=== PATIENT | female | born 1950 | race Caucasian/White ===

== ENCOUNTER 2016-07-09 | Inpatient (IN) | payer MEDICARE, MEDICAID ==
[~2016-07-09] VITALS: Ht 172.7 cm; Wt 103.9 kg
[~2016-07-09] MED LIST: ACET160E13 GT; ACID1TAB4 GT; BACL10TA GT; CALC500T13 PO; COD500OI3 GT; DEXT1DRO3 OP; FOLI1TAB16 GT; GUAR1PAC4 GT; HYDROCODONE 5/325 GT; INSU100V28 SQ; IVER3TAB2 GT; Insulin Glargine,Hum.rec.anlog SQ; LEVE100S GT; LOPE2CAP40 GT; MENT71OI TP; MULT1TAB11 GT; PHEN20EL5 GT; PROSTAT GT; RANI150T8 GT; SIMILASAN EACHEYE; Vancomycin Hcl PO; [UNRECOGNIZED DRUG - CODE] GT; [UNRECOGNIZED DRUG - CODE] IV
--- NOTE | 2016-07-11 07:30 | NUR ---
Received a call from Lab regarding patient's critical Lab result: blood glucose of 346; however, Doctor's order is to call MD for blood glucose above 450. Will continue to monitor.
[2016-07-11 08:00] VITALS: BP 102/66
--- NOTE | 2016-07-11 08:10 | NUR ---
PT WAS RECEIVED ON HT-50 VENT WITH SETTINGS AC12, VT450, PEEP +5, FIO2 35%. PT TRACH SECURED AND INTACT WITH TIE. PT TRACH SIZE SHILEY 6. PT HME WAS CHANGED. PT SUCTION WITH SMALL AMOUNT OF SECRETION OBTAIN. PT AT THIS TIME HAS NO DISTRESS AND TOLERATING VENT WELL. PT AMBU-BAG AND BACK UP TRACH AT BED SIDE. VENT ALARMS ON AND AUDIBLE. WILL CONTINUE TO MONITOR PT THROUGHOUT SHIFT.
--- NOTE | 2016-07-11 11:50 | NUR ---
Paged Dr. Jorgensen, regarding abnormal Lab of Potassium 3.4. With new order, noted and carried out.
--- NOTE | 2016-07-11 15:58 | NUR ---
Seen and examined by VALE Lomax with no new orders.
[2016-07-11] MEDS ORDERED: COD LIVER OIL/ZINC OXIDE OINT 113 GM TUBE TOP PRN (16:30)
[2016-07-11] MEDS ORDERED: POLYVINYL ALCOHOL OPHT DROPS 15 ML BOTTLE EACHEYE PRN (16:30)
[2016-07-11] MEDS ORDERED: HYDROGEN PEROXIDE 3% 118 ML BOTTLE TP PRN (16:30)
[2016-07-11] MEDS ORDERED: DIABETICSOURCE AC 1000ML LIQUID GT PRN (16:30)
[2016-07-11] MEDS ORDERED: DEXTROSE 50% 50 ML DISP.SYRIN IV PRN (16:30)
[2016-07-11] MEDS: BLOOD SUGAR DIAGNOSTIC 1 EACH STRIP VI SCH (17:28)
[2016-07-11] MEDS: INSULIN REGULAR, HUMAN 300 UNIT/3 ML VIAL SQ PRN (17:28)
[2016-07-11] MEDS: BACLOFEN 10 MG TABLET GT SCH (17:28)
[2016-07-11] MEDS: DIABETICSOURCE AC 1000ML LIQUID GT PRN (18:18)
[2016-07-11] MEDS: COD LIVER OIL/ZINC OXIDE OINT 113 GM TUBE TOP SCH (21:00)
[2016-07-11] MEDS: ACIDOPHILUS/BULGARICUS CHEW TAB GT SCH (21:00)
[2016-07-11] MEDS: HYDROGEN PEROXIDE 3% 118 ML BOTTLE TP SCH (21:00)
[2016-07-11] MEDS: CALCIUM CARBONATE 500 MG TAB.CHEW GT SCH (21:00)
[2016-07-11] MEDS: PHENOBARBITAL GT SCH (21:00)
[2016-07-11] MEDS: FAMOTIDINE 20 MG TABLET GT SCH (21:00)
[2016-07-11] MEDS: INSULIN DETEMIR 300 UNIT/3 ML CARTRIDGE SQ SCH (21:00)
[2016-07-11] MEDS: NEOMY/BACITRA/POLYMYXIN B OINT UD PACKET TP SCH (21:00)
[2016-07-11] MEDS: INSULIN NPH 1,000 UNITS/10 ML VIAL SQ SCH (21:00)
[2016-07-11] MEDS: LEVETIRACETAM 500 MG/5 ML LIQUID UDC GT SCH (21:00)
[2016-07-11] MEDS: FISH OIL GT SCH (21:00)
[2016-07-11] MEDS: [UNRECOGNIZED DRUG - OTHER] GT SCH (21:00)
[2016-07-11] MEDS: NUTRISOURCE FIBER 4 GM PACKET GT SCH (22:17)
[2016-07-11 23:34] VITALS: BP 93/55
[2016-07-12] MEDS: INSULIN REGULAR, HUMAN 300 UNIT/3 ML VIAL SQ PRN ×4 (01:02→18:05)
--- NOTE | 2016-07-12 03:00 | NUR ---
PT ON CONT HT 50 VENT WITH SHILEY # [address] AND SECURED, WITH SAME CURRENT VENT SETTINGS, PT DOES ASSIST AT TIMES, SPEEDS UP BREATHING AND THEN SLOWS DOWN, SUCTIONED LIGHT PALE YELL TINGE SECRETIONS, GOOD COUGH EFFORT, CHANGE HME, CHECK CUFF, NO VENT CHANGES MADE AT THIS TIME, ALL ALARMS OK, AMBU BAG AT BEDSIDE.Andi FERGUSON RCP Addendum: 07/12/16 at 0302 by ETHEL FERGUSON RT Amended: Links added.
[2016-07-12] MEDS: BLOOD SUGAR DIAGNOSTIC 1 EACH STRIP VI SCH ×4 (05:24→18:03)
[2016-07-12] MEDS: NUTRISOURCE FIBER 4 GM PACKET GT SCH ×3 (05:24→21:37)
[2016-07-12] MEDS: BACLOFEN 10 MG TABLET GT SCH ×4 (05:24→18:03)
[2016-07-12] MEDS: FUROSEMIDE 40 MG/4 ML GT SCH (08:03)
[2016-07-12] MEDS: LEVETIRACETAM 500 MG/5 ML LIQUID UDC GT SCH ×2 (08:03→21:31)
[2016-07-12] MEDS: ACIDOPHILUS/BULGARICUS CHEW TAB GT SCH ×2 (08:03→21:30)
[2016-07-12] MEDS: COD LIVER OIL/ZINC OXIDE OINT 113 GM TUBE TOP SCH ×2 (08:04→21:36)
[2016-07-12] MEDS: PHENOBARBITAL GT SCH ×2 (08:04→21:32)
[2016-07-12] MEDS: HYDROGEN PEROXIDE 3% 118 ML BOTTLE TP SCH ×2 (08:04→21:36)
[2016-07-12] MEDS: NEOMY/BACITRA/POLYMYXIN B OINT UD PACKET TP SCH ×2 (08:04→21:37)
[2016-07-12] MEDS: FAMOTIDINE 20 MG TABLET GT SCH ×2 (08:04→21:32)
[2016-07-12] MEDS: VITAMINS A AND D OINT TP SCH (08:05)
[2016-07-12] MEDS: POTASSIUM CHLORIDE 20 MEQ TAB.PRT.SR XX SCH ×2 (08:05→17:00)
[2016-07-12] MEDS: INSULIN NPH 1,000 UNITS/10 ML VIAL SQ SCH ×2 (08:07→21:41)
[2016-07-12 08:18] VITALS: BP 111/58
[2016-07-12] MEDS ORDERED: FUROSEMIDE 40 MG TABLET GT SCH (09:00)
[2016-07-12 20:00] VITALS: BP 90/55
--- NOTE | 2016-07-12 20:08 | NUR ---
Received pt on HT-50 vent with the following settings of AC-12, Vt-450, PEEP+5, FIO2-35%, trached with Shiley#6 DCT trach, which is in the place and secure. No s/s of respiratory distress noted. Airway care done, pt responded to physical stimuli. Resus. bag and back up trach at bedside. Vent and alarms on and audible.
[2016-07-12] MEDS: FISH OIL GT SCH (21:32)
[2016-07-12] MEDS: [UNRECOGNIZED DRUG - OTHER] GT SCH (21:32)
[2016-07-12] MEDS: CALCIUM CARBONATE 500 MG TAB.CHEW GT SCH (21:33)
[2016-07-12] MEDS: INSULIN DETEMIR 300 UNIT/3 ML CARTRIDGE SQ SCH (21:40)
[2016-07-12] MEDS: DIABETICSOURCE AC 1000ML LIQUID GT PRN (21:46)
--- NOTE | 2016-07-13 | NUR ---
Patients BS 261, insulin coverage given.
[2016-07-13] MEDS: BACLOFEN 10 MG TABLET GT SCH ×4 (00:41→17:58)
[2016-07-13] MEDS: BLOOD SUGAR DIAGNOSTIC 1 EACH STRIP VI SCH ×4 (00:46→17:59)
[2016-07-13] MEDS: INSULIN REGULAR, HUMAN 300 UNIT/3 ML VIAL SQ PRN ×4 (00:48→18:00)
[2016-07-13] MEDS: NUTRISOURCE FIBER 4 GM PACKET GT SCH ×3 (05:12→21:56)
[2016-07-13 08:00] VITALS: BP 121/66
[2016-07-13] MEDS: LEVETIRACETAM 500 MG/5 ML LIQUID UDC GT SCH ×2 (09:26→21:55)
[2016-07-13] MEDS: ACIDOPHILUS/BULGARICUS CHEW TAB GT SCH ×2 (09:26→21:54)
[2016-07-13] MEDS: FUROSEMIDE 40 MG/4 ML GT SCH (09:27)
[2016-07-13] MEDS: PHENOBARBITAL GT SCH ×2 (09:27→21:55)
[2016-07-13] MEDS: FAMOTIDINE 20 MG TABLET GT SCH ×2 (09:29→21:55)
[2016-07-13] MEDS: NEOMY/BACITRA/POLYMYXIN B OINT UD PACKET TP SCH ×2 (09:30→21:56)
[2016-07-13] MEDS: POTASSIUM CHLORIDE 20 MEQ TAB.PRT.SR XX SCH ×2 (09:30→17:58)
[2016-07-13] MEDS: INSULIN NPH 1,000 UNITS/10 ML VIAL SQ SCH ×2 (09:30→21:56)
[2016-07-13] MEDS: COD LIVER OIL/ZINC OXIDE OINT 113 GM TUBE TOP SCH ×2 (09:30→21:56)
[2016-07-13] MEDS: HYDROGEN PEROXIDE 3% 118 ML BOTTLE TP SCH ×2 (09:30→21:56)
[2016-07-13] MEDS: VITAMINS A AND D OINT TP SCH (09:30)
--- NOTE | 2016-07-13 13:37 | NUR ---
INTERDISCIPLINARY PLAN OF CARE CONFERENCE was held today. Patient's family was invited to the meeting, but they were unable to attend. Dr. Gilbert and the Interdisciplinary Team reviewed the current plan of care in detail. RN provided updates on patient's medical condition and current medications. RN also reported that patient's isolation has been discontinued. See RN IDT conference notes. No other major changes were reported. See also all other disciplines IDT notes and physician's progress notes for additional details.
--- NOTE | 2016-07-13 19:56 | NUR ---
Received pt on HT-50 vent with the following settings of AC-12, Vt-450, PEEP+5, FIO2-35%, trached with Shiley#6 DCT trach, which is in the place and secure. No respiratory distress noted. Airway care done, pt responded to physical stimuli. Resus. bag and back up trach at bedside. Vent and alarms checked and reset.
[2016-07-13 20:00] VITALS: BP 97/51
[2016-07-13] MEDS: DIABETICSOURCE AC 1000ML LIQUID GT PRN (21:30)
[2016-07-13] MEDS: CALCIUM CARBONATE 500 MG TAB.CHEW GT SCH (21:55)
[2016-07-13] MEDS: FISH OIL GT SCH (21:55)
[2016-07-13] MEDS: INSULIN DETEMIR 300 UNIT/3 ML CARTRIDGE SQ SCH (21:55)
[2016-07-13] MEDS: [UNRECOGNIZED DRUG - OTHER] GT SCH (21:55)
[2016-07-14] MEDS: BACLOFEN 10 MG TABLET GT SCH ×5 (00:16→23:13)
[2016-07-14] MEDS: INSULIN REGULAR, HUMAN 300 UNIT/3 ML VIAL SQ PRN ×5 (00:21→23:36)
[2016-07-14] MEDS: BLOOD SUGAR DIAGNOSTIC 1 EACH STRIP VI SCH ×5 (00:23→23:13)
[2016-07-14] MEDS: NUTRISOURCE FIBER 4 GM PACKET GT SCH ×3 (05:23→21:34)
--- NOTE | 2016-07-14 07:50 | NUR ---
PT ON HT-50 VENT, SETTINGS AC12 450VT PEEP+5 35%FIO2. SHILEY 6DCT, TRACH CUFF INFLATED, NO LEAK PRESENT USING MINIMAL OCCLUDING TECH, TRACH IS IN PLACE, PATENT AND SECURED WITH TRACH TIES. NO S/S OF RESPIRATORY DISTRESS NOTED AT THIS TIME. PT SUCTIONED SM/MOD AMOUNT OF YELLOWISH THICK SECRETIONS. BVM AND BACK UP TRACH AT BEDSIDE. ALARMS AUDIBLE, CHECKED AND RESET. PPE USED. WILL CONTINUE TO MONITOR AND REPORT ANY CHANGES.
[2016-07-14 08:00] VITALS: BP 107/67
--- NOTE | 2016-07-14 08:32 | NUR ---
Back of the neck excoriation noted, topical treatment ordered to apply triamcinolone 0.1% cream and nystatin cream, cover with abdominal pad qshift x21 days.
[2016-07-14] MEDS: ACIDOPHILUS/BULGARICUS CHEW TAB GT SCH ×2 (09:12→21:32)
[2016-07-14] MEDS: LEVETIRACETAM 500 MG/5 ML LIQUID UDC GT SCH ×2 (09:12→21:32)
[2016-07-14] MEDS: FUROSEMIDE 40 MG/4 ML GT SCH (09:16)
[2016-07-14] MEDS: PHENOBARBITAL GT SCH ×2 (09:17→21:33)
[2016-07-14] MEDS: FAMOTIDINE 20 MG TABLET GT SCH ×2 (09:17→21:33)
[2016-07-14] MEDS: COD LIVER OIL/ZINC OXIDE OINT 113 GM TUBE TOP SCH ×2 (09:17→21:34)
[2016-07-14] MEDS: TRIAMCINOLONE ACET 0.1% CREAM 15 GM TUBE TP SCH ×2 (09:18→21:34)
[2016-07-14] MEDS: HYDROGEN PEROXIDE 3% 118 ML BOTTLE TP SCH ×2 (09:18→21:33)
[2016-07-14] MEDS: VITAMINS A AND D OINT TP SCH (09:19)
[2016-07-14] MEDS: NEOMY/BACITRA/POLYMYXIN B OINT UD PACKET TP SCH ×2 (09:19→21:34)
[2016-07-14] MEDS: NYSTATIN CREAM 30 GM TUBE TP SCH ×2 (09:19→21:34)
[2016-07-14] MEDS: POTASSIUM CHLORIDE 20 MEQ TAB.PRT.SR XX SCH ×2 (09:20→17:09)
[2016-07-14] MEDS: INSULIN NPH 1,000 UNITS/10 ML VIAL SQ SCH ×2 (09:32→21:56)
[2016-07-14 20:00] VITALS: BP 103/60
[2016-07-14] MEDS: FISH OIL GT SCH (21:32)
[2016-07-14] MEDS: [UNRECOGNIZED DRUG - OTHER] GT SCH (21:32)
[2016-07-14] MEDS: CALCIUM CARBONATE 500 MG TAB.CHEW GT SCH (21:33)
[2016-07-14] MEDS: INSULIN DETEMIR 300 UNIT/3 ML CARTRIDGE SQ SCH (21:55)
[2016-07-14] MEDS: DIABETICSOURCE AC 1000ML LIQUID GT PRN (21:59)
--- NOTE | 2016-07-15 03:51 | NUR ---
PT ON CONT HT 50 VENT WITH SHILEY #[address] AND SECURED, WITH SAME CURRENT VENT SETTINGS, PT DOES ASSIST AT TIMES, GOOD COUGH EFFORT, CHECK CUFF, CHANGE HME, SUCTIONED LIGHT PALE YELL TINGE SECRETIONS, NO VENT CHANGES MADE AT THIS TIME, ALL ALARMS OK, AMBU BAG AT BEDSIDE, PT STABLE.Andi CHAKRABORTYP Addendum: 07/15/16 at 0353 by ETHEL FERGUSON RT Amended: Links added.
[2016-07-15] MEDS: BACLOFEN 10 MG TABLET GT SCH ×3 (05:11→18:35)
[2016-07-15] MEDS: NUTRISOURCE FIBER 4 GM PACKET GT SCH ×3 (05:11→21:31)
[2016-07-15] MEDS: BLOOD SUGAR DIAGNOSTIC 1 EACH STRIP VI SCH ×3 (05:11→18:35)
[2016-07-15] MEDS: INSULIN REGULAR, HUMAN 300 UNIT/3 ML VIAL SQ PRN ×3 (05:13→18:38)
[2016-07-15 08:05] VITALS: BP 95/64
[2016-07-15] MEDS: ACIDOPHILUS/BULGARICUS CHEW TAB GT SCH ×2 (08:35→21:29)
[2016-07-15] MEDS: FAMOTIDINE 20 MG TABLET GT SCH ×2 (08:36→21:30)
[2016-07-15] MEDS: FUROSEMIDE 40 MG/4 ML GT SCH (08:36)
[2016-07-15] MEDS: LEVETIRACETAM 500 MG/5 ML LIQUID UDC GT SCH ×2 (08:36→21:29)
[2016-07-15] MEDS: PHENOBARBITAL GT SCH ×2 (08:36→21:30)
[2016-07-15] MEDS: COD LIVER OIL/ZINC OXIDE OINT 113 GM TUBE TOP SCH ×2 (08:37→21:31)
[2016-07-15] MEDS: HYDROGEN PEROXIDE 3% 118 ML BOTTLE TP SCH ×2 (08:37→21:31)
[2016-07-15] MEDS: TRIAMCINOLONE ACET 0.1% CREAM 15 GM TUBE TP SCH ×2 (08:37→21:31)
[2016-07-15] MEDS: VITAMINS A AND D OINT TP SCH (08:38)
[2016-07-15] MEDS: NYSTATIN CREAM 30 GM TUBE TP SCH ×2 (08:38→21:31)
[2016-07-15] MEDS: NEOMY/BACITRA/POLYMYXIN B OINT UD PACKET TP SCH ×2 (08:38→21:31)
[2016-07-15] MEDS: POTASSIUM CHLORIDE 20 MEQ TAB.PRT.SR XX SCH ×2 (08:38→17:23)
[2016-07-15] MEDS: DIABETICSOURCE AC 1000ML LIQUID GT PRN ×2 (08:38→21:38)
[2016-07-15] MEDS: INSULIN NPH 1,000 UNITS/10 ML VIAL SQ SCH ×2 (08:40→21:32)
[2016-07-15 13:54] LABS: CREATININE 0.9 mg/dL (0.6-1.3); POTASSIUM 3.8 mmol/L (3.5-5.1)
[2016-07-15] MEDS: [UNRECOGNIZED DRUG - OTHER] GT SCH (21:30)
[2016-07-15] MEDS: FISH OIL GT SCH (21:30)
[2016-07-15] MEDS: CALCIUM CARBONATE 500 MG TAB.CHEW GT SCH (21:30)
[2016-07-15] MEDS: INSULIN DETEMIR 300 UNIT/3 ML CARTRIDGE SQ SCH (21:32)
[2016-07-15 22:04] VITALS: BP 92/46
--- NOTE | 2016-07-15 23:53 | NUR ---
PT ON CONT HT 50 VENT WITH SHILEY # [address] AND SECURED, WITH SAME CURRENT VENT SETTINGS, PT DOES ASSIST AT TIMES, CHECK CUFF, CHANGE HME AND PASCUAL, SUCTIONED LIGHT PALE YELL TINGE SECRETIONS, WITH GOOD COUGH EFFORT, ALL ALARMS OK, AMBU BAG AT BEDSIDE, NO VENT CHANGES MADE AT THIS TIME.Andi FERGUSON RCP Addendum: 07/15/16 at 2355 by ETHEL FERGUSON RT Amended: Links added.
[2016-07-16] MEDS: BACLOFEN 10 MG TABLET GT SCH ×4 (00:10→17:16)
[2016-07-16] MEDS: BLOOD SUGAR DIAGNOSTIC 1 EACH STRIP VI SCH ×4 (00:10→17:16)
[2016-07-16] MEDS: INSULIN REGULAR, HUMAN 300 UNIT/3 ML VIAL SQ PRN ×4 (00:11→17:17)
[2016-07-16] MEDS: NUTRISOURCE FIBER 4 GM PACKET GT SCH ×3 (05:39→21:37)
--- NOTE | 2016-07-16 07:27 | NUR ---
Pt received in bed, laying semi-Huff's, obtunded - unable to communicate, withdraws to stimuli.. Pt trach: Surekhaley [address]/secure with tie, no sign of irritation noted around/under trach tie.. Trach site clean/dry at this time, stoma appears normal, no discoloration noted.. Continuous mechanical ventilation, vent: HT-50 w/settings: A/C 12, Vt 450, PEEP +5, FiO2 35%, tolerating well, no changes made to vent settings at this time.. Vent alarms checked, alarms are on/audible and functioning properly at this time.. BVM/back up trach at bedside.. No s/s of respiratory distress/S.O.B noted.. Will continue to monitor..
[2016-07-16 08:06] VITALS: BP 106/64
[2016-07-16] MEDS: ACIDOPHILUS/BULGARICUS CHEW TAB GT SCH ×2 (09:00→21:35)
[2016-07-16] MEDS: LEVETIRACETAM 500 MG/5 ML LIQUID UDC GT SCH ×2 (09:00→21:35)
[2016-07-16] MEDS: FAMOTIDINE 20 MG TABLET GT SCH ×2 (09:01→21:36)
[2016-07-16] MEDS: FUROSEMIDE 40 MG/4 ML GT SCH (09:01)
[2016-07-16] MEDS: PHENOBARBITAL GT SCH ×2 (09:01→21:36)
[2016-07-16] MEDS: INSULIN NPH 1,000 UNITS/10 ML VIAL SQ SCH ×2 (09:02→21:14)
[2016-07-16] MEDS: NEOMY/BACITRA/POLYMYXIN B OINT UD PACKET TP SCH ×2 (09:03→21:37)
[2016-07-16] MEDS: HYDROGEN PEROXIDE 3% 118 ML BOTTLE TP SCH ×2 (09:03→21:36)
[2016-07-16] MEDS: COD LIVER OIL/ZINC OXIDE OINT 113 GM TUBE TOP SCH ×2 (09:03→21:36)
[2016-07-16] MEDS: POTASSIUM CHLORIDE 20 MEQ TAB.PRT.SR XX SCH ×2 (09:03→17:16)
[2016-07-16] MEDS: NYSTATIN CREAM 30 GM TUBE TP SCH ×2 (09:03→21:36)
[2016-07-16] MEDS: TRIAMCINOLONE ACET 0.1% CREAM 15 GM TUBE TP SCH ×2 (09:03→21:36)
[2016-07-16] MEDS: VITAMINS A AND D OINT TP SCH (09:03)
--- NOTE | 2016-07-16 19:45 | NUR ---
Pt received in semi diaz position, has limited response to verbal stimuli, and is on Continuous mechanical ventilation via trach. Trach is a Shiley 8. Trach is patent and secure. No irritation or redness noted around stoma or trach tie. Pt is on [place] HT-50 vent with settings of A/C-12, VT-450, FIO2-35%. Tolerating vent settings well. SpO2-98%. HME changed. PPE used. Vent alarm parameters checked, on and audible. Vent plugged into red emergency outlet. Bag/valve/mask and back up trach bedside. Addendum: 07/29/16 at 1724 by ANTON HORVATH RT Wrong size entered incorrectly. Actual size is Shiley 6
[2016-07-16] MEDS: INSULIN DETEMIR 300 UNIT/3 ML CARTRIDGE SQ SCH (21:13)
[2016-07-16] MEDS: [UNRECOGNIZED DRUG - OTHER] GT SCH (21:36)
[2016-07-16] MEDS: FISH OIL GT SCH (21:36)
[2016-07-16] MEDS: CALCIUM CARBONATE 500 MG TAB.CHEW GT SCH (21:36)
[2016-07-16] MEDS: DIABETICSOURCE AC 1000ML LIQUID GT PRN (22:47)
[2016-07-16 23:31] VITALS: BP 110/58
[2016-07-17] MEDS: BLOOD SUGAR DIAGNOSTIC 1 EACH STRIP VI SCH ×4 (00:37→18:05)
[2016-07-17] MEDS: INSULIN REGULAR, HUMAN 300 UNIT/3 ML VIAL SQ PRN ×4 (01:02→18:06)
[2016-07-17] MEDS: BACLOFEN 10 MG TABLET GT SCH ×4 (06:04→17:41)
[2016-07-17] MEDS: NUTRISOURCE FIBER 4 GM PACKET GT SCH ×3 (06:04→21:30)
[2016-07-17 08:00] VITALS: BP 114/63
[2016-07-17] MEDS: ACIDOPHILUS/BULGARICUS CHEW TAB GT SCH ×2 (08:02→21:28)
[2016-07-17] MEDS: LEVETIRACETAM 500 MG/5 ML LIQUID UDC GT SCH ×2 (08:02→21:28)
[2016-07-17] MEDS: PHENOBARBITAL GT SCH ×2 (08:03→21:29)
[2016-07-17] MEDS: FAMOTIDINE 20 MG TABLET GT SCH ×2 (08:03→21:29)
[2016-07-17] MEDS: INSULIN NPH 1,000 UNITS/10 ML VIAL SQ SCH ×2 (08:03→21:10)
[2016-07-17] MEDS: FUROSEMIDE 40 MG/4 ML GT SCH (08:03)
[2016-07-17] MEDS: COD LIVER OIL/ZINC OXIDE OINT 113 GM TUBE TOP SCH ×2 (08:03→21:29)
[2016-07-17] MEDS: NEOMY/BACITRA/POLYMYXIN B OINT UD PACKET TP SCH ×2 (08:04→21:29)
[2016-07-17] MEDS: TRIAMCINOLONE ACET 0.1% CREAM 15 GM TUBE TP SCH ×2 (08:04→21:29)
[2016-07-17] MEDS: NYSTATIN CREAM 30 GM TUBE TP SCH ×2 (08:04→21:29)
[2016-07-17] MEDS: VITAMINS A AND D OINT TP SCH (08:04)
[2016-07-17] MEDS: POTASSIUM CHLORIDE 20 MEQ TAB.PRT.SR XX SCH ×2 (08:04→17:41)
[2016-07-17] MEDS: HYDROGEN PEROXIDE 3% 118 ML BOTTLE TP SCH ×2 (08:04→21:29)
--- NOTE | 2016-07-17 08:05 | NUR ---
RECEIVED ON CONTINUOUS VENT AC 14 VT 450 PEEP 5 FIO2 35%. TRACH IN PLACE AND SECURED. BACK UP TRACH AND AMBU BAG AT BEDSIDE. SUCTION SMALL AMOUNT THICK PALE YELLOW SECRETIONS. VENT CHECKED, ALARMS WORKING WELL AND AUDIBLE. VENT CHECKED, ALARMS WORKING WELL AND AUDIBLE. NO DISTRESS NOTED AT THIS TIME. WILL CONTINUE TO MONITOR.
--- NOTE | 2016-07-17 10:55 | NUR ---
ESTEFANÍA spoke with patient's father Paolo Zhou [phone] regarding the need for him to sign the annual admission forms for patient. Mr. Zhou stated that he was not feeling well and would probably not be able to come in this week. SW offered to mail him the forms, but Mr. Zhou stated that he will try to come in next week to meet with SW and for SW not to mail the forms to him just yet. ESTEFANÍA agreed, and will follow-up with Mr. Zhou next week.
--- NOTE | 2016-07-17 11:47 | NUR ---
SEEN BY HARSH FULLER.
--- NOTE | 2016-07-17 14:59 | NUR ---
SEEN BY DENISE FULLER.
--- NOTE | 2016-07-17 20:55 | NUR ---
Pt received on HT-50 ventilator with current settings of AC 12, VT 450, Peep +5, FiO2 35%. Pt has a Shiley 6 DCT trach which is secured with foam ties and is patent. No signs of respiratory distress noted at this time, pt tolerating vent settings well. Changed HME. Suctioned pt with small amount of thick pale-yellowish secretions. Vent alarms functioning and audible. Ambu-bag and back-up trach is at bedside. Will continue to monitor pt throughout shift.
[2016-07-17] MEDS: INSULIN DETEMIR 300 UNIT/3 ML CARTRIDGE SQ SCH (21:09)
[2016-07-17] MEDS: FISH OIL GT SCH (21:28)
[2016-07-17] MEDS: [UNRECOGNIZED DRUG - OTHER] GT SCH (21:28)
[2016-07-17] MEDS: CALCIUM CARBONATE 500 MG TAB.CHEW GT SCH (21:29)
[2016-07-17] MEDS: DIABETICSOURCE AC 1000ML LIQUID GT PRN (21:39)
[2016-07-17 21:55] VITALS: BP 120/67
[2016-07-18] MEDS: INSULIN REGULAR, HUMAN 300 UNIT/3 ML VIAL SQ PRN ×4 (01:12→18:23)
--- NOTE | 2016-07-18 05:50 | NUR ---
Transferred pt to room 402, due to room scheduled to be painted. Used ambu-bag during transport. Pt subsequently placed back on same vent, no changes to settings. Alarms connected and functioning. Plugged in vent to red-outlet. No distress, no complications during transport.
[2016-07-18] MEDS: NUTRISOURCE FIBER 4 GM PACKET GT SCH ×3 (06:02→21:57)
[2016-07-18] MEDS: BACLOFEN 10 MG TABLET GT SCH ×5 (06:02→23:11)
[2016-07-18] MEDS: BLOOD SUGAR DIAGNOSTIC 1 EACH STRIP VI SCH ×4 (06:03→18:19)
--- NOTE | 2016-07-18 07:29 | NUR ---
PT RECEIVED ON HT-50 VENT, SETTINGS AC 12, Vt 450, PEEP +5, FIO2 35%. SHILEY 6 TRACH IS PATENT AND SECURED WITH TIES. DOING WELL ON CURRENT SETTING. NO SOB AT THIS TIME. SUCTIONED AND LAVAGED SMALL AMOUNT OF PALE YELLOW THICK SECRETIONS. HME CHANGED. ALARMS ARE AND AUDIBLE, BVM AND BACK UP TRACH AT BEDSIDE. WILL CONTINUE TO MONITOR.
--- NOTE | 2016-07-18 08:41 | NUR ---
NOTED DURING MORNING CARE PT. WITH LEFT FOOT SMALL TOE REDNESS,LOCAL TX STARTED FROM HARSH Cowan AND PICTURE TAKEN.
[2016-07-18] MEDS: LEVETIRACETAM 500 MG/5 ML LIQUID UDC GT SCH ×2 (09:25→21:55)
[2016-07-18] MEDS: ACIDOPHILUS/BULGARICUS CHEW TAB GT SCH ×2 (09:25→21:54)
[2016-07-18] MEDS: FUROSEMIDE 40 MG/4 ML GT SCH (09:26)
[2016-07-18] MEDS: FAMOTIDINE 20 MG TABLET GT SCH ×2 (09:27→21:55)
[2016-07-18] MEDS: HYDROGEN PEROXIDE 3% 118 ML BOTTLE TP SCH ×2 (09:27→21:56)
[2016-07-18] MEDS: POTASSIUM CHLORIDE 20 MEQ TAB.PRT.SR XX SCH ×2 (09:27→17:00)
[2016-07-18] MEDS: TRIAMCINOLONE ACET 0.1% CREAM 15 GM TUBE TP SCH ×2 (09:27→21:56)
[2016-07-18] MEDS: VITAMINS A AND D OINT TP SCH ×2 (09:27→09:41)
[2016-07-18] MEDS: NEOMY/BACITRA/POLYMYXIN B OINT UD PACKET TP SCH ×3 (09:27→21:56)
[2016-07-18] MEDS: PHENOBARBITAL GT SCH ×2 (09:27→21:55)
[2016-07-18] MEDS: NYSTATIN CREAM 30 GM TUBE TP SCH ×2 (09:27→21:56)
[2016-07-18] MEDS: COD LIVER OIL/ZINC OXIDE OINT 113 GM TUBE TOP SCH ×2 (09:27→21:56)
[2016-07-18 09:30] VITALS: BP 91/52
[2016-07-18] MEDS: INSULIN NPH 1,000 UNITS/10 ML VIAL SQ SCH ×2 (09:30→21:57)
--- NOTE | 2016-07-18 10:33 | NUR ---
SEEN BY MÓNICA FULLER.
--- NOTE | 2016-07-18 11:30 | NUR ---
SEEN BY HARSH ROMERO OUT.
--- NOTE | 2016-07-18 12:00 | NUR ---
NEW ORDER FOR LOCAL TX FOR LEFT FOOT 2ND TOE TOENAIL BED WITH MISSING TOENAIL,LOCAL TX STARTED AND PICTURE TAKEN AND WITH PODIATRY CARE CONSULT ORDER ,[facility]AT HYDRAULICKER FORTINO WAS NOTIFIED.
--- NOTE | 2016-07-18 14:08 | NUR ---
SW received an order for podiatry consult. Order and facesheet faxed to Dr. Hopkins at [phone] (tel # [phone]). TYRESE Cohen informed that order was faxed to Dr. Hopkins.
--- NOTE | 2016-07-18 15:47 | NUR ---
SEEN BY DENISE FULLER.
--- NOTE | 2016-07-18 19:53 | NUR ---
Resident endorsed on HT 50 ventilator with ordered settings of AC 12, vt450, +5 , 35% FiO2. No sign or symptoms of respiratory distress noted at this time. Suctioned as needed without complications. Shiley 6 DCT secure and patent. HME changed. Alarms on and audible. Will continue to monitor throughout shift.
[2016-07-18 20:29] VITALS: BP 114/50
[2016-07-18] MEDS: FISH OIL GT SCH (21:55)
[2016-07-18] MEDS: [UNRECOGNIZED DRUG - OTHER] GT SCH (21:55)
[2016-07-18] MEDS: CALCIUM CARBONATE 500 MG TAB.CHEW GT SCH (21:56)
[2016-07-18] MEDS: INSULIN DETEMIR 300 UNIT/3 ML CARTRIDGE SQ SCH (21:57)
[2016-07-18] MEDS: DIABETICSOURCE AC 1000ML LIQUID GT PRN (22:06)
[2016-07-19] MEDS: BLOOD SUGAR DIAGNOSTIC 1 EACH STRIP VI SCH ×4 (00:24→17:06)
[2016-07-19] MEDS: INSULIN REGULAR, HUMAN 300 UNIT/3 ML VIAL SQ PRN ×4 (00:25→17:07)
[2016-07-19] MEDS: BACLOFEN 10 MG TABLET GT SCH ×4 (05:04→23:15)
[2016-07-19] MEDS: NUTRISOURCE FIBER 4 GM PACKET GT SCH ×3 (05:05→21:19)
--- NOTE | 2016-07-19 07:44 | NUR ---
Pt received in bed, laying semi-Huff's, obtunded - unable to communicate, withdraws to stimuli.. Pt trach: Surekhaley [address] / secure with tie, no sign of irritation noted around / under trach tie.. Trach site clean / dry at this time, stoma appears normal, no discoloration noted.. Continuous mechanical ventilation, vent: HT-50 w/settings: A/C 12, Vt 450, PEEP +5, FiO2 35%, tolerating well, no changes made to vent settings at this time.. Vent alarms checked, alarms are on/audible and functioning properly at this time.. BVM/back up trach at bedside.. No s/s of respiratory distress / S.O.B noted.. Will continue to monitor..
[2016-07-19] MEDS: ACIDOPHILUS/BULGARICUS CHEW TAB GT SCH ×2 (08:42→21:15)
[2016-07-19] MEDS: FUROSEMIDE 40 MG/4 ML GT SCH (08:42)
[2016-07-19] MEDS: LEVETIRACETAM 500 MG/5 ML LIQUID UDC GT SCH ×2 (08:42→21:16)
[2016-07-19] MEDS: HYDROGEN PEROXIDE 3% 118 ML BOTTLE TP SCH ×2 (08:44→21:19)
[2016-07-19] MEDS: TRIAMCINOLONE ACET 0.1% CREAM 15 GM TUBE TP SCH ×2 (08:44→21:19)
[2016-07-19] MEDS: PHENOBARBITAL GT SCH ×2 (08:44→21:16)
[2016-07-19] MEDS: NEOMY/BACITRA/POLYMYXIN B OINT UD PACKET TP SCH ×3 (08:44→21:19)
[2016-07-19] MEDS: VITAMINS A AND D OINT TP SCH ×2 (08:44)
[2016-07-19] MEDS: FAMOTIDINE 20 MG TABLET GT SCH ×2 (08:44→21:16)
[2016-07-19] MEDS: COD LIVER OIL/ZINC OXIDE OINT 113 GM TUBE TOP SCH ×2 (08:44→21:19)
[2016-07-19] MEDS: NYSTATIN CREAM 30 GM TUBE TP SCH ×2 (08:44→21:19)
[2016-07-19] MEDS: POTASSIUM CHLORIDE 20 MEQ TAB.PRT.SR XX SCH ×2 (08:44→17:06)
[2016-07-19] MEDS: INSULIN NPH 1,000 UNITS/10 ML VIAL SQ SCH ×2 (08:47→21:15)
[2016-07-19 11:14] VITALS: BP 110/61
--- NOTE | 2016-07-19 16:46 | NUR ---
Annual dental exam scheduled for Sunday07/31/[address] Akhtar. Patient's father informed.
--- NOTE | 2016-07-19 18:50 | NUR ---
SEEN AND EXAMINED BY DR BRANETT,WITH NO NEW ORDERS NOTED.
[2016-07-19 20:48] VITALS: BP 113/65
--- NOTE | 2016-07-19 21:08 | NUR ---
PT ON CONT HT 50 VENT WITH SHILEY #[address] AND SECURED, WITH SAME CURRENT VENT SETTINGS, PT DOES ASSIST AT TIMES, CHECK CUFF, CHANGE HME, SUCTION LIGHT PALE YELL TINGE SECRETIONS, WITH GOOD COUGH EFFORT, ALL ALARMS OK, AMBU BAG AT BEDSIDE, NO VENT CHANGES MADE AT THIS TIME, PT STABLE.Andi CHAKRABORTYP Addendum: 07/19/16 at 2110 by ETHEL FERGUSON RT Amended: Links added.
[2016-07-19] MEDS: INSULIN DETEMIR 300 UNIT/3 ML CARTRIDGE SQ SCH (21:15)
[2016-07-19] MEDS: [UNRECOGNIZED DRUG - OTHER] GT SCH (21:16)
[2016-07-19] MEDS: FISH OIL GT SCH (21:16)
[2016-07-19] MEDS: CALCIUM CARBONATE 500 MG TAB.CHEW GT SCH (21:17)
[2016-07-19] MEDS: DIABETICSOURCE AC 1000ML LIQUID GT PRN (21:22)
[2016-07-19] MEDS: ACETAMINOPHEN 650 MG/20 ML UDC- FOR SA ONLY GT PRN (21:24)
[2016-07-20] MEDS: BLOOD SUGAR DIAGNOSTIC 1 EACH STRIP VI SCH ×5 (00:39→23:54)
[2016-07-20] MEDS: INSULIN REGULAR, HUMAN 300 UNIT/3 ML VIAL SQ PRN ×5 (00:40→23:58)
[2016-07-20] MEDS: BACLOFEN 10 MG TABLET GT SCH ×4 (05:50→23:51)
[2016-07-20] MEDS: NUTRISOURCE FIBER 4 GM PACKET GT SCH ×3 (05:50→22:14)
[2016-07-20 08:00] VITALS: BP 114/79
[2016-07-20] MEDS: LEVETIRACETAM 500 MG/5 ML LIQUID UDC GT SCH ×2 (08:47→20:40)
[2016-07-20] MEDS: ACIDOPHILUS/BULGARICUS CHEW TAB GT SCH ×2 (08:47→20:40)
[2016-07-20] MEDS: FUROSEMIDE 40 MG/4 ML GT SCH (08:48)
[2016-07-20] MEDS: PHENOBARBITAL GT SCH ×2 (08:48→20:41)
[2016-07-20] MEDS: COD LIVER OIL/ZINC OXIDE OINT 113 GM TUBE TOP SCH ×2 (08:50→20:48)
[2016-07-20] MEDS: HYDROGEN PEROXIDE 3% 118 ML BOTTLE TP SCH ×2 (08:50→20:48)
[2016-07-20] MEDS: FAMOTIDINE 20 MG TABLET GT SCH ×2 (08:50→20:42)
[2016-07-20] MEDS: NYSTATIN CREAM 30 GM TUBE TP SCH ×2 (08:51→20:48)
[2016-07-20] MEDS: VITAMINS A AND D OINT TP SCH ×2 (08:51)
[2016-07-20] MEDS: NEOMY/BACITRA/POLYMYXIN B OINT UD PACKET TP SCH ×2 (08:51)
[2016-07-20] MEDS: TRIAMCINOLONE ACET 0.1% CREAM 15 GM TUBE TP SCH ×2 (08:51→20:48)
[2016-07-20] MEDS: POTASSIUM CHLORIDE 20 MEQ TAB.PRT.SR XX SCH ×2 (08:52→17:21)
[2016-07-20] MEDS: INSULIN NPH 1,000 UNITS/10 ML VIAL SQ SCH ×2 (08:53→20:48)
--- NOTE | 2016-07-20 13:10 | NUR ---
PHARMACY NOTES FOR 07/20/16 IDT MEETING: -VS: TEMP 97.7, HR 77, BP 114/79 -LABS: (07/11/16) WBC 6.1, H/H 9.7/28.7, PLATELET 69 (07/15/16) NA 142, K 3.8, CL 106,CO2 32, BUN/SCR 27/0.9, BS 318, CA 8.3 -MEDICATION USE REVIEWED: >PT IS NOT ON ANY ANTI-PSYCH MEDICATION >ON PHENOBARBITAL 50 MG BID LAST LEVEL 21 (15-39)(06/26/16); AND 23 (06/30) >ON KEPPRA 750 MG BID, CALCULATED CRCL 65.4 ML/MIN LEVEL LAST LEVEL 43.8 (10-40) (06/16/16) >PT IS NOT ON ANY ANTI-PSYCHOTIC MEDICATION >PT CONTINUES ON LEVEMIR 60 UNITS EVERY NIGHT + NPH INSULIN 32 UNITS Q12H + CUSTOM SLIDING SCALE COVERED WITH REGULAR INSULIN + 8 UNITS OF REGULAR INSULIN IN ADDITION. BS RANGED 125-360 >PRN MEDS INCLUDE TYLENOL 650(MILD-MOD PAIN) NOT USED; TYLENOL 1000 (SEVERE PAIN) ; TYLENOL 650 MG (ELEVATED TEMP) NONE USED AND ARTIFICIAL TEARS NOT USED -NEW ORDERS NOTED: >LEFT A NOTE FOR MD TO ORDER PHENOBARBITAL LEVEL CBC AND CHEM 8 IT WAS ORDERED ON 06/26 >PT HAD 1 EPISODE OF SEIZURE ON 06/27 FOR WHICH MD ORDERED ATIVAN 1 MG IV X 1 >MD ORDERED NORCO 5/325 1TAB Q6H PRN MOD -SEVERE PAIN WILL RE-WRITE THE PAIN MEDS WITH RELATIVE PAIN SCALE >PT'S POTASSIUM WAS ON LOW SIDE; EVEN THOUGH SHE WAS ON KCL 40 MEQ DAILY.PT RECEIVED MULTIPLE DOSE OF KCL BOLUS MD ADDED KCL 20 MEQ Q1700 IN ADDITION TO DAILY DOSE ON 07/11/16 >PT IS MISSING A TOE NAIL ON THE LEFT SECOND TOE MD ORDERED TRIPLE ABX OINT DAILY X 10 DAYS (07/09/16) NO NEW RECOMMENDATION AT THIS TIME WILL CONTINUE TO MONITOR Addendum: 07/20/16 at 1423 by RITO GODFREY CURRENTLY PT IS ON TYLENOL 650 MG Q6H PRN PAIN LEVEL 1-11/15 AND ON NORCO 1T Q6H PRN PAIN LEVEL 6-04/17
[2016-07-20 20:25] VITALS: BP 117/68
[2016-07-20] MEDS: FISH OIL GT SCH (20:41)
[2016-07-20] MEDS: [UNRECOGNIZED DRUG - OTHER] GT SCH (20:41)
[2016-07-20] MEDS: CALCIUM CARBONATE 500 MG TAB.CHEW GT SCH (20:43)
[2016-07-20] MEDS: INSULIN DETEMIR 300 UNIT/3 ML CARTRIDGE SQ SCH (20:47)
[2016-07-20] MEDS: DIABETICSOURCE AC 1000ML LIQUID GT PRN (20:50)
--- NOTE | 2016-07-20 22:48 | NUR ---
PT ON CONT HT 50 VENT WITH SHILEY # [address] AND SECURED, WITH SAME CURRENT VENT SETTINGS, PT DOES ASSIST AT TIMES, GOOD COUGH EFFORT, SUCTIONED LIGHT PALE YELL TINGE SECRETIONS WITH NO VENT CHANGES MADE, ALL ALARMS OK, AMBU BAG AT BEDSIDE, PT STABLE, CHANGE HME. Andi FERGUSON HAT STOCK LAMINATING MACHINE OPERATOR Addendum: 07/20/16 at 2250 by ETHEL FERGUSON RT Amended: Links added.
[2016-07-21] MEDS: BACLOFEN 10 MG TABLET GT SCH ×4 (05:11→23:37)
[2016-07-21] MEDS: NUTRISOURCE FIBER 4 GM PACKET GT SCH ×3 (05:11→21:56)
[2016-07-21] MEDS: BLOOD SUGAR DIAGNOSTIC 1 EACH STRIP VI SCH ×4 (05:12→23:38)
[2016-07-21] MEDS: INSULIN REGULAR, HUMAN 300 UNIT/3 ML VIAL SQ PRN ×4 (05:44→18:52)
[2016-07-21 08:00] VITALS: BP 121/78
--- NOTE | 2016-07-21 08:01 | NUR ---
Pt received laying in bed, semi-Huff's, obtunded - unable to communicate, withdraws to stimuli.. Pt trach: Shiley [address] / secure with tie, no sign of irritation noted around / under trach tie.. Trach site clean / dry at this time, stoma appears normal, no discoloration noted.. Continuous mechanical ventilation, vent: HT-50 w/settings: A/C 12, Vt 450, PEEP +5, FiO2 35%, tolerating well, no changes made to vent settings at this time.. Vent alarms checked, alarms are on/audible and functioning properly at this time.. BVM/back up trach at bedside.. No s/s of respiratory distress / S.O.B noted.. Will continue to monitor..
[2016-07-21] MEDS: LEVETIRACETAM 500 MG/5 ML LIQUID UDC GT SCH ×2 (09:11→21:50)
[2016-07-21] MEDS: ACIDOPHILUS/BULGARICUS CHEW TAB GT SCH ×2 (09:11→21:50)
[2016-07-21] MEDS: FUROSEMIDE 40 MG/4 ML GT SCH (09:14)
[2016-07-21] MEDS: PHENOBARBITAL GT SCH ×2 (09:14→21:50)
[2016-07-21] MEDS: COD LIVER OIL/ZINC OXIDE OINT 113 GM TUBE TOP SCH ×2 (09:15→21:55)
[2016-07-21] MEDS: FAMOTIDINE 20 MG TABLET GT SCH ×2 (09:15→21:50)
[2016-07-21] MEDS: HYDROGEN PEROXIDE 3% 118 ML BOTTLE TP SCH ×2 (09:15→21:55)
[2016-07-21] MEDS: TRIAMCINOLONE ACET 0.1% CREAM 15 GM TUBE TP SCH ×2 (09:16→21:55)
[2016-07-21] MEDS: NYSTATIN CREAM 30 GM TUBE TP SCH ×2 (09:16→21:56)
[2016-07-21] MEDS: VITAMINS A AND D OINT TP SCH ×2 (09:17→09:18)
[2016-07-21] MEDS: NEOMY/BACITRA/POLYMYXIN B OINT UD PACKET TP SCH (09:17)
[2016-07-21] MEDS: POTASSIUM CHLORIDE 20 MEQ TAB.PRT.SR XX SCH ×2 (09:18→17:37)
[2016-07-21] MEDS: INSULIN NPH 1,000 UNITS/10 ML VIAL SQ SCH ×2 (09:28→21:55)
[2016-07-21] MEDS: DIABETICSOURCE AC 1000ML LIQUID GT PRN (16:40)
[2016-07-21 20:00] VITALS: BP 120/65
--- NOTE | 2016-07-21 20:30 | NUR ---
RECEIVED ON CONTINUOUS VENT AC 12 VT 450 PEEP 5 FIO2 35%. TRACH IN PLACE AND SECURED. BACK UP TRACH AND AMBU BAG AT BEDSIDE. SUCTION SMALL AMOUNT THICK PALE YELLOW SECRETIONS. VENT CHECKED, ALARMS WORKING WELL AND AUDIBLE. NO DISTRESS NOTED AT THIS TIME.
[2016-07-21] MEDS: FISH OIL GT SCH (21:50)
[2016-07-21] MEDS: CALCIUM CARBONATE 500 MG TAB.CHEW GT SCH (21:50)
[2016-07-21] MEDS: [UNRECOGNIZED DRUG - OTHER] GT SCH (21:50)
[2016-07-21] MEDS: INSULIN DETEMIR 300 UNIT/3 ML CARTRIDGE SQ SCH (21:54)
[2016-07-22] MEDS: INSULIN REGULAR, HUMAN 300 UNIT/3 ML VIAL SQ PRN ×5 (00:19→23:49)
[2016-07-22] MEDS: BACLOFEN 10 MG TABLET GT SCH ×4 (05:27→23:41)
[2016-07-22] MEDS: NUTRISOURCE FIBER 4 GM PACKET GT SCH ×3 (05:27→21:44)
[2016-07-22] MEDS: BLOOD SUGAR DIAGNOSTIC 1 EACH STRIP VI SCH ×4 (05:28→23:47)
--- NOTE | 2016-07-22 07:41 | NUR ---
SEEN BY DR. BARNETT AND WITH NNO.
[2016-07-22 08:03] VITALS: BP 99/58
[2016-07-22] MEDS: ACIDOPHILUS/BULGARICUS CHEW TAB GT SCH ×2 (09:50→21:43)
[2016-07-22] MEDS: LEVETIRACETAM 500 MG/5 ML LIQUID UDC GT SCH ×2 (09:50→21:43)
[2016-07-22] MEDS: INSULIN NPH 1,000 UNITS/10 ML VIAL SQ SCH ×2 (09:52→21:47)
[2016-07-22] MEDS: FUROSEMIDE 40 MG/4 ML GT SCH (09:52)
[2016-07-22] MEDS: COD LIVER OIL/ZINC OXIDE OINT 113 GM TUBE TOP SCH ×2 (09:53→21:44)
[2016-07-22] MEDS: HYDROGEN PEROXIDE 3% 118 ML BOTTLE TP SCH ×2 (09:53→21:44)
[2016-07-22] MEDS: PHENOBARBITAL GT SCH ×2 (09:53→21:43)
[2016-07-22] MEDS: NYSTATIN CREAM 30 GM TUBE TP SCH ×2 (09:53→21:47)
[2016-07-22] MEDS: FAMOTIDINE 20 MG TABLET GT SCH ×2 (09:53→21:43)
[2016-07-22] MEDS: TRIAMCINOLONE ACET 0.1% CREAM 15 GM TUBE TP SCH ×2 (09:53→21:44)
[2016-07-22] MEDS: POTASSIUM CHLORIDE 20 MEQ TAB.PRT.SR XX SCH ×2 (09:54→17:36)
[2016-07-22] MEDS: NEOMY/BACITRA/POLYMYXIN B OINT UD PACKET TP SCH (09:54)
[2016-07-22] MEDS: VITAMINS A AND D OINT TP SCH ×2 (09:54)
--- NOTE | 2016-07-22 15:06 | NUR ---
SEEN BY AND ROXIEO.
[2016-07-22] MEDS: DIABETICSOURCE AC 1000ML LIQUID GT PRN (16:35)
--- NOTE | 2016-07-22 16:57 | NUR ---
SEEN BY DR. SHAHID (CONTINUOUS VULCANIZING MACHINE OPERATOR) AND EXAMINED BOTH FEET AND WITH NEW ORDERS CARRIED OUT.
--- NOTE | 2016-07-22 20:30 | NUR ---
Received pt on HT-50 vent with current settings of AC 12, VT 450, Peep +5, FiO2 35%. Pt has a Shiley 6 DCT trach which is secured with foam ties and is patent. Pt tolerating vent settings well, no signs of respiratory distress noted at this time. Changed HME and suction salguero. Suctioned pt with moderate amount of thick pale-yellowish secretions. Vent alarms functioning and audible. Ambu-bag and back-up trach is at bedside. Will continue to monitor pt throughout shift.
[2016-07-22 20:55] VITALS: BP 116/56
[2016-07-22] MEDS: CALCIUM CARBONATE 500 MG TAB.CHEW GT SCH (21:43)
[2016-07-22] MEDS: [UNRECOGNIZED DRUG - OTHER] GT SCH (21:43)
[2016-07-22] MEDS: FISH OIL GT SCH (21:43)
[2016-07-22] MEDS: INSULIN DETEMIR 300 UNIT/3 ML CARTRIDGE SQ SCH (21:48)
[2016-07-23] MEDS: BACLOFEN 10 MG TABLET GT SCH ×4 (05:18→23:15)
[2016-07-23] MEDS: NUTRISOURCE FIBER 4 GM PACKET GT SCH ×3 (05:18→21:44)
[2016-07-23] MEDS: BLOOD SUGAR DIAGNOSTIC 1 EACH STRIP VI SCH ×4 (05:18→23:16)
[2016-07-23] MEDS: INSULIN REGULAR, HUMAN 300 UNIT/3 ML VIAL SQ PRN ×4 (05:19→23:17)
--- NOTE | 2016-07-23 08:15 | NUR ---
RECEIVED ON CONTINUOUS VENT AC 12 VT 450 PEEP 5 FIO2 35%. TRACH IN PLACE AND SECURED. BACK UP TRACH AND AMBU BAG AT BEDSIDE. SUCTION SMALL AMOUNT THICK WHITE SECRETIONS. VENT CHECKED, ALARMS WORKING WELL AND AUDIBLE. NO DISTRESS NOTED AT THIS TIME.
[2016-07-23] MEDS: FAMOTIDINE 20 MG TABLET GT SCH ×2 (08:26→21:41)
[2016-07-23] MEDS: PHENOBARBITAL GT SCH ×2 (08:26→21:41)
[2016-07-23] MEDS: LEVETIRACETAM 500 MG/5 ML LIQUID UDC GT SCH ×2 (08:26→21:41)
[2016-07-23] MEDS: FUROSEMIDE 40 MG/4 ML GT SCH (08:26)
[2016-07-23] MEDS: ACIDOPHILUS/BULGARICUS CHEW TAB GT SCH ×2 (08:26→21:41)
[2016-07-23] MEDS: COD LIVER OIL/ZINC OXIDE OINT 113 GM TUBE TOP SCH ×2 (08:27→21:42)
[2016-07-23] MEDS: INSULIN NPH 1,000 UNITS/10 ML VIAL SQ SCH ×2 (08:27→21:43)
[2016-07-23] MEDS: HYDROGEN PEROXIDE 3% 118 ML BOTTLE TP SCH ×2 (08:27→21:44)
[2016-07-23] MEDS: TRIAMCINOLONE ACET 0.1% CREAM 15 GM TUBE TP SCH ×2 (08:28→21:44)
[2016-07-23] MEDS: NYSTATIN CREAM 30 GM TUBE TP SCH ×2 (08:57→21:44)
[2016-07-23] MEDS: POTASSIUM CHLORIDE 20 MEQ TAB.PRT.SR XX SCH ×2 (08:57→17:23)
[2016-07-23] MEDS: NEOMY/BACITRA/POLYMYXIN B OINT UD PACKET TP SCH (08:57)
[2016-07-23] MEDS: VITAMINS A AND D OINT TP SCH (08:57)
[2016-07-23 09:33] VITALS: BP 105/58
--- NOTE | 2016-07-23 19:57 | NUR ---
RECEIVED ON HT-50 VENT WITH VENT SETTINGS: A/C 12, VT 450, PEEP +5, FIO2 35%. PT TOLERATING VENT SETTINGS WITH NO ISSUES NOTED. SH. #6DCT TRACH IS PATENT AND SECURED WITH TRACH TIES. PT TOLERATING SUCTION WITH NO ISSUES. HME CHANGED. ALARM PARAMETERS CHECKED. ALARMS ON AND AUDIBLE. AMBU BAG AND BACK UP TRACH ARE AT BEDSIDE. WILL CONTINUE TO MONITOR PT THROUGHOUT SHIFT.
[2016-07-23 21:20] VITALS: BP 103/62
[2016-07-23] MEDS: CALCIUM CARBONATE 500 MG TAB.CHEW GT SCH (21:41)
[2016-07-23] MEDS: [UNRECOGNIZED DRUG - OTHER] GT SCH (21:41)
[2016-07-23] MEDS: FISH OIL GT SCH (21:41)
[2016-07-23] MEDS: INSULIN DETEMIR 300 UNIT/3 ML CARTRIDGE SQ SCH (21:44)
[2016-07-24] MEDS: BACLOFEN 10 MG TABLET GT SCH ×4 (05:06→23:49)
[2016-07-24] MEDS: BLOOD SUGAR DIAGNOSTIC 1 EACH STRIP VI SCH ×4 (05:06→23:54)
[2016-07-24] MEDS: NUTRISOURCE FIBER 4 GM PACKET GT SCH ×3 (05:06→22:01)
[2016-07-24] MEDS: INSULIN REGULAR, HUMAN 300 UNIT/3 ML VIAL SQ PRN ×4 (05:07→23:59)
[2016-07-24 08:00] VITALS: BP 106/55
[2016-07-24] MEDS: ACIDOPHILUS/BULGARICUS CHEW TAB GT SCH ×2 (08:08→21:43)
[2016-07-24] MEDS: LEVETIRACETAM 500 MG/5 ML LIQUID UDC GT SCH ×2 (08:09→21:43)
[2016-07-24] MEDS: NYSTATIN CREAM 30 GM TUBE TP SCH ×2 (08:10→21:44)
[2016-07-24] MEDS: FUROSEMIDE 40 MG/4 ML GT SCH (08:10)
[2016-07-24] MEDS: TRIAMCINOLONE ACET 0.1% CREAM 15 GM TUBE TP SCH ×2 (08:10→21:44)
[2016-07-24] MEDS: INSULIN NPH 1,000 UNITS/10 ML VIAL SQ SCH ×2 (08:10→21:00)
[2016-07-24] MEDS: COD LIVER OIL/ZINC OXIDE OINT 113 GM TUBE TOP SCH ×2 (08:10→21:44)
[2016-07-24] MEDS: PHENOBARBITAL GT SCH ×2 (08:10→21:43)
[2016-07-24] MEDS: FAMOTIDINE 20 MG TABLET GT SCH ×2 (08:10→21:43)
[2016-07-24] MEDS: HYDROGEN PEROXIDE 3% 118 ML BOTTLE TP SCH ×2 (08:10→21:44)
[2016-07-24] MEDS: NEOMY/BACITRA/POLYMYXIN B OINT UD PACKET TP SCH (08:12)
[2016-07-24] MEDS: POTASSIUM CHLORIDE 20 MEQ TAB.PRT.SR XX SCH ×2 (08:12→17:14)
[2016-07-24] MEDS: VITAMINS A AND D OINT TP SCH (08:12)
--- NOTE | 2016-07-24 11:00 | NUR ---
SEEN BY DYLAN COLLAZO,NO NEW ORDERS.
[2016-07-24] MEDS: DIABETICSOURCE AC 1000ML LIQUID GT PRN (17:46)
[2016-07-24 20:00] VITALS: BP 120/71
[2016-07-24] MEDS: [UNRECOGNIZED DRUG - OTHER] GT SCH (21:43)
[2016-07-24] MEDS: FISH OIL GT SCH (21:43)
[2016-07-24] MEDS: CALCIUM CARBONATE 500 MG TAB.CHEW GT SCH (21:44)
[2016-07-24] MEDS: INSULIN DETEMIR 300 UNIT/3 ML CARTRIDGE SQ SCH (22:00)
[2016-07-25] MEDS: BLOOD SUGAR DIAGNOSTIC 1 EACH STRIP VI SCH ×3 (05:11→17:03)
[2016-07-25] MEDS: BACLOFEN 10 MG TABLET GT SCH ×4 (05:11→23:44)
[2016-07-25] MEDS: NUTRISOURCE FIBER 4 GM PACKET GT SCH ×3 (05:11→22:01)
[2016-07-25] MEDS: INSULIN REGULAR, HUMAN 300 UNIT/3 ML VIAL SQ PRN ×2 (05:14→17:03)
--- NOTE | 2016-07-25 07:45 | NUR ---
Pt received in bed, lying semi-Huff's, obtunded - unable to communicate, withdraws to stimuli.. Pt trach: Surekhaley [address] / secure with tie, no sign of irritation noted around / under trach tie.. Trach site clean / dry at this time, stoma appears normal, no discoloration noted.. Continuous mechanical ventilation, vent: HT-50 w/settings: A/C 12, Vt 450, PEEP +5, FiO2 35%, tolerating well, no changes made to vent settings at this time.. Vent alarms checked, alarms are on/audible and functioning properly at this time.. BVM/back up trach at bedside.. No s/s of respiratory distress / S.O.B noted.. Will continue to monitor..
[2016-07-25] MEDS: LEVETIRACETAM 500 MG/5 ML LIQUID UDC GT SCH ×2 (08:31→21:48)
[2016-07-25] MEDS: ACIDOPHILUS/BULGARICUS CHEW TAB GT SCH ×2 (08:31→21:48)
[2016-07-25] MEDS: FAMOTIDINE 20 MG TABLET GT SCH ×2 (08:31→21:49)
[2016-07-25] MEDS: FUROSEMIDE 40 MG/4 ML GT SCH (08:31)
[2016-07-25] MEDS: PHENOBARBITAL GT SCH ×2 (08:31→21:49)
[2016-07-25] MEDS: COD LIVER OIL/ZINC OXIDE OINT 113 GM TUBE TOP SCH ×2 (08:32→21:00)
[2016-07-25] MEDS: INSULIN NPH 1,000 UNITS/10 ML VIAL SQ SCH ×2 (08:32→21:59)
[2016-07-25] MEDS: HYDROGEN PEROXIDE 3% 118 ML BOTTLE TP SCH ×2 (08:33→21:00)
[2016-07-25] MEDS: TRIAMCINOLONE ACET 0.1% CREAM 15 GM TUBE TP SCH ×2 (08:33→21:00)
[2016-07-25] MEDS: NYSTATIN CREAM 30 GM TUBE TP SCH ×2 (08:33→21:00)
[2016-07-25] MEDS: VITAMINS A AND D OINT TP SCH (08:33)
[2016-07-25] MEDS: NEOMY/BACITRA/POLYMYXIN B OINT UD PACKET TP SCH (08:33)
[2016-07-25] MEDS: POTASSIUM CHLORIDE 20 MEQ TAB.PRT.SR XX SCH ×2 (08:33→17:02)
[2016-07-25 10:26] VITALS: BP 109/58
--- NOTE | 2016-07-25 12:54 | NUR ---
SEEN BY HRASH FULLER.
--- NOTE | 2016-07-25 13:24 | NUR ---
SEEN Ben FULLER.
[2016-07-25 20:02] VITALS: BP 109/58
[2016-07-25] MEDS: [UNRECOGNIZED DRUG - OTHER] GT SCH (21:48)
[2016-07-25] MEDS: FISH OIL GT SCH (21:48)
[2016-07-25] MEDS: CALCIUM CARBONATE 500 MG TAB.CHEW GT SCH (21:50)
[2016-07-25] MEDS: INSULIN DETEMIR 300 UNIT/3 ML CARTRIDGE SQ SCH (21:58)
[2016-07-26] MEDS: BLOOD SUGAR DIAGNOSTIC 1 EACH STRIP VI SCH ×4 (00:17→17:13)
--- NOTE | 2016-07-26 00:20 | NUR ---
PT ON CONT HT 50 VENT WITH SHILEY # [address] AND SECURED, WITH SAME CURRENT VENT SETTINGS, WITH GOOD COUGH EFFORT,PT DOES ASSIST AT TIMES,VENT PLUGGED INTO RED SOCKET, PT STABLE AT THIS TIME ; CHECK CUFF, CHANGE HME, SUCTIONED LIGHT PALE YELL TINGE SECRETIONS, WITH NO VENT CHANGES MADE AT THIS TIME, ALL ALARMS OK, AMBU BAG AT BEDSIDE. Andi CHAKRABORTYP Addendum: 07/26/16 at 0024 by ETHEL FERGUSON RT Amended: Links added.
[2016-07-26] MEDS: INSULIN REGULAR, HUMAN 300 UNIT/3 ML VIAL SQ PRN ×4 (00:23→17:13)
[2016-07-26] MEDS: NUTRISOURCE FIBER 4 GM PACKET GT SCH ×3 (06:01→21:04)
[2016-07-26] MEDS: BACLOFEN 10 MG TABLET GT SCH ×3 (06:01→17:06)
[2016-07-26] MEDS: ACIDOPHILUS/BULGARICUS CHEW TAB GT SCH ×2 (08:20→21:01)
[2016-07-26] MEDS: PHENOBARBITAL GT SCH ×2 (08:20→21:01)
[2016-07-26] MEDS: FAMOTIDINE 20 MG TABLET GT SCH ×2 (08:20→21:01)
[2016-07-26] MEDS: LEVETIRACETAM 500 MG/5 ML LIQUID UDC GT SCH ×2 (08:20→21:01)
[2016-07-26] MEDS: FUROSEMIDE 40 MG/4 ML GT SCH (08:20)
[2016-07-26] MEDS: COD LIVER OIL/ZINC OXIDE OINT 113 GM TUBE TOP SCH ×2 (08:22→21:04)
[2016-07-26] MEDS: VITAMINS A AND D OINT TP SCH (08:22)
[2016-07-26] MEDS: NYSTATIN CREAM 30 GM TUBE TP SCH ×2 (08:22→21:04)
[2016-07-26] MEDS: NEOMY/BACITRA/POLYMYXIN B OINT UD PACKET TP SCH (08:22)
[2016-07-26] MEDS: HYDROGEN PEROXIDE 3% 118 ML BOTTLE TP SCH ×2 (08:22→21:04)
[2016-07-26] MEDS: INSULIN NPH 1,000 UNITS/10 ML VIAL SQ SCH ×2 (08:22→21:03)
[2016-07-26] MEDS: TRIAMCINOLONE ACET 0.1% CREAM 15 GM TUBE TP SCH ×2 (08:22→21:04)
[2016-07-26] MEDS: POTASSIUM CHLORIDE 20 MEQ TAB.PRT.SR XX SCH ×2 (08:22→17:06)
[2016-07-26 11:26] VITALS: BP 124/67
--- NOTE | 2016-07-26 15:19 | NUR ---
SEEN BY DR. ANIBAL FULLER.
--- NOTE | 2016-07-26 15:25 | NUR ---
As a follow-up to social media marketing analyst's conversation with patient's father on 07/17 (see SS note), SW called patient's father to check on his plans for visiting patient in order to obtain signatures on the annual admission forms. Patient's father stated that he would not be able to come in during the next week due to not feeling well. SW suggested that she can mail him the forms. Patient's father agreed. ESTEFANÍA put the packet of the annual admission forms in the mail today, with instructions on how to review and sign the forms. The packet was mailed to patient's father at [address] [place] [address]
--- NOTE | 2016-07-26 19:25 | NUR ---
Pt received in semi diaz position, has limited response to verbal stimuli, and is on Continuous mechanical ventilation via trach. Trach is a Shiley 8. Trach is patent and secure. No irritation or redness noted around stoma or trach tie. Pt is on [place] HT-50 vent with settings of A/C-12, VT-450, FIO2-35%. Tolerating vent settings well. SpO2-98%. HME changed. PPE used. Vent alarm parameters checked, on and audible. Vent plugged into red emergency outlet. Bag/valve/mask and back up trach bedside. Addendum: 07/29/16 at 1725 by ANTON HORVATH RT Wrong size entered accidentally. Actual size is Shiley 6
[2016-07-26 20:40] VITALS: BP_SYST 100; BP_SYST 108; BP_DIAS 47; BP_DIAS 61
[2016-07-26] MEDS: CALCIUM CARBONATE 500 MG TAB.CHEW GT SCH (21:01)
[2016-07-26] MEDS: [UNRECOGNIZED DRUG - OTHER] GT SCH (21:01)
[2016-07-26] MEDS: FISH OIL GT SCH (21:01)
[2016-07-26] MEDS: INSULIN DETEMIR 300 UNIT/3 ML CARTRIDGE SQ SCH (21:02)
[2016-07-27] MEDS: BACLOFEN 10 MG TABLET GT SCH ×4 (00:20→17:23)
[2016-07-27] MEDS: BLOOD SUGAR DIAGNOSTIC 1 EACH STRIP VI SCH ×4 (00:22→17:23)
[2016-07-27] MEDS: INSULIN REGULAR, HUMAN 300 UNIT/3 ML VIAL SQ PRN ×4 (00:23→17:24)
[2016-07-27] MEDS: NUTRISOURCE FIBER 4 GM PACKET GT SCH ×3 (05:45→21:34)
--- NOTE | 2016-07-27 07:39 | NUR ---
PT RECEIVED ON HT-50 VENT. CURRENT VENT SETTINGS ARE A/C 12, VT 450, PEEP +5, FIO2 35%. PT TOLERATING VENT SETTINGS WITH NO ISSUES NOTED AT THIS TIME. TRACH IS PATENT AND SECURED WITH TRACH TIES. HME CHANGED. PT TOLERATING SUCTION WITH NO ISSUES. ALARMS CHECKED, ARE ON AND AUDIBLE. AMBU BAG AND BACK UP TRACH ARE AT BEDSIDE. VENT PLUGGED INTO RED OUTLET. WILL CONTINUE TO MONITOR PT.
[2016-07-27] MEDS: ACIDOPHILUS/BULGARICUS CHEW TAB GT SCH ×2 (08:52→21:27)
[2016-07-27] MEDS: PHENOBARBITAL GT SCH ×2 (08:52→21:27)
[2016-07-27] MEDS: FAMOTIDINE 20 MG TABLET GT SCH ×2 (08:52→21:27)
[2016-07-27] MEDS: FUROSEMIDE 40 MG/4 ML GT SCH (08:52)
[2016-07-27] MEDS: LEVETIRACETAM 500 MG/5 ML LIQUID UDC GT SCH ×2 (08:52→21:27)
[2016-07-27] MEDS: POTASSIUM CHLORIDE 20 MEQ TAB.PRT.SR XX SCH ×2 (08:53→17:23)
[2016-07-27] MEDS: COD LIVER OIL/ZINC OXIDE OINT 113 GM TUBE TOP SCH ×2 (08:53→21:33)
[2016-07-27] MEDS: NYSTATIN CREAM 30 GM TUBE TP SCH (08:53)
[2016-07-27] MEDS: TRIAMCINOLONE ACET 0.1% CREAM 15 GM TUBE TP SCH ×2 (08:53→21:34)
[2016-07-27] MEDS: INSULIN NPH 1,000 UNITS/10 ML VIAL SQ SCH ×2 (08:53→21:29)
[2016-07-27] MEDS: HYDROGEN PEROXIDE 3% 118 ML BOTTLE TP SCH ×2 (08:53→21:34)
[2016-07-27] MEDS: VITAMINS A AND D OINT TP SCH (08:53)
[2016-07-27] MEDS: NEOMY/BACITRA/POLYMYXIN B OINT UD PACKET TP SCH (08:53)
[2016-07-27 11:59] VITALS: BP 92/54
[2016-07-27 20:00] VITALS: BP 100/68
--- NOTE | 2016-07-27 20:00 | NUR ---
Pt received in semi diaz position, has limited response to verbal stimuli, and is on Continuous mechanical ventilation via trach. Pt is on [place] HT-50 vent with settings of A/C-12, VT-450, FIO2-35%. Trach is a [employer] 8. Trach is patent and secure. No irritation or redness noted around stoma or trach tie. Tolerating vent settings well. SpO2-97%. HME changed. PPE used. Vent alarm parameters checked, on and audible. Vent plugged into red emergency outlet. Bag/valve/mask and back up trach bedside. Addendum: 07/29/16 at 1725 by ANTON HORVATH RT Wrong size entered accidentally. Actual size is Shiley 6
[2016-07-27] MEDS: [UNRECOGNIZED DRUG - OTHER] GT SCH (21:27)
[2016-07-27] MEDS: FISH OIL GT SCH (21:27)
[2016-07-27] MEDS: CALCIUM CARBONATE 500 MG TAB.CHEW GT SCH (21:28)
[2016-07-27] MEDS: INSULIN DETEMIR 300 UNIT/3 ML CARTRIDGE SQ SCH (21:29)
[2016-07-28] MEDS: BLOOD SUGAR DIAGNOSTIC 1 EACH STRIP VI SCH ×4 (00:44→18:22)
[2016-07-28] MEDS: BACLOFEN 10 MG TABLET GT SCH ×4 (00:44→17:20)
[2016-07-28] MEDS: INSULIN REGULAR, HUMAN 300 UNIT/3 ML VIAL SQ PRN ×4 (00:45→18:27)
[2016-07-28] MEDS: NUTRISOURCE FIBER 4 GM PACKET GT SCH ×3 (05:39→21:33)
[2016-07-28 08:00] VITALS: BP 126/60
[2016-07-28] MEDS: INSULIN NPH 1,000 UNITS/10 ML VIAL SQ SCH ×2 (08:43→21:37)
[2016-07-28] MEDS: ACIDOPHILUS/BULGARICUS CHEW TAB GT SCH ×2 (08:44→21:32)
[2016-07-28] MEDS: LEVETIRACETAM 500 MG/5 ML LIQUID UDC GT SCH ×2 (08:45→21:32)
[2016-07-28] MEDS: FUROSEMIDE 40 MG/4 ML GT SCH (08:45)
[2016-07-28] MEDS: FAMOTIDINE 20 MG TABLET GT SCH ×2 (08:46→21:32)
[2016-07-28] MEDS: COD LIVER OIL/ZINC OXIDE OINT 113 GM TUBE TOP SCH ×2 (08:46→21:32)
[2016-07-28] MEDS: PHENOBARBITAL GT SCH ×2 (08:46→21:32)
[2016-07-28] MEDS: NEOMY/BACITRA/POLYMYXIN B OINT UD PACKET TP SCH (08:48)
[2016-07-28] MEDS: HYDROGEN PEROXIDE 3% 118 ML BOTTLE TP SCH ×2 (08:48→21:33)
[2016-07-28] MEDS: POTASSIUM CHLORIDE 20 MEQ TAB.PRT.SR XX SCH ×2 (08:48→17:20)
[2016-07-28] MEDS: TRIAMCINOLONE ACET 0.1% CREAM 15 GM TUBE TP SCH ×2 (08:48→21:33)
[2016-07-28] MEDS: VITAMINS A AND D OINT TP SCH (08:48)
[2016-07-28] MEDS: DIABETICSOURCE AC 1000ML LIQUID GT PRN (08:49)
--- NOTE | 2016-07-28 18:52 | NUR ---
Seen by Dr. Gilbert with no new order.
[2016-07-28] MEDS: FISH OIL GT SCH (21:32)
[2016-07-28] MEDS: [UNRECOGNIZED DRUG - OTHER] GT SCH (21:32)
[2016-07-28] MEDS: CALCIUM CARBONATE 500 MG TAB.CHEW GT SCH (21:32)
[2016-07-28] MEDS: INSULIN DETEMIR 300 UNIT/3 ML CARTRIDGE SQ SCH (21:36)
--- NOTE | 2016-07-28 21:53 | NUR ---
PT ON CONT HT 50 VENT WITH SHILEY TRACH IN PLACE AND SECURED, WITH SAME CURRENT VENT SETTINGS, WITH GOOD COUGH EFFORT, SUCTIONED LIGHT PALE YELL TINGE SECRETIONS, PT DOES ASSIST AT TIMES, SUCTION MOUTH WITH KARINA HALEY, CHANGE HME, AND CHECK CUFF; NO VENT CHANGES MADE AT THIS TIME, ALL ALARMS OK, AMBU BAG AT BEDSIDE, PT STABLE AT THIS TIME.Andi CHAKRABORTYP Addendum: 07/28/16 at 2155 by ETHEL FERGUSON RT Amended: Links added.
[2016-07-28 23:08] VITALS: BP 112/69
[2016-07-29] MEDS: BACLOFEN 10 MG TABLET GT SCH ×5 (00:11→23:31)
[2016-07-29] MEDS: BLOOD SUGAR DIAGNOSTIC 1 EACH STRIP VI SCH ×5 (00:11→23:32)
[2016-07-29] MEDS: INSULIN REGULAR, HUMAN 300 UNIT/3 ML VIAL SQ PRN ×5 (00:37→23:34)
[2016-07-29] MEDS: NUTRISOURCE FIBER 4 GM PACKET GT SCH ×3 (06:17→21:09)
--- NOTE | 2016-07-29 07:00 | NUR ---
Pt received in semi diaz position, has limited response to verbal stimuli, and is on Continuous mechanical ventilation via trach. Pt is on [place] HT-50 vent with settings of A/C-12, VT-450, FIO2-35%. Trach is a [employer] 6 DCT. Trach is patent and secure. No irritation or redness noted around stoma or trach tie. Tolerating vent settings well. SpO2-98%. HME changed. PPE used. Vent alarm parameters checked, on and audible. Vent plugged into red emergency outlet. Bag/valve/mask and back up trach bedside.
[2016-07-29 08:00] VITALS: BP 108/56
[2016-07-29] MEDS: INSULIN NPH 1,000 UNITS/10 ML VIAL SQ SCH ×2 (08:25→21:09)
[2016-07-29] MEDS: FAMOTIDINE 20 MG TABLET GT SCH ×2 (08:26→20:57)
[2016-07-29] MEDS: HYDROGEN PEROXIDE 3% 118 ML BOTTLE TP SCH ×2 (08:26→21:09)
[2016-07-29] MEDS: LEVETIRACETAM 500 MG/5 ML LIQUID UDC GT SCH ×2 (08:26→20:56)
[2016-07-29] MEDS: FUROSEMIDE 40 MG/4 ML GT SCH (08:26)
[2016-07-29] MEDS: PHENOBARBITAL GT SCH ×2 (08:26→20:57)
[2016-07-29] MEDS: COD LIVER OIL/ZINC OXIDE OINT 113 GM TUBE TOP SCH ×2 (08:26→21:09)
[2016-07-29] MEDS: ACIDOPHILUS/BULGARICUS CHEW TAB GT SCH ×2 (08:26→20:56)
[2016-07-29] MEDS: DIABETICSOURCE AC 1000ML LIQUID GT PRN (08:28)
[2016-07-29] MEDS: TRIAMCINOLONE ACET 0.1% CREAM 15 GM TUBE TP SCH ×2 (08:28→21:09)
[2016-07-29] MEDS: VITAMINS A AND D OINT TP SCH (08:28)
[2016-07-29] MEDS: POTASSIUM CHLORIDE 20 MEQ TAB.PRT.SR XX SCH ×2 (08:28→17:20)
[2016-07-29] MEDS: NEOMY/BACITRA/POLYMYXIN B OINT UD PACKET TP SCH (08:28)
--- NOTE | 2016-07-29 11:40 | NUR ---
Trach changed with Trach of same size and type. Aleisha 6DCT. Cuff inflated using Minimal leak technique. No complications. Trach is patent and secure. Gauze changed. Stoma appears dry and normal. No bleeding noted. SpO2-98%.
[2016-07-29] MEDS: [UNRECOGNIZED DRUG - OTHER] GT SCH (20:56)
[2016-07-29] MEDS: FISH OIL GT SCH (20:56)
[2016-07-29] MEDS: CALCIUM CARBONATE 500 MG TAB.CHEW GT SCH (20:57)
[2016-07-29] MEDS: INSULIN DETEMIR 300 UNIT/3 ML CARTRIDGE SQ SCH (21:07)
[2016-07-29 23:01] VITALS: BP 103/60
--- NOTE | 2016-07-30 01:49 | NUR ---
PT ON CONT HT 50 VENT WITH SHILEY # [address] AND SECURED, WITH SAME CURRENT VENT SETTINGS, PT DOES ASSIST AT TIMES, WITH GOOD COUGH EFFORT, SUCTIONED LIGHT PALE YELL TINGE SECRETIONS, CHECK CUFF, CHANGE HME AND PASCUAL, ALL ALARMS OK, AMBU BAG AT BEDSIDE, NO VENT CHANGES MADE AT THIS TIME, PT STABLE . Andi CHAKRABORTYP Addendum: 07/30/16 at 0151 by ETHEL FERGUSON RT Amended: Links added.
[2016-07-30] MEDS: BACLOFEN 10 MG TABLET GT SCH ×4 (05:09→23:31)
[2016-07-30] MEDS: BLOOD SUGAR DIAGNOSTIC 1 EACH STRIP VI SCH ×4 (05:09→23:31)
[2016-07-30] MEDS: NUTRISOURCE FIBER 4 GM PACKET GT SCH ×3 (05:09→21:18)
[2016-07-30] MEDS: INSULIN REGULAR, HUMAN 300 UNIT/3 ML VIAL SQ PRN ×4 (05:10→23:34)
[2016-07-30 08:00] VITALS: BP 119/65
--- NOTE | 2016-07-30 08:04 | NUR ---
RECEIVED PATIENT ON THE HT-50 VENTILATOR WITH THE FOLLOWING SETTINGS: AC 12, VT 450, PEEP +5, 35% FIO2. TRACH IS PATENT AND PROPERLY SECURED WITH TRACH TIES. SUCTIONED PATIENT. SUCTIONED SMALL AMOUNT OF THICK YELLOW SECRETIONS. HME CHANGED. VENTILATOR CHECKED. ALARMS ARE ON AND AUDIBLE. VENTILATOR IS PLUGGED INTO THE RED EMERGENCY OUTLET. BMV AND BACK UP TRACH IS AT BEDSIDE. PATIENT IS TOLERATING VENTILATOR SETTINGS WELL. NO RESPIRATORY DISTRESS NOTED AT THIS TIME. WILL CONTINUE TO MONITOR PATIENT THROUGHOUT SHIFT.
[2016-07-30] MEDS: ACIDOPHILUS/BULGARICUS CHEW TAB GT SCH ×2 (09:38→21:17)
[2016-07-30] MEDS: LEVETIRACETAM 500 MG/5 ML LIQUID UDC GT SCH ×2 (09:38→21:17)
[2016-07-30] MEDS: INSULIN NPH 1,000 UNITS/10 ML VIAL SQ SCH ×2 (09:42→21:16)
[2016-07-30] MEDS: FUROSEMIDE 40 MG/4 ML GT SCH (09:44)
[2016-07-30] MEDS: FAMOTIDINE 20 MG TABLET GT SCH ×2 (09:44→21:17)
[2016-07-30] MEDS: PHENOBARBITAL GT SCH ×2 (09:44→21:17)
[2016-07-30] MEDS: TRIAMCINOLONE ACET 0.1% CREAM 15 GM TUBE TP SCH ×2 (09:46→21:18)
[2016-07-30] MEDS: HYDROGEN PEROXIDE 3% 118 ML BOTTLE TP SCH ×2 (09:46→21:18)
[2016-07-30] MEDS: COD LIVER OIL/ZINC OXIDE OINT 113 GM TUBE TOP SCH ×2 (09:46→21:18)
[2016-07-30] MEDS: POTASSIUM CHLORIDE 20 MEQ TAB.PRT.SR XX SCH ×2 (09:46→17:25)
[2016-07-30] MEDS: VITAMINS A AND D OINT TP SCH (09:46)
[2016-07-30] MEDS: NEOMY/BACITRA/POLYMYXIN B OINT UD PACKET TP SCH (09:46)
--- NOTE | 2016-07-30 19:50 | NUR ---
Pt received in semi diaz position, has limited response to verbal stimuli, and is on Continuous mechanical ventilation via trach. Pt is on [place] HT-50 vent with settings of A/C-12, VT-450, FIO2-35%, PEEP +5. Trach is a Shiley 6 DCT. Trach is patent and secure. No irritation or redness noted around stoma or trach tie. Tolerating vent settings well. SpO2-97%. HME changed. PPE used. Vent alarm parameters checked, on and audible. Vent plugged into red emergency outlet. Bag/valve/mask and back up trach bedside.
[2016-07-30] MEDS: INSULIN DETEMIR 300 UNIT/3 ML CARTRIDGE SQ SCH (21:16)
[2016-07-30] MEDS: [UNRECOGNIZED DRUG - OTHER] GT SCH (21:17)
[2016-07-30] MEDS: FISH OIL GT SCH (21:17)
[2016-07-30] MEDS: CALCIUM CARBONATE 500 MG TAB.CHEW GT SCH (21:18)
[2016-07-30 23:36] VITALS: BP 98/64
[2016-07-31] MEDS: BACLOFEN 10 MG TABLET GT SCH ×4 (05:26→23:44)
[2016-07-31] MEDS: NUTRISOURCE FIBER 4 GM PACKET GT SCH ×3 (05:26→22:00)
[2016-07-31] MEDS: BLOOD SUGAR DIAGNOSTIC 1 EACH STRIP VI SCH ×4 (05:27→23:48)
[2016-07-31] MEDS: INSULIN REGULAR, HUMAN 300 UNIT/3 ML VIAL SQ PRN ×4 (05:28→23:52)
[2016-07-31 08:00] VITALS: BP 112/64
[2016-07-31] MEDS: LEVETIRACETAM 500 MG/5 ML LIQUID UDC GT SCH ×2 (08:53→20:24)
[2016-07-31] MEDS: ACIDOPHILUS/BULGARICUS CHEW TAB GT SCH ×2 (08:53→20:24)
[2016-07-31] MEDS: FUROSEMIDE 40 MG/4 ML GT SCH (08:56)
--- NOTE | 2016-07-31 08:56 | NUR ---
PATIENT RECEIVED ON HT-50 VENT W/ THE FOLLOWING SETTINGS THAT ARE CHARTED. SUCTIONED SMALL AMOUNT OF THICK YELLOW SECRETIONS. AIRWAY IS PATENT. TRACH IS PROPERLY SECURED. HME CHANGED. VENT CHECKED. ALARMS CHECKED AND THEY ARE ON AUDIBLE. BACK-UP TRACH AND AMBU BAG IS AT BEDSIDE. VENT IS PLUGGED INTO RED OUTLET. PATIENT IS TOLERATING VENT SETTINGS WELL WITH NO SOB NOTED. WILL CONTINUE TO MONITOR.
[2016-07-31] MEDS: PHENOBARBITAL GT SCH ×2 (08:57→20:24)
[2016-07-31] MEDS: FAMOTIDINE 20 MG TABLET GT SCH ×2 (08:57→20:24)
[2016-07-31] MEDS: INSULIN NPH 1,000 UNITS/10 ML VIAL SQ SCH ×2 (09:02→22:00)
[2016-07-31] MEDS: HYDROGEN PEROXIDE 3% 118 ML BOTTLE TP SCH ×2 (09:05→20:25)
[2016-07-31] MEDS: COD LIVER OIL/ZINC OXIDE OINT 113 GM TUBE TOP SCH ×2 (09:05→20:25)
[2016-07-31] MEDS: TRIAMCINOLONE ACET 0.1% CREAM 15 GM TUBE TP SCH ×2 (09:05→20:26)
[2016-07-31] MEDS: NEOMY/BACITRA/POLYMYXIN B OINT UD PACKET TP SCH (09:06)
[2016-07-31] MEDS: POTASSIUM CHLORIDE 20 MEQ TAB.PRT.SR XX SCH ×2 (09:07→17:07)
[2016-07-31] MEDS: VITAMINS A AND D OINT TP SCH (09:07)
--- NOTE | 2016-07-31 12:35 | NUR ---
Seen by Mireya COLLAZO and Kasey COLLAZO with no new order.
--- NOTE | 2016-07-31 14:18 | NUR ---
Patient seen today by dentist Dr. Lowry for her annual dental exam. See dental notes for details.
--- NOTE | 2016-07-31 16:23 | NUR ---
Patient's brother Phong delivered the annual admission paperwork to today, after patient's father/conservator Mr. Zhou had reviewed and signed them. The following forms were reviewed and signed by Mr. Zhou: 1) [place] Standard Admission Agreement ([facility] contract) 2) Conditions of Agreement 3) An Important Message From Medicare about your Rights 4) Patient's Rights Acknowledgement 5) Voluntary Prior Express Consent Form 6) Documentation of Preferred Intensity of Care Copies of the forms provided to Mr. Zhou. See patients last chart #[id number] for assessment information. Also see patient's previous charts for past assessments and psychosocial information.
[2016-07-31] MEDS: [UNRECOGNIZED DRUG - OTHER] GT SCH (20:24)
[2016-07-31] MEDS: FISH OIL GT SCH (20:24)
[2016-07-31] MEDS: CALCIUM CARBONATE 500 MG TAB.CHEW GT SCH (20:24)
[2016-07-31] MEDS: INSULIN DETEMIR 300 UNIT/3 ML CARTRIDGE SQ SCH (21:59)
[2016-07-31 22:39] VITALS: BP 105/59
[2016-08-01] MEDS: NUTRISOURCE FIBER 4 GM PACKET GT SCH ×3 (06:18→22:10)
[2016-08-01] MEDS: BLOOD SUGAR DIAGNOSTIC 1 EACH STRIP VI SCH ×4 (06:18→23:38)
[2016-08-01] MEDS: BACLOFEN 10 MG TABLET GT SCH ×4 (06:18→23:37)
[2016-08-01] MEDS: INSULIN REGULAR, HUMAN 300 UNIT/3 ML VIAL SQ PRN ×4 (06:20→23:39)
[2016-08-01 08:00] VITALS: BP 109/62
[2016-08-01] MEDS: LEVETIRACETAM 500 MG/5 ML LIQUID UDC GT SCH ×2 (08:56→21:00)
[2016-08-01] MEDS: ACIDOPHILUS/BULGARICUS CHEW TAB GT SCH ×2 (08:56→21:00)
[2016-08-01] MEDS: FUROSEMIDE 40 MG/4 ML GT SCH (08:56)
[2016-08-01] MEDS: COD LIVER OIL/ZINC OXIDE OINT 113 GM TUBE TOP SCH ×2 (08:58→21:00)
[2016-08-01] MEDS: TRIAMCINOLONE ACET 0.1% CREAM 15 GM TUBE TP SCH ×2 (08:58→21:00)
[2016-08-01] MEDS: HYDROGEN PEROXIDE 3% 118 ML BOTTLE TP SCH ×2 (08:58→21:00)
[2016-08-01] MEDS: PHENOBARBITAL GT SCH ×2 (08:58→21:00)
[2016-08-01] MEDS: POTASSIUM CHLORIDE 20 MEQ TAB.PRT.SR XX SCH ×2 (08:58→17:02)
[2016-08-01] MEDS: VITAMINS A AND D OINT TP SCH (08:58)
[2016-08-01] MEDS: FAMOTIDINE 20 MG TABLET GT SCH ×2 (08:58→21:00)
[2016-08-01] MEDS: INSULIN NPH 1,000 UNITS/10 ML VIAL SQ SCH ×2 (09:02→21:00)
--- NOTE | 2016-08-01 12:15 | NUR ---
SEEN BY HARSH FULLER.
--- NOTE | 2016-08-01 13:52 | NUR ---
SEEN BY DENISE FULLER.
--- NOTE | 2016-08-01 15:44 | NUR ---
PT RECEIVED ON HT-50 VENT, SETTINGS ARE AC 12, Vt 450, +5, 35% FIO2. PT TOLERATING VENT SETTINGS WELL WITH NO SOB NOTED. SHILEY 6 TRACH IS PATENT AND SECURED WITH TIES. SUCTIONED MODERATE AMOUNT OF PALE YELLOW THICK SECRETIONS. HME CHANGED, BVM AND BACK UP TRACH AT BEDSIDE. ALARMS ARE AND AUDIBLE, WILL CONTINUE TO MONITOR.
--- NOTE | 2016-08-01 19:56 | NUR ---
Received pt on HT-50 vent with the following settings of AC-12, Vt-450, PEEP+5, FIO2-35%, trached with Shiley#6 DCT trach, which is in the place and secure. No respiratory distress noted. Airway care done, pt responded to physical stimuli. Resus. bag and back up trach at bedside. Vent and alarms on and audible.
[2016-08-01 20:06] VITALS: BP 110/63
[2016-08-01] MEDS: INSULIN DETEMIR 300 UNIT/3 ML CARTRIDGE SQ SCH (21:00)
[2016-08-01] MEDS: CALCIUM CARBONATE 500 MG TAB.CHEW GT SCH (21:00)
[2016-08-01] MEDS: [UNRECOGNIZED DRUG - OTHER] GT SCH (21:00)
[2016-08-01] MEDS: FISH OIL GT SCH (21:00)
[2016-08-02] MEDS: NUTRISOURCE FIBER 4 GM PACKET GT SCH ×3 (05:19→21:10)
[2016-08-02] MEDS: BACLOFEN 10 MG TABLET GT SCH ×4 (05:19→23:10)
[2016-08-02] MEDS: BLOOD SUGAR DIAGNOSTIC 1 EACH STRIP VI SCH ×3 (05:20→17:18)
[2016-08-02] MEDS: INSULIN REGULAR, HUMAN 300 UNIT/3 ML VIAL SQ PRN ×3 (05:21→17:21)
[2016-08-02 08:00] VITALS: BP 104/60
[2016-08-02] MEDS: INSULIN NPH 1,000 UNITS/10 ML VIAL SQ SCH ×2 (08:36→21:11)
[2016-08-02] MEDS: PHENOBARBITAL GT SCH ×2 (08:44→21:09)
[2016-08-02] MEDS: LEVETIRACETAM 500 MG/5 ML LIQUID UDC GT SCH ×2 (08:44→21:09)
[2016-08-02] MEDS: FUROSEMIDE 40 MG/4 ML GT SCH (08:44)
[2016-08-02] MEDS: ACIDOPHILUS/BULGARICUS CHEW TAB GT SCH ×2 (08:44→21:09)
[2016-08-02] MEDS: FAMOTIDINE 20 MG TABLET GT SCH ×2 (08:45→21:09)
[2016-08-02] MEDS: POTASSIUM CHLORIDE 20 MEQ TAB.PRT.SR XX SCH ×2 (08:45→17:18)
[2016-08-02] MEDS: HYDROGEN PEROXIDE 3% 118 ML BOTTLE TP SCH ×2 (08:45→21:10)
[2016-08-02] MEDS: COD LIVER OIL/ZINC OXIDE OINT 113 GM TUBE TOP SCH ×2 (08:45→21:10)
[2016-08-02] MEDS: TRIAMCINOLONE ACET 0.1% CREAM 15 GM TUBE TP SCH ×2 (08:45→21:10)
[2016-08-02] MEDS: VITAMINS A AND D OINT TP SCH (08:45)
[2016-08-02] MEDS: DIABETICSOURCE AC 1000ML LIQUID GT PRN (17:18)
--- NOTE | 2016-08-02 19:00 | NUR ---
Pt received in semi diaz position, has limited response to verbal stimuli, and is on Continuous mechanical ventilation via trach. Pt is on Taurus HT-50 vent with settings of A/C-12, VT-450, FIO2-35%, PEEP +5. Trach is a Shiley 6 DCT. Trach is patent and secure. No irritation or redness noted around stoma or trach tie. Tolerating vent settings well. SpO2-96%. HME changed. PPE used. Vent alarm parameters checked, on and audible. Vent plugged into red emergency outlet. Bag/valve/mask and back up trach bedside.
[2016-08-02] MEDS: CALCIUM CARBONATE 500 MG TAB.CHEW GT SCH (21:09)
[2016-08-02] MEDS: FISH OIL GT SCH (21:09)
[2016-08-02] MEDS: [UNRECOGNIZED DRUG - OTHER] GT SCH (21:09)
[2016-08-02] MEDS: INSULIN DETEMIR 300 UNIT/3 ML CARTRIDGE SQ SCH (21:10)
[2016-08-02 22:23] VITALS: BP 113/65
[2016-08-03] MEDS: INSULIN REGULAR, HUMAN 300 UNIT/3 ML VIAL SQ PRN ×5 (01:05→23:29)
[2016-08-03] MEDS: NUTRISOURCE FIBER 4 GM PACKET GT SCH ×3 (05:32→22:07)
[2016-08-03] MEDS: BLOOD SUGAR DIAGNOSTIC 1 EACH STRIP VI SCH ×5 (05:32→23:26)
[2016-08-03] MEDS: BACLOFEN 10 MG TABLET GT SCH ×4 (05:32→23:26)
[2016-08-03 08:00] VITALS: BP 119/67
[2016-08-03] MEDS: LEVETIRACETAM 500 MG/5 ML LIQUID UDC GT SCH ×2 (08:37→20:23)
[2016-08-03] MEDS: ACIDOPHILUS/BULGARICUS CHEW TAB GT SCH ×2 (08:37→20:22)
[2016-08-03] MEDS: COD LIVER OIL/ZINC OXIDE OINT 113 GM TUBE TOP SCH ×2 (08:38→20:24)
[2016-08-03] MEDS: HYDROGEN PEROXIDE 3% 118 ML BOTTLE TP SCH ×2 (08:38→20:24)
[2016-08-03] MEDS: PHENOBARBITAL GT SCH ×2 (08:38→20:23)
[2016-08-03] MEDS: VITAMINS A AND D OINT TP SCH (08:38)
[2016-08-03] MEDS: TRIAMCINOLONE ACET 0.1% CREAM 15 GM TUBE TP SCH ×2 (08:38→20:25)
[2016-08-03] MEDS: FAMOTIDINE 20 MG TABLET GT SCH ×2 (08:38→20:23)
[2016-08-03] MEDS: FUROSEMIDE 40 MG/4 ML GT SCH (08:38)
[2016-08-03] MEDS: POTASSIUM CHLORIDE 20 MEQ TAB.PRT.SR XX SCH ×2 (08:39→16:47)
[2016-08-03] MEDS: INSULIN NPH 1,000 UNITS/10 ML VIAL SQ SCH ×2 (08:42→20:29)
--- NOTE | 2016-08-03 09:45 | NUR ---
Patient scheduled for her annual eye exam on 08/08/[address] Mejia ([phone]). Patient's father notified and was in agreement.
--- NOTE | 2016-08-03 17:04 | NUR ---
seen and examined by Dr Jorgensen ,no new orders noted.
[2016-08-03] MEDS: DIABETICSOURCE AC 1000ML LIQUID GT PRN (17:09)
[2016-08-03] MEDS: [UNRECOGNIZED DRUG - OTHER] GT SCH (20:23)
[2016-08-03] MEDS: FISH OIL GT SCH (20:23)
[2016-08-03] MEDS: CALCIUM CARBONATE 500 MG TAB.CHEW GT SCH (20:24)
[2016-08-03] MEDS: INSULIN DETEMIR 300 UNIT/3 ML CARTRIDGE SQ SCH (20:28)
[2016-08-03 20:47] VITALS: BP 118/69
--- NOTE | 2016-08-04 02:46 | NUR ---
PT ON CONT HT 50 VENT WITH SHILEY # [address] AND SECURED, WITH SAME CURRENT VENT SETTINGS, PT DOES ASSIST AT TIMES, WITH GOOD COUGH EFFORT, CHECK CUFF, CHANGE HME, SUCTIONED LIGHT PALE YELL TINGE SECRETIONS, WITH NO VENT CHANGES MADE AT THIS TIME, Andi FERGUSON RCP Addendum: 08/04/16 at 0248 by ETHEL FERGUSON RT Amended: Links added.
[2016-08-04] MEDS: BACLOFEN 10 MG TABLET GT SCH ×3 (05:02→17:17)
[2016-08-04] MEDS: BLOOD SUGAR DIAGNOSTIC 1 EACH STRIP VI SCH ×3 (05:02→17:20)
[2016-08-04] MEDS: INSULIN REGULAR, HUMAN 300 UNIT/3 ML VIAL SQ PRN ×3 (05:02→17:21)
[2016-08-04] MEDS: NUTRISOURCE FIBER 4 GM PACKET GT SCH ×3 (05:02→21:01)
[2016-08-04 08:00] VITALS: BP 116/67
[2016-08-04] MEDS: FAMOTIDINE 20 MG TABLET GT SCH ×2 (08:04→20:59)
[2016-08-04] MEDS: ACIDOPHILUS/BULGARICUS CHEW TAB GT SCH ×2 (08:04→20:58)
[2016-08-04] MEDS: LEVETIRACETAM 500 MG/5 ML LIQUID UDC GT SCH ×2 (08:04→20:58)
[2016-08-04] MEDS: FUROSEMIDE 40 MG/4 ML GT SCH (08:04)
[2016-08-04] MEDS: PHENOBARBITAL GT SCH ×2 (08:04→20:58)
[2016-08-04] MEDS: VITAMINS A AND D OINT TP SCH (08:05)
[2016-08-04] MEDS: POTASSIUM CHLORIDE 20 MEQ TAB.PRT.SR XX SCH ×2 (08:05→17:17)
[2016-08-04] MEDS: COD LIVER OIL/ZINC OXIDE OINT 113 GM TUBE TOP SCH ×2 (08:05→21:01)
[2016-08-04] MEDS: HYDROGEN PEROXIDE 3% 118 ML BOTTLE TP SCH ×2 (08:05→21:01)
[2016-08-04] MEDS: INSULIN NPH 1,000 UNITS/10 ML VIAL SQ SCH ×2 (08:07→21:12)
[2016-08-04] MEDS: DIABETICSOURCE AC 1000ML LIQUID GT PRN (17:17)
--- NOTE | 2016-08-04 19:00 | NUR ---
SEEN AND EXAMINED BY DR HICKMAN,NO NEW ORDERS.
--- NOTE | 2016-08-04 20:12 | NUR ---
RECEIVED ON HT-50 VENT WITH SETTINGS: A/C 12, VT 450, PEEP +5, FIO2 35%. PT SEEMS COMFORTABLE ON CURRENT VENT SETTINGS WITH NO ISSUES NOTED AT THIS TIME. SH. #6DCT TRACH IS PATENT AND SECURED WITH TRACH TIES. PT IS TOLERATING SUCTION WITH NO ISSUES NOTED. HME CHANGED. ALARM PARAMETERS CHECKED. ALARMS ARE ON AND AUDIBLE. BMV AND BACK UP TRACH ARE AT BEDSIDE. VENT PLUGGED INTO RED OUTLET PLUG. WILL CONTINUE TO MONITOR PT THROUGHOUT SHIFT.
[2016-08-04] MEDS: [UNRECOGNIZED DRUG - OTHER] GT SCH (20:58)
[2016-08-04] MEDS: FISH OIL GT SCH (20:58)
[2016-08-04] MEDS: CALCIUM CARBONATE 500 MG TAB.CHEW GT SCH (21:00)
[2016-08-04] MEDS: INSULIN DETEMIR 300 UNIT/3 ML CARTRIDGE SQ SCH (21:11)
[2016-08-04 23:14] VITALS: BP 118/64
[2016-08-05] MEDS: BACLOFEN 10 MG TABLET GT SCH ×4 (00:13→17:43)
[2016-08-05] MEDS: BLOOD SUGAR DIAGNOSTIC 1 EACH STRIP VI SCH ×4 (00:16→17:44)
[2016-08-05] MEDS: INSULIN REGULAR, HUMAN 300 UNIT/3 ML VIAL SQ PRN ×4 (00:16→17:49)
[2016-08-05] MEDS: NUTRISOURCE FIBER 4 GM PACKET GT SCH ×3 (05:30→21:04)
[2016-08-05 08:00] VITALS: BP 116/63
--- NOTE | 2016-08-05 08:39 | NUR ---
PT RECEIVED ON CMV WITH TRACH SECURED AND INTACT. AIRWAY PATENT. PT TOLERATING CURRENT VENT SETTINGS FINE WITH NO DISTRESS. VENT ALARMS SET AND AUDIBLE.
[2016-08-05] MEDS: ACIDOPHILUS/BULGARICUS CHEW TAB GT SCH ×2 (09:51→21:01)
[2016-08-05] MEDS: LEVETIRACETAM 500 MG/5 ML LIQUID UDC GT SCH ×2 (09:51→21:01)
[2016-08-05] MEDS: FUROSEMIDE 40 MG/4 ML GT SCH (09:53)
[2016-08-05] MEDS: FAMOTIDINE 20 MG TABLET GT SCH ×2 (09:54→21:02)
[2016-08-05] MEDS: PHENOBARBITAL GT SCH ×2 (09:54→21:02)
[2016-08-05] MEDS: HYDROGEN PEROXIDE 3% 118 ML BOTTLE TP SCH ×2 (09:55→21:04)
[2016-08-05] MEDS: POTASSIUM CHLORIDE 20 MEQ TAB.PRT.SR XX SCH ×2 (09:55→17:43)
[2016-08-05] MEDS: COD LIVER OIL/ZINC OXIDE OINT 113 GM TUBE TOP SCH ×2 (09:55→21:04)
[2016-08-05] MEDS: VITAMINS A AND D OINT TP SCH (09:55)
[2016-08-05] MEDS: INSULIN NPH 1,000 UNITS/10 ML VIAL SQ SCH ×2 (09:57→21:46)
--- NOTE | 2016-08-05 19:50 | NUR ---
Pt received in semi diaz position, has limited response to verbal stimuli, and is on Continuous mechanical ventilation via trach. Pt is on Taurus HT-50 vent with settings of A/C-12, VT-450, FIO2-35%, PEEP +5. Trach is a Shiley 6 DCT. Trach is patent and secure. No irritation or redness noted around stoma or trach tie. Tolerating vent settings well. SpO2-98%. HME and in-line suction catheter changed. PPE used. Vent alarm parameters checked, on and audible. Vent plugged into red emergency outlet. Bag/valve/mask and back up trach bedside.
[2016-08-05] MEDS: FISH OIL GT SCH (21:01)
[2016-08-05] MEDS: [UNRECOGNIZED DRUG - OTHER] GT SCH (21:01)
[2016-08-05] MEDS: CALCIUM CARBONATE 500 MG TAB.CHEW GT SCH (21:02)
[2016-08-05] MEDS: INSULIN DETEMIR 300 UNIT/3 ML CARTRIDGE SQ SCH (21:44)
[2016-08-05 23:02] VITALS: BP 91/56
[2016-08-06] MEDS: INSULIN REGULAR, HUMAN 300 UNIT/3 ML VIAL SQ PRN ×4 (01:05→17:38)
[2016-08-06] MEDS: NUTRISOURCE FIBER 4 GM PACKET GT SCH ×3 (05:13→21:23)
[2016-08-06] MEDS: BACLOFEN 10 MG TABLET GT SCH ×4 (05:13→17:36)
[2016-08-06] MEDS: BLOOD SUGAR DIAGNOSTIC 1 EACH STRIP VI SCH ×4 (05:13→17:37)
[2016-08-06 08:00] VITALS: BP 99/50
--- NOTE | 2016-08-06 08:28 | NUR ---
RECEIVED PT ON THE HT-50 VENTILATOR W/ THE FOLLOWING SETTINGS THAT ARE CHARTED. TRACH IS SECURED AND IN PLACE. SX SMALL AMOUNT OF THICK YELLOW SECRETIONS. AIRWAY IS PATENT. HME HAS BEEN CHANGED. ALARMS ARE ON AUDIBLE. BMV AND BACK UP TRACH IS AT BEDSIDE. VENTILATOR IS PLUGGED INTO RED EMERGENCY OUTLET. PT IS TOLERATING VENT SETTINGS WELL WITH NO RESPIRATORY DISTRESS NOTED. WILL CONTINUE TO MONITOR THROUGHOUT SHIFT.
[2016-08-06] MEDS: ACIDOPHILUS/BULGARICUS CHEW TAB GT SCH ×2 (09:08→20:33)
[2016-08-06] MEDS: LEVETIRACETAM 500 MG/5 ML LIQUID UDC GT SCH ×2 (09:09→20:33)
[2016-08-06] MEDS: PHENOBARBITAL GT SCH ×2 (09:13→20:34)
[2016-08-06] MEDS: FUROSEMIDE 40 MG/4 ML GT SCH (09:13)
[2016-08-06] MEDS: FAMOTIDINE 20 MG TABLET GT SCH ×2 (09:14→20:34)
[2016-08-06] MEDS: COD LIVER OIL/ZINC OXIDE OINT 113 GM TUBE TOP SCH ×2 (09:14→20:39)
[2016-08-06] MEDS: HYDROGEN PEROXIDE 3% 118 ML BOTTLE TP SCH ×2 (09:14→20:39)
[2016-08-06] MEDS: VITAMINS A AND D OINT TP SCH (09:14)
[2016-08-06] MEDS: POTASSIUM CHLORIDE 20 MEQ TAB.PRT.SR XX SCH ×2 (09:15→17:36)
[2016-08-06] MEDS: INSULIN NPH 1,000 UNITS/10 ML VIAL SQ SCH ×2 (09:33→20:50)
[2016-08-06] MEDS: [UNRECOGNIZED DRUG - OTHER] GT SCH (20:33)
[2016-08-06] MEDS: FISH OIL GT SCH (20:33)
[2016-08-06] MEDS: CALCIUM CARBONATE 500 MG TAB.CHEW GT SCH (20:34)
[2016-08-06] MEDS: DIABETICSOURCE AC 1000ML LIQUID GT PRN (20:39)
[2016-08-06] MEDS: INSULIN DETEMIR 300 UNIT/3 ML CARTRIDGE SQ SCH (20:49)
--- NOTE | 2016-08-06 21:54 | NUR ---
PT RECEIVED ON HT-50 VENT. PT IS ON THE FOLLOWING SETTINGS: AC 12, VT 450, PEEP +5, 35% FIO2. SUCTIONED SMALL AMOUNT OF THICK YELLOW SECRETIONS. TOLERATED SUCTIONING WELL. PT IS TOLERATING VENT SETTINGS WELL. TRACH IS SECURED AND PATENT. CHANGED HME. VENT CHECKED. ALARMS ARE ON AND AUDIBLE. VENT IS PLUGGED INTO THE RED OUTLET. BACK-UP TRACH AND AMBU BAG AT BEDSIDE. NO SOB NOTED AT THIS TIME. WILL CONTINUE TO MONITOR PATIENT.
[2016-08-06 22:57] VITALS: BP 98/54
[2016-08-07] MEDS: BACLOFEN 10 MG TABLET GT SCH ×4 (00:22→17:54)
[2016-08-07] MEDS: BLOOD SUGAR DIAGNOSTIC 1 EACH STRIP VI SCH ×4 (00:25→17:54)
[2016-08-07] MEDS: INSULIN REGULAR, HUMAN 300 UNIT/3 ML VIAL SQ PRN ×4 (00:26→17:57)
[2016-08-07] MEDS: NUTRISOURCE FIBER 4 GM PACKET GT SCH ×3 (05:08→21:21)
[2016-08-07 08:00] VITALS: BP 112/57
[2016-08-07] MEDS: ACIDOPHILUS/BULGARICUS CHEW TAB GT SCH ×2 (08:40→21:21)
[2016-08-07] MEDS: LEVETIRACETAM 500 MG/5 ML LIQUID UDC GT SCH ×2 (08:40→21:20)
[2016-08-07] MEDS: FAMOTIDINE 20 MG TABLET GT SCH ×2 (08:42→21:21)
[2016-08-07] MEDS: PHENOBARBITAL GT SCH ×2 (08:42→21:21)
[2016-08-07] MEDS: FUROSEMIDE 40 MG/4 ML GT SCH (08:42)
[2016-08-07] MEDS: HYDROGEN PEROXIDE 3% 118 ML BOTTLE TP SCH ×2 (08:43→21:21)
[2016-08-07] MEDS: VITAMINS A AND D OINT TP SCH (08:43)
[2016-08-07] MEDS: POTASSIUM CHLORIDE 20 MEQ TAB.PRT.SR XX SCH ×2 (08:43→17:54)
[2016-08-07] MEDS: COD LIVER OIL/ZINC OXIDE OINT 113 GM TUBE TOP SCH ×2 (08:43→21:21)
[2016-08-07] MEDS: INSULIN NPH 1,000 UNITS/10 ML VIAL SQ SCH ×2 (08:47→21:23)
--- NOTE | 2016-08-07 12:22 | NUR ---
DYLAN COLLAZO AWARE PT HAS A BLISTER ON THE R HEEL ,WITH NEW ORDERS NOTED FOR CURRICULUM DEVELOPMENT SPECIALIST CONSULT.
--- NOTE | 2016-08-07 14:10 | NUR ---
SEEN BY ROHAN COLLAZO, NO NEW ORDERS.
--- NOTE | 2016-08-07 16:37 | NUR ---
ESTEFANÍA faxed podiatry order to Dr. Hopkins at [phone] (tel # [phone]). tar boiler Miriam notified.
[2016-08-07 20:00] VITALS: BP 116/64
--- NOTE | 2016-08-07 20:05 | NUR ---
Pt received on HT-50 vent with the following settings of AC-12, Vt-450, PEEP+5, FIO2-35%, trached with Shiley#6 DCT trach, which is in the place and secure. No respiratory distress noted. Airway care done, pt responded to physical stimuli. Resus. bag and back up trach at bedside. Vent and alarms checked and reset.
[2016-08-07] MEDS: FISH OIL GT SCH (21:21)
[2016-08-07] MEDS: CALCIUM CARBONATE 500 MG TAB.CHEW GT SCH (21:21)
[2016-08-07] MEDS: [UNRECOGNIZED DRUG - OTHER] GT SCH (21:21)
[2016-08-07] MEDS: INSULIN DETEMIR 300 UNIT/3 ML CARTRIDGE SQ SCH (21:22)
[2016-08-08] MEDS: INSULIN REGULAR, HUMAN 300 UNIT/3 ML VIAL SQ PRN ×4 (00:19→18:09)
[2016-08-08] MEDS: BACLOFEN 10 MG TABLET GT SCH ×4 (00:19→18:07)
[2016-08-08] MEDS: BLOOD SUGAR DIAGNOSTIC 1 EACH STRIP VI SCH ×4 (00:19→18:07)
[2016-08-08] MEDS: NUTRISOURCE FIBER 4 GM PACKET GT SCH ×4 (05:49→22:50)
--- NOTE | 2016-08-08 07:08 | NUR ---
PT RECEIVED ON HT-50 VENT, SETTINGS ARE AC 12, Vt 450, +5, 35% FIO2. PT TOLERATING VENT SETTINGS WELL WITH NO SOB NOTED. SHILEY 6 TRACH IS PATENT AND SECURED WITH TIES. SUCTIONED AND LAVAGED LARGE AMOUNTS OF YELLOW THICK SECRETIONS. HME CHANGED, BVM AND BACK UP TRACH AT BEDSIDE. ALARMS ARE AND AUDIBLE, WILL CONTINUE TO MONITOR.
[2016-08-08 08:00] VITALS: BP 90/55
[2016-08-08] MEDS: ACIDOPHILUS/BULGARICUS CHEW TAB GT SCH ×3 (08:22→21:07)
[2016-08-08] MEDS: LEVETIRACETAM 500 MG/5 ML LIQUID UDC GT SCH ×3 (08:22→21:07)
[2016-08-08] MEDS: FUROSEMIDE 40 MG/4 ML GT SCH (08:23)
[2016-08-08] MEDS: VITAMINS A AND D OINT TP SCH (08:24)
[2016-08-08] MEDS: COD LIVER OIL/ZINC OXIDE OINT 113 GM TUBE TOP SCH ×3 (08:24→21:08)
[2016-08-08] MEDS: FAMOTIDINE 20 MG TABLET GT SCH ×3 (08:24→21:07)
[2016-08-08] MEDS: PHENOBARBITAL GT SCH ×3 (08:24→21:07)
[2016-08-08] MEDS: POTASSIUM CHLORIDE 20 MEQ TAB.PRT.SR XX SCH ×2 (08:24→17:00)
[2016-08-08] MEDS: HYDROGEN PEROXIDE 3% 118 ML BOTTLE TP SCH ×3 (08:24→21:09)
[2016-08-08] MEDS: INSULIN NPH 1,000 UNITS/10 ML VIAL SQ SCH ×3 (08:28→21:16)
--- NOTE | 2016-08-08 12:01 | NUR ---
SEEN BY HARSH Mcgarry AND AWARE OF WT. GAIN AND WITH NEW ORDER CARRIED OUT FOR REG PIER RUNNER CONSULTATION.
--- NOTE | 2016-08-08 14:19 | NUR ---
Patient seen today by Dr. Mejia, application packager. See Optometry Consultation notes for details.
--- NOTE | 2016-08-08 14:49 | NUR ---
SEEN BY DENISE FULLER.
[2016-08-08 17:40] VITALS: BP 90/55
--- NOTE | 2016-08-08 17:40 | NUR ---
DRZeinab JOURNALIST FOR DR. HICKMAN WAS PAGED D/T ORAL TEMP 100.6F,HR 99X' AND TRACHEAL SECRETIONS THICK AND GREEN.
[2016-08-08 20:20] VITALS: BP 91/52
[2016-08-08] MEDS: CALCIUM CARBONATE 500 MG TAB.CHEW GT SCH ×2 (21:00→21:08)
[2016-08-08] MEDS: FISH OIL GT SCH ×2 (21:00→21:07)
[2016-08-08] MEDS: [UNRECOGNIZED DRUG - OTHER] GT SCH ×2 (21:00→21:07)
[2016-08-08] MEDS: INSULIN DETEMIR 300 UNIT/3 ML CARTRIDGE SQ SCH ×2 (21:00→21:15)
--- NOTE | 2016-08-08 23:44 | NUR ---
PT ON CONT HT 50 VENT WITH SHILEY # [address] AND SECURED, WITH SAME CURRENT VENT SETTINGS, PT DOES ASSIST AT TIMES, CHECK CUFF, CHANGE HME, SUCTIONED LIGHT PALE YELL TINGE SECRETIONS, WITH GOOD COUGH EFFORT, NO VENT CHANGES MADE AT THIS TIME, PT STABLE.Andi CHAKRABORTYP Addendum: 08/08/16 at 2346 by ETHEL FERGUSON RT Amended: Links added.
[2016-08-09] MEDS: BACLOFEN 10 MG TABLET GT SCH ×5 (00:20→23:04)
[2016-08-09] MEDS: BLOOD SUGAR DIAGNOSTIC 1 EACH STRIP VI SCH ×4 (00:21→18:14)
[2016-08-09] MEDS: DIABETICSOURCE AC 1000ML LIQUID GT PRN (00:22)
[2016-08-09] MEDS: INSULIN REGULAR, HUMAN 300 UNIT/3 ML VIAL SQ PRN ×5 (00:25→18:13)
--- NOTE | 2016-08-09 05:43 | NUR ---
Patient is afebrile since the start of the shift, no signs of any distress noted, 02 sat @97%, fluids given as ordered, kept clean and comfortable.
[2016-08-09] MEDS: NUTRISOURCE FIBER 4 GM PACKET GT SCH ×3 (06:09→21:30)
--- NOTE | 2016-08-09 07:13 | NUR ---
PT RECEIVED ON CMV WITH TRACH SECURED AND INTACT. AIRWAY PATENT. PT TOLERATING CURRENT VENT SETTINGS FINE WITH NO DISTRESS. VENT ALARMS SET AND AUDIBLE.
[2016-08-09 08:00] VITALS: BP 105/66
[2016-08-09] MEDS: ACIDOPHILUS/BULGARICUS CHEW TAB GT SCH ×2 (08:30→21:30)
[2016-08-09] MEDS: LEVETIRACETAM 500 MG/5 ML LIQUID UDC GT SCH ×2 (08:31→21:30)
[2016-08-09] MEDS: FUROSEMIDE 40 MG/4 ML GT SCH (08:31)
[2016-08-09] MEDS: FAMOTIDINE 20 MG TABLET GT SCH ×2 (08:32→21:30)
[2016-08-09] MEDS: PHENOBARBITAL GT SCH ×2 (08:32→21:30)
[2016-08-09] MEDS: POTASSIUM CHLORIDE 20 MEQ TAB.PRT.SR XX SCH ×2 (08:33→17:55)
[2016-08-09] MEDS: COD LIVER OIL/ZINC OXIDE OINT 113 GM TUBE TOP SCH ×2 (08:33→21:30)
[2016-08-09] MEDS: VITAMINS A AND D OINT TP SCH (08:33)
[2016-08-09] MEDS: HYDROGEN PEROXIDE 3% 118 ML BOTTLE TP SCH ×2 (08:33→21:30)
[2016-08-09] MEDS: INSULIN NPH 1,000 UNITS/10 ML VIAL SQ SCH ×2 (08:34→21:00)
[2016-08-09 20:38] VITALS: BP 121/67
--- NOTE | 2016-08-09 20:53 | NUR ---
RECEIVED PATIENT ON THE HT-50 VENT WITH THE FOLLOWING SETTINGS THAT ARE CHARTED. TRACH IS PROPERLY IN PLACE AND SECURED. AIR WAY IS PATENT. PRN HME CHANGED. SUCTIONED SMALL AMOUNT OF THICK YELLOWISH SECRETIONS. ALARMS ARE ON AND AUDIBLE VENT IS PLUGGED INTO THE RED EMERGENCY OUTLET. BMV AND BACK-UP TRACH ARE AT BEDSIDE. PATIENT IS TOLERATING VENT SETTINGS WELL WITH NO RESPIRATORY DISTRESS NOTED AT THIS TIME. WILL CONTINUE TO MONITOR PATIENT THROUGHOUT SHIFT.
[2016-08-09] MEDS: INSULIN DETEMIR 300 UNIT/3 ML CARTRIDGE SQ SCH (21:00)
[2016-08-09] MEDS: FISH OIL GT SCH (21:30)
[2016-08-09] MEDS: [UNRECOGNIZED DRUG - OTHER] GT SCH (21:30)
[2016-08-09] MEDS: CALCIUM CARBONATE 500 MG TAB.CHEW GT SCH (21:30)
[2016-08-10] MEDS: BLOOD SUGAR DIAGNOSTIC 1 EACH STRIP VI SCH ×4 (00:56→17:29)
[2016-08-10] MEDS: INSULIN REGULAR, HUMAN 300 UNIT/3 ML VIAL SQ PRN ×4 (01:23→17:34)
[2016-08-10] MEDS: NUTRISOURCE FIBER 4 GM PACKET GT SCH ×3 (05:27→21:46)
[2016-08-10] MEDS: BACLOFEN 10 MG TABLET GT SCH ×3 (05:27→17:26)
--- NOTE | 2016-08-10 07:17 | NUR ---
PT RECEIVED ON CMV WITH TRACH SECURED AND INTACT. AIRWAY PATENT. PT TOLERATING CURRENT VENT SETTINGS FINE WITH NO DISTRESS. VENT ALARMS SET AND AUDIBLE.
[2016-08-10] MEDS: DIABETICSOURCE AC 1000ML LIQUID GT PRN (07:30)
[2016-08-10 08:00] VITALS: BP 96/55
[2016-08-10] MEDS: INSULIN NPH 1,000 UNITS/10 ML VIAL SQ SCH ×2 (08:20→21:56)
[2016-08-10] MEDS: ACIDOPHILUS/BULGARICUS CHEW TAB GT SCH ×2 (08:31→21:47)
[2016-08-10] MEDS: LEVETIRACETAM 500 MG/5 ML LIQUID UDC GT SCH ×2 (08:31→21:47)
[2016-08-10] MEDS: FUROSEMIDE 40 MG/4 ML GT SCH (08:32)
[2016-08-10] MEDS: FAMOTIDINE 20 MG TABLET GT SCH ×2 (08:34→21:54)
[2016-08-10] MEDS: PHENOBARBITAL GT SCH ×2 (08:34→21:54)
[2016-08-10] MEDS: COD LIVER OIL/ZINC OXIDE OINT 113 GM TUBE TOP SCH ×2 (08:35→21:47)
[2016-08-10] MEDS: POTASSIUM CHLORIDE 20 MEQ TAB.PRT.SR XX SCH ×2 (08:35→17:26)
[2016-08-10] MEDS: HYDROGEN PEROXIDE 3% 118 ML BOTTLE TP SCH ×2 (08:35→21:46)
[2016-08-10] MEDS: VITAMINS A AND D OINT TP SCH (08:35)
--- NOTE | 2016-08-10 11:32 | NUR ---
NO RECOMMENDATION FOR WT. GAIN THIS MONTH HARSH FORD.
--- NOTE | 2016-08-10 16:24 | NUR ---
CONSULT ORDER PLACED FOR PT WT GAIN PT CURRENTLY ON GTF DIABETISOURCE @45ML/HRX22 HRS WHICH IS PROVIDING 1188KCAL, 59 GM PROTEIN & 809 ML H2O ESTIMATED KCAL/PROTEIN IS CALCULATED BASED ON PT IBW(BEDRIDDEN0 54 KG CALORIES:18-23([id number] KCAL/KG0 PROTEIN: 1-1.2(54-65 GM/KG0 FLUID:25-30(4885-9351 ML/KG) PT IS RECEIVING GTUBE WATER FLUSH WITH [id number](600 ML/DAY) TF RATE WAS REDUCED DUE TO WT GAIN EARLIER ANTHROPOMETRY;HT IS 68",CURRENT WT IS 210LB,BMI 31.9-OBESITY,IBW BEDRIDDEN-119LB,PT IS 176% IBW WT SUMMARY: CURRENT WT IS 210LB 30 DAYS WT IS 203 LB 90 DAYS WT IS 209 LB 180 DAYS WT IS 209 LB SIGNIFICANT WT CHANGES NOTICED IN 30 DAYS 3.48% SIGNIFICANT , WT CHANGES MIGHT EFFECT LIKELY DUE TO FLUID SHIFTS OR FLUID OVERLOAD RD WILL REC WEEKLY WT, WILL F/U IF PT CONTINUES TO GAIN WT, WILL REC REDUCE WATER FLUSHES MONITOR;TOLERATES TF WITH MINIMUM RESIDUAL,NEW LABS,WT Addendum: 08/10/16 at [address] Amended: Links added.
--- NOTE | 2016-08-10 17:29 | NUR ---
NEW ORDER WAS CARRIED OUT FOR WEEKLY WT. REQUESTED BY REG. SENIOR SUPPORT ENGINEER.
--- NOTE | 2016-08-10 20:02 | NUR ---
Pt received on HT-50 vent with the following settings of AC-12, Vt-450, PEEP+5, FIO2-35%, trached with Shiley#6 DCT trach, which is in the place and secure. No sob noted. Airway care done, pt responded to physical stimuli. Resus. bag and back up trach at bedside. Vent and alarms on and audible.
[2016-08-10] MEDS: [UNRECOGNIZED DRUG - OTHER] GT SCH (21:47)
[2016-08-10] MEDS: FISH OIL GT SCH (21:47)
[2016-08-10] MEDS: CALCIUM CARBONATE 500 MG TAB.CHEW GT SCH (21:47)
[2016-08-10] MEDS: INSULIN DETEMIR 300 UNIT/3 ML CARTRIDGE SQ SCH (21:56)
[2016-08-10 23:29] VITALS: BP 113/64
[2016-08-11] MEDS: BACLOFEN 10 MG TABLET GT SCH ×4 (00:49→17:12)
[2016-08-11] MEDS: BLOOD SUGAR DIAGNOSTIC 1 EACH STRIP VI SCH ×4 (00:50→17:12)
[2016-08-11] MEDS: INSULIN REGULAR, HUMAN 300 UNIT/3 ML VIAL SQ PRN ×4 (00:51→17:17)
[2016-08-11] MEDS: NUTRISOURCE FIBER 4 GM PACKET GT SCH ×3 (05:47→22:25)
[2016-08-11] MEDS: DIABETICSOURCE AC 1000ML LIQUID GT PRN ×2 (06:58→08:24)
[2016-08-11 08:00] VITALS: BP 111/57
[2016-08-11] MEDS: INSULIN NPH 1,000 UNITS/10 ML VIAL SQ SCH ×2 (08:14→21:00)
[2016-08-11] MEDS: ACIDOPHILUS/BULGARICUS CHEW TAB GT SCH ×2 (08:22→21:00)
[2016-08-11] MEDS: FUROSEMIDE 40 MG/4 ML GT SCH (08:23)
[2016-08-11] MEDS: FAMOTIDINE 20 MG TABLET GT SCH ×2 (08:23→21:00)
[2016-08-11] MEDS: LEVETIRACETAM 500 MG/5 ML LIQUID UDC GT SCH ×2 (08:23→21:00)
[2016-08-11] MEDS: PHENOBARBITAL GT SCH ×2 (08:23→21:00)
[2016-08-11] MEDS: COD LIVER OIL/ZINC OXIDE OINT 113 GM TUBE TOP SCH ×2 (08:24→21:00)
[2016-08-11] MEDS: HYDROGEN PEROXIDE 3% 118 ML BOTTLE TP SCH ×2 (08:24→21:00)
[2016-08-11] MEDS: POTASSIUM CHLORIDE 20 MEQ TAB.PRT.SR XX SCH ×2 (08:24→17:12)
[2016-08-11] MEDS: VITAMINS A AND D OINT TP SCH (08:24)
--- NOTE | 2016-08-11 10:51 | NUR ---
ESTEFANÍA spoke with Dr. Hopkins today as a follow-up to the physician's order that this SW faxed him on Sunday (see SS notes dated 08/07). Dr. Hopkins stated that he will be coming in this weekend to see the patient. meter maker Vinay notified.
--- NOTE | 2016-08-11 11:41 | NUR ---
PT RECEIVED ON HT-50 VENT, SETTINGS ARE AC 12, Vt 450, +5, 35% FIO2. PT TOLERATING VENT SETTINGS WELL WITH NO S\S OF RESPIRATORY DISTRESS NOTED. SHILEY 6 TRACH IS PATENT AND SECURED WITH TIES. SUCTIONED AND LAVAGED MODERATE AMOUNTS OF YELLOW THICK SECRETIONS. HME CHANGED, BVM AND BACK UP TRACH AT BEDSIDE. ALARMS ARE AND AUDIBLE, WILL CONTINUE TO MONITOR.
--- NOTE | 2016-08-11 20:08 | NUR ---
Pt received on HT-50 vent with the following settings of AC-12, Vt-450, PEEP+5, FIO2-35%, trached with Shiley#6 DCT trach, which is in the place and secure. No distress noted. Airway care done, pt responded to physical stimuli. Resus. bag and back up trach at bedside. Vent and alarms checked and reset.
[2016-08-11] MEDS: INSULIN DETEMIR 300 UNIT/3 ML CARTRIDGE SQ SCH (21:00)
[2016-08-11] MEDS: [UNRECOGNIZED DRUG - OTHER] GT SCH (21:00)
[2016-08-11] MEDS: FISH OIL GT SCH (21:00)
[2016-08-11] MEDS: CALCIUM CARBONATE 500 MG TAB.CHEW GT SCH (21:00)
[2016-08-11 23:40] VITALS: BP 113/67
[2016-08-12] MEDS: BLOOD SUGAR DIAGNOSTIC 1 EACH STRIP VI SCH ×4 (00:02→17:21)
[2016-08-12] MEDS: BACLOFEN 10 MG TABLET GT SCH ×4 (00:02→17:21)
[2016-08-12] MEDS: INSULIN REGULAR, HUMAN 300 UNIT/3 ML VIAL SQ PRN ×4 (00:50→17:20)
[2016-08-12] MEDS: NUTRISOURCE FIBER 4 GM PACKET GT SCH ×3 (06:02→21:23)
[2016-08-12] MEDS: DIABETICSOURCE AC 1000ML LIQUID GT PRN (07:01)
[2016-08-12 08:00] VITALS: BP 116/59
[2016-08-12] MEDS: LEVETIRACETAM 500 MG/5 ML LIQUID UDC GT SCH ×2 (08:38→21:23)
[2016-08-12] MEDS: ACIDOPHILUS/BULGARICUS CHEW TAB GT SCH ×2 (08:38→21:23)
[2016-08-12] MEDS: PHENOBARBITAL GT SCH ×2 (08:39→21:23)
[2016-08-12] MEDS: FUROSEMIDE 40 MG/4 ML GT SCH (08:39)
[2016-08-12] MEDS: COD LIVER OIL/ZINC OXIDE OINT 113 GM TUBE TOP SCH ×2 (08:40→21:23)
[2016-08-12] MEDS: VITAMINS A AND D OINT TP SCH (08:40)
[2016-08-12] MEDS: FAMOTIDINE 20 MG TABLET GT SCH ×2 (08:40→21:23)
[2016-08-12] MEDS: POTASSIUM CHLORIDE 20 MEQ TAB.PRT.SR XX SCH ×2 (08:40→17:21)
[2016-08-12] MEDS: HYDROGEN PEROXIDE 3% 118 ML BOTTLE TP SCH ×2 (08:40→21:23)
[2016-08-12] MEDS: INSULIN NPH 1,000 UNITS/10 ML VIAL SQ SCH ×2 (08:50→21:00)
--- NOTE | 2016-08-12 17:09 | NUR ---
Pharmacy Review for upcoming 08/25 IDT Meeting -VS: TEMP 97.9 HR 76 BP 96/55 -LABS: (07/11/16): WBC 6.1H/H 9.7/28.7PLT 69 (07/15/16): NA 142K 3.8CL 106CO2 32BUN/SCR 27/0.9 BS 318CA 8.3 -MEDICATION USE REVIEWED: > Pt is not on any anti-psych medication > On Phenobarbital 50mg BID, last level 21 (15-39)(06/26/16); and 23 (06/30) >On Keppra 750mg BID, Calculated CrCl 65.4 ml/min, last level was 43.8 (10-40) (06/16/16) > Pt continues on levemir 60 UNITS every night + NPH insulin 32 units Q12H + a custom sliding scale of regular insulin + 8units of regular insulin in addition. BS in July ranged 231-327 > PRN Meds: Tylenol 650mg mild-mod pain used x1 in July Tylenol 650mg for temp none used [place] 5/325mg for mod-severe pain (6-10) none used Artificial tears none used (second month) -NEW ORDERS NOTED: > Nystatin cream and triamcinolone cream for 21 days for back of neck excoriation No new recommendations at this time, will continue to monitor Addendum: 08/24/16 at 1559 by ZENAIDA CONNOLLY ADM Update from today 08/24/16 IDT Meeting: > Pt discussed, continues to be adjusted per MD on insulin regimen d/t elevated BG. No changes noted at meeting, MD continues to follow. > No medication recommendations at this time, no new labs at this time. Will continue to monitor.
[2016-08-12] MEDS: INSULIN DETEMIR 300 UNIT/3 ML CARTRIDGE SQ SCH (21:00)
[2016-08-12] MEDS: FISH OIL GT SCH (21:23)
[2016-08-12] MEDS: CALCIUM CARBONATE 500 MG TAB.CHEW GT SCH (21:23)
[2016-08-12] MEDS: [UNRECOGNIZED DRUG - OTHER] GT SCH (21:23)
[2016-08-12 22:44] VITALS: BP 117/67
[2016-08-13] MEDS: BLOOD SUGAR DIAGNOSTIC 1 EACH STRIP VI SCH ×5 (00:14→23:15)
[2016-08-13] MEDS: BACLOFEN 10 MG TABLET GT SCH ×5 (00:14→23:14)
[2016-08-13] MEDS: INSULIN REGULAR, HUMAN 300 UNIT/3 ML VIAL SQ PRN ×5 (00:15→23:16)
[2016-08-13] MEDS: NUTRISOURCE FIBER 4 GM PACKET GT SCH ×3 (05:53→22:11)
[2016-08-13 08:00] VITALS: BP 112/67
--- NOTE | 2016-08-13 08:23 | NUR ---
PT ON HT-50 VENT. CURRENT VENT SETTINGS ARE A/C 12, VT 450, PEEP +5, FIO2 35%. PT LOOKS COMFORTABLE ON VENT SETTINGS WITH NO SOB NOTED. TRACH IS PATENT AND SECURED WITH TRACH TIES. PT IS TOLERATING SUCTION WITH NO ISSUES NOTED. CUFF IS INFLATED. ALARM PARAMETERS CHECKED; ALARMS ON AND AUDIBLE. AMBU BAG AND BACK UP TRACH ARE AT BEDSIDE. WILL CONTINUE TO MONITOR PT.
[2016-08-13] MEDS: INSULIN NPH 1,000 UNITS/10 ML VIAL SQ SCH ×2 (08:38→20:59)
[2016-08-13] MEDS: ACIDOPHILUS/BULGARICUS CHEW TAB GT SCH ×2 (08:39→20:57)
[2016-08-13] MEDS: LEVETIRACETAM 500 MG/5 ML LIQUID UDC GT SCH ×2 (08:39→20:57)
[2016-08-13] MEDS: FUROSEMIDE 40 MG/4 ML GT SCH (08:40)
[2016-08-13] MEDS: PHENOBARBITAL GT SCH ×2 (08:40→20:57)
[2016-08-13] MEDS: FAMOTIDINE 20 MG TABLET GT SCH ×2 (08:40→20:57)
[2016-08-13] MEDS: POTASSIUM CHLORIDE 20 MEQ TAB.PRT.SR XX SCH ×2 (08:41→17:26)
[2016-08-13] MEDS: HYDROGEN PEROXIDE 3% 118 ML BOTTLE TP SCH ×2 (08:41→20:59)
[2016-08-13] MEDS: VITAMINS A AND D OINT TP SCH (08:41)
[2016-08-13] MEDS: COD LIVER OIL/ZINC OXIDE OINT 113 GM TUBE TOP SCH ×2 (08:41→20:59)
--- NOTE | 2016-08-13 12:00 | NUR ---
seen and examined by DR Hopkins motion picture commentator,regarding the r heel blister,,per Dr Hopkins,no blister noted on the r heel,and l heel,skin is intact.No new orders.
[2016-08-13] MEDS: CALCIUM CARBONATE 500 MG TAB.CHEW GT SCH (20:57)
[2016-08-13] MEDS: FISH OIL GT SCH (20:57)
[2016-08-13] MEDS: [UNRECOGNIZED DRUG - OTHER] GT SCH (20:57)
[2016-08-13] MEDS: INSULIN DETEMIR 300 UNIT/3 ML CARTRIDGE SQ SCH (20:58)
[2016-08-13 23:19] VITALS: BP 96/55
--- NOTE | 2016-08-14 02:16 | NUR ---
PT ON CONT HT 50 VENT WITH SHILEY # [address] AND SECURED, WITH SAME CURRENT VENT SETTINGS, PT DOES ASSIST AT TIMES ,GOOD COUGH EFFORT, SUCTIONED LIGHT PALE YELL TINGE SECRETIONS, CHECK CUFF, CHANGE HME, ALL ALARMS OK, AMBU BAG AT BEDSIDE, NO VENT CHANGES MADE AT THIS TIME.Andi FERGUSON RCP Addendum: 08/14/16 at 0217 by ETHEL FERGUSON RT Amended: Links added.
[2016-08-14] MEDS: BACLOFEN 10 MG TABLET GT SCH ×4 (05:05→22:31)
[2016-08-14] MEDS: NUTRISOURCE FIBER 4 GM PACKET GT SCH ×3 (05:05→22:31)
[2016-08-14] MEDS: BLOOD SUGAR DIAGNOSTIC 1 EACH STRIP VI SCH ×3 (05:05→17:03)
[2016-08-14] MEDS: INSULIN REGULAR, HUMAN 300 UNIT/3 ML VIAL SQ PRN ×3 (05:06→17:05)
--- NOTE | 2016-08-14 07:33 | NUR ---
PT RECEIVED ON HT-50 VENT, SETTINGS ARE AC 12, Vt 450, +5, 35% FIO2. PT DOING WELL ON CURRENT SETTINGS, NO S\S OF RESPIRATORY DISTRESS NOTED. SHILEY 6 TRACH IS PATENT AND SECURED WITH TIES. SUCTIONED AND LAVAGED MODERATE AMOUNTS OF YELLOW THICK SECRETIONS. HME CHANGED, BVM AND BACK UP TRACH AT BEDSIDE. ALARMS ARE AND AUDIBLE, WILL CONTINUE TO MONITOR.
[2016-08-14 08:00] VITALS: BP 121/61
[2016-08-14] MEDS: INSULIN NPH 1,000 UNITS/10 ML VIAL SQ SCH ×2 (08:22→21:00)
[2016-08-14] MEDS: ACIDOPHILUS/BULGARICUS CHEW TAB GT SCH ×2 (08:23→21:00)
[2016-08-14] MEDS: PHENOBARBITAL GT SCH ×2 (08:23→21:00)
[2016-08-14] MEDS: LEVETIRACETAM 500 MG/5 ML LIQUID UDC GT SCH ×2 (08:23→21:00)
[2016-08-14] MEDS: HYDROGEN PEROXIDE 3% 118 ML BOTTLE TP SCH ×2 (08:25→21:00)
[2016-08-14] MEDS: FUROSEMIDE 40 MG/4 ML GT SCH (08:25)
[2016-08-14] MEDS: POTASSIUM CHLORIDE 20 MEQ TAB.PRT.SR XX SCH ×2 (08:25→17:03)
[2016-08-14] MEDS: FAMOTIDINE 20 MG TABLET GT SCH ×2 (08:25→21:00)
[2016-08-14] MEDS: COD LIVER OIL/ZINC OXIDE OINT 113 GM TUBE TOP SCH ×2 (08:25→21:00)
[2016-08-14] MEDS: VITAMINS A AND D OINT TP SCH (08:25)
--- NOTE | 2016-08-14 15:14 | NUR ---
Seen by Kasey Cowan with no new order.
[2016-08-14] MEDS: [UNRECOGNIZED DRUG - OTHER] GT SCH (21:00)
[2016-08-14] MEDS: FISH OIL GT SCH (21:00)
[2016-08-14] MEDS: INSULIN DETEMIR 300 UNIT/3 ML CARTRIDGE SQ SCH (21:00)
[2016-08-14] MEDS: CALCIUM CARBONATE 500 MG TAB.CHEW GT SCH (21:00)
[2016-08-14 21:37] VITALS: BP 104/59
[2016-08-15] MEDS: BLOOD SUGAR DIAGNOSTIC 1 EACH STRIP VI SCH ×4 (00:27→17:05)
[2016-08-15] MEDS: INSULIN REGULAR, HUMAN 300 UNIT/3 ML VIAL SQ PRN ×4 (00:27→17:09)
[2016-08-15] MEDS: BACLOFEN 10 MG TABLET GT SCH ×4 (05:53→21:46)
[2016-08-15] MEDS: NUTRISOURCE FIBER 4 GM PACKET GT SCH ×3 (05:53→21:46)
[2016-08-15 08:00] VITALS: BP 107/67
[2016-08-15] MEDS: LEVETIRACETAM 500 MG/5 ML LIQUID UDC GT SCH ×2 (08:19→21:46)
[2016-08-15] MEDS: ACIDOPHILUS/BULGARICUS CHEW TAB GT SCH ×2 (08:19→21:46)
[2016-08-15] MEDS: FUROSEMIDE 40 MG/4 ML GT SCH (08:19)
[2016-08-15] MEDS: INSULIN NPH 1,000 UNITS/10 ML VIAL SQ SCH ×2 (08:22→21:42)
[2016-08-15] MEDS: POTASSIUM CHLORIDE 20 MEQ TAB.PRT.SR XX SCH ×2 (08:26→17:05)
[2016-08-15] MEDS: VITAMINS A AND D OINT TP SCH (08:26)
[2016-08-15] MEDS: FAMOTIDINE 20 MG TABLET GT SCH ×2 (08:26→21:45)
[2016-08-15] MEDS: COD LIVER OIL/ZINC OXIDE OINT 113 GM TUBE TOP SCH ×2 (08:26→21:46)
[2016-08-15] MEDS: HYDROGEN PEROXIDE 3% 118 ML BOTTLE TP SCH ×2 (08:26→21:46)
[2016-08-15] MEDS: PHENOBARBITAL GT SCH ×2 (08:26→21:45)
--- NOTE | 2016-08-15 12:30 | NUR ---
Seen by Kasey Cowan with no new order.
--- NOTE | 2016-08-15 14:00 | NUR ---
SEEN AND EXAMINED BY DENISE FULLER.
[2016-08-15] MEDS: INSULIN DETEMIR 300 UNIT/3 ML CARTRIDGE SQ SCH (21:41)
[2016-08-15] MEDS: CALCIUM CARBONATE 500 MG TAB.CHEW GT SCH (21:45)
[2016-08-15] MEDS: [UNRECOGNIZED DRUG - OTHER] GT SCH (21:53)
[2016-08-15] MEDS: FISH OIL GT SCH (21:53)
[2016-08-15 21:56] VITALS: BP 99/62
[2016-08-16] MEDS: INSULIN REGULAR, HUMAN 300 UNIT/3 ML VIAL SQ PRN ×4 (00:26→17:32)
[2016-08-16] MEDS: BLOOD SUGAR DIAGNOSTIC 1 EACH STRIP VI SCH ×4 (00:31→17:31)
[2016-08-16] MEDS: BACLOFEN 10 MG TABLET GT SCH ×3 (06:00→17:31)
[2016-08-16] MEDS: NUTRISOURCE FIBER 4 GM PACKET GT SCH ×3 (06:00→22:19)
[2016-08-16 08:00] VITALS: BP 107/64
[2016-08-16] MEDS: LEVETIRACETAM 500 MG/5 ML LIQUID UDC GT SCH ×2 (08:05→21:00)
[2016-08-16] MEDS: ACIDOPHILUS/BULGARICUS CHEW TAB GT SCH ×2 (08:05→21:00)
[2016-08-16] MEDS: PHENOBARBITAL GT SCH ×2 (08:07→21:00)
[2016-08-16] MEDS: FUROSEMIDE 40 MG/4 ML GT SCH (08:07)
[2016-08-16] MEDS: COD LIVER OIL/ZINC OXIDE OINT 113 GM TUBE TOP SCH ×2 (08:08→21:00)
[2016-08-16] MEDS: FAMOTIDINE 20 MG TABLET GT SCH ×2 (08:08→21:00)
[2016-08-16] MEDS: HYDROGEN PEROXIDE 3% 118 ML BOTTLE TP SCH ×2 (08:09→21:00)
[2016-08-16] MEDS: POTASSIUM CHLORIDE 20 MEQ TAB.PRT.SR XX SCH ×2 (08:09→17:31)
[2016-08-16] MEDS: VITAMINS A AND D OINT TP SCH (08:09)
[2016-08-16] MEDS: INSULIN NPH 1,000 UNITS/10 ML VIAL SQ SCH (08:15)
[2016-08-16] MEDS: DIABETICSOURCE AC 1000ML LIQUID GT PRN (16:02)
--- NOTE | 2016-08-16 16:30 | NUR ---
SEEN AND EXAMINED BY DR BARNETT,WITH NEW ORDERS.DC NPH INSULIN AND CONTINUE WITH LEVEMIR INSULIN IN THE MORNING AND AT BEDTIME,ORDERS CARRIED OUT.
[2016-08-16] MEDS: FISH OIL GT SCH (21:00)
[2016-08-16] MEDS: INSULIN DETEMIR 300 UNIT/3 ML CARTRIDGE SQ SCH (21:00)
[2016-08-16] MEDS: [UNRECOGNIZED DRUG - OTHER] GT SCH (21:00)
[2016-08-16] MEDS: CALCIUM CARBONATE 500 MG TAB.CHEW GT SCH (21:00)
[2016-08-16 23:57] VITALS: BP 109/58
[2016-08-17] MEDS: INSULIN REGULAR, HUMAN 300 UNIT/3 ML VIAL SQ PRN ×4 (01:26→17:24)
--- NOTE | 2016-08-17 04:05 | NUR ---
PT ON CONT HT 50 VENT WITH SHILEY # [address] AND SECURED, WITH SAME CURRENT VENT SETTINGS, PT DOES ASSIST AT TIMES ,WITH GOOD COUGH EFFORT, SUCTIONED LIGHT PALE YELL TINGE SECRETIONS, WITH NO VENT VENT CHANGES MADE AT THIS TIME, CHECK CUFF, CHANGE HME, ALL ALARMS OK, AMBU BAG AT BEDSIDE.Andi FERGUSON RCP Addendum: 08/17/16 at 0407 by ETHEL FERGUSON RT Amended: Links added.
[2016-08-17] MEDS: BACLOFEN 10 MG TABLET GT SCH ×4 (05:22→17:22)
[2016-08-17] MEDS: BLOOD SUGAR DIAGNOSTIC 1 EACH STRIP VI SCH ×4 (05:24→17:22)
[2016-08-17] MEDS: NUTRISOURCE FIBER 4 GM PACKET GT SCH ×3 (05:24→21:40)
[2016-08-17 08:00] VITALS: BP 105/59
[2016-08-17] MEDS: LEVETIRACETAM 500 MG/5 ML LIQUID UDC GT SCH ×2 (08:13→21:21)
[2016-08-17] MEDS: ACIDOPHILUS/BULGARICUS CHEW TAB GT SCH ×2 (08:13→21:21)
[2016-08-17] MEDS: PHENOBARBITAL GT SCH ×2 (08:15→21:22)
[2016-08-17] MEDS: HYDROGEN PEROXIDE 3% 118 ML BOTTLE TP SCH ×2 (08:15→21:38)
[2016-08-17] MEDS: FUROSEMIDE 40 MG/4 ML GT SCH (08:15)
[2016-08-17] MEDS: FAMOTIDINE 20 MG TABLET GT SCH ×2 (08:15→21:22)
[2016-08-17] MEDS: COD LIVER OIL/ZINC OXIDE OINT 113 GM TUBE TOP SCH ×2 (08:15→21:38)
[2016-08-17] MEDS: VITAMINS A AND D OINT TP SCH (08:16)
[2016-08-17] MEDS: POTASSIUM CHLORIDE 20 MEQ TAB.PRT.SR XX SCH ×2 (08:16→17:21)
[2016-08-17] MEDS: INSULIN DETEMIR 300 UNIT/3 ML CARTRIDGE SQ SCH ×2 (08:18→21:39)
--- NOTE | 2016-08-17 15:25 | NUR ---
SEEN BY HARSH UFLLER.
[2016-08-17] MEDS: DIABETICSOURCE AC 1000ML LIQUID GT PRN (18:43)
--- NOTE | 2016-08-17 19:50 | NUR ---
Pt received in semi diaz position, has limited response to verbal stimuli, and is on Continuous mechanical ventilation via trach. Pt is on Taurus HT-50 vent with settings of A/C-12, VT-450, PEEP +5, FIO2-35%. Trach is a Shiley 6 DCT. Trach is patent and secure. No irritation or redness noted around stoma or trach tie. Tolerating vent settings well. SpO2-98%. HME changed. PPE used. Vent alarm parameters checked, on and audible. Vent plugged into red emergency outlet. Bag/valve/mask and back up trach bedside.
[2016-08-17] MEDS: [UNRECOGNIZED DRUG - OTHER] GT SCH (21:21)
[2016-08-17] MEDS: FISH OIL GT SCH (21:21)
[2016-08-17] MEDS: CALCIUM CARBONATE 500 MG TAB.CHEW GT SCH (21:22)
[2016-08-17 21:39] VITALS: BP 104/60
[2016-08-18] MEDS: INSULIN REGULAR, HUMAN 300 UNIT/3 ML VIAL SQ PRN ×4 (00:13→17:17)
[2016-08-18] MEDS: BACLOFEN 10 MG TABLET GT SCH ×4 (00:17→17:15)
[2016-08-18] MEDS: BLOOD SUGAR DIAGNOSTIC 1 EACH STRIP VI SCH ×4 (00:17→17:16)
[2016-08-18] MEDS: NUTRISOURCE FIBER 4 GM PACKET GT SCH ×3 (06:15→21:48)
[2016-08-18 08:00] VITALS: BP 115/72
[2016-08-18] MEDS: FUROSEMIDE 40 MG/4 ML GT SCH (08:00)
[2016-08-18] MEDS: LEVETIRACETAM 500 MG/5 ML LIQUID UDC GT SCH ×2 (08:00→21:45)
[2016-08-18] MEDS: ACIDOPHILUS/BULGARICUS CHEW TAB GT SCH ×2 (08:00→21:45)
[2016-08-18] MEDS: PHENOBARBITAL GT SCH ×2 (08:00→21:47)
[2016-08-18] MEDS: FAMOTIDINE 20 MG TABLET GT SCH ×2 (08:00→21:47)
--- NOTE | 2016-08-18 08:00 | NUR ---
RECEIVED ON CONTINUOUS VENT AC 12 VT 450 FIO2 35% PEEP 5. TRACH IN PLACE AND SECURED. BACK UP TRACH AND AMBU BAG AT BEDSIDE. SUCTION PRN. VENT CHECKED, ALARMS WORKING WELL AND AUDIBLE. NO DISTRESS NORED. WILL CONTINUE TO MONITOR.
[2016-08-18] MEDS: POTASSIUM CHLORIDE 20 MEQ TAB.PRT.SR XX SCH ×2 (08:01→17:15)
[2016-08-18] MEDS: VITAMINS A AND D OINT TP SCH (08:01)
[2016-08-18] MEDS: COD LIVER OIL/ZINC OXIDE OINT 113 GM TUBE TOP SCH ×2 (08:01→21:48)
[2016-08-18] MEDS: HYDROGEN PEROXIDE 3% 118 ML BOTTLE TP SCH ×2 (08:01→21:48)
[2016-08-18] MEDS: INSULIN DETEMIR 300 UNIT/3 ML CARTRIDGE SQ SCH ×2 (08:01→21:47)
[2016-08-18] MEDS: FISH OIL GT SCH (21:47)
[2016-08-18] MEDS: [UNRECOGNIZED DRUG - OTHER] GT SCH (21:47)
[2016-08-18] MEDS: CALCIUM CARBONATE 500 MG TAB.CHEW GT SCH (21:47)
[2016-08-18 22:14] VITALS: BP 102/64
[2016-08-18] MEDS: DIABETICSOURCE AC 1000ML LIQUID GT PRN (23:00)
[2016-08-19] MEDS: BACLOFEN 10 MG TABLET GT SCH ×4 (00:10→18:19)
[2016-08-19] MEDS: BLOOD SUGAR DIAGNOSTIC 1 EACH STRIP VI SCH ×4 (00:14→18:29)
[2016-08-19] MEDS: INSULIN REGULAR, HUMAN 300 UNIT/3 ML VIAL SQ PRN ×4 (00:14→18:30)
[2016-08-19] MEDS: NUTRISOURCE FIBER 4 GM PACKET GT SCH ×3 (05:49→21:14)
[2016-08-19 08:00] VITALS: BP 106/54
[2016-08-19] MEDS: LEVETIRACETAM 500 MG/5 ML LIQUID UDC GT SCH ×2 (09:31→21:12)
[2016-08-19] MEDS: ACIDOPHILUS/BULGARICUS CHEW TAB GT SCH ×2 (09:31→21:12)
[2016-08-19] MEDS: PHENOBARBITAL GT SCH ×2 (09:32→21:13)
[2016-08-19] MEDS: FAMOTIDINE 20 MG TABLET GT SCH ×2 (09:32→21:13)
[2016-08-19] MEDS: HYDROGEN PEROXIDE 3% 118 ML BOTTLE TP SCH ×2 (09:32→21:14)
[2016-08-19] MEDS: FUROSEMIDE 40 MG/4 ML GT SCH (09:32)
[2016-08-19] MEDS: COD LIVER OIL/ZINC OXIDE OINT 113 GM TUBE TOP SCH ×2 (09:32→21:14)
[2016-08-19] MEDS: POTASSIUM CHLORIDE 20 MEQ TAB.PRT.SR XX SCH ×2 (09:33→18:00)
[2016-08-19] MEDS: VITAMINS A AND D OINT TP SCH (09:33)
[2016-08-19] MEDS: INSULIN DETEMIR 300 UNIT/3 ML CARTRIDGE SQ SCH ×2 (09:34→21:37)
--- NOTE | 2016-08-19 20:20 | NUR ---
Pt received on HT-50 ventilator with current settings of AC 12, VT 450, Peep +5, FiO2 35%. Pt has a Shiley 6 DCT trach which is secured with foam ties and is patent. No signs of respiratory distress noted at this time, pt tolerating vent settings well. Changed HME and suction salguero. Suctioned pt with small amount of thick pale-yellowish secretions. Vent alarms functioning and audible. Ambu-bag and back-up trach is at bedside. Will continue to monitor pt throughout shift.
[2016-08-19] MEDS: FISH OIL GT SCH (21:13)
[2016-08-19] MEDS: CALCIUM CARBONATE 500 MG TAB.CHEW GT SCH (21:13)
[2016-08-19] MEDS: [UNRECOGNIZED DRUG - OTHER] GT SCH (21:13)
[2016-08-19 22:23] VITALS: BP 95/59
[2016-08-20] MEDS: BACLOFEN 10 MG TABLET GT SCH ×5 (00:07→23:06)
[2016-08-20] MEDS: BLOOD SUGAR DIAGNOSTIC 1 EACH STRIP VI SCH ×5 (00:07→23:48)
[2016-08-20] MEDS: INSULIN REGULAR, HUMAN 300 UNIT/3 ML VIAL SQ PRN ×5 (00:15→23:50)
[2016-08-20] MEDS: DIABETICSOURCE AC 1000ML LIQUID GT PRN (00:33)
[2016-08-20] MEDS: NUTRISOURCE FIBER 4 GM PACKET GT SCH ×3 (05:32→21:08)
[2016-08-20 08:00] VITALS: BP 106/63
[2016-08-20] MEDS: ACIDOPHILUS/BULGARICUS CHEW TAB GT SCH ×2 (08:04→20:46)
[2016-08-20] MEDS: LEVETIRACETAM 500 MG/5 ML LIQUID UDC GT SCH ×2 (08:04→20:46)
[2016-08-20] MEDS: PHENOBARBITAL GT SCH ×2 (08:04→20:47)
[2016-08-20] MEDS: FUROSEMIDE 40 MG/4 ML GT SCH (08:04)
[2016-08-20] MEDS: VITAMINS A AND D OINT TP SCH (08:05)
[2016-08-20] MEDS: FAMOTIDINE 20 MG TABLET GT SCH ×2 (08:05→20:46)
[2016-08-20] MEDS: INSULIN DETEMIR 300 UNIT/3 ML CARTRIDGE SQ SCH ×2 (08:05→20:55)
[2016-08-20] MEDS: POTASSIUM CHLORIDE 20 MEQ TAB.PRT.SR XX SCH ×2 (08:05→17:10)
[2016-08-20] MEDS: COD LIVER OIL/ZINC OXIDE OINT 113 GM TUBE TOP SCH ×2 (08:05→20:46)
[2016-08-20] MEDS: HYDROGEN PEROXIDE 3% 118 ML BOTTLE TP SCH ×2 (08:05→20:46)
--- NOTE | 2016-08-20 20:02 | NUR ---
PT ON HT-50 VENT WITH SETTINGS: A/C 12, VT 450, PEEP +5, FIO2 35%. PT TOLERATING CURRENT VENT SETTINGS WITH NO ISSUES NOTED. TRACH IS PATENT AND SECURED WITH TRACH TIES. HME CHANGED. CUFF INFLATED. TOLERATING PRN SUCTION. ALARMS CHECKED, ARE ON AND AUDIBLE. AMBU BAG AND BACK UP TRACH ARE AT BEDSIDE. WILL CONTINUE TO MONITOR PT THROUGHOUT SHIFT.
[2016-08-20] MEDS: FISH OIL GT SCH (20:46)
[2016-08-20] MEDS: [UNRECOGNIZED DRUG - OTHER] GT SCH (20:46)
[2016-08-20] MEDS: CALCIUM CARBONATE 500 MG TAB.CHEW GT SCH (20:46)
[2016-08-20 22:50] VITALS: BP 104/60
[2016-08-21] MEDS: NUTRISOURCE FIBER 4 GM PACKET GT SCH ×3 (05:17→21:34)
[2016-08-21] MEDS: BACLOFEN 10 MG TABLET GT SCH ×3 (05:17→17:06)
[2016-08-21] MEDS: BLOOD SUGAR DIAGNOSTIC 1 EACH STRIP VI SCH ×3 (05:17→17:06)
[2016-08-21] MEDS: DIABETICSOURCE AC 1000ML LIQUID GT PRN (05:17)
[2016-08-21] MEDS: INSULIN REGULAR, HUMAN 300 UNIT/3 ML VIAL SQ PRN ×3 (05:18→17:07)
--- NOTE | 2016-08-21 07:55 | NUR ---
RECEIVED ON CONTINUOUS VENT AC 12 VT 450 PEEP 5 FIO2 35%. TRACH IN PLACE AND SECURED. BACK UP TRACH AND AMBU BAG AT BEDSIDE. SUCTION SMALL AMOUNT THIN WHITE SECRETIONS.VENT CHECKED, ALARMS WORKING WELL AND AUDIBLE. NO DISTRESS NOTED AT TIS TIME. WILL CONTINUE TO MONITOR.
[2016-08-21 08:00] VITALS: BP 106/61
[2016-08-21] MEDS: ACIDOPHILUS/BULGARICUS CHEW TAB GT SCH ×2 (08:29→21:33)
[2016-08-21] MEDS: FUROSEMIDE 40 MG/4 ML GT SCH (08:30)
[2016-08-21] MEDS: LEVETIRACETAM 500 MG/5 ML LIQUID UDC GT SCH ×2 (08:30→21:33)
[2016-08-21] MEDS: PHENOBARBITAL GT SCH ×2 (08:31→21:33)
[2016-08-21] MEDS: FAMOTIDINE 20 MG TABLET GT SCH ×2 (08:31→21:33)
[2016-08-21] MEDS: INSULIN DETEMIR 300 UNIT/3 ML CARTRIDGE SQ SCH ×2 (08:32→21:32)
[2016-08-21] MEDS: HYDROGEN PEROXIDE 3% 118 ML BOTTLE TP SCH ×2 (08:33→21:34)
[2016-08-21] MEDS: POTASSIUM CHLORIDE 20 MEQ TAB.PRT.SR XX SCH ×2 (08:33→17:05)
[2016-08-21] MEDS: VITAMINS A AND D OINT TP SCH (08:33)
[2016-08-21] MEDS: COD LIVER OIL/ZINC OXIDE OINT 113 GM TUBE TOP SCH ×2 (08:33→21:33)
--- NOTE | 2016-08-21 12:00 | NUR ---
SEEN AND EXAMINED BY DYLAN COLLAZO,NO NEW ORDERS.
--- NOTE | 2016-08-21 19:58 | NUR ---
Trached patient was endorsed on mechanical ventilation with ordered vent settings AC 12 VT 450 PEEP 5 FIO2 35%. No signs or symptoms of respiratory distress noted at this time. She is trached with a shiley #6 DCT; SERVICE DIRECTOR used for cuff inflation. HME was changed without complications. Ambubag and spare trach are at bedside. Will continue to monitor.
[2016-08-21 20:00] VITALS: BP 112/60
[2016-08-21] MEDS: CALCIUM CARBONATE 500 MG TAB.CHEW GT SCH (21:33)
[2016-08-21] MEDS: FISH OIL GT SCH (21:33)
[2016-08-21] MEDS: [UNRECOGNIZED DRUG - OTHER] GT SCH (21:33)
[2016-08-22] MEDS: BLOOD SUGAR DIAGNOSTIC 1 EACH STRIP VI SCH ×4 (00:15→17:12)
[2016-08-22] MEDS: BACLOFEN 10 MG TABLET GT SCH ×4 (00:15→17:12)
[2016-08-22] MEDS: INSULIN REGULAR, HUMAN 300 UNIT/3 ML VIAL SQ PRN ×4 (00:16→17:19)
[2016-08-22] MEDS: NUTRISOURCE FIBER 4 GM PACKET GT SCH ×4 (05:48→21:00)
[2016-08-22] MEDS: DIABETICSOURCE AC 1000ML LIQUID GT PRN (06:40)
[2016-08-22 08:00] VITALS: BP 94/53
[2016-08-22] MEDS: ACIDOPHILUS/BULGARICUS CHEW TAB GT SCH ×2 (08:46→20:54)
[2016-08-22] MEDS: LEVETIRACETAM 500 MG/5 ML LIQUID UDC GT SCH ×2 (08:47→20:54)
[2016-08-22] MEDS: FUROSEMIDE 40 MG/4 ML GT SCH (08:48)
[2016-08-22] MEDS: PHENOBARBITAL GT SCH ×2 (08:48→20:55)
[2016-08-22] MEDS: FAMOTIDINE 20 MG TABLET GT SCH ×2 (08:48→20:55)
[2016-08-22] MEDS: HYDROGEN PEROXIDE 3% 118 ML BOTTLE TP SCH ×2 (08:49→21:00)
[2016-08-22] MEDS: COD LIVER OIL/ZINC OXIDE OINT 113 GM TUBE TOP SCH ×2 (08:49→20:59)
[2016-08-22] MEDS: POTASSIUM CHLORIDE 20 MEQ TAB.PRT.SR XX SCH ×2 (08:49→17:12)
[2016-08-22] MEDS: VITAMINS A AND D OINT TP SCH (08:49)
[2016-08-22] MEDS: INSULIN DETEMIR 300 UNIT/3 ML CARTRIDGE SQ SCH ×2 (08:56→20:58)
--- NOTE | 2016-08-22 11:00 | NUR ---
Patient Noted with excoriation at the back of her neck in the skin folds during care. Notified PA. Bharath with new orders, noted and carried out.
--- NOTE | 2016-08-22 12:43 | NUR ---
SEEN BY HARSH Mcgarry AND O.
--- NOTE | 2016-08-22 19:50 | NUR ---
Pt received in semi diaz position, has limited response to verbal stimuli, and is on Continuous mechanical ventilation via trach. Pt is on Marathon HT-50 vent with settings of A/C-12, VT-450, PEEP +5, FIO2-35%. Trach is a [place] 6 DCT. Trach is patent and secure. No irritation or redness noted around stoma or trach tie. Tolerating vent settings well. SpO2-99%. HME changed. PPE used. Vent alarm parameters checked, on and audible. Vent plugged into red emergency outlet. Bag/valve/mask and back up trach bedside.
[2016-08-22 20:00] VITALS: BP 107/66
[2016-08-22] MEDS: FISH OIL GT SCH (20:55)
[2016-08-22] MEDS: CALCIUM CARBONATE 500 MG TAB.CHEW GT SCH (20:55)
[2016-08-22] MEDS: [UNRECOGNIZED DRUG - OTHER] GT SCH (20:55)
[2016-08-22] MEDS: NYSTATIN CREAM 30 GM TUBE TP SCH (21:00)
[2016-08-22] MEDS: TRIAMCINOLONE ACET 0.1% CREAM 15 GM TUBE TP SCH (21:00)
[2016-08-23] MEDS: INSULIN REGULAR, HUMAN 300 UNIT/3 ML VIAL SQ PRN ×4 (01:19→17:18)
[2016-08-23] MEDS: BACLOFEN 10 MG TABLET GT SCH ×4 (05:04→17:16)
[2016-08-23] MEDS: NUTRISOURCE FIBER 4 GM PACKET GT SCH ×3 (05:04→21:34)
[2016-08-23] MEDS: BLOOD SUGAR DIAGNOSTIC 1 EACH STRIP VI SCH ×4 (05:34→17:16)
[2016-08-23] MEDS: ACIDOPHILUS/BULGARICUS CHEW TAB GT SCH ×2 (08:02→21:33)
[2016-08-23] MEDS: FUROSEMIDE 40 MG/4 ML GT SCH (08:03)
[2016-08-23] MEDS: PHENOBARBITAL GT SCH ×2 (08:03→21:32)
[2016-08-23] MEDS: LEVETIRACETAM 500 MG/5 ML LIQUID UDC GT SCH ×2 (08:03→21:33)
[2016-08-23] MEDS: FAMOTIDINE 20 MG TABLET GT SCH ×2 (08:04→21:33)
[2016-08-23] MEDS: TRIAMCINOLONE ACET 0.1% CREAM 15 GM TUBE TP SCH ×2 (08:07→21:34)
[2016-08-23] MEDS: POTASSIUM CHLORIDE 20 MEQ TAB.PRT.SR XX SCH ×2 (08:07→17:16)
[2016-08-23] MEDS: INSULIN DETEMIR 300 UNIT/3 ML CARTRIDGE SQ SCH ×2 (08:07→21:26)
[2016-08-23] MEDS: VITAMINS A AND D OINT TP SCH (08:07)
[2016-08-23] MEDS: NYSTATIN CREAM 30 GM TUBE TP SCH ×2 (08:07→21:34)
[2016-08-23] MEDS: COD LIVER OIL/ZINC OXIDE OINT 113 GM TUBE TOP SCH ×2 (08:08→21:33)
[2016-08-23] MEDS: HYDROGEN PEROXIDE 3% 118 ML BOTTLE TP SCH ×2 (08:08→21:33)
[2016-08-23 09:40] VITALS: BP 141/73
[2016-08-23] MEDS: DIABETICSOURCE AC 1000ML LIQUID GT PRN (14:10)
--- NOTE | 2016-08-23 16:58 | NUR ---
SEEN BY DR. BARNETT AND WITH NEW ORDERS CARRIED OUT.
[2016-08-23 20:00] VITALS: BP 106/66
--- NOTE | 2016-08-23 20:47 | NUR ---
Received pt on HT-50 vent with the following settings of AC-12, Vt-450, PEEP+5, FIO2-35%, trached with Shiley#6 DCT trach, which is in the place and secure. No distress noted. Airway care done, pt responded to physical stimuli. Resus. bag and back up trach at bedside. Vent and alarms checked and reset.
[2016-08-23] MEDS: CALCIUM CARBONATE 500 MG TAB.CHEW GT SCH (21:33)
[2016-08-23] MEDS: FISH OIL GT SCH (21:33)
[2016-08-23] MEDS: [UNRECOGNIZED DRUG - OTHER] GT SCH (21:33)
[2016-08-24] MEDS: BACLOFEN 10 MG TABLET GT SCH ×4 (00:31→17:03)
[2016-08-24] MEDS: BLOOD SUGAR DIAGNOSTIC 1 EACH STRIP VI SCH ×4 (00:31→17:03)
[2016-08-24] MEDS: INSULIN REGULAR, HUMAN 300 UNIT/3 ML VIAL SQ PRN ×4 (00:32→17:04)
[2016-08-24] MEDS: NUTRISOURCE FIBER 4 GM PACKET GT SCH ×3 (05:49→21:34)
[2016-08-24 08:00] VITALS: BP 103/62
[2016-08-24] MEDS: LEVETIRACETAM 500 MG/5 ML LIQUID UDC GT SCH ×2 (08:03→21:32)
[2016-08-24] MEDS: ACIDOPHILUS/BULGARICUS CHEW TAB GT SCH ×2 (08:03→21:32)
[2016-08-24] MEDS: FUROSEMIDE 40 MG/4 ML GT SCH (08:04)
[2016-08-24] MEDS: PHENOBARBITAL GT SCH ×2 (08:05→21:29)
[2016-08-24] MEDS: FAMOTIDINE 20 MG TABLET GT SCH ×2 (08:05→21:28)
[2016-08-24] MEDS: TRIAMCINOLONE ACET 0.1% CREAM 15 GM TUBE TP SCH ×2 (08:09→21:33)
[2016-08-24] MEDS: INSULIN DETEMIR 300 UNIT/3 ML CARTRIDGE SQ SCH ×2 (08:09→21:26)
[2016-08-24] MEDS: VITAMINS A AND D OINT TP SCH (08:09)
[2016-08-24] MEDS: HYDROGEN PEROXIDE 3% 118 ML BOTTLE TP SCH ×2 (08:09→21:33)
[2016-08-24] MEDS: COD LIVER OIL/ZINC OXIDE OINT 113 GM TUBE TOP SCH ×2 (08:09→21:33)
[2016-08-24] MEDS: NYSTATIN CREAM 30 GM TUBE TP SCH ×2 (08:09→21:33)
[2016-08-24] MEDS: POTASSIUM CHLORIDE 20 MEQ TAB.PRT.SR XX SCH ×2 (08:10→17:03)
--- NOTE | 2016-08-24 15:24 | NUR ---
INTERDISCIPLINARY PLAN OF CARE CONFERENCE was held today. Patient's family was invited to the meeting, but they were unable to attend. Dr. Gilbert and the Interdisciplinary Team reviewed the current plan of care in detail. RN provided updates on patient's medical condition and some of the recent changes in patient's medications. See RN IDT conference notes for details. No major changes were reported at this time. See also all other disciplines IDT notes and physician's progress notes for additional details.
[2016-08-24] MEDS: DIABETICSOURCE AC 1000ML LIQUID GT PRN (16:54)
--- NOTE | 2016-08-24 20:30 | NUR ---
Pt received on HT-50 vent with the following settings of AC-12, Vt-450, PEEP+5, FIO2-35%, trached with Shiley#6 DCT trach, which is in the place and secure. No respiratory distress noted. Airway care done, pt responded to physical stimuli. Resus. bag and back up trach at bedside. Vent and alarms on and audible.
[2016-08-24] MEDS: CALCIUM CARBONATE 500 MG TAB.CHEW GT SCH (21:28)
[2016-08-24] MEDS: [UNRECOGNIZED DRUG - OTHER] GT SCH (21:33)
[2016-08-24] MEDS: FISH OIL GT SCH (21:33)
[2016-08-24 21:55] VITALS: BP 113/57
[2016-08-25] MEDS: INSULIN REGULAR, HUMAN 300 UNIT/3 ML VIAL SQ PRN ×4 (01:05→17:02)
[2016-08-25] MEDS: BACLOFEN 10 MG TABLET GT SCH ×4 (06:19→17:01)
[2016-08-25] MEDS: NUTRISOURCE FIBER 4 GM PACKET GT SCH ×3 (06:19→21:46)
[2016-08-25] MEDS: BLOOD SUGAR DIAGNOSTIC 1 EACH STRIP VI SCH ×4 (06:20→17:01)
[2016-08-25 08:00] VITALS: BP 110/57
[2016-08-25] MEDS: ACIDOPHILUS/BULGARICUS CHEW TAB GT SCH ×2 (08:42→21:45)
[2016-08-25] MEDS: FUROSEMIDE 40 MG/4 ML GT SCH (08:43)
[2016-08-25] MEDS: LEVETIRACETAM 500 MG/5 ML LIQUID UDC GT SCH ×2 (08:43→21:45)
[2016-08-25] MEDS: FAMOTIDINE 20 MG TABLET GT SCH ×2 (08:43→21:45)
[2016-08-25] MEDS: PHENOBARBITAL GT SCH ×2 (08:43→21:45)
[2016-08-25] MEDS: VITAMINS A AND D OINT TP SCH (08:44)
[2016-08-25] MEDS: TRIAMCINOLONE ACET 0.1% CREAM 15 GM TUBE TP SCH ×2 (08:44→21:46)
[2016-08-25] MEDS: NYSTATIN CREAM 30 GM TUBE TP SCH ×2 (08:44→21:46)
[2016-08-25] MEDS: HYDROGEN PEROXIDE 3% 118 ML BOTTLE TP SCH ×2 (08:44→21:46)
[2016-08-25] MEDS: COD LIVER OIL/ZINC OXIDE OINT 113 GM TUBE TOP SCH ×2 (08:44→21:45)
[2016-08-25] MEDS: POTASSIUM CHLORIDE 20 MEQ TAB.PRT.SR XX SCH ×2 (08:44→17:01)
[2016-08-25] MEDS: INSULIN DETEMIR 300 UNIT/3 ML CARTRIDGE SQ SCH ×2 (08:44→21:44)
[2016-08-25] MEDS: DIABETICSOURCE AC 1000ML LIQUID GT PRN (17:03)
--- NOTE | 2016-08-25 19:40 | NUR ---
RECEIVED ON CONTINUOUS VENT AC 12 VT 450 PEEP 5 FIO2 35%. TRACH IN PLACE AND SECURED. BACK UP TRACH AND AMBU BAG AT BEDSIDE. SUCTION SMALL AMOUNT THICK PALE YELLOW SECRETIONS. VENT CHECKED, ALARMS WORKING WELL AND AUDIBLE. NO DISTRESS NOTED AT THIS TIME. WILL CONTINUE TO MONITOR.
[2016-08-25 21:10] VITALS: BP 123/55
[2016-08-25] MEDS: FISH OIL GT SCH (21:45)
[2016-08-25] MEDS: [UNRECOGNIZED DRUG - OTHER] GT SCH (21:45)
[2016-08-25] MEDS: CALCIUM CARBONATE 500 MG TAB.CHEW GT SCH (21:45)
[2016-08-26] MEDS: BACLOFEN 10 MG TABLET GT SCH ×5 (00:34→23:19)
[2016-08-26] MEDS: BLOOD SUGAR DIAGNOSTIC 1 EACH STRIP VI SCH ×5 (00:34→23:19)
[2016-08-26] MEDS: INSULIN REGULAR, HUMAN 300 UNIT/3 ML VIAL SQ PRN ×5 (00:59→23:24)
[2016-08-26] MEDS: NUTRISOURCE FIBER 4 GM PACKET GT SCH ×3 (05:48→21:35)
[2016-08-26 08:00] VITALS: BP 105/63
--- NOTE | 2016-08-26 08:32 | NUR ---
PT RECEIVED ON HT-50 VENT, SETTINGS ARE AC 12, Vt 450, +5, 35% FIO2. PT TOLERATING CURRENT SETTINGS WELL, NO S\S OF RESPIRATORY DISTRESS NOTED. SHILEY 6 TRACH IS PATENT AND SECURED WITH TIES. SUCTIONED AND LAVAGED MODERATE AMOUNTS OF YELLOW THICK SECRETIONS. HME CHANGED, BVM AND BACK UP TRACH AT BEDSIDE. ALARMS ARE AND AUDIBLE, WILL CONTINUE TO MONITOR.
[2016-08-26] MEDS: ACIDOPHILUS/BULGARICUS CHEW TAB GT SCH ×2 (09:08→20:37)
[2016-08-26] MEDS: LEVETIRACETAM 500 MG/5 ML LIQUID UDC GT SCH ×2 (09:09→20:37)
[2016-08-26] MEDS: COD LIVER OIL/ZINC OXIDE OINT 113 GM TUBE TOP SCH ×2 (09:10→20:39)
[2016-08-26] MEDS: FUROSEMIDE 40 MG/4 ML GT SCH (09:10)
[2016-08-26] MEDS: FAMOTIDINE 20 MG TABLET GT SCH ×2 (09:10→20:37)
[2016-08-26] MEDS: PHENOBARBITAL GT SCH ×2 (09:10→20:37)
[2016-08-26] MEDS: VITAMINS A AND D OINT TP SCH (09:11)
[2016-08-26] MEDS: NYSTATIN CREAM 30 GM TUBE TP SCH ×2 (09:11→20:40)
[2016-08-26] MEDS: HYDROGEN PEROXIDE 3% 118 ML BOTTLE TP SCH ×2 (09:11→20:40)
[2016-08-26] MEDS: TRIAMCINOLONE ACET 0.1% CREAM 15 GM TUBE TP SCH ×2 (09:11→20:40)
[2016-08-26] MEDS: POTASSIUM CHLORIDE 20 MEQ TAB.PRT.SR XX SCH ×2 (09:12→17:44)
[2016-08-26] MEDS: INSULIN DETEMIR 300 UNIT/3 ML CARTRIDGE SQ SCH ×2 (09:17→21:35)
[2016-08-26] MEDS: FISH OIL GT SCH (20:37)
[2016-08-26] MEDS: [UNRECOGNIZED DRUG - OTHER] GT SCH (20:37)
[2016-08-26] MEDS: CALCIUM CARBONATE 500 MG TAB.CHEW GT SCH (20:37)
[2016-08-26 22:19] VITALS: BP 111/56
--- NOTE | 2016-08-27 02:10 | NUR ---
PT ON CONT HT 50 VENT [address] AND SECURED, WITH SAME CURRENT VENT SETTINGS, PT DOES ASSIST AT TIMES, WITH GOOD COUGH EFFORT, SUCTIONED LIGHT PALE YELL TINGE SECRETIONS, CHANGE HME AND PASCUAL, CHECK CUFF, ALL ALARMS OK, AMBU BAG AT BEDSIDE, NO VENT CHANGES MADE AT THIS TIME.Andi FERGUSON RCP Addendum: 08/27/16 at 0212 by ETHEL FERGUSON RT Amended: Links added.
[2016-08-27] MEDS: NUTRISOURCE FIBER 4 GM PACKET GT SCH ×3 (05:07→21:30)
[2016-08-27] MEDS: BACLOFEN 10 MG TABLET GT SCH ×4 (05:07→23:56)
[2016-08-27] MEDS: BLOOD SUGAR DIAGNOSTIC 1 EACH STRIP VI SCH ×4 (05:07→23:56)
[2016-08-27] MEDS: INSULIN REGULAR, HUMAN 300 UNIT/3 ML VIAL SQ PRN ×3 (05:08→17:53)
--- NOTE | 2016-08-27 08:20 | NUR ---
PT RECEIVED ON HT-50 VENT, SETTINGS ARE AC 12, Vt 450, +5, 35% FIO2. PT TOLERATING CURRENT SETTINGS WELL, NO S\S OF RESPIRATORY DISTRESS NOTED. SHILEY 6 TRACH IS PATENT AND SECURED WITH TIES. SUCTIONED MODERATE AMOUNTS OF YELLOW THICK SECRETIONS. HME CHANGED, BVM AND BACK UP TRACH AT BEDSIDE. ALARMS ARE AND AUDIBLE, WILL CONTINUE TO MONITOR.
[2016-08-27] MEDS: VITAMINS A AND D OINT TP SCH (09:00)
[2016-08-27] MEDS: PHENOBARBITAL GT SCH ×2 (09:00→21:29)
[2016-08-27] MEDS: FUROSEMIDE 40 MG/4 ML GT SCH (09:00)
[2016-08-27] MEDS: NYSTATIN CREAM 30 GM TUBE TP SCH ×2 (09:00→21:30)
[2016-08-27] MEDS: LEVETIRACETAM 500 MG/5 ML LIQUID UDC GT SCH ×2 (09:00→21:29)
[2016-08-27] MEDS: FAMOTIDINE 20 MG TABLET GT SCH ×2 (09:00→21:29)
[2016-08-27] MEDS: POTASSIUM CHLORIDE 20 MEQ TAB.PRT.SR XX SCH ×2 (09:00→17:02)
[2016-08-27] MEDS: ACIDOPHILUS/BULGARICUS CHEW TAB GT SCH ×2 (09:00→21:29)
[2016-08-27] MEDS: HYDROGEN PEROXIDE 3% 118 ML BOTTLE TP SCH ×2 (09:00→21:30)
[2016-08-27] MEDS: TRIAMCINOLONE ACET 0.1% CREAM 15 GM TUBE TP SCH ×2 (09:00→21:30)
[2016-08-27] MEDS: COD LIVER OIL/ZINC OXIDE OINT 113 GM TUBE TOP SCH ×2 (09:00→21:30)
[2016-08-27] MEDS: INSULIN DETEMIR 300 UNIT/3 ML CARTRIDGE SQ SCH ×2 (10:00→20:53)
[2016-08-27] MEDS: [UNRECOGNIZED DRUG - OTHER] GT SCH (21:29)
[2016-08-27] MEDS: CALCIUM CARBONATE 500 MG TAB.CHEW GT SCH (21:29)
[2016-08-27] MEDS: FISH OIL GT SCH (21:29)
[2016-08-27 22:01] VITALS: BP 108/56
--- NOTE | 2016-08-27 22:34 | NUR ---
PT ON CONT HT 50 VENT WITH SHILEY # [address] AND SECURED, WITH SAME CURRENT VENT SETTINGS, PT DOES ASSIST AT TIMES, SUCTIONED LIGHT PALE YELL TINGE SECRETIONS, WITH GOOD COUGH EFFORT, CHECK CUFF, CHANGE HME, PIP 31-35 CM APPROX. ALL ALARMS OK, AMBU BAG AT BEDSIDE, NO VENT CHANGES MADE AT THIS TIME, PT STABLE. Andi CHAKRABORTYP Addendum: 08/27/16 at 2236 by ETHEL FERGUSON RT Amended: Links added.
[2016-08-28] MEDS: DIABETICSOURCE AC 1000ML LIQUID GT PRN (01:28)
[2016-08-28] MEDS: BACLOFEN 10 MG TABLET GT SCH ×3 (05:45→17:26)
[2016-08-28] MEDS: NUTRISOURCE FIBER 4 GM PACKET GT SCH ×3 (05:45→21:07)
[2016-08-28] MEDS: BLOOD SUGAR DIAGNOSTIC 1 EACH STRIP VI SCH ×3 (05:46→17:43)
[2016-08-28] MEDS: INSULIN REGULAR, HUMAN 300 UNIT/3 ML VIAL SQ PRN ×4 (05:48→17:46)
[2016-08-28 08:00] VITALS: BP 116/65
[2016-08-28] MEDS: COD LIVER OIL/ZINC OXIDE OINT 113 GM TUBE TOP SCH ×2 (09:00→20:54)
[2016-08-28] MEDS: NYSTATIN CREAM 30 GM TUBE TP SCH ×2 (09:00→20:54)
[2016-08-28] MEDS: PHENOBARBITAL GT SCH ×2 (09:00→20:54)
[2016-08-28] MEDS: VITAMINS A AND D OINT TP SCH (09:00)
[2016-08-28] MEDS: ACIDOPHILUS/BULGARICUS CHEW TAB GT SCH ×2 (09:00→20:53)
[2016-08-28] MEDS: TRIAMCINOLONE ACET 0.1% CREAM 15 GM TUBE TP SCH ×2 (09:00→20:54)
[2016-08-28] MEDS: POTASSIUM CHLORIDE 20 MEQ TAB.PRT.SR XX SCH ×2 (09:00→17:26)
[2016-08-28] MEDS: LEVETIRACETAM 500 MG/5 ML LIQUID UDC GT SCH ×2 (09:00→20:53)
[2016-08-28] MEDS: HYDROGEN PEROXIDE 3% 118 ML BOTTLE TP SCH ×2 (09:00→20:54)
[2016-08-28] MEDS: FAMOTIDINE 20 MG TABLET GT SCH ×2 (09:00→20:54)
[2016-08-28] MEDS: INSULIN DETEMIR 300 UNIT/3 ML CARTRIDGE SQ SCH ×2 (09:00→21:06)
[2016-08-28] MEDS: FUROSEMIDE 40 MG/4 ML GT SCH (09:00)
--- NOTE | 2016-08-28 09:30 | NUR ---
Seen by Kasey Cowan with no new order.
--- NOTE | 2016-08-28 20:19 | NUR ---
Received pt on HT-50 vent with the following settings of AC-12, Vt-450, PEEP+5, FIO2-35%, trached with Shiley#6 DCT trach, which is in the place and secure. No s/s of respiratory distress noted. Airway care done, pt responded to physical stimuli. Resus. bag and back up trach at bedside. Vent and alarms checked and reset.
[2016-08-28] MEDS: [UNRECOGNIZED DRUG - OTHER] GT SCH (20:53)
[2016-08-28] MEDS: FISH OIL GT SCH (20:53)
[2016-08-28] MEDS: CALCIUM CARBONATE 500 MG TAB.CHEW GT SCH (20:54)
[2016-08-28 23:15] VITALS: BP 117/72
[2016-08-29] MEDS: BACLOFEN 10 MG TABLET GT SCH ×4 (00:23→18:13)
[2016-08-29] MEDS: BLOOD SUGAR DIAGNOSTIC 1 EACH STRIP VI SCH ×4 (00:23→18:15)
[2016-08-29] MEDS: INSULIN REGULAR, HUMAN 300 UNIT/3 ML VIAL SQ PRN ×2 (00:46→05:43)
[2016-08-29] MEDS: NUTRISOURCE FIBER 4 GM PACKET GT SCH ×3 (05:41→21:28)
[2016-08-29] MEDS: DIABETICSOURCE AC 1000ML LIQUID GT PRN (06:32)
--- NOTE | 2016-08-29 07:45 | NUR ---
Pt received in semi diaz position, has limited response to verbal stimuli, and is on Continuous mechanical ventilation via trach. Pt is on Taurus HT-50 vent with settings of A/C-12, VT-450, PEEP +5, FIO2-35%. Trach is a Mod[employer] Indoor Skate [place]ley 6 DCT. Trach is patent and secure. No irritation or redness noted around stoma or trach tie. Tolerating vent settings well. SpO2-98%. HME changed. PPE used. Vent alarm parameters checked, on and audible. Vent plugged into red emergency outlet. Bag/valve/mask and back up trach bedside. Will continue to monitor.
[2016-08-29 08:00] VITALS: BP 137/68
[2016-08-29] MEDS: INSULIN DETEMIR 300 UNIT/3 ML CARTRIDGE SQ SCH ×2 (08:43→21:29)
[2016-08-29] MEDS: ACIDOPHILUS/BULGARICUS CHEW TAB GT SCH ×2 (08:44→21:27)
[2016-08-29] MEDS: LEVETIRACETAM 500 MG/5 ML LIQUID UDC GT SCH ×2 (08:45→21:27)
[2016-08-29] MEDS: FUROSEMIDE 40 MG/4 ML GT SCH (08:45)
[2016-08-29] MEDS: PHENOBARBITAL GT SCH ×2 (08:47→21:27)
[2016-08-29] MEDS: COD LIVER OIL/ZINC OXIDE OINT 113 GM TUBE TOP SCH ×2 (08:47→21:27)
[2016-08-29] MEDS: FAMOTIDINE 20 MG TABLET GT SCH ×2 (08:47→21:27)
[2016-08-29] MEDS: HYDROGEN PEROXIDE 3% 118 ML BOTTLE TP SCH ×2 (08:47→21:28)
[2016-08-29] MEDS: TRIAMCINOLONE ACET 0.1% CREAM 15 GM TUBE TP SCH ×2 (08:48→21:28)
[2016-08-29] MEDS: NYSTATIN CREAM 30 GM TUBE TP SCH ×2 (08:48→21:28)
[2016-08-29] MEDS: POTASSIUM CHLORIDE 20 MEQ TAB.PRT.SR XX SCH ×2 (08:48→17:00)
[2016-08-29] MEDS: VITAMINS A AND D OINT TP SCH (08:48)
--- NOTE | 2016-08-29 12:00 | NUR ---
SEEN BY HARSH FULLER.
--- NOTE | 2016-08-29 13:00 | NUR ---
SEEN BY DENISE FULLER.
--- NOTE | 2016-08-29 20:19 | NUR ---
Pt received on HT-50 vent with the following settings of AC-12, Vt-450, PEEP+5, FIO2-35%, trached with Shiley#6 DCT trach, which is in the place and secure. No s/s of respiratory distress noted. Airway care done, pt responded to physical stimuli. Resus. bag and back up trach at bedside. Vent and alarms on and audible.
[2016-08-29 21:12] VITALS: BP 134/70
[2016-08-29] MEDS: FISH OIL GT SCH (21:27)
[2016-08-29] MEDS: [UNRECOGNIZED DRUG - OTHER] GT SCH (21:27)
[2016-08-29] MEDS: CALCIUM CARBONATE 500 MG TAB.CHEW GT SCH (21:27)
[2016-08-30] MEDS: BLOOD SUGAR DIAGNOSTIC 1 EACH STRIP VI SCH ×4 (00:44→17:05)
[2016-08-30] MEDS: BACLOFEN 10 MG TABLET GT SCH ×4 (00:44→17:05)
[2016-08-30] MEDS: INSULIN REGULAR, HUMAN 300 UNIT/3 ML VIAL SQ PRN ×3 (00:51→17:06)
[2016-08-30] MEDS: NUTRISOURCE FIBER 4 GM PACKET GT SCH ×3 (05:44→21:28)
--- NOTE | 2016-08-30 07:34 | NUR ---
PATIENT RECEIVED ON CONTINUOUS MECHANICAL VENTILATION WITH TRACH PROPERLY SECURED AND INTACT. AIRWAY PATENT. PATIENT TOLERATING PRESCRIBED VENTILATOR SETTINGS FINE SHOWING NO EVIDENCE OF RESPIRATORY DISTRESS. BREATH SOUNDS RHONCHI. PRN TRACHEAL SUCTIONED PERFORMED AND HAD MODERATE AMOUNT OF OFF WHITE YELLOWISH SEMI THICK SECRETIONS. PATIENT POSITIONED SEMI BROOKE WITH HEAD OF THE BED ELEVATED 35-45 DEGREE ANGLE. VENT ALARMS SET,AUDIBLE, AND WORKING. VENT PLUGGED INTO RED OUTLET. PT APPEARS COMFORTABLE.
[2016-08-30 08:00] VITALS: BP 103/53
[2016-08-30] MEDS: ACIDOPHILUS/BULGARICUS CHEW TAB GT SCH ×2 (09:27→21:27)
[2016-08-30] MEDS: LEVETIRACETAM 500 MG/5 ML LIQUID UDC GT SCH ×2 (09:27→21:27)
[2016-08-30] MEDS: FUROSEMIDE 40 MG/4 ML GT SCH (09:27)
[2016-08-30] MEDS: COD LIVER OIL/ZINC OXIDE OINT 113 GM TUBE TOP SCH ×2 (09:28→21:28)
[2016-08-30] MEDS: TRIAMCINOLONE ACET 0.1% CREAM 15 GM TUBE TP SCH ×2 (09:28→21:28)
[2016-08-30] MEDS: NYSTATIN CREAM 30 GM TUBE TP SCH ×2 (09:28→21:28)
[2016-08-30] MEDS: PHENOBARBITAL GT SCH ×2 (09:28→21:27)
[2016-08-30] MEDS: FAMOTIDINE 20 MG TABLET GT SCH ×2 (09:28→21:27)
[2016-08-30] MEDS: HYDROGEN PEROXIDE 3% 118 ML BOTTLE TP SCH ×2 (09:28→21:28)
[2016-08-30] MEDS: POTASSIUM CHLORIDE 20 MEQ TAB.PRT.SR XX SCH ×2 (09:29→17:05)
[2016-08-30] MEDS: VITAMINS A AND D OINT TP SCH (09:29)
[2016-08-30] MEDS: INSULIN DETEMIR 300 UNIT/3 ML CARTRIDGE SQ SCH ×2 (09:34→21:27)
[2016-08-30] MEDS: DIABETICSOURCE AC 1000ML LIQUID GT PRN (16:15)
--- NOTE | 2016-08-30 17:55 | NUR ---
SEEN AND EXAMINED BY DR BARNETT,WITH NO NEW ORDERS NOTED.
[2016-08-30] MEDS: CALCIUM CARBONATE 500 MG TAB.CHEW GT SCH (21:27)
[2016-08-30] MEDS: FISH OIL GT SCH (21:28)
[2016-08-30] MEDS: [UNRECOGNIZED DRUG - OTHER] GT SCH (21:28)
[2016-08-30 23:19] VITALS: BP 100/70
[2016-08-31] MEDS: INSULIN REGULAR, HUMAN 300 UNIT/3 ML VIAL SQ PRN ×4 (00:10→17:38)
[2016-08-31] MEDS: BLOOD SUGAR DIAGNOSTIC 1 EACH STRIP VI SCH ×4 (00:10→17:34)
[2016-08-31] MEDS: BACLOFEN 10 MG TABLET GT SCH ×4 (00:10→17:34)
--- NOTE | 2016-08-31 02:03 | NUR ---
PT ON CONT HT 50 VENT WITH SHILEY # [address] AND SECURED, WITH SAME CURRENT VENT SETTINGS, WITH GOOD COUGH EFFORT, PT DOES ASSIST AT TIMES, CHECK CUFF, CHANGE HME, SUCTIONED LIGHT PALE YELL TINGE SECRETIONS, WITH NO VENT CHANGES MADE AT THIS TIME,ALL ALARMS OK, AMBU BAG AT BEDSIDE.Andi CHAKRABORTYP Addendum: 08/31/16 at 0204 by ETHEL FERGUSON RT Amended: Links added.
[2016-08-31] MEDS: NUTRISOURCE FIBER 4 GM PACKET GT SCH ×3 (05:20→21:00)
--- NOTE | 2016-08-31 07:44 | NUR ---
Trached patient was endorsed on mechanical ventilation with ordered vent settings AC 12 VT 450 PEEP 5 FIO2 35%. No signs or symptoms of respiratory distress noted at this time. She is trached with a shiley #6 DCT; LABORER GENERAL used for cuff inflation. HME was changed without complications. Ambubag and spare trach are at bedside. Will continue to monitor
[2016-08-31 08:00] VITALS: BP 115/63
[2016-08-31] MEDS: LEVETIRACETAM 500 MG/5 ML LIQUID UDC GT SCH ×2 (09:03→20:49)
[2016-08-31] MEDS: ACIDOPHILUS/BULGARICUS CHEW TAB GT SCH ×2 (09:03→20:49)
[2016-08-31] MEDS: PHENOBARBITAL GT SCH ×2 (09:04→20:50)
[2016-08-31] MEDS: FUROSEMIDE 40 MG/4 ML GT SCH (09:04)
[2016-08-31] MEDS: FAMOTIDINE 20 MG TABLET GT SCH ×2 (09:04→20:50)
[2016-08-31] MEDS: COD LIVER OIL/ZINC OXIDE OINT 113 GM TUBE TOP SCH ×2 (09:05→20:58)
[2016-08-31] MEDS: HYDROGEN PEROXIDE 3% 118 ML BOTTLE TP SCH ×2 (09:05→20:58)
[2016-08-31] MEDS: NYSTATIN CREAM 30 GM TUBE TP SCH ×2 (09:05→20:58)
[2016-08-31] MEDS: POTASSIUM CHLORIDE 20 MEQ TAB.PRT.SR XX SCH ×2 (09:05→17:33)
[2016-08-31] MEDS: TRIAMCINOLONE ACET 0.1% CREAM 15 GM TUBE TP SCH ×2 (09:05→20:58)
[2016-08-31] MEDS: VITAMINS A AND D OINT TP SCH (09:05)
[2016-08-31] MEDS: INSULIN DETEMIR 300 UNIT/3 ML CARTRIDGE SQ SCH ×2 (09:06→20:54)
[2016-08-31] MEDS: DIABETICSOURCE AC 1000ML LIQUID GT PRN (14:01)
--- NOTE | 2016-08-31 19:35 | NUR ---
Pt received in semi diaz position, has limited response to verbal stimuli, and is on Continuous mechanical ventilation via trach. Pt is on Taurus HT-50 vent with settings of A/C-12, VT-450, PEEP +5, FIO2-35%. Trach is a [place]riadley 6 DCT. Trach is patent and secure. No irritation or redness noted around stoma or trach tie. Tolerating vent settings well. SpO2-97%. HME changed. PPE used. Vent alarm parameters checked, on and audible. Vent plugged into red emergency outlet. Bag/valve/mask and back up trach bedside. Will continue to monitor.
[2016-08-31] MEDS: [UNRECOGNIZED DRUG - OTHER] GT SCH (20:50)
[2016-08-31] MEDS: FISH OIL GT SCH (20:50)
[2016-08-31] MEDS: CALCIUM CARBONATE 500 MG TAB.CHEW GT SCH (20:52)
[2016-08-31 22:48] VITALS: BP 128/71
[2016-09-01] MEDS: BLOOD SUGAR DIAGNOSTIC 1 EACH STRIP VI SCH ×5 (00:22→23:42)
[2016-09-01] MEDS: BACLOFEN 10 MG TABLET GT SCH ×5 (00:22→23:42)
[2016-09-01] MEDS: INSULIN REGULAR, HUMAN 300 UNIT/3 ML VIAL SQ PRN ×4 (00:23→23:43)
[2016-09-01] MEDS: NUTRISOURCE FIBER 4 GM PACKET GT SCH ×3 (05:47→21:08)
[2016-09-01 08:00] VITALS: BP 103/60
[2016-09-01] MEDS: ACIDOPHILUS/BULGARICUS CHEW TAB GT SCH ×2 (08:32→21:06)
[2016-09-01] MEDS: LEVETIRACETAM 500 MG/5 ML LIQUID UDC GT SCH ×2 (08:32→21:06)
[2016-09-01] MEDS: FAMOTIDINE 20 MG TABLET GT SCH ×2 (08:35→21:07)
[2016-09-01] MEDS: INSULIN DETEMIR 300 UNIT/3 ML CARTRIDGE SQ SCH ×2 (08:35→21:08)
[2016-09-01] MEDS: PHENOBARBITAL GT SCH ×2 (08:35→21:07)
[2016-09-01] MEDS: FUROSEMIDE 40 MG/4 ML GT SCH (08:35)
[2016-09-01] MEDS: VITAMINS A AND D OINT TP SCH (08:37)
[2016-09-01] MEDS: HYDROGEN PEROXIDE 3% 118 ML BOTTLE TP SCH ×2 (08:37→21:07)
[2016-09-01] MEDS: COD LIVER OIL/ZINC OXIDE OINT 113 GM TUBE TOP SCH ×2 (08:37→21:07)
[2016-09-01] MEDS: TRIAMCINOLONE ACET 0.1% CREAM 15 GM TUBE TP SCH ×2 (08:37→21:07)
[2016-09-01] MEDS: POTASSIUM CHLORIDE 20 MEQ TAB.PRT.SR XX SCH ×2 (08:37→17:11)
[2016-09-01] MEDS: NYSTATIN CREAM 30 GM TUBE TP SCH ×2 (08:37→21:07)
[2016-09-01] MEDS: DIABETICSOURCE AC 1000ML LIQUID GT PRN (11:56)
--- NOTE | 2016-09-01 13:39 | NUR ---
SEEN AND EXAMINED BY DR HICKMAN,NO NEW ORDERS.
--- NOTE | 2016-09-01 14:30 | NUR ---
SW assisted patient's father with completing an order form from [employer] to purchase personal items for patient. ESTEFANÍA faxed the order form to [employer] at [phone] (tel # [phone]).
--- NOTE | 2016-09-01 19:45 | NUR ---
Pt received in semi diaz position, has limited response to verbal stimuli, and is on Continuous mechanical ventilation via trach. Trach is a [place] 6 DCT. Trach is patent and secure. No irritation or redness noted around stoma or trach tie. Tolerating vent settings well. SpO2-98%. Pt is on Taurus HT-50 vent with settings of A/C-12, VT-450, PEEP +5, FIO2-35%. HME changed. PPE used. Vent alarm parameters checked, on and audible. Vent plugged into red emergency outlet. Bag/valve/mask and back up trach bedside. Will continue to monitor.
[2016-09-01] MEDS: FISH OIL GT SCH (21:06)
[2016-09-01] MEDS: [UNRECOGNIZED DRUG - OTHER] GT SCH (21:06)
[2016-09-01] MEDS: CALCIUM CARBONATE 500 MG TAB.CHEW GT SCH (21:07)
[2016-09-01 22:00] VITALS: BP 116/63
[2016-09-02] MEDS: NUTRISOURCE FIBER 4 GM PACKET GT SCH ×3 (05:10→21:19)
[2016-09-02] MEDS: BLOOD SUGAR DIAGNOSTIC 1 EACH STRIP VI SCH ×3 (05:10→17:30)
[2016-09-02] MEDS: BACLOFEN 10 MG TABLET GT SCH ×3 (05:10→17:31)
[2016-09-02 08:00] VITALS: BP 114/66
[2016-09-02] MEDS: LEVETIRACETAM 500 MG/5 ML LIQUID UDC GT SCH ×2 (08:25→21:17)
[2016-09-02] MEDS: ACIDOPHILUS/BULGARICUS CHEW TAB GT SCH ×2 (08:25→21:17)
[2016-09-02] MEDS: FUROSEMIDE 40 MG/4 ML GT SCH (08:26)
[2016-09-02] MEDS: COD LIVER OIL/ZINC OXIDE OINT 113 GM TUBE TOP SCH ×2 (08:27→21:18)
[2016-09-02] MEDS: PHENOBARBITAL GT SCH ×2 (08:27→21:18)
[2016-09-02] MEDS: FAMOTIDINE 20 MG TABLET GT SCH ×2 (08:27→21:18)
[2016-09-02] MEDS: NYSTATIN CREAM 30 GM TUBE TP SCH ×2 (08:28→21:19)
[2016-09-02] MEDS: TRIAMCINOLONE ACET 0.1% CREAM 15 GM TUBE TP SCH ×2 (08:28→21:19)
[2016-09-02] MEDS: POTASSIUM CHLORIDE 20 MEQ TAB.PRT.SR XX SCH ×2 (08:28→17:29)
[2016-09-02] MEDS: VITAMINS A AND D OINT TP SCH (08:28)
[2016-09-02] MEDS: HYDROGEN PEROXIDE 3% 118 ML BOTTLE TP SCH ×2 (08:28→21:19)
[2016-09-02] MEDS: INSULIN DETEMIR 300 UNIT/3 ML CARTRIDGE SQ SCH ×2 (08:47→21:19)
[2016-09-02] MEDS: INSULIN REGULAR, HUMAN 300 UNIT/3 ML VIAL SQ PRN ×2 (12:24→17:30)
--- NOTE | 2016-09-02 20:02 | NUR ---
Received pt on HT-50 vent with the following settings of AC-12, Vt-450, PEEP+5, FIO2-35%, trached with Shiley#6 DCT trach, which is in the place and secure. No sob noted. Airway care done, pt responded to physical stimuli. Resus. bag and back up trach at bedside. Vent and alarms on and audible.
[2016-09-02] MEDS: FISH OIL GT SCH (21:18)
[2016-09-02] MEDS: [UNRECOGNIZED DRUG - OTHER] GT SCH (21:18)
[2016-09-02] MEDS: CALCIUM CARBONATE 500 MG TAB.CHEW GT SCH (21:18)
[2016-09-02 22:48] VITALS: BP 98/56
[2016-09-03] MEDS: BLOOD SUGAR DIAGNOSTIC 1 EACH STRIP VI SCH ×4 (00:09→17:21)
[2016-09-03] MEDS: BACLOFEN 10 MG TABLET GT SCH ×4 (00:09→17:20)
[2016-09-03] MEDS: INSULIN REGULAR, HUMAN 300 UNIT/3 ML VIAL SQ PRN ×3 (00:10→17:21)
[2016-09-03] MEDS: NUTRISOURCE FIBER 4 GM PACKET GT SCH ×3 (05:26→21:34)
[2016-09-03] MEDS: FUROSEMIDE 40 MG/4 ML GT SCH (09:15)
[2016-09-03] MEDS: PHENOBARBITAL GT SCH ×2 (09:15→20:44)
[2016-09-03] MEDS: LEVETIRACETAM 500 MG/5 ML LIQUID UDC GT SCH ×2 (09:15→20:28)
[2016-09-03] MEDS: FAMOTIDINE 20 MG TABLET GT SCH ×2 (09:15→20:30)
[2016-09-03] MEDS: ACIDOPHILUS/BULGARICUS CHEW TAB GT SCH ×2 (09:15→20:28)
[2016-09-03] MEDS: COD LIVER OIL/ZINC OXIDE OINT 113 GM TUBE TOP SCH ×2 (09:16→20:30)
[2016-09-03] MEDS: POTASSIUM CHLORIDE 20 MEQ TAB.PRT.SR XX SCH ×2 (09:16→17:20)
[2016-09-03] MEDS: NYSTATIN CREAM 30 GM TUBE TP SCH ×2 (09:16→20:31)
[2016-09-03] MEDS: HYDROGEN PEROXIDE 3% 118 ML BOTTLE TP SCH ×2 (09:16→20:30)
[2016-09-03] MEDS: TRIAMCINOLONE ACET 0.1% CREAM 15 GM TUBE TP SCH ×2 (09:16→20:31)
[2016-09-03] MEDS: VITAMINS A AND D OINT TP SCH (09:16)
[2016-09-03] MEDS: INSULIN DETEMIR 300 UNIT/3 ML CARTRIDGE SQ SCH ×2 (09:19→20:37)
[2016-09-03 11:18] VITALS: BP 115/67
[2016-09-03] MEDS: [UNRECOGNIZED DRUG - OTHER] GT SCH (20:28)
[2016-09-03] MEDS: FISH OIL GT SCH (20:28)
[2016-09-03] MEDS: CALCIUM CARBONATE 500 MG TAB.CHEW GT SCH (20:30)
[2016-09-03 23:14] VITALS: BP 117/56
[2016-09-04] MEDS: BACLOFEN 10 MG TABLET GT SCH ×4 (00:53→17:14)
[2016-09-04] MEDS: BLOOD SUGAR DIAGNOSTIC 1 EACH STRIP VI SCH ×4 (00:53→17:14)
[2016-09-04] MEDS: INSULIN REGULAR, HUMAN 300 UNIT/3 ML VIAL SQ PRN ×4 (00:58→17:16)
[2016-09-04] MEDS: NUTRISOURCE FIBER 4 GM PACKET GT SCH ×3 (02:00→21:20)
[2016-09-04] MEDS: FUROSEMIDE 40 MG/4 ML GT SCH (08:16)
[2016-09-04] MEDS: HYDROGEN PEROXIDE 3% 118 ML BOTTLE TP SCH ×2 (08:16→21:20)
[2016-09-04] MEDS: FAMOTIDINE 20 MG TABLET GT SCH ×2 (08:16→21:18)
[2016-09-04] MEDS: POTASSIUM CHLORIDE 20 MEQ TAB.PRT.SR XX SCH ×2 (08:16→17:14)
[2016-09-04] MEDS: ACIDOPHILUS/BULGARICUS CHEW TAB GT SCH ×2 (08:16→21:18)
[2016-09-04] MEDS: LEVETIRACETAM 500 MG/5 ML LIQUID UDC GT SCH ×2 (08:16→21:18)
[2016-09-04] MEDS: NYSTATIN CREAM 30 GM TUBE TP SCH (08:19)
[2016-09-04] MEDS: COD LIVER OIL/ZINC OXIDE OINT 113 GM TUBE TOP SCH ×2 (08:19→21:20)
[2016-09-04] MEDS: VITAMINS A AND D OINT TP SCH (08:19)
[2016-09-04] MEDS: TRIAMCINOLONE ACET 0.1% CREAM 15 GM TUBE TP SCH ×2 (08:19→21:20)
[2016-09-04] MEDS: PHENOBARBITAL GT SCH ×2 (08:25→21:18)
[2016-09-04] MEDS: INSULIN DETEMIR 300 UNIT/3 ML CARTRIDGE SQ SCH ×2 (08:29→21:54)
--- NOTE | 2016-09-04 09:03 | NUR ---
SEEN AND EXAMINED BY ROHAN COLLAZO,NO NEW ORDERS NOTED.
--- NOTE | 2016-09-04 13:11 | NUR ---
SEEN AND EXAMINED BY DYLAN COLLAZO,NO NEW ORDERS NOTED.
[2016-09-04 14:39] VITALS: BP 102/66
--- NOTE | 2016-09-04 19:50 | NUR ---
RECEIVED ON CONTINUOUS VENT AC 12 VT 450 PEEP 5 FIO2 35%. TRACH IN PLACE AND SECURED. BACK UP TRACH AND BVM AT BEDSIDE. SUCTION SMALL AMOUNT THICK PALE YELLOW SECRETIONS. VENT CHECKED, ALARMS WORKING WELL AND AUDIBLE. NO DISTRESS NOTED AT THIS TIME. WILL CONTINUE TO MONITOR.
[2016-09-04] MEDS: [UNRECOGNIZED DRUG - OTHER] GT SCH (21:18)
[2016-09-04] MEDS: FISH OIL GT SCH (21:18)
[2016-09-04] MEDS: CALCIUM CARBONATE 500 MG TAB.CHEW GT SCH (21:19)
[2016-09-05] MEDS: BACLOFEN 10 MG TABLET GT SCH ×4 (00:38→17:33)
[2016-09-05] MEDS: BLOOD SUGAR DIAGNOSTIC 1 EACH STRIP VI SCH ×4 (00:38→17:33)
[2016-09-05] MEDS: INSULIN REGULAR, HUMAN 300 UNIT/3 ML VIAL SQ PRN ×3 (00:41→11:56)
[2016-09-05 02:09] VITALS: BP 101/51
[2016-09-05] MEDS: DIABETICSOURCE AC 1000ML LIQUID GT PRN (02:49)
[2016-09-05] MEDS: NUTRISOURCE FIBER 4 GM PACKET GT SCH ×3 (05:34→21:30)
[2016-09-05 08:00] VITALS: BP 114/64
--- NOTE | 2016-09-05 08:12 | NUR ---
Trached patient was endorsed on mechanical ventilation with ordered vent settings AC 12 VT 450 PEEP 5 FIO2 35%. No signs or symptoms of respiratory distress noted at this time. She is trached with a shiley #6 DCT; SILK FINISHER used for cuff inflation. HME was changed without complications. Ambubag and spare trach are at bedside. Will continue to monitor
[2016-09-05] MEDS: LEVETIRACETAM 500 MG/5 ML LIQUID UDC GT SCH ×2 (08:50→21:28)
[2016-09-05] MEDS: FAMOTIDINE 20 MG TABLET GT SCH ×2 (08:50→21:28)
[2016-09-05] MEDS: FUROSEMIDE 40 MG/4 ML GT SCH (08:50)
[2016-09-05] MEDS: ACIDOPHILUS/BULGARICUS CHEW TAB GT SCH ×2 (08:50→21:28)
[2016-09-05] MEDS: PHENOBARBITAL GT SCH ×2 (08:50→21:28)
--- NOTE | 2016-09-05 08:51 | NUR ---
SEEN BY DENISE FULLER.
[2016-09-05] MEDS: POTASSIUM CHLORIDE 20 MEQ TAB.PRT.SR XX SCH ×2 (08:56→17:33)
[2016-09-05] MEDS: COD LIVER OIL/ZINC OXIDE OINT 113 GM TUBE TOP SCH ×2 (08:56→21:29)
[2016-09-05] MEDS: VITAMINS A AND D OINT TP SCH (08:56)
[2016-09-05] MEDS: INSULIN DETEMIR 300 UNIT/3 ML CARTRIDGE SQ SCH ×2 (08:56→21:29)
[2016-09-05] MEDS: TRIAMCINOLONE ACET 0.1% CREAM 15 GM TUBE TP SCH ×2 (08:56→21:29)
[2016-09-05] MEDS: HYDROGEN PEROXIDE 3% 118 ML BOTTLE TP SCH ×2 (08:56→21:29)
[2016-09-05 20:59] VITALS: BP 102/62
[2016-09-05] MEDS: CALCIUM CARBONATE 500 MG TAB.CHEW GT SCH (21:28)
[2016-09-05] MEDS: [UNRECOGNIZED DRUG - OTHER] GT SCH (21:28)
[2016-09-05] MEDS: FISH OIL GT SCH (21:28)
[2016-09-05] MEDS: NYSTATIN CREAM 30 GM TUBE TP SCH (21:30)
[2016-09-06] MEDS: BLOOD SUGAR DIAGNOSTIC 1 EACH STRIP VI SCH ×4 (00:49→17:23)
[2016-09-06] MEDS: BACLOFEN 10 MG TABLET GT SCH ×4 (00:49→17:23)
[2016-09-06] MEDS: INSULIN REGULAR, HUMAN 300 UNIT/3 ML VIAL SQ PRN ×3 (00:50→17:24)
[2016-09-06] MEDS: DIABETICSOURCE AC 1000ML LIQUID GT PRN (03:49)
[2016-09-06] MEDS: NUTRISOURCE FIBER 4 GM PACKET GT SCH ×3 (05:32→21:07)
--- NOTE | 2016-09-06 07:25 | NUR ---
PT WAS RECEIVED ON HT-50 VENT WITH SETTINGS AC12, VT450, PEEP +5, FIO2 35%. PT TRACH SECURED AND INTACT WITH TIE. PT TRACH SIZE SHILEY 6. PT HME WAS CHANGED. PT VENT CIRCUIT WAS CHANGED AND TESTED. PT SUCTION WITH SMALL AMOUNT OF SECRETION OBTAIN. PT AT THIS TIME HAS NO DISTRESS AND TOLERATING VENT WELL. PT AMBU-BAG AND BACK UP TRACH AT BED SIDE. VENT ALARMS ON AND AUDIBLE. WILL CONTINUE TO MONITOR PT THROUGHOUT SHIFT.
[2016-09-06 08:00] VITALS: BP 104/61
[2016-09-06] MEDS: ACIDOPHILUS/BULGARICUS CHEW TAB GT SCH ×2 (09:08→21:01)
[2016-09-06] MEDS: FUROSEMIDE 40 MG/4 ML GT SCH (09:10)
[2016-09-06] MEDS: LEVETIRACETAM 500 MG/5 ML LIQUID UDC GT SCH ×2 (09:10→21:01)
[2016-09-06] MEDS: FAMOTIDINE 20 MG TABLET GT SCH ×2 (09:11→21:01)
[2016-09-06] MEDS: COD LIVER OIL/ZINC OXIDE OINT 113 GM TUBE TOP SCH ×2 (09:11→21:07)
[2016-09-06] MEDS: HYDROGEN PEROXIDE 3% 118 ML BOTTLE TP SCH ×2 (09:11→21:07)
[2016-09-06] MEDS: PHENOBARBITAL GT SCH ×2 (09:11→21:01)
[2016-09-06] MEDS: TRIAMCINOLONE ACET 0.1% CREAM 15 GM TUBE TP SCH ×2 (09:12→21:07)
[2016-09-06] MEDS: POTASSIUM CHLORIDE 20 MEQ TAB.PRT.SR XX SCH ×2 (09:12→17:19)
[2016-09-06] MEDS: VITAMINS A AND D OINT TP SCH (09:12)
[2016-09-06] MEDS: NYSTATIN CREAM 30 GM TUBE TP SCH ×2 (09:12→21:07)
[2016-09-06] MEDS: INSULIN DETEMIR 300 UNIT/3 ML CARTRIDGE SQ SCH ×2 (09:22→21:07)
--- NOTE | 2016-09-06 18:25 | NUR ---
SEEN AND EXAMINED BY DR BARNETT,NO NEW ORDERS.
--- NOTE | 2016-09-06 20:46 | NUR ---
Pt rec'd on Taurus HT-50 settings of A/C 12, VT 450, PEEP+5 and FIO2-35%. Shiley 6 patent and secure; B/U Shiley 6 and BVM at [facility]. No resp. distress noted at this time. Pt to be monitored throughout the shift and PRN SX. HT-50 alarm parameters have been checked and remain audible.
[2016-09-06] MEDS: [UNRECOGNIZED DRUG - OTHER] GT SCH (21:01)
[2016-09-06] MEDS: FISH OIL GT SCH (21:01)
[2016-09-06] MEDS: CALCIUM CARBONATE 500 MG TAB.CHEW GT SCH (21:02)
[2016-09-06 21:47] VITALS: BP 103/59
--- NOTE | 2016-09-06 23:00 | NUR ---
Seen and examined by VALE Lomax with no new orders.
[2016-09-07] MEDS: INSULIN REGULAR, HUMAN 300 UNIT/3 ML VIAL SQ PRN ×3 (00:11→17:08)
[2016-09-07] MEDS: BACLOFEN 10 MG TABLET GT SCH ×4 (00:11→17:07)
[2016-09-07] MEDS: BLOOD SUGAR DIAGNOSTIC 1 EACH STRIP VI SCH ×4 (00:11→17:07)
--- NOTE | 2016-09-07 01:30 | NUR ---
Noted with redness around GT site , no drainage noted, initiated in -house treatment with triple antibiotic ointment every shift X 14 days.
[2016-09-07] MEDS: NEOMY/BACITRAC/POLYMI OINT 28.35 GM TUBE TOP SCH ×3 (02:00→21:05)
[2016-09-07] MEDS: NUTRISOURCE FIBER 4 GM PACKET GT SCH ×3 (05:32→21:05)
[2016-09-07 08:00] VITALS: BP 118/68
[2016-09-07] MEDS: FUROSEMIDE 40 MG/4 ML GT SCH (08:13)
[2016-09-07] MEDS: LEVETIRACETAM 500 MG/5 ML LIQUID UDC GT SCH ×2 (08:13→21:01)
[2016-09-07] MEDS: ACIDOPHILUS/BULGARICUS CHEW TAB GT SCH ×2 (08:13→21:00)
[2016-09-07] MEDS: FAMOTIDINE 20 MG TABLET GT SCH ×2 (08:14→21:02)
[2016-09-07] MEDS: PHENOBARBITAL GT SCH ×2 (08:14→21:02)
[2016-09-07] MEDS: INSULIN DETEMIR 300 UNIT/3 ML CARTRIDGE SQ SCH ×2 (08:14→21:03)
[2016-09-07] MEDS: TRIAMCINOLONE ACET 0.1% CREAM 15 GM TUBE TP SCH ×2 (08:15→21:05)
[2016-09-07] MEDS: COD LIVER OIL/ZINC OXIDE OINT 113 GM TUBE TOP SCH ×2 (08:15→21:05)
[2016-09-07] MEDS: NYSTATIN CREAM 30 GM TUBE TP SCH ×2 (08:15→21:05)
[2016-09-07] MEDS: HYDROGEN PEROXIDE 3% 118 ML BOTTLE TP SCH ×2 (08:15→21:05)
[2016-09-07] MEDS: VITAMINS A AND D OINT TP SCH (08:15)
[2016-09-07] MEDS: POTASSIUM CHLORIDE 20 MEQ TAB.PRT.SR XX SCH ×2 (08:16→17:07)
--- NOTE | 2016-09-07 09:18 | NUR ---
GT SITE SURROUNDING TISSUE NOTED RED AND HARSH Mcgarry AWARE AND WITH NEW ORDER CARRIED OUT FOR I.D CONSULTATION AND DR. HERBERT WAS PAGED.
[2016-09-07] MEDS: DIABETICSOURCE AC 1000ML LIQUID GT PRN (10:54)
[2016-09-07] MEDS: CALCIUM CARBONATE 500 MG TAB.CHEW GT SCH (21:02)
[2016-09-07] MEDS: [UNRECOGNIZED DRUG - OTHER] GT SCH (21:02)
[2016-09-07] MEDS: FISH OIL GT SCH (21:02)
[2016-09-07] MEDS ORDERED: VANCOMYCIN IV 1 G in PREMIXED 0 EACH IV SCH (22:00)
--- NOTE | 2016-09-07 22:00 | NUR ---
Seen and examined by Ramesh Becker NP with new orders for labs in am: CBC, CMP and Procalcitonin, Vancomycin pharmacy to dose X 14 days and meropenem 1 gram IVPB every 8 hours X 14 days for Gt site Cellulitis. Spoke with Cassie from [facility] with vancomycin dosing of vancomycin 1 gram IVPB every 12 hours X 14 days then do Vanco trough @0930 and BUN, Scr on 09/09/16, noted and carried out. Initiated IV antibiotic with no adverse reactions noted, handled patient gently, kept clean and comfortable.
[2016-09-07 23:26] VITALS: BP 109/62
--- NOTE | 2016-09-08 | NUR ---
Initiated meropenem 1 gram IVPB every 8 hours @ 0000, 0800 and 1600 for 14 days for Gt site Cellulitis, no adverse reactions noted.
[2016-09-08] MEDS: BACLOFEN 10 MG TABLET GT SCH ×4 (00:36→17:15)
[2016-09-08] MEDS: BLOOD SUGAR DIAGNOSTIC 1 EACH STRIP VI SCH ×4 (00:41→17:37)
[2016-09-08] MEDS: NUTRISOURCE FIBER 4 GM PACKET GT SCH ×3 (05:42→21:31)
[2016-09-08] MEDS ORDERED: MEROPENEM 1 G in IV NORMAL SALINE 100 ML IV SCH ×5 (06:00)
--- NOTE | 2016-09-08 06:00 | NUR ---
Next meropenem dose will be at 0800 since last dose was given at 0000.
[2016-09-08 08:00] VITALS: BP 104/52
[2016-09-08] MEDS: INSULIN DETEMIR 300 UNIT/3 ML CARTRIDGE SQ SCH ×2 (08:03→21:27)
[2016-09-08] MEDS: LEVETIRACETAM 500 MG/5 ML LIQUID UDC GT SCH ×2 (08:06→21:28)
[2016-09-08] MEDS: ACIDOPHILUS/BULGARICUS CHEW TAB GT SCH ×2 (08:06→21:28)
[2016-09-08] MEDS: HYDROGEN PEROXIDE 3% 118 ML BOTTLE TP SCH ×2 (08:07→21:30)
[2016-09-08] MEDS: NEOMY/BACITRAC/POLYMI OINT 28.35 GM TUBE TOP SCH ×2 (08:07→21:30)
[2016-09-08] MEDS: PHENOBARBITAL GT SCH ×2 (08:07→21:29)
[2016-09-08] MEDS: FAMOTIDINE 20 MG TABLET GT SCH ×2 (08:07→21:29)
[2016-09-08] MEDS: COD LIVER OIL/ZINC OXIDE OINT 113 GM TUBE TOP SCH ×2 (08:07→21:30)
[2016-09-08] MEDS: DIABETICSOURCE AC 1000ML LIQUID GT PRN (08:08)
[2016-09-08] MEDS: TRIAMCINOLONE ACET 0.1% CREAM 15 GM TUBE TP SCH ×2 (08:08→21:30)
[2016-09-08] MEDS: NYSTATIN CREAM 30 GM TUBE TP SCH ×2 (08:08→21:31)
[2016-09-08] MEDS: POTASSIUM CHLORIDE 20 MEQ TAB.PRT.SR XX SCH ×2 (08:08→17:15)
[2016-09-08] MEDS: VITAMINS A AND D OINT TP SCH (08:08)
[2016-09-08] MEDS: MEROPENEM 1 G in IV NORMAL SALINE 100 ML IV SCH ×2 (08:10→15:02)
[2016-09-08] MEDS: FUROSEMIDE 40 MG/4 ML GT SCH (08:20)
[2016-09-08 08:47] LABS: BASOPHILS % (AUTO) 0.1 % (0.0-2.0); EOSINOPHILS # (AUTO) 0.3 K/uL (0.0-0.7); EOSINOPHILS % (AUTO) 4.7 % (0.0-7.0); HEMOGLOBIN 10.1 g/dL (12.0-16.0); LYMPHOCYTES # (AUTO) 1.1 K/uL (0.8-4.8); LYMPHOCYTES % (AUTO) 15.5 % (20.5-51.5); MEAN CORPUSCULAR HEMOGLOBIN 30.6 uug (27.0-31.0); MEAN CORPUSCULAR HGB CONC 31 g/dL (32.0-37.0); MEAN CORPUSCULAR VOLUME 97.3 fL (81.0-99.0); MONOCYTES # (AUTO) 0.5 K/uL (0.1-1.30); MONOCYTES % (AUTO) 7.4 % (0.0-11.0); NEUTROPHILS % (AUTO) 72.3 % (38.5-71.5); PLATELET COUNT (AUTO) 117 K/uL (150-450); RED BLOOD CELL COUNT(AUTO) 3.29 MIL/uL (4.20-5.40); WHITE BLOOD COUNT (AUTO) 6.9 K/uL (4.0-11.2)
[2016-09-08 09:08] LABS: BILIRUBIN,TOTAL 0.6 mg/dL (0.2-1.0); CREATININE 0.9 mg/dL (0.6-1.3); POTASSIUM 4.5 mmol/L (3.5-5.1); TOTAL PROTEIN, SERUM 8.6 g/dL (6.4-8.2)
[2016-09-08] MEDS: VANCOMYCIN IV 1 G in PREMIXED 0 EACH IV SCH ×2 (09:52→22:04)
--- NOTE | 2016-09-08 10:06 | NUR ---
Seen by Dr. Tsai, recommended to continue with IV antibiotics, no CT of the abdomen ordered at this time, Dr. Jorgensen notifed, Father notified of patients condition.
[2016-09-08] MEDS: INSULIN REGULAR, HUMAN 300 UNIT/3 ML VIAL SQ PRN ×2 (12:23→17:41)
[2016-09-08 20:00] VITALS: BP 101/65
[2016-09-08] MEDS: FISH OIL GT SCH (21:29)
[2016-09-08] MEDS: CALCIUM CARBONATE 500 MG TAB.CHEW GT SCH (21:29)
[2016-09-08] MEDS: [UNRECOGNIZED DRUG - OTHER] GT SCH (21:29)
[2016-09-09] MEDS: BACLOFEN 10 MG TABLET GT SCH ×5 (00:20→23:49)
[2016-09-09] MEDS: MEROPENEM 1 G in IV NORMAL SALINE 100 ML IV SCH ×3 (00:34→16:00)
[2016-09-09] MEDS: BLOOD SUGAR DIAGNOSTIC 1 EACH STRIP VI SCH ×5 (00:38→23:49)
--- NOTE | 2016-09-09 00:51 | NUR ---
PT ON CONT HT 50 VENT WITH SHILEY # [address] AND SECURED, WITH SAME CURRENT VENT SETTINGS, PT DOES ASSIST AT TIMES, CHECK CUFF, CHANGE HME, SUCTIONED LIGHT PALE YELL TINGE SECRETIONS, WITH GOOD COUGH EFFORT, ALL ALARMS OK, AMBU BAG AT BEDSIDE, NO VENT CHANGES MADE AT THIS TIME, PT STABLE. Andi CHAKRABORTYP Addendum: 09/09/16 at 0053 by ETHEL FERGUSON RT Amended: Links added.
--- NOTE | 2016-09-09 01:00 | NUR ---
continues on merrem iv & vancomycin iv, no adverse reaction observed.
[2016-09-09] MEDS: NUTRISOURCE FIBER 4 GM PACKET GT SCH ×3 (05:57→21:20)
[2016-09-09 08:00] VITALS: BP 105/58
[2016-09-09] MEDS: LEVETIRACETAM 500 MG/5 ML LIQUID UDC GT SCH ×2 (08:23→21:19)
[2016-09-09] MEDS: ACIDOPHILUS/BULGARICUS CHEW TAB GT SCH ×2 (08:23→21:19)
[2016-09-09] MEDS: FUROSEMIDE 40 MG/4 ML GT SCH (08:24)
[2016-09-09] MEDS: TRIAMCINOLONE ACET 0.1% CREAM 15 GM TUBE TP SCH ×2 (08:25→21:19)
[2016-09-09] MEDS: VITAMINS A AND D OINT TP SCH (08:25)
[2016-09-09] MEDS: COD LIVER OIL/ZINC OXIDE OINT 113 GM TUBE TOP SCH ×2 (08:25→21:19)
[2016-09-09] MEDS: NYSTATIN CREAM 30 GM TUBE TP SCH ×2 (08:25→21:20)
[2016-09-09] MEDS: FAMOTIDINE 20 MG TABLET GT SCH ×2 (08:25→21:19)
[2016-09-09] MEDS: HYDROGEN PEROXIDE 3% 118 ML BOTTLE TP SCH ×2 (08:25→21:19)
[2016-09-09] MEDS: POTASSIUM CHLORIDE 20 MEQ TAB.PRT.SR XX SCH ×2 (08:25→17:10)
[2016-09-09] MEDS: NEOMY/BACITRAC/POLYMI OINT 28.35 GM TUBE TOP SCH ×2 (08:25→21:19)
[2016-09-09] MEDS: PHENOBARBITAL GT SCH ×2 (08:25→21:19)
[2016-09-09] MEDS: DIABETICSOURCE AC 1000ML LIQUID GT PRN (08:26)
[2016-09-09] MEDS: INSULIN DETEMIR 300 UNIT/3 ML CARTRIDGE SQ SCH ×2 (09:02→20:28)
[2016-09-09 09:44] LABS: CREATININE 0.9 mg/dL (0.6-1.3)
[2016-09-09] MEDS: VANCOMYCIN IV 1 G in PREMIXED 0 EACH IV SCH (10:15)
--- NOTE | 2016-09-09 12:35 | NUR ---
CONTINUE ON IVATB,MERREN AND VANCOMYCIN,NO ADVERSE REACTION NOTED.IV HL ON THE R WRIST INTACT.
--- NOTE | 2016-09-09 19:37 | NUR ---
VANC TROUGH RESULT 29 WITH NEW ORDERS NOTED AND CARRIED OUT.
[2016-09-09] MEDS: FISH OIL GT SCH (21:19)
[2016-09-09] MEDS: [UNRECOGNIZED DRUG - OTHER] GT SCH (21:19)
[2016-09-09] MEDS: CALCIUM CARBONATE 500 MG TAB.CHEW GT SCH (21:19)
--- NOTE | 2016-09-09 22:30 | NUR ---
PT ON CONT HT 50 VENT WITH SHILEY # [address] AND SECURED, WITH SAME CURRENT VENT SETTINGS, PT DOES ASSIST AT TIMES, WITH GOOD COUGH EFFORT, SUCTIONED LIGHT PALE YELL TINGE SECRETIONS, CHANGE HME AND PASCUAL, ALL ALARMS OK, AMBU BAG AT BEDSIDE, PT STABLE AT THIS TIME.Andi CHAKRABORTYP Addendum: 09/09/16 at 2232 by ETHEL FERGUSON RT Amended: Links added.
[2016-09-09] MEDS: INSULIN REGULAR, HUMAN 300 UNIT/3 ML VIAL SQ PRN (23:50)
[2016-09-10] MEDS: MEROPENEM 1 G in IV NORMAL SALINE 100 ML IV SCH ×4 (00:05→23:45)
[2016-09-10 00:28] VITALS: BP 94/60
[2016-09-10] MEDS: INSULIN REGULAR, HUMAN 300 UNIT/3 ML VIAL SQ PRN ×4 (05:08→23:46)
[2016-09-10] MEDS: NUTRISOURCE FIBER 4 GM PACKET GT SCH ×3 (05:08→21:15)
[2016-09-10] MEDS: BLOOD SUGAR DIAGNOSTIC 1 EACH STRIP VI SCH ×4 (05:08→23:47)
[2016-09-10] MEDS: BACLOFEN 10 MG TABLET GT SCH ×3 (05:08→17:12)
[2016-09-10 08:03] VITALS: BP 101/55
[2016-09-10] MEDS: ACIDOPHILUS/BULGARICUS CHEW TAB GT SCH ×2 (08:51→21:06)
[2016-09-10] MEDS: FUROSEMIDE 40 MG/4 ML GT SCH (08:51)
[2016-09-10] MEDS: LEVETIRACETAM 500 MG/5 ML LIQUID UDC GT SCH ×2 (08:51→21:06)
[2016-09-10] MEDS: FAMOTIDINE 20 MG TABLET GT SCH ×2 (08:51→21:06)
[2016-09-10] MEDS: PHENOBARBITAL GT SCH ×2 (08:51→21:06)
[2016-09-10] MEDS: TRIAMCINOLONE ACET 0.1% CREAM 15 GM TUBE TP SCH ×2 (08:52→21:14)
[2016-09-10] MEDS: NEOMY/BACITRAC/POLYMI OINT 28.35 GM TUBE TOP SCH ×2 (08:52→21:14)
[2016-09-10] MEDS: HYDROGEN PEROXIDE 3% 118 ML BOTTLE TP SCH ×2 (08:52→21:14)
[2016-09-10] MEDS: NYSTATIN CREAM 30 GM TUBE TP SCH ×2 (08:52→21:14)
[2016-09-10] MEDS: COD LIVER OIL/ZINC OXIDE OINT 113 GM TUBE TOP SCH ×2 (08:52→21:13)
[2016-09-10] MEDS: VITAMINS A AND D OINT TP SCH (08:52)
[2016-09-10] MEDS: POTASSIUM CHLORIDE 20 MEQ TAB.PRT.SR XX SCH ×2 (08:52→17:12)
[2016-09-10] MEDS: INSULIN DETEMIR 300 UNIT/3 ML CARTRIDGE SQ SCH ×2 (08:56→21:07)
--- NOTE | 2016-09-10 19:46 | NUR ---
RECEIVED PT ON HT-50 VENT. PT TOLERATING VENT, SHOWING NO COMPLICATIONS ON SETTINGS OF A/C 12, VT 450, +5, 35% FIO2. SUCTIONED SMALL AMOUNTS OF WHITE/YELLOW SECRETIONS. TRACH IS PATENT AND SECURED. HME CHANGED PRN. CUFF INFLATED WITH MINIMAL LEAK NOTED. VENT ALARM PARAMETERS CHECKED, ARE ON AND AUDIBLE. AMBU BAG AND BACK UP TRACH AT BEDSIDE. VENTILATOR IS PLUGGED INTO RED EMERGENCY OUTLET. WILL CONTINUE TO MONITOR.
[2016-09-10 20:53] VITALS: BP 100/54
[2016-09-10] MEDS: FISH OIL GT SCH (21:06)
[2016-09-10] MEDS: CALCIUM CARBONATE 500 MG TAB.CHEW GT SCH (21:06)
[2016-09-10] MEDS: [UNRECOGNIZED DRUG - OTHER] GT SCH (21:06)
[2016-09-10] MEDS: DIABETICSOURCE AC 1000ML LIQUID GT PRN (22:51)
--- NOTE | 2016-09-10 23:00 | NUR ---
Afebrile, Still on meropenem IV for GT site cellulitis, no adverse reactions noted. Iv site on right hand, intact and no signs of infiltration noted. Gt site and surrounding area still with redness, treatment done as ordered, kept skin clean ad dry.
[2016-09-11] MEDS: BACLOFEN 10 MG TABLET GT SCH ×4 (00:51→17:01)
[2016-09-11] MEDS: NORMAL SALINE FLUSH 10 ML DISP.SYRIN IV SCH ×3 (02:00→21:00)
[2016-09-11] MEDS: NUTRISOURCE FIBER 4 GM PACKET GT SCH ×3 (06:17→21:27)
[2016-09-11] MEDS: BLOOD SUGAR DIAGNOSTIC 1 EACH STRIP VI SCH ×3 (06:17→17:04)
[2016-09-11 06:53] LABS: BASOPHILS % (AUTO) 0.4 % (0.0-2.0); EOSINOPHILS # (AUTO) 0.2 K/uL (0.0-0.7); HEMATOCRIT 29.1 % (37.0-47.0); HEMOGLOBIN 9.4 g/dL (12.0-16.0); LYMPHOCYTES # (AUTO) 1.4 K/uL (0.8-4.8); LYMPHOCYTES % (AUTO) 40.8 % (20.5-51.5); MEAN CORPUSCULAR HEMOGLOBIN 31.7 uug (27.0-31.0); MEAN CORPUSCULAR HGB CONC 32 g/dL (32.0-37.0); MEAN CORPUSCULAR VOLUME 98.3 fL (81.0-99.0); MONOCYTES # (AUTO) 0.2 K/uL (0.1-1.30); MONOCYTES % (AUTO) 5.4 % (0.0-11.0); NEUTROPHILS # (AUTO) 1.7 K/uL (1.8-8.9); NEUTROPHILS % (AUTO) 48.4 % (38.5-71.5); PLATELET COUNT (AUTO) 114 K/uL (150-450)
[2016-09-11 07:01] LABS: RED BLOOD CELL COUNT(AUTO) 2.96 MIL/uL (4.20-5.40); WHITE BLOOD COUNT (AUTO) 3.5 K/uL (4.0-11.2)
[2016-09-11 07:16] LABS: BILIRUBIN,TOTAL 0.2 mg/dL (0.2-1.0); CREATININE 0.9 mg/dL (0.6-1.3); POTASSIUM 4.1 mmol/L (3.5-5.1); TOTAL PROTEIN, SERUM 7.9 g/dL (6.4-8.2)
[2016-09-11 08:03] VITALS: BP 112/62
[2016-09-11] MEDS: MEROPENEM 1 G in IV NORMAL SALINE 100 ML IV SCH ×2 (08:05→15:04)
[2016-09-11] MEDS: NEOMY/BACITRAC/POLYMI OINT 28.35 GM TUBE TOP SCH ×2 (08:12→21:26)
[2016-09-11] MEDS: FAMOTIDINE 20 MG TABLET GT SCH ×2 (08:12→21:26)
[2016-09-11] MEDS: ACIDOPHILUS/BULGARICUS CHEW TAB GT SCH ×2 (08:12→21:25)
[2016-09-11] MEDS: PHENOBARBITAL GT SCH ×2 (08:12→21:25)
[2016-09-11] MEDS: LEVETIRACETAM 500 MG/5 ML LIQUID UDC GT SCH ×2 (08:12→21:25)
[2016-09-11] MEDS: COD LIVER OIL/ZINC OXIDE OINT 113 GM TUBE TOP SCH ×2 (08:12→21:26)
[2016-09-11] MEDS: FUROSEMIDE 40 MG/4 ML GT SCH (08:12)
[2016-09-11] MEDS: VITAMINS A AND D OINT TP SCH (08:13)
[2016-09-11] MEDS: TRIAMCINOLONE ACET 0.1% CREAM 15 GM TUBE TP SCH ×2 (08:13→21:26)
[2016-09-11] MEDS: HYDROGEN PEROXIDE 3% 118 ML BOTTLE TP SCH ×2 (08:13→21:26)
[2016-09-11] MEDS: NYSTATIN CREAM 30 GM TUBE TP SCH ×2 (08:13→21:26)
[2016-09-11] MEDS: POTASSIUM CHLORIDE 20 MEQ TAB.PRT.SR XX SCH ×2 (08:13→17:01)
[2016-09-11] MEDS: INSULIN DETEMIR 300 UNIT/3 ML CARTRIDGE SQ SCH ×2 (08:15→21:49)
--- NOTE | 2016-09-11 08:40 | NUR ---
RECEIVED ON CONTINUOUS VENT AC 12 VT 450 PEEP 5 FIO2 35%. TRACH IN PLACE AND SECURED. BACK UP TRACH AND BVM AT BEDSIDE. SUCTION LAVAGE PRN. VENT CHECKED, ALARMS WORKING WELL AND AUDIBLE. NO DISTRESS NOTED AT THIS TIME. WILL CONTINUE TO MONITOR.
[2016-09-11] MEDS: INSULIN REGULAR, HUMAN 300 UNIT/3 ML VIAL SQ PRN ×2 (11:34→17:05)
[2016-09-11] MEDS: VANCOMYCIN IV 750 MG in IV DEXTROSE 5% 250 ML IV SCH (12:29)
--- NOTE | 2016-09-11 13:59 | NUR ---
Seen by Mireya Cowan with no new order.
[2016-09-11 21:13] VITALS: BP 105/68
[2016-09-11] MEDS: FISH OIL GT SCH (21:25)
[2016-09-11] MEDS: [UNRECOGNIZED DRUG - OTHER] GT SCH (21:25)
[2016-09-11] MEDS: CALCIUM CARBONATE 500 MG TAB.CHEW GT SCH (21:26)
--- NOTE | 2016-09-11 22:02 | NUR ---
PATIENT RECEIVED ON THE HT-50 VENTILATOR WITH THE FOLLOWING SETTINGS OF: A/C 12, VT 450, PEEP +5, 35% FIO2. TRACH IS PROPERLY SECURED WITH TRACH TIES. SUCTIONED SMALL AMOUNT OF THICK WHITE AND YELLOW SECRETIONS. AIR WAY IS PATENT. PRN HME CHANGED. VENT IS PLUGGED INTO RED OUTLET. VENT ALARMS ARE ON AND AUDIBLE. BACK UP TRACH AND AMBU BAG IS AT BEDSIDE. PATIENT IS TOLERATING VENTILATOR SETTINGS WELL WITH NO SOB NOTED AT THIS TIME. WILL CONTINUE TO MONITOR PATIENT THROUGHOUT SHIFT.
[2016-09-12] MEDS: MEROPENEM 1 G in IV NORMAL SALINE 100 ML IV SCH ×3 (00:18→16:00)
[2016-09-12] MEDS: BLOOD SUGAR DIAGNOSTIC 1 EACH STRIP VI SCH ×4 (00:26→17:52)
[2016-09-12] MEDS: BACLOFEN 10 MG TABLET GT SCH ×4 (00:26→17:38)
[2016-09-12] MEDS: DIABETICSOURCE AC 1000ML LIQUID GT PRN (02:26)
[2016-09-12] MEDS: NUTRISOURCE FIBER 4 GM PACKET GT SCH ×3 (05:41→21:02)
[2016-09-12 08:03] VITALS: BP 92/48
--- NOTE | 2016-09-12 08:10 | NUR ---
Pt received in bed, laying semi-Huff's, unable to communicate, withdraws to stimuli.. Pt trach: Shiley [address] / secure with tie, no sign of irritation noted around / under trach tie.. Trach site clean / dry at this time, stoma appears normal, no discoloration noted.. Continuous mechanical ventilation, vent: HT-50 w/settings: A/C 12, Vt 450, PEEP +5, FiO2 35%, tolerating well, no changes made to vent settings at this time.. Vent alarms checked, alarms are on/audible and functioning properly at this time.. BVM/back up trach at bedside.. No s/s of respiratory distress / S.O.B noted.. Will continue to monitor..
[2016-09-12] MEDS: INSULIN DETEMIR 300 UNIT/3 ML CARTRIDGE SQ SCH ×2 (08:48→20:55)
[2016-09-12] MEDS: FUROSEMIDE 40 MG/4 ML GT SCH (08:51)
[2016-09-12] MEDS: ACIDOPHILUS/BULGARICUS CHEW TAB GT SCH ×2 (08:51→20:58)
[2016-09-12] MEDS: LEVETIRACETAM 500 MG/5 ML LIQUID UDC GT SCH ×2 (08:52→21:00)
[2016-09-12] MEDS: PHENOBARBITAL GT SCH ×2 (08:52→21:00)
[2016-09-12] MEDS: COD LIVER OIL/ZINC OXIDE OINT 113 GM TUBE TOP SCH ×2 (08:53→21:01)
[2016-09-12] MEDS: POTASSIUM CHLORIDE 20 MEQ TAB.PRT.SR XX SCH ×2 (08:53→17:38)
[2016-09-12] MEDS: NEOMY/BACITRAC/POLYMI OINT 28.35 GM TUBE TOP SCH ×2 (08:53→21:01)
[2016-09-12] MEDS: VITAMINS A AND D OINT TP SCH (08:53)
[2016-09-12] MEDS: NYSTATIN CREAM 30 GM TUBE TP SCH (08:53)
[2016-09-12] MEDS: TRIAMCINOLONE ACET 0.1% CREAM 15 GM TUBE TP SCH (08:53)
[2016-09-12] MEDS: HYDROGEN PEROXIDE 3% 118 ML BOTTLE TP SCH ×2 (08:53→21:02)
[2016-09-12] MEDS: FAMOTIDINE 20 MG TABLET GT SCH ×2 (08:53→21:01)
[2016-09-12] MEDS: NORMAL SALINE FLUSH 10 ML DISP.SYRIN IV SCH ×2 (09:00→21:01)
--- NOTE | 2016-09-12 12:13 | NUR ---
SEEN BY HARSH FULLER.
[2016-09-12] MEDS: VANCOMYCIN IV 750 MG in IV DEXTROSE 5% 250 ML IV SCH (12:42)
--- NOTE | 2016-09-12 15:06 | NUR ---
SEEN BY DENISE FULLER.
--- NOTE | 2016-09-12 19:05 | NUR ---
SEEN BY DANA Manning,N.P) AND NEW ORDER CARRIED OUT.
--- NOTE | 2016-09-12 20:25 | NUR ---
Pt received awake, on HT-50 vent with the following settings of AC-12, Vt-450, PEEP+5, FIO2-35%, trached with Shiley#6 DCT trach, which is in the place and secure. No sob noted. Airway care done, pt responded to physical stimuli. Resus. bag and back up trach at bedside. Vent and alarms on and audible.
[2016-09-12] MEDS: [UNRECOGNIZED DRUG - OTHER] GT SCH (21:00)
[2016-09-12] MEDS: FISH OIL GT SCH (21:00)
[2016-09-12] MEDS: CALCIUM CARBONATE 500 MG TAB.CHEW GT SCH (21:01)
[2016-09-12 21:32] VITALS: BP 101/53
--- NOTE | 2016-09-12 23:50 | NUR ---
Patient is on vancomycin IVPB every 24 hours for GT site Cellulitis, no adverse reactions noted. GT intact and no drainage from gt site , handled very gently. kept clean and comfortable.
--- NOTE | 2016-09-13 00:28 | NUR ---
Patient's Blood sugar was 56, [place] juice given and rechecked blood sugar and it went up to 70, no signs of any distress noted, will monitor closely.
[2016-09-13] MEDS: DIABETICSOURCE AC 1000ML LIQUID GT PRN (04:06)
--- NOTE | 2016-09-13 05:06 | NUR ---
Blood sugar at this time is 140, no signs of any hypoglycemia noted, no respiratory distress noted and no signs of any discomfort, kept clean and comfortable.
[2016-09-13] MEDS: NUTRISOURCE FIBER 4 GM PACKET GT SCH ×3 (05:20→21:01)
[2016-09-13] MEDS: BLOOD SUGAR DIAGNOSTIC 1 EACH STRIP VI SCH ×4 (05:20→17:10)
[2016-09-13] MEDS: BACLOFEN 10 MG TABLET GT SCH ×4 (05:20→17:04)
[2016-09-13 08:02] VITALS: BP 107/69
[2016-09-13] MEDS: LEVETIRACETAM 500 MG/5 ML LIQUID UDC GT SCH ×2 (08:24→21:00)
[2016-09-13] MEDS: FUROSEMIDE 40 MG/4 ML GT SCH (08:24)
[2016-09-13] MEDS: FAMOTIDINE 20 MG TABLET GT SCH ×2 (08:24→21:00)
[2016-09-13] MEDS: PHENOBARBITAL GT SCH ×2 (08:24→21:00)
[2016-09-13] MEDS: ACIDOPHILUS/BULGARICUS CHEW TAB GT SCH ×2 (08:24→21:00)
[2016-09-13] MEDS: VITAMINS A AND D OINT TP SCH (08:25)
[2016-09-13] MEDS: HYDROGEN PEROXIDE 3% 118 ML BOTTLE TP SCH ×2 (08:25→21:01)
[2016-09-13] MEDS: NEOMY/BACITRAC/POLYMI OINT 28.35 GM TUBE TOP SCH ×2 (08:25→21:01)
[2016-09-13] MEDS: COD LIVER OIL/ZINC OXIDE OINT 113 GM TUBE TOP SCH ×2 (08:25→21:01)
[2016-09-13] MEDS: INSULIN DETEMIR 300 UNIT/3 ML CARTRIDGE SQ SCH ×2 (08:37→21:08)
[2016-09-13] MEDS: POTASSIUM CHLORIDE 20 MEQ TAB.PRT.SR XX SCH ×2 (08:38→17:03)
[2016-09-13] MEDS: VANCOMYCIN IV 750 MG in IV DEXTROSE 5% 250 ML IV SCH (11:14)
[2016-09-13] MEDS: NORMAL SALINE FLUSH 10 ML DISP.SYRIN IV SCH ×2 (11:14→21:01)
[2016-09-13] MEDS: INSULIN REGULAR, HUMAN 300 UNIT/3 ML VIAL SQ PRN ×2 (11:58→17:11)
--- NOTE | 2016-09-13 13:45 | NUR ---
Seen by Dr. Tsai, continue Vancomycin IV total of 7 days, no more vancomycin trough level.
[2016-09-13] MEDS ORDERED: VANCOMYCIN IV 750 MG in IV DEXTROSE 5% 250 ML IV SCH ×2 (15:02→15:34)
[2016-09-13 20:16] VITALS: BP 103/57
[2016-09-13] MEDS: CALCIUM CARBONATE 500 MG TAB.CHEW GT SCH (21:01)
[2016-09-13] MEDS: FISH OIL GT SCH (21:08)
[2016-09-13] MEDS: [UNRECOGNIZED DRUG - OTHER] GT SCH (21:08)
--- NOTE | 2016-09-13 22:25 | NUR ---
seen by josé miguel vasquez, no new orders.
[2016-09-14] MEDS: BACLOFEN 10 MG TABLET GT SCH ×4 (00:11→17:21)
[2016-09-14] MEDS: BLOOD SUGAR DIAGNOSTIC 1 EACH STRIP VI SCH ×5 (00:11→23:57)
[2016-09-14] MEDS: DIABETICSOURCE AC 1000ML LIQUID GT PRN ×2 (03:50→08:21)
[2016-09-14] MEDS: NUTRISOURCE FIBER 4 GM PACKET GT SCH ×3 (05:29→21:01)
[2016-09-14 08:07] VITALS: BP 106/70
[2016-09-14] MEDS: FUROSEMIDE 40 MG/4 ML GT SCH (08:17)
[2016-09-14] MEDS: ACIDOPHILUS/BULGARICUS CHEW TAB GT SCH ×2 (08:17→20:56)
[2016-09-14] MEDS: LEVETIRACETAM 500 MG/5 ML LIQUID UDC GT SCH ×2 (08:17→20:56)
[2016-09-14] MEDS: FAMOTIDINE 20 MG TABLET GT SCH ×2 (08:18→21:00)
[2016-09-14] MEDS: NORMAL SALINE FLUSH 10 ML DISP.SYRIN IV SCH ×2 (08:18→21:01)
[2016-09-14] MEDS: HYDROGEN PEROXIDE 3% 118 ML BOTTLE TP SCH ×2 (08:18→21:01)
[2016-09-14] MEDS: PHENOBARBITAL GT SCH ×2 (08:18→21:00)
[2016-09-14] MEDS: COD LIVER OIL/ZINC OXIDE OINT 113 GM TUBE TOP SCH ×2 (08:18→21:01)
[2016-09-14] MEDS: NEOMY/BACITRAC/POLYMI OINT 28.35 GM TUBE TOP SCH ×2 (08:18→21:01)
[2016-09-14] MEDS: VITAMINS A AND D OINT TP SCH (08:19)
[2016-09-14] MEDS: POTASSIUM CHLORIDE 20 MEQ TAB.PRT.SR XX SCH ×2 (08:21→17:21)
[2016-09-14] MEDS: INSULIN DETEMIR 300 UNIT/3 ML CARTRIDGE SQ SCH ×2 (08:21→21:03)
--- NOTE | 2016-09-14 10:42 | NUR ---
RECEIVED PATIENT ON HT-50 VENT W/ THE FOLLOWING SETTINGS THAT ARE CHARTED ON THE MECHANICAL VENT NOTES. SUCTIONED SMALL AMOUNT OF WHITE/YELLOW SECRETIONS. TRACH IS SECURED AND AIR WAY IS PATENT. HME CHANGED. SPARE TRACH AND BMV AT BEDSIDE. VENT PARAMETERS CHECKED AND THEY ARE ON AND AUDIBLE. VENTILATOR PLUG IS IN THE RED EMERGENCY OUTLET. NO SIGNS OR SYMPTOMS OF RESPIRATORY DISTRESS NOTED AT THIS TIME. WILL CONTINUE TO MONITOR.
--- NOTE | 2016-09-14 11:41 | NUR ---
Pharmacy Review for upcoming 09/22 IDT Meeting -VS: TEMP 97.5 HR 72 BP 118/68 -LABS: (no new labs since previous review) (07/11/16): WBC 6.1H/H 9.7/28.7PLT 69 (07/15/16): NA 142K 3.8CL 106CO2 32BUN/SCR 27/0.9 BS 318CA 8.3 -MEDICATION USE REVIEWED: > Pt is not on any anti-psych medication > On Phenobarbital 50mg BID, last level 21 (15-39)(06/26/16); and 23 (06/30) >On Keppra 750mg BID, Calculated CrCl 65.4 ml/min, last level was 43.8 (10-40) (06/16/16) > Pt insulin regimen adjusted. Pt now on levemir 66 units HS, levemir 36 units AM + a custom sliding scale of regular insulin + 8units of regular insulin in addition. BS in August ranged 91-228 since adjustment. > PRN MED USAGE: (August) Tylenol 650mg mild-mod pain none used Tylenol 650mg for temp none used [place] 5/325mg for mod-severe pain (6-10) none used Artificial tears none used (second month) -NEW ORDERS NOTED: > Insulin regimen adjusted to aforementioned schedule, NPH d/c'd, levemir 36 units AM was added, levemir HS was increased to 66 units. Changes made on 08/23 Recommendations > Will consider asking for repeat labs for routine renal function monitoring for Keppra. > Artificial tears used once since start on 03/2016, may ask MD if can d/c from lack of use. Addendum: 09/19/16 at 1245 by RODNEY GODFREY >Update for recent LABS(09/11/16): WBC 3.5 H/H 9.4/29.1 Plt 114 Na 149 K 4.1 Cl 113 CO2 32 BUN/Scr 32/0.9 BS 75 Ca 8.2 >Update for IDT meeting today(09/19/16): No dosage adjustment needed for Keppra(renal function not changed). Recommended MD to discontinue artificial tears but MD ordered to keep for now. Will continue to monitor.
[2016-09-14] MEDS: VANCOMYCIN IV 750 MG in IV DEXTROSE 5% 250 ML IV SCH (12:09)
--- NOTE | 2016-09-14 14:20 | NUR ---
DR BARNETT WAS CALLED AND MADE HIM AWARE BS RESULTS,WITH NEW ORDERS NOTED.
--- NOTE | 2016-09-14 18:00 | NUR ---
LAST DOSE OF IVATB GIVEN,NO ADVERSE REACTION NOTED.
[2016-09-14 20:30] VITALS: BP 92/47
[2016-09-14] MEDS: [UNRECOGNIZED DRUG - OTHER] GT SCH (21:00)
[2016-09-14] MEDS: FISH OIL GT SCH (21:00)
[2016-09-14] MEDS: CALCIUM CARBONATE 500 MG TAB.CHEW GT SCH (21:01)
--- NOTE | 2016-09-14 22:04 | NUR ---
PT ON CONT HT 50 VENT WITH SHILEY # [address] AND SECURED,PT DOES ASSIST AT TIMES ,WITH GOOD COUGH EFFORT, SUCTIONED LIGHT PALE YELL TINGE SECRETIONS, SUCTION MOUTH WITH KARINA HALEY, CHANGE HME AND CHECK CUFF, ALL ALARMS OK, AMBU BAG AT BEDSIDE, NO VENT CHANGES MADE AT THIS TIME, NO SIGNS OF RESP. DISTRESS NOTED. Andi FERGUSON RCP Addendum: 09/14/16 at 2209 by ETHEL FERGUSON RT Amended: Links added.
[2016-09-15] MEDS: BACLOFEN 10 MG TABLET GT SCH ×4 (00:31→17:32)
[2016-09-15] MEDS: NUTRISOURCE FIBER 4 GM PACKET GT SCH ×3 (05:16→21:01)
[2016-09-15] MEDS: BLOOD SUGAR DIAGNOSTIC 1 EACH STRIP VI SCH ×3 (05:16→17:57)
[2016-09-15] MEDS: DIABETICSOURCE AC 1000ML LIQUID GT PRN ×2 (05:19→08:33)
--- NOTE | 2016-09-15 07:53 | NUR ---
Pt received laying in bed, semi-Huff's, unable to communicate - obtunded, withdraws to stimuli.. Pt trach: Shiley [address] / secure with tie, no sign of irritation noted around / under trach tie.. Trach site clean / dry at this time, stoma appears normal, no discoloration noted.. Continuous mechanical ventilation, vent: HT-50 w/settings: A/C 12, Vt 450, PEEP +5, FiO2 35%, tolerating well, no changes made to vent settings at this time.. Vent alarms checked, alarms are on/audible and functioning properly at this time.. BVM/back up trach at bedside.. No s/s of respiratory distress / S.O.B noted.. Will continue to monitor..
[2016-09-15 08:00] VITALS: BP 111/62
[2016-09-15] MEDS: INSULIN DETEMIR 300 UNIT/3 ML CARTRIDGE SQ SCH ×2 (08:28→20:59)
[2016-09-15] MEDS: ACIDOPHILUS/BULGARICUS CHEW TAB GT SCH ×2 (08:30→20:45)
[2016-09-15] MEDS: LEVETIRACETAM 500 MG/5 ML LIQUID UDC GT SCH ×2 (08:31→20:45)
[2016-09-15] MEDS: FUROSEMIDE 40 MG/4 ML GT SCH (08:31)
[2016-09-15] MEDS: COD LIVER OIL/ZINC OXIDE OINT 113 GM TUBE TOP SCH ×2 (08:32→21:01)
[2016-09-15] MEDS: NEOMY/BACITRAC/POLYMI OINT 28.35 GM TUBE TOP SCH ×2 (08:32→21:01)
[2016-09-15] MEDS: FAMOTIDINE 20 MG TABLET GT SCH ×2 (08:32→20:54)
[2016-09-15] MEDS: PHENOBARBITAL GT SCH ×2 (08:33→20:54)
[2016-09-15] MEDS: HYDROGEN PEROXIDE 3% 118 ML BOTTLE TP SCH ×2 (08:33→21:01)
[2016-09-15] MEDS: POTASSIUM CHLORIDE 20 MEQ TAB.PRT.SR XX SCH ×2 (08:33→17:32)
[2016-09-15] MEDS: NORMAL SALINE FLUSH 10 ML DISP.SYRIN IV SCH ×2 (08:33→21:00)
[2016-09-15] MEDS: VITAMINS A AND D OINT TP SCH (08:33)
--- NOTE | 2016-09-15 09:45 | NUR ---
SEEN BY DR. HERBERT AND WITH NNO.
--- NOTE | 2016-09-15 19:50 | NUR ---
RECEIVED ON CONTINUOUS VENT AC 12 VT 450 PEEP 5 FIO2 35%. TRACH IN PLACE AND SECURED. BACK UP TRACH AND BVM AT BEDSIDE. SUCTION SMALL AMOUNT THIN WHITE SECRETIONS. VENT CHECKED, ALARMS WORKING WELL AND AUDIBLE. NO DISTRESS NOTED AT THIS TIME. WILL CONTINUE TO MONITOR.
[2016-09-15 20:39] VITALS: BP 116/69
[2016-09-15] MEDS: [UNRECOGNIZED DRUG - OTHER] GT SCH (20:46)
[2016-09-15] MEDS: FISH OIL GT SCH (20:46)
[2016-09-15] MEDS: CALCIUM CARBONATE 500 MG TAB.CHEW GT SCH (21:00)
[2016-09-16] MEDS: BACLOFEN 10 MG TABLET GT SCH ×4 (00:18→17:31)
[2016-09-16] MEDS: BLOOD SUGAR DIAGNOSTIC 1 EACH STRIP VI SCH ×4 (00:19→17:31)
[2016-09-16] MEDS: NUTRISOURCE FIBER 4 GM PACKET GT SCH ×3 (05:43→21:30)
[2016-09-16 08:00] VITALS: BP 119/59
[2016-09-16] MEDS: PHENOBARBITAL GT SCH ×2 (09:14→21:28)
[2016-09-16] MEDS: FUROSEMIDE 40 MG/4 ML GT SCH (09:14)
[2016-09-16] MEDS: FAMOTIDINE 20 MG TABLET GT SCH ×2 (09:14→21:28)
[2016-09-16] MEDS: LEVETIRACETAM 500 MG/5 ML LIQUID UDC GT SCH ×2 (09:14→21:25)
[2016-09-16] MEDS: ACIDOPHILUS/BULGARICUS CHEW TAB GT SCH ×2 (09:14→21:25)
[2016-09-16] MEDS: INSULIN DETEMIR 300 UNIT/3 ML CARTRIDGE SQ SCH ×2 (09:26→21:27)
[2016-09-16] MEDS: COD LIVER OIL/ZINC OXIDE OINT 113 GM TUBE TOP SCH ×2 (09:27→21:29)
[2016-09-16] MEDS: VITAMINS A AND D OINT TP SCH (09:27)
[2016-09-16] MEDS: HYDROGEN PEROXIDE 3% 118 ML BOTTLE TP SCH ×2 (09:27→21:30)
[2016-09-16] MEDS: NEOMY/BACITRAC/POLYMI OINT 28.35 GM TUBE TOP SCH ×2 (09:27→21:29)
[2016-09-16] MEDS: POTASSIUM CHLORIDE 20 MEQ TAB.PRT.SR XX SCH ×2 (09:27→17:31)
[2016-09-16 20:25] VITALS: BP 104/67
[2016-09-16] MEDS: NORMAL SALINE FLUSH 10 ML DISP.SYRIN IV SCH (21:00)
[2016-09-16] MEDS: CALCIUM CARBONATE 500 MG TAB.CHEW GT SCH (21:28)
[2016-09-16] MEDS: FISH OIL GT SCH (21:29)
[2016-09-16] MEDS: [UNRECOGNIZED DRUG - OTHER] GT SCH (21:29)
[2016-09-17] MEDS: BACLOFEN 10 MG TABLET GT SCH ×4 (00:03→17:54)
[2016-09-17] MEDS: BLOOD SUGAR DIAGNOSTIC 1 EACH STRIP VI SCH ×4 (00:03→17:54)
[2016-09-17] MEDS: NUTRISOURCE FIBER 4 GM PACKET GT SCH ×3 (05:36→21:27)
--- NOTE | 2016-09-17 07:42 | NUR ---
Pt received in bed, semi-Huff's, unable to communicate - obtunded, withdraws to stimuli.. Pt trach: Surekhaley [address]/secure with tie, no sign of irritation noted around/under trach tie.. Trach site clean/dry at this time, stoma appears normal, no discoloration noted.. Continuous mechanical ventilation, vent: HT-50 w/settings: A/C 12, Vt 450, PEEP +5, FiO2 35%, tolerating well, no changes made to vent settings at this time.. Vent alarms checked, alarms are on/audible and functioning properly at this time.. BVM/back up trach at bedside.. No s/s of respiratory distress/S.O.B noted.. Will continue to monitor..
[2016-09-17 08:17] VITALS: BP 102/59
[2016-09-17] MEDS: INSULIN DETEMIR 300 UNIT/3 ML CARTRIDGE SQ SCH ×2 (09:14→20:48)
[2016-09-17] MEDS: ACIDOPHILUS/BULGARICUS CHEW TAB GT SCH ×2 (09:21→20:44)
[2016-09-17] MEDS: LEVETIRACETAM 500 MG/5 ML LIQUID UDC GT SCH ×2 (09:21→20:52)
[2016-09-17] MEDS: PHENOBARBITAL GT SCH ×2 (09:23→20:49)
[2016-09-17] MEDS: FUROSEMIDE 40 MG/4 ML GT SCH (09:23)
[2016-09-17] MEDS: NEOMY/BACITRAC/POLYMI OINT 28.35 GM TUBE TOP SCH ×2 (09:25→20:47)
[2016-09-17] MEDS: HYDROGEN PEROXIDE 3% 118 ML BOTTLE TP SCH ×2 (09:25→20:47)
[2016-09-17] MEDS: FAMOTIDINE 20 MG TABLET GT SCH ×2 (09:25→20:44)
[2016-09-17] MEDS: COD LIVER OIL/ZINC OXIDE OINT 113 GM TUBE TOP SCH ×2 (09:25→20:47)
[2016-09-17] MEDS: VITAMINS A AND D OINT TP SCH (09:26)
[2016-09-17] MEDS: POTASSIUM CHLORIDE 20 MEQ TAB.PRT.SR XX SCH ×2 (09:26→17:53)
[2016-09-17] MEDS: INSULIN REGULAR, HUMAN 300 UNIT/3 ML VIAL SQ PRN (12:42)
[2016-09-17] MEDS: FISH OIL GT SCH (20:44)
[2016-09-17] MEDS: [UNRECOGNIZED DRUG - OTHER] GT SCH (20:44)
[2016-09-17] MEDS: CALCIUM CARBONATE 500 MG TAB.CHEW GT SCH (20:47)
[2016-09-17 21:42] VITALS: BP 110/68
--- NOTE | 2016-09-17 22:13 | NUR ---
Seen and examined by VALE Lomax with no new order.
--- NOTE | 2016-09-18 | NUR ---
Blood sugar check at 12 MN and obtained 89, currently on levemir 30 units sub-Q in am and levemir 60 units sub-Q @ bedtime aside from coverage per sliding scale. patient is warm to touch and no signs of any distress or discomfort, kept clean and comfortable.
[2016-09-18] MEDS: BACLOFEN 10 MG TABLET GT SCH ×4 (00:15→17:10)
[2016-09-18] MEDS: BLOOD SUGAR DIAGNOSTIC 1 EACH STRIP VI SCH ×4 (00:15→17:11)
[2016-09-18] MEDS: NUTRISOURCE FIBER 4 GM PACKET GT SCH ×3 (05:02→22:03)
--- NOTE | 2016-09-18 06:00 | NUR ---
Blood sugar is 106 , no signs of hypoglycemia noted, no signs of any distress noted, kept clean and comfortable.
[2016-09-18 08:00] VITALS: BP 116/60
[2016-09-18] MEDS: LEVETIRACETAM 500 MG/5 ML LIQUID UDC GT SCH ×2 (09:30→20:17)
[2016-09-18] MEDS: ACIDOPHILUS/BULGARICUS CHEW TAB GT SCH ×2 (09:30→20:16)
[2016-09-18] MEDS: PHENOBARBITAL GT SCH ×2 (09:31→20:17)
[2016-09-18] MEDS: FUROSEMIDE 40 MG/4 ML GT SCH (09:31)
[2016-09-18] MEDS: POTASSIUM CHLORIDE 20 MEQ TAB.PRT.SR XX SCH ×2 (09:32→17:10)
[2016-09-18] MEDS: COD LIVER OIL/ZINC OXIDE OINT 113 GM TUBE TOP SCH ×2 (09:32→20:26)
[2016-09-18] MEDS: NEOMY/BACITRAC/POLYMI OINT 28.35 GM TUBE TOP SCH ×2 (09:32→20:26)
[2016-09-18] MEDS: HYDROGEN PEROXIDE 3% 118 ML BOTTLE TP SCH ×2 (09:32→20:26)
[2016-09-18] MEDS: VITAMINS A AND D OINT TP SCH (09:32)
[2016-09-18] MEDS: FAMOTIDINE 20 MG TABLET GT SCH ×2 (09:32→20:25)
[2016-09-18] MEDS: INSULIN DETEMIR 300 UNIT/3 ML CARTRIDGE SQ SCH ×2 (09:38→20:19)
[2016-09-18] MEDS: INSULIN REGULAR, HUMAN 300 UNIT/3 ML VIAL SQ PRN ×2 (12:23→17:11)
[2016-09-18] MEDS: DIABETICSOURCE AC 1000ML LIQUID GT PRN (18:11)
--- NOTE | 2016-09-18 19:50 | NUR ---
RECEIVED ON CONTINUOUS VENT AC 14 VT 450 PEEP 5 FIO2 35%. TRACH IN PLACE AND SECURED. BACK UP TRACH AND BVM AT BEDSIDE. SUCTION SMALL AMOUNT THICK PALE YELLOW SECRETIONS. VENT CHECKED, ALARMS WORKING WELL AND AUDIBLE. NO DISTRESS NOTED AT THIS TIME. WILL CONTINUE TO MONITOR.
[2016-09-18] MEDS: CALCIUM CARBONATE 500 MG TAB.CHEW GT SCH (20:26)
[2016-09-18] MEDS: [UNRECOGNIZED DRUG - OTHER] GT SCH (20:27)
[2016-09-18] MEDS: FISH OIL GT SCH (20:27)
[2016-09-18 20:46] VITALS: BP 112/57
[2016-09-19] MEDS: BLOOD SUGAR DIAGNOSTIC 1 EACH STRIP VI SCH ×5 (00:25→23:27)
[2016-09-19] MEDS: BACLOFEN 10 MG TABLET GT SCH ×5 (00:25→23:27)
[2016-09-19] MEDS: NUTRISOURCE FIBER 4 GM PACKET GT SCH ×3 (05:14→21:04)
[2016-09-19 08:00] VITALS: BP 113/51
[2016-09-19] MEDS: ACIDOPHILUS/BULGARICUS CHEW TAB GT SCH ×2 (08:39→20:53)
[2016-09-19] MEDS: FAMOTIDINE 20 MG TABLET GT SCH ×2 (08:43→20:54)
[2016-09-19] MEDS: LEVETIRACETAM 500 MG/5 ML LIQUID UDC GT SCH ×2 (08:43→20:53)
[2016-09-19] MEDS: FUROSEMIDE 40 MG/4 ML GT SCH (08:43)
[2016-09-19] MEDS: PHENOBARBITAL GT SCH ×2 (08:43→20:54)
[2016-09-19] MEDS: HYDROGEN PEROXIDE 3% 118 ML BOTTLE TP SCH ×2 (08:44→20:55)
[2016-09-19] MEDS: COD LIVER OIL/ZINC OXIDE OINT 113 GM TUBE TOP SCH ×2 (08:44→20:55)
[2016-09-19] MEDS: POTASSIUM CHLORIDE 20 MEQ TAB.PRT.SR XX SCH ×2 (08:44→17:22)
[2016-09-19] MEDS: VITAMINS A AND D OINT TP SCH (08:44)
[2016-09-19] MEDS: NEOMY/BACITRAC/POLYMI OINT 28.35 GM TUBE TOP SCH ×2 (08:44→20:55)
[2016-09-19] MEDS: INSULIN DETEMIR 300 UNIT/3 ML CARTRIDGE SQ SCH ×2 (08:51→20:58)
--- NOTE | 2016-09-19 09:07 | NUR ---
SEEN BY DENISE FULLER.
[2016-09-19] MEDS: INSULIN REGULAR, HUMAN 300 UNIT/3 ML VIAL SQ PRN ×2 (11:59→17:23)
--- NOTE | 2016-09-19 15:08 | NUR ---
INTERDISCIPLINARY PLAN OF CARE CONFERENCE was held today. Patient's father was invited to the meeting, but he was unable to attend. Dr. Gilbert and the Interdisciplinary Team reviewed the current plan of care in detail. RN provided updates on patient's current medical condition and current medications. See RN IDT conference notes. No major changes were reported at this time. See also all other disciplines IDT notes and physician's progress notes for additional details.
--- NOTE | 2016-09-19 19:00 | NUR ---
Pt received in semi diaz position, has limited response to verbal stimuli, and is on Continuous mechanical ventilation via trach. Trach is a FlameStower 6 DCT. Trach is patent and secure. No irritation or redness noted around stoma or trach tie. Tolerating vent settings well. SpO2-98%. Pt is on Taurus HT-50 vent with settings of A/C-12, VT-450, PEEP +5, FIO2-35%. HME changed. PPE used. Vent alarm parameters checked, on and audible. Vent plugged into red emergency outlet. Bag/valve/mask and back up trach bedside. Will continue to monitor.
--- NOTE | 2016-09-19 19:58 | NUR ---
SEEN BY DR. VICK FULLER.
[2016-09-19 20:00] VITALS: BP 106/53
[2016-09-19] MEDS: [UNRECOGNIZED DRUG - OTHER] GT SCH (20:53)
[2016-09-19] MEDS: FISH OIL GT SCH (20:53)
[2016-09-19] MEDS: CALCIUM CARBONATE 500 MG TAB.CHEW GT SCH (20:54)
[2016-09-20] MEDS: NUTRISOURCE FIBER 4 GM PACKET GT SCH ×3 (05:16→21:34)
[2016-09-20] MEDS: BACLOFEN 10 MG TABLET GT SCH ×3 (05:16→17:17)
[2016-09-20] MEDS: BLOOD SUGAR DIAGNOSTIC 1 EACH STRIP VI SCH ×3 (05:17→17:21)
[2016-09-20 08:02] VITALS: BP 103/57
[2016-09-20] MEDS: ACIDOPHILUS/BULGARICUS CHEW TAB GT SCH ×2 (09:07→21:27)
[2016-09-20] MEDS: INSULIN DETEMIR 300 UNIT/3 ML CARTRIDGE SQ SCH ×2 (09:10→21:33)
[2016-09-20] MEDS: FUROSEMIDE 40 MG/4 ML GT SCH (09:11)
[2016-09-20] MEDS: FAMOTIDINE 20 MG TABLET GT SCH ×2 (09:11→21:27)
[2016-09-20] MEDS: PHENOBARBITAL GT SCH ×2 (09:13→21:27)
[2016-09-20] MEDS: LEVETIRACETAM 500 MG/5 ML LIQUID UDC GT SCH ×2 (09:13→21:27)
[2016-09-20] MEDS: POTASSIUM CHLORIDE 20 MEQ TAB.PRT.SR XX SCH ×2 (09:16→17:17)
[2016-09-20] MEDS: VITAMINS A AND D OINT TP SCH (09:16)
[2016-09-20] MEDS: COD LIVER OIL/ZINC OXIDE OINT 113 GM TUBE TOP SCH ×2 (09:16→21:33)
[2016-09-20] MEDS: HYDROGEN PEROXIDE 3% 118 ML BOTTLE TP SCH ×2 (09:16→21:34)
--- NOTE | 2016-09-20 11:55 | NUR ---
PT RECEIVED ON THE HT-50 VENTILATOR WITH THE FOLLOWING SETTINGS THAT ARE CHARTED ON THE MECHANICAL VENTILATOR NOTES. HME CHANGED. CIRCUIT CHANGED. PRN SUCTIONING PERFORMED. SUCTIONED SMALL AMOUNTS OF WHITE AND YELLOW SECRETIONS. TRACH IS PATENT AND IS PROPERLY SECURED WITH TRACH TIES. BACK UP TRACH AND AMBU BAG AT BEDSIDE. ALARMS ARE ON AND AUDIBLE. VENT PLUG IS PLUGGED INTO RED OUTLET. NO SOB NOTED AT THIS TIME. WILL CONTINUE TO MONITOR PATIENT THROUGHOUT SHIFT.
[2016-09-20] MEDS: INSULIN REGULAR, HUMAN 300 UNIT/3 ML VIAL SQ PRN ×2 (12:05→17:21)
[2016-09-20 20:00] VITALS: BP 101/54
--- NOTE | 2016-09-20 20:16 | NUR ---
Received pt on HT-50 vent with the following settings of AC-12, Vt-450, PEEP+5, FIO2-35%, trached with Shiley#6 DCT trach, which is in the place and secure. No sob noted. Airway care done, pt responded to physical stimuli. Resus. bag and back up trach at bedside. Vent and alarms checked and reset.
[2016-09-20] MEDS: CALCIUM CARBONATE 500 MG TAB.CHEW GT SCH (21:27)
[2016-09-20] MEDS: FISH OIL GT SCH (21:27)
[2016-09-20] MEDS: [UNRECOGNIZED DRUG - OTHER] GT SCH (21:27)
[2016-09-21] MEDS: BACLOFEN 10 MG TABLET GT SCH ×4 (00:12→17:04)
[2016-09-21] MEDS: BLOOD SUGAR DIAGNOSTIC 1 EACH STRIP VI SCH ×4 (00:12→17:50)
[2016-09-21] MEDS: NUTRISOURCE FIBER 4 GM PACKET GT SCH ×3 (05:48→21:20)
[2016-09-21 08:00] VITALS: BP 108/64
[2016-09-21] MEDS: ACIDOPHILUS/BULGARICUS CHEW TAB GT SCH ×2 (08:07→21:14)
[2016-09-21] MEDS: PHENOBARBITAL GT SCH ×2 (08:08→21:14)
[2016-09-21] MEDS: POTASSIUM CHLORIDE 20 MEQ TAB.PRT.SR XX SCH ×2 (08:08→17:04)
[2016-09-21] MEDS: LEVETIRACETAM 500 MG/5 ML LIQUID UDC GT SCH ×2 (08:08→21:14)
[2016-09-21] MEDS: DIABETICSOURCE AC 1000ML LIQUID GT PRN (08:08)
[2016-09-21] MEDS: FAMOTIDINE 20 MG TABLET GT SCH ×2 (08:08→21:14)
[2016-09-21] MEDS: COD LIVER OIL/ZINC OXIDE OINT 113 GM TUBE TOP SCH ×2 (08:08→21:20)
[2016-09-21] MEDS: FUROSEMIDE 40 MG/4 ML GT SCH (08:08)
[2016-09-21] MEDS: HYDROGEN PEROXIDE 3% 118 ML BOTTLE TP SCH ×2 (08:08→21:20)
[2016-09-21] MEDS: VITAMINS A AND D OINT TP SCH (08:08)
[2016-09-21] MEDS: INSULIN DETEMIR 300 UNIT/3 ML CARTRIDGE SQ SCH ×2 (08:10→21:20)
--- NOTE | 2016-09-21 12:06 | NUR ---
SEEN AND EXAMINED BY DYLAN COLLAZO,NO NEW ORDERS NOTED.
--- NOTE | 2016-09-21 20:10 | NUR ---
Received pt on HT-50 vent with the following settings of AC-12, Vt-450, PEEP+5, FIO2-35%, trached with Shiley#6 DCT trach, which is in the place and secure. No distress noted. Airway care done, pt responded to physical stimuli. Resus. bag and back up trach at bedside. Vent and alarms on and audible.
[2016-09-21] MEDS: FISH OIL GT SCH (21:14)
[2016-09-21] MEDS: CALCIUM CARBONATE 500 MG TAB.CHEW GT SCH (21:14)
[2016-09-21] MEDS: [UNRECOGNIZED DRUG - OTHER] GT SCH (21:14)
[2016-09-21 23:24] VITALS: BP 117/52
[2016-09-22] MEDS: BLOOD SUGAR DIAGNOSTIC 1 EACH STRIP VI SCH ×5 (00:08→21:45)
[2016-09-22] MEDS: BACLOFEN 10 MG TABLET GT SCH ×4 (00:08→17:45)
[2016-09-22] MEDS: NUTRISOURCE FIBER 4 GM PACKET GT SCH ×3 (05:19→21:55)
[2016-09-22 08:00] VITALS: BP 103/59
--- NOTE | 2016-09-22 08:05 | NUR ---
PT ON HT-50, SETTINGS AC12 450VT PEEP+5 35%FIO2. SHILEY 6DCT, TRACH CUFF INFLATED, NO LEAK PRESENT USING MINIMAL OCCLUDING TECH, TRACH IS IN PLACE, PATENT AND SECURED WITH TRACH TIES. NO S/S OF RESPIRATORY DISTRESS NOTED AT THIS TIME. PT SUCTIONED SM/MOD AMOUNT OF YELLOWISH THICK SECRETIONS. BVM AND BACK UP TRACH AT BEDSIDE. ALARMS AUDIBLE, CHECKED AND RESET. PPE USED. WILL CONTINUE TO MONITOR AND REPORT ANY CHANGES.
[2016-09-22] MEDS: FUROSEMIDE 40 MG/4 ML GT SCH (08:12)
[2016-09-22] MEDS: COD LIVER OIL/ZINC OXIDE OINT 113 GM TUBE TOP SCH ×2 (08:12→21:54)
[2016-09-22] MEDS: PHENOBARBITAL GT SCH ×2 (08:12→21:54)
[2016-09-22] MEDS: HYDROGEN PEROXIDE 3% 118 ML BOTTLE TP SCH ×2 (08:12→21:55)
[2016-09-22] MEDS: VITAMINS A AND D OINT TP SCH (08:12)
[2016-09-22] MEDS: LEVETIRACETAM 500 MG/5 ML LIQUID UDC GT SCH ×2 (08:12→21:54)
[2016-09-22] MEDS: FAMOTIDINE 20 MG TABLET GT SCH ×2 (08:12→21:54)
[2016-09-22] MEDS: POTASSIUM CHLORIDE 20 MEQ TAB.PRT.SR XX SCH ×2 (08:12→17:45)
[2016-09-22] MEDS: DIABETICSOURCE AC 1000ML LIQUID GT PRN (08:12)
[2016-09-22] MEDS: ACIDOPHILUS/BULGARICUS CHEW TAB GT SCH ×2 (08:12→21:54)
[2016-09-22] MEDS: INSULIN DETEMIR 300 UNIT/3 ML CARTRIDGE SQ SCH ×2 (08:13→21:45)
--- NOTE | 2016-09-22 21:51 | NUR ---
PT ON CONT HT 50 VENT WITH SHILEY # [address] AND SECURED, WITH SAME CURRENT VENT SETTINGS, WITH GOOD COUGH EFFORT, CHANGE HME, CHECK CUFF, SUCTIONED LIGHT PALE YELL TINGE SECRETIONS, NO VENT CHANGES MADE AT THIS TIME, ALL ALARMS OK, AMBU BAG AT BEDSIDE, PT STABLE, VENT PLUGGED INTO RED WALL OUTLET. Andi CHAKRABORTYP Addendum: 09/22/16 at 2153 by ETHEL FERGUSON RT Amended: Links added.
[2016-09-22 21:53] VITALS: BP 105/57
[2016-09-22] MEDS: FISH OIL GT SCH (21:54)
[2016-09-22] MEDS: CALCIUM CARBONATE 500 MG TAB.CHEW GT SCH (21:54)
[2016-09-22] MEDS: [UNRECOGNIZED DRUG - OTHER] GT SCH (21:54)
[2016-09-23] MEDS: BLOOD SUGAR DIAGNOSTIC 1 EACH STRIP VI SCH ×4 (00:29→17:45)
[2016-09-23] MEDS: BACLOFEN 10 MG TABLET GT SCH ×4 (00:29→17:45)
[2016-09-23] MEDS: INSULIN REGULAR, HUMAN 300 UNIT/3 ML VIAL SQ PRN ×2 (00:34→12:43)
[2016-09-23] MEDS: NUTRISOURCE FIBER 4 GM PACKET GT SCH ×3 (05:16→21:11)
[2016-09-23 08:00] VITALS: BP 96/63
[2016-09-23] MEDS: ACIDOPHILUS/BULGARICUS CHEW TAB GT SCH ×2 (09:29→21:08)
[2016-09-23] MEDS: PHENOBARBITAL GT SCH ×2 (09:29→21:08)
[2016-09-23] MEDS: COD LIVER OIL/ZINC OXIDE OINT 113 GM TUBE TOP SCH ×2 (09:29→21:11)
[2016-09-23] MEDS: FAMOTIDINE 20 MG TABLET GT SCH ×2 (09:29→21:08)
[2016-09-23] MEDS: VITAMINS A AND D OINT TP SCH (09:29)
[2016-09-23] MEDS: LEVETIRACETAM 500 MG/5 ML LIQUID UDC GT SCH ×2 (09:29→21:08)
[2016-09-23] MEDS: HYDROGEN PEROXIDE 3% 118 ML BOTTLE TP SCH ×2 (09:29→21:11)
[2016-09-23] MEDS: POTASSIUM CHLORIDE 20 MEQ TAB.PRT.SR XX SCH ×2 (09:29→17:44)
[2016-09-23] MEDS: FUROSEMIDE 40 MG/4 ML GT SCH (09:29)
--- NOTE | 2016-09-23 09:41 | NUR ---
RECEIVED PATIENT ON HT-50 VENT WITH THE FOLLOWING SETTINGS THAT ARE CHARTED ON THE MECHANICAL VENT NOTES. SUCTIONED A SMALL AMOUNT OF THICK WHITE/YELLOWISH SECRETIONS. PRN ORAL SUCTIONING PERFORMED WELL. TRACH IS PATENT AND SECURED. SPARE TRACH AND BMV AT BEDSIDE. CHANGED HME. VENTILATOR IS PLUGGED IN THE RED EMERGENCY OUTLET. VENT ALARMS CHECKED AND THEY ARE ON AND AUDIBLE. NO RESPIRATORY DISTRESS NOTED AT THIS TIME. PATIENT IS TOLERATING VENT SETTINGS WELL. WILL CONTINUE TO MONITOR.
[2016-09-23] MEDS: INSULIN DETEMIR 300 UNIT/3 ML CARTRIDGE SQ SCH ×2 (09:43→21:18)
[2016-09-23] MEDS: DIABETICSOURCE AC 1000ML LIQUID GT PRN (19:30)
--- NOTE | 2016-09-23 20:32 | NUR ---
PT ON CONT HT 50 VENT WITH SHILEY # [address] AND SECURED, WITH SAME CURRENT VENT SETTINGS, PT DOES ASSIST AT TIMES, CHECK CUFF, CHANGE HME AND PASCUAL, SUCTIONED LIGHT PALE YELL TINGE SECRETIONS, WITH GOOD COUGH EFFORT, NO VENT CHANGES MADE AT THIS TIME, PT WITH NO SIGNS OF RESP. DISTRESS, ALL ALARMS OK, AMBU BAG AT BEDSIDE, PT STABLE AT THIS TIME.Andi FERGUSON RCP Addendum: 09/23/16 at 2034 by ETHEL FERGUSON RT Amended: Links added.
[2016-09-23] MEDS: [UNRECOGNIZED DRUG - OTHER] GT SCH (21:08)
[2016-09-23] MEDS: FISH OIL GT SCH (21:08)
[2016-09-23] MEDS: CALCIUM CARBONATE 500 MG TAB.CHEW GT SCH (21:09)
[2016-09-23 22:37] VITALS: BP 106/58
[2016-09-24] MEDS: BACLOFEN 10 MG TABLET GT SCH ×4 (00:10→17:07)
[2016-09-24] MEDS: BLOOD SUGAR DIAGNOSTIC 1 EACH STRIP VI SCH ×4 (00:10→17:07)
[2016-09-24] MEDS: NUTRISOURCE FIBER 4 GM PACKET GT SCH ×3 (05:43→21:09)
[2016-09-24] MEDS: INSULIN REGULAR, HUMAN 300 UNIT/3 ML VIAL SQ PRN (05:49)
[2016-09-24 08:03] VITALS: BP 108/60
[2016-09-24] MEDS: ACIDOPHILUS/BULGARICUS CHEW TAB GT SCH ×2 (08:40→21:08)
[2016-09-24] MEDS: LEVETIRACETAM 500 MG/5 ML LIQUID UDC GT SCH ×2 (08:42→21:08)
[2016-09-24] MEDS: FAMOTIDINE 20 MG TABLET GT SCH ×2 (08:43→21:08)
[2016-09-24] MEDS: COD LIVER OIL/ZINC OXIDE OINT 113 GM TUBE TOP SCH ×2 (08:43→21:09)
[2016-09-24] MEDS: FUROSEMIDE 40 MG/4 ML GT SCH (08:43)
[2016-09-24] MEDS: VITAMINS A AND D OINT TP SCH (08:43)
[2016-09-24] MEDS: PHENOBARBITAL GT SCH ×2 (08:43→21:08)
[2016-09-24] MEDS: HYDROGEN PEROXIDE 3% 118 ML BOTTLE TP SCH ×2 (08:43→21:09)
[2016-09-24] MEDS: POTASSIUM CHLORIDE 20 MEQ TAB.PRT.SR XX SCH ×2 (08:43→17:07)
[2016-09-24] MEDS: INSULIN DETEMIR 300 UNIT/3 ML CARTRIDGE SQ SCH ×2 (08:45→21:17)
[2016-09-24] MEDS: CALCIUM CARBONATE 500 MG TAB.CHEW GT SCH (21:08)
[2016-09-24] MEDS: [UNRECOGNIZED DRUG - OTHER] GT SCH (21:08)
[2016-09-24] MEDS: FISH OIL GT SCH (21:08)
[2016-09-24 22:41] VITALS: BP 115/59
[2016-09-24] MEDS: DIABETICSOURCE AC 1000ML LIQUID GT PRN (23:00)
[2016-09-25] MEDS: BLOOD SUGAR DIAGNOSTIC 1 EACH STRIP VI SCH ×4 (00:27→17:57)
[2016-09-25] MEDS: BACLOFEN 10 MG TABLET GT SCH ×4 (00:27→17:47)
[2016-09-25] MEDS: INSULIN REGULAR, HUMAN 300 UNIT/3 ML VIAL SQ PRN ×2 (00:52→06:20)
[2016-09-25] MEDS: NUTRISOURCE FIBER 4 GM PACKET GT SCH ×3 (06:12→21:31)
[2016-09-25 08:03] VITALS: BP 102/56
[2016-09-25] MEDS: ACIDOPHILUS/BULGARICUS CHEW TAB GT SCH ×2 (09:09→21:30)
[2016-09-25] MEDS: FUROSEMIDE 40 MG/4 ML GT SCH (09:10)
[2016-09-25] MEDS: FAMOTIDINE 20 MG TABLET GT SCH ×2 (09:10→21:30)
[2016-09-25] MEDS: HYDROGEN PEROXIDE 3% 118 ML BOTTLE TP SCH ×2 (09:10→21:31)
[2016-09-25] MEDS: LEVETIRACETAM 500 MG/5 ML LIQUID UDC GT SCH ×2 (09:10→21:30)
[2016-09-25] MEDS: COD LIVER OIL/ZINC OXIDE OINT 113 GM TUBE TOP SCH ×2 (09:10→21:30)
[2016-09-25] MEDS: PHENOBARBITAL GT SCH ×2 (09:10→21:30)
[2016-09-25] MEDS: POTASSIUM CHLORIDE 20 MEQ TAB.PRT.SR XX SCH ×2 (09:11→17:47)
[2016-09-25] MEDS: VITAMINS A AND D OINT TP SCH (09:11)
[2016-09-25] MEDS: INSULIN DETEMIR 300 UNIT/3 ML CARTRIDGE SQ SCH ×2 (09:12→21:00)
--- NOTE | 2016-09-25 12:05 | NUR ---
Seen by Kasey Cowan with no new order.
[2016-09-25] MEDS: [UNRECOGNIZED DRUG - OTHER] GT SCH (21:30)
[2016-09-25] MEDS: FISH OIL GT SCH (21:30)
[2016-09-25] MEDS: CALCIUM CARBONATE 500 MG TAB.CHEW GT SCH (21:30)
[2016-09-25 23:19] VITALS: BP 109/58
[2016-09-26] MEDS: BLOOD SUGAR DIAGNOSTIC 1 EACH STRIP VI SCH ×4 (00:26→17:37)
[2016-09-26] MEDS: BACLOFEN 10 MG TABLET GT SCH ×5 (00:26→23:31)
[2016-09-26] MEDS: INSULIN REGULAR, HUMAN 300 UNIT/3 ML VIAL SQ PRN ×2 (01:37→06:01)
[2016-09-26] MEDS: DIABETICSOURCE AC 1000ML LIQUID GT PRN (03:00)
[2016-09-26] MEDS: NUTRISOURCE FIBER 4 GM PACKET GT SCH ×3 (05:58→21:55)
[2016-09-26 08:03] VITALS: BP 92/62
--- NOTE | 2016-09-26 08:10 | NUR ---
RECEIVED ON CONTINUOUS VENT AC 12 VT 450 PEEP 5 FIO2 35%. TRACH CHANGE PERFORMED WITHOUT COMPLICATIONS NOTED. TRACH SECURED WITH TRACH TIE. NO BLEEDING NOTED. TRACH SITE CLEAN AND DRY. BACK UP TRACH AND BVM AT BEDSIDE. SUCTION MODERATE AMOUNT THICK YELLOW SECRETIONS. VENT CHECKED, ALARMS WORKING WELL AND AUDIBLE. NO DISTRESS NOTED AT THIS TIME. WILL CONTINUE TO MONITOR.
[2016-09-26] MEDS: ACIDOPHILUS/BULGARICUS CHEW TAB GT SCH ×2 (09:42→20:46)
[2016-09-26] MEDS: LEVETIRACETAM 500 MG/5 ML LIQUID UDC GT SCH ×2 (09:43→20:47)
[2016-09-26] MEDS: POTASSIUM CHLORIDE 20 MEQ TAB.PRT.SR XX SCH ×2 (09:44→17:30)
[2016-09-26] MEDS: COD LIVER OIL/ZINC OXIDE OINT 113 GM TUBE TOP SCH ×2 (09:44→20:48)
[2016-09-26] MEDS: VITAMINS A AND D OINT TP SCH (09:44)
[2016-09-26] MEDS: FUROSEMIDE 40 MG/4 ML GT SCH (09:44)
[2016-09-26] MEDS: PHENOBARBITAL GT SCH ×2 (09:44→20:47)
[2016-09-26] MEDS: FAMOTIDINE 20 MG TABLET GT SCH ×2 (09:44→20:47)
[2016-09-26] MEDS: HYDROGEN PEROXIDE 3% 118 ML BOTTLE TP SCH ×2 (09:44→20:48)
[2016-09-26] MEDS: INSULIN DETEMIR 300 UNIT/3 ML CARTRIDGE SQ SCH ×2 (09:46→20:51)
--- NOTE | 2016-09-26 15:48 | NUR ---
SEEN BY DENISE FULLER.
--- NOTE | 2016-09-26 19:49 | NUR ---
SEEN BY DR. VICK FULLER.
[2016-09-26 20:00] VITALS: BP 103/55
--- NOTE | 2016-09-26 20:10 | NUR ---
RECEIVED PT ON HT-50 VENT. CURRENT VENT SETTINGS ARE A/C 12, VT 450, PEEP +5, FIO2 35%. PT SEEMS TO BE TOLERATING CURRENT SETTINGS, SHOWING NO S/S OF RESPIRATORY DISTRESS AT THIS TIME. TRACH IS PATENT AND SECURED WITH TRACH TIES. HME CHANGED. SUCTIONED SMALL AMOUNT OF PALE/YELLOW SECRETIONS. CUFF PRESSURE CHECKED AND IS INFLATED WITH MINIMAL LEAK NOTED. VENT ALARM PARAMETERS CHECKED. ALARMS ARE ON AND AUDIBLE. VENT IS PLUGGED INTO RED EMERGENCY OUTLET. BVM AND BACK UP TRACH ARE AT BEDSIDE. WILL CONTINUE TO MONITOR.
[2016-09-26] MEDS: FISH OIL GT SCH (20:47)
[2016-09-26] MEDS: [UNRECOGNIZED DRUG - OTHER] GT SCH (20:47)
[2016-09-26] MEDS: CALCIUM CARBONATE 500 MG TAB.CHEW GT SCH (20:48)
[2016-09-27] MEDS: INSULIN REGULAR, HUMAN 300 UNIT/3 ML VIAL SQ PRN ×5 (01:12→23:32)
[2016-09-27] MEDS: BACLOFEN 10 MG TABLET GT SCH ×4 (05:01→23:31)
[2016-09-27] MEDS: NUTRISOURCE FIBER 4 GM PACKET GT SCH ×3 (05:01→21:02)
[2016-09-27] MEDS: DIABETICSOURCE AC 1000ML LIQUID GT PRN (05:01)
[2016-09-27] MEDS: BLOOD SUGAR DIAGNOSTIC 1 EACH STRIP VI SCH ×5 (05:14→23:31)
[2016-09-27 08:02] VITALS: BP 110/65
--- NOTE | 2016-09-27 08:07 | NUR ---
Pt received laying in bed, semi-Huff's, awake, unable to communicate - obtunded, withdraws to stimuli.. Pt trach: Surekhaley [address]/secure with tie, no visible sign of irritation or breakdown noted around/under trach tie.. Trach site clean/dry at this time, stoma appears normal, no discoloration noted.. Continuous mechanical ventilation, vent: HT-50 w/settings: A/C 12, Vt 450, PEEP +5, FiO2 35%, tolerating well, no changes made to vent settings at this time.. Vent alarms checked, alarms are on/audible and functioning properly at this time.. BVM/back up trach at bedside.. No s/s of respiratory distress/S.O.B noted.. Will continue to monitor..
[2016-09-27] MEDS: COD LIVER OIL/ZINC OXIDE OINT 113 GM TUBE TOP SCH ×2 (08:26→21:02)
[2016-09-27] MEDS: ACIDOPHILUS/BULGARICUS CHEW TAB GT SCH ×2 (08:26→20:58)
[2016-09-27] MEDS: FAMOTIDINE 20 MG TABLET GT SCH ×2 (08:26→20:59)
[2016-09-27] MEDS: PHENOBARBITAL GT SCH ×2 (08:26→20:59)
[2016-09-27] MEDS: LEVETIRACETAM 500 MG/5 ML LIQUID UDC GT SCH ×2 (08:26→20:58)
[2016-09-27] MEDS: HYDROGEN PEROXIDE 3% 118 ML BOTTLE TP SCH ×2 (08:26→21:02)
[2016-09-27] MEDS: FUROSEMIDE 40 MG/4 ML GT SCH (08:26)
[2016-09-27] MEDS: POTASSIUM CHLORIDE 20 MEQ TAB.PRT.SR XX SCH ×2 (08:27→17:15)
[2016-09-27] MEDS: VITAMINS A AND D OINT TP SCH (08:27)
[2016-09-27] MEDS: INSULIN DETEMIR 300 UNIT/3 ML CARTRIDGE SQ SCH ×2 (08:31→21:00)
[2016-09-27 20:04] VITALS: BP 94/63
--- NOTE | 2016-09-27 20:05 | NUR ---
Patient received on HT-50 settings AC 12, VT 450, PEEP+5, FIO2-35%. Shiley 6 patent/secure. B/U Shiley 6 & BVM at bedside. No resp. distress noted. Pt to be monitored throughout the shift and PRN SX. HT-50 alarm parameters have been checekd and remain audible.
[2016-09-27] MEDS: [UNRECOGNIZED DRUG - OTHER] GT SCH (20:59)
[2016-09-27] MEDS: FISH OIL GT SCH (20:59)
[2016-09-27] MEDS: CALCIUM CARBONATE 500 MG TAB.CHEW GT SCH (20:59)
[2016-09-28] MEDS: BLOOD SUGAR DIAGNOSTIC 1 EACH STRIP VI SCH ×4 (05:14→23:25)
[2016-09-28] MEDS: BACLOFEN 10 MG TABLET GT SCH ×4 (05:14→23:25)
[2016-09-28] MEDS: NUTRISOURCE FIBER 4 GM PACKET GT SCH ×3 (05:14→21:14)
[2016-09-28] MEDS: INSULIN REGULAR, HUMAN 300 UNIT/3 ML VIAL SQ PRN ×3 (05:15→23:26)
[2016-09-28] MEDS: DIABETICSOURCE AC 1000ML LIQUID GT PRN (05:23)
[2016-09-28 08:03] VITALS: BP 102/60
--- NOTE | 2016-09-28 08:19 | NUR ---
Pt received in bed, laying semi-Huff's, eyes open, unable to communicate - obtunded, withdraws to stimuli.. Pt trach: Surekhaley [address] / secure with tie, no visible sign of irritation / breakdown noted around / under trach tie.. Trach site clean / dry at this time, stoma appears normal, no discoloration noted.. Continuous mechanical ventilation, vent: HT-50 w/settings: A/C 12, Vt 450, PEEP +5, FiO2 35%, tolerating well, no changes made to vent settings at this time.. Vent alarms checked, alarms are on/audible and functioning properly at this time.. BVM / back up trach at bedside.. No s/s of respiratory distress / S.O.B noted.. Will continue to monitor..
[2016-09-28] MEDS: ACIDOPHILUS/BULGARICUS CHEW TAB GT SCH ×2 (08:38→21:11)
[2016-09-28] MEDS: LEVETIRACETAM 500 MG/5 ML LIQUID UDC GT SCH ×2 (08:39→21:11)
[2016-09-28] MEDS: HYDROGEN PEROXIDE 3% 118 ML BOTTLE TP SCH ×2 (08:39→21:14)
[2016-09-28] MEDS: POTASSIUM CHLORIDE 20 MEQ TAB.PRT.SR XX SCH ×2 (08:39→17:10)
[2016-09-28] MEDS: FUROSEMIDE 40 MG/4 ML GT SCH (08:39)
[2016-09-28] MEDS: COD LIVER OIL/ZINC OXIDE OINT 113 GM TUBE TOP SCH ×2 (08:39→21:14)
[2016-09-28] MEDS: PHENOBARBITAL GT SCH ×2 (08:39→21:12)
[2016-09-28] MEDS: FAMOTIDINE 20 MG TABLET GT SCH ×2 (08:39→21:13)
[2016-09-28] MEDS: VITAMINS A AND D OINT TP SCH (08:39)
[2016-09-28] MEDS: INSULIN DETEMIR 300 UNIT/3 ML CARTRIDGE SQ SCH ×2 (08:41→21:14)
--- NOTE | 2016-09-28 11:30 | NUR ---
SEEN BY HARSH FULLER.
--- NOTE | 2016-09-28 19:38 | NUR ---
Pt received on HT-50 settings A/C 12, VT 450, PEEP+5, FIO2-35%. Shiley 6 patent and secure. Backup Shiley 6 & BVM at bedside. No resp. distress noted. Pt to be monitored throughout the shift and PRN SX. HT-50 alarm parameters have been checekd and remain audible.
[2016-09-28] MEDS: FISH OIL GT SCH (21:12)
[2016-09-28] MEDS: [UNRECOGNIZED DRUG - OTHER] GT SCH (21:12)
[2016-09-28] MEDS: CALCIUM CARBONATE 500 MG TAB.CHEW GT SCH (21:14)
[2016-09-29] MEDS: BLOOD SUGAR DIAGNOSTIC 1 EACH STRIP VI SCH ×3 (05:04→17:18)
[2016-09-29] MEDS: BACLOFEN 10 MG TABLET GT SCH ×3 (05:04→17:11)
[2016-09-29] MEDS: NUTRISOURCE FIBER 4 GM PACKET GT SCH ×3 (05:04→21:11)
[2016-09-29] MEDS: INSULIN REGULAR, HUMAN 300 UNIT/3 ML VIAL SQ PRN ×3 (05:05→17:19)
[2016-09-29 08:00] VITALS: BP 123/59
[2016-09-29] MEDS: ACIDOPHILUS/BULGARICUS CHEW TAB GT SCH ×2 (08:13→21:22)
[2016-09-29] MEDS: FUROSEMIDE 40 MG/4 ML GT SCH (08:14)
[2016-09-29] MEDS: FAMOTIDINE 20 MG TABLET GT SCH ×2 (08:14→21:10)
[2016-09-29] MEDS: PHENOBARBITAL GT SCH ×2 (08:14→21:11)
[2016-09-29] MEDS: LEVETIRACETAM 500 MG/5 ML LIQUID UDC GT SCH ×2 (08:14→21:10)
[2016-09-29] MEDS: INSULIN DETEMIR 300 UNIT/3 ML CARTRIDGE SQ SCH ×2 (08:15→21:24)
[2016-09-29] MEDS: POTASSIUM CHLORIDE 20 MEQ TAB.PRT.SR XX SCH ×2 (08:17→17:11)
[2016-09-29] MEDS: COD LIVER OIL/ZINC OXIDE OINT 113 GM TUBE TOP SCH ×2 (08:17→21:11)
[2016-09-29] MEDS: HYDROGEN PEROXIDE 3% 118 ML BOTTLE TP SCH ×2 (08:17→21:11)
[2016-09-29] MEDS: VITAMINS A AND D OINT TP SCH (08:17)
[2016-09-29] MEDS: DIABETICSOURCE AC 1000ML LIQUID GT PRN (10:33)
[2016-09-29 20:30] VITALS: BP 105/59
[2016-09-29] MEDS: [UNRECOGNIZED DRUG - OTHER] GT SCH (21:10)
[2016-09-29] MEDS: FISH OIL GT SCH (21:10)
[2016-09-29] MEDS: CALCIUM CARBONATE 500 MG TAB.CHEW GT SCH (21:11)
[2016-09-30] MEDS: BACLOFEN 10 MG TABLET GT SCH ×4 (00:56→18:15)
[2016-09-30] MEDS: BLOOD SUGAR DIAGNOSTIC 1 EACH STRIP VI SCH ×4 (00:56→18:16)
[2016-09-30] MEDS: INSULIN REGULAR, HUMAN 300 UNIT/3 ML VIAL SQ PRN ×4 (00:57→18:20)
[2016-09-30] MEDS: NUTRISOURCE FIBER 4 GM PACKET GT SCH ×3 (05:23→21:19)
[2016-09-30 07:57] VITALS: BP 100/59
[2016-09-30] MEDS: INSULIN DETEMIR 300 UNIT/3 ML CARTRIDGE SQ SCH ×2 (08:55→21:46)
[2016-09-30] MEDS: ACIDOPHILUS/BULGARICUS CHEW TAB GT SCH ×2 (09:01→21:18)
[2016-09-30] MEDS: LEVETIRACETAM 500 MG/5 ML LIQUID UDC GT SCH ×2 (09:02→21:18)
[2016-09-30] MEDS: FUROSEMIDE 40 MG/4 ML GT SCH (09:05)
[2016-09-30] MEDS: FAMOTIDINE 20 MG TABLET GT SCH ×2 (09:06→21:18)
[2016-09-30] MEDS: PHENOBARBITAL GT SCH ×2 (09:06→21:18)
[2016-09-30] MEDS: COD LIVER OIL/ZINC OXIDE OINT 113 GM TUBE TOP SCH ×2 (09:08→21:19)
[2016-09-30] MEDS: HYDROGEN PEROXIDE 3% 118 ML BOTTLE TP SCH ×2 (09:08→21:19)
[2016-09-30] MEDS: VITAMINS A AND D OINT TP SCH (09:08)
[2016-09-30] MEDS: POTASSIUM CHLORIDE 20 MEQ TAB.PRT.SR XX SCH ×2 (09:08→17:00)
[2016-09-30] MEDS: DIABETICSOURCE AC 1000ML LIQUID GT PRN (18:21)
--- NOTE | 2016-09-30 20:32 | NUR ---
Pt received on HT-50 vent with the following settings of AC-12, Vt-450, PEEP+5, FIO2-35%, trached with Shiley#6 DCT trach, which is in the place and secure. No s/s of respiratory distress noted. Airway care done, pt responded to physical stimuli. Resus. bag and back up trach at bedside. Vent and alarms checked and reset.
[2016-09-30] MEDS: FISH OIL GT SCH (21:18)
[2016-09-30] MEDS: [UNRECOGNIZED DRUG - OTHER] GT SCH (21:18)
[2016-09-30] MEDS: CALCIUM CARBONATE 500 MG TAB.CHEW GT SCH (21:19)
[2016-09-30 21:33] VITALS: BP 96/54
[2016-10-01] MEDS: BACLOFEN 10 MG TABLET GT SCH ×4 (00:10→17:43)
[2016-10-01] MEDS: BLOOD SUGAR DIAGNOSTIC 1 EACH STRIP VI SCH ×4 (00:34→17:44)
[2016-10-01] MEDS: INSULIN REGULAR, HUMAN 300 UNIT/3 ML VIAL SQ PRN ×4 (00:38→17:45)
[2016-10-01] MEDS: NUTRISOURCE FIBER 4 GM PACKET GT SCH ×3 (05:23→21:11)
--- NOTE | 2016-10-01 07:55 | NUR ---
Pt received in semi diaz position, has limited response to verbal stimuli, and is on Continuous mechanical ventilation via trach. Trach is a [id number] 6 DCT. Trach is patent and secure. No irritation or redness noted around stoma or trach tie. Tolerating vent settings well. SpO2-100%. Pt is on [place] HT-50 vent with settings of A/C-12, VT-450, PEEP +5, FIO2-35%. HME changed. PPE used. Vent alarm parameters checked, on and audible. Vent plugged into red emergency outlet. Bag/valve/mask and back up trach bedside. Will continue to monitor.
[2016-10-01] MEDS: ACIDOPHILUS/BULGARICUS CHEW TAB GT SCH ×2 (08:11→21:10)
[2016-10-01] MEDS: PHENOBARBITAL GT SCH ×2 (08:13→21:11)
[2016-10-01] MEDS: LEVETIRACETAM 500 MG/5 ML LIQUID UDC GT SCH ×2 (08:13→21:10)
[2016-10-01] MEDS: FUROSEMIDE 40 MG/4 ML GT SCH (08:13)
[2016-10-01] MEDS: INSULIN DETEMIR 300 UNIT/3 ML CARTRIDGE SQ SCH ×2 (08:14→21:12)
[2016-10-01] MEDS: FAMOTIDINE 20 MG TABLET GT SCH ×2 (08:14→21:11)
[2016-10-01] MEDS: VITAMINS A AND D OINT TP SCH (08:17)
[2016-10-01] MEDS: POTASSIUM CHLORIDE 20 MEQ TAB.PRT.SR XX SCH ×2 (08:17→17:42)
[2016-10-01] MEDS: COD LIVER OIL/ZINC OXIDE OINT 113 GM TUBE TOP SCH ×2 (08:17→21:11)
[2016-10-01] MEDS: HYDROGEN PEROXIDE 3% 118 ML BOTTLE TP SCH ×2 (08:17→21:11)
[2016-10-01 11:16] VITALS: BP 100/69
[2016-10-01] MEDS: DIABETICSOURCE AC 1000ML LIQUID GT PRN (12:42)
[2016-10-01] MEDS: [UNRECOGNIZED DRUG - OTHER] GT SCH (21:10)
[2016-10-01] MEDS: FISH OIL GT SCH (21:10)
[2016-10-01] MEDS: CALCIUM CARBONATE 500 MG TAB.CHEW GT SCH (21:11)
[2016-10-01 22:00] VITALS: BP 102/54
[2016-10-02] MEDS: BACLOFEN 10 MG TABLET GT SCH ×4 (00:47→17:42)
[2016-10-02] MEDS: BLOOD SUGAR DIAGNOSTIC 1 EACH STRIP VI SCH ×4 (00:47→17:42)
[2016-10-02] MEDS: INSULIN REGULAR, HUMAN 300 UNIT/3 ML VIAL SQ PRN ×4 (00:49→17:42)
[2016-10-02] MEDS: NUTRISOURCE FIBER 4 GM PACKET GT SCH ×3 (05:47→21:19)
[2016-10-02 08:00] VITALS: BP 116/56
[2016-10-02] MEDS: ACIDOPHILUS/BULGARICUS CHEW TAB GT SCH ×2 (08:39→21:19)
[2016-10-02] MEDS: LEVETIRACETAM 500 MG/5 ML LIQUID UDC GT SCH ×2 (08:39→21:19)
[2016-10-02] MEDS: PHENOBARBITAL GT SCH ×2 (08:43→21:19)
[2016-10-02] MEDS: FUROSEMIDE 40 MG/4 ML GT SCH (08:43)
[2016-10-02] MEDS: FAMOTIDINE 20 MG TABLET GT SCH ×2 (08:44→21:19)
[2016-10-02] MEDS: VITAMINS A AND D OINT TP SCH (08:44)
[2016-10-02] MEDS: COD LIVER OIL/ZINC OXIDE OINT 113 GM TUBE TOP SCH ×2 (08:44→21:19)
[2016-10-02] MEDS: POTASSIUM CHLORIDE 20 MEQ TAB.PRT.SR XX SCH ×2 (08:44→17:42)
[2016-10-02] MEDS: HYDROGEN PEROXIDE 3% 118 ML BOTTLE TP SCH ×2 (08:44→21:19)
[2016-10-02] MEDS: INSULIN DETEMIR 300 UNIT/3 ML CARTRIDGE SQ SCH ×2 (08:48→20:31)
--- NOTE | 2016-10-02 11:00 | NUR ---
SEEN BY MEENAKSHI FULLER.
--- NOTE | 2016-10-02 13:00 | NUR ---
SEEN BY DENISE FULLER.
[2016-10-02] MEDS: DIABETICSOURCE AC 1000ML LIQUID GT PRN (13:01)
--- NOTE | 2016-10-02 19:34 | NUR ---
Patient received on HT-50 settings AC 12, VT 450, PEEP+5, FIO2-35%. Shiley 6 DCT is patent and secure. B/U Shiley 6 DCT & resusc. bag both at bedside. No resp. distress noted. Pt to be monitored throughout the shift and PRN SX. HT-50 alarm parameters have been checekd and remain audible.
[2016-10-02] MEDS: FISH OIL GT SCH (21:19)
[2016-10-02] MEDS: CALCIUM CARBONATE 500 MG TAB.CHEW GT SCH (21:19)
[2016-10-02] MEDS: [UNRECOGNIZED DRUG - OTHER] GT SCH (21:19)
[2016-10-02 21:40] VITALS: BP 101/67
[2016-10-03] MEDS: BACLOFEN 10 MG TABLET GT SCH ×4 (00:18→17:11)
[2016-10-03] MEDS: BLOOD SUGAR DIAGNOSTIC 1 EACH STRIP VI SCH ×4 (00:18→17:11)
[2016-10-03] MEDS: INSULIN REGULAR, HUMAN 300 UNIT/3 ML VIAL SQ PRN ×4 (01:06→17:12)
[2016-10-03] MEDS: NUTRISOURCE FIBER 4 GM PACKET GT SCH ×3 (06:12→21:24)
[2016-10-03 08:00] VITALS: BP 114/45
[2016-10-03] MEDS: LEVETIRACETAM 500 MG/5 ML LIQUID UDC GT SCH ×2 (08:17→21:18)
[2016-10-03] MEDS: FUROSEMIDE 40 MG/4 ML GT SCH (08:17)
[2016-10-03] MEDS: FAMOTIDINE 20 MG TABLET GT SCH ×2 (08:17→21:19)
[2016-10-03] MEDS: INSULIN DETEMIR 300 UNIT/3 ML CARTRIDGE SQ SCH ×2 (08:17→21:22)
[2016-10-03] MEDS: PHENOBARBITAL GT SCH ×2 (08:17→21:19)
[2016-10-03] MEDS: ACIDOPHILUS/BULGARICUS CHEW TAB GT SCH ×2 (08:17→21:18)
[2016-10-03] MEDS: HYDROGEN PEROXIDE 3% 118 ML BOTTLE TP SCH ×2 (08:18→21:24)
[2016-10-03] MEDS: COD LIVER OIL/ZINC OXIDE OINT 113 GM TUBE TOP SCH ×2 (08:18→21:24)
[2016-10-03] MEDS: VITAMINS A AND D OINT TP SCH (08:18)
[2016-10-03] MEDS: POTASSIUM CHLORIDE 20 MEQ TAB.PRT.SR XX SCH ×2 (08:18→17:11)
--- NOTE | 2016-10-03 13:00 | NUR ---
SEEN BY DENISE FULLER.
[2016-10-03 20:57] VITALS: BP 110/59
[2016-10-03] MEDS: [UNRECOGNIZED DRUG - OTHER] GT SCH (21:19)
[2016-10-03] MEDS: FISH OIL GT SCH (21:19)
[2016-10-03] MEDS: CALCIUM CARBONATE 500 MG TAB.CHEW GT SCH (21:19)
[2016-10-04] MEDS: BACLOFEN 10 MG TABLET GT SCH ×5 (00:27→23:49)
[2016-10-04] MEDS: BLOOD SUGAR DIAGNOSTIC 1 EACH STRIP VI SCH ×5 (00:27→23:53)
[2016-10-04] MEDS: INSULIN REGULAR, HUMAN 300 UNIT/3 ML VIAL SQ PRN ×5 (00:27→23:58)
--- NOTE | 2016-10-04 00:59 | NUR ---
PT ON CONT HT 50 VENT WITH SHILEY # [address] AND SECURED, WITH SAME CURRENT VENT SETTINGS, NO VENT CHANGES MADE, SUCTIONED LIGHT PALE YELL TINGE SECRETIONS, WITH GOOD COUGH EFFORT, CHECK CUFF, CHANGE HME, PT DOES ASSIST AT TIMES, ALL ALARMS OK, AMBU BAG AT BEDSIDE, PIP 30-33CM APPROX. D MARTY TANK COOPER Addendum: 10/04/16 at 0100 by ETHEL FERGUSON RT Amended: Links added.
[2016-10-04] MEDS: NUTRISOURCE FIBER 4 GM PACKET GT SCH ×3 (05:12→21:03)
--- NOTE | 2016-10-04 07:15 | NUR ---
PT RECEIVED ON CMV WITH TRACH SECURED AND INTACT. AIRWAY PATENT. PT APPEARED COMFORTABLE TOLERATING CURRENT VENT SETTINGS FINE. BREATH SOUNDS MINIMAL RHONCHI. PRN SX PERFORMED. PT HAD SMALL SCANT SEMI THICK OFF WHITE YELLOWISH SECRETIONS. HEAD OF THE BED ELEVATED GREATER THAN 30 DEGREE ANGLE. VENT ALARMS SET AND AUDIBLE. VENT PLUGGED INTO RED OUTLET.
[2016-10-04 08:00] VITALS: BP 105/67
[2016-10-04] MEDS: ACIDOPHILUS/BULGARICUS CHEW TAB GT SCH ×2 (08:07→20:59)
[2016-10-04] MEDS: LEVETIRACETAM 500 MG/5 ML LIQUID UDC GT SCH ×2 (08:08→20:59)
[2016-10-04] MEDS: FUROSEMIDE 40 MG/4 ML GT SCH (08:08)
[2016-10-04] MEDS: PHENOBARBITAL GT SCH ×2 (08:11→21:00)
[2016-10-04] MEDS: FAMOTIDINE 20 MG TABLET GT SCH ×2 (08:12→21:00)
[2016-10-04] MEDS: INSULIN DETEMIR 300 UNIT/3 ML CARTRIDGE SQ SCH ×2 (08:15→21:02)
[2016-10-04] MEDS: HYDROGEN PEROXIDE 3% 118 ML BOTTLE TP SCH ×2 (08:16→21:02)
[2016-10-04] MEDS: VITAMINS A AND D OINT TP SCH (08:16)
[2016-10-04] MEDS: POTASSIUM CHLORIDE 20 MEQ TAB.PRT.SR XX SCH ×2 (08:16→17:38)
[2016-10-04] MEDS: COD LIVER OIL/ZINC OXIDE OINT 113 GM TUBE TOP SCH ×2 (08:16→21:02)
[2016-10-04] MEDS: FISH OIL GT SCH (21:00)
[2016-10-04] MEDS: [UNRECOGNIZED DRUG - OTHER] GT SCH (21:00)
[2016-10-04] MEDS: CALCIUM CARBONATE 500 MG TAB.CHEW GT SCH (21:01)
[2016-10-04] MEDS: TRIAMCINOLONE ACET 0.1% CREAM 15 GM TUBE TP SCH (21:02)
[2016-10-04] MEDS: NYSTATIN CREAM 30 GM TUBE TP SCH (21:03)
[2016-10-04 22:11] VITALS: BP 121/62
[2016-10-05] MEDS: INSULIN REGULAR, HUMAN 300 UNIT/3 ML VIAL SQ PRN ×3 (05:18→18:08)
[2016-10-05] MEDS: BACLOFEN 10 MG TABLET GT SCH ×3 (05:19→17:37)
[2016-10-05] MEDS: NUTRISOURCE FIBER 4 GM PACKET GT SCH ×3 (05:19→21:34)
[2016-10-05] MEDS: BLOOD SUGAR DIAGNOSTIC 1 EACH STRIP VI SCH ×3 (05:19→18:08)
[2016-10-05 06:20] VITALS: BP 99/50
[2016-10-05] MEDS: ACIDOPHILUS/BULGARICUS CHEW TAB GT SCH ×2 (08:08→21:32)
[2016-10-05] MEDS: LEVETIRACETAM 500 MG/5 ML LIQUID UDC GT SCH ×2 (08:08→21:32)
[2016-10-05] MEDS: PHENOBARBITAL GT SCH ×2 (08:09→21:33)
[2016-10-05] MEDS: FUROSEMIDE 40 MG/4 ML GT SCH (08:10)
[2016-10-05] MEDS: FAMOTIDINE 20 MG TABLET GT SCH ×2 (08:10→21:33)
[2016-10-05] MEDS: VITAMINS A AND D OINT TP SCH (08:11)
[2016-10-05] MEDS: POTASSIUM CHLORIDE 20 MEQ TAB.PRT.SR XX SCH ×2 (08:11→17:37)
[2016-10-05] MEDS: COD LIVER OIL/ZINC OXIDE OINT 113 GM TUBE TOP SCH ×2 (08:11→21:33)
[2016-10-05] MEDS: HYDROGEN PEROXIDE 3% 118 ML BOTTLE TP SCH ×2 (08:11→21:33)
[2016-10-05] MEDS: TRIAMCINOLONE ACET 0.1% CREAM 15 GM TUBE TP SCH ×2 (08:11→21:33)
[2016-10-05] MEDS: DIABETICSOURCE AC 1000ML LIQUID GT PRN (08:11)
[2016-10-05] MEDS: NYSTATIN CREAM 30 GM TUBE TP SCH ×2 (08:11→21:34)
[2016-10-05] MEDS: INSULIN DETEMIR 300 UNIT/3 ML CARTRIDGE SQ SCH ×2 (08:12→21:35)
--- NOTE | 2016-10-05 09:53 | NUR ---
Seen by Kasey COLLAZO with no new order.
--- NOTE | 2016-10-05 10:45 | NUR ---
ESTEFANÍA assisted patient with completing and obtaining Dr. Gilbert's signature on the "attending physician's statement of continued disability" form from [facility]. Patient's father came to the hospital this morning to apple picking supervisor the completed form. Per patient's father's request, ESTEFANÍA also provided copies of patient's bank statements for 2015, 2016, and 2016. A copy of the form filed in patient's file in SW office.
[2016-10-05 10:59] VITALS: BP 99/50
--- NOTE | 2016-10-05 11:47 | NUR ---
Pharmacy Review for upcoming 10/23 IDT Meeting -VS: TEMP 96.7 HR 67 BP 114/45 -LABS: (from 09/11/16) WBC 3.5H/H 9.4/29.1PLT 114 NA 149K 4.1CL 106CO2 32BUN/SCR 32/0.9 BS 75CA 8.2 -MEDICATION USE REVIEWED: > Pt is not on any anti-psych medication > On Phenobarbital 50mg BID, last level 21 (15-39)(06/26/16); and 23 (06/30) >On Keppra 750mg BID, Calculated CrCl 65.4 ml/min, last level was 43.8 (10-40) (06/16/16), renal function appropriate for dose > Pt insulin regimen adjusted. Pt now on levemir 60 units HS, levemir 30 units AM + a custom sliding scale of regular insulin + 8units of regular insulin in addition. BS in September- since adjustment. > PRN MED USAGE: (September) Tylenol 650mg mild-mod pain none used Tylenol 650mg for temp none used [place] 5/325mg for mod-severe pain (6-10) none used Artificial tears none used -NEW ORDERS NOTED: > Insulin regimen adjusted to aforementioned schedule from levemir 36 units AM to 30 units AM and levemir HS decreased from 66 units to 60 units. Changes made on 09/14. > GT site cellulitis treated with vanco (09/07-09/14), odell (09/08-09/12), and triple abx ointment (09/08-09/12) > Rx recommended d/c prn artificial tears from lack of use x 3 months, Md elected to continue > Rx recommended repeat labs for keppra renal function monitoring, labs ordered 09/11 and . Keppra dosing appropriate. Recommendations > No further recommendations at this time, will continue to monitor Addendum: 10/10/16 at 1257 by ZENAIDA CONNOLLY ADM Update from today 10/10/16 IDT Meeting: > Pt was reviewed and discussed, no acute changes. Recent change in insulin regimen noted, has been in process of adjustment based on pt's BG reads. > No medication concerns noted at this time, will continue to monitor
--- NOTE | 2016-10-05 12:11 | NUR ---
Patient is scheduled to be seen by the dentist Dr. Lowry on October 16 for teeth cleaning.
--- NOTE | 2016-10-05 20:51 | NUR ---
Received pt on HT-50 vent with AC-12, Vt-450, PEEP+5, FIO2-35%, trached with Shiley#6 DCT trach, which is in the place and secure. No distress noted. Airway care done, pt responded to physical stimuli. Resus. bag and back up trach at bedside. Vent and alarms on and audible.
[2016-10-05] MEDS: FISH OIL GT SCH (21:33)
[2016-10-05] MEDS: [UNRECOGNIZED DRUG - OTHER] GT SCH (21:33)
[2016-10-05] MEDS: CALCIUM CARBONATE 500 MG TAB.CHEW GT SCH (21:33)
[2016-10-05 21:53] VITALS: BP 99/54
[2016-10-06] MEDS: BLOOD SUGAR DIAGNOSTIC 1 EACH STRIP VI SCH ×4 (00:19→17:58)
[2016-10-06] MEDS: BACLOFEN 10 MG TABLET GT SCH ×4 (00:19→17:41)
[2016-10-06] MEDS: INSULIN REGULAR, HUMAN 300 UNIT/3 ML VIAL SQ PRN ×2 (00:20→18:09)
[2016-10-06] MEDS: NUTRISOURCE FIBER 4 GM PACKET GT SCH ×3 (05:08→21:24)
[2016-10-06] MEDS: LEVETIRACETAM 500 MG/5 ML LIQUID UDC GT SCH ×2 (09:17→21:19)
[2016-10-06] MEDS: ACIDOPHILUS/BULGARICUS CHEW TAB GT SCH ×2 (09:17→21:19)
[2016-10-06] MEDS: FAMOTIDINE 20 MG TABLET GT SCH ×2 (09:19→21:22)
[2016-10-06] MEDS: FUROSEMIDE 40 MG/4 ML GT SCH (09:19)
[2016-10-06] MEDS: COD LIVER OIL/ZINC OXIDE OINT 113 GM TUBE TOP SCH ×2 (09:20→21:24)
[2016-10-06] MEDS: HYDROGEN PEROXIDE 3% 118 ML BOTTLE TP SCH ×2 (09:20→21:24)
[2016-10-06] MEDS: TRIAMCINOLONE ACET 0.1% CREAM 15 GM TUBE TP SCH ×2 (09:21→21:24)
[2016-10-06] MEDS: NYSTATIN CREAM 30 GM TUBE TP SCH ×2 (09:21→21:24)
[2016-10-06] MEDS: POTASSIUM CHLORIDE 20 MEQ TAB.PRT.SR XX SCH ×2 (09:22→17:41)
[2016-10-06] MEDS: VITAMINS A AND D OINT TP SCH (09:23)
[2016-10-06] MEDS: INSULIN DETEMIR 300 UNIT/3 ML CARTRIDGE SQ SCH ×2 (09:32→21:40)
[2016-10-06] MEDS: PHENOBARBITAL GT SCH ×2 (09:34→21:20)
[2016-10-06 10:33] VITALS: BP 108/49
[2016-10-06] MEDS: [UNRECOGNIZED DRUG - OTHER] GT SCH (21:20)
[2016-10-06] MEDS: FISH OIL GT SCH (21:20)
[2016-10-06] MEDS: CALCIUM CARBONATE 500 MG TAB.CHEW GT SCH (21:23)
[2016-10-06] MEDS: DIABETICSOURCE AC 1000ML LIQUID GT PRN (21:40)
[2016-10-06 21:56] VITALS: BP 101/51
[2016-10-07] MEDS: INSULIN REGULAR, HUMAN 300 UNIT/3 ML VIAL SQ PRN ×3 (00:47→17:18)
[2016-10-07] MEDS: BACLOFEN 10 MG TABLET GT SCH ×4 (00:47→17:14)
[2016-10-07] MEDS: BLOOD SUGAR DIAGNOSTIC 1 EACH STRIP VI SCH ×4 (00:47→17:15)
--- NOTE | 2016-10-07 04:19 | NUR ---
PT ON CONT HT 50 VENT WITH SHILEY #[address] AND SECURED, WITH SAME CURRENT VENT SETTINGS, PT DOES ASSIST AT TIMES, PIP 30-32 CM APPROX, CHECK CUFF, CHANGE HME, SUCTIONED LIGHT PALE YELL TINGE SECRETIONS, WITH GOOD COUGH EFFORT, ALL ALARMS OK, AMBU BAG AT BEDSIDE, NO VENT CHANGES MADE AT THIS TIME, PT STABLE Andi MANUAL LATHE OPERATOR Addendum: 10/07/16 at 8102 by ETHEL FERGUSON RT Amended: Links added.
[2016-10-07] MEDS: NUTRISOURCE FIBER 4 GM PACKET GT SCH ×3 (05:10→21:51)
[2016-10-07] MEDS: ACIDOPHILUS/BULGARICUS CHEW TAB GT SCH ×2 (09:23→21:49)
[2016-10-07] MEDS: INSULIN DETEMIR 300 UNIT/3 ML CARTRIDGE SQ SCH ×2 (09:28→21:00)
[2016-10-07] MEDS: LEVETIRACETAM 500 MG/5 ML LIQUID UDC GT SCH ×2 (09:28→21:49)
[2016-10-07] MEDS: FAMOTIDINE 20 MG TABLET GT SCH ×2 (09:31→21:50)
[2016-10-07] MEDS: PHENOBARBITAL GT SCH ×2 (09:31→21:58)
[2016-10-07] MEDS: FUROSEMIDE 40 MG/4 ML GT SCH (09:31)
[2016-10-07] MEDS: NYSTATIN CREAM 30 GM TUBE TP SCH ×2 (09:32→21:51)
[2016-10-07] MEDS: POTASSIUM CHLORIDE 20 MEQ TAB.PRT.SR XX SCH ×2 (09:32→17:14)
[2016-10-07] MEDS: COD LIVER OIL/ZINC OXIDE OINT 113 GM TUBE TOP SCH ×2 (09:32→21:51)
[2016-10-07] MEDS: VITAMINS A AND D OINT TP SCH (09:32)
[2016-10-07] MEDS: TRIAMCINOLONE ACET 0.1% CREAM 15 GM TUBE TP SCH ×2 (09:32→21:51)
[2016-10-07] MEDS: HYDROGEN PEROXIDE 3% 118 ML BOTTLE TP SCH ×2 (09:32→21:51)
--- NOTE | 2016-10-07 19:20 | NUR ---
PT RECEIVED ON CONTINUOUS MECHANICAL VENTILATION WITH VENT SETTINGS OF AC 12, VT 450, PEEP +5, FIO2 35%. PT APPEARS TO BE TOLERATING CURRENT SETTINGS AT THIS TIME. SPO2 99%. NO SOB NOTED. SH. 6DCT TRACH IS PATENT AND SECURED WITH TRACH TIES. HME AND PASCUAL CHANGED. SUCTIONED MODERATE AMOUNT OF YELLOW SECRETIONS. VENT ALARMS CHECKED, ARE ON AND AUDIBLE. AMBU BAG AND BACK UP TRACH ARE AT BEDSIDE. VENT PLUGGED INTO RED EMERGENCY OUTLET. WILL CONTINUE TO MONITOR PT THROUGHOUT SHIFT.
[2016-10-07] MEDS: [UNRECOGNIZED DRUG - OTHER] GT SCH (21:50)
[2016-10-07] MEDS: FISH OIL GT SCH (21:50)
[2016-10-07] MEDS: CALCIUM CARBONATE 500 MG TAB.CHEW GT SCH (21:51)
[2016-10-07 22:14] VITALS: BP 109/52
[2016-10-08] MEDS: BLOOD SUGAR DIAGNOSTIC 1 EACH STRIP VI SCH ×4 (00:22→17:22)
[2016-10-08] MEDS: BACLOFEN 10 MG TABLET GT SCH ×4 (00:22→17:24)
[2016-10-08] MEDS: INSULIN REGULAR, HUMAN 300 UNIT/3 ML VIAL SQ PRN ×3 (00:23→12:56)
[2016-10-08] MEDS: DIABETICSOURCE AC 1000ML LIQUID GT PRN (01:38)
[2016-10-08] MEDS: NUTRISOURCE FIBER 4 GM PACKET GT SCH ×3 (05:27→21:42)
[2016-10-08 08:00] VITALS: BP 121/61
[2016-10-08] MEDS: INSULIN DETEMIR 300 UNIT/3 ML CARTRIDGE SQ SCH ×2 (08:34→21:38)
[2016-10-08] MEDS: ACIDOPHILUS/BULGARICUS CHEW TAB GT SCH ×2 (08:34→21:39)
[2016-10-08] MEDS: LEVETIRACETAM 500 MG/5 ML LIQUID UDC GT SCH ×2 (08:36→21:39)
[2016-10-08] MEDS: FAMOTIDINE 20 MG TABLET GT SCH ×2 (08:37→21:41)
[2016-10-08] MEDS: FUROSEMIDE 40 MG/4 ML GT SCH (08:37)
[2016-10-08] MEDS: COD LIVER OIL/ZINC OXIDE OINT 113 GM TUBE TOP SCH ×2 (08:37→21:41)
[2016-10-08] MEDS: PHENOBARBITAL GT SCH ×2 (08:37→21:41)
[2016-10-08] MEDS: POTASSIUM CHLORIDE 20 MEQ TAB.PRT.SR XX SCH ×2 (08:38→17:29)
[2016-10-08] MEDS: VITAMINS A AND D OINT TP SCH (08:38)
[2016-10-08] MEDS: HYDROGEN PEROXIDE 3% 118 ML BOTTLE TP SCH ×2 (08:38→21:41)
[2016-10-08] MEDS: NYSTATIN CREAM 30 GM TUBE TP SCH ×2 (08:38→21:42)
[2016-10-08] MEDS: TRIAMCINOLONE ACET 0.1% CREAM 15 GM TUBE TP SCH ×2 (08:38→21:42)
[2016-10-08 21:20] VITALS: BP 104/60
[2016-10-08] MEDS: [UNRECOGNIZED DRUG - OTHER] GT SCH (21:40)
[2016-10-08] MEDS: FISH OIL GT SCH (21:40)
[2016-10-08] MEDS: CALCIUM CARBONATE 500 MG TAB.CHEW GT SCH (21:41)
[2016-10-09] MEDS: INSULIN REGULAR, HUMAN 300 UNIT/3 ML VIAL SQ PRN ×3 (01:15→18:28)
[2016-10-09] MEDS: DIABETICSOURCE AC 1000ML LIQUID GT PRN (02:17)
[2016-10-09] MEDS: BLOOD SUGAR DIAGNOSTIC 1 EACH STRIP VI SCH ×4 (05:13→17:59)
[2016-10-09] MEDS: NUTRISOURCE FIBER 4 GM PACKET GT SCH ×3 (05:13→21:14)
[2016-10-09] MEDS: BACLOFEN 10 MG TABLET GT SCH ×4 (05:13→18:27)
[2016-10-09 08:00] VITALS: BP 90/56
[2016-10-09] MEDS: ACIDOPHILUS/BULGARICUS CHEW TAB GT SCH ×2 (09:01→21:13)
[2016-10-09] MEDS: LEVETIRACETAM 500 MG/5 ML LIQUID UDC GT SCH ×2 (09:01→21:13)
[2016-10-09] MEDS: FUROSEMIDE 40 MG/4 ML GT SCH (09:02)
[2016-10-09] MEDS: PHENOBARBITAL GT SCH ×2 (09:02→21:14)
[2016-10-09] MEDS: FAMOTIDINE 20 MG TABLET GT SCH ×2 (09:04→21:14)
[2016-10-09] MEDS: HYDROGEN PEROXIDE 3% 118 ML BOTTLE TP SCH ×2 (09:04→21:14)
[2016-10-09] MEDS: COD LIVER OIL/ZINC OXIDE OINT 113 GM TUBE TOP SCH ×2 (09:04→21:14)
[2016-10-09] MEDS: TRIAMCINOLONE ACET 0.1% CREAM 15 GM TUBE TP SCH ×2 (09:04→21:14)
[2016-10-09] MEDS: POTASSIUM CHLORIDE 20 MEQ TAB.PRT.SR XX SCH ×2 (09:05→17:58)
[2016-10-09] MEDS: NYSTATIN CREAM 30 GM TUBE TP SCH ×2 (09:05→21:14)
[2016-10-09] MEDS: VITAMINS A AND D OINT TP SCH (09:05)
[2016-10-09] MEDS: INSULIN DETEMIR 300 UNIT/3 ML CARTRIDGE SQ SCH ×2 (09:09→21:12)
[2016-10-09] MEDS: CALCIUM CARBONATE 500 MG TAB.CHEW GT SCH (21:14)
[2016-10-09] MEDS: [UNRECOGNIZED DRUG - OTHER] GT SCH (21:14)
[2016-10-09] MEDS: FISH OIL GT SCH (21:14)
[2016-10-09 21:22] VITALS: BP 95/61
[2016-10-10] MEDS: BLOOD SUGAR DIAGNOSTIC 1 EACH STRIP VI SCH ×4 (00:25→17:27)
[2016-10-10] MEDS: BACLOFEN 10 MG TABLET GT SCH ×4 (00:26→17:27)
[2016-10-10] MEDS: DIABETICSOURCE AC 1000ML LIQUID GT PRN (02:44)
[2016-10-10] MEDS: NUTRISOURCE FIBER 4 GM PACKET GT SCH ×3 (05:16→21:06)
[2016-10-10 08:00] VITALS: BP 113/59
[2016-10-10] MEDS: ACIDOPHILUS/BULGARICUS CHEW TAB GT SCH ×2 (08:31→21:04)
[2016-10-10] MEDS: LEVETIRACETAM 500 MG/5 ML LIQUID UDC GT SCH ×2 (08:32→21:04)
[2016-10-10] MEDS: PHENOBARBITAL GT SCH ×2 (08:34→21:05)
[2016-10-10] MEDS: FUROSEMIDE 40 MG/4 ML GT SCH (08:34)
[2016-10-10] MEDS: FAMOTIDINE 20 MG TABLET GT SCH ×2 (08:36→21:05)
[2016-10-10] MEDS: COD LIVER OIL/ZINC OXIDE OINT 113 GM TUBE TOP SCH ×2 (08:41→21:05)
[2016-10-10] MEDS: INSULIN DETEMIR 300 UNIT/3 ML CARTRIDGE SQ SCH ×2 (08:41→21:03)
[2016-10-10] MEDS: HYDROGEN PEROXIDE 3% 118 ML BOTTLE TP SCH ×2 (08:42→21:06)
[2016-10-10] MEDS: TRIAMCINOLONE ACET 0.1% CREAM 15 GM TUBE TP SCH ×2 (08:42→21:06)
[2016-10-10] MEDS: NYSTATIN CREAM 30 GM TUBE TP SCH ×2 (08:43→21:06)
[2016-10-10] MEDS: VITAMINS A AND D OINT TP SCH (08:43)
[2016-10-10] MEDS: POTASSIUM CHLORIDE 20 MEQ TAB.PRT.SR XX SCH ×2 (08:45→17:26)
[2016-10-10] MEDS: INSULIN REGULAR, HUMAN 300 UNIT/3 ML VIAL SQ PRN ×2 (12:16→17:28)
--- NOTE | 2016-10-10 14:26 | NUR ---
INTERDISCIPLINARY PLAN OF CARE CONFERENCE was held today. Patient's family was invited to the meeting, but they were unable to attend. Dr. Gilbert and the Interdisciplinary Team reviewed the current plan of care in detail. RN provided updates on patient's current medical condition and medications. See RN IDT conference notes. No major changes were reported at this time. See also all other disciplines IDT notes and physician's progress notes for additional details.
--- NOTE | 2016-10-10 15:37 | NUR ---
SEEN BY DR. VICK FULLER.
[2016-10-10 20:49] VITALS: BP 100/60
[2016-10-10] MEDS: [UNRECOGNIZED DRUG - OTHER] GT SCH (21:05)
[2016-10-10] MEDS: FISH OIL GT SCH (21:05)
[2016-10-10] MEDS: CALCIUM CARBONATE 500 MG TAB.CHEW GT SCH (21:05)
[2016-10-11] MEDS: BACLOFEN 10 MG TABLET GT SCH ×4 (00:19→17:10)
[2016-10-11] MEDS: BLOOD SUGAR DIAGNOSTIC 1 EACH STRIP VI SCH ×4 (00:19→17:10)
[2016-10-11] MEDS: DIABETICSOURCE AC 1000ML LIQUID GT PRN (03:30)
[2016-10-11] MEDS: NUTRISOURCE FIBER 4 GM PACKET GT SCH ×3 (05:20→21:05)
[2016-10-11] MEDS: INSULIN REGULAR, HUMAN 300 UNIT/3 ML VIAL SQ PRN ×3 (05:53→17:11)
--- NOTE | 2016-10-11 07:50 | NUR ---
Pt received in bed, laying semi-Huff's with eyes open.. Pt unable to communicate - obtunded, withdraws to physical stimuli.. Pt trach: Aleisha [address]/secure with tie, no visible sign of irritation/breakdown noted around/under trach tie.. Trach site clean/dry at this time, stoma appears normal, no discoloration noted.. Continuous mechanical ventilation, vent: HT-50 w/settings: A/C 12, Vt 450, PEEP +5, FiO2 35%, tolerating well, no changes made to vent settings at this time.. Vent alarms checked, alarms are on/audible and functioning properly at this time.. BVM/back up trach at bedside.. No s/s of respiratory distress/S.O.B noted.. Will continue to monitor..
[2016-10-11 08:00] VITALS: BP 125/59
[2016-10-11] MEDS: INSULIN DETEMIR 300 UNIT/3 ML CARTRIDGE SQ SCH ×2 (08:52→20:57)
[2016-10-11] MEDS: ACIDOPHILUS/BULGARICUS CHEW TAB GT SCH ×2 (08:53→20:53)
[2016-10-11] MEDS: LEVETIRACETAM 500 MG/5 ML LIQUID UDC GT SCH ×2 (08:54→20:53)
[2016-10-11] MEDS: FUROSEMIDE 40 MG/4 ML GT SCH (08:57)
[2016-10-11] MEDS: PHENOBARBITAL GT SCH ×2 (08:57→20:54)
[2016-10-11] MEDS: VITAMINS A AND D OINT TP SCH (08:58)
[2016-10-11] MEDS: COD LIVER OIL/ZINC OXIDE OINT 113 GM TUBE TOP SCH ×2 (08:58→20:59)
[2016-10-11] MEDS: POTASSIUM CHLORIDE 20 MEQ TAB.PRT.SR XX SCH ×2 (08:58→17:09)
[2016-10-11] MEDS: FAMOTIDINE 20 MG TABLET GT SCH ×2 (08:58→20:54)
[2016-10-11] MEDS: HYDROGEN PEROXIDE 3% 118 ML BOTTLE TP SCH ×2 (08:58→20:59)
[2016-10-11] MEDS: NYSTATIN CREAM 30 GM TUBE TP SCH ×2 (08:58→20:59)
[2016-10-11] MEDS: TRIAMCINOLONE ACET 0.1% CREAM 15 GM TUBE TP SCH ×2 (08:59→20:59)
[2016-10-11] MEDS: FISH OIL GT SCH (20:54)
[2016-10-11] MEDS: [UNRECOGNIZED DRUG - OTHER] GT SCH (20:54)
[2016-10-11] MEDS: CALCIUM CARBONATE 500 MG TAB.CHEW GT SCH (20:55)
[2016-10-11 21:57] VITALS: BP 114/62
[2016-10-12] MEDS: BACLOFEN 10 MG TABLET GT SCH ×5 (00:39→23:27)
[2016-10-12] MEDS: BLOOD SUGAR DIAGNOSTIC 1 EACH STRIP VI SCH ×5 (00:41→23:27)
[2016-10-12] MEDS: INSULIN REGULAR, HUMAN 300 UNIT/3 ML VIAL SQ PRN ×2 (00:45→05:29)
--- NOTE | 2016-10-12 02:14 | NUR ---
PT ON CONT HT 50 VENT WITH SHILEY # [address] AND SECURED, WITH SAME CURRENT VENT SETTINGS, PT DOES ASSIST AT TIMES, CHECK CUFF, CHANGE HME, SUCTIONED LIGHT PALE YELL TINGE SECRETIONS, WITH GOOD COUGH EFFORT, NO VENT CHANGES MADE AT THIS TIME, ALL ALARMS OK, AMBU BAG AT BEDSIDE.Andi CHAKRABORTYP Addendum: 10/12/16 at 0215 by ETHEL FERGUSON RT Amended: Links added.
[2016-10-12] MEDS: NUTRISOURCE FIBER 4 GM PACKET GT SCH ×3 (05:29→22:16)
[2016-10-12 08:00] VITALS: BP 97/52
--- NOTE | 2016-10-12 08:06 | NUR ---
RECEIVED PT ON HT-50 VENT. CURRENT SETTINGS ON VENT ARE AC 12, VT 450, PEEP +5, 35% FIO2. APPEARS TO BE TOLERATING SETTINGS. NO DISTRESS NOTED. NO CHANGES MADE ON VENT AT THIS TIME. SH. 6DCT TRACH IS PATENT AND SECURED WITH TRACH TIES. HME CHANGED. VENT CHECK DONE. VENT ALARM PARAMETERS CHECKED. ALARMS ON AND AUDIBLE. HME CHANGED. SUCTIONED MODERATE AMOUNT OF YELLOW SECRETIONS. BVM AND BACK UPT KRISTOPHER ARE AT BESIDE. WILL CONTINUE TO MONITOR.
[2016-10-12] MEDS: ACIDOPHILUS/BULGARICUS CHEW TAB GT SCH ×2 (08:37→20:40)
[2016-10-12] MEDS: LEVETIRACETAM 500 MG/5 ML LIQUID UDC GT SCH ×2 (08:37→20:41)
[2016-10-12] MEDS: PHENOBARBITAL GT SCH ×2 (08:37→20:49)
[2016-10-12] MEDS: FUROSEMIDE 40 MG/4 ML GT SCH (08:37)
[2016-10-12] MEDS: FAMOTIDINE 20 MG TABLET GT SCH ×2 (08:37→20:49)
[2016-10-12] MEDS: INSULIN DETEMIR 300 UNIT/3 ML CARTRIDGE SQ SCH ×2 (08:39→20:38)
[2016-10-12] MEDS: VITAMINS A AND D OINT TP SCH (08:39)
[2016-10-12] MEDS: COD LIVER OIL/ZINC OXIDE OINT 113 GM TUBE TOP SCH ×2 (08:39→20:49)
[2016-10-12] MEDS: NYSTATIN CREAM 30 GM TUBE TP SCH ×2 (08:39→20:49)
[2016-10-12] MEDS: POTASSIUM CHLORIDE 20 MEQ TAB.PRT.SR XX SCH ×2 (08:39→17:25)
[2016-10-12] MEDS: TRIAMCINOLONE ACET 0.1% CREAM 15 GM TUBE TP SCH ×2 (08:39→20:49)
[2016-10-12] MEDS: HYDROGEN PEROXIDE 3% 118 ML BOTTLE TP SCH ×2 (08:39→20:49)
--- NOTE | 2016-10-12 19:55 | NUR ---
Pt received in semi diaz position, has limited response to verbal stimuli, and is on Continuous mechanical ventilation via trach. Trach is a [employer] 6 DCT. Trach is patent and secure. No irritation or redness noted around stoma or trach tie. Tolerating vent settings well. SpO2-98%. Pt is on [place] HT-50 vent with settings of A/C-12, VT-450, PEEP +5, FIO2-35%. HME changed. PPE used. Vent alarm parameters checked, on and audible. Vent plugged into red emergency outlet. Bag/valve/mask and back up trach bedside. Will continue to monitor.
[2016-10-12] MEDS: FISH OIL GT SCH (20:42)
[2016-10-12] MEDS: [UNRECOGNIZED DRUG - OTHER] GT SCH (20:42)
[2016-10-12] MEDS: CALCIUM CARBONATE 500 MG TAB.CHEW GT SCH (20:49)
[2016-10-12 22:21] VITALS: BP 115/61
[2016-10-13] MEDS: BLOOD SUGAR DIAGNOSTIC 1 EACH STRIP VI SCH ×3 (05:06→17:05)
[2016-10-13] MEDS: NUTRISOURCE FIBER 4 GM PACKET GT SCH ×3 (05:06→21:16)
[2016-10-13] MEDS: BACLOFEN 10 MG TABLET GT SCH ×3 (05:06→17:05)
[2016-10-13 08:00] VITALS: BP 125/59
[2016-10-13] MEDS: ACIDOPHILUS/BULGARICUS CHEW TAB GT SCH ×2 (08:31→21:15)
[2016-10-13] MEDS: LEVETIRACETAM 500 MG/5 ML LIQUID UDC GT SCH ×2 (08:31→21:15)
[2016-10-13] MEDS: FUROSEMIDE 40 MG/4 ML GT SCH (08:32)
[2016-10-13] MEDS: VITAMINS A AND D OINT TP SCH (08:33)
[2016-10-13] MEDS: TRIAMCINOLONE ACET 0.1% CREAM 15 GM TUBE TP SCH ×2 (08:33→21:16)
[2016-10-13] MEDS: PHENOBARBITAL GT SCH ×2 (08:33→21:15)
[2016-10-13] MEDS: POTASSIUM CHLORIDE 20 MEQ TAB.PRT.SR XX SCH ×2 (08:33→17:05)
[2016-10-13] MEDS: HYDROGEN PEROXIDE 3% 118 ML BOTTLE TP SCH ×2 (08:33→21:16)
[2016-10-13] MEDS: COD LIVER OIL/ZINC OXIDE OINT 113 GM TUBE TOP SCH ×2 (08:33→21:16)
[2016-10-13] MEDS: NYSTATIN CREAM 30 GM TUBE TP SCH ×2 (08:33→21:16)
[2016-10-13] MEDS: FAMOTIDINE 20 MG TABLET GT SCH ×2 (08:33→21:16)
[2016-10-13] MEDS: DIABETICSOURCE AC 1000ML LIQUID GT PRN (08:57)
[2016-10-13] MEDS: INSULIN DETEMIR 300 UNIT/3 ML CARTRIDGE SQ SCH ×2 (08:57→21:24)
[2016-10-13] MEDS: INSULIN REGULAR, HUMAN 300 UNIT/3 ML VIAL SQ PRN ×2 (12:14→17:06)
--- NOTE | 2016-10-13 19:55 | NUR ---
Pt received on HT-50 vent with AC-12, Vt-450, PEEP+5, FIO2-35%, trached with Shiley#6 DCT trach, which is in the place and secure. No sob noted. Airway care done, pt responded to physical stimuli. Resus. bag and back up trach at bedside. Vent and alarms checked and reset.
[2016-10-13 20:37] VITALS: BP 117/61
[2016-10-13] MEDS: [UNRECOGNIZED DRUG - OTHER] GT SCH (21:15)
[2016-10-13] MEDS: FISH OIL GT SCH (21:15)
[2016-10-13] MEDS: CALCIUM CARBONATE 500 MG TAB.CHEW GT SCH (21:16)
[2016-10-14] MEDS: BACLOFEN 10 MG TABLET GT SCH ×4 (00:20→17:55)
[2016-10-14] MEDS: BLOOD SUGAR DIAGNOSTIC 1 EACH STRIP VI SCH ×4 (00:20→17:56)
[2016-10-14] MEDS: INSULIN REGULAR, HUMAN 300 UNIT/3 ML VIAL SQ PRN ×3 (00:20→17:56)
[2016-10-14] MEDS: NUTRISOURCE FIBER 4 GM PACKET GT SCH ×3 (05:08→21:27)
[2016-10-14] MEDS: DIABETICSOURCE AC 1000ML LIQUID GT PRN (05:09)
[2016-10-14 08:00] VITALS: BP 112/64
--- NOTE | 2016-10-14 08:48 | NUR ---
PT RECEIVED ON HT-50 VENT, SETTINGS ARE AC 12, Vt 450, +5, 35% FIO2. PT TOLERATING CURRENT SETTINGS WELL, NO S\S OF RESPIRATORY DISTRESS NOTED. SHILEY 6 TRACH IS PATENT AND SECURED WITH TIES. SUCTIONED AND LAVAGED SMALL AMOUNTS OF YELLOW THICK SECRETIONS. HME CHANGED, BVM AND BACK UP TRACH AT BEDSIDE. ALARMS ARE ON AND AUDIBLE, WILL CONTINUE TO MONITOR.
[2016-10-14] MEDS: INSULIN DETEMIR 300 UNIT/3 ML CARTRIDGE SQ SCH ×2 (09:21→21:00)
[2016-10-14] MEDS: FUROSEMIDE 40 MG/4 ML GT SCH (09:22)
[2016-10-14] MEDS: POTASSIUM CHLORIDE 20 MEQ TAB.PRT.SR XX SCH ×2 (09:22→17:47)
[2016-10-14] MEDS: VITAMINS A AND D OINT TP SCH (09:22)
[2016-10-14] MEDS: FAMOTIDINE 20 MG TABLET GT SCH ×2 (09:22→21:26)
[2016-10-14] MEDS: NYSTATIN CREAM 30 GM TUBE TP SCH ×2 (09:22→21:26)
[2016-10-14] MEDS: ACIDOPHILUS/BULGARICUS CHEW TAB GT SCH ×2 (09:22→21:26)
[2016-10-14] MEDS: LEVETIRACETAM 500 MG/5 ML LIQUID UDC GT SCH ×2 (09:22→21:26)
[2016-10-14] MEDS: TRIAMCINOLONE ACET 0.1% CREAM 15 GM TUBE TP SCH ×2 (09:22→21:26)
[2016-10-14] MEDS: HYDROGEN PEROXIDE 3% 118 ML BOTTLE TP SCH ×2 (09:22→21:26)
[2016-10-14] MEDS: PHENOBARBITAL GT SCH ×2 (09:22→21:26)
[2016-10-14] MEDS: COD LIVER OIL/ZINC OXIDE OINT 113 GM TUBE TOP SCH ×2 (09:22→21:26)
--- NOTE | 2016-10-14 20:15 | NUR ---
Pt received on Continuous mechanical ventilation via trach. Pt is in semi diaz position and has limited response to verbal stimuli. Pt is on [place] HT-50 vent with settings of A/C-12, VT-450, PEEP +5, FIO2-35%. Trach is a Shiley 6 DCT. Trach is patent and secure. No irritation or redness noted around stoma or trach tie. Tolerating vent settings well. SpO2-99%. HME and in-line sution catheter changed. PPE used. Vent alarm parameters checked, on and audible. Vent plugged into red emergency outlet. Bag/valve/mask and back up trach bedside. Will continue to monitor.
[2016-10-14 20:45] VITALS: BP 125/56
[2016-10-14] MEDS: CALCIUM CARBONATE 500 MG TAB.CHEW GT SCH (21:26)
[2016-10-14] MEDS: FISH OIL GT SCH (21:26)
[2016-10-14] MEDS: [UNRECOGNIZED DRUG - OTHER] GT SCH (21:26)
[2016-10-15] MEDS: BACLOFEN 10 MG TABLET GT SCH ×4 (00:19→17:39)
[2016-10-15] MEDS: INSULIN REGULAR, HUMAN 300 UNIT/3 ML VIAL SQ PRN ×3 (00:19→17:47)
[2016-10-15] MEDS: BLOOD SUGAR DIAGNOSTIC 1 EACH STRIP VI SCH ×4 (00:19→17:47)
[2016-10-15] MEDS: DIABETICSOURCE AC 1000ML LIQUID GT PRN (04:47)
[2016-10-15] MEDS: NUTRISOURCE FIBER 4 GM PACKET GT SCH ×3 (05:53→21:23)
[2016-10-15 08:00] VITALS: BP 113/70
--- NOTE | 2016-10-15 08:23 | NUR ---
Pt received laying in bed, semi-Huff's with eyes open.. Pt unable to communicate, withdraws to physical stimuli.. Pt trach: Aleisha [address]/secure with tie, no visible sign of irritation/breakdown noted around/under trach tie.. Trach site clean/dry at this time, stoma appears normal, no discoloration noted.. Continuous mechanical ventilation, vent: HT-50 w/settings: A/C 12, Vt 450, PEEP +5, FiO2 35%, tolerating well, no changes made to vent settings at this time.. Vent alarms checked, alarms are on/audible and functioning properly at this time.. BVM/back up trach at bedside.. No s/s of respiratory distress/S.O.B noted.. Will continue to monitor..
[2016-10-15] MEDS: ACIDOPHILUS/BULGARICUS CHEW TAB GT SCH ×2 (08:44→21:23)
[2016-10-15] MEDS: LEVETIRACETAM 500 MG/5 ML LIQUID UDC GT SCH ×2 (08:44→21:23)
[2016-10-15] MEDS: PHENOBARBITAL GT SCH ×2 (08:45→21:23)
[2016-10-15] MEDS: FUROSEMIDE 40 MG/4 ML GT SCH (08:45)
[2016-10-15] MEDS: FAMOTIDINE 20 MG TABLET GT SCH ×2 (08:46→21:23)
[2016-10-15] MEDS: HYDROGEN PEROXIDE 3% 118 ML BOTTLE TP SCH ×2 (08:46→21:23)
[2016-10-15] MEDS: COD LIVER OIL/ZINC OXIDE OINT 113 GM TUBE TOP SCH ×2 (08:46→21:23)
[2016-10-15] MEDS: TRIAMCINOLONE ACET 0.1% CREAM 15 GM TUBE TP SCH ×2 (08:46→21:23)
[2016-10-15] MEDS: VITAMINS A AND D OINT TP SCH (08:47)
[2016-10-15] MEDS: NYSTATIN CREAM 30 GM TUBE TP SCH ×2 (08:47→21:23)
[2016-10-15] MEDS: POTASSIUM CHLORIDE 20 MEQ TAB.PRT.SR XX SCH ×2 (08:47→17:39)
[2016-10-15] MEDS: INSULIN DETEMIR 300 UNIT/3 ML CARTRIDGE SQ SCH ×2 (08:50→21:38)
[2016-10-15] MEDS: FISH OIL GT SCH (21:23)
[2016-10-15] MEDS: [UNRECOGNIZED DRUG - OTHER] GT SCH (21:23)
[2016-10-15] MEDS: CALCIUM CARBONATE 500 MG TAB.CHEW GT SCH (21:23)
[2016-10-15 23:15] VITALS: BP 105/59
[2016-10-16] MEDS: BACLOFEN 10 MG TABLET GT SCH ×5 (00:10→23:07)
[2016-10-16] MEDS: BLOOD SUGAR DIAGNOSTIC 1 EACH STRIP VI SCH ×5 (00:20→23:07)
[2016-10-16] MEDS: INSULIN REGULAR, HUMAN 300 UNIT/3 ML VIAL SQ PRN ×3 (00:21→23:09)
[2016-10-16] MEDS: NUTRISOURCE FIBER 4 GM PACKET GT SCH ×3 (05:03→21:12)
[2016-10-16 08:00] VITALS: BP 111/54
[2016-10-16] MEDS: ACIDOPHILUS/BULGARICUS CHEW TAB GT SCH ×2 (08:31→21:05)
[2016-10-16] MEDS: FUROSEMIDE 40 MG/4 ML GT SCH (08:31)
[2016-10-16] MEDS: PHENOBARBITAL GT SCH ×2 (08:31→21:06)
[2016-10-16] MEDS: LEVETIRACETAM 500 MG/5 ML LIQUID UDC GT SCH ×2 (08:31→21:05)
[2016-10-16] MEDS: FAMOTIDINE 20 MG TABLET GT SCH ×2 (08:31→21:06)
[2016-10-16] MEDS: INSULIN DETEMIR 300 UNIT/3 ML CARTRIDGE SQ SCH ×2 (08:32→21:10)
[2016-10-16] MEDS: TRIAMCINOLONE ACET 0.1% CREAM 15 GM TUBE TP SCH ×2 (08:33→21:12)
[2016-10-16] MEDS: NYSTATIN CREAM 30 GM TUBE TP SCH ×2 (08:33→21:12)
[2016-10-16] MEDS: POTASSIUM CHLORIDE 20 MEQ TAB.PRT.SR XX SCH ×2 (08:33→17:33)
[2016-10-16] MEDS: HYDROGEN PEROXIDE 3% 118 ML BOTTLE TP SCH ×2 (08:33→21:12)
[2016-10-16] MEDS: COD LIVER OIL/ZINC OXIDE OINT 113 GM TUBE TOP SCH ×2 (08:33→21:11)
[2016-10-16] MEDS: VITAMINS A AND D OINT TP SCH (08:33)
--- NOTE | 2016-10-16 20:30 | NUR ---
Pt received on Continuous mechanical ventilation via trach. Pt is in semi diaz position and has limited response to verbal stimuli. Pt is on [place] HT-50 vent with settings of A/C-12, VT-450, PEEP +5, FIO2-35%. Trach is a Shiley 6 DCT. Trach is patent and secure. No irritation or redness noted around stoma or trach tie. Tolerating vent settings well. SpO2-99%. HME changed. PPE used. Vent alarm parameters checked, on and audible. Vent plugged into red emergency outlet. Bag/valve/mask and back up trach bedside. Will continue to monitor.
[2016-10-16] MEDS: [UNRECOGNIZED DRUG - OTHER] GT SCH (21:06)
[2016-10-16] MEDS: FISH OIL GT SCH (21:06)
[2016-10-16] MEDS: CALCIUM CARBONATE 500 MG TAB.CHEW GT SCH (21:07)
--- NOTE | 2016-10-16 21:47 | NUR ---
seen by loan gonzalez, no new orders.
[2016-10-16 23:47] VITALS: BP 108/63
[2016-10-17] MEDS: NUTRISOURCE FIBER 4 GM PACKET GT SCH ×3 (05:04→21:15)
[2016-10-17] MEDS: BLOOD SUGAR DIAGNOSTIC 1 EACH STRIP VI SCH ×3 (05:04→17:20)
[2016-10-17] MEDS: BACLOFEN 10 MG TABLET GT SCH ×3 (05:04→17:01)
[2016-10-17] MEDS: INSULIN REGULAR, HUMAN 300 UNIT/3 ML VIAL SQ PRN ×3 (05:05→17:26)
[2016-10-17] MEDS: DIABETICSOURCE AC 1000ML LIQUID GT PRN (06:12)
--- NOTE | 2016-10-17 08:41 | NUR ---
PATIENT RECEIVED ON THE HT-50 VENTILATOR. PATIENT IS ON THE FOLLOWING SETTINGS THAT ARE CHARTED ON THE VENT NOTES. PRN SUCTIONING PERFORMED. SUCTIONED SMALL AMOUNTS OF THICK WHITE AND YELLOW SECRETIONS. TRACH IS PROPERLY SECURED WITH TRACH TIES. AIR WAY IS PATENT. BACK UP TRACH AND AMBU BAG AT BEDSIDE. VENT ALARMS ARE ON AND AUDIBLE. VENT IS PLUGGED INTO RED OUTLET. HME CHANGED. TOLERATING CURRENT VENT SETTINGS. NO SOB NOTED AT THIS TIME. WILL CONTINUE TO MONITOR PATIENT THROUGHOUT THE REST OF SHIFT.
--- NOTE | 2016-10-17 08:57 | NUR ---
SEEN BY DENISE FULLER.
[2016-10-17] MEDS: FAMOTIDINE 20 MG TABLET GT SCH ×2 (09:40→21:13)
[2016-10-17] MEDS: ACIDOPHILUS/BULGARICUS CHEW TAB GT SCH ×2 (09:40→21:10)
[2016-10-17] MEDS: COD LIVER OIL/ZINC OXIDE OINT 113 GM TUBE TOP SCH ×2 (09:40→21:14)
[2016-10-17] MEDS: FUROSEMIDE 40 MG/4 ML GT SCH (09:40)
[2016-10-17] MEDS: LEVETIRACETAM 500 MG/5 ML LIQUID UDC GT SCH ×2 (09:40→21:10)
[2016-10-17] MEDS: HYDROGEN PEROXIDE 3% 118 ML BOTTLE TP SCH ×2 (09:41→21:14)
[2016-10-17] MEDS: NYSTATIN CREAM 30 GM TUBE TP SCH (09:41)
[2016-10-17] MEDS: POTASSIUM CHLORIDE 20 MEQ TAB.PRT.SR XX SCH ×2 (09:41→17:01)
[2016-10-17] MEDS: TRIAMCINOLONE ACET 0.1% CREAM 15 GM TUBE TP SCH ×2 (09:41→21:14)
[2016-10-17] MEDS: VITAMINS A AND D OINT TP SCH (09:41)
[2016-10-17 09:44] VITALS: BP 109/66
[2016-10-17] MEDS: INSULIN DETEMIR 300 UNIT/3 ML CARTRIDGE SQ SCH ×2 (09:45→21:14)
[2016-10-17] MEDS: PHENOBARBITAL GT SCH ×2 (09:51→21:13)
[2016-10-17] MEDS: FISH OIL GT SCH (21:12)
[2016-10-17] MEDS: [UNRECOGNIZED DRUG - OTHER] GT SCH (21:12)
[2016-10-17] MEDS: CALCIUM CARBONATE 500 MG TAB.CHEW GT SCH (21:13)
[2016-10-17 23:19] VITALS: BP 105/53
[2016-10-18] MEDS: BACLOFEN 10 MG TABLET GT SCH ×4 (00:26→17:08)
[2016-10-18] MEDS: BLOOD SUGAR DIAGNOSTIC 1 EACH STRIP VI SCH ×4 (00:26→17:31)
[2016-10-18] MEDS: INSULIN REGULAR, HUMAN 300 UNIT/3 ML VIAL SQ PRN ×3 (00:27→17:32)
--- NOTE | 2016-10-18 02:15 | NUR ---
PT ON CONT HT 50 VENT WITH SHILEY # [address] AND SECURED, WITH SAME CURRENT VENT SETTINGS, PT DOES ASSIST AT TIMES, WITH GOOD COUGH EFFORT, CHANGE HME, CHECK CUFF, SUCTIONED LIGHT PALE YELL YELL TINGE SECRETIONS, ALL ALARMS OK, AMBU BAG AT BEDSIDE, NO VENT CHANGES MADE AT THIS TIME, PT STABLE, NO RESP. DISTRESS NOTED. Andi CHAKRABORTYP Addendum: 10/18/16 at 0216 by ETHEL FERGUSON RT Amended: Links added.
[2016-10-18] MEDS: NUTRISOURCE FIBER 4 GM PACKET GT SCH ×3 (05:16→21:05)
[2016-10-18] MEDS: DIABETICSOURCE AC 1000ML LIQUID GT PRN (06:44)
[2016-10-18 08:02] VITALS: BP 109/66
[2016-10-18] MEDS: TRIAMCINOLONE ACET 0.1% CREAM 15 GM TUBE TP SCH ×2 (09:00→21:05)
[2016-10-18] MEDS: COD LIVER OIL/ZINC OXIDE OINT 113 GM TUBE TOP SCH ×2 (09:00→21:05)
[2016-10-18] MEDS: VITAMINS A AND D OINT TP SCH (09:00)
[2016-10-18] MEDS: HYDROGEN PEROXIDE 3% 118 ML BOTTLE TP SCH ×2 (09:00→21:05)
[2016-10-18] MEDS: INSULIN DETEMIR 300 UNIT/3 ML CARTRIDGE SQ SCH ×2 (09:01→21:05)
[2016-10-18] MEDS: ACIDOPHILUS/BULGARICUS CHEW TAB GT SCH ×2 (09:04→21:03)
[2016-10-18] MEDS: FUROSEMIDE 40 MG/4 ML GT SCH (09:04)
[2016-10-18] MEDS: PHENOBARBITAL GT SCH ×2 (09:04→21:04)
[2016-10-18] MEDS: LEVETIRACETAM 500 MG/5 ML LIQUID UDC GT SCH ×2 (09:04→21:03)
[2016-10-18] MEDS: FAMOTIDINE 20 MG TABLET GT SCH ×2 (09:04→21:04)
[2016-10-18] MEDS: POTASSIUM CHLORIDE 20 MEQ TAB.PRT.SR XX SCH ×2 (09:05→17:08)
--- NOTE | 2016-10-18 12:00 | NUR ---
SEEN BY HARSH FULLER.
--- NOTE | 2016-10-18 20:29 | NUR ---
Pt received on HT-50 ventilator with current settings of AC 12, VT 450, Peep +5, FiO2 35%. Pt has a Shiley 6 DCT trach which is secured with foam ties and is patent. No signs of respiratory distress noted at this time, pt tolerating vent settings well. Changed HME. Suctioned pt with moderate amount of pale-yellowish secretions. Vent alarms functioning and audible. Ambu-bag and back-up trach is at bedside. Will continue to monitor pt throughout shift.
[2016-10-18] MEDS: [UNRECOGNIZED DRUG - OTHER] GT SCH (21:03)
[2016-10-18] MEDS: FISH OIL GT SCH (21:03)
[2016-10-18] MEDS: CALCIUM CARBONATE 500 MG TAB.CHEW GT SCH (21:04)
[2016-10-18 21:42] VITALS: BP 110/62
[2016-10-19] MEDS: BACLOFEN 10 MG TABLET GT SCH ×4 (00:11→17:05)
[2016-10-19] MEDS: BLOOD SUGAR DIAGNOSTIC 1 EACH STRIP VI SCH ×4 (00:11→17:11)
[2016-10-19] MEDS: INSULIN REGULAR, HUMAN 300 UNIT/3 ML VIAL SQ PRN ×3 (00:13→12:39)
[2016-10-19] MEDS: NUTRISOURCE FIBER 4 GM PACKET GT SCH ×3 (05:39→21:26)
[2016-10-19] MEDS: DIABETICSOURCE AC 1000ML LIQUID GT PRN (06:27)
[2016-10-19 08:03] VITALS: BP 99/59
[2016-10-19] MEDS: INSULIN DETEMIR 300 UNIT/3 ML CARTRIDGE SQ SCH ×2 (08:40→21:26)
[2016-10-19] MEDS: ACIDOPHILUS/BULGARICUS CHEW TAB GT SCH ×2 (08:41→21:23)
[2016-10-19] MEDS: LEVETIRACETAM 500 MG/5 ML LIQUID UDC GT SCH ×2 (08:41→21:24)
[2016-10-19] MEDS: FUROSEMIDE 40 MG/4 ML GT SCH (08:42)
[2016-10-19] MEDS: PHENOBARBITAL GT SCH ×2 (08:43→21:24)
[2016-10-19] MEDS: FAMOTIDINE 20 MG TABLET GT SCH ×2 (08:43→21:24)
[2016-10-19] MEDS: POTASSIUM CHLORIDE 20 MEQ TAB.PRT.SR XX SCH ×2 (08:44→17:05)
[2016-10-19] MEDS: VITAMINS A AND D OINT TP SCH (08:44)
[2016-10-19] MEDS: COD LIVER OIL/ZINC OXIDE OINT 113 GM TUBE TOP SCH ×2 (08:44→21:26)
[2016-10-19] MEDS: HYDROGEN PEROXIDE 3% 118 ML BOTTLE TP SCH ×2 (08:44→21:26)
[2016-10-19] MEDS: TRIAMCINOLONE ACET 0.1% CREAM 15 GM TUBE TP SCH ×2 (08:44→21:26)
--- NOTE | 2016-10-19 20:34 | NUR ---
Received pt on HT-50 vent with the following settings of AC-12, Vt-450, PEEP+5, FIO2-35%, trached with Shiley#6 DCT trach, which is in the place and secure. No respiratory distress noted. Airway care done, pt responded to physical stimuli. HME changed. Resus. bag and back up trach at bedside. Vent and alarms on and audible.
[2016-10-19] MEDS: FISH OIL GT SCH (21:24)
[2016-10-19] MEDS: [UNRECOGNIZED DRUG - OTHER] GT SCH (21:24)
[2016-10-19] MEDS: CALCIUM CARBONATE 500 MG TAB.CHEW GT SCH (21:25)
[2016-10-19 23:51] VITALS: BP 106/59
[2016-10-20] MEDS: BACLOFEN 10 MG TABLET GT SCH ×5 (00:35→23:01)
[2016-10-20] MEDS: INSULIN REGULAR, HUMAN 300 UNIT/3 ML VIAL SQ PRN ×3 (00:36→17:36)
[2016-10-20] MEDS: BLOOD SUGAR DIAGNOSTIC 1 EACH STRIP VI SCH ×5 (00:36→23:11)
[2016-10-20] MEDS: NUTRISOURCE FIBER 4 GM PACKET GT SCH ×3 (05:45→22:52)
[2016-10-20 08:04] VITALS: BP 102/57
--- NOTE | 2016-10-20 08:21 | NUR ---
PT RECEIVED ON HT-50 VENT, SETTINGS ARE AC 12, Vt 450, +5, 35% FIO2. PT TOLERATING CURRENT SETTINGS WELL, NO S\S OF RESPIRATORY DISTRESS NOTED. SHILEY 6 TRACH IS PATENT AND SECURED WITH TIES. SUCTIONED SMALL AMOUNTS OF YELLOW THICK SECRETIONS. HME CHANGED, BVM AND BACK UP TRACH AT BEDSIDE. ALARMS ARE ON AND AUDIBLE, WILL CONTINUE TO MONITOR.
[2016-10-20] MEDS: PHENOBARBITAL GT SCH ×2 (08:52→21:00)
[2016-10-20] MEDS: FUROSEMIDE 40 MG/4 ML GT SCH (08:52)
[2016-10-20] MEDS: LEVETIRACETAM 500 MG/5 ML LIQUID UDC GT SCH ×2 (08:52→21:00)
[2016-10-20] MEDS: ACIDOPHILUS/BULGARICUS CHEW TAB GT SCH ×2 (08:52→21:00)
[2016-10-20] MEDS: COD LIVER OIL/ZINC OXIDE OINT 113 GM TUBE TOP SCH ×2 (08:53→21:00)
[2016-10-20] MEDS: FAMOTIDINE 20 MG TABLET GT SCH ×2 (08:53→21:00)
[2016-10-20] MEDS: TRIAMCINOLONE ACET 0.1% CREAM 15 GM TUBE TP SCH ×2 (08:54→21:00)
[2016-10-20] MEDS: HYDROGEN PEROXIDE 3% 118 ML BOTTLE TP SCH ×2 (08:54→21:00)
[2016-10-20] MEDS: VITAMINS A AND D OINT TP SCH (08:54)
[2016-10-20] MEDS: POTASSIUM CHLORIDE 20 MEQ TAB.PRT.SR XX SCH ×2 (08:54→17:02)
[2016-10-20] MEDS: DIABETICSOURCE AC 1000ML LIQUID GT PRN (08:55)
[2016-10-20] MEDS: INSULIN DETEMIR 300 UNIT/3 ML CARTRIDGE SQ SCH ×2 (08:55→21:00)
[2016-10-20] MEDS: [UNRECOGNIZED DRUG - OTHER] GT SCH (21:00)
[2016-10-20] MEDS: FISH OIL GT SCH (21:00)
[2016-10-20] MEDS: CALCIUM CARBONATE 500 MG TAB.CHEW GT SCH (21:00)
[2016-10-20 22:20] VITALS: BP 116/61
--- NOTE | 2016-10-21 01:56 | NUR ---
PT ON CONT HT 50 VENT WITH SHILEY # [address] AND SECURED, WITH SAME CURRENT VENT SETTINGS, PT DOES ASSIST AT TIMES, WITH GOOD COUGH EFFORT, CHECK CUFF, CHANGE HME, SUCTIONED LIGHT PALE YELL TINGE SECRETIONS, WITH NO VENT CHANGES MADE AT THIS TIME, ALL ALARMS OK, AMBU BAG AT BEDSIDE, PT STABLE.Andi CHAKRABORTYP Addendum: 10/21/16 at 0158 by ETHEL FERGUSON RT Amended: Links added.
[2016-10-21] MEDS: BLOOD SUGAR DIAGNOSTIC 1 EACH STRIP VI SCH ×3 (05:53→17:34)
[2016-10-21] MEDS: NUTRISOURCE FIBER 4 GM PACKET GT SCH ×3 (05:53→21:49)
[2016-10-21] MEDS: BACLOFEN 10 MG TABLET GT SCH ×3 (05:53→17:29)
[2016-10-21] MEDS: INSULIN REGULAR, HUMAN 300 UNIT/3 ML VIAL SQ PRN (05:55)
[2016-10-21 08:00] VITALS: BP 116/60
--- NOTE | 2016-10-21 08:30 | NUR ---
Pt received on Continuous mechanical ventilation via trach. Pt is in semi diaz position and has limited response to verbal stimuli. Pt is on [place] HT-50 vent with settings of A/C-12, VT-450, PEEP +5, FIO2-35%. Trach is a Shiley 6 DCT. Trach is patent and secure. No irritation or redness noted around stoma or trach tie. Tolerating vent settings well. SpO2-99%. HME and Vent circuit changed. PPE used. Vent alarm parameters checked, on and audible. Vent plugged into red emergency outlet. Bag/valve/mask and back up trach bedside. Will continue to monitor.
[2016-10-21] MEDS: ACIDOPHILUS/BULGARICUS CHEW TAB GT SCH ×2 (09:01→21:48)
[2016-10-21] MEDS: LEVETIRACETAM 500 MG/5 ML LIQUID UDC GT SCH ×2 (09:02→21:48)
[2016-10-21] MEDS: PHENOBARBITAL GT SCH ×2 (09:04→21:49)
[2016-10-21] MEDS: FUROSEMIDE 40 MG/4 ML GT SCH (09:04)
[2016-10-21] MEDS: FAMOTIDINE 20 MG TABLET GT SCH ×2 (09:04→21:49)
[2016-10-21] MEDS: COD LIVER OIL/ZINC OXIDE OINT 113 GM TUBE TOP SCH ×2 (09:05→21:49)
[2016-10-21] MEDS: TRIAMCINOLONE ACET 0.1% CREAM 15 GM TUBE TP SCH ×2 (09:05→21:49)
[2016-10-21] MEDS: HYDROGEN PEROXIDE 3% 118 ML BOTTLE TP SCH ×2 (09:05→21:49)
[2016-10-21] MEDS: POTASSIUM CHLORIDE 20 MEQ TAB.PRT.SR XX SCH ×2 (09:05→17:29)
[2016-10-21] MEDS: VITAMINS A AND D OINT TP SCH (09:05)
[2016-10-21] MEDS: INSULIN DETEMIR 300 UNIT/3 ML CARTRIDGE SQ SCH ×2 (09:08→21:52)
[2016-10-21 11:50] VITALS: BP 119/62
[2016-10-21] MEDS: DIABETICSOURCE AC 1000ML LIQUID GT PRN (12:56)
--- NOTE | 2016-10-21 19:29 | NUR ---
Patient received on HT-50 settings AC 12, VT 450, PEEP+5, FIO2-35%. Shiley 6 DCT is patent and secure. Backup Shiley 6 DCT & resusc. bag both at bedside. No resp. distress noted. Pt to be monitored throughout the shift and PRN SX. HT-50 alarm parameters have been checekd and remain audible.
[2016-10-21] MEDS: FISH OIL GT SCH (21:48)
[2016-10-21] MEDS: [UNRECOGNIZED DRUG - OTHER] GT SCH (21:48)
[2016-10-21] MEDS: CALCIUM CARBONATE 500 MG TAB.CHEW GT SCH (21:49)
[2016-10-21 23:46] VITALS: BP 108/58
[2016-10-22] MEDS: BACLOFEN 10 MG TABLET GT SCH ×4 (00:26→17:27)
[2016-10-22] MEDS: BLOOD SUGAR DIAGNOSTIC 1 EACH STRIP VI SCH ×4 (00:26→17:23)
[2016-10-22] MEDS: INSULIN REGULAR, HUMAN 300 UNIT/3 ML VIAL SQ PRN ×3 (00:27→17:23)
[2016-10-22] MEDS: NUTRISOURCE FIBER 4 GM PACKET GT SCH ×3 (05:44→21:15)
[2016-10-22 08:08] VITALS: BP 98/50
[2016-10-22] MEDS: FUROSEMIDE 40 MG/4 ML GT SCH (09:58)
[2016-10-22] MEDS: PHENOBARBITAL GT SCH ×2 (09:58→20:51)
[2016-10-22] MEDS: LEVETIRACETAM 500 MG/5 ML LIQUID UDC GT SCH ×2 (09:58→20:49)
[2016-10-22] MEDS: ACIDOPHILUS/BULGARICUS CHEW TAB GT SCH ×2 (09:58→20:49)
[2016-10-22] MEDS: COD LIVER OIL/ZINC OXIDE OINT 113 GM TUBE TOP SCH ×2 (09:58→20:51)
[2016-10-22] MEDS: FAMOTIDINE 20 MG TABLET GT SCH ×2 (09:58→20:51)
[2016-10-22] MEDS: INSULIN DETEMIR 300 UNIT/3 ML CARTRIDGE SQ SCH ×2 (09:58→20:54)
[2016-10-22] MEDS: HYDROGEN PEROXIDE 3% 118 ML BOTTLE TP SCH ×2 (09:58→20:51)
[2016-10-22] MEDS: VITAMINS A AND D OINT TP SCH (09:59)
[2016-10-22] MEDS: POTASSIUM CHLORIDE 20 MEQ TAB.PRT.SR XX SCH ×2 (09:59→17:27)
[2016-10-22] MEDS: TRIAMCINOLONE ACET 0.1% CREAM 15 GM TUBE TP SCH ×2 (09:59→20:51)
--- NOTE | 2016-10-22 11:35 | NUR ---
RECEIVED ON CONTINUOUS VENT AC 12 VT 450 PEEP 5 FIO2 35%. TRACH IN PLACE AND SECURED. BACK UP TRACH AND BAG VALVE MASK AT BEDSIDE. SUCTION SMALL AMOUNT THICK PALE YELLOW SECRETIONS. VENT CHECKED, ALARMS WORKING WELL AND AUDIBLE. NO DISTRESS NOTED AT THIS TIME. WILL CONTINUE TO MONITOR.
--- NOTE | 2016-10-22 17:10 | NUR ---
SEEN BY VALE PICKARD WITH NO NEW ORDER.
--- NOTE | 2016-10-22 20:15 | NUR ---
Pt received on Continuous mechanical ventilation via trach. Pt is in semi diaz position and has limited response to verbal stimuli. Pt is on [place] HT-50 vent with settings of A/C-12, VT-450, PEEP +5, FIO2-35%. Trach is a Shiley 6 DCT. Trach is patent and secure. No irritation or redness noted around stoma or trach tie. Tolerating vent settings well. SpO2-99%. HME changed. PPE used. Vent alarm parameters checked, on and audible. Vent plugged into red emergency outlet. Bag/valve/mask and back up trach bedside. Will continue to monitor.
[2016-10-22] MEDS: FISH OIL GT SCH (20:51)
[2016-10-22] MEDS: [UNRECOGNIZED DRUG - OTHER] GT SCH (20:51)
[2016-10-22] MEDS: CALCIUM CARBONATE 500 MG TAB.CHEW GT SCH (20:51)
[2016-10-22 21:45] VITALS: BP 74/54
[2016-10-23] MEDS: BACLOFEN 10 MG TABLET GT SCH ×4 (00:27→17:23)
[2016-10-23] MEDS: BLOOD SUGAR DIAGNOSTIC 1 EACH STRIP VI SCH ×4 (00:27→17:23)
[2016-10-23] MEDS: INSULIN REGULAR, HUMAN 300 UNIT/3 ML VIAL SQ PRN ×4 (00:28→17:27)
[2016-10-23] MEDS: NUTRISOURCE FIBER 4 GM PACKET GT SCH ×3 (05:15→21:06)
[2016-10-23] MEDS: LEVETIRACETAM 500 MG/5 ML LIQUID UDC GT SCH ×2 (08:48→20:54)
[2016-10-23] MEDS: ACIDOPHILUS/BULGARICUS CHEW TAB GT SCH ×2 (08:48→20:54)
[2016-10-23] MEDS: PHENOBARBITAL GT SCH ×2 (08:49→20:59)
[2016-10-23] MEDS: FUROSEMIDE 40 MG/4 ML GT SCH (08:49)
[2016-10-23] MEDS: FAMOTIDINE 20 MG TABLET GT SCH ×2 (08:50→21:01)
[2016-10-23] MEDS: HYDROGEN PEROXIDE 3% 118 ML BOTTLE TP SCH ×2 (08:54→21:08)
[2016-10-23] MEDS: INSULIN DETEMIR 300 UNIT/3 ML CARTRIDGE SQ SCH ×2 (08:54→21:02)
[2016-10-23] MEDS: COD LIVER OIL/ZINC OXIDE OINT 113 GM TUBE TOP SCH ×2 (08:54→21:08)
[2016-10-23] MEDS: TRIAMCINOLONE ACET 0.1% CREAM 15 GM TUBE TP SCH ×2 (08:55→21:08)
[2016-10-23] MEDS: POTASSIUM CHLORIDE 20 MEQ TAB.PRT.SR XX SCH ×2 (08:55→17:23)
[2016-10-23] MEDS: VITAMINS A AND D OINT TP SCH (08:55)
[2016-10-23 11:25] VITALS: BP 110/68
--- NOTE | 2016-10-23 17:45 | NUR ---
RECEIVED RESIDENT ON CURRENT VENT SETTINGS OF AC 12,VT 450, PEEP 5 AND FIO2 35%. NO DISTRESS WITH O2 SATURATION OF 99%. SUCTIONED FOR MODERATE AMOUNT OF THICK WHITISH SECRETIONS. CHANGED HUMIDIFIER FILTER.
--- NOTE | 2016-10-23 20:30 | NUR ---
Pt received in semi diaz position, has limited response to verbal stimuli, and is on Continuous mechanical ventilation via Trach. Pt is on [place] HT-50 vent with settings of A/C-12, VT-450, PEEP +5, FIO2-35%. Trach is a [employer] 6 DCT. Trach is patent and secure. No irritation or redness noted around stoma or trach tie. Tolerating vent settings well. SpO2-99%. HME changed. PPE used. Vent alarm parameters checked, on and audible. Vent plugged into red emergency outlet. Bag/valve/mask and back up trach bedside. Will continue to monitor.
[2016-10-23] MEDS: FISH OIL GT SCH (20:59)
[2016-10-23] MEDS: [UNRECOGNIZED DRUG - OTHER] GT SCH (20:59)
[2016-10-23] MEDS: CALCIUM CARBONATE 500 MG TAB.CHEW GT SCH (21:01)
[2016-10-23 23:01] VITALS: BP 120/62
[2016-10-24] MEDS: BACLOFEN 10 MG TABLET GT SCH ×4 (00:22→17:11)
[2016-10-24] MEDS: BLOOD SUGAR DIAGNOSTIC 1 EACH STRIP VI SCH ×4 (00:22→17:15)
[2016-10-24] MEDS: INSULIN REGULAR, HUMAN 300 UNIT/3 ML VIAL SQ PRN ×3 (00:22→17:15)
[2016-10-24] MEDS: NUTRISOURCE FIBER 4 GM PACKET GT SCH ×3 (05:02→21:02)
[2016-10-24] MEDS: INSULIN DETEMIR 300 UNIT/3 ML CARTRIDGE SQ SCH ×2 (08:11→21:03)
[2016-10-24] MEDS: FAMOTIDINE 20 MG TABLET GT SCH ×2 (08:19→21:00)
[2016-10-24] MEDS: LEVETIRACETAM 500 MG/5 ML LIQUID UDC GT SCH ×2 (08:19→21:00)
[2016-10-24] MEDS: PHENOBARBITAL GT SCH ×2 (08:19→21:00)
[2016-10-24] MEDS: ACIDOPHILUS/BULGARICUS CHEW TAB GT SCH ×2 (08:19→20:59)
[2016-10-24] MEDS: COD LIVER OIL/ZINC OXIDE OINT 113 GM TUBE TOP SCH ×2 (08:19→21:01)
[2016-10-24] MEDS: HYDROGEN PEROXIDE 3% 118 ML BOTTLE TP SCH ×2 (08:20→21:01)
[2016-10-24] MEDS: VITAMINS A AND D OINT TP SCH (08:20)
[2016-10-24] MEDS: TRIAMCINOLONE ACET 0.1% CREAM 15 GM TUBE TP SCH ×2 (08:20→21:02)
[2016-10-24] MEDS: POTASSIUM CHLORIDE 20 MEQ TAB.PRT.SR XX SCH ×2 (08:20→17:11)
--- NOTE | 2016-10-24 08:30 | NUR ---
PT ON HT-50 VENT WITH VENT SETTINGS: AC 12, VT 450, PEEP +5, FIO2 35%. VENT ALARM PARAMETERS CHECKED, ARE ON AND AUDIBLE. NO CHANGES MADE AT THIS TIME. SH. 6DCT TRACH IS PATENT AND SECURED WITH TRACH TIES. SUCTIONED MODERATE AMOUNT OF THICK, PALE/YELLOWISH SECRETIONS. HME CHANGED. AMBU BAG AND BACK UP TRACH ARE AT BEDSIDE. VENT PLUGGED INTO RED EMERGENCY OUTLET. NO RESPIRATORY DISTRESS OBSERVED. WILL CONTINUE TO MONITOR.
[2016-10-24] MEDS: FUROSEMIDE 40 MG/4 ML GT SCH (08:51)
[2016-10-24 09:24] VITALS: BP 93/63
[2016-10-24] MEDS: FISH OIL GT SCH (21:00)
[2016-10-24] MEDS: [UNRECOGNIZED DRUG - OTHER] GT SCH (21:00)
[2016-10-24] MEDS: CALCIUM CARBONATE 500 MG TAB.CHEW GT SCH (21:01)
[2016-10-24 23:13] VITALS: BP 103/57
[2016-10-25] MEDS: BLOOD SUGAR DIAGNOSTIC 1 EACH STRIP VI SCH ×5 (00:26→23:53)
[2016-10-25] MEDS: BACLOFEN 10 MG TABLET GT SCH ×5 (00:26→23:51)
[2016-10-25] MEDS: INSULIN REGULAR, HUMAN 300 UNIT/3 ML VIAL SQ PRN ×5 (00:27→23:54)
[2016-10-25] MEDS: NUTRISOURCE FIBER 4 GM PACKET GT SCH ×3 (05:51→21:14)
[2016-10-25] MEDS: LEVETIRACETAM 500 MG/5 ML LIQUID UDC GT SCH ×2 (09:27→21:13)
[2016-10-25] MEDS: ACIDOPHILUS/BULGARICUS CHEW TAB GT SCH ×2 (09:27→21:13)
[2016-10-25] MEDS: FUROSEMIDE 40 MG/4 ML GT SCH (09:27)
[2016-10-25] MEDS: PHENOBARBITAL GT SCH ×2 (09:28→21:14)
[2016-10-25] MEDS: COD LIVER OIL/ZINC OXIDE OINT 113 GM TUBE TOP SCH ×2 (09:29→21:14)
[2016-10-25] MEDS: FAMOTIDINE 20 MG TABLET GT SCH ×2 (09:29→21:14)
[2016-10-25] MEDS: HYDROGEN PEROXIDE 3% 118 ML BOTTLE TP SCH ×2 (09:29→21:14)
[2016-10-25] MEDS: VITAMINS A AND D OINT TP SCH (09:30)
[2016-10-25] MEDS: POTASSIUM CHLORIDE 20 MEQ TAB.PRT.SR XX SCH ×2 (09:30→17:13)
[2016-10-25] MEDS: TRIAMCINOLONE ACET 0.1% CREAM 15 GM TUBE TP SCH (09:30)
[2016-10-25] MEDS: INSULIN DETEMIR 300 UNIT/3 ML CARTRIDGE SQ SCH ×2 (09:32→21:31)
[2016-10-25 09:49] VITALS: BP 109/71
[2016-10-25] MEDS: DIABETICSOURCE AC 1000ML LIQUID GT PRN (12:41)
[2016-10-25] MEDS: [UNRECOGNIZED DRUG - OTHER] GT SCH (21:14)
[2016-10-25] MEDS: FISH OIL GT SCH (21:14)
[2016-10-25] MEDS: CALCIUM CARBONATE 500 MG TAB.CHEW GT SCH (21:14)
[2016-10-25 23:15] VITALS: BP 109/58
[2016-10-26] MEDS: BACLOFEN 10 MG TABLET GT SCH ×3 (05:14→17:12)
[2016-10-26] MEDS: BLOOD SUGAR DIAGNOSTIC 1 EACH STRIP VI SCH ×3 (05:14→17:17)
[2016-10-26] MEDS: NUTRISOURCE FIBER 4 GM PACKET GT SCH ×3 (05:14→21:11)
[2016-10-26] MEDS: INSULIN REGULAR, HUMAN 300 UNIT/3 ML VIAL SQ PRN (05:15)
--- NOTE | 2016-10-26 08:44 | NUR ---
Pt received laying semi-Huff's, with eyes open, unable to communicate, withdraws to physical stimuli - obtunded.. Pt trach: [employer] [address]/secure with tie, no visible sign of irritation/breakdown noted around/under trach tie.. Trach site clean/dry at this time, stoma appears normal, no discoloration noted.. Continuous mechanical ventilation, vent: HT-50 w/settings: A/C 12, Vt 450, PEEP +5, FiO2 35%, tolerating well, no changes made to vent settings at this time.. Vent alarms checked, alarms are on/audible and functioning properly at this time.. BVM/back up trach at bedside.. No s/s of respiratory distress/S.O.B noted.. Will continue to monitor..
[2016-10-26] MEDS: INSULIN DETEMIR 300 UNIT/3 ML CARTRIDGE SQ SCH ×2 (08:56→21:18)
[2016-10-26] MEDS: ACIDOPHILUS/BULGARICUS CHEW TAB GT SCH ×2 (08:57→21:09)
[2016-10-26] MEDS: PHENOBARBITAL GT SCH ×2 (08:58→21:10)
[2016-10-26] MEDS: FAMOTIDINE 20 MG TABLET GT SCH ×2 (08:58→21:10)
[2016-10-26] MEDS: LEVETIRACETAM 500 MG/5 ML LIQUID UDC GT SCH ×2 (08:58→21:09)
[2016-10-26] MEDS: COD LIVER OIL/ZINC OXIDE OINT 113 GM TUBE TOP SCH ×2 (08:59→21:11)
[2016-10-26] MEDS: VITAMINS A AND D OINT TP SCH (08:59)
[2016-10-26] MEDS: HYDROGEN PEROXIDE 3% 118 ML BOTTLE TP SCH ×2 (08:59→21:11)
[2016-10-26] MEDS: FUROSEMIDE 40 MG/4 ML GT SCH (08:59)
[2016-10-26] MEDS: POTASSIUM CHLORIDE 20 MEQ TAB.PRT.SR XX SCH ×2 (08:59→17:12)
[2016-10-26 10:53] VITALS: BP 94/58
[2016-10-26] MEDS: DIABETICSOURCE AC 1000ML LIQUID GT PRN (13:01)
--- NOTE | 2016-10-26 19:13 | NUR ---
Pt received on HT-50 settings AC 12, VT 450, PEEP+5, FIO2-35%. Shiley 6 DCT is patent and secure. Backup Shiley 6 DCT and BVM at bedside. No resp. distress noted. Pt to be monitored throughout the shift and PRN SX. HT-50 alarm parameters have been checekd and remain audible.
[2016-10-26] MEDS: FISH OIL GT SCH (21:10)
[2016-10-26] MEDS: [UNRECOGNIZED DRUG - OTHER] GT SCH (21:10)
[2016-10-26] MEDS: CALCIUM CARBONATE 500 MG TAB.CHEW GT SCH (21:10)
[2016-10-26 23:51] VITALS: BP 111/60
[2016-10-27] MEDS: BLOOD SUGAR DIAGNOSTIC 1 EACH STRIP VI SCH ×4 (00:19→17:08)
[2016-10-27] MEDS: BACLOFEN 10 MG TABLET GT SCH ×4 (00:19→17:08)
[2016-10-27] MEDS: INSULIN REGULAR, HUMAN 300 UNIT/3 ML VIAL SQ PRN ×4 (00:20→17:09)
[2016-10-27] MEDS: NUTRISOURCE FIBER 4 GM PACKET GT SCH ×3 (05:08→21:15)
--- NOTE | 2016-10-27 07:36 | NUR ---
Pt received in bed, laying semi-Huff's, with eyes open, unable to communicate, obtunded - withdraws to physical stimuli.. Pt trach: Sure[place]aley [address]/secure with tie, no visible sign of irritation/breakdown noted around/under trach tie.. Trach site clean/dry at this time, stoma appears normal, no discoloration noted.. Continuous mechanical ventilation, vent: HT-50 w/settings: A/C 12, Vt 450, PEEP +5, FiO2 35%, tolerating well, no changes made to vent settings at this time.. Vent alarms checked, alarms are on/audible and functioning properly at this time.. BVM/back up trach at bedside.. No s/s of respiratory distress/S.O.B noted.. Will continue to monitor..
[2016-10-27 08:05] VITALS: BP 98/57
[2016-10-27] MEDS: ACIDOPHILUS/BULGARICUS CHEW TAB GT SCH ×2 (09:52→21:14)
[2016-10-27] MEDS: FUROSEMIDE 40 MG/4 ML GT SCH (09:52)
[2016-10-27] MEDS: INSULIN DETEMIR 300 UNIT/3 ML CARTRIDGE SQ SCH ×2 (09:52→21:23)
[2016-10-27] MEDS: LEVETIRACETAM 500 MG/5 ML LIQUID UDC GT SCH ×2 (09:52→21:14)
[2016-10-27] MEDS: PHENOBARBITAL GT SCH ×2 (09:52→21:15)
[2016-10-27] MEDS: VITAMINS A AND D OINT TP SCH (09:53)
[2016-10-27] MEDS: COD LIVER OIL/ZINC OXIDE OINT 113 GM TUBE TOP SCH ×2 (09:53→21:15)
[2016-10-27] MEDS: FAMOTIDINE 20 MG TABLET GT SCH ×2 (09:53→21:15)
[2016-10-27] MEDS: POTASSIUM CHLORIDE 20 MEQ TAB.PRT.SR XX SCH ×2 (09:53→17:08)
[2016-10-27] MEDS: HYDROGEN PEROXIDE 3% 118 ML BOTTLE TP SCH ×2 (09:53→21:15)
[2016-10-27] MEDS: [UNRECOGNIZED DRUG - OTHER] GT SCH (21:15)
[2016-10-27] MEDS: CALCIUM CARBONATE 500 MG TAB.CHEW GT SCH (21:15)
[2016-10-27] MEDS: FISH OIL GT SCH (21:15)
[2016-10-27 22:15] VITALS: BP 114/56
[2016-10-28] MEDS: BLOOD SUGAR DIAGNOSTIC 1 EACH STRIP VI SCH ×4 (00:12→17:11)
[2016-10-28] MEDS: BACLOFEN 10 MG TABLET GT SCH ×4 (00:12→17:11)
[2016-10-28] MEDS: INSULIN REGULAR, HUMAN 300 UNIT/3 ML VIAL SQ PRN ×4 (00:14→17:13)
[2016-10-28] MEDS: NUTRISOURCE FIBER 4 GM PACKET GT SCH ×3 (05:13→21:09)
--- NOTE | 2016-10-28 09:20 | NUR ---
RECEIVED PT ON HT-50 VENT WITH THE FOLLOWING SETTINGS THAT ARE CHARTED ON THE MECHANICAL VENT NOTES. TRACH IS SECURED AND PATENT. SUCTIONED A SMALL AMOUNT OF THICK WHITE/YELLOWISH SECRETIONS. SPARE TRACH AND BMV AT BEDSIDE. VENT ALARMS ARE ON AND LOUD. VENT IS PLUGGED IN RED EMERGENCY OUTLET. CHANGED HME. PATIENT IS TOLERATING CURRENT VENTILATOR SETTINGS. NO SIGNS OR SYMPTOMS OF RESPIRATORY DISTRESS NOTED AT THIS TIME. WILL CONTINUE TO MONITOR.
[2016-10-28] MEDS: LEVETIRACETAM 500 MG/5 ML LIQUID UDC GT SCH ×2 (09:37→20:33)
[2016-10-28] MEDS: ACIDOPHILUS/BULGARICUS CHEW TAB GT SCH ×2 (09:37→20:33)
[2016-10-28] MEDS: PHENOBARBITAL GT SCH ×2 (09:38→20:33)
[2016-10-28] MEDS: FUROSEMIDE 40 MG/4 ML GT SCH (09:38)
[2016-10-28] MEDS: VITAMINS A AND D OINT TP SCH (09:39)
[2016-10-28] MEDS: COD LIVER OIL/ZINC OXIDE OINT 113 GM TUBE TOP SCH ×2 (09:39→20:36)
[2016-10-28] MEDS: FAMOTIDINE 20 MG TABLET GT SCH ×2 (09:39→20:34)
[2016-10-28] MEDS: HYDROGEN PEROXIDE 3% 118 ML BOTTLE TP SCH ×2 (09:39→20:36)
[2016-10-28] MEDS: POTASSIUM CHLORIDE 20 MEQ TAB.PRT.SR XX SCH ×2 (09:39→17:11)
[2016-10-28] MEDS: INSULIN DETEMIR 300 UNIT/3 ML CARTRIDGE SQ SCH ×2 (09:43→20:37)
[2016-10-28 10:48] VITALS: BP 103/56
[2016-10-28] MEDS: [UNRECOGNIZED DRUG - OTHER] GT SCH (20:33)
[2016-10-28] MEDS: FISH OIL GT SCH (20:33)
[2016-10-28] MEDS: CALCIUM CARBONATE 500 MG TAB.CHEW GT SCH (20:35)
[2016-10-29] MEDS: INSULIN REGULAR, HUMAN 300 UNIT/3 ML VIAL SQ PRN ×5 (00:36→23:22)
[2016-10-29] MEDS: BACLOFEN 10 MG TABLET GT SCH ×5 (00:36→23:20)
[2016-10-29] MEDS: BLOOD SUGAR DIAGNOSTIC 1 EACH STRIP VI SCH ×5 (00:36→23:20)
[2016-10-29] MEDS: NUTRISOURCE FIBER 4 GM PACKET GT SCH ×3 (05:15→21:10)
[2016-10-29 08:00] VITALS: BP_SYST 117; BP_SYST 99; BP_DIAS 61; BP_DIAS 64
--- NOTE | 2016-10-29 08:44 | NUR ---
Pt received laying in bed, semi-Huff's, with eyes open, unable to communicate, withdraws to physical stimuli - obtunded.. Pt trach: Surekhaley [address] / secure with tie, no visible sign of irritation / breakdown noted around / under trach tie.. Trach site clean / dry at this time, stoma appears normal, no discoloration noted.. Continuous mechanical ventilation, vent: HT-50 w/settings: A/C 12, Vt 450, PEEP +5, FiO2 35%, tolerating well, no changes made to vent settings at this time.. Vent alarms checked, alarms are on / audible and functioning properly at this time.. BVM/back up trach at bedside.. No s/s of respiratory distress / S.O.B noted.. Will continue to monitor..
[2016-10-29] MEDS: ACIDOPHILUS/BULGARICUS CHEW TAB GT SCH ×2 (09:22→21:10)
[2016-10-29] MEDS: LEVETIRACETAM 500 MG/5 ML LIQUID UDC GT SCH ×2 (09:22→21:10)
[2016-10-29] MEDS: PHENOBARBITAL GT SCH ×2 (09:24→21:10)
[2016-10-29] MEDS: FAMOTIDINE 20 MG TABLET GT SCH ×2 (09:24→21:10)
[2016-10-29] MEDS: FUROSEMIDE 40 MG/4 ML GT SCH (09:24)
[2016-10-29] MEDS: COD LIVER OIL/ZINC OXIDE OINT 113 GM TUBE TOP SCH ×2 (09:25→21:10)
[2016-10-29] MEDS: VITAMINS A AND D OINT TP SCH (09:25)
[2016-10-29] MEDS: HYDROGEN PEROXIDE 3% 118 ML BOTTLE TP SCH ×2 (09:25→21:10)
[2016-10-29] MEDS: POTASSIUM CHLORIDE 20 MEQ TAB.PRT.SR XX SCH ×2 (09:25→17:07)
[2016-10-29] MEDS: INSULIN DETEMIR 300 UNIT/3 ML CARTRIDGE SQ SCH ×2 (09:28→21:06)
[2016-10-29] MEDS: DIABETICSOURCE AC 1000ML LIQUID GT PRN (17:08)
--- NOTE | 2016-10-29 19:00 | NUR ---
Trached patient was endorsed on continuous mechanical ventilation with ordered vent settings AC 12 VT 450 PEEP 5 FIO2 35%. No signs or symptoms of respiratory distress noted at this time. She is trached with a shiley #6 DCT; BENCH ASSEMBLY INSPECTOR used for cuff inflation. HME was changed without complications. Ambubag and spare trach are at bedside.
[2016-10-29] MEDS: CALCIUM CARBONATE 500 MG TAB.CHEW GT SCH (21:10)
[2016-10-29] MEDS: [UNRECOGNIZED DRUG - OTHER] GT SCH (21:10)
[2016-10-29] MEDS: FISH OIL GT SCH (21:10)
[2016-10-29 22:12] VITALS: BP 123/61
[2016-10-30] MEDS: BACLOFEN 10 MG TABLET GT SCH ×3 (05:03→18:01)
[2016-10-30] MEDS: NUTRISOURCE FIBER 4 GM PACKET GT SCH ×3 (05:03→21:08)
[2016-10-30] MEDS: BLOOD SUGAR DIAGNOSTIC 1 EACH STRIP VI SCH ×3 (05:33→18:14)
[2016-10-30] MEDS: INSULIN REGULAR, HUMAN 300 UNIT/3 ML VIAL SQ PRN ×3 (05:35→18:15)
[2016-10-30 08:00] VITALS: BP 106/57
[2016-10-30] MEDS: FUROSEMIDE 40 MG/4 ML GT SCH (08:13)
[2016-10-30] MEDS: PHENOBARBITAL GT SCH ×2 (08:13→20:58)
[2016-10-30] MEDS: FAMOTIDINE 20 MG TABLET GT SCH ×2 (08:13→20:58)
[2016-10-30] MEDS: LEVETIRACETAM 500 MG/5 ML LIQUID UDC GT SCH ×2 (08:13→20:58)
[2016-10-30] MEDS: ACIDOPHILUS/BULGARICUS CHEW TAB GT SCH ×2 (08:13→20:57)
[2016-10-30] MEDS: COD LIVER OIL/ZINC OXIDE OINT 113 GM TUBE TOP SCH ×2 (08:14→21:07)
[2016-10-30] MEDS: VITAMINS A AND D OINT TP SCH (08:14)
[2016-10-30] MEDS: POTASSIUM CHLORIDE 20 MEQ TAB.PRT.SR XX SCH ×2 (08:14→18:00)
[2016-10-30] MEDS: HYDROGEN PEROXIDE 3% 118 ML BOTTLE TP SCH ×2 (08:14→21:07)
[2016-10-30] MEDS: INSULIN DETEMIR 300 UNIT/3 ML CARTRIDGE SQ SCH ×2 (08:15→21:08)
--- NOTE | 2016-10-30 13:26 | NUR ---
SEEN BY HARSH CORRAL.
--- NOTE | 2016-10-30 13:31 | NUR ---
SEEN BY DENISE FULLER.
--- NOTE | 2016-10-30 20:15 | NUR ---
Resident endorsed on CMV with ordered vent settings of AC 12 VT 450 PEEP 5 FIO2 35%. No S/S of respiratory distress noted at this time. She is trached with a shiley #6 DCT; RIVET THROWER used for cuff inflation. HME was changed without complications. Alarm parameters assessed and are on/audible. Ambubag and spare trach are at bedside.
[2016-10-30] MEDS: [UNRECOGNIZED DRUG - OTHER] GT SCH (20:58)
[2016-10-30] MEDS: FISH OIL GT SCH (20:58)
[2016-10-30] MEDS: CALCIUM CARBONATE 500 MG TAB.CHEW GT SCH (20:59)
[2016-10-30 22:18] VITALS: BP 118/69
[2016-10-31] MEDS: BLOOD SUGAR DIAGNOSTIC 1 EACH STRIP VI SCH ×4 (00:42→18:41)
[2016-10-31] MEDS: BACLOFEN 10 MG TABLET GT SCH ×4 (00:42→18:10)
[2016-10-31] MEDS: INSULIN REGULAR, HUMAN 300 UNIT/3 ML VIAL SQ PRN ×2 (00:43→05:30)
[2016-10-31] MEDS: NUTRISOURCE FIBER 4 GM PACKET GT SCH ×3 (05:25→21:09)
--- NOTE | 2016-10-31 07:30 | NUR ---
RECEIVED FROM NOC SHIFT PT. WITH REDNESS ON GT SITE AND SMALL AMMOUNT OF RED BLOOD FROM GASTRIC CONTENT ,STABLE V/S ,NO DISTRESS ONLY A SMALL AMOUNT OF LOCAL INDURATION AROUNF GT SITE. DR. HICKMAN AWRE AND WITH NEW ORDERS AND CARRIED OUT.DR. BARNETT WAS NOTIFIED TOO THAT GT IS IN PLACE BUT IS REDDED AND INDURATED AROUND GT SITE AND HE ASKED NURSE TO CONTINUE USING GT AND TO F/U WITH G.I DR. DR. HICKMAN ORDERED.(MESSAGE LEFT TO DR. NESS ALREADY).
[2016-10-31 08:00] VITALS: BP 111/66
[2016-10-31] MEDS: ACIDOPHILUS/BULGARICUS CHEW TAB GT SCH ×2 (08:35→21:08)
[2016-10-31] MEDS: LEVETIRACETAM 500 MG/5 ML LIQUID UDC GT SCH ×2 (08:35→21:08)
[2016-10-31] MEDS: PHENOBARBITAL GT SCH ×2 (08:37→21:09)
[2016-10-31] MEDS: FAMOTIDINE 20 MG TABLET GT SCH ×2 (08:37→21:09)
[2016-10-31] MEDS: FUROSEMIDE 40 MG/4 ML GT SCH (08:37)
[2016-10-31] MEDS: COD LIVER OIL/ZINC OXIDE OINT 113 GM TUBE TOP SCH ×2 (08:37→21:09)
[2016-10-31] MEDS: POTASSIUM CHLORIDE 20 MEQ TAB.PRT.SR XX SCH ×2 (08:37→18:00)
[2016-10-31] MEDS: VITAMINS A AND D OINT TP SCH (08:37)
[2016-10-31] MEDS: HYDROGEN PEROXIDE 3% 118 ML BOTTLE TP SCH ×2 (08:37→21:09)
[2016-10-31] MEDS: INSULIN DETEMIR 300 UNIT/3 ML CARTRIDGE SQ SCH (08:39)
[2016-10-31 09:10] LABS: BASOPHILS % (AUTO) 0.9 % (0.0-2.0); EOSINOPHILS # (AUTO) 0.2 K/uL (0.0-0.7); EOSINOPHILS % (AUTO) 4.9 % (0.0-7.0); HEMATOCRIT 28.9 % (31.2-41.9); HEMOGLOBIN 9.6 g/dL (10.9-14.3); LYMPHOCYTES # (AUTO) 1.5 K/uL (20.0-40.0); LYMPHOCYTES % (AUTO) 37.1 % (20.5-51.5); MEAN CORPUSCULAR HEMOGLOBIN 33.4 uug (24.7-32.8); MEAN CORPUSCULAR HGB CONC 33 g/dL (32.3-35.6); MONOCYTES # (AUTO) 0.4 K/uL (2.0-10.0); MONOCYTES % (AUTO) 8.7 % (0.0-11.0); NEUTROPHILS % (AUTO) 48.4 % (38.5-71.5); PLATELET COUNT (AUTO) 82 K/uL (179-408); RED BLOOD CELL COUNT(AUTO) 2.86 MIL/uL (3.63-4.92); WHITE BLOOD COUNT (AUTO) 4.1 K/uL (3.8-11.8)
[2016-10-31 09:45] LABS: BAND % (MANUAL) 5 % (0-10); EOSINOPHILS % (MANUAL) 5 % (0-8); LYMPHOCYTES % (MANUAL) 40 % (20-40); MONOCYTES % (MANUAL) 7 % (2-10); NEUTROPHILS % (MANUAL) 43 % (42-75)
--- NOTE | 2016-10-31 11:34 | NUR ---
DR. NESS WAS CALLED AGAIN AND WITH NEW ORDERS CARRIED OUT, WAS PAGED RE: NEED TO HOLD GT FEEDING AND F/U FOR NUTRITIONAL NEEDS.PT. NOTED WITH AN EPISODE OF NAUSEA,NOTED PT. WITH BILE COLOR GASTRIC RESIDUALS.IN VERY SMALL AMOUNT,PT. REMAINS IN NO DISTRESS TOLERATING VENT SETTINGS.PT'S FATHER WAS AWARE OF CONDITION AND TX AND IN AGREEMENT AND STATED THAT WILL SEE PATIENT LATER IN AFTERNOON.
--- NOTE | 2016-10-31 12:32 | NUR ---
DR. BARNETT WAS CALLED AND AWARE OF PT'S CONDITION ,NO N/V ,PT. HAD LARGE BM AND WITH NEW ORDERS CARRIED OUT.
[2016-10-31] MEDS: IV D5 1/2 NS 1000 ML 1,000 ML IV PRN ×2 (13:00→14:19)
--- NOTE | 2016-10-31 17:03 | NUR ---
RESIDENT REMAIN ON CURRENT VENT SETTINGS OF AC 12,VT 450, PEEP 5 AND FIO2 35%. NO DISTRESS WITH O2 SATURATION OF 98% TODAY. SUCTIONED FOR MODERATE AMOUNT OF THICK WHITISH SECRETIONS. CHANGED HUMIDIFIER FILTER.
--- NOTE | 2016-10-31 18:24 | NUR ---
MESSAGE LEFT TO DR. HERBERT FOR CONSULTATION.
--- NOTE | 2016-10-31 19:15 | NUR ---
SEEN BY DR. NESS(G.I0 AND WITH NEW ORDERS ,ENDORSED TO NOC SHIFT TO F/U.
[2016-10-31] MEDS ORDERED: INSULIN DETEMIR 300 UNIT/3 ML CARTRIDGE SQ SCH (21:00)
[2016-10-31 21:08] VITALS: BP 107/63
[2016-10-31] MEDS: FISH OIL GT SCH (21:08)
[2016-10-31] MEDS: [UNRECOGNIZED DRUG - OTHER] GT SCH (21:08)
[2016-10-31] MEDS: CALCIUM CARBONATE 500 MG TAB.CHEW GT SCH (21:09)
--- NOTE | 2016-10-31 23:55 | NUR ---
Still on IV hydration of D51/2 NS @ 75 ml/HR, infusing well on Right hand, no infiltration noted. Afebrile, gt feeding and water flushes on hold, gt site looks red with some b reddish drainage, gt care done and will start on bactroban treatment to gt site, abdomen is distended, + bowel sounds noted, GT intact and in place, kept clean and comfortable. Addendum: 11/01/16 at 0553 by MARINA PEÑA RN Gt site noted to be red and hard, handled gently, kept clean an comfortable.
[2016-11-01] MEDS: BACLOFEN 10 MG TABLET GT SCH ×4 (00:23→17:10)
[2016-11-01] MEDS: BLOOD SUGAR DIAGNOSTIC 1 EACH STRIP VI SCH ×4 (00:27→17:10)
--- NOTE | 2016-11-01 01:18 | NUR ---
PT ON CONT HT 50 VENT WITH SHILEY # [address] AND SECURED, WITH SAME CURRENT VENT SETTINGS, PT DOES ASSIST AT TIMES, GOOD COUGH EFFORT, CHECK CUFF, SUCTIONED LIGHT PALE YELL TINGE SECRETIONS, CHANGE HME, NO VENT CHANGES MADE AT THIS TIME, ALL ALARMS OK, AMBU BAG AT BEDSIDE, NO SIGNS OF RESP. DISTRESS. Andi CHAKRABORTYP Addendum: 11/01/16 at 0121 by ETHEL FERGUSON RT Amended: Links added.
[2016-11-01] MEDS: IV D5 1/2 NS 1000 ML 1,000 ML IV PRN ×2 (01:30→16:13)
[2016-11-01] MEDS: NUTRISOURCE FIBER 4 GM PACKET GT SCH ×3 (05:54→21:21)
[2016-11-01 08:00] VITALS: BP 120/67
--- NOTE | 2016-11-01 08:07 | NUR ---
Pt received in bed, laying semi-Huff's, eyes open, obtunded - unable to communicate, withdraws to physical stimuli - obtunded.. Pt trach: [place]aley [address]/secure with tie, no visible sign of irritation/breakdown noted around/under trach tie.. Trach site clean/dry at this time, stoma appears normal, no discoloration noted.. Continuous mechanical ventilation, vent: HT-50 w/settings: A/C 12, Vt 450, PEEP +5, FiO2 35%, tolerating well, no changes made to vent settings at this time.. Vent alarms checked, alarms are on/audible and functioning properly at this time.. BVM/back up trach at bedside.. No s/s of respiratory distress/S.O.B noted.. Will continue to monitor..
[2016-11-01] MEDS ORDERED: INSULIN DETEMIR 300 UNIT/3 ML CARTRIDGE SQ SCH (09:00)
[2016-11-01] MEDS: FAMOTIDINE 20 MG TABLET GT SCH ×2 (09:56→21:18)
[2016-11-01] MEDS: PHENOBARBITAL GT SCH ×2 (09:56→21:18)
[2016-11-01] MEDS: LEVETIRACETAM 500 MG/5 ML LIQUID UDC GT SCH ×2 (09:56→21:18)
[2016-11-01] MEDS: ACIDOPHILUS/BULGARICUS CHEW TAB GT SCH ×2 (09:56→21:18)
[2016-11-01] MEDS: FUROSEMIDE 40 MG/4 ML GT SCH (09:56)
[2016-11-01] MEDS: COD LIVER OIL/ZINC OXIDE OINT 113 GM TUBE TOP SCH ×2 (09:57→21:18)
[2016-11-01] MEDS: VITAMINS A AND D OINT TP SCH (09:57)
[2016-11-01] MEDS: POTASSIUM CHLORIDE 20 MEQ TAB.PRT.SR XX SCH ×2 (09:57→17:10)
[2016-11-01] MEDS: HYDROGEN PEROXIDE 3% 118 ML BOTTLE TP SCH ×2 (09:57→21:20)
[2016-11-01] MEDS: MUPIROCIN 2% OINT 22 GM TUBE TP SCH ×3 (11:25→17:10)
[2016-11-01] MEDS: INSULIN REGULAR, HUMAN 300 UNIT/3 ML VIAL SQ PRN ×2 (11:32→17:10)
--- NOTE | 2016-11-01 16:30 | NUR ---
CALL DR NESS GI REGARDING THE ABDOMINAL ULTRASOUND,NO MASS OR FLUID COLLECTION ,NO PERISTOMAL ABSCESS IDENTIFIED.SPOKE TO SILVIA.
--- NOTE | 2016-11-01 17:15 | NUR ---
SEEN AND EXAMINED BY DR BARNETT WITH NEW ORDERS NOTED AND CARRIED OUT,IV FLUIDS DISCONTINUE.
--- NOTE | 2016-11-01 21:02 | NUR ---
RECEIVED PATIENT ON THE HT-50 VENTILATOR. PATIENT IS ON AC12, VT 450, PEEP +5, 35% FIO2. SUCTIONED SMALL AMOUNTS OF THICK WHITE AND YELLOW SECRETIONS. TRACH IS PROPERLY SECURED WITH TRACH TIES. AIR WAY IS PATENT. BACK UP TRACH AND AMBU IS BY BEDSIDE. PRN HME CHANGED. VENTILATOR IS PLUGGED IN THE RED OUTLET. VENT ALARMS ARE ON AND AUDIBLE. NO SOB NOTED AT THIS TIME. WILL CONTINUE TO MONITOR PATIENT THROUGHOUT SHIFT.
[2016-11-01] MEDS: [UNRECOGNIZED DRUG - OTHER] GT SCH (21:18)
[2016-11-01] MEDS: FISH OIL GT SCH (21:18)
[2016-11-01] MEDS: CALCIUM CARBONATE 500 MG TAB.CHEW GT SCH (21:18)
[2016-11-01] MEDS: INSULIN DETEMIR 300 UNIT/3 ML CARTRIDGE SQ SCH (21:19)
--- NOTE | 2016-11-01 23:00 | NUR ---
Gt feeding tolerating well, no nausea or vomiting and no residual noted. Around gt site is kind of hard, but Gt is in place, noted with some bloody drainage from gt site, gt care done and handled patient gently, afebrile , no signs of hypo/hyperglycemia noted, kept clean and comfortable.
[2016-11-01 23:25] VITALS: BP 104/51
[2016-11-02] MEDS: BACLOFEN 10 MG TABLET GT SCH ×4 (00:28→17:03)
[2016-11-02] MEDS: BLOOD SUGAR DIAGNOSTIC 1 EACH STRIP VI SCH ×4 (00:28→17:06)
[2016-11-02] MEDS: NUTRISOURCE FIBER 4 GM PACKET GT SCH ×3 (05:25→21:20)
[2016-11-02 08:00] VITALS: BP 112/66
--- NOTE | 2016-11-02 08:20 | NUR ---
Pt received in bed, laying semi-Huff's, with eyes open, unable to communicate, withdraws to physical stimuli - obtunded.. Pt trach: [place]aley [address] / secure with tie, no visible sign of irritation / breakdown noted around / under trach tie.. Trach site clean / dry at this time, stoma appears normal, no discoloration noted.. Continuous mechanical ventilation, vent: HT-50 w/settings: A/C 12, Vt 450, PEEP +5, FiO2 35%, tolerating well, no changes made to vent settings at this time.. Vent alarms checked, alarms are on / audible and functioning properly at this time.. BVM/back up trach at bedside.. No s/s of respiratory distress / S.O.B noted.. Will continue to monitor..
--- NOTE | 2016-11-02 08:24 | NUR ---
SEEN BY DR. NESS (G.I) AND WITH NNO.
[2016-11-02] MEDS: HYDROGEN PEROXIDE 3% 118 ML BOTTLE TP SCH ×2 (09:34→20:52)
[2016-11-02] MEDS: FUROSEMIDE 40 MG/4 ML GT SCH (09:34)
[2016-11-02] MEDS: ACIDOPHILUS/BULGARICUS CHEW TAB GT SCH ×2 (09:34→20:48)
[2016-11-02] MEDS: LEVETIRACETAM 500 MG/5 ML LIQUID UDC GT SCH ×2 (09:34→20:48)
[2016-11-02] MEDS: MUPIROCIN 2% OINT 22 GM TUBE TP SCH ×3 (09:34→17:03)
[2016-11-02] MEDS: PHENOBARBITAL GT SCH ×2 (09:34→20:48)
[2016-11-02] MEDS: INSULIN DETEMIR 300 UNIT/3 ML CARTRIDGE SQ SCH ×2 (09:34→20:50)
[2016-11-02] MEDS: FAMOTIDINE 20 MG TABLET GT SCH ×2 (09:34→20:48)
[2016-11-02] MEDS: COD LIVER OIL/ZINC OXIDE OINT 113 GM TUBE TOP SCH ×2 (09:34→20:52)
[2016-11-02] MEDS: VITAMINS A AND D OINT TP SCH (09:35)
[2016-11-02] MEDS: POTASSIUM CHLORIDE 20 MEQ TAB.PRT.SR XX SCH ×2 (09:35→17:03)
[2016-11-02] MEDS: INSULIN REGULAR, HUMAN 300 UNIT/3 ML VIAL SQ PRN ×2 (12:18→17:13)
--- NOTE | 2016-11-02 14:14 | NUR ---
SEEN BY HARSH FULLER.
[2016-11-02] MEDS: [UNRECOGNIZED DRUG - OTHER] GT SCH (20:48)
[2016-11-02] MEDS: FISH OIL GT SCH (20:48)
[2016-11-02] MEDS: CALCIUM CARBONATE 500 MG TAB.CHEW GT SCH (20:49)
[2016-11-02 23:39] VITALS: BP 99/57
[2016-11-03] MEDS: BLOOD SUGAR DIAGNOSTIC 1 EACH STRIP VI SCH ×4 (00:09→17:20)
[2016-11-03] MEDS: BACLOFEN 10 MG TABLET GT SCH ×4 (00:09→17:20)
[2016-11-03] MEDS: DIABETICSOURCE AC 1000ML LIQUID GT PRN (00:11)
[2016-11-03] MEDS: NUTRISOURCE FIBER 4 GM PACKET GT SCH ×3 (05:49→21:18)
[2016-11-03 08:00] VITALS: BP 95/55
--- NOTE | 2016-11-03 08:40 | NUR ---
PT RECEIVED ON CONTINUOUS MECHANICAL VENTILATION. VENT SETTINGS ARE AC 12, VT 450, PEEP +5, 35% FIO2. SH. 6DCT TRACH IS PATENT AND SECURED AT THIS TIME. PT SHOWING NO S/S OF RESPIRATORY DISTRESS. SUCTIONED MODERATE AMOUNT OF THICK, YELLOW SECRETIONS. HME CHANGED. ALARM PARAMETERS CHECKED AND ARE FUNCTIONING WELL. AMBU BAG AND BACK UP TRACH ARE AT BEDSIDE. VENT IS PLUGGED INTO RED EMERGENCY OUTLET. WILL CONTINUE TO MONITOR PT THROUGHOUT SHIFT.
[2016-11-03] MEDS: INSULIN DETEMIR 300 UNIT/3 ML CARTRIDGE SQ SCH ×2 (09:40→21:22)
[2016-11-03] MEDS: LEVETIRACETAM 500 MG/5 ML LIQUID UDC GT SCH ×2 (09:42→21:17)
[2016-11-03] MEDS: ACIDOPHILUS/BULGARICUS CHEW TAB GT SCH ×2 (09:42→21:17)
[2016-11-03] MEDS: PHENOBARBITAL GT SCH ×2 (09:43→21:18)
[2016-11-03] MEDS: FUROSEMIDE 40 MG/4 ML GT SCH (09:43)
[2016-11-03] MEDS: FAMOTIDINE 20 MG TABLET GT SCH ×2 (09:44→21:18)
[2016-11-03] MEDS: COD LIVER OIL/ZINC OXIDE OINT 113 GM TUBE TOP SCH ×2 (09:44→21:18)
[2016-11-03] MEDS: MUPIROCIN 2% OINT 22 GM TUBE TP SCH ×3 (09:44→17:20)
[2016-11-03] MEDS: HYDROGEN PEROXIDE 3% 118 ML BOTTLE TP SCH ×2 (09:44→21:18)
[2016-11-03] MEDS: VITAMINS A AND D OINT TP SCH (09:45)
[2016-11-03] MEDS: POTASSIUM CHLORIDE 20 MEQ TAB.PRT.SR XX SCH ×2 (09:45→17:20)
[2016-11-03] MEDS: INSULIN REGULAR, HUMAN 300 UNIT/3 ML VIAL SQ PRN ×2 (12:02→17:20)
[2016-11-03] MEDS: [UNRECOGNIZED DRUG - OTHER] GT SCH (21:17)
[2016-11-03] MEDS: FISH OIL GT SCH (21:17)
[2016-11-03] MEDS: CALCIUM CARBONATE 500 MG TAB.CHEW GT SCH (21:18)
[2016-11-03 23:39] VITALS: BP 123/60
[2016-11-04] MEDS: INSULIN REGULAR, HUMAN 300 UNIT/3 ML VIAL SQ PRN ×3 (01:13→23:10)
--- NOTE | 2016-11-04 04:55 | NUR ---
PT ON CONT HT 50 VENT WITH SHILEY # [address] AND SECURED, WITH SAME CURRENT VENT SETTINGS, PT DOES ASSIST AT TIMES, CHECK CUFF, CHANGE HME, SUCTIONED LIGHT PALE YELL TINGE SECRETIONS, WITH GOOD COUGH EFFORT, ALL ALARMS OK, AMBU BAG AT BEDSIDE, NO VENT CHANGES MADE AT THIS TIME, PT WITH NO SIGNS OF RESP. DISTRESS NOTED. Andi CHAKRABORTYP Addendum: 11/04/16 at 0458 by ETHEL FERGUSON RT Amended: Links added.
[2016-11-04] MEDS: BACLOFEN 10 MG TABLET GT SCH ×5 (05:57→23:09)
[2016-11-04] MEDS: NUTRISOURCE FIBER 4 GM PACKET GT SCH ×3 (05:57→21:32)
[2016-11-04] MEDS: BLOOD SUGAR DIAGNOSTIC 1 EACH STRIP VI SCH ×5 (05:57→23:09)
--- NOTE | 2016-11-04 06:50 | NUR ---
Pt received in semi diaz position, has limited response to verbal stimuli, and is on Continuous mechanical ventilation via Trach. Pt is on [place] HT-50 vent with ordered settings of A/C-12, VT-450, PEEP +5, FIO2-35%. Trach is a [employer]ley 6 DCT. Trach is patent and secure. No irritation or redness noted around stoma or trach tie. Tolerating vent settings well. SpO2-99%. HME changed. PPE used. Vent alarm parameters checked, on and audible. Vent plugged into red emergency outlet. Bag/valve/mask and back up trach bedside. No signs or symptoms of respiratory distress noted. Will continue to monitor.
[2016-11-04 08:02] VITALS: BP 118/59
[2016-11-04] MEDS: INSULIN DETEMIR 300 UNIT/3 ML CARTRIDGE SQ SCH ×2 (08:54→21:28)
[2016-11-04] MEDS: ACIDOPHILUS/BULGARICUS CHEW TAB GT SCH ×2 (08:56→21:31)
[2016-11-04] MEDS: LEVETIRACETAM 500 MG/5 ML LIQUID UDC GT SCH ×2 (08:56→21:31)
[2016-11-04] MEDS: FUROSEMIDE 40 MG/4 ML GT SCH (08:57)
[2016-11-04] MEDS: PHENOBARBITAL GT SCH ×2 (08:57→21:31)
[2016-11-04] MEDS: FAMOTIDINE 20 MG TABLET GT SCH ×2 (08:58→21:31)
[2016-11-04] MEDS: MUPIROCIN 2% OINT 22 GM TUBE TP SCH ×3 (08:59→17:40)
[2016-11-04] MEDS: COD LIVER OIL/ZINC OXIDE OINT 113 GM TUBE TOP SCH ×2 (08:59→21:32)
[2016-11-04] MEDS: POTASSIUM CHLORIDE 20 MEQ TAB.PRT.SR XX SCH ×2 (09:04→17:41)
[2016-11-04] MEDS: HYDROGEN PEROXIDE 3% 118 ML BOTTLE TP SCH ×2 (09:04→21:32)
[2016-11-04] MEDS: VITAMINS A AND D OINT TP SCH (09:04)
--- NOTE | 2016-11-04 12:58 | NUR ---
ERROR DONE ON GLUCOMETER. BS 148, NO INSULIN GIVEN ORDERED.
--- NOTE | 2016-11-04 19:14 | NUR ---
louie myers, nurse practitioner was in, no new orders.
[2016-11-04 20:00] VITALS: BP 96/52
[2016-11-04] MEDS: CALCIUM CARBONATE 500 MG TAB.CHEW GT SCH (21:31)
[2016-11-04] MEDS: FISH OIL GT SCH (21:31)
[2016-11-04] MEDS: [UNRECOGNIZED DRUG - OTHER] GT SCH (21:31)
--- NOTE | 2016-11-05 01:00 | NUR ---
PT ON CONT HT 50 VENT WITH SHILEY # [address] AND SECURED, WITH SAME CURRENT VENT SETTINGS, PT DOES ASSIST AT TIMES, GOOD COUGH EFFORT, SUCTIONED LIGHT PALE YELL TINGE SECRETIONS, AND SUCTION MOUTH WITH KARINA HALEY, ALL ALARMS OK, AMBU BAG AT BEDSIDE, CHANGE HME AND BOWEN FERGUSON RCP Addendum: 11/05/16 at 0102 by ETHEL FERGUSON RT Amended: Links added.
[2016-11-05] MEDS: BACLOFEN 10 MG TABLET GT SCH ×3 (05:46→17:07)
[2016-11-05] MEDS: NUTRISOURCE FIBER 4 GM PACKET GT SCH ×3 (05:46→22:11)
[2016-11-05] MEDS: BLOOD SUGAR DIAGNOSTIC 1 EACH STRIP VI SCH ×3 (05:46→17:07)
--- NOTE | 2016-11-05 06:50 | NUR ---
Pt received in semi diaz position, has limited response to verbal stimuli, and is on Continuous mechanical ventilation via Trach. Pt is on [place] HT-50 vent with ordered settings of A/C-12, VT-450, PEEP +5, FIO2-35%. Trach is a dabanniu.comley 6 DCT. Trach is patent and secure. No irritation or redness noted around stoma or trach tie. Tolerating vent settings well. SpO2-99%. HME changed. PPE used. Vent alarm parameters checked, on and audible. Vent plugged into red emergency outlet. Bag/valve/mask and back up trach bedside. No signs or symptoms of respiratory distress noted. Will continue to monitor.
[2016-11-05 08:03] VITALS: BP 102/62
[2016-11-05] MEDS: INSULIN DETEMIR 300 UNIT/3 ML CARTRIDGE SQ SCH ×2 (09:08→21:00)
[2016-11-05] MEDS: LEVETIRACETAM 500 MG/5 ML LIQUID UDC GT SCH ×2 (09:10→21:00)
[2016-11-05] MEDS: ACIDOPHILUS/BULGARICUS CHEW TAB GT SCH ×2 (09:10→21:00)
[2016-11-05] MEDS: FUROSEMIDE 40 MG/4 ML GT SCH (09:10)
[2016-11-05] MEDS: FAMOTIDINE 20 MG TABLET GT SCH ×2 (09:10→21:00)
[2016-11-05] MEDS: PHENOBARBITAL GT SCH ×2 (09:10→21:00)
[2016-11-05] MEDS: COD LIVER OIL/ZINC OXIDE OINT 113 GM TUBE TOP SCH ×2 (09:11→21:00)
[2016-11-05] MEDS: HYDROGEN PEROXIDE 3% 118 ML BOTTLE TP SCH ×2 (09:11→21:00)
[2016-11-05] MEDS: MUPIROCIN 2% OINT 22 GM TUBE TP SCH ×3 (09:11→17:06)
[2016-11-05] MEDS: POTASSIUM CHLORIDE 20 MEQ TAB.PRT.SR XX SCH ×2 (09:11→17:06)
[2016-11-05] MEDS: VITAMINS A AND D OINT TP SCH (09:11)
[2016-11-05] MEDS: INSULIN REGULAR, HUMAN 300 UNIT/3 ML VIAL SQ PRN (12:43)
[2016-11-05] MEDS: [UNRECOGNIZED DRUG - OTHER] GT SCH (21:00)
[2016-11-05] MEDS: CALCIUM CARBONATE 500 MG TAB.CHEW GT SCH (21:00)
[2016-11-05] MEDS: FISH OIL GT SCH (21:00)
[2016-11-05 22:02] VITALS: BP 99/51
--- NOTE | 2016-11-05 22:08 | NUR ---
PT ON CONT HT 50 VENT WITH SHILEY # [address] AND SECURED, WITH SAME CURRENT VENT SETTINGS, PT DOES ASSIST AT TIMES, WITH GOOD COUGH EFFORT, SUCTIONED LIGHT PALE YELL TINGE SECRETIONS, CHECK CUFF, CHANGE HME, ALL ALARMS OK, AMBU BAG AT BEDSIDE, NO VENT CHANGES MADE AT THIS TIME.Andi FERGUSON RCP Addendum: 11/05/16 at 2209 by ETHEL FERGUSON RT Amended: Links added.
[2016-11-06] MEDS: BLOOD SUGAR DIAGNOSTIC 1 EACH STRIP VI SCH ×4 (05:09→17:30)
[2016-11-06] MEDS: BACLOFEN 10 MG TABLET GT SCH ×5 (05:09→23:09)
[2016-11-06] MEDS: NUTRISOURCE FIBER 4 GM PACKET GT SCH ×3 (05:09→22:09)
[2016-11-06 07:48] LABS: POTASSIUM 3.9 mmol/L (3.5-5.1)
[2016-11-06 07:56] LABS: BASOPHILS % (AUTO) 0.6 % (0.0-2.0); EOSINOPHILS # (AUTO) 0.2 K/uL (0.0-0.7); EOSINOPHILS % (AUTO) 4.5 % (0.0-7.0); HEMATOCRIT 26.2 % (31.2-41.9); HEMOGLOBIN 8.6 g/dL (10.9-14.3); LYMPHOCYTES # (AUTO) 2.2 K/uL (20.0-40.0); LYMPHOCYTES % (AUTO) 46.3 % (20.5-51.5); MEAN CORPUSCULAR HGB CONC 33 g/dL (32.3-35.6); MEAN CORPUSCULAR VOLUME 101.1 fL (75.5-95.3); MONOCYTES # (AUTO) 0.3 K/uL (2.0-10.0); MONOCYTES % (AUTO) 6.3 % (0.0-11.0); NEUTROPHILS # (AUTO) 1.9 K/uL (1.8-8.9); NEUTROPHILS % (AUTO) 42.3 % (38.5-71.5); PLATELET COUNT (AUTO) 82 K/uL (179-408); RED BLOOD CELL COUNT(AUTO) 2.59 MIL/uL (3.63-4.92); WHITE BLOOD COUNT (AUTO) 4.6 K/uL (3.8-11.8)
[2016-11-06 08:00] VITALS: BP 98/65
[2016-11-06 09:38] LABS: BAND % (MANUAL) 7 % (0-10); EOSINOPHILS % (MANUAL) 7 % (0-8); LYMPHOCYTES % (MANUAL) 46 % (20-40); MONOCYTES % (MANUAL) 5 % (2-10); NEUTROPHILS % (MANUAL) 35 % (42-75)
[2016-11-06] MEDS: FUROSEMIDE 40 MG/4 ML GT SCH (09:44)
[2016-11-06] MEDS: FAMOTIDINE 20 MG TABLET GT SCH ×2 (09:44→20:54)
[2016-11-06] MEDS: LEVETIRACETAM 500 MG/5 ML LIQUID UDC GT SCH ×2 (09:44→20:54)
[2016-11-06] MEDS: ACIDOPHILUS/BULGARICUS CHEW TAB GT SCH ×2 (09:44→20:54)
[2016-11-06] MEDS: PHENOBARBITAL GT SCH ×2 (09:44→20:54)
[2016-11-06] MEDS: COD LIVER OIL/ZINC OXIDE OINT 113 GM TUBE TOP SCH ×2 (09:45→20:55)
[2016-11-06] MEDS: MUPIROCIN 2% OINT 22 GM TUBE TP SCH ×3 (09:45→17:28)
[2016-11-06] MEDS: VITAMINS A AND D OINT TP SCH (09:45)
[2016-11-06] MEDS: POTASSIUM CHLORIDE 20 MEQ TAB.PRT.SR XX SCH ×2 (09:45→17:28)
[2016-11-06] MEDS: HYDROGEN PEROXIDE 3% 118 ML BOTTLE TP SCH ×2 (09:45→20:55)
[2016-11-06] MEDS: INSULIN DETEMIR 300 UNIT/3 ML CARTRIDGE SQ SCH ×2 (09:46→20:46)
[2016-11-06] MEDS: INSULIN REGULAR, HUMAN 300 UNIT/3 ML VIAL SQ PRN (11:43)
--- NOTE | 2016-11-06 14:04 | NUR ---
Seen by Seble COLLAZO, new orders carried out, cbc, bmp on . Addendum: 11/06/16 at 1406 by THAD CARNEY RN VALE notified of Na 154, hgb 8.6
--- NOTE | 2016-11-06 20:35 | NUR ---
Pt received in semi diaz position, has limited response to verbal stimuli, and is on Continuous mechanical ventilation via Trach. Pt is on [place] HT-50 vent with ordered settings of A/C-12, VT-450, PEEP +5, FIO2-35%. Trach is a [employer]ley 6 DCT. Trach is patent and secure. No irritation or redness noted around stoma or trach tie. Tolerating vent settings well. SpO2-99%. HME changed. PPE used. Vent alarm parameters checked, on and audible. Vent plugged into red emergency outlet. Bag/valve/mask and back up trach bedside. No signs or symptoms of respiratory distress noted. Will continue to monitor.
[2016-11-06 20:52] VITALS: BP 98/59
[2016-11-06] MEDS: FISH OIL GT SCH (20:54)
[2016-11-06] MEDS: [UNRECOGNIZED DRUG - OTHER] GT SCH (20:54)
[2016-11-06] MEDS: CALCIUM CARBONATE 500 MG TAB.CHEW GT SCH (20:55)
[2016-11-07] MEDS: BLOOD SUGAR DIAGNOSTIC 1 EACH STRIP VI SCH ×4 (00:09→17:28)
[2016-11-07] MEDS: BACLOFEN 10 MG TABLET GT SCH ×3 (05:36→17:28)
[2016-11-07] MEDS: DIABETICSOURCE AC 1000ML LIQUID GT PRN (05:36)
[2016-11-07] MEDS: NUTRISOURCE FIBER 4 GM PACKET GT SCH ×3 (05:36→21:24)
[2016-11-07 08:03] VITALS: BP 98/60
[2016-11-07] MEDS: ACIDOPHILUS/BULGARICUS CHEW TAB GT SCH ×2 (08:36→21:22)
[2016-11-07] MEDS: LEVETIRACETAM 500 MG/5 ML LIQUID UDC GT SCH ×2 (08:37→21:22)
[2016-11-07] MEDS: PHENOBARBITAL GT SCH ×2 (08:38→21:23)
[2016-11-07] MEDS: FUROSEMIDE 40 MG/4 ML GT SCH (08:38)
[2016-11-07] MEDS: FAMOTIDINE 20 MG TABLET GT SCH ×2 (08:38→21:23)
[2016-11-07] MEDS: COD LIVER OIL/ZINC OXIDE OINT 113 GM TUBE TOP SCH ×2 (08:39→21:24)
[2016-11-07] MEDS: POTASSIUM CHLORIDE 20 MEQ TAB.PRT.SR XX SCH ×2 (08:39→17:28)
[2016-11-07] MEDS: MUPIROCIN 2% OINT 22 GM TUBE TP SCH ×3 (08:39→17:28)
[2016-11-07] MEDS: HYDROGEN PEROXIDE 3% 118 ML BOTTLE TP SCH ×2 (08:39→21:24)
[2016-11-07] MEDS: VITAMINS A AND D OINT TP SCH (08:39)
[2016-11-07] MEDS: INSULIN DETEMIR 300 UNIT/3 ML CARTRIDGE SQ SCH ×2 (08:42→21:24)
[2016-11-07] MEDS: INSULIN REGULAR, HUMAN 300 UNIT/3 ML VIAL SQ PRN ×2 (11:50→17:29)
--- NOTE | 2016-11-07 13:30 | NUR ---
SEEN BY DENISE FLULER.
--- NOTE | 2016-11-07 14:53 | NUR ---
Pharmacy Review for upcoming 11/22 IDT Meeting -VS: TEMP 97.6 HR 76 BP 111/66 -LABS: (from 11/06/16) WBC 4.6H/H 8.6/26.2PLT 82 NA 154K 3.9CL 114CO2 33BUN/SCR 27/1.0 BS 145 CA 8.5 -MEDICATION USE REVIEWED: > Pt is not on any anti-psych medication > On Phenobarbital 50mg BID, last level 21 (15-39)(06/26/16); and 23 (06/30) >On Keppra 750mg BID, Calculated CrCl 65.4 ml/min, last level was 43.8 (10-40) (06/16/16), renal function appropriate for dose > Pt insulin regimen: now on levemir 60 units HS, levemir 30 units AM + a custom sliding scale of regular insulin + 8units of regular insulin in addition. BS in October ranged 100-214. > PRN MED USAGE: (October) Tylenol 650mg mild-mod pain none used Tylenol 650mg for temp none used Bergoo 5/325mg for mod-severe pain (6-10) none used Artificial tears none used -NEW ORDERS NOTED: > Patient noted to have nausea, bleeding/erythema on GT site, GI consulted and TF were held on 10/31 for procedure and D5 1/2NS IVF started 10/31, d/c'd 11/01 after TF resumed > Pt's levemir adjusted to 15 units AM and 30 units HS during TF hold from 10/31-11/01. Levemir adjusted back to 30 units AM and 60 units HS on 11/01 after TF restarted. > Mupirocin 2% ointment for GT site abscess given 11/01-11/10 Recommendations > No further recommendations at this time, will continue to monitor Addendum: 11/14/16 at 1321 by ZENAIDA CONNOLLY ADM Update from today 11/14/16 IDT Meeting > Patient reviewed and discussed at length, no acute changes in therapy noted. Will continue to monitor
--- NOTE | 2016-11-07 17:54 | NUR ---
RECEIVED RESIDENT CURRENT VENT SETTINGS OF AC 12,VT 450, PEEP 5 AND FIO2 35%. NO DISTRESS OBSERVED WITH O2 SATURATION OF 98%. SUCTIONED FOR MODERATE AMOUNT OF THICK WHITISH SECRETIONS. CHANGED HUMIDIFIER FILTER.
--- NOTE | 2016-11-07 18:30 | NUR ---
SEEN BY DR. VICK FULLER.
[2016-11-07] MEDS: FISH OIL GT SCH (21:22)
[2016-11-07] MEDS: [UNRECOGNIZED DRUG - OTHER] GT SCH (21:22)
[2016-11-07] MEDS: CALCIUM CARBONATE 500 MG TAB.CHEW GT SCH (21:23)
[2016-11-07 23:05] VITALS: BP 96/60
[2016-11-08] MEDS: BLOOD SUGAR DIAGNOSTIC 1 EACH STRIP VI SCH ×4 (00:40→17:24)
[2016-11-08] MEDS: BACLOFEN 10 MG TABLET GT SCH ×4 (00:41→17:23)
[2016-11-08] MEDS: NUTRISOURCE FIBER 4 GM PACKET GT SCH ×3 (05:21→21:36)
[2016-11-08] MEDS: LEVETIRACETAM 500 MG/5 ML LIQUID UDC GT SCH ×2 (08:33→21:32)
[2016-11-08] MEDS: ACIDOPHILUS/BULGARICUS CHEW TAB GT SCH ×2 (08:33→21:32)
[2016-11-08] MEDS: FUROSEMIDE 40 MG/4 ML GT SCH (08:34)
[2016-11-08] MEDS: PHENOBARBITAL GT SCH ×2 (08:34→21:32)
[2016-11-08] MEDS: MUPIROCIN 2% OINT 22 GM TUBE TP SCH ×3 (08:35→17:23)
[2016-11-08] MEDS: VITAMINS A AND D OINT TP SCH (08:35)
[2016-11-08] MEDS: COD LIVER OIL/ZINC OXIDE OINT 113 GM TUBE TOP SCH ×2 (08:35→21:33)
[2016-11-08] MEDS: HYDROGEN PEROXIDE 3% 118 ML BOTTLE TP SCH ×2 (08:35→21:34)
[2016-11-08] MEDS: POTASSIUM CHLORIDE 20 MEQ TAB.PRT.SR XX SCH ×2 (08:35→17:23)
[2016-11-08] MEDS: FAMOTIDINE 20 MG TABLET GT SCH ×2 (08:39→21:32)
[2016-11-08] MEDS: INSULIN DETEMIR 300 UNIT/3 ML CARTRIDGE SQ SCH ×2 (08:39→21:35)
--- NOTE | 2016-11-08 09:25 | NUR ---
PT RECEIVED ON THE HT-50 VENT WITH THE FOLLOWING SETTINGS THAT CHARTED ON MECHANICAL VENT NOTES. SX A SMALL AMOUNT OF THICK WHITE/YELLOWISH SECRETIONS. TRACH IS PATENT AND SECURED. HME CHANGED. AMBU BAG AND SPARE TRACH IS AT BEDSIDE. VENT IS PLUGGED IN RED OUTLET. VENT ALARMS CHECKED AND THE ARE ON AND LOUD. PT IS TOLERATING VENT SETTINGS WELL WITH NO SIGNS OR SYMPTOMS OF RESPIRATORY DISTRESS NOTED AT THIS TIME. WILL CONTINUE TO MONITOR.
[2016-11-08 10:13] VITALS: BP 103/77
[2016-11-08] MEDS: INSULIN REGULAR, HUMAN 300 UNIT/3 ML VIAL SQ PRN ×2 (11:38→17:25)
[2016-11-08] MEDS: DIABETICSOURCE AC 1000ML LIQUID GT PRN (13:45)
--- NOTE | 2016-11-08 18:10 | NUR ---
SEEN AN EXAMINED BY DR BARNETT WITH NEW ORDERS NOTED AND CARRIED OUT.
[2016-11-08] MEDS: FISH OIL GT SCH (21:32)
[2016-11-08] MEDS: [UNRECOGNIZED DRUG - OTHER] GT SCH (21:32)
[2016-11-08] MEDS: CALCIUM CARBONATE 500 MG TAB.CHEW GT SCH (21:33)
[2016-11-09] MEDS: BLOOD SUGAR DIAGNOSTIC 1 EACH STRIP VI SCH ×4 (00:38→17:46)
[2016-11-09] MEDS: BACLOFEN 10 MG TABLET GT SCH ×4 (00:39→17:44)
--- NOTE | 2016-11-09 01:07 | NUR ---
PT ON CONT HT 50 VENT WITH SHILEY # [address] AND SECURED, WITH SAME CURRENT VENT SETTINGS, PT DOES ASSIST AT TIMES, CHECK CUFF, CHANGE HME, SUCTIONED LIGHT PALE YELL TINGE SECRETIONS, WITH GOOD COUGH EFFORT, NO VENT CHANGES MADE AT THIS TIME, ALL ALARMS OK, AMBU BAG A BEDSIDE, PT STABLE AT THIS TIME,.Andi CHAKRABORTYP Addendum: 11/09/16 at 0109 by ETHEL FERGUSON RT Amended: Links added.
[2016-11-09] MEDS: NUTRISOURCE FIBER 4 GM PACKET GT SCH ×3 (05:40→21:13)
[2016-11-09 08:00] VITALS: BP 122/70
[2016-11-09] MEDS: ACIDOPHILUS/BULGARICUS CHEW TAB GT SCH ×2 (08:03→21:12)
[2016-11-09] MEDS: LEVETIRACETAM 500 MG/5 ML LIQUID UDC GT SCH ×2 (08:03→21:12)
[2016-11-09] MEDS: FUROSEMIDE 40 MG/4 ML GT SCH (08:05)
[2016-11-09] MEDS: PHENOBARBITAL GT SCH ×2 (08:05→21:13)
[2016-11-09] MEDS: INSULIN DETEMIR 300 UNIT/3 ML CARTRIDGE SQ SCH ×2 (08:07→21:12)
[2016-11-09] MEDS: POTASSIUM CHLORIDE 20 MEQ TAB.PRT.SR XX SCH ×2 (08:07→17:44)
[2016-11-09] MEDS: VITAMINS A AND D OINT TP SCH (08:07)
[2016-11-09] MEDS: MUPIROCIN 2% OINT 22 GM TUBE TP SCH ×3 (08:07→17:43)
[2016-11-09] MEDS: COD LIVER OIL/ZINC OXIDE OINT 113 GM TUBE TOP SCH ×2 (08:07→21:13)
[2016-11-09] MEDS: HYDROGEN PEROXIDE 3% 118 ML BOTTLE TP SCH ×2 (08:07→21:13)
[2016-11-09] MEDS: FAMOTIDINE 20 MG TABLET GT SCH ×2 (08:11→21:13)
--- NOTE | 2016-11-09 08:15 | NUR ---
PT RECEIVED ON HT-50 VENT, SETTINGS ARE AC 12, Vt 450, +5, 35% FIO2. NO S\S OF RESPIRATORY DISTRESS NOTED. SHILEY 6 TRACH IS PATENT AND SECURED WITH TIES. SUCTIONED AND LAVAGED SMALL AMOUNTS OF YELLOW THICK SECRETIONS. HME CHANGED, BVM AND BACK UP TRACH AT BEDSIDE. ALARMS ARE ON AND AUDIBLE, WILL CONTINUE TO MONITOR.
[2016-11-09 08:31] LABS: BASOPHILS % (AUTO) 0.5 % (0.0-2.0); EOSINOPHILS # (AUTO) 0.2 K/uL (0.0-0.7); HEMATOCRIT 26.4 % (37-47); HEMOGLOBIN 8.7 G/DL (12.0-16.0); LYMPHOCYTES # (AUTO) 1.7 K/uL (20.0-40.0); MEAN CORPUSCULAR HGB CONC 33 g/dL (32.0-37.0); MEAN CORPUSCULAR VOLUME 100.3 FL (81.0-99.0); MONOCYTES # (AUTO) 0.2 K/uL (2.0-10.0); MONOCYTES % (AUTO) 6.1 % (0.0-11.0); NEUTROPHILS # (AUTO) 1.2 K/uL (1.8-8.9); NEUTROPHILS % (AUTO) 37.4 % (38.5-71.5); PLATELET COUNT (AUTO) 79 K/UL (150-450); RED BLOOD CELL COUNT(AUTO) 2.63 MIL/UL (4.2-5.4); WHITE BLOOD COUNT (AUTO) 3.3 K/UL (4.0-11.2)
[2016-11-09 08:54] LABS: BILIRUBIN,TOTAL 0.3 mg/dL (0.2-1.0); POTASSIUM 3.8 mmol/L (3.5-5.1); TOTAL PROTEIN, SERUM 8.6 g/dL (6.4-8.2)
[2016-11-09 09:50] LABS: BAND % (MANUAL) 5 % (0-10); EOSINOPHILS % (MANUAL) 5 % (0-8); LYMPHOCYTES % (MANUAL) 47 % (20-40); MONOCYTES % (MANUAL) 8 % (2-10); NEUTROPHILS % (MANUAL) 35 % (42-75)
[2016-11-09] MEDS: INSULIN REGULAR, HUMAN 300 UNIT/3 ML VIAL SQ PRN ×2 (11:46→17:46)
[2016-11-09 15:28] LABS: *OCCULT BLOOD STOOL POSITIVE (NEGATIVE)
[2016-11-09 20:00] VITALS: BP 96/49
[2016-11-09] MEDS: CALCIUM CARBONATE 500 MG TAB.CHEW GT SCH (21:13)
[2016-11-09] MEDS: FISH OIL GT SCH (21:14)
[2016-11-09] MEDS: [UNRECOGNIZED DRUG - OTHER] GT SCH (21:14)
--- NOTE | 2016-11-09 21:31 | NUR ---
PT ON CONT HT 50 VENT WITH SHILEY # [address] AND SECURED, WITH CURRENT VENT SETTINGS, PT DOES ASSIST AT TIMES, SUCTIONED LIGHT PALE YELL TINGE SECRETIONS, WITH GOOD COUGH EFFORT, CHANGE HME, AND CHECK CUFF, SUCTIONED LIGHT PALE YELL TINGE SECRETIONS, WITH NO VENT CHANGES MADE AT THIS TIME, ALL ALARMS OK,Mamta FERGUSON RCP Addendum: 11/09/16 at 2132 by ETHEL FERGUSON RT Amended: Links added.
[2016-11-10] MEDS: BLOOD SUGAR DIAGNOSTIC 1 EACH STRIP VI SCH ×4 (00:28→17:16)
[2016-11-10] MEDS: INSULIN REGULAR, HUMAN 300 UNIT/3 ML VIAL SQ PRN ×3 (00:28→17:19)
[2016-11-10] MEDS: BACLOFEN 10 MG TABLET GT SCH ×4 (00:28→17:15)
[2016-11-10] MEDS: NUTRISOURCE FIBER 4 GM PACKET GT SCH ×3 (06:03→21:13)
[2016-11-10 08:00] VITALS: BP 125/54
[2016-11-10] MEDS: LEVETIRACETAM 500 MG/5 ML LIQUID UDC GT SCH ×2 (08:10→21:12)
[2016-11-10] MEDS: ACIDOPHILUS/BULGARICUS CHEW TAB GT SCH ×2 (08:10→21:11)
[2016-11-10] MEDS: FUROSEMIDE 40 MG/4 ML GT SCH (08:11)
[2016-11-10] MEDS: FAMOTIDINE 20 MG TABLET GT SCH ×2 (08:11→21:12)
[2016-11-10] MEDS: PHENOBARBITAL GT SCH ×2 (08:11→21:12)
[2016-11-10] MEDS: POTASSIUM CHLORIDE 20 MEQ TAB.PRT.SR XX SCH ×2 (08:12→17:15)
[2016-11-10] MEDS: HYDROGEN PEROXIDE 3% 118 ML BOTTLE TP SCH ×2 (08:12→21:13)
[2016-11-10] MEDS: VITAMINS A AND D OINT TP SCH (08:12)
[2016-11-10] MEDS: MUPIROCIN 2% OINT 22 GM TUBE TP SCH ×3 (08:12→17:15)
[2016-11-10] MEDS: COD LIVER OIL/ZINC OXIDE OINT 113 GM TUBE TOP SCH ×2 (08:12→21:12)
[2016-11-10] MEDS: INSULIN DETEMIR 300 UNIT/3 ML CARTRIDGE SQ SCH ×2 (08:15→21:13)
--- NOTE | 2016-11-10 08:29 | NUR ---
PT RECEIVED ON HT-50 VENT, SETTINGS ARE AC 12, Vt 450, +5, 35% FIO2. NO S\S OF RESPIRATORY DISTRESS NOTED. SHILEY 6 TRACH IS PATENT AND SECURED WITH TIES. SUCTIONED SMALL AMOUNTS OF YELLOW THICK SECRETIONS. HME CHANGED, BVM AND BACK UP TRACH AT BEDSIDE. ALARMS ARE ON AND AUDIBLE, WILL CONTINUE TO MONITOR.
--- NOTE | 2016-11-10 08:56 | NUR ---
SEEN BY DR.SHELUB FULLER.
--- NOTE | 2016-11-10 14:12 | NUR ---
DENISE Cain WAS INFORMED ABOUT POSITIVE OCCULT BLOOD IN STOOL AND HGB 8.7 AND HCT 26.4 AND NNO.
--- NOTE | 2016-11-10 15:00 | NUR ---
SEEN BY HARSH FULLER.
[2016-11-10] MEDS: DIABETICSOURCE AC 1000ML LIQUID GT PRN (17:16)
[2016-11-10] MEDS: CALCIUM CARBONATE 500 MG TAB.CHEW GT SCH (21:12)
[2016-11-10] MEDS: FISH OIL GT SCH (21:12)
[2016-11-10] MEDS: [UNRECOGNIZED DRUG - OTHER] GT SCH (21:12)
[2016-11-10 23:23] VITALS: BP 116/63
[2016-11-11] MEDS: BLOOD SUGAR DIAGNOSTIC 1 EACH STRIP VI SCH ×4 (00:54→17:38)
[2016-11-11] MEDS: BACLOFEN 10 MG TABLET GT SCH ×5 (00:54→23:05)
[2016-11-11] MEDS: INSULIN REGULAR, HUMAN 300 UNIT/3 ML VIAL SQ PRN ×3 (00:55→17:41)
[2016-11-11] MEDS: NUTRISOURCE FIBER 4 GM PACKET GT SCH ×3 (05:53→21:12)
[2016-11-11 08:02] VITALS: BP 123/62
[2016-11-11] MEDS: LEVETIRACETAM 500 MG/5 ML LIQUID UDC GT SCH ×2 (08:42→21:11)
[2016-11-11] MEDS: ACIDOPHILUS/BULGARICUS CHEW TAB GT SCH ×2 (08:42→21:11)
[2016-11-11] MEDS: PHENOBARBITAL GT SCH ×2 (08:42→21:12)
[2016-11-11] MEDS: FAMOTIDINE 20 MG TABLET GT SCH ×2 (08:42→21:12)
[2016-11-11] MEDS: FUROSEMIDE 40 MG/4 ML GT SCH (08:42)
[2016-11-11] MEDS: VITAMINS A AND D OINT TP SCH (08:43)
[2016-11-11] MEDS: HYDROGEN PEROXIDE 3% 118 ML BOTTLE TP SCH ×2 (08:43→21:12)
[2016-11-11] MEDS: COD LIVER OIL/ZINC OXIDE OINT 113 GM TUBE TOP SCH ×2 (08:43→21:12)
[2016-11-11] MEDS: DIABETICSOURCE AC 1000ML LIQUID GT PRN ×2 (08:43→23:05)
[2016-11-11] MEDS: POTASSIUM CHLORIDE 20 MEQ TAB.PRT.SR XX SCH ×2 (08:43→17:10)
[2016-11-11] MEDS: INSULIN DETEMIR 300 UNIT/3 ML CARTRIDGE SQ SCH ×2 (08:46→21:10)
[2016-11-11] MEDS: [UNRECOGNIZED DRUG - OTHER] GT SCH (21:12)
[2016-11-11] MEDS: FISH OIL GT SCH (21:12)
[2016-11-11] MEDS: CALCIUM CARBONATE 500 MG TAB.CHEW GT SCH (21:12)
[2016-11-11 23:07] VITALS: BP 117/68
[2016-11-12] MEDS: BLOOD SUGAR DIAGNOSTIC 1 EACH STRIP VI SCH ×5 (00:40→23:41)
[2016-11-12] MEDS: INSULIN REGULAR, HUMAN 300 UNIT/3 ML VIAL SQ PRN ×3 (00:44→17:46)
[2016-11-12] MEDS: NUTRISOURCE FIBER 4 GM PACKET GT SCH ×3 (05:08→21:00)
[2016-11-12] MEDS: BACLOFEN 10 MG TABLET GT SCH ×3 (05:08→17:42)
[2016-11-12 08:00] VITALS: BP 106/60
[2016-11-12] MEDS: INSULIN DETEMIR 300 UNIT/3 ML CARTRIDGE SQ SCH ×2 (08:48→20:17)
[2016-11-12] MEDS: ACIDOPHILUS/BULGARICUS CHEW TAB GT SCH ×2 (08:48→20:14)
[2016-11-12] MEDS: LEVETIRACETAM 500 MG/5 ML LIQUID UDC GT SCH ×2 (08:48→20:14)
[2016-11-12] MEDS: PHENOBARBITAL GT SCH ×2 (08:49→20:14)
[2016-11-12] MEDS: FUROSEMIDE 40 MG/4 ML GT SCH (08:49)
[2016-11-12] MEDS: FAMOTIDINE 20 MG TABLET GT SCH ×2 (08:49→20:14)
[2016-11-12] MEDS: HYDROGEN PEROXIDE 3% 118 ML BOTTLE TP SCH ×2 (08:50→20:14)
[2016-11-12] MEDS: POTASSIUM CHLORIDE 20 MEQ TAB.PRT.SR XX SCH ×2 (08:50→17:42)
[2016-11-12] MEDS: COD LIVER OIL/ZINC OXIDE OINT 113 GM TUBE TOP SCH ×2 (08:50→20:14)
[2016-11-12] MEDS: VITAMINS A AND D OINT TP SCH (08:50)
[2016-11-12] MEDS: [UNRECOGNIZED DRUG - OTHER] GT SCH (20:14)
[2016-11-12] MEDS: FISH OIL GT SCH (20:14)
[2016-11-12] MEDS: CALCIUM CARBONATE 500 MG TAB.CHEW GT SCH (20:14)
[2016-11-12 23:24] VITALS: BP 114/65
[2016-11-13] MEDS: INSULIN REGULAR, HUMAN 300 UNIT/3 ML VIAL SQ PRN ×4 (00:36→18:19)
[2016-11-13] MEDS: BACLOFEN 10 MG TABLET GT SCH ×4 (00:44→18:13)
[2016-11-13] MEDS: NUTRISOURCE FIBER 4 GM PACKET GT SCH ×3 (05:02→22:22)
[2016-11-13] MEDS: BLOOD SUGAR DIAGNOSTIC 1 EACH STRIP VI SCH ×3 (05:02→18:18)
[2016-11-13 08:39] LABS: CREATININE 0.9 mg/dL (0.6-1.3); POTASSIUM 3.6 mmol/L (3.5-5.1)
[2016-11-13 08:40] LABS: BASOPHILS % (AUTO) 0.7 % (0.0-2.0); EOSINOPHILS # (AUTO) 0.2 K/uL (0.0-0.7); EOSINOPHILS % (AUTO) 5.9 % (0.0-7.0); HEMATOCRIT 31.2 % (37-47); HEMOGLOBIN 10.1 G/DL (12.0-16.0); LYMPHOCYTES % (AUTO) 46.4 % (20.5-51.5); MEAN CORPUSCULAR HEMOGLOBIN 31.9 UUG (27.0-31.0); MEAN CORPUSCULAR HGB CONC 32 g/dL (32.0-37.0); MEAN CORPUSCULAR VOLUME 98.9 FL (81.0-99.0); MONOCYTES # (AUTO) 0.3 K/uL (2.0-10.0); MONOCYTES % (AUTO) 7.3 % (0.0-11.0); NEUTROPHILS # (AUTO) 1.7 K/uL (1.8-8.9); NEUTROPHILS % (AUTO) 39.7 % (38.5-71.5); PLATELET COUNT (AUTO) 120 K/UL (150-450)
[2016-11-13 08:44] LABS: RED BLOOD CELL COUNT(AUTO) 3.16 MIL/UL (4.2-5.4); WHITE BLOOD COUNT (AUTO) 4.2 K/UL (4.0-11.2)
[2016-11-13] MEDS: ACIDOPHILUS/BULGARICUS CHEW TAB GT SCH ×2 (09:28→20:51)
[2016-11-13] MEDS: LEVETIRACETAM 500 MG/5 ML LIQUID UDC GT SCH ×2 (09:28→20:51)
[2016-11-13] MEDS: FAMOTIDINE 20 MG TABLET GT SCH ×2 (09:29→20:52)
[2016-11-13] MEDS: FUROSEMIDE 40 MG/4 ML GT SCH (09:29)
[2016-11-13] MEDS: PHENOBARBITAL GT SCH ×2 (09:29→20:52)
[2016-11-13] MEDS: HYDROGEN PEROXIDE 3% 118 ML BOTTLE TP SCH ×2 (09:31→20:53)
[2016-11-13] MEDS: INSULIN DETEMIR 300 UNIT/3 ML CARTRIDGE SQ SCH ×2 (09:31→20:59)
[2016-11-13] MEDS: POTASSIUM CHLORIDE 20 MEQ TAB.PRT.SR XX SCH ×2 (09:31→18:00)
[2016-11-13] MEDS: COD LIVER OIL/ZINC OXIDE OINT 113 GM TUBE TOP SCH ×2 (09:31→20:53)
[2016-11-13] MEDS: VITAMINS A AND D OINT TP SCH (09:31)
[2016-11-13 11:50] VITALS: BP 100/48
--- NOTE | 2016-11-13 13:00 | NUR ---
SEEN BY HARSH FULLER.
--- NOTE | 2016-11-13 14:30 | NUR ---
SEEN BY DENISE COLLAZO,AWARE OF NA RESULT STILL ELEVATED DESPITE THE WATER FLUSHES HAS BEEN INCREASED.WITH NEW ORDERS FOR MEDICAL AIDE,WILL FOLLOW UP.
[2016-11-13] MEDS: CALCIUM CARBONATE 500 MG TAB.CHEW GT SCH (20:52)
[2016-11-13] MEDS: [UNRECOGNIZED DRUG - OTHER] GT SCH (20:52)
[2016-11-13] MEDS: FISH OIL GT SCH (20:52)
[2016-11-14] VITALS: BP 116/66
[2016-11-14] MEDS: BACLOFEN 10 MG TABLET GT SCH ×5 (00:37→23:55)
[2016-11-14] MEDS: BLOOD SUGAR DIAGNOSTIC 1 EACH STRIP VI SCH ×5 (00:39→23:57)
[2016-11-14] MEDS: INSULIN REGULAR, HUMAN 300 UNIT/3 ML VIAL SQ PRN ×4 (00:42→17:36)
[2016-11-14] MEDS: NUTRISOURCE FIBER 4 GM PACKET GT SCH ×3 (05:04→21:18)
[2016-11-14] MEDS: LEVETIRACETAM 500 MG/5 ML LIQUID UDC GT SCH ×2 (08:03→21:17)
[2016-11-14] MEDS: ACIDOPHILUS/BULGARICUS CHEW TAB GT SCH ×2 (08:03→21:17)
[2016-11-14] MEDS: FUROSEMIDE 40 MG/4 ML GT SCH (08:05)
[2016-11-14] MEDS: INSULIN DETEMIR 300 UNIT/3 ML CARTRIDGE SQ SCH ×2 (08:06→21:00)
[2016-11-14] MEDS: FAMOTIDINE 20 MG TABLET GT SCH ×2 (08:07→21:18)
[2016-11-14] MEDS: VITAMINS A AND D OINT TP SCH (08:07)
[2016-11-14] MEDS: PHENOBARBITAL GT SCH ×2 (08:07→21:18)
[2016-11-14] MEDS: HYDROGEN PEROXIDE 3% 118 ML BOTTLE TP SCH ×2 (08:07→21:18)
[2016-11-14] MEDS: POTASSIUM CHLORIDE 20 MEQ TAB.PRT.SR XX SCH ×2 (08:07→17:28)
[2016-11-14] MEDS: COD LIVER OIL/ZINC OXIDE OINT 113 GM TUBE TOP SCH ×2 (08:07→21:18)
--- NOTE | 2016-11-14 08:46 | NUR ---
PT RECEIVED ON HT-50 VENT, SETTINGS ARE AC 12, Vt 450, +5, 35% FIO2. NO S\S OF RESPIRATORY DISTRESS NOTED. SHILEY 6 TRACH IS PATENT AND SECURED WITH TIES. NO SOB NOTED AT THIS TIME. SUCTIONED AND LAVAGED SMALL AMOUNTS OF YELLOW THICK SECRETIONS. HME CHANGED, BVM AND BACK UP TRACH AT BEDSIDE. ALARMS ARE ON AND AUDIBLE, WILL CONTINUE TO MONITOR.
[2016-11-14 09:19] VITALS: BP 91/52
--- NOTE | 2016-11-14 12:00 | NUR ---
message left for dr. colbert for consultation.
--- NOTE | 2016-11-14 14:48 | NUR ---
SEEN BY DENISE FULLER.
--- NOTE | 2016-11-14 15:24 | NUR ---
INTERDISCIPLINARY PLAN OF CARE CONFERENCE was held today. Patient's family was invited to the meeting, but they were unable to attend. Dr. Gilbert and the Interdisciplinary Team reviewed the current plan of care in detail. RN provided updates on the patient's current medical condition and recent tests, and reported that a nephrology consult has been ordered (RN to follow-up with scheduling). See RN IDT conference notes for details. No major changes were reported at this time. See also all other disciplines IDT notes and physician's progress notes for additional details.
[2016-11-14 20:00] VITALS: BP 106/68
[2016-11-14] MEDS: [UNRECOGNIZED DRUG - OTHER] GT SCH (21:18)
[2016-11-14] MEDS: FISH OIL GT SCH (21:18)
[2016-11-14] MEDS: CALCIUM CARBONATE 500 MG TAB.CHEW GT SCH (21:18)
--- NOTE | 2016-11-14 22:19 | NUR ---
PT ON CONT HT 50 VENT WITH SHILEY # [address] AND SECURED, WITH SAME CURRENT VENT SETTINGS, WITH GOOD COUGH EFFORT, CHANGE HME AND CHECK CUFF, SUCTIONED LIGHT PALE YELL TINGE SECRETIONS, WITH NO SIGNS OF RESP. DISTRESS, ALL ALARMS OK, AMBU BAG AT BEDSIDE.Andi CHAKRABORTYP Addendum: 11/14/16 at 2221 by ETHEL FERGUSON RT Amended: Links added.
[2016-11-15] MEDS: INSULIN REGULAR, HUMAN 300 UNIT/3 ML VIAL SQ PRN ×4 (00:04→17:45)
[2016-11-15] MEDS: BACLOFEN 10 MG TABLET GT SCH ×3 (05:18→17:34)
[2016-11-15] MEDS: NUTRISOURCE FIBER 4 GM PACKET GT SCH ×3 (05:18→21:24)
[2016-11-15] MEDS: BLOOD SUGAR DIAGNOSTIC 1 EACH STRIP VI SCH ×3 (05:19→17:44)
[2016-11-15 08:05] VITALS: BP 100/66
[2016-11-15] MEDS: PHENOBARBITAL GT SCH ×2 (08:47→21:21)
[2016-11-15] MEDS: FAMOTIDINE 20 MG TABLET GT SCH ×2 (08:47→21:21)
[2016-11-15] MEDS: LEVETIRACETAM 500 MG/5 ML LIQUID UDC GT SCH ×2 (08:47→21:17)
[2016-11-15] MEDS: HYDROGEN PEROXIDE 3% 118 ML BOTTLE TP SCH ×2 (08:47→21:23)
[2016-11-15] MEDS: ACIDOPHILUS/BULGARICUS CHEW TAB GT SCH ×2 (08:47→21:16)
[2016-11-15] MEDS: COD LIVER OIL/ZINC OXIDE OINT 113 GM TUBE TOP SCH ×2 (08:47→21:23)
[2016-11-15] MEDS: VITAMINS A AND D OINT TP SCH (08:47)
[2016-11-15] MEDS: POTASSIUM CHLORIDE 20 MEQ TAB.PRT.SR XX SCH ×2 (08:47→17:34)
[2016-11-15] MEDS: FUROSEMIDE 40 MG/4 ML GT SCH (08:47)
[2016-11-15] MEDS: INSULIN DETEMIR 300 UNIT/3 ML CARTRIDGE SQ SCH ×2 (08:49→21:24)
--- NOTE | 2016-11-15 15:32 | NUR ---
DR. GALEAS WAS CALLED AND STATED THAT HE WILL SEE PT. TOMORROW FOR CONSULTATION.
--- NOTE | 2016-11-15 17:53 | NUR ---
SEEN BY DR. HICKMAN NEW ORDERS CARRIED OUT.SEEN BY DR. BARNETT AND NEW ORDERS CARRIED OUT.
--- NOTE | 2016-11-15 19:45 | NUR ---
Received pt on HT-50 ventilator. Current vent settings are AC 12, VT 450, PEEP +5, FIO2 35%. Vent check done; alarms checked and are functioning properly. Pt appears to be comfortable on settings. No changes made at this time. Pt is trached with Sh. 6 DCT trach. Trach is patent and secured with foam ties. Suctioned moderate amount of thick, yellowish secretions. HME changed. Cuff pressure checked and is inflated. Ambu bag and back up trach are at bedside. Pt showing no s/s of respiratory distress at this time. Will continue to monitor pt throughout shift.
[2016-11-15 20:00] VITALS: BP 96/56
[2016-11-15] MEDS: FISH OIL GT SCH (21:21)
[2016-11-15] MEDS: [UNRECOGNIZED DRUG - OTHER] GT SCH (21:21)
[2016-11-15] MEDS: CALCIUM CARBONATE 500 MG TAB.CHEW GT SCH (21:22)
[2016-11-16] MEDS: BLOOD SUGAR DIAGNOSTIC 1 EACH STRIP VI SCH ×5 (00:40→23:09)
[2016-11-16] MEDS: BACLOFEN 10 MG TABLET GT SCH ×5 (00:40→23:08)
[2016-11-16] MEDS: INSULIN REGULAR, HUMAN 300 UNIT/3 ML VIAL SQ PRN ×5 (00:46→23:11)
[2016-11-16] MEDS: NUTRISOURCE FIBER 4 GM PACKET GT SCH ×3 (05:59→21:34)
[2016-11-16 08:01] VITALS: BP 98/51
[2016-11-16] MEDS: PHENOBARBITAL GT SCH ×2 (08:30→21:32)
[2016-11-16] MEDS: FAMOTIDINE 20 MG TABLET GT SCH ×2 (08:30→21:33)
[2016-11-16] MEDS: ACIDOPHILUS/BULGARICUS CHEW TAB GT SCH ×2 (08:30→21:32)
[2016-11-16] MEDS: FUROSEMIDE 40 MG/4 ML GT SCH (08:30)
[2016-11-16] MEDS: LEVETIRACETAM 500 MG/5 ML LIQUID UDC GT SCH ×2 (08:30→21:32)
[2016-11-16] MEDS: VITAMINS A AND D OINT TP SCH (08:31)
[2016-11-16] MEDS: INSULIN DETEMIR 300 UNIT/3 ML CARTRIDGE SQ SCH ×2 (08:31→21:34)
[2016-11-16] MEDS: POTASSIUM CHLORIDE 20 MEQ TAB.PRT.SR XX SCH ×2 (08:31→17:52)
[2016-11-16] MEDS: COD LIVER OIL/ZINC OXIDE OINT 113 GM TUBE TOP SCH ×2 (08:31→21:34)
[2016-11-16] MEDS: HYDROGEN PEROXIDE 3% 118 ML BOTTLE TP SCH ×2 (08:31→21:34)
--- NOTE | 2016-11-16 10:30 | NUR ---
Seen by Dr. Seth, with new orders carried out, bmp, mag, phos in am, urine Na and osmolality collected.
--- NOTE | 2016-11-16 20:04 | NUR ---
Pt received on HT-50 vent with the following settings of AC-12, Vt-450, PEEP+5, FIO2-35%, trached with Shiley#6 DCT trach, which is in the place and secure. No sob noted. Airway care done, pt responded to physical stimuli. Resus. bag and back up trach at bedside. Vent and alarms checked and reset.
[2016-11-16] MEDS: [UNRECOGNIZED DRUG - OTHER] GT SCH (21:32)
[2016-11-16] MEDS: FISH OIL GT SCH (21:32)
[2016-11-16] MEDS: CALCIUM CARBONATE 500 MG TAB.CHEW GT SCH (21:33)
[2016-11-16 22:13] VITALS: BP 102/53
[2016-11-17] MEDS: BACLOFEN 10 MG TABLET GT SCH ×3 (05:29→16:58)
[2016-11-17] MEDS: NUTRISOURCE FIBER 4 GM PACKET GT SCH ×3 (05:29→21:29)
[2016-11-17] MEDS: BLOOD SUGAR DIAGNOSTIC 1 EACH STRIP VI SCH ×3 (05:29→17:12)
[2016-11-17] MEDS: INSULIN REGULAR, HUMAN 300 UNIT/3 ML VIAL SQ PRN ×2 (05:30→17:17)
[2016-11-17 08:00] VITALS: BP 99/55
[2016-11-17 08:18] LABS: CREATININE 1.1 mg/dL (0.6-1.3); MAGNESIUM 2.8 mg/dL (1.8-2.4); PHOSPHOROUS 2.7 mg/dL (2.5-4.9); POTASSIUM 3.5 mmol/L (3.5-5.1)
[2016-11-17] MEDS: ACIDOPHILUS/BULGARICUS CHEW TAB GT SCH ×2 (09:41→21:21)
[2016-11-17] MEDS: LEVETIRACETAM 500 MG/5 ML LIQUID UDC GT SCH ×2 (09:42→21:21)
[2016-11-17] MEDS: FAMOTIDINE 20 MG TABLET GT SCH ×2 (09:43→21:20)
[2016-11-17] MEDS: FUROSEMIDE 40 MG/4 ML GT SCH (09:43)
[2016-11-17] MEDS: VITAMINS A AND D OINT TP SCH (09:45)
[2016-11-17] MEDS: HYDROGEN PEROXIDE 3% 118 ML BOTTLE TP SCH ×2 (09:45→21:28)
[2016-11-17] MEDS: COD LIVER OIL/ZINC OXIDE OINT 113 GM TUBE TOP SCH ×2 (09:45→21:28)
[2016-11-17] MEDS: POTASSIUM CHLORIDE 20 MEQ TAB.PRT.SR XX SCH ×2 (09:46→16:58)
[2016-11-17] MEDS: PHENOBARBITAL GT SCH ×2 (09:54→21:20)
[2016-11-17] MEDS: INSULIN DETEMIR 300 UNIT/3 ML CARTRIDGE SQ SCH ×2 (09:59→21:29)
--- NOTE | 2016-11-17 11:52 | NUR ---
Noted redness on right shoulder, warm to touch, no pain or discomfort noted when rom are given, Dr. Jorgensen notified, will continue monitoring.
[2016-11-17] MEDS: DIABETICSOURCE AC 1000ML LIQUID GT PRN (17:00)
[2016-11-17 20:34] VITALS: BP 100/52
[2016-11-17] MEDS: FISH OIL GT SCH (21:21)
[2016-11-17] MEDS: [UNRECOGNIZED DRUG - OTHER] GT SCH (21:21)
[2016-11-17] MEDS: CALCIUM CARBONATE 500 MG TAB.CHEW GT SCH (21:21)
[2016-11-18] MEDS: BACLOFEN 10 MG TABLET GT SCH ×4 (00:36→17:13)
[2016-11-18] MEDS: BLOOD SUGAR DIAGNOSTIC 1 EACH STRIP VI SCH ×4 (00:39→17:13)
[2016-11-18] MEDS: INSULIN REGULAR, HUMAN 300 UNIT/3 ML VIAL SQ PRN ×3 (00:44→17:40)
--- NOTE | 2016-11-18 00:48 | NUR ---
PT ON CONT HT 50 VENT WITH SHILEY # [address] AND SECURED, WITH SAME CURRENT VENT SETTINGS, PT DOES ASSIST AT TIMES, CHECK CUFF, CHANGE HME, SUCTIONED LIGHT PALE YELL TINGE SECRETIONS, WITH GOOD COUGH EFFORT, NO VENT CHANGES MADE AT THIS TIME, ALL ALARMS OK, AMBU BAG AT BEDSIDE, NO SIGNS OF RESP. DISTRESS NOTED. Andi CHAKRABORTYP Addendum: 11/18/16 at 0051 by ETHEL FERGUSON RT Amended: Links added.
[2016-11-18] MEDS: NUTRISOURCE FIBER 4 GM PACKET GT SCH ×3 (05:10→21:15)
--- NOTE | 2016-11-18 06:41 | NUR ---
Still with redness on Right shoulder, warm to touch, skin is intact, afebrile, no signs of any discomfort when touched, good skin care done , will continue monitor.
--- NOTE | 2016-11-18 07:45 | NUR ---
Pt received on Continuous mechanical ventilation via trach. Pt is in semi diaz position and has limited response to verbal stimuli. Pt is on [place] HT-50 vent with settings of A/C-12, VT-450, PEEP +5, FIO2-35%. Trach is a Shiley 6 DCT. Trach is patent and secure. No irritation or redness noted around stoma or trach tie. Tolerating vent settings well. SpO2-100%. HME changed. PPE used. Vent alarm parameters checked, on and audible. Vent plugged into red emergency outlet. Bag/valve/mask and back up trach bedside. Will continue to monitor.
[2016-11-18 08:00] VITALS: BP 112/62
[2016-11-18] MEDS: ACIDOPHILUS/BULGARICUS CHEW TAB GT SCH ×2 (09:54→21:14)
[2016-11-18] MEDS: POTASSIUM CHLORIDE 20 MEQ TAB.PRT.SR XX SCH ×2 (09:55→17:13)
[2016-11-18] MEDS: HYDROGEN PEROXIDE 3% 118 ML BOTTLE TP SCH ×2 (09:55→21:15)
[2016-11-18] MEDS: VITAMINS A AND D OINT TP SCH (09:55)
[2016-11-18] MEDS: FUROSEMIDE 40 MG/4 ML GT SCH (09:55)
[2016-11-18] MEDS: LEVETIRACETAM 500 MG/5 ML LIQUID UDC GT SCH ×2 (09:55→21:14)
[2016-11-18] MEDS: FAMOTIDINE 20 MG TABLET GT SCH ×2 (09:55→21:15)
[2016-11-18] MEDS: COD LIVER OIL/ZINC OXIDE OINT 113 GM TUBE TOP SCH ×2 (09:55→21:15)
[2016-11-18] MEDS: PHENOBARBITAL GT SCH ×2 (09:55→21:15)
[2016-11-18] MEDS: INSULIN DETEMIR 300 UNIT/3 ML CARTRIDGE SQ SCH ×2 (10:05→21:20)
[2016-11-18] MEDS: FISH OIL GT SCH (21:14)
[2016-11-18] MEDS: [UNRECOGNIZED DRUG - OTHER] GT SCH (21:14)
[2016-11-18] MEDS: CALCIUM CARBONATE 500 MG TAB.CHEW GT SCH (21:15)
[2016-11-18 22:03] VITALS: BP 105/57
[2016-11-19] MEDS: BLOOD SUGAR DIAGNOSTIC 1 EACH STRIP VI SCH ×4 (00:39→17:19)
[2016-11-19] MEDS: INSULIN REGULAR, HUMAN 300 UNIT/3 ML VIAL SQ PRN ×4 (00:39→17:23)
[2016-11-19] MEDS: BACLOFEN 10 MG TABLET GT SCH ×4 (00:39→17:19)
--- NOTE | 2016-11-19 01:11 | NUR ---
PT ON CONT HT 50 VENT WITH SHILEY # [address] AND SECURED, WITH SAME CURRENT VENT SETTINGS, PT DOES ASSIST AT TIMES ,CHECK CUFF, CHANGE HME AND PASCUAL, SUCTIONED LIGHT PALE YELL. TINGE SECRETIONS, GOOD COUGH EFFORT, ALL ALARMS OK, AMBU BAG AT BEDSIDE, NO VENT CHANGES MADE AT THIS TIME, PT STABLE. NO SIGNS OF RESP. DISTRESS NOTED. Andi CHAKRABORTYP Addendum: 11/19/16 at 0114 by ETHEL FERGUSON RT Amended: Links added.
[2016-11-19] MEDS: NUTRISOURCE FIBER 4 GM PACKET GT SCH ×3 (05:39→21:06)
--- NOTE | 2016-11-19 06:19 | NUR ---
Still with redness on right shoulder extending to arm, skin intact and warm to touch, no signs of pain when touch, good skin care done, handled very gently, will continue monitor and will endorse to let MD know. Temperature is 97.8, Kept clean and comfortable.
[2016-11-19 08:00] VITALS: BP 120/64
[2016-11-19] MEDS: INSULIN DETEMIR 300 UNIT/3 ML CARTRIDGE SQ SCH ×2 (09:18→21:04)
[2016-11-19] MEDS: LEVETIRACETAM 500 MG/5 ML LIQUID UDC GT SCH ×2 (09:25→20:59)
[2016-11-19] MEDS: ACIDOPHILUS/BULGARICUS CHEW TAB GT SCH ×2 (09:25→20:56)
[2016-11-19] MEDS: FUROSEMIDE 40 MG/4 ML GT SCH (09:25)
[2016-11-19] MEDS: COD LIVER OIL/ZINC OXIDE OINT 113 GM TUBE TOP SCH ×2 (09:26→20:57)
[2016-11-19] MEDS: VITAMINS A AND D OINT TP SCH (09:26)
[2016-11-19] MEDS: PHENOBARBITAL GT SCH ×2 (09:26→21:00)
[2016-11-19] MEDS: FAMOTIDINE 20 MG TABLET GT SCH ×2 (09:26→20:57)
[2016-11-19] MEDS: POTASSIUM CHLORIDE 20 MEQ TAB.PRT.SR XX SCH ×2 (09:26→17:19)
[2016-11-19] MEDS: HYDROGEN PEROXIDE 3% 118 ML BOTTLE TP SCH ×2 (09:26→20:57)
--- NOTE | 2016-11-19 10:00 | NUR ---
SEEN AND EXAMINED BY DYLAN COLLAZO,AWARE PT RASHES ON R SHOULDER AND R CHEST IS SPREADING WITH NEW ORDERS NOTED FOR SERVICE STATION ATTENDANT CONSULT. RASHES SITE WAS MARKED TO SEE THE PROGRESS DAILY.
[2016-11-19] MEDS: DIABETICSOURCE AC 1000ML LIQUID GT PRN (18:02)
--- NOTE | 2016-11-19 20:14 | NUR ---
Pt received on HT-50 vent with the following settings of AC-12, Vt-450, PEEP+5, FIO2-35%, trached with Shiley#6 DCT trach, which is in the place and secure. No respiratory distress noted. Airway care done, pt responded to physical stimuli. HME changed. Resus. bag and back up trach at bedside. Vent and alarms on and audible.
[2016-11-19] MEDS: CALCIUM CARBONATE 500 MG TAB.CHEW GT SCH (20:57)
[2016-11-19] MEDS: [UNRECOGNIZED DRUG - OTHER] GT SCH (21:03)
[2016-11-19] MEDS: FISH OIL GT SCH (21:03)
[2016-11-19 22:54] VITALS: BP 108/60
[2016-11-20] MEDS: BACLOFEN 10 MG TABLET GT SCH ×4 (00:40→17:52)
[2016-11-20] MEDS: BLOOD SUGAR DIAGNOSTIC 1 EACH STRIP VI SCH ×4 (00:40→17:58)
[2016-11-20] MEDS: INSULIN REGULAR, HUMAN 300 UNIT/3 ML VIAL SQ PRN ×4 (00:45→17:59)
[2016-11-20] MEDS: NUTRISOURCE FIBER 4 GM PACKET GT SCH ×3 (05:22→21:23)
[2016-11-20 08:00] VITALS: BP 110/59
--- NOTE | 2016-11-20 08:00 | NUR ---
RECEIVED ON CONTINUOUS VENT AC 12 VT 450 PEEP 5 FIO2 35%. TRACH IN PLACE AND SECURED. BACK UP TRACH AND BAG VALVE MASK AT BEDSIDE. SUCTION SMALL AMOUNT THICK PALE YELLOW SECRETIONS. VENT CIRCUIT CHANGED WITHOUT COMPLICATIONS NOTED. VENT CHECKED, ALARMS WORKING WELL AND AUDIBLE. NO DISTRESS NOTED AT THIS TIME. WILL CONTINUE TO MONITOR.
[2016-11-20] MEDS: FUROSEMIDE 40 MG/4 ML GT SCH (09:30)
[2016-11-20] MEDS: FAMOTIDINE 20 MG TABLET GT SCH ×2 (09:30→20:00)
[2016-11-20] MEDS: LEVETIRACETAM 500 MG/5 ML LIQUID UDC GT SCH ×2 (09:30→20:03)
[2016-11-20] MEDS: PHENOBARBITAL GT SCH ×2 (09:30→20:00)
[2016-11-20] MEDS: ACIDOPHILUS/BULGARICUS CHEW TAB GT SCH ×2 (09:30→20:00)
[2016-11-20] MEDS: HYDROGEN PEROXIDE 3% 118 ML BOTTLE TP SCH ×2 (09:31→20:02)
[2016-11-20] MEDS: VITAMINS A AND D OINT TP SCH (09:31)
[2016-11-20] MEDS: COD LIVER OIL/ZINC OXIDE OINT 113 GM TUBE TOP SCH ×2 (09:31→20:02)
[2016-11-20] MEDS: POTASSIUM CHLORIDE 20 MEQ TAB.PRT.SR XX SCH ×2 (09:31→17:52)
[2016-11-20] MEDS: INSULIN DETEMIR 300 UNIT/3 ML CARTRIDGE SQ SCH ×2 (09:31→20:05)
--- NOTE | 2016-11-20 10:48 | NUR ---
Dermatology consult approved by rn unit manager (Josette), order faxed to Dr. Poole office, spoke with Sweta from Md office and stated that fax for dermatology consult was received and will notified Dr. Poole.
[2016-11-20] MEDS: DIABETICSOURCE AC 1000ML LIQUID GT PRN (18:32)
[2016-11-20] MEDS: [UNRECOGNIZED DRUG - OTHER] GT SCH (20:00)
[2016-11-20] MEDS: CALCIUM CARBONATE 500 MG TAB.CHEW GT SCH (20:00)
[2016-11-20] MEDS: FISH OIL GT SCH (20:00)
--- NOTE | 2016-11-20 20:09 | NUR ---
Received pt on HT-50 vent with the following settings of AC-12, Vt-450, PEEP+5, FIO2-35%, trached with Shiley#6 DCT trach, which is in the place and secure. No respiratory distress noted. Airway care done, pt responded to physical stimuli. HME changed. Resus. bag and back up trach at bedside. Vent and alarms checked and reset.
[2016-11-20 21:10] VITALS: BP 116/80
[2016-11-21] MEDS: BACLOFEN 10 MG TABLET GT SCH ×5 (00:10→23:28)
[2016-11-21] MEDS: BLOOD SUGAR DIAGNOSTIC 1 EACH STRIP VI SCH ×6 (00:11→23:35)
[2016-11-21] MEDS: INSULIN REGULAR, HUMAN 300 UNIT/3 ML VIAL SQ PRN ×3 (00:17→12:54)
[2016-11-21] MEDS: NUTRISOURCE FIBER 4 GM PACKET GT SCH ×3 (05:12→21:00)
[2016-11-21 08:00] VITALS: BP 128/62
[2016-11-21 08:16] LABS: EOSINOPHILS # (AUTO) 0.2 K/uL (0.0-0.7); LYMPHOCYTES # (AUTO) 1.5 K/UL (0.8-4.8); MONOCYTES # (AUTO) 0.3 K/UL (0.1-1.30)
[2016-11-21 08:19] LABS: BASOPHILS % (AUTO) 0.5 % (0.0-2.0); EOSINOPHILS % (AUTO) 4.7 % (0.0-7.0); HEMATOCRIT 24.9 % (37-47); HEMOGLOBIN 8.4 G/DL (12.0-16.0); LYMPHOCYTES % (AUTO) 33.9 % (20.5-51.5); MEAN CORPUSCULAR HEMOGLOBIN 33.2 UUG (27.0-31.0); MEAN CORPUSCULAR HGB CONC 34 g/dL (32.0-37.0); MEAN CORPUSCULAR VOLUME 97.7 FL (81.0-99.0); MONOCYTES % (AUTO) 6.5 % (0.0-11.0); NEUTROPHILS # (AUTO) 2.4 K/UL (1.8-8.9); NEUTROPHILS % (AUTO) 54.4 % (38.5-71.5); PLATELET COUNT (AUTO) 91 K/UL (150-450); RED BLOOD CELL COUNT(AUTO) 2.55 MIL/UL (4.2-5.4); WHITE BLOOD COUNT (AUTO) 4.4 K/UL (4.0-11.2)
[2016-11-21 08:23] LABS: BILIRUBIN,TOTAL 0.3 mg/dL (0.2-1.0); CREATININE 0.9 mg/dL (0.6-1.3); MAGNESIUM 2.5 mg/dL (1.8-2.4); PHOSPHOROUS 2.3 mg/dL (2.5-4.9); POTASSIUM 4.4 mmol/L (3.5-5.1); TOTAL PROTEIN, SERUM 8.6 g/dL (6.4-8.2)
[2016-11-21 08:49] LABS: BAND % (MANUAL) 7 % (0-10); EOSINOPHILS % (MANUAL) 6 % (0-8); LYMPHOCYTES % (MANUAL) 42 % (20-40); MONOCYTES % (MANUAL) 6 % (2-10); NEUTROPHILS % (MANUAL) 39 % (42-75)
--- NOTE | 2016-11-21 09:44 | NUR ---
REMAIN ON CURRENT CURRENT VENT SETTINGS OF AC 12,VT 450, PEEP 5 AND FIO2 35%. AWAKE AND RESPONSIVE WITH NO DISTRESS OBSERVED SHOWING O2 SATURATION OF 98%. SUCTIONED FOR MODERATE AMOUNT OF THICK WHITISH SECRETIONS. CHANGED HUMIDIFIER FILTER.
[2016-11-21] MEDS: LEVETIRACETAM 500 MG/5 ML LIQUID UDC GT SCH ×2 (09:55→20:46)
[2016-11-21] MEDS: ACIDOPHILUS/BULGARICUS CHEW TAB GT SCH ×2 (09:55→20:46)
[2016-11-21] MEDS: FAMOTIDINE 20 MG TABLET GT SCH ×2 (09:56→20:48)
[2016-11-21] MEDS: PHENOBARBITAL GT SCH ×2 (09:56→20:48)
[2016-11-21] MEDS: FUROSEMIDE 40 MG/4 ML GT SCH (09:56)
[2016-11-21] MEDS: VITAMINS A AND D OINT TP SCH (09:57)
[2016-11-21] MEDS: HYDROGEN PEROXIDE 3% 118 ML BOTTLE TP SCH ×2 (09:57→20:48)
[2016-11-21] MEDS: COD LIVER OIL/ZINC OXIDE OINT 113 GM TUBE TOP SCH ×2 (09:57→21:00)
[2016-11-21] MEDS: POTASSIUM CHLORIDE 20 MEQ TAB.PRT.SR XX SCH ×2 (09:57→17:28)
[2016-11-21] MEDS: INSULIN DETEMIR 300 UNIT/3 ML CARTRIDGE SQ SCH ×2 (09:59→20:51)
--- NOTE | 2016-11-21 14:13 | NUR ---
SEEN BY DR. IHCKMAN AND WITH NEW ORDERS AND CARRIED OUT.
--- NOTE | 2016-11-21 14:13 | NUR ---
SEEN BY ROUTER SETTER AND WITH NEW ORDERS CARRIED OUT.
[2016-11-21] MEDS ORDERED: FLUOCINONIDE 0.05% CREAM 30 GM TUBE TP SCH (17:00)
[2016-11-21] MEDS: FISH OIL GT SCH (20:47)
[2016-11-21] MEDS: [UNRECOGNIZED DRUG - OTHER] GT SCH (20:47)
[2016-11-21] MEDS: CALCIUM CARBONATE 500 MG TAB.CHEW GT SCH (20:48)
[2016-11-21 22:08] VITALS: BP 113/62
[2016-11-21] MEDS: DIABETICSOURCE AC 1000ML LIQUID GT PRN (23:28)
--- NOTE | 2016-11-22 01:41 | NUR ---
On Fluocinonide cream for chest and left arm Cellulitis, no adverse reactions noted, good skin care done, kept clean and comfortable.
[2016-11-22] MEDS: BACLOFEN 10 MG TABLET GT SCH ×4 (05:07→23:27)
[2016-11-22] MEDS: NUTRISOURCE FIBER 4 GM PACKET GT SCH ×3 (05:07→21:35)
[2016-11-22] MEDS: BLOOD SUGAR DIAGNOSTIC 1 EACH STRIP VI SCH ×4 (05:07→23:27)
[2016-11-22 08:03] VITALS: BP 115/70
[2016-11-22] MEDS: ACIDOPHILUS/BULGARICUS CHEW TAB GT SCH ×2 (08:19→21:28)
[2016-11-22] MEDS: LEVETIRACETAM 500 MG/5 ML LIQUID UDC GT SCH ×2 (08:22→21:28)
[2016-11-22] MEDS: FUROSEMIDE 40 MG/4 ML GT SCH (08:25)
[2016-11-22] MEDS: PHENOBARBITAL GT SCH ×2 (08:27→21:28)
[2016-11-22] MEDS: FAMOTIDINE 20 MG TABLET GT SCH ×2 (08:27→21:32)
--- NOTE | 2016-11-22 08:30 | NUR ---
Pt received in bed, laying semi-Huff's, with eyes open, unable to communicate, withdraws to physical stimuli - obtunded.. Pt trach: [place]aley [address] / secure with tie, no visible sign of irritation / breakdown noted around / under trach tie.. Trach site clean / dry at this time, stoma appears normal, no discoloration noted.. Continuous mechanical ventilation, vent: HT-50 w/settings: A/C 12, Vt 450, PEEP +5, FiO2 35%, tolerating well, no changes made to vent settings at this time.. Vent alarms checked, alarms are on / audible and functioning properly at this time.. BVM / back up trach at bedside.. No s/s of respiratory distress / S.O.B noted.. Will continue to monitor..
[2016-11-22] MEDS: INSULIN DETEMIR 300 UNIT/3 ML CARTRIDGE SQ SCH ×2 (08:31→21:33)
[2016-11-22] MEDS: COD LIVER OIL/ZINC OXIDE OINT 113 GM TUBE TOP SCH ×2 (08:32→21:35)
[2016-11-22] MEDS: VITAMINS A AND D OINT TP SCH (08:33)
[2016-11-22] MEDS: POTASSIUM CHLORIDE 20 MEQ TAB.PRT.SR XX SCH ×2 (08:33→17:22)
[2016-11-22] MEDS: FLUOCINONIDE 0.05% CREAM 30 GM TUBE TP SCH ×2 (08:33→17:22)
[2016-11-22] MEDS: HYDROGEN PEROXIDE 3% 118 ML BOTTLE TP SCH ×2 (09:00→21:32)
[2016-11-22] MEDS: INSULIN REGULAR, HUMAN 300 UNIT/3 ML VIAL SQ PRN ×4 (12:51→23:39)
--- NOTE | 2016-11-22 14:00 | NUR ---
SEEN BY DR BARNETT AWARE PT HAS A EPISODE OF LOW GRADE TEMP,APPROX 95 DEGREES,WARMING BLANKET USED WITH HELP ,TEMP 98 DEGREES.NO NEW ORDERS.
--- NOTE | 2016-11-22 14:00 | NUR ---
SEEN AND EXAMINED BY CLIFFORD WITH NEW ORDERS NOTED,DECREASE WATER FLUSH TO 200 ML EVERY 6 HOURS.
[2016-11-22] MEDS: FISH OIL GT SCH (21:28)
[2016-11-22] MEDS: [UNRECOGNIZED DRUG - OTHER] GT SCH (21:28)
[2016-11-22] MEDS: CALCIUM CARBONATE 500 MG TAB.CHEW GT SCH (21:32)
[2016-11-22 23:33] VITALS: BP 111/62
--- NOTE | 2016-11-23 00:57 | NUR ---
PT ON CONT HT 50 VENT WITH SHILEY # [address] AND SECURED, WITH SAME CURRENT VENT SETTINGS, PT DOES ASSIST AT TIMES, CHECK CUFF, CHANGE HME, SUCTIONED LIGHT PALE YELL TINGE SECRETIONS, WITH GOOD COUGH EFFORT, NO VENT CHANGES MADE AT THIS TIME, ALL ALARMS OK, AMBU BAG AT BEDSIDE, NO SIGNS OF RESP. DISTRESS NOTED, PT STABLE. Andi FERGUSON BONDED STRAND OPERATOR Addendum: 11/23/16 at 0100 by ETHEL FERGUSON RT Amended: Links added.
--- NOTE | 2016-11-23 05:22 | NUR ---
Patient is warm to touch temperature is 98.2, no signs of any distress noted, medications given as ordered, kept clean and comfortable.
[2016-11-23] MEDS: NUTRISOURCE FIBER 4 GM PACKET GT SCH ×3 (05:31→21:25)
[2016-11-23] MEDS: BACLOFEN 10 MG TABLET GT SCH ×4 (05:31→23:46)
[2016-11-23] MEDS: BLOOD SUGAR DIAGNOSTIC 1 EACH STRIP VI SCH ×4 (05:31→23:46)
[2016-11-23] MEDS: ACIDOPHILUS/BULGARICUS CHEW TAB GT SCH ×2 (08:08→21:14)
[2016-11-23] MEDS: FUROSEMIDE 40 MG/4 ML GT SCH (08:08)
[2016-11-23] MEDS: LEVETIRACETAM 500 MG/5 ML LIQUID UDC GT SCH ×2 (08:08→21:15)
[2016-11-23] MEDS: POTASSIUM CHLORIDE 20 MEQ TAB.PRT.SR XX SCH ×2 (08:09→17:05)
[2016-11-23] MEDS: FLUOCINONIDE 0.05% CREAM 30 GM TUBE TP SCH ×2 (08:09→17:05)
[2016-11-23] MEDS: PHENOBARBITAL GT SCH ×2 (08:09→21:16)
[2016-11-23] MEDS: FAMOTIDINE 20 MG TABLET GT SCH ×2 (08:09→21:16)
[2016-11-23] MEDS: VITAMINS A AND D OINT TP SCH (08:09)
[2016-11-23] MEDS: COD LIVER OIL/ZINC OXIDE OINT 113 GM TUBE TOP SCH ×2 (08:09→21:16)
[2016-11-23] MEDS: HYDROGEN PEROXIDE 3% 118 ML BOTTLE TP SCH ×2 (08:09→21:16)
[2016-11-23] MEDS: INSULIN DETEMIR 300 UNIT/3 ML CARTRIDGE SQ SCH ×2 (08:14→21:24)
--- NOTE | 2016-11-23 08:24 | NUR ---
PT RECEIVED ON CONTINUOUS MECHANICAL VENTILATION WITH SETTINGS OF AC 12, VT 450, PEEP +5, FIO2 35%. NO CHANGES MADE AT THIS TIME. VENT CHECK DONE; ALARMS CHECKED, ARE ON AND AUDIBLE. PT SHOWING NO S/S OF RESPIRATORY DISTRESS AT THIS TIME. SH. 6DCT TRACH IS PATENT AND SECURED WITH TRACH TIES. SUCTIONED SMALL AMOUNT OF THICK, YELLOW SECRETIONS. CUFF PRESSURE CHECKED AND IS INFLATED. HME CHANGED PRN. BVM AND BACK UP TRACH ARE AT BEDSIDE. VENT IS PLUGGED INTO RED EMERGENCY OUTLET. WILL MONITOR PT THROUGH SHIFT.
[2016-11-23] MEDS: DIABETICSOURCE AC 1000ML LIQUID GT PRN (08:34)
--- NOTE | 2016-11-23 11:00 | NUR ---
SEEN BY HARSH FULLER.
[2016-11-23 11:34] VITALS: BP 101/50
[2016-11-23 20:00] VITALS: BP 100/46
[2016-11-23] MEDS: FISH OIL GT SCH (21:16)
[2016-11-23] MEDS: [UNRECOGNIZED DRUG - OTHER] GT SCH (21:16)
[2016-11-23] MEDS: CALCIUM CARBONATE 500 MG TAB.CHEW GT SCH (21:16)
[2016-11-23] MEDS: INSULIN REGULAR, HUMAN 300 UNIT/3 ML VIAL SQ PRN (23:49)
[2016-11-24] MEDS: BACLOFEN 10 MG TABLET GT SCH ×3 (05:24→17:03)
[2016-11-24] MEDS: NUTRISOURCE FIBER 4 GM PACKET GT SCH ×3 (05:24→21:39)
[2016-11-24] MEDS: BLOOD SUGAR DIAGNOSTIC 1 EACH STRIP VI SCH ×3 (05:25→17:16)
[2016-11-24 07:50] LABS: CREATININE 0.9 mg/dL (0.6-1.3)
[2016-11-24] MEDS: INSULIN DETEMIR 300 UNIT/3 ML CARTRIDGE SQ SCH ×2 (08:03→20:59)
[2016-11-24] MEDS: LEVETIRACETAM 500 MG/5 ML LIQUID UDC GT SCH ×2 (08:05→20:38)
[2016-11-24] MEDS: ACIDOPHILUS/BULGARICUS CHEW TAB GT SCH ×2 (08:05→20:38)
[2016-11-24] MEDS: HYDROGEN PEROXIDE 3% 118 ML BOTTLE TP SCH ×2 (08:06→20:38)
[2016-11-24] MEDS: FUROSEMIDE 40 MG/4 ML GT SCH (08:06)
[2016-11-24] MEDS: COD LIVER OIL/ZINC OXIDE OINT 113 GM TUBE TOP SCH ×2 (08:06→20:38)
[2016-11-24] MEDS: FAMOTIDINE 20 MG TABLET GT SCH ×2 (08:06→20:38)
[2016-11-24] MEDS: PHENOBARBITAL GT SCH ×2 (08:06→20:38)
[2016-11-24] MEDS: POTASSIUM CHLORIDE 20 MEQ TAB.PRT.SR XX SCH ×2 (08:07→17:03)
[2016-11-24] MEDS: FLUOCINONIDE 0.05% CREAM 30 GM TUBE TP SCH ×2 (08:07→17:03)
[2016-11-24] MEDS: DIABETICSOURCE AC 1000ML LIQUID GT PRN (08:07)
[2016-11-24] MEDS: VITAMINS A AND D OINT TP SCH (08:07)
--- NOTE | 2016-11-24 08:15 | NUR ---
Pt received on Continuous mechanical ventilation via trach. Pt is in semi diaz position and has limited response to verbal stimuli. Pt is on [place] HT-50 vent with settings of A/C-12, VT-450, PEEP +5, FIO2-35%. Trach is a Shiley 6 DCT. Trach is patent and secure. No irritation or redness noted around stoma or trach tie. Tolerating vent settings well. SpO2-98%. HME changed. PPE used. Vent alarm parameters checked, on and audible. Vent plugged into red emergency outlet. Bag/valve/mask and back up trach bedside. Will continue to monitor.
[2016-11-24 11:35] VITALS: BP 100/61
--- NOTE | 2016-11-24 20:12 | NUR ---
Received pt on HT-50 vent with the following settings of AC-12, Vt-450, PEEP+5, FIO2-35%, trached with Shiley#6 DCT trach, which is in the place and secure. No sob noted. Airway care done, pt responded to physical stimuli. HME changed. Resus. bag and back up trach at bedside. Vent and alarms checked and reset.
[2016-11-24] MEDS: FISH OIL GT SCH (20:38)
[2016-11-24] MEDS: [UNRECOGNIZED DRUG - OTHER] GT SCH (20:38)
[2016-11-24] MEDS: CALCIUM CARBONATE 500 MG TAB.CHEW GT SCH (20:38)
[2016-11-24 22:10] VITALS: BP 110/56
[2016-11-25] MEDS: INSULIN REGULAR, HUMAN 300 UNIT/3 ML VIAL SQ PRN ×3 (01:26→17:33)
[2016-11-25] MEDS: BLOOD SUGAR DIAGNOSTIC 1 EACH STRIP VI SCH ×4 (05:47→17:33)
[2016-11-25] MEDS: NUTRISOURCE FIBER 4 GM PACKET GT SCH ×3 (05:47→21:16)
[2016-11-25] MEDS: BACLOFEN 10 MG TABLET GT SCH ×4 (05:47→17:32)
[2016-11-25] MEDS: FLUOCINONIDE 0.05% CREAM 30 GM TUBE TP SCH ×2 (09:00→16:45)
[2016-11-25] MEDS: VITAMINS A AND D OINT TP SCH (09:00)
[2016-11-25] MEDS: COD LIVER OIL/ZINC OXIDE OINT 113 GM TUBE TOP SCH ×2 (09:00→20:07)
[2016-11-25] MEDS: HYDROGEN PEROXIDE 3% 118 ML BOTTLE TP SCH ×2 (09:00→20:07)
[2016-11-25] MEDS: POTASSIUM CHLORIDE 20 MEQ TAB.PRT.SR XX SCH ×2 (09:00→16:45)
[2016-11-25] MEDS: LEVETIRACETAM 500 MG/5 ML LIQUID UDC GT SCH ×2 (09:54→20:06)
[2016-11-25] MEDS: ACIDOPHILUS/BULGARICUS CHEW TAB GT SCH ×2 (09:54→20:06)
[2016-11-25] MEDS: PHENOBARBITAL GT SCH ×2 (09:56→20:07)
[2016-11-25] MEDS: FUROSEMIDE 40 MG/4 ML GT SCH (09:56)
[2016-11-25] MEDS: FAMOTIDINE 20 MG TABLET GT SCH ×2 (09:56→20:07)
[2016-11-25] MEDS: INSULIN DETEMIR 300 UNIT/3 ML CARTRIDGE SQ SCH ×2 (10:00→21:16)
[2016-11-25 11:36] VITALS: BP 102/57
[2016-11-25] MEDS: FISH OIL GT SCH (20:07)
[2016-11-25] MEDS: CALCIUM CARBONATE 500 MG TAB.CHEW GT SCH (20:07)
[2016-11-25] MEDS: [UNRECOGNIZED DRUG - OTHER] GT SCH (20:07)
--- NOTE | 2016-11-25 20:20 | NUR ---
Pt received on Continuous mechanical ventilation via trach, in semi fowlers position and has limited response to verbal stimuli. Pt is on [place] HT-50 vent with settings of A/C-12, VT-450, PEEP +5, FIO2-35%. Trach is a Shiley 6 DCT. Trach is patent and secure. No irritation or redness noted around stoma or trach tie. Tolerating vent settings well. SpO2-100%. HME & in-line suction catheter changed. PPE used. Vent alarm parameters checked, on and audible. Vent plugged into red emergency outlet. Bag/valve/mask and back up trach bedside. Will continue to monitor.
[2016-11-25 20:48] VITALS: BP 106/53
[2016-11-26] MEDS: INSULIN REGULAR, HUMAN 300 UNIT/3 ML VIAL SQ PRN (01:20)
[2016-11-26] MEDS: BACLOFEN 10 MG TABLET GT SCH ×4 (05:30→17:09)
[2016-11-26] MEDS: BLOOD SUGAR DIAGNOSTIC 1 EACH STRIP VI SCH ×4 (05:31→17:15)
[2016-11-26] MEDS: NUTRISOURCE FIBER 4 GM PACKET GT SCH ×3 (06:00→21:20)
[2016-11-26] MEDS: PHENOBARBITAL GT SCH ×2 (08:47→21:20)
[2016-11-26] MEDS: ACIDOPHILUS/BULGARICUS CHEW TAB GT SCH ×2 (08:47→21:19)
[2016-11-26] MEDS: LEVETIRACETAM 500 MG/5 ML LIQUID UDC GT SCH ×2 (08:47→21:19)
[2016-11-26] MEDS: FUROSEMIDE 40 MG/4 ML GT SCH (08:47)
[2016-11-26] MEDS: FAMOTIDINE 20 MG TABLET GT SCH ×2 (08:47→21:20)
[2016-11-26] MEDS: COD LIVER OIL/ZINC OXIDE OINT 113 GM TUBE TOP SCH ×2 (08:49→21:20)
[2016-11-26] MEDS: INSULIN DETEMIR 300 UNIT/3 ML CARTRIDGE SQ SCH ×2 (08:49→21:55)
[2016-11-26] MEDS: POTASSIUM CHLORIDE 20 MEQ TAB.PRT.SR XX SCH ×2 (08:49→17:09)
[2016-11-26] MEDS: FLUOCINONIDE 0.05% CREAM 30 GM TUBE TP SCH ×2 (08:49→17:09)
[2016-11-26] MEDS: VITAMINS A AND D OINT TP SCH (08:49)
[2016-11-26] MEDS: HYDROGEN PEROXIDE 3% 118 ML BOTTLE TP SCH ×2 (08:49→21:20)
[2016-11-26 11:32] VITALS: BP 100/51
--- NOTE | 2016-11-26 20:10 | NUR ---
Received pt on HT-50 vent with the following settings of AC-12, Vt-450, PEEP+5, FIO2-35%, trached with Shiley#6 DCT trach, which is in the place and secure. No distress noted. Airway care done, pt responded to physical stimuli. HME changed. Resus. bag and back up trach at bedside. Vent and alarms on and audible.
[2016-11-26] MEDS: [UNRECOGNIZED DRUG - OTHER] GT SCH (21:19)
[2016-11-26] MEDS: FISH OIL GT SCH (21:19)
[2016-11-26] MEDS: CALCIUM CARBONATE 500 MG TAB.CHEW GT SCH (21:20)
[2016-11-26 23:33] VITALS: BP 99/55
[2016-11-27] MEDS: BACLOFEN 10 MG TABLET GT SCH ×4 (00:13→17:30)
[2016-11-27] MEDS: BLOOD SUGAR DIAGNOSTIC 1 EACH STRIP VI SCH ×4 (00:13→17:30)
[2016-11-27] MEDS: NUTRISOURCE FIBER 4 GM PACKET GT SCH ×3 (06:16→21:46)
[2016-11-27 06:56] LABS: BASOPHILS % (AUTO) 0.7 % (0.0-2.0); EOSINOPHILS # (AUTO) 0.2 K/uL (0.0-0.7); EOSINOPHILS % (AUTO) 5.2 % (0.0-7.0); HEMATOCRIT 27.1 % (37-47); HEMOGLOBIN 8.8 G/DL (12.0-16.0); LYMPHOCYTES # (AUTO) 1.7 K/UL (0.8-4.8); MEAN CORPUSCULAR HEMOGLOBIN 32.4 UUG (27.0-31.0); MEAN CORPUSCULAR HGB CONC 32 g/dL (32.0-37.0); MEAN CORPUSCULAR VOLUME 99.8 FL (81.0-99.0); MONOCYTES # (AUTO) 0.2 K/UL (0.1-1.30); MONOCYTES % (AUTO) 6.9 % (0.0-11.0); NEUTROPHILS # (AUTO) 1.5 K/UL (1.8-8.9); NEUTROPHILS % (AUTO) 43.2 % (38.5-71.5); PLATELET COUNT (AUTO) 97 K/UL (150-450); RED BLOOD CELL COUNT(AUTO) 2.72 MIL/UL (4.2-5.4); WHITE BLOOD COUNT (AUTO) 3.6 K/UL (4.0-11.2)
[2016-11-27 07:10] LABS: CREATININE 0.8 mg/dL (0.6-1.3)
[2016-11-27 07:56] LABS: BAND % (MANUAL) 11 % (0-10); BASOPHILS % (MANUAL) 1 % (0-2); EOSINOPHILS % (MANUAL) 5 % (0-8); LYMPHOCYTES % (MANUAL) 41 % (20-40); MONOCYTES % (MANUAL) 6 % (2-10); NEUTROPHILS % (MANUAL) 36 % (42-75)
[2016-11-27 08:00] VITALS: BP 103/60
[2016-11-27] MEDS: ACIDOPHILUS/BULGARICUS CHEW TAB GT SCH ×2 (09:47→21:45)
[2016-11-27] MEDS: LEVETIRACETAM 500 MG/5 ML LIQUID UDC GT SCH ×2 (09:48→21:45)
[2016-11-27] MEDS: PHENOBARBITAL GT SCH ×2 (09:50→21:45)
[2016-11-27] MEDS: FAMOTIDINE 20 MG TABLET GT SCH ×2 (09:50→21:45)
[2016-11-27] MEDS: FUROSEMIDE 40 MG/4 ML GT SCH (09:50)
[2016-11-27] MEDS: POTASSIUM CHLORIDE 20 MEQ TAB.PRT.SR XX SCH ×2 (09:51→17:29)
[2016-11-27] MEDS: VITAMINS A AND D OINT TP SCH (09:51)
[2016-11-27] MEDS: HYDROGEN PEROXIDE 3% 118 ML BOTTLE TP SCH ×2 (09:51→21:46)
[2016-11-27] MEDS: COD LIVER OIL/ZINC OXIDE OINT 113 GM TUBE TOP SCH ×2 (09:51→21:46)
[2016-11-27] MEDS: FLUOCINONIDE 0.05% CREAM 30 GM TUBE TP SCH ×2 (09:52→17:29)
[2016-11-27] MEDS: INSULIN DETEMIR 300 UNIT/3 ML CARTRIDGE SQ SCH ×2 (09:56→21:48)
--- NOTE | 2016-11-27 11:30 | NUR ---
SEEN AND EXAMINED BY DYLAN COLLAZO ,NO NEW ORDERS.
[2016-11-27] MEDS: INSULIN REGULAR, HUMAN 300 UNIT/3 ML VIAL SQ PRN ×2 (12:24→17:30)
--- NOTE | 2016-11-27 14:00 | NUR ---
SEEN AND EXAMINED BY DENISE COLLAZO WITH NEW ORDERS NOTED.
--- NOTE | 2016-11-27 19:50 | NUR ---
Pt received on [place] HT-50 settings AC 12, VT 450, PEEP+5, FIO2-35%. Shiley 6 DCT is patent and secure. Backup Shiley 6 DCT and BVM at bedside. No respiratory distress noted. Pt to be monitored throughout the shift and PRN SX. HT-50 alarm parameters have been checked and remain audible.
[2016-11-27 20:00] VITALS: BP 107/53
[2016-11-27] MEDS: FISH OIL GT SCH (21:45)
[2016-11-27] MEDS: CALCIUM CARBONATE 500 MG TAB.CHEW GT SCH (21:45)
[2016-11-27] MEDS: [UNRECOGNIZED DRUG - OTHER] GT SCH (21:45)
[2016-11-28] MEDS: BACLOFEN 10 MG TABLET GT SCH ×4 (00:46→17:49)
[2016-11-28] MEDS: BLOOD SUGAR DIAGNOSTIC 1 EACH STRIP VI SCH ×4 (00:46→17:50)
[2016-11-28] MEDS: NUTRISOURCE FIBER 4 GM PACKET GT SCH ×3 (05:48→21:32)
--- NOTE | 2016-11-28 07:46 | NUR ---
Pt received laying in bed, semi-Huff's, awake - eyes open, obtunded - unable to communicate, withdraws to physical stimuli.. Pt trach: Shiley [address]/secure with tie, no visible sign of skin irritation/breakdown noted under/around trach tie.. Trach site clean/dry, stoma appears normal, no discoloration noted.. Continuous mechanical ventilation, vent: HT-50 w/settings: A/C 12, Vt 450, PEEP +5, FiO2 35%, tolerating well, no changes made to vent settings at this time.. Vent alarms checked, alarms on/audible and functioning properly at this time.. BVM/back up trach at bedside.. No s/s of respiratory distress/S.O.B noted.. Will continue to monitor..
[2016-11-28] MEDS: ACIDOPHILUS/BULGARICUS CHEW TAB GT SCH ×2 (08:37→21:27)
[2016-11-28] MEDS: LEVETIRACETAM 500 MG/5 ML LIQUID UDC GT SCH ×2 (08:38→21:28)
[2016-11-28] MEDS: FUROSEMIDE 40 MG/4 ML GT SCH (08:38)
[2016-11-28] MEDS: HYDROGEN PEROXIDE 3% 118 ML BOTTLE TP SCH ×2 (08:39→21:32)
[2016-11-28] MEDS: COD LIVER OIL/ZINC OXIDE OINT 113 GM TUBE TOP SCH ×2 (08:39→21:31)
[2016-11-28] MEDS: PHENOBARBITAL GT SCH ×2 (08:39→21:28)
[2016-11-28] MEDS: FAMOTIDINE 20 MG TABLET GT SCH ×2 (08:39→21:28)
[2016-11-28] MEDS: FLUOCINONIDE 0.05% CREAM 30 GM TUBE TP SCH ×2 (08:40→17:49)
[2016-11-28] MEDS: VITAMINS A AND D OINT TP SCH (08:40)
[2016-11-28] MEDS: POTASSIUM CHLORIDE 20 MEQ TAB.PRT.SR XX SCH ×2 (08:41→17:49)
[2016-11-28] MEDS: INSULIN DETEMIR 300 UNIT/3 ML CARTRIDGE SQ SCH ×2 (08:43→21:31)
[2016-11-28 09:22] VITALS: BP 109/68
--- NOTE | 2016-11-28 14:20 | NUR ---
SEEN BY DENISE FULLER.
[2016-11-28 20:00] VITALS: BP 103/45
--- NOTE | 2016-11-28 20:45 | NUR ---
RECEIVED PT ON HT-50 VENT. CURRENT VENT SETTINGS ARE AC 12, VT 450, PEEP +5, FIO2 35%. NO CHANGES MADE AT THIS TIME. NO S/S OF RESPIRATORY DISTRESS OBSERVED. VENTILATOR CHECKED, ALARMS CHECKED, ARE ON AND FUNCTIONING PROPERLY. SH. TRACH IS PATENT AND SECURED WITH TRACH TIES. SUCTIONED SMALL AMOUNT OF THICK, YELLOW SECRETIONS. HME CHANGED. AMBU BAG AND BACK UP TRACH ARE CURRENTLY AT BEDSIDE. VENT IS PLUGGED INTO EMERGENCY OUTLET. WILL MONITOR PT.
[2016-11-28] MEDS: FISH OIL GT SCH (21:28)
[2016-11-28] MEDS: [UNRECOGNIZED DRUG - OTHER] GT SCH (21:28)
[2016-11-28] MEDS: CALCIUM CARBONATE 500 MG TAB.CHEW GT SCH (21:29)
[2016-11-29] MEDS: BACLOFEN 10 MG TABLET GT SCH ×4 (00:45→17:01)
[2016-11-29] MEDS: BLOOD SUGAR DIAGNOSTIC 1 EACH STRIP VI SCH ×4 (00:45→17:01)
[2016-11-29] MEDS: INSULIN REGULAR, HUMAN 300 UNIT/3 ML VIAL SQ PRN ×3 (00:46→17:01)
[2016-11-29] MEDS: NUTRISOURCE FIBER 4 GM PACKET GT SCH ×3 (05:43→21:30)
--- NOTE | 2016-11-29 07:54 | NUR ---
PATIENT RECEIVED ON CONTINUOUS MECHANICAL VENTILATION . TRACH PROPERLY SECURED AND INTACT. AIRWAY PATENT. PATIENT TOLERATING PRESCRIBED VENTILATOR SETTINGS FINE SHOWING NO EVIDENCE OF RESPIRATORY DISTRESS. BREATH SOUNDS RHONCHI. PRN TRACHEAL SUCTIONED PERFORMED AND HAD MODERATE AMOUNT OF OFF WHITE YELLOWISH SEMI THICK SECRETIONS. PATIENT POSITIONED SEMI BROOKE WITH HEAD OF THE BED ELEVATED 35-45 DEGREE ANGLE. VENT ALARMS SET,AUDIBLE, AND WORKING. VENT PLUGGED INTO RED OUTLET. PT APPEARS COMFORTABLE.
[2016-11-29 08:00] VITALS: BP 102/56
[2016-11-29] MEDS: INSULIN DETEMIR 300 UNIT/3 ML CARTRIDGE SQ SCH ×2 (08:31→21:30)
[2016-11-29] MEDS: ACIDOPHILUS/BULGARICUS CHEW TAB GT SCH ×2 (08:31→21:17)
[2016-11-29] MEDS: LEVETIRACETAM 500 MG/5 ML LIQUID UDC GT SCH ×2 (08:32→21:17)
[2016-11-29] MEDS: FUROSEMIDE 40 MG/4 ML GT SCH (08:32)
[2016-11-29] MEDS: PHENOBARBITAL GT SCH ×2 (08:32→21:17)
[2016-11-29] MEDS: HYDROGEN PEROXIDE 3% 118 ML BOTTLE TP SCH ×2 (08:33→21:30)
[2016-11-29] MEDS: COD LIVER OIL/ZINC OXIDE OINT 113 GM TUBE TOP SCH ×2 (08:33→21:30)
[2016-11-29] MEDS: FAMOTIDINE 20 MG TABLET GT SCH ×2 (08:33→21:17)
[2016-11-29] MEDS: FLUOCINONIDE 0.05% CREAM 30 GM TUBE TP SCH ×2 (08:34→16:57)
[2016-11-29] MEDS: VITAMINS A AND D OINT TP SCH (08:34)
[2016-11-29] MEDS: POTASSIUM CHLORIDE 20 MEQ TAB.PRT.SR XX SCH ×2 (08:34→16:58)
--- NOTE | 2016-11-29 17:30 | NUR ---
SEEN AND EXAMINED BY DR BARNETT,WITH NO NEW ORDERS NOTED.
--- NOTE | 2016-11-29 21:05 | NUR ---
RECEIVED PT ON THE HT-50 VENT WITH THE FOLLOWING SETTINGS THAT CHARTED ON MECHANICAL VENT NOTES. SUCTIONED SMALL AMOUNTS OF THICK WHITE AND YELLOW SECRETIONS. VENT IS PLUGGED IN RED OUTLET. VENT ALARMS ARE ON AND AUDIBLE. HME CHANGED PRN. TRACH IS PROPERLY SECURED WITH TRACH TIES. AIRWAY IS PATENT. NO SOB NOTED AT THIS TIME. WILL CONTINUE TO MONITOR PT THROUGHOUT SHIFT.
[2016-11-29 21:12] VITALS: BP 94/51
[2016-11-29] MEDS: [UNRECOGNIZED DRUG - OTHER] GT SCH (21:17)
[2016-11-29] MEDS: CALCIUM CARBONATE 500 MG TAB.CHEW GT SCH (21:17)
[2016-11-29] MEDS: FISH OIL GT SCH (21:17)
[2016-11-30] MEDS: BACLOFEN 10 MG TABLET GT SCH ×4 (00:24→17:07)
[2016-11-30] MEDS: BLOOD SUGAR DIAGNOSTIC 1 EACH STRIP VI SCH ×4 (00:24→17:07)
[2016-11-30] MEDS: NUTRISOURCE FIBER 4 GM PACKET GT SCH ×3 (05:45→21:36)
[2016-11-30 06:40] LABS: BASOPHILS % (AUTO) 0.7 % (0.0-2.0); EOSINOPHILS # (AUTO) 0.2 K/uL (0.0-0.7); EOSINOPHILS % (AUTO) 5.1 % (0.0-7.0); HEMATOCRIT 26.5 % (37-47); HEMOGLOBIN 8.8 G/DL (12.0-16.0); LYMPHOCYTES # (AUTO) 1.7 K/UL (0.8-4.8); LYMPHOCYTES % (AUTO) 44.9 % (20.5-51.5); MEAN CORPUSCULAR HEMOGLOBIN 34.1 UUG (27.0-31.0); MEAN CORPUSCULAR HGB CONC 33 g/dL (32.0-37.0); MEAN CORPUSCULAR VOLUME 102.9 FL (81.0-99.0); MONOCYTES # (AUTO) 0.2 K/UL (0.1-1.30); MONOCYTES % (AUTO) 5.1 % (0.0-11.0); NEUTROPHILS # (AUTO) 1.6 K/UL (1.8-8.9); NEUTROPHILS % (AUTO) 44.2 % (38.5-71.5); PLATELET COUNT (AUTO) 90 K/UL (150-450); RED BLOOD CELL COUNT(AUTO) 2.57 MIL/UL (4.2-5.4); WHITE BLOOD COUNT (AUTO) 3.7 K/UL (4.0-11.2)
[2016-11-30 06:49] LABS: CREATININE 0.9 mg/dL (0.6-1.3); POTASSIUM 3.6 mmol/L (3.5-5.1)
--- NOTE | 2016-11-30 07:47 | NUR ---
AIRWAY PATENT. PATIENT TOLERATING PRESCRIBED VENTILATOR SETTINGS FINE SHOWING NO EVIDENCE OF RESPIRATORY DISTRESS. BREATH SOUNDS RHONCHI. PRN TRACHEAL SUCTIONING PERFORMED AND HAD MODERATE AMOUNT OF OFF WHITE YELLOWISH SEMI THICK SECRETIONS. PATIENT POSITIONED SEMI BROOKE WITH HEAD OF THE BED ELEVATED 35-45 DEGREE ANGLE. VENT ALARMS SET,AUDIBLE, AND WORKING. VENT PLUGGED INTO RED OUTLET. PT APPEARS COMFORTABLE.
[2016-11-30 08:00] VITALS: BP 106/60
[2016-11-30 08:05] LABS: BAND % (MANUAL) 8 % (0-10); EOSINOPHILS % (MANUAL) 7 % (0-8); LYMPHOCYTES % (MANUAL) 45 % (20-40); MONOCYTES % (MANUAL) 2 % (2-10); NEUTROPHILS % (MANUAL) 38 % (42-75)
[2016-11-30] MEDS: ACIDOPHILUS/BULGARICUS CHEW TAB GT SCH ×2 (08:20→20:54)
[2016-11-30] MEDS: LEVETIRACETAM 500 MG/5 ML LIQUID UDC GT SCH ×2 (08:20→20:54)
[2016-11-30] MEDS: FUROSEMIDE 40 MG/4 ML GT SCH (08:21)
[2016-11-30] MEDS: HYDROGEN PEROXIDE 3% 118 ML BOTTLE TP SCH ×2 (08:21→20:56)
[2016-11-30] MEDS: FAMOTIDINE 20 MG TABLET GT SCH ×2 (08:21→20:55)
[2016-11-30] MEDS: PHENOBARBITAL GT SCH ×2 (08:21→20:54)
[2016-11-30] MEDS: COD LIVER OIL/ZINC OXIDE OINT 113 GM TUBE TOP SCH ×2 (08:21→20:56)
[2016-11-30] MEDS: FLUOCINONIDE 0.05% CREAM 30 GM TUBE TP SCH ×2 (08:22→16:39)
[2016-11-30] MEDS: POTASSIUM CHLORIDE 20 MEQ TAB.PRT.SR XX SCH ×2 (08:22→16:39)
[2016-11-30] MEDS: VITAMINS A AND D OINT TP SCH (08:22)
[2016-11-30] MEDS: INSULIN DETEMIR 300 UNIT/3 ML CARTRIDGE SQ SCH ×2 (08:26→21:12)
[2016-11-30] MEDS: DIABETICSOURCE AC 1000ML LIQUID GT PRN (10:19)
--- NOTE | 2016-11-30 11:30 | NUR ---
SEEN BY HARSH FULLER.
[2016-11-30] MEDS: INSULIN REGULAR, HUMAN 300 UNIT/3 ML VIAL SQ PRN ×2 (11:55→17:08)
[2016-11-30 20:00] VITALS: BP 91/44
--- NOTE | 2016-11-30 20:08 | NUR ---
Pt received awake, on HT-50 vent with the following settings of AC-12, Vt-450, PEEP+5, FIO2-35%, trached with Shiley#6 DCT trach, which is in the place and secure. No respiratory distress noted. Airway care done, pt responded to physical stimuli. HME changed. Resus. bag and back up trach at bedside. Vent and alarms checked and reset.
[2016-11-30] MEDS: [UNRECOGNIZED DRUG - OTHER] GT SCH (20:54)
[2016-11-30] MEDS: FISH OIL GT SCH (20:54)
[2016-11-30] MEDS: CALCIUM CARBONATE 500 MG TAB.CHEW GT SCH (20:55)
[2016-12-01] MEDS: BLOOD SUGAR DIAGNOSTIC 1 EACH STRIP VI SCH ×4 (00:25→17:17)
[2016-12-01] MEDS: BACLOFEN 10 MG TABLET GT SCH ×4 (00:25→17:17)
[2016-12-01] MEDS: NUTRISOURCE FIBER 4 GM PACKET GT SCH ×3 (05:09→21:34)
[2016-12-01 08:00] VITALS: BP 92/53
[2016-12-01] MEDS: LEVETIRACETAM 500 MG/5 ML LIQUID UDC GT SCH ×2 (08:25→21:33)
[2016-12-01] MEDS: ACIDOPHILUS/BULGARICUS CHEW TAB GT SCH ×2 (08:25→21:33)
[2016-12-01] MEDS: FUROSEMIDE 40 MG/4 ML GT SCH (08:26)
[2016-12-01] MEDS: INSULIN DETEMIR 300 UNIT/3 ML CARTRIDGE SQ SCH ×2 (08:27→21:34)
[2016-12-01] MEDS: FAMOTIDINE 20 MG TABLET GT SCH ×2 (08:27→21:33)
[2016-12-01] MEDS: PHENOBARBITAL GT SCH ×2 (08:27→21:33)
[2016-12-01] MEDS: FLUOCINONIDE 0.05% CREAM 30 GM TUBE TP SCH ×2 (08:29→17:16)
[2016-12-01] MEDS: VITAMINS A AND D OINT TP SCH (08:29)
[2016-12-01] MEDS: POTASSIUM CHLORIDE 20 MEQ TAB.PRT.SR XX SCH ×2 (08:29→17:16)
[2016-12-01] MEDS: HYDROGEN PEROXIDE 3% 118 ML BOTTLE TP SCH ×2 (08:29→21:33)
[2016-12-01] MEDS: COD LIVER OIL/ZINC OXIDE OINT 113 GM TUBE TOP SCH ×2 (08:29→21:33)
[2016-12-01] MEDS: INSULIN REGULAR, HUMAN 300 UNIT/3 ML VIAL SQ PRN ×2 (12:17→17:17)
[2016-12-01] MEDS: DIABETICSOURCE AC 1000ML LIQUID GT PRN (12:17)
--- NOTE | 2016-12-01 20:09 | NUR ---
Pt received on HT-50 vent with the following settings of AC-12, Vt-450, PEEP+5, FIO2-35%, trached with Shiley#6 DCT trach, which is in the place and secure. No sob noted. Airway care done, pt responded to physical stimuli. HME changed. Resus. bag and back up trach at bedside. Vent and alarms checked and reset.
[2016-12-01 20:22] VITALS: BP 107/56
[2016-12-01] MEDS: [UNRECOGNIZED DRUG - OTHER] GT SCH (21:33)
[2016-12-01] MEDS: CALCIUM CARBONATE 500 MG TAB.CHEW GT SCH (21:33)
[2016-12-01] MEDS: FISH OIL GT SCH (21:33)
[2016-12-02] MEDS: BACLOFEN 10 MG TABLET GT SCH ×5 (00:08→23:51)
[2016-12-02] MEDS: BLOOD SUGAR DIAGNOSTIC 1 EACH STRIP VI SCH ×5 (00:09→23:52)
[2016-12-02] MEDS: NUTRISOURCE FIBER 4 GM PACKET GT SCH ×3 (05:52→21:22)
[2016-12-02 08:02] VITALS: BP 109/51
--- NOTE | 2016-12-02 08:57 | NUR ---
SEEN AND EXAMINED BY ROXIE ALLISONO.
[2016-12-02] MEDS: LEVETIRACETAM 500 MG/5 ML LIQUID UDC GT SCH ×2 (09:27→20:02)
[2016-12-02] MEDS: FUROSEMIDE 40 MG/4 ML GT SCH (09:27)
[2016-12-02] MEDS: ACIDOPHILUS/BULGARICUS CHEW TAB GT SCH ×2 (09:27→20:01)
[2016-12-02] MEDS: PHENOBARBITAL GT SCH ×2 (09:28→20:02)
[2016-12-02] MEDS: HYDROGEN PEROXIDE 3% 118 ML BOTTLE TP SCH ×2 (09:28→20:03)
[2016-12-02] MEDS: POTASSIUM CHLORIDE 20 MEQ TAB.PRT.SR XX SCH ×2 (09:28→17:06)
[2016-12-02] MEDS: COD LIVER OIL/ZINC OXIDE OINT 113 GM TUBE TOP SCH ×2 (09:28→20:02)
[2016-12-02] MEDS: VITAMINS A AND D OINT TP SCH (09:28)
[2016-12-02] MEDS: FAMOTIDINE 20 MG TABLET GT SCH ×2 (09:28→20:02)
[2016-12-02] MEDS: INSULIN DETEMIR 300 UNIT/3 ML CARTRIDGE SQ SCH ×2 (09:31→21:19)
[2016-12-02] MEDS: INSULIN REGULAR, HUMAN 300 UNIT/3 ML VIAL SQ PRN ×2 (11:19→17:06)
[2016-12-02] MEDS: CALCIUM CARBONATE 500 MG TAB.CHEW GT SCH (20:02)
[2016-12-02] MEDS: FISH OIL GT SCH (20:02)
[2016-12-02] MEDS: [UNRECOGNIZED DRUG - OTHER] GT SCH (20:02)
[2016-12-02 22:56] VITALS: BP 91/40
--- NOTE | 2016-12-03 01:28 | NUR ---
PT ON CONT HT 50 VENT WITH SHILEY # [address] AND SECURED, WITH SAME CURRENT VENT SETTINGS, WITH GOOD COUGH EFFORT, SUCTIONED LIGHT PALE YELL TINGE SECRETIONS, WITH GOOD COUGH EFFORT, CHANGE HME AND PASCUAL, CHECK CUFF, NO VENT CHANGES MADE AT THIS TIME, ALL ALARMS OK AMBU BAG AT BEDSIDE.Andi CHAKRABORTYP Addendum: 12/03/16 at 0130 by ETHEL FERGUSON RT Amended: Links added.
[2016-12-03] MEDS: BLOOD SUGAR DIAGNOSTIC 1 EACH STRIP VI SCH ×4 (05:05→23:45)
[2016-12-03] MEDS: NUTRISOURCE FIBER 4 GM PACKET GT SCH ×3 (05:05→21:09)
[2016-12-03] MEDS: BACLOFEN 10 MG TABLET GT SCH ×4 (05:05→23:45)
[2016-12-03 08:05] VITALS: BP 96/58
[2016-12-03] MEDS: INSULIN DETEMIR 300 UNIT/3 ML CARTRIDGE SQ SCH ×2 (08:49→21:08)
[2016-12-03] MEDS: ACIDOPHILUS/BULGARICUS CHEW TAB GT SCH ×2 (08:52→21:05)
[2016-12-03] MEDS: LEVETIRACETAM 500 MG/5 ML LIQUID UDC GT SCH ×2 (08:52→21:05)
[2016-12-03] MEDS: FAMOTIDINE 20 MG TABLET GT SCH ×2 (08:53→21:05)
[2016-12-03] MEDS: FUROSEMIDE 40 MG/4 ML GT SCH (08:53)
[2016-12-03] MEDS: HYDROGEN PEROXIDE 3% 118 ML BOTTLE TP SCH ×2 (08:53→21:09)
[2016-12-03] MEDS: COD LIVER OIL/ZINC OXIDE OINT 113 GM TUBE TOP SCH ×2 (08:53→21:09)
[2016-12-03] MEDS: VITAMINS A AND D OINT TP SCH (08:53)
[2016-12-03] MEDS: PHENOBARBITAL GT SCH ×2 (08:53→21:05)
[2016-12-03] MEDS: POTASSIUM CHLORIDE 20 MEQ TAB.PRT.SR XX SCH ×2 (08:53→17:09)
[2016-12-03] MEDS: INSULIN REGULAR, HUMAN 300 UNIT/3 ML VIAL SQ PRN ×2 (12:40→17:10)
--- NOTE | 2016-12-03 20:24 | NUR ---
Pt received on HT-50 vent with AC-12, Vt-450, PEEP+5, FIO2-35%, trached with Shiley#6 DCT trach, which is in the place and secure. No distress noted. Airway care done, pt responded to physical stimuli. HME changed. Resus. bag and back up trach at bedside. Vent and alarms checked and reset.
[2016-12-03] MEDS: [UNRECOGNIZED DRUG - OTHER] GT SCH (21:05)
[2016-12-03] MEDS: FISH OIL GT SCH (21:05)
[2016-12-03] MEDS: CALCIUM CARBONATE 500 MG TAB.CHEW GT SCH (21:06)
--- NOTE | 2016-12-03 21:32 | NUR ---
Seen and examined by VALE Lomax with no new orders.
[2016-12-03 21:39] VITALS: BP 102/58
[2016-12-04] MEDS: BACLOFEN 10 MG TABLET GT SCH ×4 (05:14→23:57)
[2016-12-04] MEDS: NUTRISOURCE FIBER 4 GM PACKET GT SCH ×3 (05:14→21:56)
[2016-12-04] MEDS: BLOOD SUGAR DIAGNOSTIC 1 EACH STRIP VI SCH ×5 (05:15→23:57)
[2016-12-04 08:00] VITALS: BP 91/48
[2016-12-04] MEDS: ACIDOPHILUS/BULGARICUS CHEW TAB GT SCH ×2 (08:36→20:40)
[2016-12-04] MEDS: LEVETIRACETAM 500 MG/5 ML LIQUID UDC GT SCH ×2 (08:36→20:41)
[2016-12-04] MEDS: FUROSEMIDE 40 MG/4 ML GT SCH (08:39)
[2016-12-04] MEDS: FAMOTIDINE 20 MG TABLET GT SCH ×2 (08:40→20:41)
[2016-12-04] MEDS: PHENOBARBITAL GT SCH ×2 (08:40→20:41)
[2016-12-04] MEDS: COD LIVER OIL/ZINC OXIDE OINT 113 GM TUBE TOP SCH ×2 (08:42→20:44)
[2016-12-04] MEDS: VITAMINS A AND D OINT TP SCH (08:42)
[2016-12-04] MEDS: INSULIN DETEMIR 300 UNIT/3 ML CARTRIDGE SQ SCH ×2 (08:42→20:45)
[2016-12-04] MEDS: POTASSIUM CHLORIDE 20 MEQ TAB.PRT.SR XX SCH ×2 (08:42→17:43)
[2016-12-04] MEDS: HYDROGEN PEROXIDE 3% 118 ML BOTTLE TP SCH ×2 (08:42→20:44)
[2016-12-04] MEDS: [UNRECOGNIZED DRUG - OTHER] GT SCH (20:41)
[2016-12-04] MEDS: FISH OIL GT SCH (20:41)
[2016-12-04] MEDS: CALCIUM CARBONATE 500 MG TAB.CHEW GT SCH (20:41)
--- NOTE | 2016-12-04 21:11 | NUR ---
PATIENT RECEIVED ON HT-50 VENTILATOR WITH THE FOLLOWING SETTINGS THAT ARE CHARTED ON THE MECHANICAL VENT NOTES. TRACH IS PROPERLY SECURED AND IT IS PATENT. HME CHANGED PRN. VENT ALARMS CHECKED AND THEY ARE ON AND LOUD. VENT IS PLUGGED IN RED OUTLET. SUCTIONED A SMALL AMOUNT OF THICK WHITE AND YELLOWISH SECRETIONS. NO SIGNS OR SYMPTOMS OF RESPIRATORY DISTRESS NOTED AT THIS TIME. WILL CONTINUE TO MONITOR.
[2016-12-04 23:01] VITALS: BP 99/51
[2016-12-05] MEDS: DIABETICSOURCE AC 1000ML LIQUID GT PRN
[2016-12-05] MEDS: BACLOFEN 10 MG TABLET GT SCH ×3 (05:12→18:19)
[2016-12-05] MEDS: NUTRISOURCE FIBER 4 GM PACKET GT SCH ×3 (05:12→22:02)
[2016-12-05] MEDS: BLOOD SUGAR DIAGNOSTIC 1 EACH STRIP VI SCH ×3 (05:12→18:20)
[2016-12-05 08:00] VITALS: BP 105/67
[2016-12-05] MEDS: ACIDOPHILUS/BULGARICUS CHEW TAB GT SCH ×2 (08:23→20:45)
[2016-12-05] MEDS: LEVETIRACETAM 500 MG/5 ML LIQUID UDC GT SCH ×2 (08:23→20:45)
[2016-12-05] MEDS: FUROSEMIDE 40 MG/4 ML GT SCH (08:23)
[2016-12-05] MEDS: FAMOTIDINE 20 MG TABLET GT SCH ×2 (08:24→20:45)
[2016-12-05] MEDS: PHENOBARBITAL GT SCH ×2 (08:24→20:45)
[2016-12-05] MEDS: COD LIVER OIL/ZINC OXIDE OINT 113 GM TUBE TOP SCH ×2 (08:25→20:47)
[2016-12-05] MEDS: HYDROGEN PEROXIDE 3% 118 ML BOTTLE TP SCH ×2 (08:25→20:47)
[2016-12-05] MEDS: VITAMINS A AND D OINT TP SCH (08:25)
[2016-12-05] MEDS: POTASSIUM CHLORIDE 20 MEQ TAB.PRT.SR XX SCH ×2 (08:25→18:00)
[2016-12-05] MEDS: INSULIN DETEMIR 300 UNIT/3 ML CARTRIDGE SQ SCH ×2 (08:27→20:44)
--- NOTE | 2016-12-05 13:20 | NUR ---
Pharmacy Review for upcoming 12/23 IDT Meeting -VS: TEMP 97.5 HR 70 BP 99/67 -LABS: (from 11/30/16) WBC 3.7H/H 8.8/26.5PLT 90 NA 145K 3.6CL 109CO2 34BUN/SCR 26/0.9 BS 122 CA 8.5 -MEDICATION USE REVIEWED: > Pt is not on any anti-psych medication > On Phenobarbital 50mg BID, last level 21 (15-39)(06/26/16); and 23 (06/30) >On Keppra 750mg BID, Calculated CrCl 86 ml/min, last level was 43.8 (10-40) (06/16/16), renal function appropriate for dose > Pt insulin regimen: now on levemir 62 units HS, levemir 32 units AM + a custom sliding scale of regular insulin + 8units of regular insulin in addition. BS in October ranged 100-214. > PRN MED USAGE: (November) Tylenol 650mg mild-mod pain none used Tylenol 650mg for temp none used [place] 5/325mg for mod-severe pain (-) none used Artificial tears none used -NEW ORDERS NOTED: > On 11/15, levemir was increased from 60units to 62 units HS and 30units to 32units qam > Fluocinonide 0.05% cream for right arm/chest redness per staffing rn added 11/21-11/29 Recommendations > Rx recommend to repeat phenobarbital level by end of month as last level was taken on 06/30/16 (almost 6 months ago). Addendum: 12/12/16 at 1607 by ZENAIDA CONNOLLY ADM Update from today 12/12/16 IDT Meeting: > Patient was reviewed and discussed, in particular, the treatment course for redness/itchiness on patient's right arm which continues to be treated with fluocinonide per staffing rn recommendation. > Rx recommended for repeat phenobarbital level by end of month, MD ordered level. Will check level and monitor accordingly
--- NOTE | 2016-12-05 14:45 | NUR ---
SEEN BY DENISE FULLER.
--- NOTE | 2016-12-05 19:51 | NUR ---
SEEN BY DR. HICKMAN NEW ORDER CARRIED OUT FOR RT. ARM REDNESS.
--- NOTE | 2016-12-05 20:28 | NUR ---
Pt received on HT-50 vent with the following settings of AC-12, Vt-450, PEEP+5, FIO2-35%, trached with Shiley#6 DCT trach, which is in the place and secure. No s/s of respiratory distress noted. Airway care done, pt responded to physical stimuli. HME changed. Resus. bag and back up trach at bedside. Vent and alarms checked and reset.
[2016-12-05] MEDS: [UNRECOGNIZED DRUG - OTHER] GT SCH (20:45)
[2016-12-05] MEDS: FISH OIL GT SCH (20:45)
[2016-12-05] MEDS: CALCIUM CARBONATE 500 MG TAB.CHEW GT SCH (20:47)
[2016-12-05 22:56] VITALS: BP 101/47
[2016-12-06] MEDS: BLOOD SUGAR DIAGNOSTIC 1 EACH STRIP VI SCH ×4 (00:21→17:06)
[2016-12-06] MEDS: BACLOFEN 10 MG TABLET GT SCH ×4 (00:44→17:06)
[2016-12-06] MEDS: NUTRISOURCE FIBER 4 GM PACKET GT SCH ×3 (05:55→21:12)
[2016-12-06 08:01] VITALS: BP 102/50
[2016-12-06] MEDS ORDERED: FLUOCINONIDE 0.05% CREAM 30 GM TUBE TP SCH (09:00)
[2016-12-06] MEDS: VITAMINS A AND D OINT TP SCH (10:45)
[2016-12-06] MEDS: ACIDOPHILUS/BULGARICUS CHEW TAB GT SCH ×2 (10:45→21:07)
[2016-12-06] MEDS: POTASSIUM CHLORIDE 20 MEQ TAB.PRT.SR XX SCH ×2 (10:45→17:06)
[2016-12-06] MEDS: LEVETIRACETAM 500 MG/5 ML LIQUID UDC GT SCH ×2 (10:45→21:07)
[2016-12-06] MEDS: HYDROGEN PEROXIDE 3% 118 ML BOTTLE TP SCH ×2 (10:45→21:12)
[2016-12-06] MEDS: INSULIN DETEMIR 300 UNIT/3 ML CARTRIDGE SQ SCH ×2 (10:45→21:17)
[2016-12-06] MEDS: PHENOBARBITAL GT SCH ×2 (10:45→21:11)
[2016-12-06] MEDS: FUROSEMIDE 40 MG/4 ML GT SCH (10:45)
[2016-12-06] MEDS: COD LIVER OIL/ZINC OXIDE OINT 113 GM TUBE TOP SCH ×2 (10:45→21:12)
[2016-12-06] MEDS: FAMOTIDINE 20 MG TABLET GT SCH ×2 (10:45→21:11)
[2016-12-06] MEDS: INSULIN REGULAR, HUMAN 300 UNIT/3 ML VIAL SQ PRN ×2 (12:31→17:07)
--- NOTE | 2016-12-06 17:44 | NUR ---
SEEN AND EXAMINED BY DR BARNETT,NO NEW ORDERS.
[2016-12-06] MEDS: FLUOCINONIDE 0.05% CREAM 30 GM TUBE TP SCH (20:00)
[2016-12-06] MEDS: [UNRECOGNIZED DRUG - OTHER] GT SCH (21:11)
[2016-12-06] MEDS: FISH OIL GT SCH (21:11)
[2016-12-06] MEDS: CALCIUM CARBONATE 500 MG TAB.CHEW GT SCH (21:11)
[2016-12-06 22:41] VITALS: BP 112/69
[2016-12-07] MEDS: BACLOFEN 10 MG TABLET GT SCH ×5 (00:09→23:56)
[2016-12-07] MEDS: BLOOD SUGAR DIAGNOSTIC 1 EACH STRIP VI SCH ×5 (00:12→23:56)
--- NOTE | 2016-12-07 03:24 | NUR ---
PT ON CONT HT 50 VENT WITH SHILEY # [address] AND SECURED, WITH SAME CURRENT VENT SETTINGS, PT DOES ASSIST AT TIMES, SUCTIONED LIGHT PALE YELL TINGE SECRETIONS, WITH GOOD COUGH EFFORT, CHANGE HME AND CHECK CUFF, NO VENT CHANGES MADE AT THIS TIME, ALL ALARMS OK, AMBU BAG AT BEDSIDE, PT STABLE. Andi CHAKRABORTYP Addendum: 12/07/16 at 0326 by ETHEL FERGUSON RT Amended: Links added.
[2016-12-07] MEDS: NUTRISOURCE FIBER 4 GM PACKET GT SCH ×3 (05:06→21:03)
[2016-12-07 08:00] VITALS: BP 117/60
[2016-12-07] MEDS: LEVETIRACETAM 500 MG/5 ML LIQUID UDC GT SCH ×2 (09:25→21:01)
[2016-12-07] MEDS: ACIDOPHILUS/BULGARICUS CHEW TAB GT SCH ×2 (09:25→21:01)
[2016-12-07] MEDS: FUROSEMIDE 40 MG/4 ML GT SCH (09:26)
[2016-12-07] MEDS: FAMOTIDINE 20 MG TABLET GT SCH ×2 (09:28→21:02)
[2016-12-07] MEDS: VITAMINS A AND D OINT TP SCH (09:28)
[2016-12-07] MEDS: HYDROGEN PEROXIDE 3% 118 ML BOTTLE TP SCH ×2 (09:28→21:03)
[2016-12-07] MEDS: PHENOBARBITAL GT SCH ×2 (09:28→21:02)
[2016-12-07] MEDS: POTASSIUM CHLORIDE 20 MEQ TAB.PRT.SR XX SCH ×2 (09:28→17:12)
[2016-12-07] MEDS: FLUOCINONIDE 0.05% CREAM 30 GM TUBE TP SCH ×2 (09:28→17:12)
[2016-12-07] MEDS: COD LIVER OIL/ZINC OXIDE OINT 113 GM TUBE TOP SCH ×2 (09:28→21:03)
[2016-12-07] MEDS: INSULIN DETEMIR 300 UNIT/3 ML CARTRIDGE SQ SCH ×2 (09:31→20:45)
[2016-12-07] MEDS: INSULIN REGULAR, HUMAN 300 UNIT/3 ML VIAL SQ PRN ×2 (11:44→17:12)
--- NOTE | 2016-12-07 13:30 | NUR ---
SEEN AND EXAMINED BY DYLAN COLLAZO,NO NEW ORDERS NOTED.
[2016-12-07] MEDS: FISH OIL GT SCH (21:02)
[2016-12-07] MEDS: [UNRECOGNIZED DRUG - OTHER] GT SCH (21:02)
[2016-12-07] MEDS: CALCIUM CARBONATE 500 MG TAB.CHEW GT SCH (21:03)
[2016-12-07 23:03] VITALS: BP 86/35
--- NOTE | 2016-12-08 00:49 | NUR ---
PT ON CONT HT 50 VENT WITH SHILEY # [address] AND SECURED, WITH SAME CURRENT VENT SETTINGS, PT DOES ASSIST AT TIMES, SUCTIONED LIGHT PALE YELL TINGE SECRETIONS, WITH GOOD COUGH EFFORT, NO VENT CHANGES MADE AT THIS TIME, CHECK CUFF, CHANGE HME , ALL ALARMS OK, AMBU BAG AT BEDSIDE, PT STABLE, WITH ADEQUATE OXYGENATION. Andi CHAKRABORTYP Addendum: 12/08/16 at 0052 by ETHEL FERGUSON RT Amended: Links added.
[2016-12-08] MEDS: BLOOD SUGAR DIAGNOSTIC 1 EACH STRIP VI SCH ×3 (05:01→17:11)
[2016-12-08] MEDS: BACLOFEN 10 MG TABLET GT SCH ×3 (05:01→17:11)
[2016-12-08] MEDS: NUTRISOURCE FIBER 4 GM PACKET GT SCH ×3 (05:01→21:55)
[2016-12-08 08:00] VITALS: BP 125/53
[2016-12-08] MEDS: INSULIN DETEMIR 300 UNIT/3 ML CARTRIDGE SQ SCH ×2 (08:44→21:00)
[2016-12-08] MEDS: LEVETIRACETAM 500 MG/5 ML LIQUID UDC GT SCH ×2 (08:44→21:54)
[2016-12-08] MEDS: COD LIVER OIL/ZINC OXIDE OINT 113 GM TUBE TOP SCH ×2 (08:44→21:55)
[2016-12-08] MEDS: FAMOTIDINE 20 MG TABLET GT SCH ×2 (08:44→21:55)
[2016-12-08] MEDS: FUROSEMIDE 40 MG/4 ML GT SCH (08:44)
[2016-12-08] MEDS: PHENOBARBITAL GT SCH ×2 (08:44→21:55)
[2016-12-08] MEDS: ACIDOPHILUS/BULGARICUS CHEW TAB GT SCH ×2 (08:44→21:54)
[2016-12-08] MEDS: POTASSIUM CHLORIDE 20 MEQ TAB.PRT.SR XX SCH ×2 (08:45→17:11)
[2016-12-08] MEDS: FLUOCINONIDE 0.05% CREAM 30 GM TUBE TP SCH ×2 (08:45→17:11)
[2016-12-08] MEDS: HYDROGEN PEROXIDE 3% 118 ML BOTTLE TP SCH ×2 (08:45→21:55)
[2016-12-08] MEDS: VITAMINS A AND D OINT TP SCH (08:45)
[2016-12-08] MEDS: COD LIVER OIL/ZINC OXIDE OINT 113 GM TUBE TP SCH ×2 (10:52→21:55)
[2016-12-08] MEDS: INSULIN REGULAR, HUMAN 300 UNIT/3 ML VIAL SQ PRN (12:09)
--- NOTE | 2016-12-08 17:37 | NUR ---
RECEIVED AWAKE AND RESPONSIVE ON CURRENT VENT SETTINGS OF AC 12,VT 450, PEEP 5 AND FIO2 35%. NO DISTRESS OBSERVED WITH O2 SATURATION OF 98%. SUCTIONED FOR MODERATE AMOUNT OF THICK WHITISH SECRETIONS. CHANGED HUMIDIFIER FILTER.
[2016-12-08] MEDS: FISH OIL GT SCH (21:55)
[2016-12-08] MEDS: CALCIUM CARBONATE 500 MG TAB.CHEW GT SCH (21:55)
[2016-12-08] MEDS: [UNRECOGNIZED DRUG - OTHER] GT SCH (21:55)
[2016-12-08 23:09] VITALS: BP 103/62
[2016-12-09] MEDS: BACLOFEN 10 MG TABLET GT SCH ×4 (00:27→17:09)
[2016-12-09] MEDS: BLOOD SUGAR DIAGNOSTIC 1 EACH STRIP VI SCH ×4 (00:28→17:09)
[2016-12-09] MEDS: NUTRISOURCE FIBER 4 GM PACKET GT SCH ×3 (05:42→21:14)
[2016-12-09 08:01] VITALS: BP 104/53
--- NOTE | 2016-12-09 08:30 | NUR ---
Pt received on Continuous mechanical ventilation via trach, in semi fowlers position and has limited response to verbal stimuli. Pt is on [place] HT-50 vent with settings of A/C-12, VT-450, PEEP +5, FIO2-35%. Trach is a Shiley 6 DCT. Trach is patent and secure. No irritation or redness noted around stoma or trach tie. Tolerating vent settings well. SpO2-98%. No signs or symptoms of respiratory distress noted. HME changed. PPE used. Vent alarm parameters checked, on and audible. Vent plugged into red emergency outlet. Bag/valve/mask and back up trach bedside. Will continue to monitor.
[2016-12-09] MEDS: ACIDOPHILUS/BULGARICUS CHEW TAB GT SCH ×2 (09:24→21:10)
[2016-12-09] MEDS: LEVETIRACETAM 500 MG/5 ML LIQUID UDC GT SCH ×2 (09:25→21:12)
[2016-12-09] MEDS: FUROSEMIDE 40 MG/4 ML GT SCH (09:27)
[2016-12-09] MEDS: PHENOBARBITAL GT SCH ×2 (09:27→21:13)
[2016-12-09] MEDS: COD LIVER OIL/ZINC OXIDE OINT 113 GM TUBE TP SCH ×2 (09:28→21:13)
[2016-12-09] MEDS: FLUOCINONIDE 0.05% CREAM 30 GM TUBE TP SCH ×2 (09:28→16:28)
[2016-12-09] MEDS: VITAMINS A AND D OINT TP SCH (09:28)
[2016-12-09] MEDS: HYDROGEN PEROXIDE 3% 118 ML BOTTLE TP SCH ×2 (09:28→21:14)
[2016-12-09] MEDS: COD LIVER OIL/ZINC OXIDE OINT 113 GM TUBE TOP SCH ×2 (09:28→21:13)
[2016-12-09] MEDS: FAMOTIDINE 20 MG TABLET GT SCH ×2 (09:28→21:13)
[2016-12-09] MEDS: INSULIN DETEMIR 300 UNIT/3 ML CARTRIDGE SQ SCH ×2 (09:31→21:09)
[2016-12-09] MEDS: POTASSIUM CHLORIDE 20 MEQ TAB.PRT.SR XX SCH ×2 (09:33→16:28)
[2016-12-09] MEDS: INSULIN REGULAR, HUMAN 300 UNIT/3 ML VIAL SQ PRN ×2 (13:24→17:10)
--- NOTE | 2016-12-09 20:47 | NUR ---
Received pt on HT-50 vent with the following settings of AC-12, Vt-450, PEEP+5, FIO2-35%, trached with Shiley#6 DCT trach, which is in the place and secure. No respiratory distress noted. Airway care done, pt responded to physical stimuli. HME and Sx Juarez changed. Resus. bag and back up trach at bedside. Vent and alarms on and audible.
[2016-12-09] MEDS: CALCIUM CARBONATE 500 MG TAB.CHEW GT SCH (21:13)
[2016-12-09] MEDS: [UNRECOGNIZED DRUG - OTHER] GT SCH (21:13)
[2016-12-09] MEDS: FISH OIL GT SCH (21:13)
[2016-12-10] MEDS: NUTRISOURCE FIBER 4 GM PACKET GT SCH ×3 (06:00→22:11)
[2016-12-10] MEDS: BACLOFEN 10 MG TABLET GT SCH ×4 (06:00→17:01)
[2016-12-10] MEDS: BLOOD SUGAR DIAGNOSTIC 1 EACH STRIP VI SCH ×4 (06:00→17:01)
[2016-12-10 08:01] VITALS: BP 93/58
[2016-12-10] MEDS: LEVETIRACETAM 500 MG/5 ML LIQUID UDC GT SCH ×2 (08:23→20:25)
[2016-12-10] MEDS: ACIDOPHILUS/BULGARICUS CHEW TAB GT SCH ×2 (08:23→20:25)
[2016-12-10] MEDS: FUROSEMIDE 40 MG/4 ML GT SCH (08:24)
[2016-12-10] MEDS: FAMOTIDINE 20 MG TABLET GT SCH ×2 (08:24→20:27)
[2016-12-10] MEDS: PHENOBARBITAL GT SCH ×2 (08:24→20:25)
[2016-12-10] MEDS: COD LIVER OIL/ZINC OXIDE OINT 113 GM TUBE TP SCH ×2 (08:27→20:29)
[2016-12-10] MEDS: POTASSIUM CHLORIDE 20 MEQ TAB.PRT.SR XX SCH ×2 (08:27→17:01)
[2016-12-10] MEDS: COD LIVER OIL/ZINC OXIDE OINT 113 GM TUBE TOP SCH ×2 (08:27→20:29)
[2016-12-10] MEDS: VITAMINS A AND D OINT TP SCH (08:27)
[2016-12-10] MEDS: FLUOCINONIDE 0.05% CREAM 30 GM TUBE TP SCH ×2 (08:27→17:01)
[2016-12-10] MEDS: HYDROGEN PEROXIDE 3% 118 ML BOTTLE TP SCH ×2 (08:27→20:29)
[2016-12-10] MEDS: INSULIN DETEMIR 300 UNIT/3 ML CARTRIDGE SQ SCH ×2 (08:27→20:29)
--- NOTE | 2016-12-10 08:46 | NUR ---
RECEIVED PT ON HT-50 VENT. CURRENT VENT SETTINGS ARE AC 12, VT 450, PEEP +5, FIO2 35%. NO CHANGES MADE ON VENTILATOR AT THIS TIME. VENTILATOR ALARMS CHECKED AND ARE FUNCTIONING PROPERLY. TRACH IS PATENT AND SECURED WITH FOAM TRACH TIES. HME CHANGED. SUCTION DONE. SUCTIONED A MODERATE AMOUNT OF THICK, YELLOW SECRETIONS. CUFF REINFLATED DUE TO LEAK. AMBU BAG AND BACK UP TRACH CURRENTLY AT BEDSIDE. VENT IS PLUGGED INTO RED EMERGENCY OUTLET. WILL CONTINUE TO MONITOR PT FOR REMAINDER OF SHIFT.
[2016-12-10] MEDS: INSULIN REGULAR, HUMAN 300 UNIT/3 ML VIAL SQ PRN ×2 (12:30→17:02)
--- NOTE | 2016-12-10 19:12 | NUR ---
Resident was endorsed on Continuous Mechanical Ventilation with ordered vent settings of AC 12 VT 450 PEEP 5 FIO2 35%. No signs or symptoms of respiratory distress noted at this time. She is trached with a shiley #6 DCT; WIRE STRANDER used for cuff inflation. HME was changed without complications. Alarm parameters assessed and are on/audible. Ambubag and spare trach are at bedside.
[2016-12-10] MEDS: [UNRECOGNIZED DRUG - OTHER] GT SCH (20:25)
[2016-12-10] MEDS: FISH OIL GT SCH (20:25)
[2016-12-10] MEDS: CALCIUM CARBONATE 500 MG TAB.CHEW GT SCH (20:27)
[2016-12-10 22:00] VITALS: BP 97/43
[2016-12-11] MEDS: BLOOD SUGAR DIAGNOSTIC 1 EACH STRIP VI SCH ×4 (00:04→17:43)
[2016-12-11] MEDS: BACLOFEN 10 MG TABLET GT SCH ×4 (00:04→17:17)
[2016-12-11] MEDS: INSULIN REGULAR, HUMAN 300 UNIT/3 ML VIAL SQ PRN ×2 (00:10→05:59)
[2016-12-11] MEDS: DIABETICSOURCE AC 1000ML LIQUID GT PRN (01:32)
[2016-12-11] MEDS: NUTRISOURCE FIBER 4 GM PACKET GT SCH ×3 (05:19→21:03)
[2016-12-11 08:00] VITALS: BP 91/52
[2016-12-11] MEDS: LEVETIRACETAM 500 MG/5 ML LIQUID UDC GT SCH ×2 (08:34→21:01)
[2016-12-11] MEDS: ACIDOPHILUS/BULGARICUS CHEW TAB GT SCH ×2 (08:34→21:02)
[2016-12-11] MEDS: HYDROGEN PEROXIDE 3% 118 ML BOTTLE TP SCH ×2 (08:35→21:03)
[2016-12-11] MEDS: FUROSEMIDE 40 MG/4 ML GT SCH (08:35)
[2016-12-11] MEDS: POTASSIUM CHLORIDE 20 MEQ TAB.PRT.SR XX SCH ×2 (08:35→17:17)
[2016-12-11] MEDS: COD LIVER OIL/ZINC OXIDE OINT 113 GM TUBE TP SCH ×2 (08:35→21:03)
[2016-12-11] MEDS: COD LIVER OIL/ZINC OXIDE OINT 113 GM TUBE TOP SCH ×2 (08:35→21:03)
[2016-12-11] MEDS: VITAMINS A AND D OINT TP SCH (08:35)
[2016-12-11] MEDS: PHENOBARBITAL GT SCH ×2 (08:35→21:02)
[2016-12-11] MEDS: FAMOTIDINE 20 MG TABLET GT SCH ×2 (08:35→21:02)
[2016-12-11] MEDS: FLUOCINONIDE 0.05% CREAM 30 GM TUBE TP SCH ×2 (08:35→17:17)
[2016-12-11] MEDS: INSULIN DETEMIR 300 UNIT/3 ML CARTRIDGE SQ SCH ×2 (08:36→21:01)
--- NOTE | 2016-12-11 13:30 | NUR ---
SEEN AND EXAMINED BY DYLAN COLLAZO,NO NEW ORDERS.
--- NOTE | 2016-12-11 20:20 | NUR ---
Pt received on Continuous mechanical ventilation via trach, in semi fowlers position and has limited response to verbal stimuli. Pt is on [place] HT-50 vent with settings of A/C-12, VT-450, PEEP +5, FIO2-35%. Trach is a Shiley 6 DCT. Trach is patent and secure. No irritation or redness noted around stoma or trach tie. Tolerating vent settings well. SpO2-97%. No signs or symptoms of respiratory distress noted. HME changed. PPE used. Vent alarm parameters checked, on and audible. Vent plugged into red emergency outlet. Bag/valve/mask and back up trach bedside. Will continue to monitor.
[2016-12-11] MEDS: [UNRECOGNIZED DRUG - OTHER] GT SCH (21:03)
[2016-12-11] MEDS: CALCIUM CARBONATE 500 MG TAB.CHEW GT SCH (21:03)
[2016-12-11] MEDS: FISH OIL GT SCH (21:03)
[2016-12-12] MEDS: BACLOFEN 10 MG TABLET GT SCH ×4 (00:10→17:35)
[2016-12-12] MEDS: BLOOD SUGAR DIAGNOSTIC 1 EACH STRIP VI SCH ×4 (00:12→17:41)
[2016-12-12] MEDS: NUTRISOURCE FIBER 4 GM PACKET GT SCH ×3 (05:04→22:03)
[2016-12-12] MEDS: DIABETICSOURCE AC 1000ML LIQUID GT PRN (07:08)
[2016-12-12 08:00] VITALS: BP 102/57
[2016-12-12] MEDS: INSULIN DETEMIR 300 UNIT/3 ML CARTRIDGE SQ SCH ×2 (08:46→20:01)
[2016-12-12] MEDS: ACIDOPHILUS/BULGARICUS CHEW TAB GT SCH ×2 (08:46→20:01)
[2016-12-12] MEDS: LEVETIRACETAM 500 MG/5 ML LIQUID UDC GT SCH ×2 (08:46→20:01)
[2016-12-12] MEDS: PHENOBARBITAL GT SCH ×2 (08:48→20:01)
[2016-12-12] MEDS: FUROSEMIDE 40 MG/4 ML GT SCH (08:48)
[2016-12-12] MEDS: FAMOTIDINE 20 MG TABLET GT SCH ×2 (08:48→20:01)
[2016-12-12] MEDS: COD LIVER OIL/ZINC OXIDE OINT 113 GM TUBE TP SCH ×2 (08:48→20:02)
[2016-12-12] MEDS: COD LIVER OIL/ZINC OXIDE OINT 113 GM TUBE TOP SCH ×2 (08:48→20:01)
[2016-12-12] MEDS: FLUOCINONIDE 0.05% CREAM 30 GM TUBE TP SCH ×2 (08:49→17:33)
[2016-12-12] MEDS: HYDROGEN PEROXIDE 3% 118 ML BOTTLE TP SCH ×2 (08:49→20:02)
[2016-12-12] MEDS: VITAMINS A AND D OINT TP SCH (08:49)
[2016-12-12] MEDS: POTASSIUM CHLORIDE 20 MEQ TAB.PRT.SR XX SCH ×2 (08:49→17:33)
--- NOTE | 2016-12-12 10:00 | NUR ---
SEEN BY DENISE FULLER.
--- NOTE | 2016-12-12 15:43 | NUR ---
INTERDISCIPLINARY PLAN OF CARE CONFERENCE was held today. Patient's family was invited to the meeting, but they were unable to attend. Dr. Gilbert and the Interdisciplinary Team reviewed the current plan of care in details. RN provided updates on patient's medical condition, labs, and recent changes in medications. See RN IDT conference notes. See also all other disciplines IDT notes and physician's progress notes for additional details.
--- NOTE | 2016-12-12 19:18 | NUR ---
Pt received on HT-50 ventilator with current settings of AC 12, VT 450, Peep +5, FiO2 35%. Pt has a Shiley 6 DCT trach which is secured with foam ties and is patent. No signs of respiratory distress noted at this time, pt tolerating vent settings well. Changed HME. Suctioned pt with small amount of pale-yellowish secretions. Vent alarms functioning and audible. Ambu-bag and back-up trach is at bedside. Will continue to monitor pt throughout shift.
[2016-12-12] MEDS: FISH OIL GT SCH (20:01)
[2016-12-12] MEDS: [UNRECOGNIZED DRUG - OTHER] GT SCH (20:01)
[2016-12-12] MEDS: CALCIUM CARBONATE 500 MG TAB.CHEW GT SCH (20:01)
[2016-12-12 23:09] VITALS: BP 96/66
[2016-12-13] MEDS: BLOOD SUGAR DIAGNOSTIC 1 EACH STRIP VI SCH ×5 (00:37→23:57)
[2016-12-13] MEDS: BACLOFEN 10 MG TABLET GT SCH ×5 (00:37→23:56)
[2016-12-13] MEDS: INSULIN REGULAR, HUMAN 300 UNIT/3 ML VIAL SQ PRN ×2 (00:46→17:57)
[2016-12-13] MEDS: NUTRISOURCE FIBER 4 GM PACKET GT SCH ×3 (05:32→21:34)
[2016-12-13] MEDS: DIABETICSOURCE AC 1000ML LIQUID GT PRN (05:54)
[2016-12-13] MEDS: COD LIVER OIL/ZINC OXIDE OINT 113 GM TUBE TOP SCH ×2 (09:00→20:25)
[2016-12-13] MEDS: VITAMINS A AND D OINT TP SCH (09:00)
[2016-12-13] MEDS: FLUOCINONIDE 0.05% CREAM 30 GM TUBE TP SCH ×2 (09:00→17:45)
[2016-12-13] MEDS: HYDROGEN PEROXIDE 3% 118 ML BOTTLE TP SCH ×2 (09:00→20:25)
[2016-12-13] MEDS: PHENOBARBITAL GT SCH ×2 (09:00→20:24)
[2016-12-13] MEDS: ACIDOPHILUS/BULGARICUS CHEW TAB GT SCH ×2 (09:00→20:24)
[2016-12-13] MEDS: FAMOTIDINE 20 MG TABLET GT SCH ×2 (09:00→20:24)
[2016-12-13] MEDS: LEVETIRACETAM 500 MG/5 ML LIQUID UDC GT SCH ×2 (09:00→20:24)
[2016-12-13] MEDS: FUROSEMIDE 40 MG/4 ML GT SCH (09:00)
[2016-12-13] MEDS: INSULIN DETEMIR 300 UNIT/3 ML CARTRIDGE SQ SCH ×2 (09:00→20:23)
[2016-12-13] MEDS: COD LIVER OIL/ZINC OXIDE OINT 113 GM TUBE TP SCH ×2 (09:00→20:25)
[2016-12-13] MEDS: POTASSIUM CHLORIDE 20 MEQ TAB.PRT.SR XX SCH ×2 (09:00→17:45)
[2016-12-13 09:28] VITALS: BP 96/51
--- NOTE | 2016-12-13 16:00 | NUR ---
SEEN BY DR. ANIBAL FULLER.
[2016-12-13 20:00] VITALS: BP 99/42
[2016-12-13] MEDS: FISH OIL GT SCH (20:24)
[2016-12-13] MEDS: [UNRECOGNIZED DRUG - OTHER] GT SCH (20:24)
[2016-12-13] MEDS: CALCIUM CARBONATE 500 MG TAB.CHEW GT SCH (20:24)
[2016-12-14] MEDS: BLOOD SUGAR DIAGNOSTIC 1 EACH STRIP VI SCH ×3 (05:07→17:24)
[2016-12-14] MEDS: BACLOFEN 10 MG TABLET GT SCH ×3 (05:07→17:21)
[2016-12-14] MEDS: NUTRISOURCE FIBER 4 GM PACKET GT SCH ×3 (05:07→22:05)
[2016-12-14 08:00] VITALS: BP 108/63
--- NOTE | 2016-12-14 08:00 | NUR ---
Seen by Kasey COLLAZO with no new order.
[2016-12-14] MEDS: ACIDOPHILUS/BULGARICUS CHEW TAB GT SCH ×2 (08:32→20:25)
[2016-12-14] MEDS: INSULIN DETEMIR 300 UNIT/3 ML CARTRIDGE SQ SCH ×2 (08:32→20:37)
[2016-12-14] MEDS: LEVETIRACETAM 500 MG/5 ML LIQUID UDC GT SCH ×2 (08:33→20:25)
[2016-12-14] MEDS: COD LIVER OIL/ZINC OXIDE OINT 113 GM TUBE TOP SCH ×2 (08:34→20:33)
[2016-12-14] MEDS: FAMOTIDINE 20 MG TABLET GT SCH ×2 (08:34→21:16)
[2016-12-14] MEDS: PHENOBARBITAL GT SCH ×2 (08:34→20:32)
[2016-12-14] MEDS: FUROSEMIDE 40 MG/4 ML GT SCH (08:34)
[2016-12-14] MEDS: COD LIVER OIL/ZINC OXIDE OINT 113 GM TUBE TP SCH ×2 (08:34→20:33)
[2016-12-14] MEDS: HYDROGEN PEROXIDE 3% 118 ML BOTTLE TP SCH ×2 (08:34→20:33)
[2016-12-14] MEDS: POTASSIUM CHLORIDE 20 MEQ TAB.PRT.SR XX SCH ×2 (08:35→17:21)
[2016-12-14] MEDS: VITAMINS A AND D OINT TP SCH (08:35)
[2016-12-14] MEDS: FLUOCINONIDE 0.05% CREAM 30 GM TUBE TP SCH ×2 (08:35→17:21)
[2016-12-14] MEDS: INSULIN REGULAR, HUMAN 300 UNIT/3 ML VIAL SQ PRN ×2 (12:28→17:26)
--- NOTE | 2016-12-14 20:20 | NUR ---
Pt received on Continuous mechanical ventilation via trach, in semi fowlers position and has limited response to verbal stimuli. Pt is on [place] HT-50 vent with settings of A/C-12, VT-450, PEEP +5, FIO2-35%. Trach is a Shiley 6 DCT. Minimal leak technique used to assess cuff inflation. Trach is patent and secure. No irritation or redness noted around stoma or trach tie. Tolerating vent settings well. SpO2-98%. Sxn'd small amts of whitish/yellow secretions. No signs or symptoms of respiratory distress noted. HME changed. PPE used. Vent alarm parameters checked, on and audible. Vent plugged into red emergency outlet. Bag/valve/mask and back up trach bedside. Will continue to monitor.
[2016-12-14] MEDS: [UNRECOGNIZED DRUG - OTHER] GT SCH (20:26)
[2016-12-14] MEDS: FISH OIL GT SCH (20:26)
[2016-12-14] MEDS: CALCIUM CARBONATE 500 MG TAB.CHEW GT SCH (20:33)
[2016-12-14 22:56] VITALS: BP 115/53
[2016-12-15] MEDS: BLOOD SUGAR DIAGNOSTIC 1 EACH STRIP VI SCH ×4 (00:18→17:07)
[2016-12-15] MEDS: NUTRISOURCE FIBER 4 GM PACKET GT SCH ×3 (05:40→21:10)
[2016-12-15] MEDS: BACLOFEN 10 MG TABLET GT SCH ×4 (05:40→17:07)
[2016-12-15 08:00] VITALS: BP 97/52
[2016-12-15] MEDS: HYDROGEN PEROXIDE 3% 118 ML BOTTLE TP SCH ×2 (09:00→21:10)
[2016-12-15] MEDS: COD LIVER OIL/ZINC OXIDE OINT 113 GM TUBE TP SCH ×2 (09:00→21:10)
[2016-12-15] MEDS: COD LIVER OIL/ZINC OXIDE OINT 113 GM TUBE TOP SCH ×2 (09:00→21:10)
[2016-12-15] MEDS: VITAMINS A AND D OINT TP SCH (09:00)
[2016-12-15] MEDS: FLUOCINONIDE 0.05% CREAM 30 GM TUBE TP SCH ×2 (09:00→16:42)
[2016-12-15] MEDS: POTASSIUM CHLORIDE 20 MEQ TAB.PRT.SR XX SCH ×2 (09:00→16:42)
[2016-12-15] MEDS: PHENOBARBITAL GT SCH ×2 (09:59→21:28)
[2016-12-15] MEDS: ACIDOPHILUS/BULGARICUS CHEW TAB GT SCH ×2 (09:59→21:08)
[2016-12-15] MEDS: FAMOTIDINE 20 MG TABLET GT SCH ×2 (09:59→21:10)
[2016-12-15] MEDS: FUROSEMIDE 40 MG/4 ML GT SCH (09:59)
[2016-12-15] MEDS: LEVETIRACETAM 500 MG/5 ML LIQUID UDC GT SCH ×2 (09:59→21:08)
[2016-12-15] MEDS: INSULIN DETEMIR 300 UNIT/3 ML CARTRIDGE SQ SCH ×2 (10:00→21:27)
[2016-12-15] MEDS: INSULIN REGULAR, HUMAN 300 UNIT/3 ML VIAL SQ PRN ×2 (11:15→17:08)
[2016-12-15] MEDS: DIABETICSOURCE AC 1000ML LIQUID GT PRN (11:16)
--- NOTE | 2016-12-15 17:30 | NUR ---
RECEIVED ON CURRENT MECHANICAL VENTILATOR WITH SETTINGS OF AC 12,VT 450, PEEP 5 AND FIO2 35%. NO DISTRESS OBSERVED WITH O2 SATURATION OF 98%. SUCTIONED FOR MODERATE AMOUNT OF THICK WHITISH SECRETIONS. CHANGED HUMIDIFIER FILTER.
[2016-12-15] MEDS: FISH OIL GT SCH (21:09)
[2016-12-15] MEDS: [UNRECOGNIZED DRUG - OTHER] GT SCH (21:09)
[2016-12-15] MEDS: CALCIUM CARBONATE 500 MG TAB.CHEW GT SCH (21:10)
[2016-12-15 22:23] VITALS: BP_SYST 73; BP_SYST 98; BP_DIAS 32; BP_DIAS 62
[2016-12-16] MEDS: BLOOD SUGAR DIAGNOSTIC 1 EACH STRIP VI SCH ×4 (00:07→17:17)
[2016-12-16] MEDS: BACLOFEN 10 MG TABLET GT SCH ×4 (00:07→17:11)
[2016-12-16] MEDS: INSULIN REGULAR, HUMAN 300 UNIT/3 ML VIAL SQ PRN ×4 (00:09→17:19)
--- NOTE | 2016-12-16 02:37 | NUR ---
PT ON CONT HT 50 VENT WITH SHILEY # [address] AND SECURED, WITH SAME CURRENT VENT SETTINGS, WITH GOOD COUGH EFFORT, SUCTIONED VERY LIGHT PALE YELL TINGE SECRETIONS, CHECK CUFF, CHANGE HME, ALL ALARMS OK, AMBU BAG AT BEDSIDE, NO VENT CHANGES MADE AT THIS TIME, PT STABLE, WITH NO SIGNS OF RESP. DISTRESS NOTED.Andi CHAKRABORTYP Addendum: 12/16/16 at 0239 by ETHEL FERGUSON RT Amended: Links added.
[2016-12-16] MEDS: NUTRISOURCE FIBER 4 GM PACKET GT SCH ×3 (05:16→21:42)
--- NOTE | 2016-12-16 06:55 | NUR ---
Noted with gt site redness, cleansed and initiated in-house treatment, kept skin clean and dry.
[2016-12-16 08:03] VITALS: BP 113/63
[2016-12-16] MEDS: ACIDOPHILUS/BULGARICUS CHEW TAB GT SCH ×2 (08:22→21:42)
[2016-12-16] MEDS: LEVETIRACETAM 500 MG/5 ML LIQUID UDC GT SCH ×2 (08:23→21:42)
[2016-12-16] MEDS: FUROSEMIDE 40 MG/4 ML GT SCH (08:24)
[2016-12-16] MEDS: PHENOBARBITAL GT SCH ×2 (08:24→21:42)
[2016-12-16] MEDS: COD LIVER OIL/ZINC OXIDE OINT 113 GM TUBE TOP SCH ×2 (08:26→21:41)
[2016-12-16] MEDS: FAMOTIDINE 20 MG TABLET GT SCH ×2 (08:26→21:42)
[2016-12-16] MEDS: HYDROGEN PEROXIDE 3% 118 ML BOTTLE TP SCH ×2 (08:28→21:38)
[2016-12-16] MEDS: NYSTATIN/TRIAMCINOLONE CREAM 15 GM TUBE TOP SCH ×2 (08:28→21:41)
[2016-12-16] MEDS: COD LIVER OIL/ZINC OXIDE OINT 113 GM TUBE TP SCH ×2 (08:28→21:42)
[2016-12-16] MEDS: FLUOCINONIDE 0.05% CREAM 30 GM TUBE TP SCH (08:28)
[2016-12-16] MEDS: POTASSIUM CHLORIDE 20 MEQ TAB.PRT.SR XX SCH ×2 (08:29→17:11)
[2016-12-16] MEDS: VITAMINS A AND D OINT TP SCH (08:29)
[2016-12-16] MEDS: INSULIN DETEMIR 300 UNIT/3 ML CARTRIDGE SQ SCH ×2 (08:33→21:39)
--- NOTE | 2016-12-16 09:00 | NUR ---
SEEN AND EXAMINED BY ROXIE ALLISONO.
[2016-12-16] MEDS: FISH OIL GT SCH (21:42)
[2016-12-16] MEDS: [UNRECOGNIZED DRUG - OTHER] GT SCH (21:42)
[2016-12-16] MEDS: CALCIUM CARBONATE 500 MG TAB.CHEW GT SCH (21:42)
[2016-12-16 22:49] VITALS: BP 91/47
[2016-12-17] MEDS: BACLOFEN 10 MG TABLET GT SCH ×4 (00:12→17:15)
[2016-12-17] MEDS: BLOOD SUGAR DIAGNOSTIC 1 EACH STRIP VI SCH ×4 (00:12→17:13)
--- NOTE | 2016-12-17 01:11 | NUR ---
PT ON CONT HT 50 VENT WITH SHILEY #[address] AND SECURED, WITH SAME CURRENT VENT SETTINGS, WITH GOOD COUGH EFFORT, SUCTIONED VERY LIGHT PALE YELL TINGE SECRETIONS, PT DOES ASSIST AT TIMES, CHECK CUFF, CHANGE HME AND PASCUAL, ALL ALARMS OK, AMBU BAG AT BEDSIDE, NO SOB NOTED, PT STABLE .Andi CHAKRABORTYP Addendum: 12/17/16 at 0112 by ETHEL FERGUSON RT Amended: Links added.
[2016-12-17] MEDS: NUTRISOURCE FIBER 4 GM PACKET GT SCH ×3 (06:20→21:24)
[2016-12-17 08:02] VITALS: BP 95/46
[2016-12-17] MEDS: VITAMINS A AND D OINT TP SCH (09:00)
[2016-12-17] MEDS: COD LIVER OIL/ZINC OXIDE OINT 113 GM TUBE TOP SCH ×2 (09:00→21:24)
[2016-12-17] MEDS: COD LIVER OIL/ZINC OXIDE OINT 113 GM TUBE TP SCH ×2 (09:00→21:24)
[2016-12-17] MEDS: NYSTATIN/TRIAMCINOLONE CREAM 15 GM TUBE TOP SCH (09:00)
[2016-12-17] MEDS: HYDROGEN PEROXIDE 3% 118 ML BOTTLE TP SCH ×2 (10:00→21:24)
--- NOTE | 2016-12-17 11:15 | NUR ---
NOTED REDNESS ON GT SITE,TENDER AND WARM TO TOUCH,WITH SOME BLEEDING AND PUS ,DR RICO LOT[employer] SALES CLERK FOR DR BARNETT AWARE ,WITH NEW ORDERS NOTED,LEFT MESSAGE TO CARIDAD RUIZ,PT'S FATHER AND AZAM RUIZPT'S BROTHER.
[2016-12-17] MEDS ORDERED: DIATR MEGLU/DIATRIZOATE SODIUM 30 ML SOLUTION ONE (11:57)
[2016-12-17 12:04] LABS: BASOPHILS % (AUTO) 0.8 % (0.0-2.0); EOSINOPHILS # (AUTO) 0.2 K/uL (0.0-0.7); EOSINOPHILS % (AUTO) 5.1 % (0.0-7.0); HEMATOCRIT 25.4 % (37-47); HEMOGLOBIN 8.3 G/DL (12.0-16.0); LYMPHOCYTES # (AUTO) 1.9 K/UL (0.8-4.8); LYMPHOCYTES % (AUTO) 38.7 % (20.5-51.5); MEAN CORPUSCULAR HEMOGLOBIN 32.8 UUG (27.0-31.0); MEAN CORPUSCULAR HGB CONC 33 g/dL (32.0-37.0); MONOCYTES # (AUTO) 0.3 K/UL (0.1-1.30); MONOCYTES % (AUTO) 5.9 % (0.0-11.0); NEUTROPHILS # (AUTO) 2.5 K/UL (1.8-8.9); NEUTROPHILS % (AUTO) 49.5 % (38.5-71.5); RED BLOOD CELL COUNT(AUTO) 2.55 MIL/UL (4.2-5.4)
[2016-12-17] MEDS: INSULIN REGULAR, HUMAN 300 UNIT/3 ML VIAL SQ PRN ×2 (12:05→17:13)
[2016-12-17 12:14] LABS: PLATELET COUNT (AUTO) 148 K/UL (150-450); WHITE BLOOD COUNT (AUTO) 4.9 K/UL (4.0-11.2)
[2016-12-17] MEDS: LEVETIRACETAM 500 MG/5 ML LIQUID UDC GT SCH ×2 (12:40→21:23)
[2016-12-17] MEDS: FAMOTIDINE 20 MG TABLET GT SCH ×2 (12:40→21:23)
[2016-12-17] MEDS: FUROSEMIDE 40 MG/4 ML GT SCH (12:40)
[2016-12-17] MEDS: ACIDOPHILUS/BULGARICUS CHEW TAB GT SCH ×2 (12:40→21:23)
[2016-12-17] MEDS: INSULIN DETEMIR 300 UNIT/3 ML CARTRIDGE SQ SCH ×2 (12:40→21:27)
[2016-12-17] MEDS: PHENOBARBITAL GT SCH ×2 (12:40→21:23)
[2016-12-17] MEDS: POTASSIUM CHLORIDE 20 MEQ TAB.PRT.SR XX SCH ×2 (12:40→17:15)
[2016-12-17] MEDS: LEVOFLOXACIN 500 MG TABLET GT SCH (13:05)
--- NOTE | 2016-12-17 13:07 | NUR ---
KUB WITH GASTROGRAFIN TO CHECK GT SITE DONE,NGT INSERTED,ZOSYN 3.375 MG DISCONTINUE,TO START LEVAQUIN 500 MG DAILY X 7 DAYS.
[2016-12-17 13:12] LABS: MAGNESIUM 2.5 mg/dL (1.8-2.4); PHOSPHOROUS 2.7 mg/dL (2.5-4.9); POTASSIUM 3.8 mmol/L (3.5-5.1)
--- NOTE | 2016-12-17 16:00 | NUR ---
LEFT MESSAGE TO DR HAMPTON,REGARDING LABS RESULTS AND KUB RESULT,SPOKE TO
[2016-12-17 20:20] VITALS: BP 103/54
[2016-12-17] MEDS: [UNRECOGNIZED DRUG - OTHER] GT SCH (21:23)
[2016-12-17] MEDS: FISH OIL GT SCH (21:23)
[2016-12-17] MEDS: CALCIUM CARBONATE 500 MG TAB.CHEW GT SCH (21:24)
[2016-12-18] MEDS: BACLOFEN 10 MG TABLET GT SCH ×5 (05:26→23:23)
[2016-12-18] MEDS: NUTRISOURCE FIBER 4 GM PACKET GT SCH ×3 (05:26→22:41)
[2016-12-18] MEDS: BLOOD SUGAR DIAGNOSTIC 1 EACH STRIP VI SCH ×5 (05:26→23:47)
[2016-12-18] MEDS: INSULIN REGULAR, HUMAN 300 UNIT/3 ML VIAL SQ PRN ×4 (05:28→23:50)
[2016-12-18 08:00] VITALS: BP 108/50
[2016-12-18] MEDS: LEVETIRACETAM 500 MG/5 ML LIQUID UDC GT SCH ×2 (08:53→20:43)
[2016-12-18] MEDS: ACIDOPHILUS/BULGARICUS CHEW TAB GT SCH ×2 (08:53→20:43)
[2016-12-18] MEDS: LEVOFLOXACIN 500 MG TABLET GT SCH (08:54)
[2016-12-18] MEDS: FAMOTIDINE 20 MG TABLET GT SCH ×2 (08:55→20:44)
[2016-12-18] MEDS: COD LIVER OIL/ZINC OXIDE OINT 113 GM TUBE TOP SCH ×2 (08:55→20:46)
[2016-12-18] MEDS: HYDROGEN PEROXIDE 3% 118 ML BOTTLE TP SCH ×2 (08:55→20:47)
[2016-12-18] MEDS: COD LIVER OIL/ZINC OXIDE OINT 113 GM TUBE TP SCH ×2 (08:55→20:47)
[2016-12-18] MEDS: FUROSEMIDE 40 MG/4 ML GT SCH (08:55)
[2016-12-18] MEDS: POTASSIUM CHLORIDE 20 MEQ TAB.PRT.SR XX SCH ×2 (08:55→18:00)
[2016-12-18] MEDS: PHENOBARBITAL GT SCH ×2 (08:55→20:45)
[2016-12-18] MEDS: VITAMINS A AND D OINT TP SCH (08:55)
[2016-12-18] MEDS: INSULIN DETEMIR 300 UNIT/3 ML CARTRIDGE SQ SCH ×2 (08:56→21:00)
[2016-12-18] MEDS: NEOMY/BACITRA/POLYMYXIN B OINT UD PACKET TP SCH ×2 (12:44→20:47)
--- NOTE | 2016-12-18 15:46 | NUR ---
Seen and examined by VALE Patel for Dr. Jorgensen. Notified PA of the recent G.tube site abscess and the order to hold the use of the G.tube until primary doctor reevaluate G.tube site. New orders given for GI consult; called and left message for Dr. Lane for the GI consult.
[2016-12-18] MEDS: FISH OIL GT SCH (20:44)
[2016-12-18] MEDS: [UNRECOGNIZED DRUG - OTHER] GT SCH (20:44)
[2016-12-18] MEDS: CALCIUM CARBONATE 500 MG TAB.CHEW GT SCH (20:45)
[2016-12-18 20:49] VITALS: BP 105/61
[2016-12-18] MEDS: DIABETICSOURCE AC 1000ML LIQUID NG PRN (22:42)
[2016-12-19] MEDS: BACLOFEN 10 MG TABLET GT SCH ×3 (05:43→17:55)
[2016-12-19] MEDS: BLOOD SUGAR DIAGNOSTIC 1 EACH STRIP VI SCH ×3 (05:43→17:55)
[2016-12-19] MEDS: NUTRISOURCE FIBER 4 GM PACKET GT SCH ×3 (05:43→21:27)
[2016-12-19] MEDS: INSULIN REGULAR, HUMAN 300 UNIT/3 ML VIAL SQ PRN (05:45)
[2016-12-19 08:00] VITALS: BP 101/59
[2016-12-19] MEDS: INSULIN DETEMIR 300 UNIT/3 ML CARTRIDGE SQ SCH ×2 (08:53→21:26)
[2016-12-19] MEDS: ACIDOPHILUS/BULGARICUS CHEW TAB GT SCH ×2 (08:54→21:26)
[2016-12-19] MEDS: LEVOFLOXACIN 500 MG TABLET GT SCH (08:56)
[2016-12-19] MEDS: LEVETIRACETAM 500 MG/5 ML LIQUID UDC GT SCH ×2 (08:56→21:26)
[2016-12-19] MEDS: FUROSEMIDE 40 MG/4 ML GT SCH (08:59)
[2016-12-19] MEDS: PHENOBARBITAL GT SCH ×2 (08:59→21:26)
[2016-12-19] MEDS: COD LIVER OIL/ZINC OXIDE OINT 113 GM TUBE TP SCH ×2 (08:59→21:26)
[2016-12-19] MEDS: HYDROGEN PEROXIDE 3% 118 ML BOTTLE TP SCH ×2 (08:59→21:27)
[2016-12-19] MEDS: COD LIVER OIL/ZINC OXIDE OINT 113 GM TUBE TOP SCH ×2 (08:59→21:26)
[2016-12-19] MEDS: FAMOTIDINE 20 MG TABLET GT SCH ×2 (08:59→21:26)
[2016-12-19] MEDS: POTASSIUM CHLORIDE 20 MEQ TAB.PRT.SR XX SCH ×2 (09:00→17:55)
[2016-12-19] MEDS: VITAMINS A AND D OINT TP SCH (09:00)
[2016-12-19] MEDS: NEOMY/BACITRA/POLYMYXIN B OINT UD PACKET TP SCH ×2 (09:00→21:27)
--- NOTE | 2016-12-19 14:13 | NUR ---
DR. NESS([facility]) WAS CALLED AND MESSAGE LEFT RE:CONSULTATION TO EVAL GT. SITE.
[2016-12-19 14:50] VITALS: BP 109/60
--- NOTE | 2016-12-19 15:38 | NUR ---
DR. NESS CALLED BACK AND STATED HE MAY COME TODAY TO EVAL PT.
--- NOTE | 2016-12-19 16:34 | NUR ---
SEEN BY DENISE FULLER.
--- NOTE | 2016-12-19 18:12 | NUR ---
RECEIVED AWAKE AND RESPONSIVE ON CURRENT MECHANICAL VENT SETTINGS OF AC 12,VT 450, PEEP 5 AND FIO2 35%. STABLE WITH NO DISTRESS OBSERVED SHOWING O2 SATURATION OF 98%. SUCTIONED FOR MODERATE AMOUNT OF THICK WHITISH SECRETIONS. CHANGED HUMIDIFIER FILTER.
--- NOTE | 2016-12-19 19:53 | NUR ---
Seen and examined by Dr. Cole Frausto () with a plan to do EGD with gt replacement on . Addendum: 12/20/16 at 0218 by MARINA PEÑA RN Addendum: Also Dr. Frausto ordered Stomahesive powder to apply at the gt site as skin barrier d/t redness.
--- NOTE | 2016-12-19 20:35 | NUR ---
PT RECEIVED ON HT-50 VENTILATOR WITH CURRENT VENT SETTINGS OF AC 12, VT 450, PEEP +5, FIO2 35%. NO CHANGES MADE ON VENT AT THIS TIME. VENTILATOR ALARMS CHECKED AND ARE FUNCTIONING PROPERLY. TRACH IS PATENT AND SECURED WITH TRACH TIES. HME CHANGED. SUCTIONED A MODERATE AMOUNT OF THICK, YELLOW SECRETIONS. CUFF REINFLATED DUE TO LEAK. BVM AND BACK UP TRACH ARE AT BEDSIDE. VENT IS PLUGGED INTO RED EMERGENCY OUTLET. WILL CONTINUE TO MONITOR PT.
[2016-12-19] MEDS: [UNRECOGNIZED DRUG - OTHER] GT SCH (21:26)
[2016-12-19] MEDS: CALCIUM CARBONATE 500 MG TAB.CHEW GT SCH (21:26)
[2016-12-19] MEDS: FISH OIL GT SCH (21:26)
[2016-12-19 21:50] VITALS: BP 100/60
[2016-12-20] MEDS: BACLOFEN 10 MG TABLET GT SCH ×4 (00:43→17:02)
[2016-12-20] MEDS: BLOOD SUGAR DIAGNOSTIC 1 EACH STRIP VI SCH ×5 (00:43→23:56)
[2016-12-20] MEDS: INSULIN REGULAR, HUMAN 300 UNIT/3 ML VIAL SQ PRN ×5 (00:44→23:57)
--- NOTE | 2016-12-20 02:19 | NUR ---
patient is on NGT at this time, for gt replacement on .feeding and meds and water flushes are given via NGT at this time. GT site still red and noted with some brownish-red discharge from gt site. on Levaquin via gt for gt site abcess, no adverse reactions noted, cleansed and treatment done as ordered, handled very gently, afebrile, kept clean and comfortable.
[2016-12-20] MEDS: NUTRISOURCE FIBER 4 GM PACKET GT SCH ×3 (05:22→22:33)
[2016-12-20] MEDS: DIABETICSOURCE AC 1000ML LIQUID NG PRN (05:51)
[2016-12-20 08:00] VITALS: BP 112/63
[2016-12-20] MEDS: LEVETIRACETAM 500 MG/5 ML LIQUID UDC GT SCH ×2 (08:29→20:47)
[2016-12-20] MEDS: ACIDOPHILUS/BULGARICUS CHEW TAB GT SCH ×2 (08:29→20:47)
[2016-12-20] MEDS: LEVOFLOXACIN 500 MG TABLET GT SCH (08:30)
[2016-12-20] MEDS: FUROSEMIDE 40 MG/4 ML GT SCH (08:31)
[2016-12-20] MEDS: FAMOTIDINE 20 MG TABLET GT SCH ×2 (08:31→20:49)
[2016-12-20] MEDS: PHENOBARBITAL GT SCH ×2 (08:31→20:49)
[2016-12-20] MEDS: POTASSIUM CHLORIDE 20 MEQ TAB.PRT.SR XX SCH ×2 (08:32→17:02)
[2016-12-20] MEDS: HYDROGEN PEROXIDE 3% 118 ML BOTTLE TP SCH ×2 (08:32→20:49)
[2016-12-20] MEDS: COD LIVER OIL/ZINC OXIDE OINT 113 GM TUBE TP SCH ×2 (08:32→20:49)
[2016-12-20] MEDS: COD LIVER OIL/ZINC OXIDE OINT 113 GM TUBE TOP SCH ×2 (08:32→20:49)
[2016-12-20] MEDS: VITAMINS A AND D OINT TP SCH (08:32)
[2016-12-20] MEDS: INSULIN DETEMIR 300 UNIT/3 ML CARTRIDGE SQ SCH ×2 (08:34→21:00)
--- NOTE | 2016-12-20 18:00 | NUR ---
CONTINUE ON ATB THERAPY FOR GT SITE INFECTION NO ADVERSE REACTION NOTED.NGT IN PLACE.
--- NOTE | 2016-12-20 20:34 | NUR ---
DR HICKMAN WAS IN, NO NEW ORDERS.
[2016-12-20] MEDS: CALCIUM CARBONATE 500 MG TAB.CHEW GT SCH (20:49)
[2016-12-20] MEDS: [UNRECOGNIZED DRUG - OTHER] GT SCH (20:49)
[2016-12-20] MEDS: FISH OIL GT SCH (20:49)
[2016-12-20 23:03] VITALS: BP 100/56
[2016-12-21] MEDS: BACLOFEN 10 MG TABLET GT SCH ×5 (00:02→23:13)
--- NOTE | 2016-12-21 00:43 | NUR ---
PT ON CONT HT 50 VENT WITH SHILEY # [address] AND SECURED, WITH SAME CURRENT VENT SETTINGS, PT DOES ASSIST AT TIMES , CHECK CUFF, CHANGE HME, SUCTIONED VERY LIGHT PALE YELL TINGE SECRETIONS, WITH GOOD COUGH EFFORT, NO VENT CHANGES MADE AT THIS TIME, ALL ALARMS OK, AMBU BAG AT BEDSIDE ,NO SIGNS OF SOB, PT STABLE. Andi CHAKRABORTYP Addendum: 12/21/16 at 0046 by ETHEL FERGUSON RT Amended: Links added.
--- NOTE | 2016-12-21 05:00 | NUR ---
kept npo after midnight for g-tube replacement on 12/21/16, blood sugar-166 @ 0500, no hypoglycemic reaction noted.
[2016-12-21] MEDS: NUTRISOURCE FIBER 4 GM PACKET GT SCH ×3 (05:48→22:16)
[2016-12-21] MEDS: BLOOD SUGAR DIAGNOSTIC 1 EACH STRIP VI SCH ×4 (05:49→23:13)
[2016-12-21] MEDS: INSULIN REGULAR, HUMAN 300 UNIT/3 ML VIAL SQ PRN ×4 (05:55→23:14)
[2016-12-21 08:00] VITALS: BP 111/51
[2016-12-21] MEDS: LEVETIRACETAM 500 MG/5 ML LIQUID UDC GT SCH ×2 (08:23→20:44)
[2016-12-21] MEDS: PHENOBARBITAL GT SCH ×2 (08:23→20:44)
[2016-12-21] MEDS: FUROSEMIDE 40 MG/4 ML GT SCH (08:23)
[2016-12-21] MEDS: FAMOTIDINE 20 MG TABLET GT SCH ×2 (08:23→20:44)
[2016-12-21] MEDS: ACIDOPHILUS/BULGARICUS CHEW TAB GT SCH ×2 (08:23→20:43)
[2016-12-21] MEDS: LEVOFLOXACIN 500 MG TABLET GT SCH (08:23)
[2016-12-21] MEDS: POTASSIUM CHLORIDE 20 MEQ TAB.PRT.SR XX SCH ×2 (08:24→18:00)
[2016-12-21] MEDS: HYDROGEN PEROXIDE 3% 118 ML BOTTLE TP SCH ×2 (08:24→20:45)
[2016-12-21] MEDS: VITAMINS A AND D OINT TP SCH (08:24)
[2016-12-21] MEDS: COD LIVER OIL/ZINC OXIDE OINT 113 GM TUBE TP SCH ×2 (08:24→20:45)
[2016-12-21] MEDS: COD LIVER OIL/ZINC OXIDE OINT 113 GM TUBE TOP SCH ×2 (08:24→20:45)
[2016-12-21] MEDS: INSULIN DETEMIR 300 UNIT/3 ML CARTRIDGE SQ SCH ×2 (09:00→20:12)
--- NOTE | 2016-12-21 09:50 | NUR ---
PATIENT RECEIVED ON HT-50 VENT WITH THE FOLLOWING SETTINGS THAT CHARTED ON MECHANICAL VENT NOTES. HME CHANGED. WILL CHANGED VENT CIRCUITS DURING LAST ROUNDS/VENT CHECK. VENT ALARMS AND ON AND LOUD. SX'D SMALL AMOUNTS OF WHITE AND YELLOWISH SECRETIONS. SECRETIONS WERE THICK. VENT IS PLUGGED IN THE RED EMERGENCY OUTLET. TRACH IS PATENT AND PROPERLY SECURED WITH TRACH TIES. NO SIGNS OR SYMPTOMS OF RESPIRATORY DISTRESS NOTED AT THIS TIME. WILL CONTINUE TO MONITOR. TRANSPORTED PATIENT DOWN TO OR FOR PROCEDURE AT 0950 WITH HT-50 VENT (AMBU BAG AND BACK UP TRACH BY BEDSIDE.) AFTER PROCEDURE, TRANSPORTED PATIENT TO RECOVERY AT 1028. NO COMPLICATIONS DURING TRANSPORT. NO VENT CHANGES.
--- NOTE | 2016-12-21 09:50 | NUR ---
PT. WAS TRANSPORTED TO [facility] AND RT AT BEDSIDE ,TIME OUT DONE AND PERIPHERAL SALINE LOCK WAS PLACED ON LEFT HAND # 22 WITH GOOD BLOOD RETURN,STABLE V/S.
--- NOTE | 2016-12-21 11:20 | NUR ---
PT. IS BACK FROM PROCEDURE AND STABLE V/S 98/50,HR 65 TEMP 97.8F,O2SAT 98%,P/A 0/10, RR 12X'( ON VENT).AND NEW ORDERS WERE CARRIED OUT FROM HARSH ArriolaAND DR. NESS(G.I).
[2016-12-21] MEDS ORDERED: IV D5 1/2 NS 1000 ML 1,000 ML IV SCH (11:45)
[2016-12-21] MEDS: DIABETICSOURCE AC 1000ML LIQUID GT PRN (18:10)
[2016-12-21] MEDS: FISH OIL GT SCH (20:44)
[2016-12-21] MEDS: [UNRECOGNIZED DRUG - OTHER] GT SCH (20:44)
[2016-12-21] MEDS: CALCIUM CARBONATE 500 MG TAB.CHEW GT SCH (20:44)
--- NOTE | 2016-12-21 20:57 | NUR ---
PT ON CONT HT 50 VENT WITH SHILEY # [address] AND SECURED, WITH SAME CURRENT VENT SETTINGS, PT DOES ASSIST AT TIMES, CHECK CUFF, CHANGE HME, SUCTIONED LIGHT PALE YELL TINGE SECRETIONS, WITH GOOD COUGH EFFORT, PIP 32-34CM APPROX. NO VENT CHANGES MADE AT THIS TIME, CHANGE HME AND CHECK CUFF, NO VENT CHANGES MADE AT THIS TIME, NO SIGNS OF RESP. DISTRESS. Andi FERGUSON RCP Addendum: 12/21/16 at 2058 by ETHEL FERGUSON RT Amended: Links added.
[2016-12-21 22:51] VITALS: BP 97/65
[2016-12-22] MEDS: BACLOFEN 10 MG TABLET GT SCH ×4 (05:53→23:11)
[2016-12-22] MEDS: NUTRISOURCE FIBER 4 GM PACKET GT SCH ×3 (05:53→22:23)
[2016-12-22] MEDS: BLOOD SUGAR DIAGNOSTIC 1 EACH STRIP VI SCH ×4 (05:53→23:19)
[2016-12-22 08:00] VITALS: BP 116/67
[2016-12-22] MEDS: ACIDOPHILUS/BULGARICUS CHEW TAB GT SCH ×2 (08:15→20:42)
[2016-12-22] MEDS: LEVETIRACETAM 500 MG/5 ML LIQUID UDC GT SCH ×2 (08:16→20:42)
[2016-12-22] MEDS: LEVOFLOXACIN 500 MG TABLET GT SCH (08:16)
[2016-12-22] MEDS: PHENOBARBITAL GT SCH ×2 (08:17→20:43)
[2016-12-22] MEDS: FUROSEMIDE 40 MG/4 ML GT SCH (08:17)
[2016-12-22] MEDS: FAMOTIDINE 20 MG TABLET GT SCH ×2 (08:18→20:43)
[2016-12-22] MEDS: POTASSIUM CHLORIDE 20 MEQ TAB.PRT.SR XX SCH ×2 (08:18→17:07)
[2016-12-22] MEDS: COD LIVER OIL/ZINC OXIDE OINT 113 GM TUBE TOP SCH ×2 (08:18→20:43)
[2016-12-22] MEDS: VITAMINS A AND D OINT TP SCH (08:18)
[2016-12-22] MEDS: HYDROGEN PEROXIDE 3% 118 ML BOTTLE TP SCH ×2 (08:18→20:43)
[2016-12-22] MEDS: COD LIVER OIL/ZINC OXIDE OINT 113 GM TUBE TP SCH ×2 (08:18→20:43)
[2016-12-22] MEDS: INSULIN DETEMIR 300 UNIT/3 ML CARTRIDGE SQ SCH ×2 (08:22→21:00)
[2016-12-22] MEDS: INSULIN REGULAR, HUMAN 300 UNIT/3 ML VIAL SQ PRN ×2 (11:48→17:08)
--- NOTE | 2016-12-22 12:00 | NUR ---
SEEN BY DYLAN COLLAZO,NO NEW ORDERS.
--- NOTE | 2016-12-22 17:05 | NUR ---
CONTINUE ON ATB THERAPY FOR GT SITE INFECTION,WITH NO ADVERSE REACTION NOTED,GT WAS CHANGED YESTERDAY,NO BLEEDING NOTED,WITH SMALL PURULENT DISCHARGE,KEPT CLEAN AND DRY ,GOOD PERICARE GIVEN.
--- NOTE | 2016-12-22 17:36 | NUR ---
RECEIVED ON CURRENT MECHANICAL VENTILATOR WITH SETTINGS OF AC 12,VT 450, PEEP 5 AND FIO2 35%. RESIDENT IS VENT DEPENDENT. NO DISTRESS OBSERVED WITH O2 SATURATION OF 98%. SUCTIONED FOR MODERATE AMOUNT OF THICK WHITISH SECRETIONS. CHANGED HUMIDIFIER FILTER.
--- NOTE | 2016-12-22 20:10 | NUR ---
Pt received on Continuous mechanical ventilation via trach, in semi fowlers position and has limited response to verbal stimuli. Pt is on [place] HT-50 vent with settings of A/C-12, VT-450, PEEP +5, FIO2-35%. Trach is a Shiley 6 DCT. Minimal leak technique used to assess cuff inflation. Trach is patent and secure. No irritation or redness noted around stoma or trach tie. Tolerating vent settings well. SpO2-97%. Sxn'd small amts of whitish/yellow secretions. No signs or symptoms of respiratory distress noted. HME changed. PPE used. Vent alarm parameters checked, on and audible. Vent plugged into red emergency outlet. Bag/valve/mask and back up trach bedside. Will continue to monitor.
[2016-12-22] MEDS: CALCIUM CARBONATE 500 MG TAB.CHEW GT SCH (20:43)
[2016-12-22] MEDS: FISH OIL GT SCH (20:43)
[2016-12-22] MEDS: [UNRECOGNIZED DRUG - OTHER] GT SCH (20:43)
[2016-12-22 20:56] VITALS: BP 98/56
[2016-12-22] MEDS: DIABETICSOURCE AC 1000ML LIQUID GT PRN (23:00)
[2016-12-23] MEDS: INSULIN REGULAR, HUMAN 300 UNIT/3 ML VIAL SQ PRN ×2 (01:01→11:44)
[2016-12-23] MEDS: NUTRISOURCE FIBER 4 GM PACKET GT SCH ×3 (05:35→21:41)
[2016-12-23] MEDS: BACLOFEN 10 MG TABLET GT SCH ×3 (05:35→17:22)
[2016-12-23] MEDS: BLOOD SUGAR DIAGNOSTIC 1 EACH STRIP VI SCH ×3 (05:36→17:22)
[2016-12-23 08:00] VITALS: BP 121/62
[2016-12-23] MEDS: ACIDOPHILUS/BULGARICUS CHEW TAB GT SCH ×2 (08:52→21:36)
[2016-12-23] MEDS: LEVETIRACETAM 500 MG/5 ML LIQUID UDC GT SCH ×2 (08:52→21:37)
[2016-12-23] MEDS: LEVOFLOXACIN 500 MG TABLET GT SCH (08:53)
[2016-12-23] MEDS: FAMOTIDINE 20 MG TABLET GT SCH ×2 (08:54→21:37)
[2016-12-23] MEDS: POTASSIUM CHLORIDE 20 MEQ TAB.PRT.SR XX SCH ×2 (08:54→17:22)
[2016-12-23] MEDS: FUROSEMIDE 40 MG/4 ML GT SCH (08:54)
[2016-12-23] MEDS: PHENOBARBITAL GT SCH ×2 (08:54→21:37)
[2016-12-23] MEDS: HYDROGEN PEROXIDE 3% 118 ML BOTTLE TP SCH ×2 (08:54→21:41)
[2016-12-23] MEDS: VITAMINS A AND D OINT TP SCH (08:54)
[2016-12-23] MEDS: COD LIVER OIL/ZINC OXIDE OINT 113 GM TUBE TP SCH ×2 (08:54→21:41)
[2016-12-23] MEDS: COD LIVER OIL/ZINC OXIDE OINT 113 GM TUBE TOP SCH ×2 (08:54→21:41)
[2016-12-23] MEDS: INSULIN DETEMIR 300 UNIT/3 ML CARTRIDGE SQ SCH ×2 (08:55→21:50)
--- NOTE | 2016-12-23 09:25 | NUR ---
PT RECEIVED ON HT-50 VENTILATOR. PATIENT IS ON AC12, VT 450, PEEP +5, 35% FIO2. TRACH IS SECURED WITH TRACH TIES. SUCTIONED A SMALL AMOUNT OF THICK WHITE AND YELLOW SECRETIONS. AIR WAY IS PATENT. SPARE TRACH AND BMV IS BY BEDSIDE. HME CHANGED. VENT ALARMS CHECKED AND THEY ARE ON AND AUDIBLE. VENTILATOR IS PLUGGED IN THE RED EMERGENCY OUTLET. NO SIGNS OR SYMPTOMS OF RESPIRATORY DISTRESS NOTED. WILL CONTINUE TO MONITOR.
[2016-12-23 20:06] VITALS: BP 110/59
--- NOTE | 2016-12-23 20:22 | NUR ---
Pt received on HT-50 vent with the following settings of AC-12, Vt-450, PEEP+5, FIO2-35%, trached with Shiley#6 DCT trach, which is in the place and secure. No s/s of respiratory distress noted. Airway care done, pt responded to physical stimuli. HME and Sx Juarez changed. Resus. bag and back up trach at bedside. Vent and alarms checked and reset.
[2016-12-23] MEDS: [UNRECOGNIZED DRUG - OTHER] GT SCH (21:37)
[2016-12-23] MEDS: FISH OIL GT SCH (21:37)
[2016-12-23] MEDS: CALCIUM CARBONATE 500 MG TAB.CHEW GT SCH (21:37)
[2016-12-24] MEDS: INSULIN REGULAR, HUMAN 300 UNIT/3 ML VIAL SQ PRN ×4 (00:21→17:09)
[2016-12-24] MEDS: BLOOD SUGAR DIAGNOSTIC 1 EACH STRIP VI SCH ×4 (00:22→17:06)
[2016-12-24] MEDS: BACLOFEN 10 MG TABLET GT SCH ×4 (00:22→17:06)
[2016-12-24] MEDS: DIABETICSOURCE AC 1000ML LIQUID GT PRN (01:29)
[2016-12-24] MEDS: NUTRISOURCE FIBER 4 GM PACKET GT SCH ×3 (05:46→22:05)
[2016-12-24] MEDS: LEVETIRACETAM 500 MG/5 ML LIQUID UDC GT SCH ×2 (08:48→20:57)
[2016-12-24] MEDS: ACIDOPHILUS/BULGARICUS CHEW TAB GT SCH ×2 (08:48→20:57)
[2016-12-24] MEDS: PHENOBARBITAL GT SCH ×2 (08:53→20:58)
[2016-12-24] MEDS: FUROSEMIDE 40 MG/4 ML GT SCH (08:53)
[2016-12-24] MEDS: FAMOTIDINE 20 MG TABLET GT SCH ×2 (08:54→20:58)
[2016-12-24] MEDS: INSULIN DETEMIR 300 UNIT/3 ML CARTRIDGE SQ SCH ×2 (08:54→21:00)
[2016-12-24] MEDS: POTASSIUM CHLORIDE 20 MEQ TAB.PRT.SR XX SCH ×2 (08:57→17:06)
[2016-12-24] MEDS: VITAMINS A AND D OINT TP SCH (08:57)
[2016-12-24] MEDS: HYDROGEN PEROXIDE 3% 118 ML BOTTLE TP SCH ×2 (08:57→20:58)
[2016-12-24] MEDS: COD LIVER OIL/ZINC OXIDE OINT 113 GM TUBE TOP SCH ×2 (08:57→20:58)
[2016-12-24] MEDS: COD LIVER OIL/ZINC OXIDE OINT 113 GM TUBE TP SCH ×2 (08:57→20:58)
[2016-12-24 11:05] VITALS: BP 112/66
[2016-12-24] MEDS: FISH OIL GT SCH (20:57)
[2016-12-24] MEDS: [UNRECOGNIZED DRUG - OTHER] GT SCH (20:57)
[2016-12-24] MEDS: CALCIUM CARBONATE 500 MG TAB.CHEW GT SCH (20:58)
[2016-12-24 21:02] VITALS: BP 94/53
[2016-12-25] MEDS: BLOOD SUGAR DIAGNOSTIC 1 EACH STRIP VI SCH ×5 (00:35→23:24)
[2016-12-25] MEDS: BACLOFEN 10 MG TABLET GT SCH ×5 (00:36→23:24)
[2016-12-25] MEDS: DIABETICSOURCE AC 1000ML LIQUID GT PRN (05:15)
[2016-12-25] MEDS: NUTRISOURCE FIBER 4 GM PACKET GT SCH ×3 (05:16→21:47)
[2016-12-25] MEDS: ACIDOPHILUS/BULGARICUS CHEW TAB GT SCH ×2 (08:47→21:46)
[2016-12-25] MEDS: LEVETIRACETAM 500 MG/5 ML LIQUID UDC GT SCH ×2 (08:48→21:46)
[2016-12-25] MEDS: FUROSEMIDE 40 MG/4 ML GT SCH (08:49)
[2016-12-25] MEDS: FAMOTIDINE 20 MG TABLET GT SCH ×2 (08:51→21:47)
[2016-12-25] MEDS: PHENOBARBITAL GT SCH ×2 (08:51→21:47)
[2016-12-25] MEDS: COD LIVER OIL/ZINC OXIDE OINT 113 GM TUBE TP SCH ×2 (08:52→21:47)
[2016-12-25] MEDS: HYDROGEN PEROXIDE 3% 118 ML BOTTLE TP SCH ×2 (08:52→21:47)
[2016-12-25] MEDS: COD LIVER OIL/ZINC OXIDE OINT 113 GM TUBE TOP SCH ×2 (08:52→21:47)
[2016-12-25] MEDS: INSULIN DETEMIR 300 UNIT/3 ML CARTRIDGE SQ SCH ×2 (08:52→20:57)
[2016-12-25] MEDS: POTASSIUM CHLORIDE 20 MEQ TAB.PRT.SR XX SCH ×2 (08:53→17:28)
[2016-12-25] MEDS: VITAMINS A AND D OINT TP SCH (08:53)
[2016-12-25 09:16] VITALS: BP 133/51
--- NOTE | 2016-12-25 10:30 | NUR ---
SEEN AND EXAMINED BY DYLAN COLLAZO,NNO.
[2016-12-25 21:11] VITALS: BP 112/68
[2016-12-25] MEDS: [UNRECOGNIZED DRUG - OTHER] GT SCH (21:46)
[2016-12-25] MEDS: FISH OIL GT SCH (21:46)
[2016-12-25] MEDS: CALCIUM CARBONATE 500 MG TAB.CHEW GT SCH (21:47)
[2016-12-26] MEDS: INSULIN REGULAR, HUMAN 300 UNIT/3 ML VIAL SQ PRN (00:12)
[2016-12-26] MEDS: BLOOD SUGAR DIAGNOSTIC 1 EACH STRIP VI SCH ×3 (05:16→17:31)
[2016-12-26] MEDS: BACLOFEN 10 MG TABLET GT SCH ×3 (05:16→17:31)
[2016-12-26] MEDS: NUTRISOURCE FIBER 4 GM PACKET GT SCH ×3 (05:16→21:03)
[2016-12-26] MEDS: DIABETICSOURCE AC 1000ML LIQUID GT PRN (06:55)
[2016-12-26] MEDS: ACIDOPHILUS/BULGARICUS CHEW TAB GT SCH ×2 (08:19→20:47)
[2016-12-26] MEDS: INSULIN DETEMIR 300 UNIT/3 ML CARTRIDGE SQ SCH ×2 (08:19→20:52)
[2016-12-26] MEDS: COD LIVER OIL/ZINC OXIDE OINT 113 GM TUBE TP SCH ×2 (08:22→20:48)
[2016-12-26] MEDS: FAMOTIDINE 20 MG TABLET GT SCH ×2 (08:22→20:54)
[2016-12-26] MEDS: PHENOBARBITAL GT SCH ×2 (08:22→20:51)
[2016-12-26] MEDS: FUROSEMIDE 40 MG/4 ML GT SCH (08:22)
[2016-12-26] MEDS: VITAMINS A AND D OINT TP SCH (08:22)
[2016-12-26] MEDS: HYDROGEN PEROXIDE 3% 118 ML BOTTLE TP SCH ×2 (08:22→20:48)
[2016-12-26] MEDS: COD LIVER OIL/ZINC OXIDE OINT 113 GM TUBE TOP SCH ×2 (08:22→20:48)
[2016-12-26] MEDS: LEVETIRACETAM 500 MG/5 ML LIQUID UDC GT SCH ×2 (08:22→20:54)
[2016-12-26] MEDS: POTASSIUM CHLORIDE 20 MEQ TAB.PRT.SR XX SCH ×2 (08:23→17:30)
[2016-12-26 09:17] VITALS: BP 107/69
--- NOTE | 2016-12-26 16:10 | NUR ---
Seen and examined by Dr. Gilbert, with no new orders.
--- NOTE | 2016-12-26 20:26 | NUR ---
Patient received on [place] HT-50 settings AC 12, VT 450, PEEP+5, FIO2-35%. Shiley 6 DCT is patent and secure. Backup Shiley 6 DCT and resusc. bag at bedside. No respiratory distress noted. Pt to be monitored throughout the shift and PRN SX. HT-50 alarm parameters have been checked and remain audible.
[2016-12-26] MEDS: [UNRECOGNIZED DRUG - OTHER] GT SCH (20:47)
[2016-12-26] MEDS: FISH OIL GT SCH (20:47)
[2016-12-26] MEDS: CALCIUM CARBONATE 500 MG TAB.CHEW GT SCH (20:48)
[2016-12-26 22:12] VITALS: BP 110/55
[2016-12-27] MEDS: BLOOD SUGAR DIAGNOSTIC 1 EACH STRIP VI SCH ×4 (00:04→18:03)
[2016-12-27] MEDS: BACLOFEN 10 MG TABLET GT SCH ×5 (00:04→23:14)
[2016-12-27] MEDS: INSULIN REGULAR, HUMAN 300 UNIT/3 ML VIAL SQ PRN ×3 (01:05→18:05)
[2016-12-27] MEDS: NUTRISOURCE FIBER 4 GM PACKET GT SCH ×3 (05:23→22:00)
[2016-12-27 08:00] VITALS: BP 104/52
[2016-12-27] MEDS: ACIDOPHILUS/BULGARICUS CHEW TAB GT SCH ×2 (08:50→20:17)
[2016-12-27] MEDS: LEVETIRACETAM 500 MG/5 ML LIQUID UDC GT SCH ×2 (08:50→20:17)
[2016-12-27] MEDS: FUROSEMIDE 40 MG/4 ML GT SCH (08:51)
[2016-12-27] MEDS: FAMOTIDINE 20 MG TABLET GT SCH ×2 (08:51→20:17)
[2016-12-27] MEDS: PHENOBARBITAL GT SCH ×2 (08:51→20:17)
[2016-12-27] MEDS: COD LIVER OIL/ZINC OXIDE OINT 113 GM TUBE TP SCH ×2 (08:52→20:20)
[2016-12-27] MEDS: HYDROGEN PEROXIDE 3% 118 ML BOTTLE TP SCH ×2 (08:52→20:20)
[2016-12-27] MEDS: VITAMINS A AND D OINT TP SCH (08:52)
[2016-12-27] MEDS: COD LIVER OIL/ZINC OXIDE OINT 113 GM TUBE TOP SCH ×2 (08:52→20:20)
[2016-12-27] MEDS: POTASSIUM CHLORIDE 20 MEQ TAB.PRT.SR XX SCH ×2 (08:52→17:00)
[2016-12-27] MEDS: DIABETICSOURCE AC 1000ML LIQUID GT PRN (08:55)
[2016-12-27] MEDS: INSULIN DETEMIR 300 UNIT/3 ML CARTRIDGE SQ SCH ×2 (08:55→20:19)
[2016-12-27] MEDS: FISH OIL GT SCH (20:17)
[2016-12-27] MEDS: [UNRECOGNIZED DRUG - OTHER] GT SCH (20:17)
[2016-12-27] MEDS: CALCIUM CARBONATE 500 MG TAB.CHEW GT SCH (20:18)
[2016-12-27 20:28] VITALS: BP 108/60
--- NOTE | 2016-12-27 21:10 | NUR ---
RECEIVED PATIENT ON MECHANICAL VENTILATOR WITH THE FOLLOWING SETTINGS: AC12, VT 450, PEEP +5, 35% FIO2. PATIENT IS TOLERATING CURRENT VENT SETTINGS WELL. SUCTIONED SMALL AMOUNTS OF THICK YELLOWISH SECRETIONS. TRACH IS PATENT AND PROPERLY SECURED WITH TRACH TIES. PRN HME CHANGED. ALARMS ARE ON AND LOUD. BACK UP TRACH AND AMBU BAG IS BY BEDSIDE. VENT IS PLUGGED IN RED OUTLET. NO SOB NOTED AT THIS TIME. WILL CONTINUE TO MONITOR PATIENT THROUGHOUT SHIFT.
[2016-12-28] MEDS: BLOOD SUGAR DIAGNOSTIC 1 EACH STRIP VI SCH ×4 (00:41→17:04)
[2016-12-28] MEDS: INSULIN REGULAR, HUMAN 300 UNIT/3 ML VIAL SQ PRN ×4 (00:42→17:04)
[2016-12-28] MEDS: NUTRISOURCE FIBER 4 GM PACKET GT SCH ×3 (05:01→21:27)
[2016-12-28] MEDS: BACLOFEN 10 MG TABLET GT SCH ×3 (05:01→17:03)
[2016-12-28 08:00] VITALS: BP 108/72
[2016-12-28] MEDS: ACIDOPHILUS/BULGARICUS CHEW TAB GT SCH ×2 (08:51→21:24)
[2016-12-28] MEDS: PHENOBARBITAL GT SCH ×2 (08:51→21:25)
[2016-12-28] MEDS: FUROSEMIDE 40 MG/4 ML GT SCH (08:51)
[2016-12-28] MEDS: LEVETIRACETAM 500 MG/5 ML LIQUID UDC GT SCH ×2 (08:51→21:24)
[2016-12-28] MEDS: FAMOTIDINE 20 MG TABLET GT SCH ×2 (08:51→21:25)
[2016-12-28] MEDS: POTASSIUM CHLORIDE 20 MEQ TAB.PRT.SR XX SCH ×2 (08:52→17:03)
[2016-12-28] MEDS: COD LIVER OIL/ZINC OXIDE OINT 113 GM TUBE TP SCH ×2 (08:52→21:27)
[2016-12-28] MEDS: VITAMINS A AND D OINT TP SCH (08:52)
[2016-12-28] MEDS: HYDROGEN PEROXIDE 3% 118 ML BOTTLE TP SCH ×2 (08:52→21:27)
[2016-12-28] MEDS: COD LIVER OIL/ZINC OXIDE OINT 113 GM TUBE TOP SCH ×2 (08:52→21:27)
[2016-12-28] MEDS: INSULIN DETEMIR 300 UNIT/3 ML CARTRIDGE SQ SCH ×2 (08:55→21:34)
[2016-12-28] MEDS: DIABETICSOURCE AC 1000ML LIQUID GT PRN (11:38)
--- NOTE | 2016-12-28 12:38 | NUR ---
PT RECEIVED ON HT-50 VENT, SETTINGS ARE AC 12, Vt 450, +5, 35% FIO2. NO S\S OF RESPIRATORY DISTRESS NOTED. SHILEY 6 TRACH IS PATENT AND SECURED WITH TIES. NO SOB NOTED AT THIS TIME. SUCTIONED SMALL AMOUNTS OF YELLOW THICK SECRETIONS. HME CHANGED, BVM AND BACK UP TRACH AT BEDSIDE. ALARMS ARE ON AND AUDIBLE, WILL CONTINUE TO MONITOR.
[2016-12-28 20:13] VITALS: BP 111/59
--- NOTE | 2016-12-28 20:54 | NUR ---
PT RECEIVED ON HT-50 VENT WITH THE FOLLOWING SETTINGS THAT ARE CHARTED ON THE MECHANICAL VENT NOTES. SUCTIONED A SMALL AMOUNT OF THICK YELLOW AND WHITE SECRETIONS. ORAL SUCTIONED DONE WELL. NO COMPLICATIONS WHILE SUCTIONING. TRACH IS SECURED. AIR WAY IS PATENT. HME CHANGED. VENT PLUGGED IN RED EMERGENCY OUTLET. SPARE TRACH AND BMV IS BY BEDSIDE. VENT ALARMS CHECKED AND THEY ARE ON AND AUDIBLE. NO SIGNS OR SYMPTOMS OF RESPIRATORY DISTRESS NOTED AT THIS TIME. WILL CONTINUE TO MONITOR.
[2016-12-28] MEDS: FISH OIL GT SCH (21:25)
[2016-12-28] MEDS: [UNRECOGNIZED DRUG - OTHER] GT SCH (21:25)
[2016-12-28] MEDS: CALCIUM CARBONATE 500 MG TAB.CHEW GT SCH (21:26)
[2016-12-29] MEDS: BACLOFEN 10 MG TABLET GT SCH ×4 (00:44→17:10)
[2016-12-29] MEDS: BLOOD SUGAR DIAGNOSTIC 1 EACH STRIP VI SCH ×4 (00:45→17:10)
[2016-12-29] MEDS: INSULIN REGULAR, HUMAN 300 UNIT/3 ML VIAL SQ PRN ×4 (00:48→17:11)
[2016-12-29] MEDS: NUTRISOURCE FIBER 4 GM PACKET GT SCH ×3 (05:09→21:27)
[2016-12-29 08:00] VITALS: BP 114/65
[2016-12-29] MEDS: LEVETIRACETAM 500 MG/5 ML LIQUID UDC GT SCH ×2 (09:14→21:09)
[2016-12-29] MEDS: ACIDOPHILUS/BULGARICUS CHEW TAB GT SCH ×2 (09:14→21:09)
[2016-12-29] MEDS: PHENOBARBITAL GT SCH ×2 (09:15→21:10)
[2016-12-29] MEDS: FAMOTIDINE 20 MG TABLET GT SCH ×2 (09:15→21:10)
[2016-12-29] MEDS: FUROSEMIDE 40 MG/4 ML GT SCH (09:15)
[2016-12-29] MEDS: VITAMINS A AND D OINT TP SCH (09:16)
[2016-12-29] MEDS: COD LIVER OIL/ZINC OXIDE OINT 113 GM TUBE TOP SCH ×2 (09:16→21:27)
[2016-12-29] MEDS: INSULIN DETEMIR 300 UNIT/3 ML CARTRIDGE SQ SCH ×2 (09:16→21:10)
[2016-12-29] MEDS: HYDROGEN PEROXIDE 3% 118 ML BOTTLE TP SCH ×2 (09:16→21:27)
[2016-12-29] MEDS: POTASSIUM CHLORIDE 20 MEQ TAB.PRT.SR XX SCH ×2 (09:16→17:10)
--- NOTE | 2016-12-29 11:00 | NUR ---
Seen and examined by VALE Lomax with no new order.
[2016-12-29] MEDS: DIABETICSOURCE AC 1000ML LIQUID GT PRN (12:19)
[2016-12-29] MEDS: FISH OIL GT SCH (21:10)
[2016-12-29] MEDS: CALCIUM CARBONATE 500 MG TAB.CHEW GT SCH (21:10)
[2016-12-29] MEDS: [UNRECOGNIZED DRUG - OTHER] GT SCH (21:10)
[2016-12-29 23:16] VITALS: BP 99/55
[2016-12-30] MEDS: BACLOFEN 10 MG TABLET GT SCH ×4 (00:18→17:04)
[2016-12-30] MEDS: BLOOD SUGAR DIAGNOSTIC 1 EACH STRIP VI SCH ×4 (00:19→17:28)
[2016-12-30] MEDS: INSULIN REGULAR, HUMAN 300 UNIT/3 ML VIAL SQ PRN ×4 (00:25→18:08)
[2016-12-30] MEDS: NUTRISOURCE FIBER 4 GM PACKET GT SCH ×3 (05:41→21:28)
[2016-12-30 08:00] VITALS: BP 106/60
[2016-12-30] MEDS: INSULIN DETEMIR 300 UNIT/3 ML CARTRIDGE SQ SCH ×2 (08:38→21:00)
[2016-12-30] MEDS: ACIDOPHILUS/BULGARICUS CHEW TAB GT SCH ×2 (08:47→20:33)
[2016-12-30] MEDS: LEVETIRACETAM 500 MG/5 ML LIQUID UDC GT SCH ×2 (08:48→20:33)
[2016-12-30] MEDS: POTASSIUM CHLORIDE 20 MEQ TAB.PRT.SR XX SCH ×2 (08:50→17:04)
[2016-12-30] MEDS: COD LIVER OIL/ZINC OXIDE OINT 113 GM TUBE TOP SCH ×2 (08:50→20:34)
[2016-12-30] MEDS: HYDROGEN PEROXIDE 3% 118 ML BOTTLE TP SCH ×2 (08:50→20:34)
[2016-12-30] MEDS: PHENOBARBITAL GT SCH ×2 (08:50→20:33)
[2016-12-30] MEDS: FAMOTIDINE 20 MG TABLET GT SCH ×2 (08:50→20:33)
[2016-12-30] MEDS: VITAMINS A AND D OINT TP SCH (08:50)
[2016-12-30] MEDS: FUROSEMIDE 40 MG/4 ML GT SCH (08:50)
[2016-12-30] MEDS: DIABETICSOURCE AC 1000ML LIQUID GT PRN (17:04)
--- NOTE | 2016-12-30 18:28 | NUR ---
RECEIVED ON VENT HT-50 WITH SETTINGS OF AC 12,VT 450, PEEP 5 AND FIO2 35%. NO DISTRESS OBSERVED WITH O2 SATURATION OF 98%. SUCTIONED FOR MODERATE AMOUNT OF THICK WHITISH SECRETIONS. CHANGED HUMIDIFIER FILTER.
[2016-12-30] MEDS: FISH OIL GT SCH (20:33)
[2016-12-30] MEDS: [UNRECOGNIZED DRUG - OTHER] GT SCH (20:33)
[2016-12-30] MEDS: CALCIUM CARBONATE 500 MG TAB.CHEW GT SCH (20:34)
[2016-12-30 23:07] VITALS: BP 95/57
[2016-12-31] MEDS: BACLOFEN 10 MG TABLET GT SCH ×4 (00:01→17:16)
[2016-12-31] MEDS: BLOOD SUGAR DIAGNOSTIC 1 EACH STRIP VI SCH ×4 (00:04→17:17)
[2016-12-31] MEDS: INSULIN REGULAR, HUMAN 300 UNIT/3 ML VIAL SQ PRN ×2 (00:08→05:53)
[2016-12-31] MEDS: NUTRISOURCE FIBER 4 GM PACKET GT SCH ×3 (05:41→22:20)
[2016-12-31 07:56] VITALS: BP 99/51
--- NOTE | 2016-12-31 08:10 | NUR ---
Pt received on Continuous mechanical ventilation via trach, in semi fowlers position and has limited response to verbal stimuli. Pt is on [place] HT-50 vent with settings of A/C-12, VT-450, PEEP +5, FIO2-35%. Trach is a Shiley 6 DCT. Trach is patent and secure. No irritation or redness noted around stoma or trach tie. Tolerating vent settings well. SpO2-99%. No signs or symptoms of respiratory distress noted. HME changed. PPE used. Vent alarm parameters checked, on and audible. Vent plugged into red emergency outlet. Bag/valve/mask and back up trach bedside. Will continue to monitor.
[2016-12-31] MEDS: ACIDOPHILUS/BULGARICUS CHEW TAB GT SCH ×2 (08:52→20:08)
[2016-12-31] MEDS: LEVETIRACETAM 500 MG/5 ML LIQUID UDC GT SCH ×2 (08:52→20:09)
[2016-12-31] MEDS: FUROSEMIDE 40 MG/4 ML GT SCH (08:53)
[2016-12-31] MEDS: PHENOBARBITAL GT SCH ×2 (08:53→20:09)
[2016-12-31] MEDS: HYDROGEN PEROXIDE 3% 118 ML BOTTLE TP SCH ×2 (08:54→20:09)
[2016-12-31] MEDS: VITAMINS A AND D OINT TP SCH (08:54)
[2016-12-31] MEDS: POTASSIUM CHLORIDE 20 MEQ TAB.PRT.SR XX SCH ×2 (08:54→17:15)
[2016-12-31] MEDS: COD LIVER OIL/ZINC OXIDE OINT 113 GM TUBE TOP SCH ×2 (08:54→20:09)
[2016-12-31] MEDS: FAMOTIDINE 20 MG TABLET GT SCH ×2 (08:54→20:09)
[2016-12-31] MEDS: INSULIN DETEMIR 300 UNIT/3 ML CARTRIDGE SQ SCH ×2 (08:56→21:48)
[2016-12-31] MEDS: DIABETICSOURCE AC 1000ML LIQUID GT PRN (19:29)
[2016-12-31] MEDS: FISH OIL GT SCH (20:09)
[2016-12-31] MEDS: [UNRECOGNIZED DRUG - OTHER] GT SCH (20:09)
[2016-12-31] MEDS: CALCIUM CARBONATE 500 MG TAB.CHEW GT SCH (20:09)
--- NOTE | 2016-12-31 20:29 | NUR ---
RECEIVED PT ON CONTINUOUS MECHANICAL VENTILATION WITH CURRENT VENT SETTINGS OF AC 12, VT 450, PEEP +5, FIO2 35%. PT SHOWING NO S/S OF RESPIRATORY DISTRESS AT THIS TIME. NO CHANGES MADE ON VENT AT THIS TIME. VENT ALARMS CHECKED, ARE ON AND AUDIBLE. TRACH IS PATENT AND SECURED WITH FOAM TRACH TIES. SUCTIONED SMALL AMOUNT OF THICK, YELLOW SECRETIONS. HME CHANGED NEEDED. CUFF IS INFLATED. AMBU BAG AND BACK UP TRACH ARE AT BEDSIDE. VENT IS PLUGGED INTO RED EMERGENCY OUTLET. WILL CONTINUE TO MONITOR PT THROUGHOUT SHIFT.
[2016-12-31 23:15] VITALS: BP 100/59
[2017-01-01] MEDS: BACLOFEN 10 MG TABLET GT SCH ×4 (00:25→17:06)
[2017-01-01] MEDS: BLOOD SUGAR DIAGNOSTIC 1 EACH STRIP VI SCH ×4 (00:26→17:14)
[2017-01-01] MEDS: INSULIN REGULAR, HUMAN 300 UNIT/3 ML VIAL SQ PRN ×3 (00:33→11:39)
[2017-01-01] MEDS: NUTRISOURCE FIBER 4 GM PACKET GT SCH ×3 (05:54→21:39)
[2017-01-01 07:55] VITALS: BP 102/51
[2017-01-01] MEDS: ACIDOPHILUS/BULGARICUS CHEW TAB GT SCH ×2 (08:00→20:05)
[2017-01-01] MEDS: LEVETIRACETAM 500 MG/5 ML LIQUID UDC GT SCH ×2 (08:00→20:06)
[2017-01-01] MEDS: FUROSEMIDE 40 MG/4 ML GT SCH (08:01)
[2017-01-01] MEDS: PHENOBARBITAL GT SCH ×2 (08:01→20:06)
[2017-01-01] MEDS: FAMOTIDINE 20 MG TABLET GT SCH ×2 (08:01→20:06)
[2017-01-01] MEDS: INSULIN DETEMIR 300 UNIT/3 ML CARTRIDGE SQ SCH ×2 (08:02→20:07)
[2017-01-01] MEDS: POTASSIUM CHLORIDE 20 MEQ TAB.PRT.SR XX SCH ×2 (08:04→17:06)
[2017-01-01] MEDS: HYDROGEN PEROXIDE 3% 118 ML BOTTLE TP SCH ×2 (08:04→20:06)
[2017-01-01] MEDS: COD LIVER OIL/ZINC OXIDE OINT 113 GM TUBE TOP SCH ×2 (08:04→20:06)
[2017-01-01] MEDS: VITAMINS A AND D OINT TP SCH (08:04)
[2017-01-01] MEDS: CALCIUM CARBONATE 500 MG TAB.CHEW GT SCH (20:06)
[2017-01-01] MEDS: [UNRECOGNIZED DRUG - OTHER] GT SCH (20:06)
[2017-01-01] MEDS: FISH OIL GT SCH (20:06)
[2017-01-01 22:10] VITALS: BP 98/55
[2017-01-01] MEDS: DIABETICSOURCE AC 1000ML LIQUID GT PRN (22:45)
[2017-01-02] MEDS: BACLOFEN 10 MG TABLET GT SCH ×4 (00:17→17:49)
[2017-01-02] MEDS: BLOOD SUGAR DIAGNOSTIC 1 EACH STRIP VI SCH ×5 (00:22→23:59)
[2017-01-02] MEDS: INSULIN REGULAR, HUMAN 300 UNIT/3 ML VIAL SQ PRN ×3 (00:26→18:12)
--- NOTE | 2017-01-02 06:00 | NUR ---
found redness around g-tube site, will monitor and will endorse to am charge nurse.
[2017-01-02] MEDS: NUTRISOURCE FIBER 4 GM PACKET GT SCH ×3 (06:04→22:17)
[2017-01-02 08:14] VITALS: BP 100/44
[2017-01-02] MEDS: INSULIN DETEMIR 300 UNIT/3 ML CARTRIDGE SQ SCH ×2 (08:35→20:49)
[2017-01-02] MEDS: COD LIVER OIL/ZINC OXIDE OINT 113 GM TUBE TOP SCH ×2 (08:37→20:49)
[2017-01-02] MEDS: HYDROGEN PEROXIDE 3% 118 ML BOTTLE TP SCH ×2 (08:38→20:49)
[2017-01-02] MEDS: LEVETIRACETAM 500 MG/5 ML LIQUID UDC GT SCH ×2 (08:50→20:35)
[2017-01-02] MEDS: ACIDOPHILUS/BULGARICUS CHEW TAB GT SCH ×2 (08:50→20:35)
[2017-01-02] MEDS: PHENOBARBITAL GT SCH ×2 (08:51→20:38)
[2017-01-02] MEDS: FAMOTIDINE 20 MG TABLET GT SCH ×2 (08:51→20:38)
[2017-01-02] MEDS: VITAMINS A AND D OINT TP SCH (08:51)
[2017-01-02] MEDS: FUROSEMIDE 40 MG/4 ML GT SCH (08:51)
[2017-01-02] MEDS: POTASSIUM CHLORIDE 20 MEQ TAB.PRT.SR XX SCH ×2 (08:51→17:49)
[2017-01-02 20:28] VITALS: BP 105/59
[2017-01-02] MEDS: FISH OIL GT SCH (20:38)
[2017-01-02] MEDS: [UNRECOGNIZED DRUG - OTHER] GT SCH (20:38)
[2017-01-02] MEDS: CALCIUM CARBONATE 500 MG TAB.CHEW GT SCH (20:39)
--- NOTE | 2017-01-02 20:42 | NUR ---
Received pt on HT-50 vent with the following settings of AC-12, Vt-450, PEEP+5, FIO2-35%, trached with Shiley#6 DCT trach, which is in the place and secure. No of respiratory distress noted. Airway care done, pt responded to physical stimuli. HME changed. Resus. bag and back up trach at bedside. Vent and alarms on and audible.
[2017-01-03] MEDS: BACLOFEN 10 MG TABLET GT SCH ×4 (00:48→17:08)
[2017-01-03] MEDS: BLOOD SUGAR DIAGNOSTIC 1 EACH STRIP VI SCH ×3 (05:31→18:10)
[2017-01-03] MEDS: NUTRISOURCE FIBER 4 GM PACKET GT SCH ×3 (05:31→22:23)
[2017-01-03] MEDS: DIABETICSOURCE AC 1000ML LIQUID GT PRN (06:13)
[2017-01-03 08:00] VITALS: BP 99/49
[2017-01-03] MEDS: ACIDOPHILUS/BULGARICUS CHEW TAB GT SCH ×2 (08:50→20:35)
[2017-01-03] MEDS: FUROSEMIDE 40 MG/4 ML GT SCH (08:50)
[2017-01-03] MEDS: LEVETIRACETAM 500 MG/5 ML LIQUID UDC GT SCH ×2 (08:50→20:35)
[2017-01-03] MEDS: HYDROGEN PEROXIDE 3% 118 ML BOTTLE TP SCH ×2 (08:51→20:36)
[2017-01-03] MEDS: FAMOTIDINE 20 MG TABLET GT SCH ×2 (08:51→20:35)
[2017-01-03] MEDS: VITAMINS A AND D OINT TP SCH (08:51)
[2017-01-03] MEDS: PHENOBARBITAL GT SCH ×2 (08:51→20:35)
[2017-01-03] MEDS: COD LIVER OIL/ZINC OXIDE OINT 113 GM TUBE TOP SCH ×2 (08:51→20:36)
[2017-01-03] MEDS: POTASSIUM CHLORIDE 20 MEQ TAB.PRT.SR XX SCH ×2 (08:51→17:08)
[2017-01-03] MEDS: INSULIN DETEMIR 300 UNIT/3 ML CARTRIDGE SQ SCH ×2 (08:53→20:36)
[2017-01-03] MEDS: INSULIN REGULAR, HUMAN 300 UNIT/3 ML VIAL SQ PRN ×3 (12:01→17:08)
--- NOTE | 2017-01-03 19:48 | NUR ---
SEEN AND EXAMINED BY DR HICKMAN,WITH NO NEW ORDERS.
[2017-01-03 20:29] VITALS: BP 104/56
[2017-01-03] MEDS: CALCIUM CARBONATE 500 MG TAB.CHEW GT SCH (20:35)
[2017-01-03] MEDS: FISH OIL GT SCH (20:35)
[2017-01-03] MEDS: [UNRECOGNIZED DRUG - OTHER] GT SCH (20:35)
[2017-01-04] MEDS: BLOOD SUGAR DIAGNOSTIC 1 EACH STRIP VI SCH ×5 (00:37→23:24)
[2017-01-04] MEDS: BACLOFEN 10 MG TABLET GT SCH ×5 (00:37→23:24)
[2017-01-04] MEDS: INSULIN REGULAR, HUMAN 300 UNIT/3 ML VIAL SQ PRN ×3 (00:38→23:25)
--- NOTE | 2017-01-04 02:23 | NUR ---
PT ON CONT HT 50 VENT WITH SHILEY #[address] AND SECURED, PT DOES ASSIST AT TIMES, WITH GOOD COUGH EFFORT, SUCTIONED LIGHT PALE YELL TINGE SECRETIONS, CHANGE HME CHECK CUFF, NO VENT CHANGES MADE AT THIS TIME ,ALL ALARMS OK, AMBU BAG AT BEDSIDE, PT STABLE.Andi FERGUSON POUND KEEPER Addendum: 01/04/17 at 0225 by ETHEL FERGUSON RT Amended: Links added.
[2017-01-04] MEDS: NUTRISOURCE FIBER 4 GM PACKET GT SCH ×3 (05:51→22:27)
[2017-01-04] MEDS: FUROSEMIDE 40 MG/4 ML GT SCH (09:00)
[2017-01-04] MEDS: POTASSIUM CHLORIDE 20 MEQ TAB.PRT.SR XX SCH ×2 (09:00→17:32)
[2017-01-04] MEDS: VITAMINS A AND D OINT TP SCH (09:00)
[2017-01-04] MEDS: PHENOBARBITAL GT SCH ×2 (09:00→20:39)
[2017-01-04] MEDS: FAMOTIDINE 20 MG TABLET GT SCH ×2 (09:00→20:39)
[2017-01-04] MEDS: ACIDOPHILUS/BULGARICUS CHEW TAB GT SCH ×2 (09:00→20:39)
[2017-01-04] MEDS: HYDROGEN PEROXIDE 3% 118 ML BOTTLE TP SCH ×2 (09:00→20:42)
[2017-01-04] MEDS: LEVETIRACETAM 500 MG/5 ML LIQUID UDC GT SCH ×2 (09:00→20:39)
[2017-01-04] MEDS: COD LIVER OIL/ZINC OXIDE OINT 113 GM TUBE TOP SCH ×2 (09:00→20:42)
[2017-01-04] MEDS: INSULIN DETEMIR 300 UNIT/3 ML CARTRIDGE SQ SCH ×2 (09:00→20:40)
--- NOTE | 2017-01-04 11:30 | NUR ---
SEEN AND EXAMINED BY DYLAN COLLAZO,NO NEW ORDERS.
--- NOTE | 2017-01-04 17:53 | NUR ---
LEFT MESSAGE X [address] NESS,REGARDING THE CONSULT FOR GT SITE REDNESS,SPOKE TO
[2017-01-04] MEDS: [UNRECOGNIZED DRUG - OTHER] GT SCH (20:39)
[2017-01-04] MEDS: CALCIUM CARBONATE 500 MG TAB.CHEW GT SCH (20:39)
[2017-01-04] MEDS: FISH OIL GT SCH (20:39)
--- NOTE | 2017-01-05 00:31 | NUR ---
PT ON CONT HT 50 VENT WITH SHILEY # [address] AND SECURED, WITH SAME CURRENT SETTINGS, PT DOES ASSIST AT TIMES, WITH GOOD COUGH EFFORT, SUCTIONED LIGHT PALE YELL TINGE SECRETIONS, CHECK CUFF, CHANGE HME, ALL ALARMS OK, AMBU BAG AT BEDSIDE, NO VENT CHANGES MADE AT THIS TIME, PT STABLE. Andi CHAKRABORTYP Addendum: 01/05/17 at 0033 by ETHEL FERGUSON RT Amended: Links added.
[2017-01-05] MEDS: BACLOFEN 10 MG TABLET GT SCH ×4 (05:28→23:21)
[2017-01-05] MEDS: BLOOD SUGAR DIAGNOSTIC 1 EACH STRIP VI SCH ×4 (05:29→23:16)
[2017-01-05] MEDS: NUTRISOURCE FIBER 4 GM PACKET GT SCH ×3 (05:29→21:03)
[2017-01-05 08:00] VITALS: BP 115/64
--- NOTE | 2017-01-05 08:30 | NUR ---
Received a call from Dr. Frausto regarding patient's GI consult, secondary to G-tube peristomal inflammation. Relayed assessment findings of peristomal inflammation, redness and warm to touch with moderate purulent discharge. New orders given, noted and carried out. Dr. Frausto will see patient later today.
[2017-01-05] MEDS: FUROSEMIDE 40 MG/4 ML GT SCH (09:01)
[2017-01-05] MEDS: LEVETIRACETAM 500 MG/5 ML LIQUID UDC GT SCH ×2 (09:01→20:58)
[2017-01-05] MEDS: ACIDOPHILUS/BULGARICUS CHEW TAB GT SCH ×2 (09:01→20:58)
[2017-01-05] MEDS: PHENOBARBITAL GT SCH ×2 (09:03→20:58)
[2017-01-05] MEDS: FAMOTIDINE 20 MG TABLET GT SCH ×2 (09:03→20:59)
[2017-01-05] MEDS: POTASSIUM CHLORIDE 20 MEQ TAB.PRT.SR XX SCH ×2 (09:04→17:48)
[2017-01-05] MEDS: INSULIN DETEMIR 300 UNIT/3 ML CARTRIDGE SQ SCH ×2 (09:04→21:00)
[2017-01-05] MEDS: COD LIVER OIL/ZINC OXIDE OINT 113 GM TUBE TOP SCH ×2 (09:04→21:03)
[2017-01-05] MEDS: HYDROGEN PEROXIDE 3% 118 ML BOTTLE TP SCH ×2 (09:04→21:03)
[2017-01-05] MEDS: VITAMINS A AND D OINT TP SCH (09:04)
[2017-01-05] MEDS: INSULIN REGULAR, HUMAN 300 UNIT/3 ML VIAL SQ PRN ×3 (12:12→23:20)
--- NOTE | 2017-01-05 12:50 | NUR ---
Received a call from [employer] Pharmacist Emily regarding a new ATB order for Levaquin G-tube Pharmacy to dose. With a recommendation for Levaquin 500mg G-tube Q24hrs for 7days and requested MD's approval before a TO. Paged Dr. Frausto for the approval left message with remediation bioanalytics consultant, awaiting for a call back.
[2017-01-05] MEDS: DIABETICSOURCE AC 1000ML LIQUID GT PRN (14:34)
--- NOTE | 2017-01-05 15:32 | NUR ---
Dr. Frausto called back, approval for levaquin 500mg G-tube obtained, Noted and carried out.
[2017-01-05] MEDS: LEVOFLOXACIN 500 MG TABLET GT SCH (15:46)
--- NOTE | 2017-01-05 16:05 | NUR ---
Pharmacy Review for upcoming 01/22 IDT Meeting -VS: TEMP 97.2 HR 72 BP 115/64 -LABS: (from 12/17/16) WBC 4.9H/H 8.3/25.4PLT 148 NA 149K 3.8CL 112CO2 38BUN/SCR 23/1.0 BS 136 CA 8.4Phos 2.7Mg 2.5 -MEDICATION USE REVIEWED: > Pt is not on any anti-psych medication > On Phenobarbital 50mg BID, last level 20.7 (15-39) on 12/13. >On Keppra 750mg BID, Calculated CrCl 77.4 ml/min, last level was 43.8 (10-40) (06/16/16), renal function appropriate for dose > Pt insulin regimen: now on levemir 62 units HS, levemir 32 units AM + a custom sliding scale of regular insulin + 8units of regular insulin in addition. BS in December ranged 85-205. > PRN MED USAGE: (December) Tylenol 650mg mild-mod pain none used Tylenol 650mg for temp none used [place] 5/325mg for mod-severe pain (6-10) none used Artificial tears none used -NEW ORDERS NOTED: > Rx recommend to repeat phenobarbital level: was ordered, resulted, and within therapeutic range. > Levaquin 500mg q24hr for GT site abscess/infection x 7 days from 12/17-12/24 No further recs at this time, will continue to monitor Addendum: 01/23/17 at 1653 by ZENAIDA CONNOLLY ADM Update from 01/16/17 IDT Meeting: > Patient was reviewed and discussed, no acute medication concerns or changes were noted. Rx had previously rec'd for repeat phenobarb level, reported new level was within therapeutic range. > will continue to monitor and follow
--- NOTE | 2017-01-05 18:13 | NUR ---
RESIDENT REMAIN ON VENT HT-50 WITH SETTINGS OF AC 12,VT 450, PEEP 5 AND FIO2 35%. NO DISTRESS OBSERVED WITH O2 SATURATION OF 98%. SUCTIONED FOR MODERATE AMOUNT OF THICK WHITISH SECRETIONS. CHANGED HUMIDIFIER FILTER.
[2017-01-05] MEDS: [UNRECOGNIZED DRUG - OTHER] GT SCH (20:58)
[2017-01-05] MEDS: FISH OIL GT SCH (20:58)
[2017-01-05] MEDS: CALCIUM CARBONATE 500 MG TAB.CHEW GT SCH (20:59)
[2017-01-05 23:05] VITALS: BP 107/56
--- NOTE | 2017-01-05 23:20 | NUR ---
Started on levaquin via gt for GT site cellulitis, no adverse reactions noted, treatment done to gt site as ordered, kept skin clean and dry, kept patient clean and comfortable.
[2017-01-06] MEDS: NUTRISOURCE FIBER 4 GM PACKET GT SCH ×3 (05:08→21:15)
[2017-01-06] MEDS: BACLOFEN 10 MG TABLET GT SCH ×3 (05:08→17:45)
[2017-01-06] MEDS: BLOOD SUGAR DIAGNOSTIC 1 EACH STRIP VI SCH ×4 (05:08→23:23)
[2017-01-06] MEDS: INSULIN REGULAR, HUMAN 300 UNIT/3 ML VIAL SQ PRN ×3 (05:09→17:50)
[2017-01-06 08:00] VITALS: BP 94/50
[2017-01-06] MEDS: INSULIN DETEMIR 300 UNIT/3 ML CARTRIDGE SQ SCH ×2 (09:29→21:17)
[2017-01-06] MEDS: ACIDOPHILUS/BULGARICUS CHEW TAB GT SCH ×2 (09:44→21:14)
[2017-01-06] MEDS: LEVETIRACETAM 500 MG/5 ML LIQUID UDC GT SCH ×2 (09:44→21:14)
[2017-01-06] MEDS: PHENOBARBITAL GT SCH ×2 (09:44→21:14)
[2017-01-06] MEDS: FAMOTIDINE 20 MG TABLET GT SCH ×2 (09:44→21:14)
[2017-01-06] MEDS: FUROSEMIDE 40 MG/4 ML GT SCH (09:44)
[2017-01-06] MEDS: POTASSIUM CHLORIDE 20 MEQ TAB.PRT.SR XX SCH ×2 (09:45→17:45)
[2017-01-06] MEDS: VITAMINS A AND D OINT TP SCH (09:45)
[2017-01-06] MEDS: COD LIVER OIL/ZINC OXIDE OINT 113 GM TUBE TOP SCH ×2 (09:45→21:14)
[2017-01-06] MEDS: HYDROGEN PEROXIDE 3% 118 ML BOTTLE TP SCH ×2 (09:45→21:14)
[2017-01-06] MEDS: LEVOFLOXACIN 500 MG TABLET GT SCH (15:31)
--- NOTE | 2017-01-06 16:00 | NUR ---
Seen and examined by Dr. Frausto with new order noted and carried out.
[2017-01-06] MEDS: [UNRECOGNIZED DRUG - OTHER] GT SCH (21:14)
[2017-01-06] MEDS: FISH OIL GT SCH (21:14)
[2017-01-06] MEDS: CALCIUM CARBONATE 500 MG TAB.CHEW GT SCH (21:14)
[2017-01-06 22:22] VITALS: BP 98/49
--- NOTE | 2017-01-06 23:30 | NUR ---
Remains on Levaquin via gt for Gt site cellulitis, no adverse reactions noted, noted with drainage, treatment done to gt site as ordered, kept clean and comfortable.
[2017-01-07] MEDS: BLOOD SUGAR DIAGNOSTIC 1 EACH STRIP VI SCH ×3 (05:17→17:10)
[2017-01-07] MEDS: INSULIN REGULAR, HUMAN 300 UNIT/3 ML VIAL SQ PRN ×2 (05:18→17:11)
[2017-01-07] MEDS: NUTRISOURCE FIBER 4 GM PACKET GT SCH ×3 (05:20→21:33)
[2017-01-07] MEDS: BACLOFEN 10 MG TABLET GT SCH ×4 (05:20→17:10)
[2017-01-07 08:00] VITALS: BP 93/46
[2017-01-07] MEDS: FUROSEMIDE 40 MG/4 ML GT SCH (08:39)
[2017-01-07] MEDS: ACIDOPHILUS/BULGARICUS CHEW TAB GT SCH ×2 (08:39→20:44)
[2017-01-07] MEDS: FAMOTIDINE 20 MG TABLET GT SCH ×2 (08:39→20:45)
[2017-01-07] MEDS: PHENOBARBITAL GT SCH ×2 (08:39→20:45)
[2017-01-07] MEDS: LEVETIRACETAM 500 MG/5 ML LIQUID UDC GT SCH ×2 (08:39→20:44)
[2017-01-07] MEDS: VITAMINS A AND D OINT TP SCH (08:40)
[2017-01-07] MEDS: INSULIN DETEMIR 300 UNIT/3 ML CARTRIDGE SQ SCH ×2 (08:40→20:48)
[2017-01-07] MEDS: COD LIVER OIL/ZINC OXIDE OINT 113 GM TUBE TOP SCH ×2 (08:40→20:46)
[2017-01-07] MEDS: HYDROGEN PEROXIDE 3% 118 ML BOTTLE TP SCH ×2 (08:40→20:46)
[2017-01-07] MEDS: POTASSIUM CHLORIDE 20 MEQ TAB.PRT.SR XX SCH ×2 (08:40→16:37)
--- NOTE | 2017-01-07 11:00 | NUR ---
seen by dr shah with no new order.
--- NOTE | 2017-01-07 14:36 | NUR ---
Seen and examined by Dr. Frausto with no new order.
[2017-01-07] MEDS: LEVOFLOXACIN 500 MG TABLET GT SCH (15:30)
[2017-01-07] MEDS: [UNRECOGNIZED DRUG - OTHER] GT SCH (20:44)
[2017-01-07] MEDS: FISH OIL GT SCH (20:44)
[2017-01-07] MEDS: CALCIUM CARBONATE 500 MG TAB.CHEW GT SCH (20:45)
[2017-01-07 22:45] VITALS: BP 123/57
[2017-01-08] MEDS: BLOOD SUGAR DIAGNOSTIC 1 EACH STRIP VI SCH ×4 (00:16→18:03)
[2017-01-08] MEDS: BACLOFEN 10 MG TABLET GT SCH ×4 (00:16→17:56)
[2017-01-08] MEDS: NUTRISOURCE FIBER 4 GM PACKET GT SCH ×3 (05:56→21:53)
[2017-01-08] MEDS: INSULIN REGULAR, HUMAN 300 UNIT/3 ML VIAL SQ PRN ×3 (06:01→18:04)
[2017-01-08 08:00] VITALS: BP 114/48
[2017-01-08] MEDS: LEVETIRACETAM 500 MG/5 ML LIQUID UDC GT SCH ×2 (09:18→21:53)
[2017-01-08] MEDS: ACIDOPHILUS/BULGARICUS CHEW TAB GT SCH ×2 (09:18→21:53)
[2017-01-08] MEDS: FAMOTIDINE 20 MG TABLET GT SCH ×2 (09:19→21:53)
[2017-01-08] MEDS: POTASSIUM CHLORIDE 20 MEQ TAB.PRT.SR XX SCH ×2 (09:19→17:56)
[2017-01-08] MEDS: COD LIVER OIL/ZINC OXIDE OINT 113 GM TUBE TOP SCH ×2 (09:19→21:53)
[2017-01-08] MEDS: HYDROGEN PEROXIDE 3% 118 ML BOTTLE TP SCH ×2 (09:19→21:53)
[2017-01-08] MEDS: PHENOBARBITAL GT SCH ×2 (09:19→21:53)
[2017-01-08] MEDS: VITAMINS A AND D OINT TP SCH (09:19)
[2017-01-08] MEDS: FUROSEMIDE 40 MG/4 ML GT SCH (09:19)
[2017-01-08] MEDS: INSULIN DETEMIR 300 UNIT/3 ML CARTRIDGE SQ SCH ×2 (09:20→21:52)
[2017-01-08] MEDS: LEVOFLOXACIN 500 MG TABLET GT SCH (16:30)
--- NOTE | 2017-01-08 20:20 | NUR ---
Pt received on Continuous mechanical ventilation via trach, in semi fowlers position and has limited response to verbal stimuli. Pt is on [place] HT-50 vent with settings of A/C-12, VT-450, PEEP +5, FIO2-35%. Trach is a Shiley 6 DCT. Minimal leak technique used to assess cuff inflation. Trach is patent and secure. No irritation or redness noted around stoma or trach tie. Tolerating vent settings well. SpO2-98%. Sxn'd small amts of yellowish secretions. No signs or symptoms of respiratory distress noted. HME changed. PPE used. Vent alarm parameters checked, on and audible. Vent plugged into red emergency outlet. Bag/valve/mask and back up trach bedside. Will continue to monitor.
[2017-01-08] MEDS: [UNRECOGNIZED DRUG - OTHER] GT SCH (21:53)
[2017-01-08] MEDS: CALCIUM CARBONATE 500 MG TAB.CHEW GT SCH (21:53)
[2017-01-08] MEDS: FISH OIL GT SCH (21:53)
[2017-01-08 23:38] VITALS: BP 98/51
[2017-01-09] MEDS: BACLOFEN 10 MG TABLET GT SCH ×4 (00:34→17:22)
[2017-01-09] MEDS: BLOOD SUGAR DIAGNOSTIC 1 EACH STRIP VI SCH ×4 (00:34→17:20)
[2017-01-09] MEDS: NUTRISOURCE FIBER 4 GM PACKET GT SCH ×3 (05:57→21:22)
[2017-01-09 08:00] VITALS: BP 112/62
[2017-01-09] MEDS: INSULIN DETEMIR 300 UNIT/3 ML CARTRIDGE SQ SCH ×2 (08:21→21:29)
[2017-01-09] MEDS: LEVETIRACETAM 500 MG/5 ML LIQUID UDC GT SCH ×2 (08:29→21:21)
[2017-01-09] MEDS: ACIDOPHILUS/BULGARICUS CHEW TAB GT SCH ×2 (08:29→21:21)
[2017-01-09] MEDS: FAMOTIDINE 20 MG TABLET GT SCH ×2 (08:30→21:22)
[2017-01-09] MEDS: PHENOBARBITAL GT SCH ×2 (08:30→21:22)
[2017-01-09] MEDS: FUROSEMIDE 40 MG/4 ML GT SCH (08:30)
--- NOTE | 2017-01-09 08:30 | NUR ---
RECEIVED PT ON CONTINUOUS MECHANICAL VENTILATION WITH CURRENT VENT SETTINGS OF AC 12, VT 450, PEEP +5, FIO2 35%. NO CHANGES MADE AT THIS TIME. VENT CHECK DONE. ALARMS CHECKED AND ARE FUNCTIONING PROPERLY. NO S/S OF RESPIRATORY DISTRESS NOTED AT THIS TIME. TRACH IS PATENT AND SECURED WITH FOAM TRACH TIES. HME CHANGED. SUCTIONED A MODERATE AMOUNT OF THICK, PALE SECRETIONS. AMBU BAG AND BACK UP TRACH ARE AT BEDSIDE. VENT IS PLUGGED INTO RED EMERGENCY OUTLET. WILL CONTINUE TO MONITOR PT.
[2017-01-09] MEDS: VITAMINS A AND D OINT TP SCH (08:31)
[2017-01-09] MEDS: HYDROGEN PEROXIDE 3% 118 ML BOTTLE TP SCH ×2 (08:31→21:22)
[2017-01-09] MEDS: COD LIVER OIL/ZINC OXIDE OINT 113 GM TUBE TOP SCH ×2 (08:31→21:22)
[2017-01-09] MEDS: POTASSIUM CHLORIDE 20 MEQ TAB.PRT.SR XX SCH ×2 (08:31→17:22)
--- NOTE | 2017-01-09 10:45 | NUR ---
Seen and examined by Dr. Frausto for GI consult with no new orders.
[2017-01-09] MEDS: LEVOFLOXACIN 500 MG TABLET GT SCH (14:59)
[2017-01-09] MEDS: FISH OIL GT SCH (21:21)
[2017-01-09] MEDS: [UNRECOGNIZED DRUG - OTHER] GT SCH (21:21)
[2017-01-09] MEDS: CALCIUM CARBONATE 500 MG TAB.CHEW GT SCH (21:22)
[2017-01-09 23:17] VITALS: BP 96/60
[2017-01-10] MEDS: INSULIN REGULAR, HUMAN 300 UNIT/3 ML VIAL SQ PRN (00:14)
[2017-01-10] MEDS: BACLOFEN 10 MG TABLET GT SCH ×4 (00:15→17:45)
[2017-01-10] MEDS: BLOOD SUGAR DIAGNOSTIC 1 EACH STRIP VI SCH ×4 (00:16→17:49)
[2017-01-10] MEDS: NUTRISOURCE FIBER 4 GM PACKET GT SCH ×3 (05:47→21:41)
[2017-01-10 08:00] VITALS: BP 117/67
[2017-01-10] MEDS: LEVETIRACETAM 500 MG/5 ML LIQUID UDC GT SCH ×2 (08:29→21:39)
[2017-01-10] MEDS: ACIDOPHILUS/BULGARICUS CHEW TAB GT SCH ×2 (08:29→21:39)
[2017-01-10] MEDS: FUROSEMIDE 40 MG/4 ML GT SCH (08:30)
[2017-01-10] MEDS: FAMOTIDINE 20 MG TABLET GT SCH ×2 (08:30→21:39)
[2017-01-10] MEDS: PHENOBARBITAL GT SCH ×2 (08:30→21:39)
[2017-01-10] MEDS: INSULIN DETEMIR 300 UNIT/3 ML CARTRIDGE SQ SCH ×2 (08:34→21:40)
[2017-01-10] MEDS: COD LIVER OIL/ZINC OXIDE OINT 113 GM TUBE TOP SCH ×2 (08:34→21:40)
[2017-01-10] MEDS: VITAMINS A AND D OINT TP SCH (08:35)
[2017-01-10] MEDS: POTASSIUM CHLORIDE 20 MEQ TAB.PRT.SR XX SCH ×2 (08:35→17:45)
[2017-01-10] MEDS: HYDROGEN PEROXIDE 3% 118 ML BOTTLE TP SCH ×2 (08:35→21:40)
[2017-01-10] MEDS: DIABETICSOURCE AC 1000ML LIQUID GT PRN (12:17)
[2017-01-10] MEDS: LEVOFLOXACIN 500 MG TABLET GT SCH (15:30)
[2017-01-10] MEDS: [UNRECOGNIZED DRUG - OTHER] GT SCH (21:39)
[2017-01-10] MEDS: FISH OIL GT SCH (21:39)
[2017-01-10] MEDS: CALCIUM CARBONATE 500 MG TAB.CHEW GT SCH (21:39)
[2017-01-10 23:18] VITALS: BP 97/51
[2017-01-11] MEDS: BACLOFEN 10 MG TABLET GT SCH ×4 (00:05→17:04)
[2017-01-11] MEDS: BLOOD SUGAR DIAGNOSTIC 1 EACH STRIP VI SCH ×4 (00:06→17:04)
[2017-01-11] MEDS: INSULIN REGULAR, HUMAN 300 UNIT/3 ML VIAL SQ PRN ×2 (00:09→05:35)
[2017-01-11] MEDS: NUTRISOURCE FIBER 4 GM PACKET GT SCH ×3 (05:33→21:39)
[2017-01-11 08:00] VITALS: BP 109/63
[2017-01-11] MEDS: FUROSEMIDE 40 MG/4 ML GT SCH (08:41)
[2017-01-11] MEDS: FAMOTIDINE 20 MG TABLET GT SCH ×2 (08:43→21:39)
[2017-01-11] MEDS: HYDROGEN PEROXIDE 3% 118 ML BOTTLE TP SCH ×2 (08:43→21:39)
[2017-01-11] MEDS: COD LIVER OIL/ZINC OXIDE OINT 113 GM TUBE TOP SCH ×2 (08:43→21:39)
[2017-01-11] MEDS: VITAMINS A AND D OINT TP SCH (08:43)
[2017-01-11] MEDS: POTASSIUM CHLORIDE 20 MEQ TAB.PRT.SR XX SCH ×2 (08:43→17:04)
[2017-01-11] MEDS: PHENOBARBITAL GT SCH ×2 (08:43→21:39)
[2017-01-11] MEDS: INSULIN DETEMIR 300 UNIT/3 ML CARTRIDGE SQ SCH ×2 (08:46→21:37)
[2017-01-11] MEDS: ACIDOPHILUS/BULGARICUS CHEW TAB GT SCH ×2 (09:30→21:23)
[2017-01-11] MEDS: LEVETIRACETAM 500 MG/5 ML LIQUID UDC GT SCH ×2 (09:30→21:23)
--- NOTE | 2017-01-11 12:05 | NUR ---
PT RECEIVED ON HT-50 VENT, SETTINGS ARE AC 12, Vt 450, +5, 35% FIO2. NO S\S OF RESPIRATORY DISTRESS NOTED. SHILEY 6 TRACH IS PATENT AND SECURED WITH TIES. PT DOING WELL ON CURRENT SETTINGS. SUCTIONED MODERATE AMOUNTS OF YELLOW THICK SECRETIONS. HME CHANGED, BVM AND BACK UP TRACH AT BEDSIDE. ALARMS ARE ON AND AUDIBLE, WILL CONTINUE TO MONITOR.
[2017-01-11] MEDS: LEVOFLOXACIN 500 MG TABLET GT SCH (15:13)
[2017-01-11] MEDS: DIABETICSOURCE AC 1000ML LIQUID GT PRN (17:06)
--- NOTE | 2017-01-11 20:15 | NUR ---
Received pt on HT-50 vent with the following settings of AC-12, Vt-450, PEEP+5, FIO2-35%, trached with Shiley#6 DCT trach, which is in the place and secure properly. No sob noted. Airway care done, pt responded to physical stimuli. HME changed. Resus. bag and back up trach at bedside. Vent and alarms checked and reset.
[2017-01-11] MEDS: CALCIUM CARBONATE 500 MG TAB.CHEW GT SCH (21:39)
[2017-01-11] MEDS: FISH OIL GT SCH (21:39)
[2017-01-11] MEDS: [UNRECOGNIZED DRUG - OTHER] GT SCH (21:39)
[2017-01-11 23:27] VITALS: BP 100/56
[2017-01-12] MEDS: BACLOFEN 10 MG TABLET GT SCH ×5 (00:19→23:34)
[2017-01-12] MEDS: BLOOD SUGAR DIAGNOSTIC 1 EACH STRIP VI SCH ×4 (00:20→17:16)
[2017-01-12] MEDS: NUTRISOURCE FIBER 4 GM PACKET GT SCH ×3 (05:11→21:12)
--- NOTE | 2017-01-12 05:15 | NUR ---
Subacute nurse Alexandria called and asked to check pt in room 421 due to High PIP. When came to the room noticed that pt's face turning red and vent alarming with High PIP. Sx done, small amount of pale yellow secretion noted. Also noted auto cycling. Calibration done, no changes. Nurse Alexandria was helping to ventilate the pt with resus. bag. Also noted water in exhalation port. Vent circuit and filters changed. Calibration done one more time. After changes pt seemed more comfortable. No High PIP alarm noted. Nurse Alexandria notified.
[2017-01-12 08:01] VITALS: BP 102/50
[2017-01-12] MEDS: ACIDOPHILUS/BULGARICUS CHEW TAB GT SCH ×2 (08:12→21:09)
[2017-01-12] MEDS: LEVETIRACETAM 500 MG/5 ML LIQUID UDC GT SCH ×2 (08:12→21:09)
[2017-01-12] MEDS: FUROSEMIDE 40 MG/4 ML GT SCH (08:13)
[2017-01-12] MEDS: PHENOBARBITAL GT SCH ×2 (08:13→21:10)
[2017-01-12] MEDS: FAMOTIDINE 20 MG TABLET GT SCH ×2 (08:13→21:11)
[2017-01-12] MEDS: INSULIN DETEMIR 300 UNIT/3 ML CARTRIDGE SQ SCH ×2 (08:14→21:55)
[2017-01-12] MEDS: COD LIVER OIL/ZINC OXIDE OINT 113 GM TUBE TOP SCH ×2 (08:14→21:11)
[2017-01-12] MEDS: HYDROGEN PEROXIDE 3% 118 ML BOTTLE TP SCH ×2 (08:14→21:11)
[2017-01-12] MEDS: VITAMINS A AND D OINT TP SCH (08:14)
[2017-01-12] MEDS: POTASSIUM CHLORIDE 20 MEQ TAB.PRT.SR XX SCH ×2 (08:14→17:16)
[2017-01-12] MEDS: INSULIN REGULAR, HUMAN 300 UNIT/3 ML VIAL SQ PRN ×2 (12:48→17:16)
--- NOTE | 2017-01-12 15:19 | NUR ---
Seen and examined by Dr. Jorgensen, with no new order.
[2017-01-12 20:57] VITALS: BP 118/56
[2017-01-12] MEDS: [UNRECOGNIZED DRUG - OTHER] GT SCH (21:10)
[2017-01-12] MEDS: FISH OIL GT SCH (21:10)
[2017-01-12] MEDS: CALCIUM CARBONATE 500 MG TAB.CHEW GT SCH (21:11)
--- NOTE | 2017-01-12 21:28 | NUR ---
PT ON CONT HT 50 VENT WITH SHILEY # [address] AND SECURED, WITH SAME CURRENT VENT SETTINGS, PT DOES ASSIST AT TIMES, WITH GOOD COUGH EFFORT, SUCTIONED LIGHT PALE YELL TINGE SECRETIONS, WITH NO VENT CHANGES MADE AT THIS TIME, ALL ALARMS,OK CHECK CUFF, CHANGE HME, PT WITH NO RESP. DISTRESS NOTED. Andi CHAKRABORTYP Addendum: 01/12/17 at 2131 by ETHEL FERGUSON RT Amended: Links added.
[2017-01-13] MEDS: BLOOD SUGAR DIAGNOSTIC 1 EACH STRIP VI SCH ×4 (00:50→17:39)
[2017-01-13] MEDS: DIABETICSOURCE AC 1000ML LIQUID GT PRN (01:00)
[2017-01-13] MEDS: INSULIN REGULAR, HUMAN 300 UNIT/3 ML VIAL SQ PRN ×4 (01:08→17:39)
[2017-01-13] MEDS: NUTRISOURCE FIBER 4 GM PACKET GT SCH ×3 (06:00→21:21)
[2017-01-13] MEDS: BACLOFEN 10 MG TABLET GT SCH ×3 (06:00→17:39)
[2017-01-13 08:03] VITALS: BP 119/68
[2017-01-13] MEDS: INSULIN DETEMIR 300 UNIT/3 ML CARTRIDGE SQ SCH ×2 (08:10→21:26)
[2017-01-13] MEDS: LEVETIRACETAM 500 MG/5 ML LIQUID UDC GT SCH ×2 (08:19→21:16)
[2017-01-13] MEDS: ACIDOPHILUS/BULGARICUS CHEW TAB GT SCH ×2 (08:19→21:16)
[2017-01-13] MEDS: HYDROGEN PEROXIDE 3% 118 ML BOTTLE TP SCH ×2 (08:21→21:21)
[2017-01-13] MEDS: PHENOBARBITAL GT SCH ×2 (08:21→21:18)
[2017-01-13] MEDS: FAMOTIDINE 20 MG TABLET GT SCH ×2 (08:21→21:19)
[2017-01-13] MEDS: POTASSIUM CHLORIDE 20 MEQ TAB.PRT.SR XX SCH ×2 (08:21→17:39)
[2017-01-13] MEDS: FUROSEMIDE 40 MG/4 ML GT SCH (08:21)
[2017-01-13] MEDS: COD LIVER OIL/ZINC OXIDE OINT 113 GM TUBE TOP SCH ×2 (08:21→21:21)
[2017-01-13] MEDS: VITAMINS A AND D OINT TP SCH (08:21)
[2017-01-13 20:45] VITALS: BP 109/54
[2017-01-13] MEDS: [UNRECOGNIZED DRUG - OTHER] GT SCH (21:18)
[2017-01-13] MEDS: FISH OIL GT SCH (21:18)
[2017-01-13] MEDS: CALCIUM CARBONATE 500 MG TAB.CHEW GT SCH (21:19)
--- NOTE | 2017-01-13 22:27 | NUR ---
PT ON CONT HT 50 VENT WITH SHILEY # [address] AND SECURED, WITH SAME CURRENT VENT SETTINGS, PT DOES ASSIST AT TIMES, WITH GOOD COUGH EFFORT, SUCTIONED LIGHT PALE YELL TINGE SECRETIONS, CHECK CUFF, CHANGE HME AND PASCUAL, ALL ALARMS OK, AMBU BAG AT BEDSIDE, NO VENT CHANGES MADE AT THIS TIME, PIP 33-39CM APPROX, VENT PLUGGED INTO RED PLUG, WITH BACKUP TRACH, PT STABLE.Andi CHAKRABORTYP Addendum: 01/13/17 at 2229 by ETHEL FERGUSON RT Amended: Links added.
[2017-01-14] MEDS: BACLOFEN 10 MG TABLET GT SCH ×4 (00:38→17:04)
[2017-01-14] MEDS: DIABETICSOURCE AC 1000ML LIQUID GT PRN (02:43)
[2017-01-14] MEDS: NUTRISOURCE FIBER 4 GM PACKET GT SCH ×3 (05:14→21:41)
[2017-01-14] MEDS: BLOOD SUGAR DIAGNOSTIC 1 EACH STRIP VI SCH ×4 (05:15→17:05)
[2017-01-14] MEDS: INSULIN REGULAR, HUMAN 300 UNIT/3 ML VIAL SQ PRN ×3 (05:22→17:05)
[2017-01-14 08:02] VITALS: BP 107/62
[2017-01-14] MEDS: ACIDOPHILUS/BULGARICUS CHEW TAB GT SCH ×2 (09:08→20:08)
[2017-01-14] MEDS: LEVETIRACETAM 500 MG/5 ML LIQUID UDC GT SCH ×2 (09:08→20:08)
[2017-01-14] MEDS: FAMOTIDINE 20 MG TABLET GT SCH ×2 (09:09→20:09)
[2017-01-14] MEDS: PHENOBARBITAL GT SCH ×2 (09:09→20:09)
[2017-01-14] MEDS: FUROSEMIDE 40 MG/4 ML GT SCH (09:09)
[2017-01-14] MEDS: COD LIVER OIL/ZINC OXIDE OINT 113 GM TUBE TP SCH (09:10)
[2017-01-14] MEDS: HYDROGEN PEROXIDE 3% 118 ML BOTTLE TP SCH ×2 (09:10→20:11)
[2017-01-14] MEDS: VITAMINS A AND D OINT TP SCH (09:10)
[2017-01-14] MEDS: POTASSIUM CHLORIDE 20 MEQ TAB.PRT.SR XX SCH ×2 (09:10→17:04)
[2017-01-14] MEDS: INSULIN DETEMIR 300 UNIT/3 ML CARTRIDGE SQ SCH ×2 (09:10→20:26)
[2017-01-14] MEDS: COD LIVER OIL/ZINC OXIDE OINT 113 GM TUBE TOP SCH ×2 (09:10→20:09)
[2017-01-14] MEDS: [UNRECOGNIZED DRUG - OTHER] GT SCH (20:08)
[2017-01-14] MEDS: FISH OIL GT SCH (20:08)
[2017-01-14] MEDS: CALCIUM CARBONATE 500 MG TAB.CHEW GT SCH (20:09)
--- NOTE | 2017-01-14 20:30 | NUR ---
RECEIVED ON HT-50 VENTILATOR WITH CURRENT VENT SETTINGS OF AC 12, VT 450, PEEP +5, FIO2 35%. NO CHANGES MADE AT THIS TIME. VENT CHECK DONE. ALARMS CHECKED AND ARE FUNCTIONING PROPERLY. NO S/S OF RESPIRATORY DISTRESS NOTED AT THIS TIME. SH. 6DCT TRACH IS PATENT AND SECURED WITH FOAM TRACH TIES. HME CHANGED. SUCTIONED SMALL AMOUNT OF THICK, PALE SECRETIONS. BVM AND BACK UP TRACH ARE AT BEDSIDE. VENT IS PLUGGED INTO RED EMERGENCY OUTLET. WILL CONTINUE TO MONITOR PT THROUGHOUT SHIFT.
[2017-01-14 22:53] VITALS: BP 90/52
[2017-01-14 23:15] VITALS: BP 90/52
[2017-01-15] MEDS: BACLOFEN 10 MG TABLET GT SCH ×4 (00:40→17:04)
[2017-01-15] MEDS: BLOOD SUGAR DIAGNOSTIC 1 EACH STRIP VI SCH ×4 (00:41→17:32)
[2017-01-15] MEDS: DIABETICSOURCE AC 1000ML LIQUID GT PRN (02:56)
[2017-01-15] MEDS: NUTRISOURCE FIBER 4 GM PACKET GT SCH ×3 (05:24→21:49)
[2017-01-15 08:00] VITALS: BP 112/60
--- NOTE | 2017-01-15 08:16 | NUR ---
Pt received in bed, laying semi-Huff's, awake - eyes open, obtunded - unable to communicate, withdraws to physical stimuli.. Pt trach: Shiley [address]/secure with tie, no visible sign of skin irritation/breakdown noted under/around trach tie.. Trach site clean/dry, stoma appears normal, no discoloration noted.. Continuous mechanical ventilation, vent: HT-50 w/settings: A/C 12, Vt 450, PEEP +5, FiO2 35%, tolerating well, no changes made to vent settings at this time.. Vent alarms checked, alarms on/audible and functioning properly at this time.. BVM/back up trach at bedside.. No s/s of respiratory distress/S.O.B noted.. Will continue to monitor..
[2017-01-15] MEDS: LEVETIRACETAM 500 MG/5 ML LIQUID UDC GT SCH ×2 (08:32→20:21)
[2017-01-15] MEDS: ACIDOPHILUS/BULGARICUS CHEW TAB GT SCH ×2 (08:32→20:21)
[2017-01-15] MEDS: FAMOTIDINE 20 MG TABLET GT SCH ×2 (08:33→20:22)
[2017-01-15] MEDS: PHENOBARBITAL GT SCH ×2 (08:33→20:22)
[2017-01-15] MEDS: FUROSEMIDE 40 MG/4 ML GT SCH (08:33)
[2017-01-15] MEDS: HYDROGEN PEROXIDE 3% 118 ML BOTTLE TP SCH ×2 (08:34→20:22)
[2017-01-15] MEDS: INSULIN DETEMIR 300 UNIT/3 ML CARTRIDGE SQ SCH ×2 (08:34→20:13)
[2017-01-15] MEDS: COD LIVER OIL/ZINC OXIDE OINT 113 GM TUBE TP SCH (08:34)
[2017-01-15] MEDS: COD LIVER OIL/ZINC OXIDE OINT 113 GM TUBE TOP SCH ×2 (08:34→20:22)
[2017-01-15] MEDS: VITAMINS A AND D OINT TP SCH (08:35)
[2017-01-15] MEDS: POTASSIUM CHLORIDE 20 MEQ TAB.PRT.SR XX SCH ×2 (08:35→17:04)
--- NOTE | 2017-01-15 14:16 | NUR ---
SEEN BY HARSH FULLER.
[2017-01-15 20:00] VITALS: BP 111/57
[2017-01-15] MEDS: CALCIUM CARBONATE 500 MG TAB.CHEW GT SCH (20:22)
[2017-01-15] MEDS: [UNRECOGNIZED DRUG - OTHER] GT SCH (20:22)
[2017-01-15] MEDS: FISH OIL GT SCH (20:22)
[2017-01-16] MEDS: BACLOFEN 10 MG TABLET GT SCH ×4 (00:45→17:20)
[2017-01-16] MEDS: BLOOD SUGAR DIAGNOSTIC 1 EACH STRIP VI SCH ×4 (00:46→17:20)
[2017-01-16] MEDS: NUTRISOURCE FIBER 4 GM PACKET GT SCH ×3 (05:00→22:00)
[2017-01-16] MEDS: DIABETICSOURCE AC 1000ML LIQUID GT PRN (05:00)
[2017-01-16] MEDS: INSULIN DETEMIR 300 UNIT/3 ML CARTRIDGE SQ SCH ×2 (08:22→20:55)
[2017-01-16] MEDS: PHENOBARBITAL GT SCH ×2 (08:27→20:44)
[2017-01-16] MEDS: FUROSEMIDE 40 MG/4 ML GT SCH (08:27)
[2017-01-16] MEDS: ACIDOPHILUS/BULGARICUS CHEW TAB GT SCH ×2 (08:27→20:42)
[2017-01-16] MEDS: LEVETIRACETAM 500 MG/5 ML LIQUID UDC GT SCH ×2 (08:27→20:42)
[2017-01-16] MEDS: HYDROGEN PEROXIDE 3% 118 ML BOTTLE TP SCH ×2 (08:28→20:45)
[2017-01-16] MEDS: POTASSIUM CHLORIDE 20 MEQ TAB.PRT.SR XX SCH ×2 (08:28→17:20)
[2017-01-16] MEDS: VITAMINS A AND D OINT TP SCH (08:28)
[2017-01-16] MEDS: FAMOTIDINE 20 MG TABLET GT SCH ×2 (08:28→20:44)
[2017-01-16] MEDS: COD LIVER OIL/ZINC OXIDE OINT 113 GM TUBE TP SCH (08:28)
[2017-01-16] MEDS: COD LIVER OIL/ZINC OXIDE OINT 113 GM TUBE TOP SCH ×2 (08:28→20:45)
[2017-01-16 11:05] VITALS: BP 106/49
[2017-01-16] MEDS: INSULIN REGULAR, HUMAN 300 UNIT/3 ML VIAL SQ PRN (12:38)
--- NOTE | 2017-01-16 14:32 | NUR ---
INTERDISCIPLINARY PLAN OF CARE CONFERENCE was held today. Patient's father was invited to the meeting, but he was unable to attend. Dr. Gilbert and the Interdisciplinary Team reviewed the current plan of care in detail. RN provided information on patient's current medical condition and medications. See RN IDT conference notes. No major changes were reported at this time. See also all other disciplines IDT notes and physician's progress notes for additional details.
--- NOTE | 2017-01-16 16:00 | NUR ---
Left message for Dr. Frausto regarding GI consult for Gtube site redness re appearing.
--- NOTE | 2017-01-16 19:30 | NUR ---
Seen and examined by Dr. Gilbert, with no new orders.
--- NOTE | 2017-01-16 20:20 | NUR ---
Received pt on HT-50 vent with the following settings of AC-12, Vt-450, PEEP+5, FIO2-35%, trached with Shiley#6 DCT trach, which is in the place and secure. No s/s of respiratory distress noted. Airway care done, pt responded to physical stimuli. HME changed. Resus. bag and back up trach at bedside. Vent and alarms on and audible.
[2017-01-16] MEDS: FISH OIL GT SCH (20:43)
[2017-01-16] MEDS: [UNRECOGNIZED DRUG - OTHER] GT SCH (20:43)
[2017-01-16] MEDS: CALCIUM CARBONATE 500 MG TAB.CHEW GT SCH (20:45)
--- NOTE | 2017-01-16 21:34 | NUR ---
Seen and examined by Dr. Gilbert, with new orders noted and carried out.
[2017-01-16 22:34] VITALS: BP 98/49
[2017-01-17] MEDS: BLOOD SUGAR DIAGNOSTIC 1 EACH STRIP VI SCH ×4 (00:19→17:04)
[2017-01-17] MEDS: BACLOFEN 10 MG TABLET GT SCH ×4 (00:19→17:04)
[2017-01-17] MEDS: INSULIN REGULAR, HUMAN 300 UNIT/3 ML VIAL SQ PRN ×4 (00:22→17:06)
[2017-01-17] MEDS: DIABETICSOURCE AC 1000ML LIQUID GT PRN (05:00)
[2017-01-17] MEDS: NUTRISOURCE FIBER 4 GM PACKET GT SCH ×3 (05:06→21:07)
--- NOTE | 2017-01-17 07:00 | NUR ---
Pt received on Continuous mechanical ventilation via trach, in semi fowlers position and has limited response to verbal stimuli. Pt is on [place] HT-50 vent with settings of A/C-12, VT-450, PEEP +5, FIO2-35%. Trach is a Shiley 6 DCT. Minimal leak technique used to assess cuff inflation. Trach is patent and secure. No irritation or redness noted around stoma or trach tie. Tolerating vent settings well. SpO2-98%. Sxn'd small amts of yellowish/white secretions. No signs or symptoms of respiratory distress noted. HME changed. PPE used. Vent alarm parameters checked, on and audible. Vent plugged into red emergency outlet. Bag/valve/mask and back up trach bedside. Will continue to monitor.
[2017-01-17 08:00] VITALS: BP 130/54
[2017-01-17] MEDS: ACIDOPHILUS/BULGARICUS CHEW TAB GT SCH ×2 (08:38→21:05)
[2017-01-17] MEDS: LEVETIRACETAM 500 MG/5 ML LIQUID UDC GT SCH ×2 (08:38→21:05)
[2017-01-17] MEDS: FAMOTIDINE 20 MG TABLET GT SCH ×2 (08:39→21:06)
[2017-01-17] MEDS: FUROSEMIDE 40 MG/4 ML GT SCH (08:39)
[2017-01-17] MEDS: PHENOBARBITAL GT SCH ×2 (08:39→21:06)
[2017-01-17] MEDS: COD LIVER OIL/ZINC OXIDE OINT 113 GM TUBE TOP SCH ×2 (08:40→21:07)
[2017-01-17] MEDS: COD LIVER OIL/ZINC OXIDE OINT 113 GM TUBE TP SCH (08:40)
[2017-01-17] MEDS: HYDROGEN PEROXIDE 3% 118 ML BOTTLE TP SCH ×2 (08:40→21:07)
[2017-01-17] MEDS: VITAMINS A AND D OINT TP SCH (08:41)
[2017-01-17] MEDS: POTASSIUM CHLORIDE 20 MEQ TAB.PRT.SR XX SCH ×2 (08:41→17:04)
[2017-01-17] MEDS: INSULIN DETEMIR 300 UNIT/3 ML CARTRIDGE SQ SCH ×2 (08:42→20:58)
--- NOTE | 2017-01-17 15:18 | NUR ---
Left message with Aster from Dr. Frausto office regarding GI follow up (Gtube site redness).
[2017-01-17 21:02] VITALS: BP 105/49
[2017-01-17] MEDS: [UNRECOGNIZED DRUG - OTHER] GT SCH (21:05)
[2017-01-17] MEDS: FISH OIL GT SCH (21:05)
[2017-01-17] MEDS: CALCIUM CARBONATE 500 MG TAB.CHEW GT SCH (21:07)
--- NOTE | 2017-01-17 22:00 | NUR ---
GT site still with redness and drainage , renewed treatment with stomahesive powder as moisture barrier. kept clean and comfortable.
[2017-01-18] MEDS: BACLOFEN 10 MG TABLET GT SCH ×4 (00:10→17:02)
[2017-01-18] MEDS: BLOOD SUGAR DIAGNOSTIC 1 EACH STRIP VI SCH ×4 (00:12→17:02)
[2017-01-18] MEDS: INSULIN REGULAR, HUMAN 300 UNIT/3 ML VIAL SQ PRN ×4 (00:15→17:07)
--- NOTE | 2017-01-18 02:43 | NUR ---
PT ON CONT HT 50 VENT WITH SHILEY # [address] AND SECURED, WITH SAME CURRENT VENT SETTINGS, WITH GOOD COUGH EFFORT, SUCTIONED LIGHT PALE YELL TINGE SECRETIONS, CHECK CUFF, CHANGE HME, ALL ALARMS OK, AMBU BAG AT BEDSIDE, NO VENT CHANGES MADE AT THIS TIME.Andi FERGUSON RCP Addendum: 01/18/17 at 0246 by ETHEL FERGUSON RT Amended: Links added.
[2017-01-18] MEDS: NUTRISOURCE FIBER 4 GM PACKET GT SCH ×3 (05:23→21:00)
[2017-01-18] MEDS: DIABETICSOURCE AC 1000ML LIQUID GT PRN (05:27)
[2017-01-18 08:00] VITALS: BP 114/61
[2017-01-18] MEDS: LEVETIRACETAM 500 MG/5 ML LIQUID UDC GT SCH ×2 (09:21→20:57)
[2017-01-18] MEDS: ACIDOPHILUS/BULGARICUS CHEW TAB GT SCH ×2 (09:21→20:57)
[2017-01-18] MEDS: PHENOBARBITAL GT SCH ×2 (09:22→20:57)
[2017-01-18] MEDS: COD LIVER OIL/ZINC OXIDE OINT 113 GM TUBE TP SCH (09:22)
[2017-01-18] MEDS: COD LIVER OIL/ZINC OXIDE OINT 113 GM TUBE TOP SCH ×2 (09:22→20:58)
[2017-01-18] MEDS: FUROSEMIDE 40 MG/4 ML GT SCH (09:22)
[2017-01-18] MEDS: FAMOTIDINE 20 MG TABLET GT SCH ×2 (09:22→20:58)
[2017-01-18] MEDS: VITAMINS A AND D OINT TP SCH (09:22)
[2017-01-18] MEDS: POTASSIUM CHLORIDE 20 MEQ TAB.PRT.SR XX SCH ×2 (09:23→16:19)
[2017-01-18] MEDS: HYDROGEN PEROXIDE 3% 118 ML BOTTLE TP SCH ×2 (09:23→20:58)
[2017-01-18] MEDS: INSULIN DETEMIR 300 UNIT/3 ML CARTRIDGE SQ SCH ×2 (09:29→21:01)
--- NOTE | 2017-01-18 10:25 | NUR ---
Trached resident was endorsed on Continuous Mechanical Ventilation with ordered vent settings of AC 12 VT 450 PEEP 5 FIO2 35%. No signs of respiratory distress noted at this time. She is trached with a shiley #6 DCT; PULPER used for cuff inflation. HME was changed without complications. Alarm parameters assessed and are on/audible. Ambubag and spare trach are at bedside.
--- NOTE | 2017-01-18 14:37 | NUR ---
SEEN BY HARSH FULLER.
[2017-01-18 20:55] VITALS: BP 108/57
[2017-01-18] MEDS: [UNRECOGNIZED DRUG - OTHER] GT SCH (20:57)
[2017-01-18] MEDS: FISH OIL GT SCH (20:57)
[2017-01-18] MEDS: CALCIUM CARBONATE 500 MG TAB.CHEW GT SCH (20:58)
[2017-01-19] MEDS: BLOOD SUGAR DIAGNOSTIC 1 EACH STRIP VI SCH ×4 (00:31→17:11)
[2017-01-19] MEDS: BACLOFEN 10 MG TABLET GT SCH ×4 (00:31→17:11)
[2017-01-19] MEDS: INSULIN REGULAR, HUMAN 300 UNIT/3 ML VIAL SQ PRN ×4 (00:33→17:11)
[2017-01-19] MEDS: NUTRISOURCE FIBER 4 GM PACKET GT SCH ×3 (05:55→21:41)
[2017-01-19] MEDS: DIABETICSOURCE AC 1000ML LIQUID GT PRN (07:15)
[2017-01-19] MEDS: LEVETIRACETAM 500 MG/5 ML LIQUID UDC GT SCH ×2 (08:53→21:39)
[2017-01-19] MEDS: FAMOTIDINE 20 MG TABLET GT SCH ×2 (08:53→21:41)
[2017-01-19] MEDS: ACIDOPHILUS/BULGARICUS CHEW TAB GT SCH ×2 (08:53→21:39)
[2017-01-19] MEDS: FUROSEMIDE 40 MG/4 ML GT SCH (08:53)
[2017-01-19] MEDS: PHENOBARBITAL GT SCH ×2 (08:53→21:40)
[2017-01-19] MEDS: COD LIVER OIL/ZINC OXIDE OINT 113 GM TUBE TOP SCH ×2 (08:53→21:41)
[2017-01-19] MEDS: COD LIVER OIL/ZINC OXIDE OINT 113 GM TUBE TP SCH (08:54)
[2017-01-19] MEDS: POTASSIUM CHLORIDE 20 MEQ TAB.PRT.SR XX SCH ×2 (08:54→17:11)
[2017-01-19] MEDS: VITAMINS A AND D OINT TP SCH (08:54)
[2017-01-19] MEDS: HYDROGEN PEROXIDE 3% 118 ML BOTTLE TP SCH ×2 (08:54→21:41)
[2017-01-19] MEDS: INSULIN DETEMIR 300 UNIT/3 ML CARTRIDGE SQ SCH ×2 (08:57→21:45)
[2017-01-19 11:17] VITALS: BP 116/50
[2017-01-19 20:42] VITALS: BP 103/51
[2017-01-19] MEDS: FISH OIL GT SCH (21:40)
[2017-01-19] MEDS: [UNRECOGNIZED DRUG - OTHER] GT SCH (21:40)
[2017-01-19] MEDS: CALCIUM CARBONATE 500 MG TAB.CHEW GT SCH (21:41)
[2017-01-20] MEDS: BACLOFEN 10 MG TABLET GT SCH ×4 (00:50→17:03)
[2017-01-20] MEDS: BLOOD SUGAR DIAGNOSTIC 1 EACH STRIP VI SCH ×4 (00:50→17:40)
[2017-01-20] MEDS: INSULIN REGULAR, HUMAN 300 UNIT/3 ML VIAL SQ PRN ×4 (00:51→17:40)
[2017-01-20] MEDS: NUTRISOURCE FIBER 4 GM PACKET GT SCH ×3 (05:49→21:57)
[2017-01-20] MEDS: DIABETICSOURCE AC 1000ML LIQUID GT PRN (07:13)
[2017-01-20 08:00] VITALS: BP 103/57
[2017-01-20] MEDS: INSULIN DETEMIR 300 UNIT/3 ML CARTRIDGE SQ SCH ×2 (09:03→20:30)
[2017-01-20] MEDS: FAMOTIDINE 20 MG TABLET GT SCH ×2 (09:04→20:31)
[2017-01-20] MEDS: LEVETIRACETAM 500 MG/5 ML LIQUID UDC GT SCH ×2 (09:04→20:31)
[2017-01-20] MEDS: ACIDOPHILUS/BULGARICUS CHEW TAB GT SCH ×2 (09:04→20:31)
[2017-01-20] MEDS: FUROSEMIDE 40 MG/4 ML GT SCH (09:04)
[2017-01-20] MEDS: PHENOBARBITAL GT SCH ×2 (09:04→20:31)
[2017-01-20] MEDS: VITAMINS A AND D OINT TP SCH (09:05)
[2017-01-20] MEDS: HYDROGEN PEROXIDE 3% 118 ML BOTTLE TP SCH ×2 (09:05→20:31)
[2017-01-20] MEDS: POTASSIUM CHLORIDE 20 MEQ TAB.PRT.SR XX SCH ×2 (09:05→17:03)
[2017-01-20] MEDS: COD LIVER OIL/ZINC OXIDE OINT 113 GM TUBE TP SCH (09:05)
[2017-01-20] MEDS: COD LIVER OIL/ZINC OXIDE OINT 113 GM TUBE TOP SCH ×2 (09:05→20:31)
--- NOTE | 2017-01-20 09:20 | NUR ---
RECEIVED PATIENT ON A MECHANICAL VENTILATOR WITH THE FOLLOWING SETTINGS THAT ARE CHARTED ON THE MECHANICAL VENT NOTES. DAILY HME CHANGED. WILL CHANGE VENT CIRCUIT BEFORE THE END OF SHIFT. SUCTIONED SMALL AMOUNTS OF WHITE AND YELLOW SECRETIONS. TRACH IS PATENT AND IS PROPERLY SECURED WITH TRACH TIES. SPARE TRACH AND BMV IS BY BEDSIDE. ALARMS ARE ON AND AUDIBLE. VENT PLUG IS PLUGGED INTO RED OUTLET. NO SOB NOTED AT THIS TIME. WILL CONTINUE TO MONITOR PATIENT THROUGHOUT SHIFT.
--- NOTE | 2017-01-20 11:53 | NUR ---
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
[2017-01-20] MEDS: BACITRACIN TP SCH ×2 (12:57→20:31)
[2017-01-20] MEDS: CALCIUM CARBONATE 500 MG TAB.CHEW GT SCH (20:31)
[2017-01-20] MEDS: [UNRECOGNIZED DRUG - OTHER] GT SCH (20:31)
[2017-01-20] MEDS: FISH OIL GT SCH (20:31)
[2017-01-20 22:24] VITALS: BP 115/63
[2017-01-21] MEDS: BLOOD SUGAR DIAGNOSTIC 1 EACH STRIP VI SCH ×4 (00:14→17:45)
[2017-01-21] MEDS: BACLOFEN 10 MG TABLET GT SCH ×4 (00:14→17:45)
[2017-01-21] MEDS: INSULIN REGULAR, HUMAN 300 UNIT/3 ML VIAL SQ PRN ×3 (00:15→17:45)
[2017-01-21] MEDS: NUTRISOURCE FIBER 4 GM PACKET GT SCH ×3 (05:38→22:28)
[2017-01-21 08:00] VITALS: BP 117/63
[2017-01-21] MEDS: FAMOTIDINE 20 MG TABLET GT SCH ×2 (08:11→20:30)
[2017-01-21] MEDS: PHENOBARBITAL GT SCH ×2 (08:11→20:32)
[2017-01-21] MEDS: FUROSEMIDE 40 MG/4 ML GT SCH (08:11)
[2017-01-21] MEDS: ACIDOPHILUS/BULGARICUS CHEW TAB GT SCH ×2 (08:11→20:30)
[2017-01-21] MEDS: LEVETIRACETAM 500 MG/5 ML LIQUID UDC GT SCH ×2 (08:11→20:30)
[2017-01-21] MEDS: POTASSIUM CHLORIDE 20 MEQ TAB.PRT.SR XX SCH ×2 (08:12→17:45)
[2017-01-21] MEDS: INSULIN DETEMIR 300 UNIT/3 ML CARTRIDGE SQ SCH ×2 (08:12→20:28)
[2017-01-21] MEDS: VITAMINS A AND D OINT TP SCH (08:12)
[2017-01-21] MEDS: HYDROGEN PEROXIDE 3% 118 ML BOTTLE TP SCH ×2 (08:12→20:31)
[2017-01-21] MEDS: COD LIVER OIL/ZINC OXIDE OINT 113 GM TUBE TP SCH (08:12)
[2017-01-21] MEDS: COD LIVER OIL/ZINC OXIDE OINT 113 GM TUBE TOP SCH ×2 (08:12→20:31)
[2017-01-21] MEDS: BACITRACIN TP SCH ×2 (08:12→20:31)
[2017-01-21] MEDS: DIABETICSOURCE AC 1000ML LIQUID GT PRN (12:23)
--- NOTE | 2017-01-21 20:05 | NUR ---
Pt received on Continuous mechanical ventilation via trach, in semi fowlers position and has limited response to verbal stimuli. Pt is on [place] HT-50 vent with settings of A/C-12, VT-450, PEEP +5, FIO2-35%. Trach is a Shiley 6 DCT. Minimal leak technique used to assess cuff inflation. Trach is patent and secure. No irritation or redness noted around stoma or trach tie. Tolerating vent settings well. SpO2-98%. Sxn'd small amts of yellowish/white secretions. No signs or symptoms of respiratory distress noted. HME & In-line suction catheter changed. PPE used. Vent alarm parameters checked, on and audible. Vent plugged into red emergency outlet. Bag/valve/mask and back up trach bedside. Will continue to monitor.
[2017-01-21 20:30] VITALS: BP 110/65
[2017-01-21] MEDS: FISH OIL GT SCH (20:30)
[2017-01-21] MEDS: [UNRECOGNIZED DRUG - OTHER] GT SCH (20:30)
[2017-01-21] MEDS: CALCIUM CARBONATE 500 MG TAB.CHEW GT SCH (20:31)
[2017-01-22] MEDS: BLOOD SUGAR DIAGNOSTIC 1 EACH STRIP VI SCH ×5 (00:34→23:56)
[2017-01-22] MEDS: BACLOFEN 10 MG TABLET GT SCH ×5 (00:34→23:56)
[2017-01-22] MEDS: DIABETICSOURCE AC 1000ML LIQUID GT PRN (04:15)
[2017-01-22] MEDS: NUTRISOURCE FIBER 4 GM PACKET GT SCH ×3 (05:58→21:00)
[2017-01-22 07:19] LABS: BILIRUBIN,TOTAL 0.3 mg/dL (0.2-1.0); CREATININE 0.9 mg/dL (0.6-1.3); POTASSIUM 4.3 mmol/L (3.5-5.1); TOTAL PROTEIN, SERUM 8.3 g/dL (6.4-8.2)
[2017-01-22 07:38] LABS: BASOPHILS % (AUTO) 0.7 % (0.0-2.0); EOSINOPHILS # (AUTO) 0.2 K/uL (0.0-0.7); EOSINOPHILS % (AUTO) 5.5 % (0.0-7.0); HEMATOCRIT 26.6 % (37-47); HEMOGLOBIN 8.4 G/DL (12.0-16.0); LYMPHOCYTES # (AUTO) 1.4 K/UL (0.8-4.8); LYMPHOCYTES % (AUTO) 41.1 % (20.5-51.5); MEAN CORPUSCULAR HGB CONC 32 g/dL (32.0-37.0); MEAN CORPUSCULAR VOLUME 100.9 FL (81.0-99.0); MONOCYTES # (AUTO) 0.3 K/UL (0.1-1.30); MONOCYTES % (AUTO) 7.5 % (0.0-11.0); NEUTROPHILS # (AUTO) 1.6 K/UL (1.8-8.9); NEUTROPHILS % (AUTO) 45.2 % (38.5-71.5); RED BLOOD CELL COUNT(AUTO) 2.64 MIL/UL (4.2-5.4)
[2017-01-22 07:40] LABS: PLATELET COUNT (AUTO) 103 K/UL (150-450); WHITE BLOOD COUNT (AUTO) 3.5 K/UL (4.0-11.2)
[2017-01-22 08:00] VITALS: BP 114/57
[2017-01-22] MEDS: PHENOBARBITAL GT SCH ×2 (08:15→20:52)
[2017-01-22] MEDS: FUROSEMIDE 40 MG/4 ML GT SCH (08:15)
[2017-01-22] MEDS: LEVETIRACETAM 500 MG/5 ML LIQUID UDC GT SCH ×2 (08:15→20:55)
[2017-01-22] MEDS: FAMOTIDINE 20 MG TABLET GT SCH ×2 (08:15→20:55)
[2017-01-22] MEDS: ACIDOPHILUS/BULGARICUS CHEW TAB GT SCH ×2 (08:15→20:51)
[2017-01-22] MEDS: VITAMINS A AND D OINT TP SCH (08:16)
[2017-01-22] MEDS: COD LIVER OIL/ZINC OXIDE OINT 113 GM TUBE TP SCH (08:16)
[2017-01-22] MEDS: HYDROGEN PEROXIDE 3% 118 ML BOTTLE TP SCH ×2 (08:16→20:55)
[2017-01-22] MEDS: COD LIVER OIL/ZINC OXIDE OINT 113 GM TUBE TOP SCH ×2 (08:16→20:55)
[2017-01-22] MEDS: POTASSIUM CHLORIDE 20 MEQ TAB.PRT.SR XX SCH ×2 (08:16→17:13)
[2017-01-22] MEDS: INSULIN DETEMIR 300 UNIT/3 ML CARTRIDGE SQ SCH ×2 (08:16→20:52)
[2017-01-22] MEDS: BACITRACIN TP SCH ×2 (08:16→20:55)
[2017-01-22] MEDS: INSULIN REGULAR, HUMAN 300 UNIT/3 ML VIAL SQ PRN (17:13)
--- NOTE | 2017-01-22 18:55 | NUR ---
Pt received on Continuous mechanical ventilation via trach, in semi fowlers position and has limited response to verbal stimuli. Pt is on [place] HT-50 vent with settings of A/C-12, VT-450, PEEP +5, FIO2-35%. Tolerating vent settings well. SpO2-98%. Sxn'd small amts of yellowish/white secretions. No signs or symptoms of respiratory distress noted. Trach is a Xcela[place]oley 6 DCT. Minimal leak technique used to assess cuff inflation. Trach is patent and secure. No irritation or redness noted around stoma or trach tie. HME changed. PPE used. Vent alarm parameters checked, on and audible. Vent plugged into red emergency outlet. Bag/valve/mask and back up trach bedside. Will continue to monitor.
[2017-01-22 20:32] VITALS: BP 101/62
[2017-01-22] MEDS: [UNRECOGNIZED DRUG - OTHER] GT SCH (20:55)
[2017-01-22] MEDS: FISH OIL GT SCH (20:55)
[2017-01-22] MEDS: CALCIUM CARBONATE 500 MG TAB.CHEW GT SCH (20:55)
[2017-01-23] MEDS: BLOOD SUGAR DIAGNOSTIC 1 EACH STRIP VI SCH ×3 (05:15→17:09)
[2017-01-23] MEDS: NUTRISOURCE FIBER 4 GM PACKET GT SCH ×3 (05:15→21:00)
[2017-01-23] MEDS: BACLOFEN 10 MG TABLET GT SCH ×3 (05:15→17:08)
[2017-01-23] MEDS: DIABETICSOURCE AC 1000ML LIQUID GT PRN (07:15)
[2017-01-23 08:00] VITALS: BP 110/57
[2017-01-23] MEDS: INSULIN DETEMIR 300 UNIT/3 ML CARTRIDGE SQ SCH ×2 (08:19→20:47)
[2017-01-23] MEDS: ACIDOPHILUS/BULGARICUS CHEW TAB GT SCH ×2 (08:29→20:47)
[2017-01-23] MEDS: BACITRACIN TP SCH ×2 (08:29→20:53)
[2017-01-23] MEDS: FAMOTIDINE 20 MG TABLET GT SCH ×2 (08:29→20:53)
[2017-01-23] MEDS: LEVETIRACETAM 500 MG/5 ML LIQUID UDC GT SCH ×2 (08:29→20:47)
[2017-01-23] MEDS: COD LIVER OIL/ZINC OXIDE OINT 113 GM TUBE TP SCH (08:29)
[2017-01-23] MEDS: FUROSEMIDE 40 MG/4 ML GT SCH (08:29)
[2017-01-23] MEDS: COD LIVER OIL/ZINC OXIDE OINT 113 GM TUBE TOP SCH ×2 (08:29→20:53)
[2017-01-23] MEDS: PHENOBARBITAL GT SCH ×2 (08:29→20:53)
[2017-01-23] MEDS: VITAMINS A AND D OINT TP SCH (08:30)
[2017-01-23] MEDS: POTASSIUM CHLORIDE 20 MEQ TAB.PRT.SR XX SCH ×2 (08:30→17:08)
[2017-01-23] MEDS: HYDROGEN PEROXIDE 3% 118 ML BOTTLE TP SCH ×2 (08:30→20:53)
[2017-01-23] MEDS ORDERED: CEPHALEXIN MONOHYDRATE 500 MG CAPSULE GT ONE (17:00)
--- NOTE | 2017-01-23 17:03 | NUR ---
Trached resident was endorsed on Continuous Mechanical Ventilation with ordered vent settings of AC 12 VT 450 PEEP 5 FIO2 35% No signs of respiratory distress noted at this time. She is trached with a shiley #6 DCT; FREIGHT TEAM ASSOCIATE used for cuff inflation. HME was changed without complications. Alarm parameters assessed and are on/audible. Spare trach at bedside.
[2017-01-23 20:50] VITALS: BP 101/62
[2017-01-23] MEDS: [UNRECOGNIZED DRUG - OTHER] GT SCH (20:51)
[2017-01-23] MEDS: FISH OIL GT SCH (20:51)
[2017-01-23] MEDS: CALCIUM CARBONATE 500 MG TAB.CHEW GT SCH (20:53)
--- NOTE | 2017-01-23 21:03 | NUR ---
Seen and examined by Dr. Gilbert with new order for BMP on 01/29/17 noted and carried out.
[2017-01-23] MEDS ORDERED: CEPHALEXIN MONOHYDRATE 500 MG CAPSULE GT SCH (22:00)
--- NOTE | 2017-01-23 22:33 | NUR ---
PT ON CONT HT 500 VENT WITH SHILEY # [address] AND SECURED, WITH SAME CURRENT VENT SETTINGS, PT DOES ASSIST AT TIMES, CHECK CUFF, CHANGE HME, SUCTIONED VERY LIGHT PALE YELL TINGE SECRETIONS, WITH GOOD COUGH EFFORT, NO VENT CHANGES MADE AT THIS TIME, PIP 37-40CM APPROX. ALL ALARMS OK, AMBU BAG AT BEDSIDE, PT STABLE. Andi FERGUSON LEAD NUCLEAR MEDICINE TECHNOLOGIST Addendum: 01/23/17 at 2235 by ETHEL FERGUSON RT Amended: Links added.
[2017-01-24] MEDS: BACLOFEN 10 MG TABLET GT SCH ×4 (00:05→17:23)
[2017-01-24] MEDS: BLOOD SUGAR DIAGNOSTIC 1 EACH STRIP VI SCH ×4 (00:06→17:23)
[2017-01-24] MEDS: INSULIN REGULAR, HUMAN 300 UNIT/3 ML VIAL SQ PRN ×3 (01:06→17:23)
--- NOTE | 2017-01-24 03:10 | NUR ---
On Keflex via Gt for GT site boil and drainage, no adverse reactions noted, afebrile, gt site still with drainage , treatment done as ordered, kept clean and comfortable.
[2017-01-24] MEDS: NUTRISOURCE FIBER 4 GM PACKET GT SCH ×3 (05:07→22:05)
[2017-01-24] MEDS: DIABETICSOURCE AC 1000ML LIQUID GT PRN (06:40)
[2017-01-24 08:00] VITALS: BP 109/60
[2017-01-24] MEDS: ACIDOPHILUS/BULGARICUS CHEW TAB GT SCH ×2 (08:35→20:01)
[2017-01-24] MEDS: LEVETIRACETAM 500 MG/5 ML LIQUID UDC GT SCH ×2 (08:36→20:01)
[2017-01-24] MEDS: FAMOTIDINE 20 MG TABLET GT SCH ×2 (08:37→20:01)
[2017-01-24] MEDS: PHENOBARBITAL GT SCH ×2 (08:37→20:01)
[2017-01-24] MEDS: FUROSEMIDE 40 MG/4 ML GT SCH (08:37)
[2017-01-24] MEDS: INSULIN DETEMIR 300 UNIT/3 ML CARTRIDGE SQ SCH ×2 (08:38→20:00)
[2017-01-24] MEDS: COD LIVER OIL/ZINC OXIDE OINT 113 GM TUBE TOP SCH ×2 (08:38→20:01)
[2017-01-24] MEDS: COD LIVER OIL/ZINC OXIDE OINT 113 GM TUBE TP SCH (08:38)
[2017-01-24] MEDS: BACITRACIN TP SCH ×2 (08:38→20:01)
[2017-01-24] MEDS: HYDROGEN PEROXIDE 3% 118 ML BOTTLE TP SCH ×2 (08:39→20:01)
[2017-01-24] MEDS: VITAMINS A AND D OINT TP SCH (08:39)
[2017-01-24] MEDS: POTASSIUM CHLORIDE 20 MEQ TAB.PRT.SR XX SCH ×2 (08:39→17:23)
[2017-01-24] MEDS: CEPHALEXIN MONOHYDRATE 500 MG CAPSULE GT SCH ×2 (08:48→17:23)
--- NOTE | 2017-01-24 17:57 | NUR ---
SEEN BY DR. ANIBAL FULLER.
[2017-01-24] MEDS: CALCIUM CARBONATE 500 MG TAB.CHEW GT SCH (20:01)
[2017-01-24] MEDS: FISH OIL GT SCH (20:01)
[2017-01-24] MEDS: [UNRECOGNIZED DRUG - OTHER] GT SCH (20:01)
--- NOTE | 2017-01-24 20:37 | NUR ---
Pt received on HT-50 vent with the following settings of AC-12, Vt-450, PEEP+5, FIO2-35%, trached with Shiley#6 DCT trach, which is in the place and secure. No distress noted. Airway care done, pt responded to physical stimuli. HME changed. Resus. bag and back up trach at bedside. Vent and alarms on and audible.
[2017-01-24 23:09] VITALS: BP 99/54
[2017-01-25] MEDS: BACLOFEN 10 MG TABLET GT SCH ×5 (00:05→23:59)
[2017-01-25] MEDS: BLOOD SUGAR DIAGNOSTIC 1 EACH STRIP VI SCH ×5 (00:05→23:59)
[2017-01-25] MEDS: CEPHALEXIN MONOHYDRATE 500 MG CAPSULE GT SCH ×3 (00:05→17:04)
[2017-01-25] MEDS: INSULIN REGULAR, HUMAN 300 UNIT/3 ML VIAL SQ PRN ×2 (01:15→17:06)
--- NOTE | 2017-01-25 02:21 | NUR ---
Remains on Keflex gt for Boil and drainage of the GT site, no adverse reactions noted, Gt site still noted with drainage, treatment done as ordered, good skin care done, afebrile, kept clean and comfortable, will continue monitor.
[2017-01-25] MEDS: NUTRISOURCE FIBER 4 GM PACKET GT SCH ×3 (05:24→21:23)
--- NOTE | 2017-01-25 06:55 | NUR ---
Pt received on Continuous mechanical ventilation via trach, in semi fowlers position and has limited response to verbal stimuli. Pt is on [place] HT-50 vent with settings of A/C-12, VT-450, PEEP +5, FIO2-35%. Tolerating vent settings well. SpO2-99%. Sxn'd small amts of yellowish/white secretions. No signs or symptoms of respiratory distress noted. Trach is a [place] 6 DCT. Minimal leak technique used to assess cuff inflation. Trach is patent and secure. No irritation or redness noted around stoma or trach tie. HME changed. PPE used. Vent alarm parameters checked, on and audible. Vent plugged into red emergency outlet. Bag/valve/mask and back up trach bedside. Will continue to monitor.
[2017-01-25 08:00] VITALS: BP 126/65
[2017-01-25] MEDS: ACIDOPHILUS/BULGARICUS CHEW TAB GT SCH ×2 (08:40→20:01)
[2017-01-25] MEDS: POTASSIUM CHLORIDE 20 MEQ TAB.PRT.SR XX SCH ×2 (08:57→17:05)
[2017-01-25] MEDS: PHENOBARBITAL GT SCH ×2 (08:57→20:01)
[2017-01-25] MEDS: COD LIVER OIL/ZINC OXIDE OINT 113 GM TUBE TP SCH (08:57)
[2017-01-25] MEDS: BACITRACIN TP SCH ×2 (08:57→20:04)
[2017-01-25] MEDS: LEVETIRACETAM 500 MG/5 ML LIQUID UDC GT SCH ×2 (08:57→20:01)
[2017-01-25] MEDS: VITAMINS A AND D OINT TP SCH (08:57)
[2017-01-25] MEDS: COD LIVER OIL/ZINC OXIDE OINT 113 GM TUBE TOP SCH ×2 (08:57→20:03)
[2017-01-25] MEDS: INSULIN DETEMIR 300 UNIT/3 ML CARTRIDGE SQ SCH ×2 (08:57→20:02)
[2017-01-25] MEDS: FUROSEMIDE 40 MG/4 ML GT SCH (08:57)
[2017-01-25] MEDS: FAMOTIDINE 20 MG TABLET GT SCH ×2 (08:57→20:01)
[2017-01-25] MEDS: HYDROGEN PEROXIDE 3% 118 ML BOTTLE TP SCH ×2 (08:57→20:04)
--- NOTE | 2017-01-25 11:30 | NUR ---
Seen by Kasey COLLAZO with no new order.
[2017-01-25] MEDS: [UNRECOGNIZED DRUG - OTHER] GT SCH (20:01)
[2017-01-25] MEDS: CALCIUM CARBONATE 500 MG TAB.CHEW GT SCH (20:01)
[2017-01-25] MEDS: FISH OIL GT SCH (20:01)
[2017-01-25 20:48] VITALS: BP 109/53
[2017-01-26] MEDS: CEPHALEXIN MONOHYDRATE 500 MG CAPSULE GT SCH ×3 (00:03→17:10)
--- NOTE | 2017-01-26 02:19 | NUR ---
Remains on keflex via gt for Gt site boil and drainage, still noted with drainage, no adverse reactions from antibiotic, treatment done to gt site as ordered. Afebrile, kept clean and comfortable.
[2017-01-26] MEDS: BLOOD SUGAR DIAGNOSTIC 1 EACH STRIP VI SCH ×3 (05:11→17:11)
[2017-01-26] MEDS: BACLOFEN 10 MG TABLET GT SCH ×3 (05:11→17:10)
[2017-01-26] MEDS: NUTRISOURCE FIBER 4 GM PACKET GT SCH ×3 (05:11→21:35)
[2017-01-26] MEDS: INSULIN REGULAR, HUMAN 300 UNIT/3 ML VIAL SQ PRN (05:22)
[2017-01-26 08:00] VITALS: BP 110/62
[2017-01-26] MEDS: PHENOBARBITAL GT SCH ×2 (08:01→20:00)
[2017-01-26] MEDS: FUROSEMIDE 40 MG/4 ML GT SCH (08:01)
[2017-01-26] MEDS: FAMOTIDINE 20 MG TABLET GT SCH ×2 (08:01→20:00)
[2017-01-26] MEDS: ACIDOPHILUS/BULGARICUS CHEW TAB GT SCH ×2 (08:01→20:00)
[2017-01-26] MEDS: LEVETIRACETAM 500 MG/5 ML LIQUID UDC GT SCH ×2 (08:01→20:00)
[2017-01-26] MEDS: COD LIVER OIL/ZINC OXIDE OINT 113 GM TUBE TOP SCH ×2 (08:02→20:00)
[2017-01-26] MEDS: HYDROGEN PEROXIDE 3% 118 ML BOTTLE TP SCH ×2 (08:03→20:00)
[2017-01-26] MEDS: BACITRACIN TP SCH ×2 (08:03→20:00)
[2017-01-26] MEDS: VITAMINS A AND D OINT TP SCH (08:03)
[2017-01-26] MEDS: COD LIVER OIL/ZINC OXIDE OINT 113 GM TUBE TP SCH (08:03)
[2017-01-26] MEDS: INSULIN DETEMIR 300 UNIT/3 ML CARTRIDGE SQ SCH ×2 (08:06→20:02)
[2017-01-26] MEDS: POTASSIUM CHLORIDE 20 MEQ TAB.PRT.SR XX SCH ×2 (08:09→17:10)
[2017-01-26] MEDS: DIABETICSOURCE AC 1000ML LIQUID GT PRN (09:15)
[2017-01-26] MEDS: CALCIUM CARBONATE 500 MG TAB.CHEW GT SCH (20:00)
[2017-01-26] MEDS: FISH OIL GT SCH (20:00)
[2017-01-26] MEDS: [UNRECOGNIZED DRUG - OTHER] GT SCH (20:00)
--- NOTE | 2017-01-26 20:28 | NUR ---
Pt received on HT-50 vent with the following settings of AC-12, Vt-450, PEEP+5, FIO2-35%, trached with Shiley#6 DCT trach, which is in the place and secure. No sob noted. Airway care done, pt responded to physical stimuli. HME changed. Resus. bag and back up trach at bedside. Vent and alarms on and audible.
[2017-01-26 20:37] VITALS: BP 109/64
[2017-01-27] MEDS: BACLOFEN 10 MG TABLET GT SCH ×5 (00:27→23:37)
[2017-01-27] MEDS: CEPHALEXIN MONOHYDRATE 500 MG CAPSULE GT SCH ×3 (00:27→17:26)
[2017-01-27] MEDS: BLOOD SUGAR DIAGNOSTIC 1 EACH STRIP VI SCH ×5 (00:27→23:38)
[2017-01-27] MEDS: INSULIN REGULAR, HUMAN 300 UNIT/3 ML VIAL SQ PRN ×4 (00:32→23:53)
[2017-01-27] MEDS: NUTRISOURCE FIBER 4 GM PACKET GT SCH ×3 (05:28→21:04)
[2017-01-27 08:00] VITALS: BP 116/65
[2017-01-27] MEDS: PHENOBARBITAL GT SCH ×2 (09:50→20:31)
[2017-01-27] MEDS: FUROSEMIDE 40 MG/4 ML GT SCH (09:50)
[2017-01-27] MEDS: LEVETIRACETAM 500 MG/5 ML LIQUID UDC GT SCH ×2 (09:50→20:31)
[2017-01-27] MEDS: ACIDOPHILUS/BULGARICUS CHEW TAB GT SCH ×2 (09:50→20:31)
[2017-01-27] MEDS: COD LIVER OIL/ZINC OXIDE OINT 113 GM TUBE TOP SCH ×2 (09:50→20:31)
[2017-01-27] MEDS: FAMOTIDINE 20 MG TABLET GT SCH ×2 (09:50→20:31)
[2017-01-27] MEDS: BACITRACIN TP SCH ×2 (09:50→20:31)
[2017-01-27] MEDS: VITAMINS A AND D OINT TP SCH (09:51)
[2017-01-27] MEDS: COD LIVER OIL/ZINC OXIDE OINT 113 GM TUBE TP SCH (09:51)
[2017-01-27] MEDS: HYDROGEN PEROXIDE 3% 118 ML BOTTLE TP SCH ×2 (09:51→20:32)
[2017-01-27] MEDS: POTASSIUM CHLORIDE 20 MEQ TAB.PRT.SR XX SCH ×2 (09:51→17:26)
[2017-01-27] MEDS: INSULIN DETEMIR 300 UNIT/3 ML CARTRIDGE SQ SCH ×2 (09:55→20:45)
[2017-01-27] MEDS: DIABETICSOURCE AC 1000ML LIQUID GT PRN (14:02)
[2017-01-27] MEDS: [UNRECOGNIZED DRUG - OTHER] GT SCH (20:31)
[2017-01-27] MEDS: CALCIUM CARBONATE 500 MG TAB.CHEW GT SCH (20:31)
[2017-01-27] MEDS: FISH OIL GT SCH (20:31)
[2017-01-27 20:58] VITALS: BP 102/59
[2017-01-28] MEDS: CEPHALEXIN MONOHYDRATE 500 MG CAPSULE GT SCH ×3 (01:02→16:25)
[2017-01-28] MEDS: NUTRISOURCE FIBER 4 GM PACKET GT SCH ×3 (05:20→21:32)
[2017-01-28] MEDS: BLOOD SUGAR DIAGNOSTIC 1 EACH STRIP VI SCH ×3 (05:20→17:51)
[2017-01-28] MEDS: BACLOFEN 10 MG TABLET GT SCH ×3 (05:20→17:51)
[2017-01-28 08:00] VITALS: BP 104/63
[2017-01-28] MEDS: LEVETIRACETAM 500 MG/5 ML LIQUID UDC GT SCH ×2 (08:10→20:17)
[2017-01-28] MEDS: FAMOTIDINE 20 MG TABLET GT SCH ×2 (08:10→20:17)
[2017-01-28] MEDS: PHENOBARBITAL GT SCH ×2 (08:10→20:17)
[2017-01-28] MEDS: FUROSEMIDE 40 MG/4 ML GT SCH (08:10)
[2017-01-28] MEDS: ACIDOPHILUS/BULGARICUS CHEW TAB GT SCH ×2 (08:10→20:17)
[2017-01-28] MEDS: INSULIN DETEMIR 300 UNIT/3 ML CARTRIDGE SQ SCH ×2 (08:14→20:18)
[2017-01-28] MEDS: COD LIVER OIL/ZINC OXIDE OINT 113 GM TUBE TOP SCH ×2 (08:14→20:19)
[2017-01-28] MEDS: BACITRACIN TP SCH ×2 (08:14→20:19)
[2017-01-28] MEDS: VITAMINS A AND D OINT TP SCH (08:15)
[2017-01-28] MEDS: POTASSIUM CHLORIDE 20 MEQ TAB.PRT.SR XX SCH ×2 (08:15→16:25)
[2017-01-28] MEDS: COD LIVER OIL/ZINC OXIDE OINT 113 GM TUBE TP SCH (08:15)
[2017-01-28] MEDS: HYDROGEN PEROXIDE 3% 118 ML BOTTLE TP SCH ×2 (08:15→20:19)
--- NOTE | 2017-01-28 08:30 | NUR ---
Pt received on Continuous mechanical ventilation via trach, in semi fowlers position and has limited response to verbal stimuli. Pt is on [place] HT-50 vent with settings of A/C-12, VT-450, PEEP +5, FIO2-35%. Tolerating vent settings well. SpO2-98%. Sxn'd small amts of yellowish/white secretions. No signs or symptoms of respiratory distress noted. Trach is a DigiFun Gamesley 6 DCT. Minimal leak technique used to assess cuff inflation. Trach is patent and secure. No irritation or redness noted around stoma or trach tie. HME changed. PPE used. Vent alarm parameters checked, on and audible. Vent plugged into red emergency outlet. Bag/valve/mask and back up trach bedside. Will continue to monitor.
[2017-01-28] MEDS: DIABETICSOURCE AC 1000ML LIQUID GT PRN (16:26)
[2017-01-28] MEDS: INSULIN REGULAR, HUMAN 300 UNIT/3 ML VIAL SQ PRN (17:54)
--- NOTE | 2017-01-28 20:05 | NUR ---
CURRENT VENT SETTINGS ARE AC 12, VT 450, PEEP +5, FIO2 35%. PT APPEARS TO BE TOLERATING VENT WITH NO ISSUES. NO CHANGES MADE. VENT AND ALARM PARAMETERS CHECKED. ALARMS ARE ON AND AUDIBLE. SH. 6DCT TRACH IS PATENT AND SECURED WITH FOAM TRACH TIES. HME CHANGED. SUCTIONED NEEDED. SUCTIONED A MODERATE AMOUNT OF THICK, PALE SECRETIONS. BVM AND BACK UP TRACH ARE AT BEDSIDE. VENT IS PLUGGED INTO RED EMERGENCY OUTLET. CUFF REINFLATED DUE TO LEAK. WILL CONTINUE TO MONITOR PT THROUGHOUT SHIFT.
[2017-01-28] MEDS: FISH OIL GT SCH (20:17)
[2017-01-28] MEDS: [UNRECOGNIZED DRUG - OTHER] GT SCH (20:17)
[2017-01-28] MEDS: CALCIUM CARBONATE 500 MG TAB.CHEW GT SCH (20:18)
[2017-01-28 20:23] VITALS: BP 101/51
[2017-01-29] MEDS: BLOOD SUGAR DIAGNOSTIC 1 EACH STRIP VI SCH ×4 (00:12→17:49)
[2017-01-29] MEDS: BACLOFEN 10 MG TABLET GT SCH ×4 (00:12→17:20)
[2017-01-29] MEDS: CEPHALEXIN MONOHYDRATE 500 MG CAPSULE GT SCH ×3 (00:12→17:20)
[2017-01-29] MEDS: INSULIN REGULAR, HUMAN 300 UNIT/3 ML VIAL SQ PRN ×4 (00:16→17:51)
[2017-01-29] MEDS: NUTRISOURCE FIBER 4 GM PACKET GT SCH ×3 (05:26→22:21)
[2017-01-29 08:00] VITALS: BP 119/62
[2017-01-29] MEDS: PHENOBARBITAL GT SCH ×2 (08:01→20:39)
[2017-01-29] MEDS: FUROSEMIDE 40 MG/4 ML GT SCH (08:01)
[2017-01-29] MEDS: ACIDOPHILUS/BULGARICUS CHEW TAB GT SCH ×2 (08:01→20:38)
[2017-01-29] MEDS: LEVETIRACETAM 500 MG/5 ML LIQUID UDC GT SCH ×2 (08:01→20:39)
[2017-01-29] MEDS: FAMOTIDINE 20 MG TABLET GT SCH ×2 (08:01→20:39)
[2017-01-29] MEDS: HYDROGEN PEROXIDE 3% 118 ML BOTTLE TP SCH ×2 (08:03→20:41)
[2017-01-29] MEDS: INSULIN DETEMIR 300 UNIT/3 ML CARTRIDGE SQ SCH ×2 (08:03→21:49)
[2017-01-29] MEDS: COD LIVER OIL/ZINC OXIDE OINT 113 GM TUBE TOP SCH ×2 (08:03→20:40)
[2017-01-29] MEDS: POTASSIUM CHLORIDE 20 MEQ TAB.PRT.SR XX SCH ×2 (08:03→17:20)
[2017-01-29] MEDS: VITAMINS A AND D OINT TP SCH (08:03)
[2017-01-29] MEDS: BACITRACIN TP SCH ×2 (08:03→20:41)
[2017-01-29] MEDS: COD LIVER OIL/ZINC OXIDE OINT 113 GM TUBE TP SCH (08:03)
[2017-01-29 08:08] LABS: CREATININE 1.1 mg/dL (0.6-1.3); POTASSIUM 3.6 mmol/L (3.5-5.1)
--- NOTE | 2017-01-29 13:58 | NUR ---
seen by jermaine hall.
--- NOTE | 2017-01-29 14:35 | NUR ---
SEEN BY HARSH FULLER.
--- NOTE | 2017-01-29 14:40 | NUR ---
DR. GALEAS WAS PAGED.
[2017-01-29] MEDS: DIABETICSOURCE AC 1000ML LIQUID GT PRN (17:20)
[2017-01-29 20:14] VITALS: BP 106/57
[2017-01-29] MEDS: FISH OIL GT SCH (20:39)
[2017-01-29] MEDS: [UNRECOGNIZED DRUG - OTHER] GT SCH (20:39)
[2017-01-29] MEDS: CALCIUM CARBONATE 500 MG TAB.CHEW GT SCH (20:40)
[2017-01-30] MEDS: CEPHALEXIN MONOHYDRATE 500 MG CAPSULE GT SCH ×3 (00:19→17:02)
[2017-01-30] MEDS: BLOOD SUGAR DIAGNOSTIC 1 EACH STRIP VI SCH ×4 (00:19→17:03)
[2017-01-30] MEDS: BACLOFEN 10 MG TABLET GT SCH ×4 (00:19→17:02)
[2017-01-30] MEDS: INSULIN REGULAR, HUMAN 300 UNIT/3 ML VIAL SQ PRN ×4 (00:20→17:08)
[2017-01-30] MEDS: NUTRISOURCE FIBER 4 GM PACKET GT SCH ×3 (05:25→21:13)
[2017-01-30 08:00] VITALS: BP 96/63
--- NOTE | 2017-01-30 08:25 | NUR ---
Pt received on Continuous mechanical ventilation via trach, in semi fowlers position and has limited response to verbal stimuli. Pt is on [place] HT-50 vent with settings of A/C-12, VT-450, PEEP +5, FIO2-35%. Tolerating vent settings well. SpO2-97%. Sxn'd small amts of yellowish secretions. No signs or symptoms of respiratory distress noted. Trach is a Shiley 6 DCT. Minimal leak technique used to assess cuff inflation. Trach is patent and secure. No irritation or redness noted around stoma or trach tie. HME changed. PPE used. Vent alarm parameters checked, on and audible. Vent plugged into red emergency outlet. Bag/valve/mask and back up trach bedside. Will continue to monitor.
[2017-01-30] MEDS: ACIDOPHILUS/BULGARICUS CHEW TAB GT SCH ×2 (08:47→21:08)
[2017-01-30] MEDS: FUROSEMIDE 40 MG/4 ML GT SCH (08:48)
[2017-01-30] MEDS: LEVETIRACETAM 500 MG/5 ML LIQUID UDC GT SCH ×2 (08:48→21:09)
[2017-01-30] MEDS: PHENOBARBITAL GT SCH ×2 (08:49→21:09)
[2017-01-30] MEDS: FAMOTIDINE 20 MG TABLET GT SCH ×2 (08:49→21:10)
[2017-01-30] MEDS: INSULIN DETEMIR 300 UNIT/3 ML CARTRIDGE SQ SCH ×2 (08:53→21:11)
[2017-01-30] MEDS: COD LIVER OIL/ZINC OXIDE OINT 113 GM TUBE TOP SCH ×2 (08:54→21:12)
[2017-01-30] MEDS: BACITRACIN TP SCH ×2 (08:55→21:13)
[2017-01-30] MEDS: COD LIVER OIL/ZINC OXIDE OINT 113 GM TUBE TP SCH (08:56)
[2017-01-30] MEDS: HYDROGEN PEROXIDE 3% 118 ML BOTTLE TP SCH ×2 (08:56→21:13)
[2017-01-30] MEDS: VITAMINS A AND D OINT TP SCH (09:00)
[2017-01-30] MEDS: POTASSIUM CHLORIDE 20 MEQ TAB.PRT.SR XX SCH ×2 (09:00→17:02)
--- NOTE | 2017-01-30 12:12 | NUR ---
Notified Dr. Mckeon about an order for nephrology consult secondary to elevated sodium level [address] Mckeon said, he will come and see patient later.
--- NOTE | 2017-01-30 17:01 | NUR ---
Pharmacy Review for upcoming 02/22 IDT Meeting -VS: TEMP 98.2 HR 75 BP 96/63 -LABS: From (01/22) WBC 3.5H/H 8.4/26.6PLT 103 (From 01/29) NA 151K 3.6CL 113CO2 34BUN/SCR /.1 BS 133 CA 8.7 -MEDICATION USE REVIEWED: > Pt is not on any anti-psych medication > On Phenobarbital 50mg BID, last level 20.7 (15-39) on 12/13. No seizure activity in January. >On Keppra 750mg BID, Calculated CrCl 52.12 ml/min, last level was 43.8 (10-40) (06/16/16), renal function appropriate for dose No seizure activity in January. >On Kcl 40meq am and 20 meq pm, K=3.6 in January. > Pt insulin regimen: now on levemir 62 units HS, levemir 32 units AM + a custom sliding scale of regular insulin + 8units of regular insulin in addition. BS in January ranged 85-214. > PRN MED USAGE: (January) Tylenol 650mg mild-mod pain none used Tylenol 650mg for temp none used [place] 5/325mg for mod-severe pain (6-10) none used Artificial tears none used -NEW ORDERS NOTED: > Keflex 500mg via GT every 8 hrs x10 days for GT cellulitis(01/23-02/02) > Bacitracin ointment GT site redness every shift x21 days(01/20-02/09) >Desitin ointment to back of the neck daily for skin maintenance, starting 01/14 Last HgA1c was on 11/09/16(6.0), will consider recommending another one for next month. Will ask to dc artificial tears. Addendum: 02/13/17 at 1246 by ZENAIDA CONNOLLY ADM Update from today's 02/13/17 IDT Meeting > Patient was reviewed and discussed in depth, in particular pt's recent course of keflex for GT cellulitis which may not yet be resolved. Per MD, may consider askign for ID or GI consult in order to obtain culture from GT site discharge. No other acute medication issues. Will continue to follow
[2017-01-30] MEDS: DIABETICSOURCE AC 1000ML LIQUID GT PRN (19:15)
[2017-01-30 20:00] VITALS: BP 106/59
--- NOTE | 2017-01-30 20:17 | NUR ---
Received pt on HT-50 vent with AC-12, Vt-450, PEEP+5, FIO2-35%, trached with Shiley#6 DCT trach, which is in the place and secure. No distress noted. Airway care done, pt responded to physical stimuli. HME changed. Resus. bag and back up trach at bedside. Vent and alarms on and audible.
[2017-01-30] MEDS: FISH OIL GT SCH (21:09)
[2017-01-30] MEDS: [UNRECOGNIZED DRUG - OTHER] GT SCH (21:09)
[2017-01-30] MEDS: CALCIUM CARBONATE 500 MG TAB.CHEW GT SCH (21:10)
--- NOTE | 2017-01-30 23:45 | NUR ---
Remains on Keflex via Gt for Gt site boil/ drainage, no adverse reactions noted, with ongoing treatment to Gt site as ordered, kept site clean and dry, will continue monitor.
[2017-01-31] MEDS: CEPHALEXIN MONOHYDRATE 500 MG CAPSULE GT SCH ×3 (01:15→17:01)
[2017-01-31] MEDS: INSULIN REGULAR, HUMAN 300 UNIT/3 ML VIAL SQ PRN ×4 (01:22→17:04)
[2017-01-31] MEDS: BACLOFEN 10 MG TABLET GT SCH ×4 (05:59→17:03)
[2017-01-31] MEDS: NUTRISOURCE FIBER 4 GM PACKET GT SCH ×3 (05:59→21:07)
[2017-01-31] MEDS: BLOOD SUGAR DIAGNOSTIC 1 EACH STRIP VI SCH ×4 (05:59→17:03)
[2017-01-31 08:00] VITALS: BP 104/56
[2017-01-31] MEDS: ACIDOPHILUS/BULGARICUS CHEW TAB GT SCH ×2 (08:41→21:05)
[2017-01-31] MEDS: LEVETIRACETAM 500 MG/5 ML LIQUID UDC GT SCH ×2 (08:42→21:06)
[2017-01-31] MEDS: FAMOTIDINE 20 MG TABLET GT SCH ×2 (08:43→21:06)
[2017-01-31] MEDS: FUROSEMIDE 40 MG/4 ML GT SCH (08:43)
[2017-01-31] MEDS: PHENOBARBITAL GT SCH ×2 (08:43→21:06)
[2017-01-31] MEDS: HYDROGEN PEROXIDE 3% 118 ML BOTTLE TP SCH ×2 (08:43→21:07)
[2017-01-31] MEDS: VITAMINS A AND D OINT TP SCH (08:43)
[2017-01-31] MEDS: COD LIVER OIL/ZINC OXIDE OINT 113 GM TUBE TP SCH (08:43)
[2017-01-31] MEDS: BACITRACIN TP SCH ×2 (08:43→21:07)
[2017-01-31] MEDS: COD LIVER OIL/ZINC OXIDE OINT 113 GM TUBE TOP SCH ×2 (08:43→21:07)
[2017-01-31] MEDS: POTASSIUM CHLORIDE 20 MEQ TAB.PRT.SR XX SCH ×2 (08:44→17:03)
[2017-01-31] MEDS: INSULIN DETEMIR 300 UNIT/3 ML CARTRIDGE SQ SCH ×2 (08:47→21:10)
--- NOTE | 2017-01-31 12:00 | NUR ---
Seen by Kasey COLLAZO with no new order.
--- NOTE | 2017-01-31 17:02 | NUR ---
Seen by Dr. Jorgensen with no new order.
[2017-01-31 20:23] VITALS: BP 100/51
--- NOTE | 2017-01-31 20:27 | NUR ---
PT ON CONT HT 50 VENT WITH SHILEY # [address] AND SEC[address]ED, WITH SAME CURRENT VENT SETTINGS, PT DOES ASSIST AT TIMES, GOOD COUGH EFFORT, SUCTION LIGHT PALE YELL TINGE SECRETIONS, PIP 32-35CM APPROX. NO VENT CHANGES MADE AT THIS TIME, CHANGE HME AND CHECK CUFF; ALL ALARMS OK, AMBU BAG AT BEDSIDE, PT APPEARS WITH NO RESP. DISTRESS. Andi CHAKRABORTYP Addendum: 01/31/17 at 2031 by ETHEL FERGUSON RT Amended: Links added.
[2017-01-31] MEDS: [UNRECOGNIZED DRUG - OTHER] GT SCH (21:06)
[2017-01-31] MEDS: FISH OIL GT SCH (21:06)
[2017-01-31] MEDS: CALCIUM CARBONATE 500 MG TAB.CHEW GT SCH (21:06)
[2017-02-01] MEDS: BACLOFEN 10 MG TABLET GT SCH ×5 (00:33→23:25)
[2017-02-01] MEDS: BLOOD SUGAR DIAGNOSTIC 1 EACH STRIP VI SCH ×5 (00:34→23:25)
[2017-02-01] MEDS: CEPHALEXIN MONOHYDRATE 500 MG CAPSULE GT SCH ×3 (00:34→17:05)
[2017-02-01] MEDS: INSULIN REGULAR, HUMAN 300 UNIT/3 ML VIAL SQ PRN ×5 (00:35→23:26)
[2017-02-01] MEDS: DIABETICSOURCE AC 1000ML LIQUID GT PRN (01:00)
[2017-02-01] MEDS: NUTRISOURCE FIBER 4 GM PACKET GT SCH ×3 (05:05→21:23)
[2017-02-01] MEDS: INSULIN DETEMIR 300 UNIT/3 ML CARTRIDGE SQ SCH ×2 (08:21→21:22)
[2017-02-01] MEDS: ACIDOPHILUS/BULGARICUS CHEW TAB GT SCH ×2 (08:31→21:21)
[2017-02-01] MEDS: LEVETIRACETAM 500 MG/5 ML LIQUID UDC GT SCH ×2 (08:32→21:21)
[2017-02-01] MEDS: PHENOBARBITAL GT SCH ×2 (08:32→21:21)
[2017-02-01] MEDS: FAMOTIDINE 20 MG TABLET GT SCH ×2 (08:32→21:21)
[2017-02-01] MEDS: FUROSEMIDE 40 MG/4 ML GT SCH (08:32)
[2017-02-01] MEDS: COD LIVER OIL/ZINC OXIDE OINT 113 GM TUBE TP SCH (08:34)
[2017-02-01] MEDS: BACITRACIN TP SCH ×2 (08:34→21:23)
[2017-02-01] MEDS: COD LIVER OIL/ZINC OXIDE OINT 113 GM TUBE TOP SCH ×2 (08:34→21:23)
[2017-02-01] MEDS: HYDROGEN PEROXIDE 3% 118 ML BOTTLE TP SCH ×2 (08:34→21:23)
[2017-02-01] MEDS: POTASSIUM CHLORIDE 20 MEQ TAB.PRT.SR XX SCH ×2 (08:35→17:05)
[2017-02-01] MEDS: VITAMINS A AND D OINT TP SCH (08:35)
[2017-02-01 09:11] VITALS: BP 125/60
[2017-02-01 20:20] VITALS: BP 111/56
--- NOTE | 2017-02-01 20:31 | NUR ---
Received pt on HT-50 vent with AC-12, Vt-450, PEEP+5, FIO2-35%, trached with Shiley#6 DCT trach, which is in the place and secure. No s/s of respiratory distress noted. Airway care done, pt responded to physical stimuli. HME changed. Resus. bag and back up trach at bedside. Vent and alarms on and audible.
[2017-02-01] MEDS: FISH OIL GT SCH (21:21)
[2017-02-01] MEDS: [UNRECOGNIZED DRUG - OTHER] GT SCH (21:21)
[2017-02-01] MEDS: CALCIUM CARBONATE 500 MG TAB.CHEW GT SCH (21:22)
[2017-02-02] MEDS: DIABETICSOURCE AC 1000ML LIQUID GT PRN (01:00)
[2017-02-02] MEDS: CEPHALEXIN MONOHYDRATE 500 MG CAPSULE GT SCH ×3 (01:20→17:07)
[2017-02-02] MEDS: BACLOFEN 10 MG TABLET GT SCH ×3 (05:43→17:07)
[2017-02-02] MEDS: NUTRISOURCE FIBER 4 GM PACKET GT SCH ×3 (05:43→21:15)
[2017-02-02] MEDS: BLOOD SUGAR DIAGNOSTIC 1 EACH STRIP VI SCH ×3 (05:44→17:07)
[2017-02-02] MEDS: INSULIN REGULAR, HUMAN 300 UNIT/3 ML VIAL SQ PRN ×3 (05:45→17:14)
[2017-02-02 07:22] LABS: BASOPHILS % (AUTO) 0.8 % (0.0-2.0); EOSINOPHILS # (AUTO) 0.2 K/uL (0.0-0.7); EOSINOPHILS % (AUTO) 5.3 % (0.0-7.0); HEMATOCRIT 26.2 % (37-47); HEMOGLOBIN 8.5 G/DL (12.0-16.0); LYMPHOCYTES # (AUTO) 1.4 K/UL (0.8-4.8); LYMPHOCYTES % (AUTO) 35.4 % (20.5-51.5); MEAN CORPUSCULAR HEMOGLOBIN 32.4 UUG (27.0-31.0); MEAN CORPUSCULAR HGB CONC 32 g/dL (32.0-37.0); MEAN CORPUSCULAR VOLUME 100.4 FL (81.0-99.0); MONOCYTES # (AUTO) 0.3 K/UL (0.1-1.30); MONOCYTES % (AUTO) 7.3 % (0.0-11.0); NEUTROPHILS # (AUTO) 1.9 K/UL (1.8-8.9); NEUTROPHILS % (AUTO) 51.2 % (38.5-71.5); PLATELET COUNT (AUTO) 100 K/UL (150-450); RED BLOOD CELL COUNT(AUTO) 2.61 MIL/UL (4.2-5.4); WHITE BLOOD COUNT (AUTO) 3.8 K/UL (4.0-11.2)
[2017-02-02 07:46] LABS: BILIRUBIN,TOTAL 0.6 mg/dL (0.2-1.0); MAGNESIUM 2.5 mg/dL (1.8-2.4); PHOSPHOROUS 2.5 mg/dL (2.5-4.9); POTASSIUM 3.7 mmol/L (3.5-5.1); TOTAL PROTEIN, SERUM 8.4 g/dL (6.4-8.2)
[2017-02-02 08:00] VITALS: BP 100/58
[2017-02-02] MEDS: INSULIN DETEMIR 300 UNIT/3 ML CARTRIDGE SQ SCH ×2 (08:09→21:40)
[2017-02-02] MEDS: LEVETIRACETAM 500 MG/5 ML LIQUID UDC GT SCH ×2 (08:17→21:14)
[2017-02-02] MEDS: ACIDOPHILUS/BULGARICUS CHEW TAB GT SCH ×2 (08:17→21:14)
[2017-02-02] MEDS: FAMOTIDINE 20 MG TABLET GT SCH ×2 (08:19→21:15)
[2017-02-02] MEDS: FUROSEMIDE 40 MG/4 ML GT SCH (08:19)
[2017-02-02] MEDS: PHENOBARBITAL GT SCH ×2 (08:19→21:15)
[2017-02-02] MEDS: POTASSIUM CHLORIDE 20 MEQ TAB.PRT.SR XX SCH ×2 (08:20→17:07)
[2017-02-02] MEDS: COD LIVER OIL/ZINC OXIDE OINT 113 GM TUBE TOP SCH ×2 (08:20→21:15)
[2017-02-02] MEDS: COD LIVER OIL/ZINC OXIDE OINT 113 GM TUBE TP SCH (08:20)
[2017-02-02] MEDS: HYDROGEN PEROXIDE 3% 118 ML BOTTLE TP SCH ×2 (08:20→21:15)
[2017-02-02] MEDS: VITAMINS A AND D OINT TP SCH (08:20)
[2017-02-02] MEDS: BACITRACIN TP SCH ×2 (08:20→21:15)
--- NOTE | 2017-02-02 11:15 | NUR ---
Seen and examined by VALE Lomax, with no new order.
[2017-02-02] MEDS: [UNRECOGNIZED DRUG - OTHER] GT SCH (21:15)
[2017-02-02] MEDS: FISH OIL GT SCH (21:15)
[2017-02-02] MEDS: CALCIUM CARBONATE 500 MG TAB.CHEW GT SCH (21:15)
[2017-02-02 23:21] VITALS: BP 104/50
[2017-02-03] MEDS: BACLOFEN 10 MG TABLET GT SCH ×4 (00:40→17:14)
[2017-02-03] MEDS: BLOOD SUGAR DIAGNOSTIC 1 EACH STRIP VI SCH ×4 (00:50→17:15)
[2017-02-03] MEDS: INSULIN REGULAR, HUMAN 300 UNIT/3 ML VIAL SQ PRN ×3 (00:52→17:17)
[2017-02-03] MEDS: NUTRISOURCE FIBER 4 GM PACKET GT SCH ×3 (06:05→21:14)
[2017-02-03] MEDS: DIABETICSOURCE AC 1000ML LIQUID GT PRN (06:39)
[2017-02-03 08:02] VITALS: BP 100/54
[2017-02-03] MEDS: FAMOTIDINE 20 MG TABLET GT SCH ×2 (08:23→20:38)
[2017-02-03] MEDS: PHENOBARBITAL GT SCH ×2 (08:23→20:38)
[2017-02-03] MEDS: FUROSEMIDE 40 MG/4 ML GT SCH (08:23)
[2017-02-03] MEDS: ACIDOPHILUS/BULGARICUS CHEW TAB GT SCH ×2 (08:23→20:37)
[2017-02-03] MEDS: LEVETIRACETAM 500 MG/5 ML LIQUID UDC GT SCH ×2 (08:23→20:37)
[2017-02-03] MEDS: INSULIN DETEMIR 300 UNIT/3 ML CARTRIDGE SQ SCH ×2 (08:24→20:43)
[2017-02-03] MEDS: BACITRACIN TP SCH ×2 (08:24→20:38)
[2017-02-03] MEDS: COD LIVER OIL/ZINC OXIDE OINT 113 GM TUBE TP SCH (08:24)
[2017-02-03] MEDS: COD LIVER OIL/ZINC OXIDE OINT 113 GM TUBE TOP SCH ×2 (08:24→20:38)
[2017-02-03] MEDS: VITAMINS A AND D OINT TP SCH (08:24)
[2017-02-03] MEDS: POTASSIUM CHLORIDE 20 MEQ TAB.PRT.SR XX SCH ×2 (08:24→17:14)
[2017-02-03] MEDS: HYDROGEN PEROXIDE 3% 118 ML BOTTLE TP SCH ×2 (08:24→20:38)
--- NOTE | 2017-02-03 20:05 | NUR ---
Pt received on HT-50 vent with the following settings of AC-12, Vt-450, PEEP+5, FIO2-35%, trached with Shiley#6 DCT trach, which is in the place and secure. No sob noted. Airway care done, pt responded to physical stimuli. HME and Sx [place] changed. Resus. bag and back up trach at bedside. Vent and alarms checked and reset.
[2017-02-03] MEDS: FISH OIL GT SCH (20:37)
[2017-02-03] MEDS: [UNRECOGNIZED DRUG - OTHER] GT SCH (20:37)
[2017-02-03] MEDS: CALCIUM CARBONATE 500 MG TAB.CHEW GT SCH (20:38)
[2017-02-03 22:00] VITALS: BP 98/50
[2017-02-04] MEDS: BACLOFEN 10 MG TABLET GT SCH ×4 (00:48→17:25)
[2017-02-04] MEDS: BLOOD SUGAR DIAGNOSTIC 1 EACH STRIP VI SCH ×4 (00:48→17:25)
[2017-02-04] MEDS: NUTRISOURCE FIBER 4 GM PACKET GT SCH ×3 (05:53→21:13)
[2017-02-04 08:00] VITALS: BP 102/54
[2017-02-04] MEDS: LEVETIRACETAM 500 MG/5 ML LIQUID UDC GT SCH ×2 (08:11→21:12)
[2017-02-04] MEDS: ACIDOPHILUS/BULGARICUS CHEW TAB GT SCH ×2 (08:11→21:12)
[2017-02-04] MEDS: FUROSEMIDE 40 MG/4 ML GT SCH (08:12)
[2017-02-04] MEDS: PHENOBARBITAL GT SCH ×2 (08:12→21:12)
[2017-02-04] MEDS: FAMOTIDINE 20 MG TABLET GT SCH ×2 (08:12→21:12)
[2017-02-04] MEDS: COD LIVER OIL/ZINC OXIDE OINT 113 GM TUBE TOP SCH ×2 (08:13→21:12)
[2017-02-04] MEDS: HYDROGEN PEROXIDE 3% 118 ML BOTTLE TP SCH ×2 (08:16→21:13)
[2017-02-04] MEDS: INSULIN DETEMIR 300 UNIT/3 ML CARTRIDGE SQ SCH ×2 (08:16→21:45)
[2017-02-04] MEDS: BACITRACIN TP SCH ×2 (08:16→21:13)
[2017-02-04] MEDS: COD LIVER OIL/ZINC OXIDE OINT 113 GM TUBE TP SCH (08:16)
[2017-02-04] MEDS: POTASSIUM CHLORIDE 20 MEQ TAB.PRT.SR XX SCH ×2 (08:17→17:25)
[2017-02-04] MEDS: VITAMINS A AND D OINT TP SCH (08:17)
--- NOTE | 2017-02-04 11:13 | NUR ---
SEEN AND EXAMINED BY DR. HICKMAN AND ROXIEO.
[2017-02-04] MEDS: INSULIN REGULAR, HUMAN 300 UNIT/3 ML VIAL SQ PRN ×2 (11:36→17:25)
--- NOTE | 2017-02-04 17:32 | NUR ---
RECEIVED ON VENT HT-50 WITH SETTINGS OF AC 12,VT 450, PEEP 5 AND FIO2 35%. STABLE WITH O2 SATURATION OF 98%. SUCTIONED FOR MODERATE AMOUNT OF THICK WHITISH SECRETIONS ORALLY AND FROM THE TRACH. CHANGED HUMIDIFIER FILTER.
[2017-02-04 20:48] VITALS: BP 98/50
[2017-02-04] MEDS: CALCIUM CARBONATE 500 MG TAB.CHEW GT SCH (21:12)
[2017-02-04] MEDS: FISH OIL GT SCH (21:12)
[2017-02-04] MEDS: [UNRECOGNIZED DRUG - OTHER] GT SCH (21:12)
[2017-02-05] MEDS: BACLOFEN 10 MG TABLET GT SCH ×4 (00:19→17:17)
[2017-02-05] MEDS: BLOOD SUGAR DIAGNOSTIC 1 EACH STRIP VI SCH ×4 (00:19→17:17)
[2017-02-05] MEDS: INSULIN REGULAR, HUMAN 300 UNIT/3 ML VIAL SQ PRN ×3 (01:07→17:18)
[2017-02-05] MEDS: NUTRISOURCE FIBER 4 GM PACKET GT SCH ×3 (06:06→21:48)
[2017-02-05] MEDS: DIABETICSOURCE AC 1000ML LIQUID GT PRN (07:05)
[2017-02-05 08:00] VITALS: BP 111/72
[2017-02-05] MEDS: ACIDOPHILUS/BULGARICUS CHEW TAB GT SCH ×2 (08:29→21:47)
[2017-02-05] MEDS: LEVETIRACETAM 500 MG/5 ML LIQUID UDC GT SCH ×2 (08:29→21:47)
[2017-02-05] MEDS: FUROSEMIDE 40 MG/4 ML GT SCH (08:30)
[2017-02-05] MEDS: FAMOTIDINE 20 MG TABLET GT SCH ×2 (08:30→21:47)
[2017-02-05] MEDS: PHENOBARBITAL GT SCH ×2 (08:30→21:47)
[2017-02-05] MEDS: COD LIVER OIL/ZINC OXIDE OINT 113 GM TUBE TOP SCH ×2 (08:33→21:47)
[2017-02-05] MEDS: INSULIN DETEMIR 300 UNIT/3 ML CARTRIDGE SQ SCH ×2 (08:33→21:58)
[2017-02-05] MEDS: HYDROGEN PEROXIDE 3% 118 ML BOTTLE TP SCH ×2 (08:34→21:48)
[2017-02-05] MEDS: VITAMINS A AND D OINT TP SCH (08:34)
[2017-02-05] MEDS: COD LIVER OIL/ZINC OXIDE OINT 113 GM TUBE TP SCH (08:34)
[2017-02-05] MEDS: POTASSIUM CHLORIDE 20 MEQ TAB.PRT.SR XX SCH ×2 (08:34→17:17)
[2017-02-05] MEDS: BACITRACIN TP SCH ×2 (08:34→21:47)
--- NOTE | 2017-02-05 19:30 | NUR ---
Patient recieved on CMV with ordered vent settings of AC 12 VT 450 PEEP 5 FIO2 35% No signs of respiratory distress noted at this time. She is trached with a shiley #6 DCT.Trach is secure and patent. TOBACCO BUYER used for cuff inflation. HME was changed without complications. Alarm parameters assessed and are on/audible. Spare trach at bedside.
[2017-02-05] MEDS: CALCIUM CARBONATE 500 MG TAB.CHEW GT SCH (21:47)
[2017-02-05] MEDS: [UNRECOGNIZED DRUG - OTHER] GT SCH (21:47)
[2017-02-05] MEDS: FISH OIL GT SCH (21:47)
[2017-02-05 23:20] VITALS: BP 105/49
[2017-02-06] MEDS: BACLOFEN 10 MG TABLET GT SCH ×5 (00:42→23:34)
[2017-02-06] MEDS: BLOOD SUGAR DIAGNOSTIC 1 EACH STRIP VI SCH ×5 (00:42→23:37)
[2017-02-06] MEDS: INSULIN REGULAR, HUMAN 300 UNIT/3 ML VIAL SQ PRN ×4 (00:51→23:38)
[2017-02-06] MEDS: NUTRISOURCE FIBER 4 GM PACKET GT SCH ×3 (05:43→21:42)
[2017-02-06] MEDS: DIABETICSOURCE AC 1000ML LIQUID GT PRN (06:38)
[2017-02-06 07:17] LABS: BASOPHILS % (AUTO) 1.1 % (0.0-2.0); EOSINOPHILS # (AUTO) 0.3 K/uL (0.0-0.7); EOSINOPHILS % (AUTO) 6.7 % (0.0-7.0); HEMATOCRIT 27.4 % (37-47); HEMOGLOBIN 8.5 G/DL (12.0-16.0); LYMPHOCYTES # (AUTO) 1.7 K/UL (0.8-4.8); LYMPHOCYTES % (AUTO) 38.1 % (20.5-51.5); MEAN CORPUSCULAR HEMOGLOBIN 30.7 UUG (27.0-31.0); MEAN CORPUSCULAR HGB CONC 31 g/dL (32.0-37.0); MEAN CORPUSCULAR VOLUME 98.7 FL (81.0-99.0); MONOCYTES # (AUTO) 0.2 K/UL (0.1-1.30); MONOCYTES % (AUTO) 5.7 % (0.0-11.0); NEUTROPHILS # (AUTO) 2.2 K/UL (1.8-8.9); NEUTROPHILS % (AUTO) 48.4 % (38.5-71.5); PLATELET COUNT (AUTO) 111 K/UL (150-450); RED BLOOD CELL COUNT(AUTO) 2.77 MIL/UL (4.2-5.4); WHITE BLOOD COUNT (AUTO) 4.4 K/UL (4.0-11.2)
[2017-02-06 07:20] LABS: BILIRUBIN,TOTAL 0.3 mg/dL (0.2-1.0); MAGNESIUM 2.6 mg/dL (1.8-2.4); TOTAL PROTEIN, SERUM 8.2 g/dL (6.4-8.2)
[2017-02-06 08:00] VITALS: BP 115/58
--- NOTE | 2017-02-06 08:22 | NUR ---
PATIENT RECEIVED ON CONTINUOUS MECHANICAL VENTILATION. CURRENT SETTINGS ARE AC 12, VT 450, PEEP +5, FIO2 35%. NO CHANGES MADE AT THIS TIME. VENT CHECK COMPLETED. ALARMS CHECKED, ARE ON AND AUDIBLE. SH. 6DCT TRACH IS PATENT AND SECURED WITH FOAM TRACH TIES. SUCTIONED SMALL AMOUNT OF THICK, PALE SECRETIONS. HME CHANGED NEEDED. NO S/S OF RESPIRATORY DISTRESS OBSERVED. AMBU BAG AND BACK UP TRACH ARE AT BEDSIDE. VENT IS PLUGGED INTO RED EMERGENCY OUTLET. WILL CONTINUE TO MONITOR PATIENT.
[2017-02-06] MEDS: ACIDOPHILUS/BULGARICUS CHEW TAB GT SCH ×2 (08:43→21:38)
[2017-02-06] MEDS: LEVETIRACETAM 500 MG/5 ML LIQUID UDC GT SCH ×2 (08:43→21:38)
[2017-02-06] MEDS: FUROSEMIDE 40 MG/4 ML GT SCH (08:44)
[2017-02-06] MEDS: COD LIVER OIL/ZINC OXIDE OINT 113 GM TUBE TOP SCH ×2 (08:45→21:41)
[2017-02-06] MEDS: PHENOBARBITAL GT SCH ×2 (08:45→21:39)
[2017-02-06] MEDS: HYDROGEN PEROXIDE 3% 118 ML BOTTLE TP SCH ×2 (08:45→21:41)
[2017-02-06] MEDS: COD LIVER OIL/ZINC OXIDE OINT 113 GM TUBE TP SCH (08:45)
[2017-02-06] MEDS: FAMOTIDINE 20 MG TABLET GT SCH ×2 (08:45→21:39)
[2017-02-06] MEDS: BACITRACIN TP SCH ×2 (08:45→21:41)
[2017-02-06] MEDS: POTASSIUM CHLORIDE 20 MEQ TAB.PRT.SR XX SCH ×2 (08:46→17:00)
[2017-02-06] MEDS: VITAMINS A AND D OINT TP SCH (08:46)
[2017-02-06] MEDS: INSULIN DETEMIR 300 UNIT/3 ML CARTRIDGE SQ SCH ×2 (08:53→21:41)
--- NOTE | 2017-02-06 10:42 | NUR ---
SEEN BY DENISE FULLER.
--- NOTE | 2017-02-06 18:24 | NUR ---
SEEN BY DR. VICK FULLER.
[2017-02-06] MEDS: FISH OIL GT SCH (21:38)
[2017-02-06] MEDS: [UNRECOGNIZED DRUG - OTHER] GT SCH (21:38)
[2017-02-06] MEDS: CALCIUM CARBONATE 500 MG TAB.CHEW GT SCH (21:39)
[2017-02-06 22:44] VITALS: BP 106/53
--- NOTE | 2017-02-07 04:23 | NUR ---
PT ON CONT HT 50 VENT WITH SHILEY # [address] , WITH SAME CURRENT VENT SETTINGS, PT DOES ASSIST AT TIMES, PIP 37-40CM APPROX, PT WITH GOOD COUGH EFFORT, SUCTIONED LIGHT PALE YELL TINGE SECRETIONS, CHECK CUFF, CHANGE HME, ALL ALARMS OK, AMBU BAG AT BEDSIDE, NO VENT CHANGES MADE AT THIS TIME, PT WITH NO SOB NOTED. Andi CHAKRABORTYP Addendum: 02/07/17 at 0426 by ETHEL FERGUSON RT Amended: Links added.
[2017-02-07] MEDS: BACLOFEN 10 MG TABLET GT SCH ×3 (05:24→17:08)
[2017-02-07] MEDS: BLOOD SUGAR DIAGNOSTIC 1 EACH STRIP VI SCH ×3 (05:24→17:08)
[2017-02-07] MEDS: NUTRISOURCE FIBER 4 GM PACKET GT SCH ×3 (05:24→21:49)
[2017-02-07 08:02] VITALS: BP 99/60
[2017-02-07] MEDS: ACIDOPHILUS/BULGARICUS CHEW TAB GT SCH ×2 (08:34→21:47)
[2017-02-07] MEDS: FUROSEMIDE 40 MG/4 ML GT SCH (08:35)
[2017-02-07] MEDS: PHENOBARBITAL GT SCH ×2 (08:35→21:48)
[2017-02-07] MEDS: LEVETIRACETAM 500 MG/5 ML LIQUID UDC GT SCH ×2 (08:35→21:47)
[2017-02-07] MEDS: FAMOTIDINE 20 MG TABLET GT SCH ×2 (08:35→21:48)
[2017-02-07] MEDS: COD LIVER OIL/ZINC OXIDE OINT 113 GM TUBE TP SCH (08:36)
[2017-02-07] MEDS: HYDROGEN PEROXIDE 3% 118 ML BOTTLE TP SCH ×2 (08:36→21:49)
[2017-02-07] MEDS: COD LIVER OIL/ZINC OXIDE OINT 113 GM TUBE TOP SCH ×2 (08:36→21:49)
[2017-02-07] MEDS: POTASSIUM CHLORIDE 20 MEQ TAB.PRT.SR XX SCH ×2 (08:36→17:08)
[2017-02-07] MEDS: INSULIN DETEMIR 300 UNIT/3 ML CARTRIDGE SQ SCH ×2 (08:36→21:48)
[2017-02-07] MEDS: VITAMINS A AND D OINT TP SCH (08:36)
[2017-02-07] MEDS: BACITRACIN TP SCH ×2 (08:36→21:49)
[2017-02-07] MEDS: DIABETICSOURCE AC 1000ML LIQUID GT PRN (11:55)
[2017-02-07] MEDS: INSULIN REGULAR, HUMAN 300 UNIT/3 ML VIAL SQ PRN ×2 (12:27→17:08)
[2017-02-07 20:00] VITALS: BP 96/47
[2017-02-07] MEDS: FISH OIL GT SCH (21:48)
[2017-02-07] MEDS: [UNRECOGNIZED DRUG - OTHER] GT SCH (21:48)
[2017-02-07] MEDS: CALCIUM CARBONATE 500 MG TAB.CHEW GT SCH (21:48)
[2017-02-08] MEDS: BLOOD SUGAR DIAGNOSTIC 1 EACH STRIP VI SCH ×4 (00:01→17:08)
[2017-02-08] MEDS: INSULIN REGULAR, HUMAN 300 UNIT/3 ML VIAL SQ PRN ×3 (00:02→17:09)
[2017-02-08] MEDS: NUTRISOURCE FIBER 4 GM PACKET GT SCH ×3 (05:31→21:47)
[2017-02-08] MEDS: BACLOFEN 10 MG TABLET GT SCH ×4 (05:31→17:08)
[2017-02-08 08:00] VITALS: BP 125/64
[2017-02-08] MEDS: ACIDOPHILUS/BULGARICUS CHEW TAB GT SCH ×2 (08:29→21:45)
[2017-02-08] MEDS: FUROSEMIDE 40 MG/4 ML GT SCH (08:29)
[2017-02-08] MEDS: LEVETIRACETAM 500 MG/5 ML LIQUID UDC GT SCH ×2 (08:29→21:45)
[2017-02-08] MEDS: PHENOBARBITAL GT SCH ×2 (08:30→21:45)
[2017-02-08] MEDS: COD LIVER OIL/ZINC OXIDE OINT 113 GM TUBE TOP SCH ×2 (08:31→21:45)
[2017-02-08] MEDS: BACITRACIN TP SCH ×2 (08:31→21:45)
[2017-02-08] MEDS: HYDROGEN PEROXIDE 3% 118 ML BOTTLE TP SCH ×2 (08:31→21:46)
[2017-02-08] MEDS: FAMOTIDINE 20 MG TABLET GT SCH ×2 (08:31→21:45)
[2017-02-08] MEDS: POTASSIUM CHLORIDE 20 MEQ TAB.PRT.SR XX SCH ×2 (08:31→17:08)
[2017-02-08] MEDS: VITAMINS A AND D OINT TP SCH (08:31)
[2017-02-08] MEDS: COD LIVER OIL/ZINC OXIDE OINT 113 GM TUBE TP SCH (08:31)
[2017-02-08] MEDS: INSULIN DETEMIR 300 UNIT/3 ML CARTRIDGE SQ SCH ×2 (08:38→21:46)
--- NOTE | 2017-02-08 10:44 | NUR ---
SEEN BY DR. VICK FULLER.
--- NOTE | 2017-02-08 10:46 | NUR ---
[place] LEFT FOR DR. GALEAS THAT PT. GAINED 10# IN A MONTH AND AWAITING FOR CALL BACK IF NEW ORDERS.
[2017-02-08] MEDS: DIABETICSOURCE AC 1000ML LIQUID GT PRN (12:41)
[2017-02-08 20:49] VITALS: BP 106/51
[2017-02-08] MEDS: CALCIUM CARBONATE 500 MG TAB.CHEW GT SCH (21:45)
[2017-02-08] MEDS: [UNRECOGNIZED DRUG - OTHER] GT SCH (21:45)
[2017-02-08] MEDS: FISH OIL GT SCH (21:45)
[2017-02-09] MEDS: BACLOFEN 10 MG TABLET GT SCH ×4 (00:15→17:10)
[2017-02-09] MEDS: BLOOD SUGAR DIAGNOSTIC 1 EACH STRIP VI SCH ×4 (00:16→17:15)
[2017-02-09] MEDS: INSULIN REGULAR, HUMAN 300 UNIT/3 ML VIAL SQ PRN ×3 (00:17→17:20)
[2017-02-09] MEDS: NUTRISOURCE FIBER 4 GM PACKET GT SCH ×3 (05:23→21:01)
[2017-02-09 08:00] VITALS: BP 118/60
[2017-02-09] MEDS: COD LIVER OIL/ZINC OXIDE OINT 113 GM TUBE TOP SCH ×2 (09:12→20:59)
[2017-02-09] MEDS: FUROSEMIDE 40 MG/4 ML GT SCH (09:12)
[2017-02-09] MEDS: LEVETIRACETAM 500 MG/5 ML LIQUID UDC GT SCH ×2 (09:12→20:57)
[2017-02-09] MEDS: FAMOTIDINE 20 MG TABLET GT SCH ×2 (09:12→20:58)
[2017-02-09] MEDS: PHENOBARBITAL GT SCH ×2 (09:12→20:57)
[2017-02-09] MEDS: BACITRACIN TP SCH ×2 (09:12→20:59)
[2017-02-09] MEDS: ACIDOPHILUS/BULGARICUS CHEW TAB GT SCH ×2 (09:12→20:57)
[2017-02-09] MEDS: COD LIVER OIL/ZINC OXIDE OINT 113 GM TUBE TP SCH (09:13)
[2017-02-09] MEDS: POTASSIUM CHLORIDE 20 MEQ TAB.PRT.SR XX SCH ×2 (09:13→16:40)
[2017-02-09] MEDS: VITAMINS A AND D OINT TP SCH (09:13)
[2017-02-09] MEDS: HYDROGEN PEROXIDE 3% 118 ML BOTTLE TP SCH ×2 (09:13→20:59)
[2017-02-09] MEDS: INSULIN DETEMIR 300 UNIT/3 ML CARTRIDGE SQ SCH ×2 (09:24→21:07)
--- NOTE | 2017-02-09 11:03 | NUR ---
Seen by Dr. Seth, notified patient gained 10 lb in one moth, no new order given at this time.
[2017-02-09] MEDS: DIABETICSOURCE AC 1000ML LIQUID GT PRN (16:53)
[2017-02-09 20:44] VITALS: BP 119/66
--- NOTE | 2017-02-09 20:50 | NUR ---
PT ON CONT HT 50 VENT WITH SHILEY # [address] AND SECURED, WITH SAME CURRENT VENT SETTINGS, PT DOES ASSIST AT TIMERS, WITH GOOD COUGH EFFORT, PT HAS GOOD COUGH EFFORT, SUCTIONED LIGHT PALE YELL TINGE SECRETIONS, SUCTION MOUTH WITH KARINA HALEY, CHECK CUFF, CHANGE HME, ALL ALARMS OK, AMBU BAG AT BEDSIDE, NO VENT CHANGES MADE AT THIS TIME, PT STABLE.Andi FERGUSON RCP Addendum: 02/09/17 at 2052 by ETHEL FERGUSON RT Amended: Links added.
[2017-02-09] MEDS: FISH OIL GT SCH (20:57)
[2017-02-09] MEDS: [UNRECOGNIZED DRUG - OTHER] GT SCH (20:57)
[2017-02-09] MEDS: CALCIUM CARBONATE 500 MG TAB.CHEW GT SCH (20:58)
[2017-02-10] MEDS: BACLOFEN 10 MG TABLET GT SCH ×4 (00:14→17:32)
[2017-02-10] MEDS: INSULIN REGULAR, HUMAN 300 UNIT/3 ML VIAL SQ PRN ×4 (00:15→17:33)
[2017-02-10] MEDS: BLOOD SUGAR DIAGNOSTIC 1 EACH STRIP VI SCH ×4 (05:29→17:32)
[2017-02-10] MEDS: NUTRISOURCE FIBER 4 GM PACKET GT SCH ×3 (05:29→22:05)
[2017-02-10 08:03] VITALS: BP 92/51
[2017-02-10] MEDS: PHENOBARBITAL GT SCH ×2 (08:23→20:32)
[2017-02-10] MEDS: LEVETIRACETAM 500 MG/5 ML LIQUID UDC GT SCH ×2 (08:23→20:32)
[2017-02-10] MEDS: ACIDOPHILUS/BULGARICUS CHEW TAB GT SCH ×2 (08:23→20:32)
[2017-02-10] MEDS: FUROSEMIDE 40 MG/4 ML GT SCH (08:23)
[2017-02-10] MEDS: FAMOTIDINE 20 MG TABLET GT SCH ×2 (08:24→20:32)
[2017-02-10] MEDS: COD LIVER OIL/ZINC OXIDE OINT 113 GM TUBE TP SCH (08:25)
[2017-02-10] MEDS: COD LIVER OIL/ZINC OXIDE OINT 113 GM TUBE TOP SCH ×2 (08:25→20:33)
[2017-02-10] MEDS: VITAMINS A AND D OINT TP SCH (08:25)
[2017-02-10] MEDS: HYDROGEN PEROXIDE 3% 118 ML BOTTLE TP SCH ×2 (08:25→20:33)
[2017-02-10] MEDS: INSULIN DETEMIR 300 UNIT/3 ML CARTRIDGE SQ SCH ×2 (08:25→21:45)
[2017-02-10] MEDS: POTASSIUM CHLORIDE 20 MEQ TAB.PRT.SR XX SCH ×2 (08:25→17:32)
--- NOTE | 2017-02-10 09:22 | NUR ---
Patient received on mechanical ventilation [[place] HT50] with ordered vent settings of AC 12 VT 450 PEEP 5 FIO2 35% No signs of respiratory distress noted at this time.Trach is secure and patent. She is trached with a shiley #6 DCT. ENVIRONMENTAL FIELD SERVICES TECHNICIAN used for cuff inflation. HME was changed without complications. Alarm parameters assessed: on/audible. Spare trach at bedside.
[2017-02-10] MEDS: DIABETICSOURCE AC 1000ML LIQUID GT PRN (18:02)
[2017-02-10] MEDS: CALCIUM CARBONATE 500 MG TAB.CHEW GT SCH (20:32)
[2017-02-10] MEDS: FISH OIL GT SCH (20:32)
[2017-02-10] MEDS: [UNRECOGNIZED DRUG - OTHER] GT SCH (20:32)
[2017-02-10 20:33] VITALS: BP 102/54
--- NOTE | 2017-02-10 21:19 | NUR ---
PT ON CONT HT 50 VENT WITH SHILEY [address] AND SECURED, WITH SAME CURRENT VENT SETTINGS, PT DOES ASSIST AT TIMES, WITH GOOD COUGH EFFORT, SUCTIONED LIGHT PALE YELL TINGE SECRETIONS, WITH NO VENT CHANGES MADE AT THIS TIME, PIP 37-40 CM APPROX, ALL ALARMS OK, AMBU BAG AT BEDSIDE, PT STABLE AT THIS TIME, CHANGE HME AND PASCUAL , CHECK CUFF. Andi CHAKRABORTYP Addendum: 02/10/17 at 2121 by ETHEL FERGUSON RT Amended: Links added.
[2017-02-11] MEDS: INSULIN REGULAR, HUMAN 300 UNIT/3 ML VIAL SQ PRN ×2 (01:09→05:07)
[2017-02-11] MEDS: NUTRISOURCE FIBER 4 GM PACKET GT SCH ×3 (05:06→21:12)
[2017-02-11] MEDS: BACLOFEN 10 MG TABLET GT SCH ×4 (05:06→17:07)
[2017-02-11] MEDS: BLOOD SUGAR DIAGNOSTIC 1 EACH STRIP VI SCH ×4 (05:07→17:07)
[2017-02-11 08:03] VITALS: BP 118/67
[2017-02-11] MEDS: ACIDOPHILUS/BULGARICUS CHEW TAB GT SCH ×2 (08:16→21:08)
[2017-02-11] MEDS: LEVETIRACETAM 500 MG/5 ML LIQUID UDC GT SCH ×2 (08:16→21:08)
[2017-02-11] MEDS: PHENOBARBITAL GT SCH ×2 (08:17→21:11)
[2017-02-11] MEDS: INSULIN DETEMIR 300 UNIT/3 ML CARTRIDGE SQ SCH ×2 (08:17→21:07)
[2017-02-11] MEDS: POTASSIUM CHLORIDE 20 MEQ TAB.PRT.SR XX SCH ×2 (08:17→16:12)
[2017-02-11] MEDS: FAMOTIDINE 20 MG TABLET GT SCH ×2 (08:17→21:11)
[2017-02-11] MEDS: COD LIVER OIL/ZINC OXIDE OINT 113 GM TUBE TOP SCH ×2 (08:17→21:12)
[2017-02-11] MEDS: HYDROGEN PEROXIDE 3% 118 ML BOTTLE TP SCH ×2 (08:17→21:12)
[2017-02-11] MEDS: VITAMINS A AND D OINT TP SCH (08:17)
[2017-02-11] MEDS: FUROSEMIDE 40 MG/4 ML GT SCH (08:17)
[2017-02-11] MEDS: COD LIVER OIL/ZINC OXIDE OINT 113 GM TUBE TP SCH (08:17)
[2017-02-11] MEDS: FISH OIL GT SCH (21:09)
[2017-02-11] MEDS: [UNRECOGNIZED DRUG - OTHER] GT SCH (21:09)
[2017-02-11] MEDS: CALCIUM CARBONATE 500 MG TAB.CHEW GT SCH (21:12)
[2017-02-11 23:10] VITALS: BP 96/52
[2017-02-12] MEDS: BACLOFEN 10 MG TABLET GT SCH ×4 (00:12→18:28)
[2017-02-12] MEDS: BLOOD SUGAR DIAGNOSTIC 1 EACH STRIP VI SCH ×4 (00:12→18:35)
[2017-02-12] MEDS: INSULIN REGULAR, HUMAN 300 UNIT/3 ML VIAL SQ PRN (00:40)
[2017-02-12] MEDS: NUTRISOURCE FIBER 4 GM PACKET GT SCH ×3 (05:02→22:11)
[2017-02-12] MEDS: FUROSEMIDE 40 MG/4 ML GT SCH (08:55)
[2017-02-12] MEDS: PHENOBARBITAL GT SCH ×2 (08:55→20:30)
[2017-02-12] MEDS: LEVETIRACETAM 500 MG/5 ML LIQUID UDC GT SCH ×2 (08:55→20:30)
[2017-02-12] MEDS: FAMOTIDINE 20 MG TABLET GT SCH ×2 (08:55→20:30)
[2017-02-12] MEDS: ACIDOPHILUS/BULGARICUS CHEW TAB GT SCH ×2 (08:55→20:30)
[2017-02-12] MEDS: VITAMINS A AND D OINT TP SCH (08:56)
[2017-02-12] MEDS: COD LIVER OIL/ZINC OXIDE OINT 113 GM TUBE TP SCH (08:56)
[2017-02-12] MEDS: HYDROGEN PEROXIDE 3% 118 ML BOTTLE TP SCH ×2 (08:56→20:31)
[2017-02-12] MEDS: COD LIVER OIL/ZINC OXIDE OINT 113 GM TUBE TOP SCH ×2 (08:56→20:31)
[2017-02-12] MEDS: POTASSIUM CHLORIDE 20 MEQ TAB.PRT.SR XX SCH ×2 (08:56→18:00)
[2017-02-12] MEDS: INSULIN DETEMIR 300 UNIT/3 ML CARTRIDGE SQ SCH ×2 (08:57→20:35)
--- NOTE | 2017-02-12 12:00 | NUR ---
Noted redness on right breast, Kasey COLLAZO notified with no new orders, kept clean and dry, will continue monitoring.
[2017-02-12] MEDS: [UNRECOGNIZED DRUG - OTHER] GT SCH (20:30)
[2017-02-12] MEDS: FISH OIL GT SCH (20:30)
[2017-02-12] MEDS: CALCIUM CARBONATE 500 MG TAB.CHEW GT SCH (20:30)
[2017-02-12 23:26] VITALS: BP 117/63
[2017-02-12] MEDS: DIABETICSOURCE AC 1000ML LIQUID GT PRN (23:35)
[2017-02-13] MEDS: BACLOFEN 10 MG TABLET GT SCH ×4 (00:51→17:20)
[2017-02-13] MEDS: BLOOD SUGAR DIAGNOSTIC 1 EACH STRIP VI SCH ×4 (00:52→17:20)
[2017-02-13] MEDS: NUTRISOURCE FIBER 4 GM PACKET GT SCH ×3 (05:32→21:16)
[2017-02-13 07:38] LABS: CREATININE 0.8 mg/dL (0.6-1.3); POTASSIUM 3.9 mmol/L (3.5-5.1)
[2017-02-13 07:50] LABS: MONOCYTES # (AUTO) 0.2 K/UL (0.1-1.30)
[2017-02-13 08:03] LABS: BASOPHILS % (AUTO) 0.5 % (0.0-2.0); EOSINOPHILS # (AUTO) 0.2 K/uL (0.0-0.7); EOSINOPHILS % (AUTO) 6.2 % (0.0-7.0); HEMATOCRIT 28.1 % (37-47); HEMOGLOBIN 8.7 G/DL (12.0-16.0); LYMPHOCYTES # (AUTO) 1.5 K/UL (0.8-4.8); LYMPHOCYTES % (AUTO) 40.7 % (20.5-51.5); MEAN CORPUSCULAR HEMOGLOBIN 30.8 UUG (27.0-31.0); MEAN CORPUSCULAR HGB CONC 31 g/dL (32.0-37.0); MEAN CORPUSCULAR VOLUME 99.1 FL (81.0-99.0); MONOCYTES % (AUTO) 6.4 % (0.0-11.0); NEUTROPHILS # (AUTO) 1.8 K/UL (1.8-8.9); NEUTROPHILS % (AUTO) 46.2 % (38.5-71.5); RED BLOOD CELL COUNT(AUTO) 2.83 MIL/UL (4.2-5.4); WHITE BLOOD COUNT (AUTO) 3.7 K/UL (4.0-11.2)
[2017-02-13 08:05] LABS: PLATELET COUNT (AUTO) 179 K/UL (150-450)
[2017-02-13] MEDS: ACIDOPHILUS/BULGARICUS CHEW TAB GT SCH ×2 (08:09→21:13)
[2017-02-13] MEDS: LEVETIRACETAM 500 MG/5 ML LIQUID UDC GT SCH ×2 (08:10→21:13)
[2017-02-13] MEDS: FAMOTIDINE 20 MG TABLET GT SCH ×2 (08:12→21:15)
[2017-02-13] MEDS: FUROSEMIDE 40 MG/4 ML GT SCH (08:12)
[2017-02-13] MEDS: PHENOBARBITAL GT SCH ×2 (08:12→21:15)
[2017-02-13] MEDS: COD LIVER OIL/ZINC OXIDE OINT 113 GM TUBE TOP SCH ×2 (08:13→21:16)
[2017-02-13] MEDS: VITAMINS A AND D OINT TP SCH (08:14)
[2017-02-13] MEDS: HYDROGEN PEROXIDE 3% 118 ML BOTTLE TP SCH ×2 (08:14→21:16)
[2017-02-13] MEDS: COD LIVER OIL/ZINC OXIDE OINT 113 GM TUBE TP SCH (08:14)
[2017-02-13] MEDS: POTASSIUM CHLORIDE 20 MEQ TAB.PRT.SR XX SCH ×2 (08:14→17:20)
[2017-02-13] MEDS: INSULIN DETEMIR 300 UNIT/3 ML CARTRIDGE SQ SCH ×2 (08:15→21:17)
[2017-02-13 09:48] VITALS: BP 126/61
[2017-02-13] MEDS: INSULIN REGULAR, HUMAN 300 UNIT/3 ML VIAL SQ PRN (12:41)
--- NOTE | 2017-02-13 15:58 | NUR ---
Patient noted with G-tube site redness and pus discharge. Notified Dr. Gilbert, with order for I/D and GI consults. Paged both Dr. Tsai and Dr. Frausto. Ramesh Becker NP for Dr. tsai called back with order to culture the G-tube pus and someone will see the patient tomorrow. Noted and carried out.
--- NOTE | 2017-02-13 16:01 | NUR ---
INTERDISCIPLINARY PLAN OF CARE CONFERENCE was held today. Patient's family was invited to attend, but they were unable to. Dr. Gilbert and the Interdisciplinary Team reviewed the current plan of care in detail. RN provided updates on patient's current medical condition and medications. See RN IDT conference notes. No major changes were reported at this time. See also all other disciplines IDT notes and physician's notes for additional details.
--- NOTE | 2017-02-13 16:30 | NUR ---
Received a call from Dr. Frausto Regarding patients G-tube site redness and pus discharge. Relayed assessment findings, will see patient tomorrow.
[2017-02-13 20:00] VITALS: BP 93/53
[2017-02-13] MEDS: CALCIUM CARBONATE 500 MG TAB.CHEW GT SCH (21:15)
[2017-02-13] MEDS: [UNRECOGNIZED DRUG - OTHER] GT SCH (21:15)
[2017-02-13] MEDS: FISH OIL GT SCH (21:15)
[2017-02-14] MEDS: BACLOFEN 10 MG TABLET GT SCH ×5 (00:13→23:16)
[2017-02-14] MEDS: BLOOD SUGAR DIAGNOSTIC 1 EACH STRIP VI SCH ×5 (00:13→23:16)
[2017-02-14] MEDS: DIABETICSOURCE AC 1000ML LIQUID GT PRN (00:25)
[2017-02-14] MEDS: NUTRISOURCE FIBER 4 GM PACKET GT SCH ×3 (05:14→21:36)
[2017-02-14 07:22] VITALS: BP 113/69
[2017-02-14] MEDS: LEVETIRACETAM 500 MG/5 ML LIQUID UDC GT SCH ×2 (08:49→21:36)
[2017-02-14] MEDS: ACIDOPHILUS/BULGARICUS CHEW TAB GT SCH ×2 (08:49→21:36)
[2017-02-14] MEDS: PHENOBARBITAL GT SCH ×2 (08:50→21:36)
[2017-02-14] MEDS: FAMOTIDINE 20 MG TABLET GT SCH ×2 (08:50→21:36)
[2017-02-14] MEDS: FUROSEMIDE 40 MG/4 ML GT SCH (08:50)
[2017-02-14] MEDS: INSULIN DETEMIR 300 UNIT/3 ML CARTRIDGE SQ SCH ×2 (08:51→21:37)
[2017-02-14] MEDS: COD LIVER OIL/ZINC OXIDE OINT 113 GM TUBE TP SCH (08:52)
[2017-02-14] MEDS: COD LIVER OIL/ZINC OXIDE OINT 113 GM TUBE TOP SCH ×2 (08:52→21:36)
[2017-02-14] MEDS: VITAMINS A AND D OINT TP SCH (08:53)
[2017-02-14] MEDS: POTASSIUM CHLORIDE 20 MEQ TAB.PRT.SR XX SCH ×2 (08:53→17:04)
[2017-02-14] MEDS: HYDROGEN PEROXIDE 3% 118 ML BOTTLE TP SCH ×2 (08:53→21:36)
[2017-02-14] MEDS: INSULIN REGULAR, HUMAN 300 UNIT/3 ML VIAL SQ PRN ×2 (11:33→17:05)
--- NOTE | 2017-02-14 16:05 | NUR ---
Seen by Dr. Newman, with no new orders.
[2017-02-14 20:13] VITALS: BP 107/58
--- NOTE | 2017-02-14 20:56 | NUR ---
PT ON CONT HT 50 VENT WITH SHILEY # [address] AND SECURED, WITH SAME CURRENT VENT SETTINGS, PT DOES ASSIST AT TIMES, WITH GOOD COUGH EFFORT, SUCTIONED LIGHT PALE YELL TINGE SECRETIONS, PT DOES COUGH A LOT, PIP 39-43 CM APPROX, NO VENT CHANGES MADE AT THIS TIME, CHANGE HME AND CHECK CUFF, ALL ALARMS OK, AMBU BAG AT BEDSIDE, NO VENT CHANGES MADE AT THIS TIME. RYANNE SMALL Addendum: 02/14/17 at 2057 by ETHEL HORVATH Amended: Links added.
[2017-02-14] MEDS: [UNRECOGNIZED DRUG - OTHER] GT SCH (21:36)
[2017-02-14] MEDS: FISH OIL GT SCH (21:36)
[2017-02-14] MEDS: CALCIUM CARBONATE 500 MG TAB.CHEW GT SCH (21:36)
[2017-02-15] MEDS: BACLOFEN 10 MG TABLET GT SCH ×3 (05:46→17:16)
[2017-02-15] MEDS: NUTRISOURCE FIBER 4 GM PACKET GT SCH ×3 (05:46→21:05)
[2017-02-15] MEDS: BLOOD SUGAR DIAGNOSTIC 1 EACH STRIP VI SCH ×3 (05:46→17:17)
[2017-02-15] MEDS: FUROSEMIDE 40 MG/4 ML GT SCH (08:01)
[2017-02-15] MEDS: PHENOBARBITAL GT SCH ×2 (08:01→21:04)
[2017-02-15] MEDS: ACIDOPHILUS/BULGARICUS CHEW TAB GT SCH ×2 (08:01→21:03)
[2017-02-15] MEDS: LEVETIRACETAM 500 MG/5 ML LIQUID UDC GT SCH ×2 (08:01→21:03)
[2017-02-15] MEDS: INSULIN DETEMIR 300 UNIT/3 ML CARTRIDGE SQ SCH ×2 (08:02→21:05)
[2017-02-15] MEDS: COD LIVER OIL/ZINC OXIDE OINT 113 GM TUBE TOP SCH ×2 (08:02→21:05)
[2017-02-15] MEDS: FAMOTIDINE 20 MG TABLET GT SCH ×2 (08:02→21:04)
[2017-02-15] MEDS: COD LIVER OIL/ZINC OXIDE OINT 113 GM TUBE TP SCH (08:03)
[2017-02-15] MEDS: VITAMINS A AND D OINT TP SCH (08:03)
[2017-02-15] MEDS: HYDROGEN PEROXIDE 3% 118 ML BOTTLE TP SCH ×2 (08:03→21:05)
[2017-02-15] MEDS: POTASSIUM CHLORIDE 20 MEQ TAB.PRT.SR XX SCH ×2 (08:03→17:16)
--- NOTE | 2017-02-15 08:45 | NUR ---
PT ON HT-50 VENT, SETTINGS ARE AC 12, Vt 450, +5, 35% FIO2. NO S\S OF RESPIRATORY DISTRESS NOTED. SHILEY 6 TRACH IS PATENT AND SECURED WITH TIES. SUCTIONED MODERATE AMOUNTS OF YELLOW THICK SECRETIONS. HME CHANGED, BVM AND BACK UP TRACH AT BEDSIDE. ALARMS ARE ON AND AUDIBLE, WILL CONTINUE TO MONITOR.
[2017-02-15 09:31] VITALS: BP 110/59
--- NOTE | 2017-02-15 13:00 | NUR ---
SEEN BY HARSH FULLER.
[2017-02-15] MEDS: INSULIN REGULAR, HUMAN 300 UNIT/3 ML VIAL SQ PRN (17:17)
--- NOTE | 2017-02-15 18:00 | NUR ---
SEEN BY DANA FULLER.
--- NOTE | 2017-02-15 19:00 | NUR ---
AWAITING FOR DR. NESS ,ENDORSED TO NOC SHIFT TO F/U.
[2017-02-15 20:16] VITALS: BP 109/55
[2017-02-15] MEDS: FISH OIL GT SCH (21:03)
[2017-02-15] MEDS: [UNRECOGNIZED DRUG - OTHER] GT SCH (21:03)
[2017-02-15] MEDS: CALCIUM CARBONATE 500 MG TAB.CHEW GT SCH (21:06)
--- NOTE | 2017-02-15 21:32 | NUR ---
PT ON CONT HT 50 VENT WITH SHILEY # [address] AND SECURED, WITH SAME CURRENT VENT SETTINGS, PT DOES ASSIST AT TIMES, WITH GOOD COUGH EFFORT, SUCTIONED VERY LIGHT PALE YELL TINGE SECRETIONS, WITH PIP 40-44CM APPROX. CHECK CUFF, CHANGE HME, NO VENT CHANGES MADE AT THIS TIME, ALL ALARMS OK, AMBU BAG AT BEDSIDE, PT STABLE. Andi CHAKRABORTYP Addendum: 02/15/17 at 2134 by ETHEL FERGUSON RT Amended: Links added.
[2017-02-16] MEDS: BACLOFEN 10 MG TABLET GT SCH ×4 (00:12→17:17)
[2017-02-16] MEDS: BLOOD SUGAR DIAGNOSTIC 1 EACH STRIP VI SCH ×4 (00:16→17:21)
[2017-02-16] MEDS: NUTRISOURCE FIBER 4 GM PACKET GT SCH ×3 (05:16→21:20)
[2017-02-16 08:01] VITALS: BP 117/64
[2017-02-16 08:02] VITALS: BP 103/50
[2017-02-16] MEDS: ACIDOPHILUS/BULGARICUS CHEW TAB GT SCH ×2 (08:08→20:26)
[2017-02-16] MEDS: PHENOBARBITAL GT SCH ×2 (08:08→20:26)
[2017-02-16] MEDS: LEVETIRACETAM 500 MG/5 ML LIQUID UDC GT SCH ×2 (08:08→20:26)
[2017-02-16] MEDS: FUROSEMIDE 40 MG/4 ML GT SCH (08:08)
[2017-02-16] MEDS: FAMOTIDINE 20 MG TABLET GT SCH ×2 (08:09→20:26)
[2017-02-16] MEDS: HYDROGEN PEROXIDE 3% 118 ML BOTTLE TP SCH ×2 (08:10→20:27)
[2017-02-16] MEDS: VITAMINS A AND D OINT TP SCH (08:10)
[2017-02-16] MEDS: INSULIN DETEMIR 300 UNIT/3 ML CARTRIDGE SQ SCH ×2 (08:10→20:56)
[2017-02-16] MEDS: COD LIVER OIL/ZINC OXIDE OINT 113 GM TUBE TOP SCH ×2 (08:10→20:27)
[2017-02-16] MEDS: POTASSIUM CHLORIDE 20 MEQ TAB.PRT.SR XX SCH ×2 (08:10→17:15)
[2017-02-16] MEDS: COD LIVER OIL/ZINC OXIDE OINT 113 GM TUBE TP SCH (08:10)
[2017-02-16] MEDS: DIABETICSOURCE AC 1000ML LIQUID GT PRN (11:35)
[2017-02-16] MEDS: INSULIN REGULAR, HUMAN 300 UNIT/3 ML VIAL SQ PRN ×2 (11:36→17:21)
--- NOTE | 2017-02-16 14:31 | NUR ---
Paged and relayed final wound culture result (culture of G-tube site pus) to Dr. Newman with no new orders but to continue to monitor patient off systemic antibiotic.
--- NOTE | 2017-02-16 15:10 | NUR ---
Left message for the Dr. Frausto with his medical secretary receptionist Hazel, regarding GI consults on G-tube pus discharge for patient.
[2017-02-16 20:06] VITALS: BP 100/50
[2017-02-16] MEDS: CALCIUM CARBONATE 500 MG TAB.CHEW GT SCH (20:26)
[2017-02-16] MEDS: FISH OIL GT SCH (20:26)
[2017-02-16] MEDS: [UNRECOGNIZED DRUG - OTHER] GT SCH (20:26)
--- NOTE | 2017-02-16 20:38 | NUR ---
Seen and examined by Dr. Elizabeth Newman (ID) with new order for soft tissue ultrasound of abdominal wall aroung GT site to rule out Hematoma or fluid collection, noted and carried out.
--- NOTE | 2017-02-17 | NUR ---
NPO at this time in preparation for abdominal ultrasound in am, blood sugar was 115, kept clean and comfortable, no discharge or drainage noted from GT site at this time.
[2017-02-17] MEDS: BACLOFEN 10 MG TABLET GT SCH ×4 (00:21→17:33)
[2017-02-17] MEDS: BLOOD SUGAR DIAGNOSTIC 1 EACH STRIP VI SCH ×4 (00:26→17:33)
[2017-02-17] MEDS: NUTRISOURCE FIBER 4 GM PACKET GT SCH ×3 (05:19→21:00)
[2017-02-17 08:00] VITALS: BP 109/61
[2017-02-17] MEDS: INSULIN DETEMIR 300 UNIT/3 ML CARTRIDGE SQ SCH ×2 (09:00→21:20)
[2017-02-17] MEDS: LEVETIRACETAM 500 MG/5 ML LIQUID UDC GT SCH ×2 (09:57→20:59)
[2017-02-17] MEDS: ACIDOPHILUS/BULGARICUS CHEW TAB GT SCH ×2 (09:57→20:59)
[2017-02-17] MEDS: FAMOTIDINE 20 MG TABLET GT SCH ×2 (09:58→20:59)
[2017-02-17] MEDS: FUROSEMIDE 40 MG/4 ML GT SCH (09:58)
[2017-02-17] MEDS: COD LIVER OIL/ZINC OXIDE OINT 113 GM TUBE TP SCH (09:58)
[2017-02-17] MEDS: PHENOBARBITAL GT SCH ×2 (09:58→20:59)
[2017-02-17] MEDS: COD LIVER OIL/ZINC OXIDE OINT 113 GM TUBE TOP SCH ×2 (09:58→20:59)
[2017-02-17] MEDS: POTASSIUM CHLORIDE 20 MEQ TAB.PRT.SR XX SCH ×2 (09:59→17:32)
[2017-02-17] MEDS: HYDROGEN PEROXIDE 3% 118 ML BOTTLE TP SCH ×2 (09:59→20:59)
[2017-02-17] MEDS: VITAMINS A AND D OINT TP SCH (09:59)
[2017-02-17] MEDS: INSULIN REGULAR, HUMAN 300 UNIT/3 ML VIAL SQ PRN ×2 (11:54→17:33)
--- NOTE | 2017-02-17 14:39 | NUR ---
SEEN BY HUNTER Mcgarry AND ROXIEO.
--- NOTE | 2017-02-17 20:12 | NUR ---
Received pt on HT-50 vent with the following settings of AC-12, Vt-450, PEEP+5, FIO2-35%, trached with Shiley#6 DCT trach, which is in the place and secure. No distress noted. Airway care done, pt responded to physical stimuli. HME and Sx Juarez changed. Resus. bag and back up trach at bedside. Vent and alarms checked and reset.
[2017-02-17 20:13] VITALS: BP 115/58
[2017-02-17] MEDS: DIABETICSOURCE AC 1000ML LIQUID GT PRN (20:59)
[2017-02-17] MEDS: CALCIUM CARBONATE 500 MG TAB.CHEW GT SCH (20:59)
[2017-02-17] MEDS: [UNRECOGNIZED DRUG - OTHER] GT SCH (20:59)
[2017-02-17] MEDS: FISH OIL GT SCH (20:59)
[2017-02-18] MEDS: BLOOD SUGAR DIAGNOSTIC 1 EACH STRIP VI SCH ×4 (00:28→17:20)
[2017-02-18] MEDS: BACLOFEN 10 MG TABLET GT SCH ×4 (00:28→17:05)
[2017-02-18] MEDS: NUTRISOURCE FIBER 4 GM PACKET GT SCH ×3 (05:26→21:46)
[2017-02-18 08:00] VITALS: BP 116/69
--- NOTE | 2017-02-18 08:00 | NUR ---
Pt received in bed, laying semi-Huff's, awake - eyes open, obtunded - unable to communicate, withdraws to physical stimuli.. Pt trach: Shiley [address] / secure with tie, no visible sign of skin irritation / breakdown noted under / around trach tie.. Trach site clean / dry, stoma appears normal, no discoloration noted.. Continuous mechanical ventilation, vent: HT-50 w/settings: A/C 12, Vt 450, PEEP +5, FiO2 35%, tolerating well, no changes made to vent settings at this time.. Vent alarms checked, alarms on / audible and functioning properly at this time.. BVM / back up trach at bedside.. No s/s of respiratory distress / S.O.B noted.. Will continue to monitor..
[2017-02-18] MEDS: LEVETIRACETAM 500 MG/5 ML LIQUID UDC GT SCH ×2 (08:33→21:45)
[2017-02-18] MEDS: FAMOTIDINE 20 MG TABLET GT SCH ×2 (08:33→21:45)
[2017-02-18] MEDS: ACIDOPHILUS/BULGARICUS CHEW TAB GT SCH ×2 (08:33→21:45)
[2017-02-18] MEDS: FUROSEMIDE 40 MG/4 ML GT SCH (08:33)
[2017-02-18] MEDS: PHENOBARBITAL GT SCH ×2 (08:33→21:45)
[2017-02-18] MEDS: COD LIVER OIL/ZINC OXIDE OINT 113 GM TUBE TP SCH (08:34)
[2017-02-18] MEDS: VITAMINS A AND D OINT TP SCH (08:34)
[2017-02-18] MEDS: HYDROGEN PEROXIDE 3% 118 ML BOTTLE TP SCH ×2 (08:34→21:46)
[2017-02-18] MEDS: POTASSIUM CHLORIDE 20 MEQ TAB.PRT.SR XX SCH ×2 (08:34→16:38)
[2017-02-18] MEDS: INSULIN DETEMIR 300 UNIT/3 ML CARTRIDGE SQ SCH ×2 (08:34→21:00)
[2017-02-18] MEDS: COD LIVER OIL/ZINC OXIDE OINT 113 GM TUBE TOP SCH ×2 (08:34→21:46)
--- NOTE | 2017-02-18 12:25 | NUR ---
SEEN BY DR. ROBERTSON AND WITH NNO.
--- NOTE | 2017-02-18 20:10 | NUR ---
Pt received on Continuous mechanical ventilation via trach, in semi fowlers position and has limited response to verbal stimuli. Pt is on [place] HT-50 vent with settings of A/C-12, VT-450, PEEP +5, FIO2-35%. Tolerating vent settings well. SpO2-100%. Sxn'd small amts of yellowish/white secretions. No signs or symptoms of respiratory distress noted. Trach is a Roo[place].comley 6 DCT. Minimal leak technique used to assess cuff inflation. Trach is patent and secure. No irritation or redness noted around stoma or trach tie. HME changed. PPE used. Vent alarm parameters checked, on and audible. Vent plugged into red emergency outlet. Bag/valve/mask and back up trach bedside. Will continue to monitor.
[2017-02-18 20:18] VITALS: BP 112/57
[2017-02-18] MEDS: [UNRECOGNIZED DRUG - OTHER] GT SCH (21:45)
[2017-02-18] MEDS: FISH OIL GT SCH (21:45)
[2017-02-18] MEDS: CALCIUM CARBONATE 500 MG TAB.CHEW GT SCH (21:45)
[2017-02-18] MEDS: DIABETICSOURCE AC 1000ML LIQUID GT PRN (22:18)
--- NOTE | 2017-02-18 23:19 | NUR ---
Seen and examined by Zeferino Lomax with no order.
[2017-02-19] MEDS: BLOOD SUGAR DIAGNOSTIC 1 EACH STRIP VI SCH ×5 (00:26→23:39)
[2017-02-19] MEDS: BACLOFEN 10 MG TABLET GT SCH ×5 (00:26→23:39)
[2017-02-19] MEDS: NUTRISOURCE FIBER 4 GM PACKET GT SCH ×3 (06:12→21:16)
[2017-02-19 08:00] VITALS: BP 117/63
[2017-02-19] MEDS: FUROSEMIDE 40 MG/4 ML GT SCH (08:27)
[2017-02-19] MEDS: ACIDOPHILUS/BULGARICUS CHEW TAB GT SCH ×2 (08:27→20:17)
[2017-02-19] MEDS: LEVETIRACETAM 500 MG/5 ML LIQUID UDC GT SCH ×2 (08:27→20:17)
[2017-02-19] MEDS: FAMOTIDINE 20 MG TABLET GT SCH ×2 (08:27→20:18)
[2017-02-19] MEDS: PHENOBARBITAL GT SCH ×2 (08:27→20:18)
[2017-02-19] MEDS: COD LIVER OIL/ZINC OXIDE OINT 113 GM TUBE TOP SCH ×2 (08:29→20:18)
[2017-02-19] MEDS: POTASSIUM CHLORIDE 20 MEQ TAB.PRT.SR XX SCH ×2 (08:29→17:28)
[2017-02-19] MEDS: HYDROGEN PEROXIDE 3% 118 ML BOTTLE TP SCH ×2 (08:29→20:18)
[2017-02-19] MEDS: INSULIN DETEMIR 300 UNIT/3 ML CARTRIDGE SQ SCH ×2 (08:29→20:42)
[2017-02-19] MEDS: VITAMINS A AND D OINT TP SCH (08:29)
[2017-02-19] MEDS: COD LIVER OIL/ZINC OXIDE OINT 113 GM TUBE TP SCH (08:29)
[2017-02-19] MEDS: FISH OIL GT SCH (20:17)
[2017-02-19] MEDS: [UNRECOGNIZED DRUG - OTHER] GT SCH (20:17)
[2017-02-19] MEDS: CALCIUM CARBONATE 500 MG TAB.CHEW GT SCH (20:18)
[2017-02-19 23:18] VITALS: BP 98/63
[2017-02-19] MEDS: DIABETICSOURCE AC 1000ML LIQUID GT PRN (23:40)
[2017-02-20] MEDS: BLOOD SUGAR DIAGNOSTIC 1 EACH STRIP VI SCH ×3 (05:20→17:00)
[2017-02-20] MEDS: BACLOFEN 10 MG TABLET GT SCH ×3 (05:20→17:00)
[2017-02-20] MEDS: NUTRISOURCE FIBER 4 GM PACKET GT SCH ×3 (05:20→21:31)
[2017-02-20 08:00] VITALS: BP 102/54
[2017-02-20] MEDS: FAMOTIDINE 20 MG TABLET GT SCH ×2 (08:36→21:29)
[2017-02-20] MEDS: LEVETIRACETAM 500 MG/5 ML LIQUID UDC GT SCH ×2 (08:36→21:28)
[2017-02-20] MEDS: FUROSEMIDE 40 MG/4 ML GT SCH (08:36)
[2017-02-20] MEDS: PHENOBARBITAL GT SCH ×2 (08:36→21:29)
[2017-02-20] MEDS: ACIDOPHILUS/BULGARICUS CHEW TAB GT SCH ×2 (08:36→21:28)
[2017-02-20] MEDS: VITAMINS A AND D OINT TP SCH (08:38)
[2017-02-20] MEDS: POTASSIUM CHLORIDE 20 MEQ TAB.PRT.SR XX SCH ×2 (08:38→16:59)
[2017-02-20] MEDS: COD LIVER OIL/ZINC OXIDE OINT 113 GM TUBE TOP SCH ×2 (08:38→21:31)
[2017-02-20] MEDS: INSULIN DETEMIR 300 UNIT/3 ML CARTRIDGE SQ SCH ×2 (08:38→21:32)
[2017-02-20] MEDS: HYDROGEN PEROXIDE 3% 118 ML BOTTLE TP SCH ×2 (08:38→21:31)
[2017-02-20] MEDS: COD LIVER OIL/ZINC OXIDE OINT 113 GM TUBE TP SCH (08:38)
--- NOTE | 2017-02-20 15:20 | NUR ---
SEEN BY DR. VICK FULLER.
[2017-02-20] MEDS: CALCIUM CARBONATE 500 MG TAB.CHEW GT SCH (21:29)
[2017-02-20] MEDS: FISH OIL GT SCH (21:29)
[2017-02-20] MEDS: [UNRECOGNIZED DRUG - OTHER] GT SCH (21:29)
--- NOTE | 2017-02-20 22:14 | NUR ---
PT ON CONT HT 50 VENT WITH SHILEY # [address] AND SECURED, WITH SAME CURRENT VENT SETTINGS, PT DOES ASSIST AT TIMES, GOOD COUGH EFFORT, SUCTIONED LIGHT PALE YELL TINGE SECRETIONS, WITH NO VENT CHANGES MADE AT THIS TIME, CHECK CUFF, CHANGE HME, NO SIGNS OF RESP. DISTRESS NOTED. Andi CHAKRABORTYP Addendum: 02/20/17 at 2215 by ETHEL FERGUSON RT Amended: Links added.
[2017-02-20 23:28] VITALS: BP 100/47
--- NOTE | 2017-02-21 | NUR ---
Accucheck done with BS 77,orange juice given.After an hour accucheck repeated BS was 98.
[2017-02-21] MEDS: BACLOFEN 10 MG TABLET GT SCH ×5 (00:21→23:12)
[2017-02-21] MEDS: BLOOD SUGAR DIAGNOSTIC 1 EACH STRIP VI SCH ×5 (00:21→23:12)
[2017-02-21] MEDS: DIABETICSOURCE AC 1000ML LIQUID GT PRN (01:32)
[2017-02-21] MEDS: NUTRISOURCE FIBER 4 GM PACKET GT SCH ×3 (05:18→21:32)
--- NOTE | 2017-02-21 07:32 | NUR ---
PATIENT RECEIVED ON CONTINUOUS MECHANICAL VENTILATION . TRACH PROPERLY SECURED AND INTACT. AIRWAY PATENT. PATIENT TOLERATING PRESCRIBED VENTILATOR SETTINGS FINE SHOWING NO EVIDENCE OF RESPIRATORY DISTRESS. BREATH SOUNDS RHONCHI. PRN TRACHEAL SUCTIONING PERFORMED AND HAD MODERATE AMOUNT OF OFF WHITE YELLOWISH SEMI THICK SECRETIONS. PATIENT POSITIONED SEMI BROOKE WITH HEAD OF THE BED ELEVATED 35-45 DEGREE ANGLE. VENT ALARMS SET,AUDIBLE, AND WORKING. VENT PLUGGED INTO RED OUTLET. PT APPEARS COMFORTABLE.
[2017-02-21 08:00] VITALS: BP 101/46
[2017-02-21] MEDS: ACIDOPHILUS/BULGARICUS CHEW TAB GT SCH ×2 (09:43→21:29)
[2017-02-21] MEDS: LEVETIRACETAM 500 MG/5 ML LIQUID UDC GT SCH ×2 (09:43→21:29)
[2017-02-21] MEDS: HYDROGEN PEROXIDE 3% 118 ML BOTTLE TP SCH ×2 (09:44→21:32)
[2017-02-21] MEDS: COD LIVER OIL/ZINC OXIDE OINT 113 GM TUBE TP SCH (09:44)
[2017-02-21] MEDS: PHENOBARBITAL GT SCH ×2 (09:44→21:30)
[2017-02-21] MEDS: FUROSEMIDE 40 MG/4 ML GT SCH (09:44)
[2017-02-21] MEDS: COD LIVER OIL/ZINC OXIDE OINT 113 GM TUBE TOP SCH ×2 (09:44→21:32)
[2017-02-21] MEDS: FAMOTIDINE 20 MG TABLET GT SCH ×2 (09:44→21:30)
[2017-02-21] MEDS: VITAMINS A AND D OINT TP SCH (09:44)
[2017-02-21] MEDS: POTASSIUM CHLORIDE 20 MEQ TAB.PRT.SR XX SCH ×2 (09:45→17:09)
[2017-02-21] MEDS: INSULIN DETEMIR 300 UNIT/3 ML CARTRIDGE SQ SCH ×2 (09:46→21:31)
--- NOTE | 2017-02-21 12:30 | NUR ---
SEEN BY HARSH FULLER.
--- NOTE | 2017-02-21 15:15 | NUR ---
SW received patient's annual [employer] Payee Report from in the mail today. ESTEFANÍA notified hospital controller Lluvia Mcnally about the receipt of the form, and that ESTEFANÍA was forwarding it to him via interoffice mail. ESTEFANÍA put the form in the interoffice mail addressed to Lluvia Mcnally.
--- NOTE | 2017-02-21 16:30 | NUR ---
SEEN BY DR. ANIBAL FULLER.
[2017-02-21] MEDS: FISH OIL GT SCH (21:30)
[2017-02-21] MEDS: [UNRECOGNIZED DRUG - OTHER] GT SCH (21:30)
[2017-02-21] MEDS: CALCIUM CARBONATE 500 MG TAB.CHEW GT SCH (21:30)
[2017-02-21 23:07] VITALS: BP 94/46
[2017-02-22] MEDS: DIABETICSOURCE AC 1000ML LIQUID GT PRN (01:00)
--- NOTE | 2017-02-22 04:35 | NUR ---
PT STILL HAS REDNESS ON BOTH OF ARMS NO S/S OF PAIN CONTINUE MONITOR FOR REDNESS.
[2017-02-22] MEDS: BLOOD SUGAR DIAGNOSTIC 1 EACH STRIP VI SCH ×3 (05:47→17:50)
[2017-02-22] MEDS: BACLOFEN 10 MG TABLET GT SCH ×3 (05:47→17:39)
[2017-02-22] MEDS: NUTRISOURCE FIBER 4 GM PACKET GT SCH ×3 (05:47→21:16)
[2017-02-22 08:00] VITALS: BP 93/59
[2017-02-22] MEDS: ACIDOPHILUS/BULGARICUS CHEW TAB GT SCH ×2 (09:48→21:14)
[2017-02-22] MEDS: LEVETIRACETAM 500 MG/5 ML LIQUID UDC GT SCH ×2 (09:48→21:14)
[2017-02-22] MEDS: FAMOTIDINE 20 MG TABLET GT SCH ×2 (09:49→21:15)
[2017-02-22] MEDS: PHENOBARBITAL GT SCH ×2 (09:49→21:15)
[2017-02-22] MEDS: FUROSEMIDE 40 MG/4 ML GT SCH (09:49)
[2017-02-22] MEDS: COD LIVER OIL/ZINC OXIDE OINT 113 GM TUBE TP SCH (09:51)
[2017-02-22] MEDS: COD LIVER OIL/ZINC OXIDE OINT 113 GM TUBE TOP SCH ×2 (09:51→21:16)
[2017-02-22] MEDS: INSULIN DETEMIR 300 UNIT/3 ML CARTRIDGE SQ SCH ×2 (09:51→21:15)
[2017-02-22] MEDS: POTASSIUM CHLORIDE 20 MEQ TAB.PRT.SR XX SCH ×2 (09:51→17:39)
[2017-02-22] MEDS: HYDROGEN PEROXIDE 3% 118 ML BOTTLE TP SCH ×2 (09:51→21:16)
[2017-02-22] MEDS: VITAMINS A AND D OINT TP SCH (09:51)
[2017-02-22] MEDS: FISH OIL GT SCH (21:15)
[2017-02-22] MEDS: CALCIUM CARBONATE 500 MG TAB.CHEW GT SCH (21:15)
[2017-02-22] MEDS: [UNRECOGNIZED DRUG - OTHER] GT SCH (21:15)
[2017-02-22 22:24] VITALS: BP 103/62
[2017-02-23] MEDS: BLOOD SUGAR DIAGNOSTIC 1 EACH STRIP VI SCH ×4 (00:12→17:18)
[2017-02-23] MEDS: BACLOFEN 10 MG TABLET GT SCH ×4 (00:12→17:18)
[2017-02-23] MEDS: DIABETICSOURCE AC 1000ML LIQUID GT PRN (02:58)
[2017-02-23] MEDS: NUTRISOURCE FIBER 4 GM PACKET GT SCH ×3 (05:56→21:07)
[2017-02-23 08:00] VITALS: BP 90/37
--- NOTE | 2017-02-23 08:00 | NUR ---
pt remains with bilateral redness on both arms handled pt gentle every time care is provided continue to monitor closely. Addendum: 02/23/17 at 1750 by FLORES RAMOS LVN No pain or discomfort noted.
[2017-02-23] MEDS: ACIDOPHILUS/BULGARICUS CHEW TAB GT SCH ×2 (08:32→21:06)
[2017-02-23] MEDS: LEVETIRACETAM 500 MG/5 ML LIQUID UDC GT SCH ×2 (08:32→21:06)
[2017-02-23] MEDS: FUROSEMIDE 40 MG/4 ML GT SCH (08:32)
[2017-02-23] MEDS: FAMOTIDINE 20 MG TABLET GT SCH ×2 (08:34→21:06)
[2017-02-23] MEDS: PHENOBARBITAL GT SCH ×2 (08:34→21:06)
[2017-02-23] MEDS: COD LIVER OIL/ZINC OXIDE OINT 113 GM TUBE TOP SCH ×2 (08:36→21:07)
[2017-02-23] MEDS: INSULIN DETEMIR 300 UNIT/3 ML CARTRIDGE SQ SCH ×2 (08:36→21:58)
[2017-02-23] MEDS: HYDROGEN PEROXIDE 3% 118 ML BOTTLE TP SCH ×2 (08:36→21:07)
[2017-02-23] MEDS: POTASSIUM CHLORIDE 20 MEQ TAB.PRT.SR XX SCH ×2 (08:36→17:18)
[2017-02-23] MEDS: VITAMINS A AND D OINT TP SCH (08:36)
[2017-02-23] MEDS: COD LIVER OIL/ZINC OXIDE OINT 113 GM TUBE TP SCH (08:36)
[2017-02-23] MEDS: CALCIUM CARBONATE 500 MG TAB.CHEW GT SCH (21:06)
[2017-02-23] MEDS: [UNRECOGNIZED DRUG - OTHER] GT SCH (21:06)
[2017-02-23] MEDS: FISH OIL GT SCH (21:06)
[2017-02-23 23:07] VITALS: BP 104/57
[2017-02-24] MEDS: BACLOFEN 10 MG TABLET GT SCH ×4 (00:09→17:04)
[2017-02-24] MEDS: BLOOD SUGAR DIAGNOSTIC 1 EACH STRIP VI SCH ×4 (00:09→17:04)
[2017-02-24] MEDS: DIABETICSOURCE AC 1000ML LIQUID GT PRN (04:13)
[2017-02-24] MEDS: NUTRISOURCE FIBER 4 GM PACKET GT SCH ×3 (06:02→22:01)
--- NOTE | 2017-02-24 07:05 | NUR ---
Trached resident was received on mechanical ventilation [[place] HT50] with ordered vent settings of AC 12 VT 450 PEEP 5 FIO2 35% No SOB or respiratory distress noted at this time.Trach is secure and patent. She is trached with a shiley #6 DCT. TELECOMMUNICATIONS PROFESSIONAL used for cuff inflation. HME was changed without complications. Alarm parameters on/audible. Spare trach at bedside.
[2017-02-24] MEDS: INSULIN DETEMIR 300 UNIT/3 ML CARTRIDGE SQ SCH ×2 (08:54→21:00)
[2017-02-24] MEDS: PHENOBARBITAL GT SCH ×2 (08:56→21:00)
[2017-02-24] MEDS: LEVETIRACETAM 500 MG/5 ML LIQUID UDC GT SCH ×2 (08:56→21:00)
[2017-02-24] MEDS: ACIDOPHILUS/BULGARICUS CHEW TAB GT SCH ×2 (08:56→21:00)
[2017-02-24] MEDS: FUROSEMIDE 40 MG/4 ML GT SCH (08:56)
[2017-02-24] MEDS: FAMOTIDINE 20 MG TABLET GT SCH ×2 (08:56→21:00)
[2017-02-24] MEDS: COD LIVER OIL/ZINC OXIDE OINT 113 GM TUBE TOP SCH ×2 (08:56→21:00)
[2017-02-24] MEDS: POTASSIUM CHLORIDE 20 MEQ TAB.PRT.SR XX SCH ×2 (08:57→16:28)
[2017-02-24] MEDS: HYDROGEN PEROXIDE 3% 118 ML BOTTLE TP SCH ×2 (08:57→21:00)
[2017-02-24] MEDS: COD LIVER OIL/ZINC OXIDE OINT 113 GM TUBE TP SCH (08:57)
[2017-02-24] MEDS: VITAMINS A AND D OINT TP SCH (08:57)
[2017-02-24 11:34] VITALS: BP 98/50
[2017-02-24] MEDS: INSULIN REGULAR, HUMAN 300 UNIT/3 ML VIAL SQ PRN ×2 (12:23→17:05)
--- NOTE | 2017-02-24 20:12 | NUR ---
Received pt on HT-50 vent with the following settings of AC-12, Vt-450, PEEP+5, FIO2-35%, trached with Shiley#6 DCT trach, which is in the place and secure. No sob noted. Airway care done, pt responded to physical stimuli. HME and Sx Juarez changed. Resus. bag and back up trach at bedside. Vent and alarms on and audible.
[2017-02-24] MEDS: [UNRECOGNIZED DRUG - OTHER] GT SCH (21:00)
[2017-02-24] MEDS: CALCIUM CARBONATE 500 MG TAB.CHEW GT SCH (21:00)
[2017-02-24] MEDS: FISH OIL GT SCH (21:00)
[2017-02-24 22:31] VITALS: BP 114/66
[2017-02-25] MEDS: BACLOFEN 10 MG TABLET GT SCH ×4 (00:26→17:06)
[2017-02-25] MEDS: BLOOD SUGAR DIAGNOSTIC 1 EACH STRIP VI SCH ×4 (00:26→17:07)
[2017-02-25] MEDS: NUTRISOURCE FIBER 4 GM PACKET GT SCH ×3 (05:36→21:40)
[2017-02-25 08:04] VITALS: BP 108/60
[2017-02-25] MEDS: INSULIN DETEMIR 300 UNIT/3 ML CARTRIDGE SQ SCH ×2 (08:43→21:00)
[2017-02-25] MEDS: ACIDOPHILUS/BULGARICUS CHEW TAB GT SCH ×2 (08:53→20:36)
[2017-02-25] MEDS: FUROSEMIDE 40 MG/4 ML GT SCH (08:53)
[2017-02-25] MEDS: LEVETIRACETAM 500 MG/5 ML LIQUID UDC GT SCH ×2 (08:53→20:36)
[2017-02-25] MEDS: FAMOTIDINE 20 MG TABLET GT SCH ×2 (08:54→20:36)
[2017-02-25] MEDS: HYDROGEN PEROXIDE 3% 118 ML BOTTLE TP SCH ×2 (08:54→20:37)
[2017-02-25] MEDS: COD LIVER OIL/ZINC OXIDE OINT 113 GM TUBE TOP SCH ×2 (08:54→20:37)
[2017-02-25] MEDS: POTASSIUM CHLORIDE 20 MEQ TAB.PRT.SR XX SCH ×2 (08:54→16:36)
[2017-02-25] MEDS: COD LIVER OIL/ZINC OXIDE OINT 113 GM TUBE TP SCH (08:54)
[2017-02-25] MEDS: VITAMINS A AND D OINT TP SCH (08:54)
[2017-02-25] MEDS: PHENOBARBITAL GT SCH ×2 (08:54→20:36)
[2017-02-25] MEDS: [UNRECOGNIZED DRUG - OTHER] GT SCH (20:36)
[2017-02-25] MEDS: FISH OIL GT SCH (20:36)
[2017-02-25] MEDS: CALCIUM CARBONATE 500 MG TAB.CHEW GT SCH (20:37)
[2017-02-25 22:36] VITALS: BP 98/60
[2017-02-26] MEDS: NUTRISOURCE FIBER 4 GM PACKET GT SCH ×3 (06:13→21:40)
[2017-02-26] MEDS: BACLOFEN 10 MG TABLET GT SCH ×5 (06:13→23:06)
[2017-02-26] MEDS: BLOOD SUGAR DIAGNOSTIC 1 EACH STRIP VI SCH ×4 (06:16→17:34)
[2017-02-26 08:00] VITALS: BP 113/58
--- NOTE | 2017-02-26 08:45 | NUR ---
PT ON HT-50, SETTINGS AC12 450VT PEEP+5 35%FIO2. SHILEY 6DCT, TRACH CUFF INFLATED, NO LEAK PRESENT USING MINIMAL OCCLUDING TECH, TRACH IS IN PLACE, PATENT AND SECURED WITH TRACH TIES. NO S/S OF RESPIRATORY DISTRESS NOTED AT THIS TIME. PT SUCTIONED SM/MOD AMOUNT OF YELLOWISH THICK SECRETIONS. BVM AND BACK UP TRACH AT BEDSIDE. ALARMS AUDIBLE, CHECKED AND RESET. PPE USED. TRACH TUBE CHANGE FOR TODAY. WILL CONTINUE TO MONITOR AND REPORT ANY CHANGES.
[2017-02-26] MEDS: INSULIN DETEMIR 300 UNIT/3 ML CARTRIDGE SQ SCH ×2 (08:46→21:47)
[2017-02-26] MEDS: COD LIVER OIL/ZINC OXIDE OINT 113 GM TUBE TOP SCH ×2 (08:50→21:40)
[2017-02-26] MEDS: ACIDOPHILUS/BULGARICUS CHEW TAB GT SCH ×2 (08:50→21:39)
[2017-02-26] MEDS: FAMOTIDINE 20 MG TABLET GT SCH ×2 (08:50→21:39)
[2017-02-26] MEDS: LEVETIRACETAM 500 MG/5 ML LIQUID UDC GT SCH ×2 (08:50→21:39)
[2017-02-26] MEDS: PHENOBARBITAL GT SCH ×2 (08:50→21:39)
[2017-02-26] MEDS: FUROSEMIDE 40 MG/4 ML GT SCH (08:50)
[2017-02-26] MEDS: COD LIVER OIL/ZINC OXIDE OINT 113 GM TUBE TP SCH (08:50)
[2017-02-26] MEDS: POTASSIUM CHLORIDE 20 MEQ TAB.PRT.SR XX SCH ×2 (08:51→16:47)
[2017-02-26] MEDS: VITAMINS A AND D OINT TP SCH (08:51)
[2017-02-26] MEDS: HYDROGEN PEROXIDE 3% 118 ML BOTTLE TP SCH ×2 (08:51→21:40)
[2017-02-26] MEDS: INSULIN REGULAR, HUMAN 300 UNIT/3 ML VIAL SQ PRN ×2 (12:29→17:35)
[2017-02-26] MEDS: DIABETICSOURCE AC 1000ML LIQUID GT PRN (12:29)
[2017-02-26] MEDS: FISH OIL GT SCH (21:39)
[2017-02-26] MEDS: CALCIUM CARBONATE 500 MG TAB.CHEW GT SCH (21:39)
[2017-02-26] MEDS: [UNRECOGNIZED DRUG - OTHER] GT SCH (21:39)
[2017-02-27] MEDS: NUTRISOURCE FIBER 4 GM PACKET GT SCH ×3 (05:47→21:45)
[2017-02-27] MEDS: BLOOD SUGAR DIAGNOSTIC 1 EACH STRIP VI SCH ×4 (05:47→17:09)
[2017-02-27] MEDS: BACLOFEN 10 MG TABLET GT SCH ×3 (05:47→17:09)
--- NOTE | 2017-02-27 08:35 | NUR ---
Seen and examined by VALE Gomes. Notified PA of an increase in edema and one episode of hypotension of 88/52 at 0745 which was corrected with Trendelenburg positioning. Vitals at 0800 BP 105/ 59, Pulse 72. New orders given, noted and carried out. Will continue to monitor.
[2017-02-27 09:28] VITALS: BP 98/43
[2017-02-27] MEDS: FAMOTIDINE 20 MG TABLET GT SCH ×2 (09:30→21:42)
[2017-02-27] MEDS: COD LIVER OIL/ZINC OXIDE OINT 113 GM TUBE TOP SCH ×2 (09:30→21:44)
[2017-02-27] MEDS: ACIDOPHILUS/BULGARICUS CHEW TAB GT SCH ×2 (09:30→21:42)
[2017-02-27] MEDS: POTASSIUM CHLORIDE 20 MEQ TAB.PRT.SR XX SCH ×2 (09:30→17:09)
[2017-02-27] MEDS: FUROSEMIDE 40 MG/4 ML GT SCH (09:30)
[2017-02-27] MEDS: LEVETIRACETAM 500 MG/5 ML LIQUID UDC GT SCH ×2 (09:30→21:42)
[2017-02-27] MEDS: VITAMINS A AND D OINT TP SCH (09:30)
[2017-02-27] MEDS: INSULIN DETEMIR 300 UNIT/3 ML CARTRIDGE SQ SCH ×2 (09:30→21:44)
[2017-02-27] MEDS: COD LIVER OIL/ZINC OXIDE OINT 113 GM TUBE TP SCH (09:30)
[2017-02-27] MEDS: HYDROGEN PEROXIDE 3% 118 ML BOTTLE TP SCH ×2 (09:30→21:45)
[2017-02-27] MEDS: PHENOBARBITAL GT SCH ×2 (09:30→21:42)
[2017-02-27] MEDS: INSULIN REGULAR, HUMAN 300 UNIT/3 ML VIAL SQ PRN ×2 (12:45→17:09)
[2017-02-27 13:03] LABS: POTASSIUM 4.2 mmol/L (3.5-5.1)
[2017-02-27 14:16] LABS: BASOPHILS % (AUTO) 0.4 % (0.0-2.0); EOSINOPHILS # (AUTO) 0.2 K/uL (0.0-0.7); EOSINOPHILS % (AUTO) 5.5 % (0.0-7.0); LYMPHOCYTES # (AUTO) 1.1 K/UL (0.8-4.8); LYMPHOCYTES % (AUTO) 27.5 % (20.5-51.5); MEAN CORPUSCULAR HGB CONC 31 g/dL (32.0-37.0); MEAN CORPUSCULAR VOLUME 103.3 FL (81.0-99.0); MONOCYTES # (AUTO) 0.2 K/UL (0.1-1.30); MONOCYTES % (AUTO) 5.3 % (0.0-11.0); NEUTROPHILS # (AUTO) 2.4 K/UL (1.8-8.9); NEUTROPHILS % (AUTO) 61.3 % (38.5-71.5); WHITE BLOOD COUNT (AUTO) 3.9 K/UL (4.0-11.2)
[2017-02-27 14:30] LABS: RED BLOOD CELL COUNT(AUTO) 2.08 MIL/UL (4.2-5.4)
[2017-02-27 14:31] LABS: HEMATOCRIT 21.4 % (37-47); HEMOGLOBIN 6.6 G/DL (12.0-16.0); PLATELET COUNT (AUTO) 59 K/UL (150-450)
[2017-02-27 14:54] LABS: BAND % (MANUAL) 25 % (0-10); EOSINOPHILS % (MANUAL) 12 % (0-8); LYMPHOCYTES % (MANUAL) 25 % (20-40); MONOCYTES % (MANUAL) 3 % (2-10); NEUTROPHILS % (MANUAL) 35 % (42-75)
--- NOTE | 2017-02-27 15:20 | NUR ---
Received a call from the Lab. Reporting Critical hgb 6.6 and hct 21.4, plt count 59 and sodium 153[address] P[address] Dr. Jorgensen with new orders to transfuse 1 unit PRBCs today and other labs. Called responsible alliance party, Paolo Zhou for consent to transfuse blood with no response. Left message with a call back number. Called the second responsible alliance party, Phong Zhou. Who want to consult with his Dad, Paolo Zhou and call me back.
--- NOTE | 2017-02-27 16:12 | NUR ---
Second responsible libertarian, Phong Zhou, called back and consented to transfuse blood. Later, Paolo Zhou also called back and consented to the blood transfusion.
[2017-02-27 18:25] LABS: *OCCULT BLOOD STOOL POSITIVE (NEGATIVE)
--- NOTE | 2017-02-27 18:30 | NUR ---
RECEIVED ON VENT HT-50 WITH SETTINGS OF AC 12,VT 450, PEEP 5 AND FIO2 35%. STABLE WITH O2 SATURATION OF 99%. SUCTIONED FOR MODERATE AMOUNT OF THICK WHITISH SECRETIONS ORALLY AND FROM THE TRACH. CHANGED HUMIDIFIER FILTER.
[2017-02-27] MEDS: [UNRECOGNIZED DRUG - OTHER] GT SCH (21:42)
[2017-02-27] MEDS: FISH OIL GT SCH (21:42)
[2017-02-27] MEDS: CALCIUM CARBONATE 500 MG TAB.CHEW GT SCH (21:43)
[2017-02-27 22:49] VITALS: BP 91/56
--- NOTE | 2017-02-27 23:45 | NUR ---
transfusion started, 97.4,68,94/44,16,o2sat 100%,2400- 97.4,68,93/46,16, no adverse reaction observed, no respiratory distress noted.
[2017-02-28] MEDS: BACLOFEN 10 MG TABLET GT SCH ×4 (00:25→17:16)
[2017-02-28] MEDS: BLOOD SUGAR DIAGNOSTIC 1 EACH STRIP VI SCH ×4 (00:25→17:16)
--- NOTE | 2017-02-28 02:30 | NUR ---
transfusion finished, 95/53,97.4,66,16, no reaction noted, pt asleep.
[2017-02-28 02:58] LABS: BASOPHILS % (AUTO) 0.3 % (0.0-2.0); EOSINOPHILS # (AUTO) 0.2 K/uL (0.0-0.7); EOSINOPHILS % (AUTO) 3.9 % (0.0-7.0); HEMATOCRIT 25.9 % (37-47); HEMOGLOBIN 8.2 G/DL (12.0-16.0); LYMPHOCYTES # (AUTO) 0.9 K/UL (0.8-4.8); LYMPHOCYTES % (AUTO) 16.5 % (20.5-51.5); MEAN CORPUSCULAR HEMOGLOBIN 31.8 UUG (27.0-31.0); MEAN CORPUSCULAR HGB CONC 32 g/dL (32.0-37.0); MEAN CORPUSCULAR VOLUME 100.5 FL (81.0-99.0); MONOCYTES # (AUTO) 0.2 K/UL (0.1-1.30); MONOCYTES % (AUTO) 3.6 % (0.0-11.0); NEUTROPHILS # (AUTO) 4.2 K/UL (1.8-8.9); NEUTROPHILS % (AUTO) 75.7 % (38.5-71.5); PLATELET COUNT (AUTO) 59 K/UL (150-450); RED BLOOD CELL COUNT(AUTO) 2.58 MIL/UL (4.2-5.4); WHITE BLOOD COUNT (AUTO) 5.5 K/UL (4.0-11.2)
[2017-02-28 04:32] LABS: BAND % (MANUAL) 23 % (0-10); EOSINOPHILS % (MANUAL) 6 % (0-8); LYMPHOCYTES % (MANUAL) 17 % (20-40); MONOCYTES % (MANUAL) 2 % (2-10); NEUTROPHILS % (MANUAL) 52 % (42-75)
[2017-02-28] MEDS: NUTRISOURCE FIBER 4 GM PACKET GT SCH ×3 (05:44→21:40)
[2017-02-28 08:00] VITALS: BP 110/60
[2017-02-28] MEDS: PHENOBARBITAL GT SCH ×2 (09:31→21:35)
[2017-02-28] MEDS: FUROSEMIDE 40 MG/4 ML GT SCH (09:31)
[2017-02-28] MEDS: FAMOTIDINE 20 MG TABLET GT SCH ×2 (09:31→21:35)
[2017-02-28] MEDS: COD LIVER OIL/ZINC OXIDE OINT 113 GM TUBE TOP SCH ×2 (09:31→21:40)
[2017-02-28] MEDS: POTASSIUM CHLORIDE 20 MEQ TAB.PRT.SR XX SCH ×2 (09:31→17:16)
[2017-02-28] MEDS: ACIDOPHILUS/BULGARICUS CHEW TAB GT SCH ×2 (09:31→21:34)
[2017-02-28] MEDS: COD LIVER OIL/ZINC OXIDE OINT 113 GM TUBE TP SCH (09:31)
[2017-02-28] MEDS: LEVETIRACETAM 500 MG/5 ML LIQUID UDC GT SCH ×2 (09:31→21:34)
[2017-02-28] MEDS: INSULIN DETEMIR 300 UNIT/3 ML CARTRIDGE SQ SCH ×2 (09:31→21:40)
[2017-02-28] MEDS: VITAMINS A AND D OINT TP SCH (09:31)
[2017-02-28] MEDS: HYDROGEN PEROXIDE 3% 118 ML BOTTLE TP SCH ×2 (09:31→21:40)
[2017-02-28 10:39] LABS: BASOPHILS % (AUTO) 0.1 % (0.0-2.0); EOSINOPHILS # (AUTO) 0.2 K/uL (0.0-0.7); EOSINOPHILS % (AUTO) 3.7 % (0.0-7.0); HEMATOCRIT 26.4 % (37-47); HEMOGLOBIN 8.3 G/DL (12.0-16.0); LYMPHOCYTES # (AUTO) 1.2 K/UL (0.8-4.8); LYMPHOCYTES % (AUTO) 20.1 % (20.5-51.5); MEAN CORPUSCULAR HEMOGLOBIN 31.6 UUG (27.0-31.0); MEAN CORPUSCULAR HGB CONC 31 g/dL (32.0-37.0); MEAN CORPUSCULAR VOLUME 100.8 FL (81.0-99.0); MONOCYTES # (AUTO) 0.3 K/UL (0.1-1.30); MONOCYTES % (AUTO) 5.2 % (0.0-11.0); NEUTROPHILS # (AUTO) 4.4 K/UL (1.8-8.9); NEUTROPHILS % (AUTO) 70.9 % (38.5-71.5); PLATELET COUNT (AUTO) 62 K/UL (150-450); RED BLOOD CELL COUNT(AUTO) 2.62 MIL/UL (4.2-5.4); WHITE BLOOD COUNT (AUTO) 6.1 K/UL (4.0-11.2)
[2017-02-28 10:43] LABS: POTASSIUM 4.3 mmol/L (3.5-5.1)
[2017-02-28] MEDS: INSULIN REGULAR, HUMAN 300 UNIT/3 ML VIAL SQ PRN ×2 (11:49→17:17)
[2017-02-28 12:11] LABS: BAND % (MANUAL) 14 % (0-10); EOSINOPHILS % (MANUAL) 3 % (0-8); LYMPHOCYTES % (MANUAL) 18 % (20-40); NEUTROPHILS % (MANUAL) 65 % (42-75)
--- NOTE | 2017-02-28 12:30 | NUR ---
Seen by Kasey COLLAZO with no new order.
--- NOTE | 2017-02-28 12:45 | NUR ---
Dr. Pereyra notified of hematology consult, stated that will see patient later today.
--- NOTE | 2017-02-28 18:32 | NUR ---
Dr. Pereyra here, notified of patient's condition, labs ordered by in [facility]. Addendum: 02/28/17 at 1839 by THAD CARNEY RN stated that is considering ordering and endoscopy, spoke with father and stated that will think about it.
[2017-02-28 19:24] LABS: IRON, SERUM 57 ug/dL (50-175)
[2017-02-28 20:36] VITALS: BP 115/65
[2017-02-28 20:54] LABS: LACTATE DEHYDROGENASE 284 U/L (81-234)
--- NOTE | 2017-02-28 21:12 | NUR ---
PT ON CONT HT 50 VENT WITH SHILEY # [address] AND SECURED, WITH SAME CURRENT VENT SETTINGS, PT DOES ASSIST AT TIMES, GOOD COUGH EFFORT, SUCTION MOUTH WITH SUDHA, TOLL WELL, CHECK CUFF, CHANGE HME,ALL ALARMS OK AND WORKING WELL, NO VENT CHANGES MADE AT THIS TIME, PT STABLE. Andi CHAKRABORTYP Addendum: 02/28/17 at 2114 by ETHEL FERGUSON RT Amended: Links added.
[2017-02-28] MEDS: [UNRECOGNIZED DRUG - OTHER] GT SCH (21:35)
[2017-02-28] MEDS: FISH OIL GT SCH (21:35)
[2017-02-28] MEDS: CALCIUM CARBONATE 500 MG TAB.CHEW GT SCH (21:36)
[2017-03-01] MEDS: DIABETICSOURCE AC 1000ML LIQUID GT PRN (00:06)
[2017-03-01] MEDS: BLOOD SUGAR DIAGNOSTIC 1 EACH STRIP VI SCH ×5 (00:06→23:49)
[2017-03-01] MEDS: BACLOFEN 10 MG TABLET GT SCH ×5 (00:06→23:45)
[2017-03-01 02:34] LABS: *BILIRUBIN,URIN NEGATIVE (NEGATIVE); *BLOOD, URINE NEGATIVE (NEGATIVE); *CLARITY,URINE CLEAR (CLEAR); *COLOR,URINE YELLOW (YELLOW); *KETONES,URINE NEGATIVE (NEGATIVE); *PROTEIN,URINE 1+ (NEGATIVE); *UROBILINOGEN,URINE 0.2 E.U./dl (NORMAL); LEUKOCYTE ESTERASE ,URINE NEGATIVE (NEGATIVE); NITRITE, URINE NEGATIVE (NEGATIVE); PH,URINE 7.5 (5.0-8.0); UGLUCOSE NEGATIVE (NEGATIVE)
[2017-03-01 03:10] LABS: BACTERIA,URINE FEW /HPF (NONE SEEN); RBC,URINE 0-3 /HPF (0-3); SQUAMOUS EPITHELIAL CELL,UR MODERATE /HPF (NONE SEEN); WBC,URINE 0-3 /HPF (0-3)
[2017-03-01] MEDS: NUTRISOURCE FIBER 4 GM PACKET GT SCH ×3 (06:03→21:48)
[2017-03-01 08:00] VITALS: BP 110/58
[2017-03-01] MEDS: INSULIN DETEMIR 300 UNIT/3 ML CARTRIDGE SQ SCH ×2 (08:53→20:07)
[2017-03-01] MEDS: ACIDOPHILUS/BULGARICUS CHEW TAB GT SCH ×2 (08:55→20:06)
[2017-03-01] MEDS: LEVETIRACETAM 500 MG/5 ML LIQUID UDC GT SCH ×2 (08:56→20:06)
[2017-03-01] MEDS: FAMOTIDINE 20 MG TABLET GT SCH ×2 (08:57→20:07)
[2017-03-01] MEDS: FUROSEMIDE 40 MG/4 ML GT SCH (08:57)
[2017-03-01] MEDS: PHENOBARBITAL GT SCH ×2 (08:57→20:06)
[2017-03-01] MEDS: POTASSIUM CHLORIDE 20 MEQ TAB.PRT.SR XX SCH ×2 (08:58→17:45)
[2017-03-01] MEDS: HYDROGEN PEROXIDE 3% 118 ML BOTTLE TP SCH ×2 (08:58→20:08)
[2017-03-01] MEDS: COD LIVER OIL/ZINC OXIDE OINT 113 GM TUBE TOP SCH ×2 (08:58→20:07)
[2017-03-01] MEDS: COD LIVER OIL/ZINC OXIDE OINT 113 GM TUBE TP SCH (08:58)
[2017-03-01] MEDS: VITAMINS A AND D OINT TP SCH (08:58)
[2017-03-01] MEDS: INSULIN REGULAR, HUMAN 300 UNIT/3 ML VIAL SQ PRN ×2 (11:58→17:46)
--- NOTE | 2017-03-01 14:03 | NUR ---
Patient's father Mr. Zhou came by today to request assistance with completing patient's annual Redetermination For [facility] form. ESTEFANÍA assisted Mr. Zhou with this task. ESTEFANÍA mailed the original form to: [facility] office [address] [place] [address] Copy of the form was provided to Mr. Zhou. An additional copy of the form was filed in patient's file in SW office.
--- NOTE | 2017-03-01 14:05 | NUR ---
MR. RUIZ (PT'S FATHER ) WAS AWARE OF BURTON GERBER (MOLD CLOSER HELPER)SUGGESTION FOR ENDOSCOPY AND IN AGREEMENT .DR. GERBER WAS NOTIFIED AND STATED THAT SHE WILL CONTACT DR. BARNETT.
--- NOTE | 2017-03-01 15:36 | NUR ---
PT. WAS SEEN BY DR. BARNETT AND SPOKE TO PT'S BROTHER AZAM RE: FURTHER TX FOR ANEMIA LIKE G.I CONSULT FOR POSSIBLE ENDOSCOPY AND COLONOSCOPY MAYBE AND AZAM STATED THAT HE WILL TALK TO PT'S FATHER MR. RUIZ IN 1 HOUR DUE TO HE IS NOT AVAILABLE AT THIS TIME AND STATED THAT HE WILL CALL [facility] ABOUT IT. DR. BARNETT ORDERED CBC AND BMP AT THIS TIME AND ORDER CARRIED OUT.
--- NOTE | 2017-03-01 17:13 | NUR ---
MR. RUIZ CALLED BACK AND SPOKE TO DR. BARNETT AND WITH NEW ORDERS FOR G.I CONSULT AND DR. NESS WAS CALLED AND MESSAGE LEFT.
[2017-03-01] MEDS: [UNRECOGNIZED DRUG - OTHER] GT SCH (20:06)
[2017-03-01] MEDS: FISH OIL GT SCH (20:06)
[2017-03-01] MEDS: CALCIUM CARBONATE 500 MG TAB.CHEW GT SCH (20:07)
--- NOTE | 2017-03-01 20:58 | NUR ---
PT ON CONT HT 50 VENT WITH SHILEY # [address] AND SECURED, WITH SAME CURRENT VENT SETTINGS, PT DOES ASSIST AT TIMES, PIP 40-43CM APPROX, SUCTIONED LIGHT PALE YELL TINGE SECRETIONS WITH GOOD COUGH EFFORT, CHECK CUFF, CHANGE HME, ALL ALARMS OK, AMBU BAG AT BEDSIDE, NO VENT CHANGES MADE AT THIS TIME, . Andi CHAKRABORTYP Addendum: 03/01/17 at 2100 by ETHEL FERGUSON RT Amended: Links added.
[2017-03-02] MEDS: DIABETICSOURCE AC 1000ML LIQUID GT PRN (04:51)
[2017-03-02] MEDS: BACLOFEN 10 MG TABLET GT SCH ×3 (05:03→17:18)
[2017-03-02] MEDS: BLOOD SUGAR DIAGNOSTIC 1 EACH STRIP VI SCH ×3 (05:03→17:18)
[2017-03-02] MEDS: NUTRISOURCE FIBER 4 GM PACKET GT SCH ×3 (05:03→21:21)
[2017-03-02 06:32] LABS: BASOPHILS % (AUTO) 0.2 % (0.0-2.0); EOSINOPHILS # (AUTO) 0.2 K/uL (0.0-0.7); EOSINOPHILS % (AUTO) 3.9 % (0.0-7.0); HEMATOCRIT 26.6 % (37-47); HEMOGLOBIN 8.4 G/DL (12.0-16.0); LYMPHOCYTES # (AUTO) 2.3 K/UL (0.8-4.8); LYMPHOCYTES % (AUTO) 36.5 % (20.5-51.5); MEAN CORPUSCULAR HEMOGLOBIN 32.2 UUG (27.0-31.0); MEAN CORPUSCULAR HGB CONC 31 g/dL (32.0-37.0); MEAN CORPUSCULAR VOLUME 102.4 FL (81.0-99.0); MONOCYTES # (AUTO) 0.3 K/UL (0.1-1.30); NEUTROPHILS # (AUTO) 3.4 K/UL (1.8-8.9); NEUTROPHILS % (AUTO) 54.4 % (38.5-71.5); PLATELET COUNT (AUTO) 70 K/UL (150-450); WHITE BLOOD COUNT (AUTO) 6.2 K/UL (4.0-11.2)
[2017-03-02 06:51] LABS: CREATININE 1.1 mg/dL (0.6-1.3); POTASSIUM 4.1 mmol/L (3.5-5.1)
[2017-03-02 08:00] VITALS: BP 118/58
[2017-03-02 08:15] LABS: BAND % (MANUAL) 8 % (0-10); EOSINOPHILS % (MANUAL) 4 % (0-8); LYMPHOCYTES % (MANUAL) 37 % (20-40); MONOCYTES % (MANUAL) 9 % (2-10); NEUTROPHILS % (MANUAL) 42 % (42-75)
[2017-03-02] MEDS: ACIDOPHILUS/BULGARICUS CHEW TAB GT SCH ×2 (08:58→20:05)
[2017-03-02] MEDS: LEVETIRACETAM 500 MG/5 ML LIQUID UDC GT SCH ×2 (08:58→20:05)
[2017-03-02] MEDS: FUROSEMIDE 40 MG/4 ML GT SCH (08:59)
[2017-03-02] MEDS: FAMOTIDINE 20 MG TABLET GT SCH ×2 (09:01→20:05)
[2017-03-02] MEDS: PHENOBARBITAL GT SCH ×2 (09:01→20:05)
[2017-03-02] MEDS: INSULIN DETEMIR 300 UNIT/3 ML CARTRIDGE SQ SCH ×2 (09:02→21:21)
[2017-03-02] MEDS: COD LIVER OIL/ZINC OXIDE OINT 113 GM TUBE TOP SCH ×2 (09:02→20:05)
[2017-03-02] MEDS: HYDROGEN PEROXIDE 3% 118 ML BOTTLE TP SCH ×2 (09:02→20:05)
[2017-03-02] MEDS: COD LIVER OIL/ZINC OXIDE OINT 113 GM TUBE TP SCH (09:02)
[2017-03-02] MEDS: VITAMINS A AND D OINT TP SCH (09:03)
[2017-03-02] MEDS: POTASSIUM CHLORIDE 20 MEQ TAB.PRT.SR XX SCH ×2 (09:03→17:18)
--- NOTE | 2017-03-02 10:33 | NUR ---
RESIDENT REMAIN ON VENT HT-50 WITH SETTINGS OF AC 12,VT 450, PEEP 5 AND FIO2 35%. STABLE WITH O2 SATURATION OF 100% THIS MORNING. SUCTIONED FOR MODERATE AMOUNT OF THICK WHITISH SECRETIONS ORALLY AND FROM THE TRACH. CHANGED HUMIDIFIER FILTER.
[2017-03-02] MEDS: INSULIN REGULAR, HUMAN 300 UNIT/3 ML VIAL SQ PRN ×2 (12:16→17:18)
[2017-03-02] MEDS: FISH OIL GT SCH (20:05)
[2017-03-02] MEDS: CALCIUM CARBONATE 500 MG TAB.CHEW GT SCH (20:05)
[2017-03-02] MEDS: [UNRECOGNIZED DRUG - OTHER] GT SCH (20:05)
--- NOTE | 2017-03-02 20:05 | NUR ---
Pt received on Continuous mechanical ventilation via trach, in semi fowlers position and has limited response to verbal stimuli. Pt is on [place] HT-50 vent with ordered settings of A/C-12, VT-450, PEEP +5, FIO2-35%. Tolerating vent settings well. SpO2-96%. Sxn'd small amts of yellowish/white secretions. No signs or symptoms of respiratory distress noted. Trach is a [place]icrobeley 6 DCT. Minimal leak technique used to assess cuff inflation. Trach is patent and secure. No irritation or redness noted around stoma or trach tie. HME changed. PPE used. Vent alarm parameters checked, on and audible. Vent plugged into red emergency outlet. Bag/valve/mask and back up trach bedside. Will continue to monitor.
[2017-03-02 23:16] VITALS: BP 110/55
[2017-03-03 05:08] LABS: HAPTOGLOBIN 152 mg/dL (34-200)
[2017-03-03] MEDS: BLOOD SUGAR DIAGNOSTIC 1 EACH STRIP VI SCH ×4 (05:30→17:53)
[2017-03-03] MEDS: NUTRISOURCE FIBER 4 GM PACKET GT SCH ×3 (05:30→21:36)
[2017-03-03] MEDS: BACLOFEN 10 MG TABLET GT SCH ×4 (05:30→17:52)
[2017-03-03 07:48] VITALS: BP 102/50
[2017-03-03] MEDS: INSULIN DETEMIR 300 UNIT/3 ML CARTRIDGE SQ SCH ×2 (08:24→21:26)
[2017-03-03] MEDS: LEVETIRACETAM 500 MG/5 ML LIQUID UDC GT SCH ×2 (08:26→21:27)
[2017-03-03] MEDS: ACIDOPHILUS/BULGARICUS CHEW TAB GT SCH ×2 (08:26→21:27)
[2017-03-03] MEDS: COD LIVER OIL/ZINC OXIDE OINT 113 GM TUBE TP SCH (08:32)
[2017-03-03] MEDS: COD LIVER OIL/ZINC OXIDE OINT 113 GM TUBE TOP SCH ×2 (08:32→21:28)
[2017-03-03] MEDS: FAMOTIDINE 20 MG TABLET GT SCH ×2 (08:32→21:28)
[2017-03-03] MEDS: FUROSEMIDE 40 MG/4 ML GT SCH (08:32)
[2017-03-03] MEDS: VITAMINS A AND D OINT TP SCH (08:33)
[2017-03-03] MEDS: HYDROGEN PEROXIDE 3% 118 ML BOTTLE TP SCH ×2 (08:33→21:28)
[2017-03-03] MEDS: POTASSIUM CHLORIDE 20 MEQ TAB.PRT.SR XX SCH ×2 (08:33→17:52)
[2017-03-03] MEDS: PHENOBARBITAL GT SCH ×2 (09:00→21:28)
[2017-03-03] MEDS: DIABETICSOURCE AC 1000ML LIQUID GT PRN (13:05)
--- NOTE | 2017-03-03 13:45 | NUR ---
PT. WAS SEEN AND EXAMINED BY DR. NESS(G.I) AND WITH NEW ORDERS.PT'S FATHER MR. RUIZ WAS NOTIFIED AND HE REFUSED COLONOSCOPY,HE ONLY CONSENTS FOR ESOPHAGO GASTRO DUODENOSCOPY AND DR. NESS WAS NOTIFIED.
--- NOTE | 2017-03-03 14:00 | NUR ---
NEW ORDERS CLARIFIED FROM DR. NESS WERE CARRIED OUT,ONLY ESOPHAGO GASTRO DUODENOSCOPY WILL BE DONE ON SUNDAY AND MR. RUIZ GAVE TELEPHONE CONSENT TO 2 RN'S DUE TO HE WON'T BE ABLE TO COME AND SIGN CONSENT.
--- NOTE | 2017-03-03 17:30 | NUR ---
SEEN BY DANA VASQUEZ AND ROXIEO.
[2017-03-03] MEDS: INSULIN REGULAR, HUMAN 300 UNIT/3 ML VIAL SQ PRN (17:53)
[2017-03-03] MEDS: [UNRECOGNIZED DRUG - OTHER] GT SCH (21:27)
[2017-03-03] MEDS: FISH OIL GT SCH (21:27)
[2017-03-03] MEDS: CALCIUM CARBONATE 500 MG TAB.CHEW GT SCH (21:28)
[2017-03-03 22:46] VITALS: BP 107/68
[2017-03-04] MEDS: BACLOFEN 10 MG TABLET GT SCH ×4 (00:36→17:00)
[2017-03-04] MEDS: BLOOD SUGAR DIAGNOSTIC 1 EACH STRIP VI SCH ×4 (00:38→17:00)
[2017-03-04] MEDS: NUTRISOURCE FIBER 4 GM PACKET GT SCH ×3 (05:25→21:05)
[2017-03-04] MEDS: DIABETICSOURCE AC 1000ML LIQUID GT PRN (05:26)
[2017-03-04] MEDS: LEVETIRACETAM 500 MG/5 ML LIQUID UDC GT SCH ×2 (08:19→21:04)
[2017-03-04] MEDS: ACIDOPHILUS/BULGARICUS CHEW TAB GT SCH ×2 (08:19→21:04)
[2017-03-04] MEDS: FUROSEMIDE 40 MG/4 ML GT SCH (08:21)
[2017-03-04] MEDS: PHENOBARBITAL GT SCH ×2 (08:22→21:05)
[2017-03-04] MEDS: COD LIVER OIL/ZINC OXIDE OINT 113 GM TUBE TP SCH (08:22)
[2017-03-04] MEDS: COD LIVER OIL/ZINC OXIDE OINT 113 GM TUBE TOP SCH ×2 (08:22→21:05)
[2017-03-04] MEDS: FAMOTIDINE 20 MG TABLET GT SCH ×2 (08:22→21:05)
[2017-03-04] MEDS: VITAMINS A AND D OINT TP SCH (08:23)
[2017-03-04] MEDS: HYDROGEN PEROXIDE 3% 118 ML BOTTLE TP SCH ×2 (08:23→21:05)
[2017-03-04] MEDS: POTASSIUM CHLORIDE 20 MEQ TAB.PRT.SR XX SCH ×2 (08:23→17:00)
[2017-03-04] MEDS: INSULIN DETEMIR 300 UNIT/3 ML CARTRIDGE SQ SCH (08:24)
[2017-03-04 11:13] VITALS: BP 94/64
[2017-03-04] MEDS: INSULIN REGULAR, HUMAN 300 UNIT/3 ML VIAL SQ PRN ×2 (11:26→17:00)
--- NOTE | 2017-03-04 14:00 | NUR ---
DR. CRISTINA EXAMINED PT. AND AWARE OF EGD PROCEDURE ON SUNDAY AND WITH NNO.
--- NOTE | 2017-03-04 16:00 | NUR ---
NEW ORDER WAS CARRIED OUT FROM DR. GALEAS TO HOLD LEVEMIR WHILE ON NPO BEFORE EGD AND ORDER CARRIED OUT.
--- NOTE | 2017-03-04 20:15 | NUR ---
Pt received on Continuous mechanical ventilation via trach. Pt in semi fowlers position and has limited response to verbal stimuli. Pt is on [place] HT-50 vent with ordered settings of A/C-12, VT-450, PEEP +5, FIO2-35%. Tolerating vent settings well. SpO2-96%. Sxn'd small amts of yellowish/white secretions. No signs or symptoms of respiratory distress noted. Trach is a Shiley 6 DCT. Minimal leak technique used to assess cuff inflation. Trach is patent and secure. No irritation or redness noted around stoma or trach tie. HME changed. PPE used. Vent alarm parameters checked, on and audible. Vent plugged into red emergency outlet. Bag/valve/mask and back up trach bedside. Will continue to monitor.
[2017-03-04] MEDS ORDERED: INSULIN DETEMIR 300 UNIT/3 ML CARTRIDGE SQ SCH (21:00)
[2017-03-04] MEDS: [UNRECOGNIZED DRUG - OTHER] GT SCH (21:04)
[2017-03-04] MEDS: FISH OIL GT SCH (21:04)
[2017-03-04] MEDS: CALCIUM CARBONATE 500 MG TAB.CHEW GT SCH (21:05)
[2017-03-04 22:00] VITALS: BP 114/54
[2017-03-05] MEDS: BACLOFEN 10 MG TABLET GT SCH ×4 (00:39→17:01)
[2017-03-05] MEDS: BLOOD SUGAR DIAGNOSTIC 1 EACH STRIP VI SCH ×4 (00:39→17:01)
[2017-03-05] MEDS: NUTRISOURCE FIBER 4 GM PACKET GT SCH ×3 (05:49→21:13)
[2017-03-05 08:00] VITALS: BP 119/53
[2017-03-05] MEDS: ACIDOPHILUS/BULGARICUS CHEW TAB GT SCH ×2 (08:01→21:12)
[2017-03-05] MEDS: FUROSEMIDE 40 MG/4 ML GT SCH (08:07)
[2017-03-05] MEDS: PHENOBARBITAL GT SCH ×2 (08:07→21:13)
[2017-03-05] MEDS: FAMOTIDINE 20 MG TABLET GT SCH ×2 (08:07→21:13)
[2017-03-05] MEDS: LEVETIRACETAM 500 MG/5 ML LIQUID UDC GT SCH ×2 (08:12→21:12)
[2017-03-05] MEDS: COD LIVER OIL/ZINC OXIDE OINT 113 GM TUBE TP SCH (08:16)
[2017-03-05] MEDS: VITAMINS A AND D OINT TP SCH (08:16)
[2017-03-05] MEDS: INSULIN DETEMIR 300 UNIT/3 ML CARTRIDGE SQ SCH (08:16)
[2017-03-05] MEDS: POTASSIUM CHLORIDE 20 MEQ TAB.PRT.SR XX SCH ×2 (08:16→17:01)
[2017-03-05] MEDS: COD LIVER OIL/ZINC OXIDE OINT 113 GM TUBE TOP SCH ×2 (08:16→21:13)
[2017-03-05] MEDS: HYDROGEN PEROXIDE 3% 118 ML BOTTLE TP SCH ×2 (08:16→21:13)
[2017-03-05] MEDS: DIABETICSOURCE AC 1000ML LIQUID GT PRN (11:00)
[2017-03-05] MEDS: INSULIN REGULAR, HUMAN 300 UNIT/3 ML VIAL SQ PRN (17:01)
[2017-03-05] MEDS: CALCIUM CARBONATE 500 MG TAB.CHEW GT SCH (21:13)
[2017-03-05] MEDS: FISH OIL GT SCH (21:22)
[2017-03-05] MEDS: [UNRECOGNIZED DRUG - OTHER] GT SCH (21:22)
[2017-03-05 23:18] VITALS: BP 115/53
[2017-03-06] MEDS: BACLOFEN 10 MG TABLET GT SCH ×4 (00:17→17:40)
[2017-03-06] MEDS: BLOOD SUGAR DIAGNOSTIC 1 EACH STRIP VI SCH ×4 (00:24→17:43)
--- NOTE | 2017-03-06 05:00 | NUR ---
kept npo after midnight for egd this morning, blood sugar- 98, no s/s of hypoglycemia noted.
[2017-03-06] MEDS: NUTRISOURCE FIBER 4 GM PACKET GT SCH ×3 (05:11→22:15)
[2017-03-06 07:30] VITALS: BP 91/50
[2017-03-06 08:00] VITALS: BP 91/36
--- NOTE | 2017-03-06 08:05 | NUR ---
Pt received on Continuous mechanical ventilation via trach. Pt in semi fowlers position and has limited response to verbal stimuli. Pt is on [place] HT-50 vent with ordered settings of A/C-12, VT-450, PEEP +5, FIO2-35%. Tolerating vent settings well. SpO2-97%. Sxn'd small amts of yellowish/white secretions. No signs or symptoms of respiratory distress noted. Trach is a Shiley 6 DCT. Minimal leak technique used to assess cuff inflation. Trach is patent and secure. No irritation or redness noted around stoma or trach tie. HME changed. PPE used. Vent alarm parameters checked, on and audible. Vent plugged into red emergency outlet. Bag/valve/mask and back up trach bedside. Will continue to monitor.
--- NOTE | 2017-03-06 08:07 | NUR ---
Pt. was transfered to g.i lab for ged time out done with lise Abdalla,stable with v/s as follow:Temp 98.8f,h.r 75,rr12x',b/p 91/50,p/a 0/10,o2 sat 99%.
--- NOTE | 2017-03-06 09:39 | NUR ---
PT. WAS BACK FROM G.I LAB AND WITH ORDERS RESUMED V/S CJECKED (SEE RECORD)
[2017-03-06] MEDS: LEVETIRACETAM 500 MG/5 ML LIQUID UDC GT SCH ×2 (09:40→21:13)
[2017-03-06] MEDS: PHENOBARBITAL GT SCH ×2 (09:40→21:13)
[2017-03-06] MEDS: FUROSEMIDE 40 MG/4 ML GT SCH (09:40)
[2017-03-06] MEDS: ACIDOPHILUS/BULGARICUS CHEW TAB GT SCH ×2 (09:40→21:12)
[2017-03-06] MEDS: FAMOTIDINE 20 MG TABLET GT SCH ×2 (09:40→21:14)
[2017-03-06] MEDS: COD LIVER OIL/ZINC OXIDE OINT 113 GM TUBE TP SCH (09:40)
[2017-03-06] MEDS: COD LIVER OIL/ZINC OXIDE OINT 113 GM TUBE TOP SCH ×2 (09:40→21:14)
[2017-03-06] MEDS: POTASSIUM CHLORIDE 20 MEQ TAB.PRT.SR XX SCH ×2 (09:41→17:40)
[2017-03-06] MEDS: HYDROGEN PEROXIDE 3% 118 ML BOTTLE TP SCH ×2 (09:41→21:14)
[2017-03-06] MEDS: VITAMINS A AND D OINT TP SCH (09:41)
[2017-03-06 09:44] VITALS: BP 111/50
--- NOTE | 2017-03-06 11:00 | NUR ---
NEW ORDER WAS CARRIED OUT FROM DR. NESS.
[2017-03-06 11:12] LABS: *HEMOGLOBIN A 98.1 % (94.0-98.0); *HEMOGLOBIN A2 1.9 % (0.7-3.1)
[2017-03-06] MEDS: CLINDAMYCIN HCL 150 MG CAPSULE GT SCH ×2 (14:22→21:28)
--- NOTE | 2017-03-06 15:23 | NUR ---
Patient seen by orientor Dr. Hopkins on 03/03/2017. See podiatry notes in chart for details.
--- NOTE | 2017-03-06 16:43 | NUR ---
Per patient's father's request, SW faxed an order to [employer] ([phone]) in order to purchase 2 blankets, 3 bottles of body lotion, and 3 deodorants for the patient.
[2017-03-06] MEDS: DIABETICSOURCE AC 1000ML LIQUID GT PRN (17:57)
--- NOTE | 2017-03-06 18:55 | NUR ---
SEEN BY DR. VICK FULLER.
--- NOTE | 2017-03-06 20:56 | NUR ---
PT ON CONT HT 50 VENT WITH SHILEY # [address] AND SECURED, WITH SAME CURRENT VENT SETTINGS, WITH GOOD COUGH EFFORT, PT DOES ASSIST AT TIMES, SUCTIONED VERY LIGHT PALE YELL TINGE SECRETIONS, CHECK CUFF, CHANGE HME, NO VENT CHANGES MADE AT THIS TIME, ALL ALARMS OK, AMBU BAG AT BEDSIDE, NO VENT CHANGES MADE AT THIS TIME.Andi FERGUSON RCP Addendum: 03/06/17 at 2057 by ETHEL FERGUSON RT Amended: Links added.
--- NOTE | 2017-03-06 21:00 | NUR ---
CALLED BACK FOR CLARIFICATION OF ORDER CLINDAMYCIN 150 MG VIA GT Q 8 HRS FOR 5 DAYS.MD WILL SEE PT TOMORROW.
[2017-03-06] MEDS: [UNRECOGNIZED DRUG - OTHER] GT SCH (21:13)
[2017-03-06] MEDS: FISH OIL GT SCH (21:13)
[2017-03-06] MEDS: CALCIUM CARBONATE 500 MG TAB.CHEW GT SCH (21:14)
[2017-03-06] MEDS: INSULIN DETEMIR 300 UNIT/3 ML CARTRIDGE SQ SCH (21:20)
[2017-03-06 23:01] VITALS: BP 98/41
[2017-03-07] VITALS (7 sets, daily range): BP systolic 108–125; BP diastolic 54–67
[2017-03-07] MEDS: BACLOFEN 10 MG TABLET GT SCH ×5 (00:11→23:18)
[2017-03-07] MEDS: BLOOD SUGAR DIAGNOSTIC 1 EACH STRIP VI SCH ×5 (00:11→23:18)
[2017-03-07] MEDS: CLINDAMYCIN HCL 150 MG CAPSULE GT SCH ×3 (05:15→21:30)
[2017-03-07] MEDS: NUTRISOURCE FIBER 4 GM PACKET GT SCH ×3 (05:15→21:30)
[2017-03-07] MEDS: FUROSEMIDE 40 MG/4 ML GT SCH (08:03)
[2017-03-07] MEDS: ACIDOPHILUS/BULGARICUS CHEW TAB GT SCH ×2 (08:03→20:35)
[2017-03-07] MEDS: FAMOTIDINE 20 MG TABLET GT SCH ×2 (08:03→20:36)
[2017-03-07] MEDS: LEVETIRACETAM 500 MG/5 ML LIQUID UDC GT SCH ×2 (08:03→20:35)
[2017-03-07] MEDS: PHENOBARBITAL GT SCH ×2 (08:03→20:35)
[2017-03-07] MEDS: VITAMINS A AND D OINT TP SCH (08:05)
[2017-03-07] MEDS: POTASSIUM CHLORIDE 20 MEQ TAB.PRT.SR XX SCH ×2 (08:05→17:08)
[2017-03-07] MEDS: COD LIVER OIL/ZINC OXIDE OINT 113 GM TUBE TOP SCH ×2 (08:05→20:36)
[2017-03-07] MEDS: HYDROGEN PEROXIDE 3% 118 ML BOTTLE TP SCH ×2 (08:05→20:36)
[2017-03-07] MEDS: COD LIVER OIL/ZINC OXIDE OINT 113 GM TUBE TP SCH (08:05)
[2017-03-07] MEDS: INSULIN DETEMIR 300 UNIT/3 ML CARTRIDGE SQ SCH ×2 (08:05→20:37)
--- NOTE | 2017-03-07 08:30 | NUR ---
DR. NESS WAS PAGED AND MESSAGE LEFT RE:PT. HAVING GASTRIC RESIDUALS MORE THAN 200ML AND TEMP 102F.
--- NOTE | 2017-03-07 09:30 | NUR ---
DR. BARNETT AND HARSH PICKARD WERE PAGED TOO RE FEVER 102F.
--- NOTE | 2017-03-07 09:30 | NUR ---
DR. NESS CALLED BACK AND ASKED CH. NURSE TO F/U WITH PRIMARY DOCTORS THE PT'S CONDITION AND STATED THAT HE RE ARRANGE GT FEEDING WHEN HE DID THE EGD AND NOW IS IN STOMACH AND CAN BE USED FOR FEEDING.
--- NOTE | 2017-03-07 09:45 | NUR ---
DR. BARNETT CALLED BACK AND WAS NOTIFIED RE:PT'S CONDITION AND ALSO HARSH YEN AT THIS TIME AND BOTH WITH NEW ORDERS CARRIED OUT.
--- NOTE | 2017-03-07 10:40 | NUR ---
DR. ROBERTSON WAS CALLED FOR CONSULTATION AND MESSAGE LEFT.
[2017-03-07 11:29] LABS: *BILIRUBIN,URIN NEGATIVE (NEGATIVE); *BLOOD, URINE Trace-intact (NEGATIVE); *CLARITY,URINE SLIGHTLY CLOUDY (CLEAR); *COLOR,URINE YELLOW (YELLOW); *KETONES,URINE NEGATIVE (NEGATIVE); *PROTEIN,URINE TRACE (NEGATIVE); *UROBILINOGEN,URINE 0.2 E.U./dl (NORMAL); LEUKOCYTE ESTERASE ,URINE 3+ (NEGATIVE); NITRITE, URINE NEGATIVE (NEGATIVE); UGLUCOSE NEGATIVE (NEGATIVE)
[2017-03-07 11:34] LABS: BACTERIA,URINE MODERATE /HPF (NONE SEEN); RBC,URINE 0-3 /HPF (0-3); SQUAMOUS EPITHELIAL CELL,UR FEW /HPF (NONE SEEN); WBC,URINE TNTC /HPF (0-3)
[2017-03-07] MEDS: INSULIN REGULAR, HUMAN 300 UNIT/3 ML VIAL SQ PRN ×3 (12:08→23:20)
[2017-03-07] MEDS: ACETAMINOPHEN 650 MG/20 ML UDC- FOR SA ONLY GT PRN ×2 (12:09→18:10)
[2017-03-07 12:42] LABS: BILIRUBIN,TOTAL 0.4 mg/dL (0.2-1.0); CREATININE 1.2 mg/dL (0.6-1.3); POTASSIUM 4.2 mmol/L (3.5-5.1); TOTAL PROTEIN, SERUM 9.1 g/dL (6.4-8.2)
[2017-03-07 13:37] LABS: BASOPHILS # (AUTO) 0.1 K/uL (0.0-8.0); EOSINOPHILS # (AUTO) 0.2 K/uL (0.0-0.7); MONOCYTES # (AUTO) 0.3 K/UL (0.1-1.30); MONOCYTES % (AUTO) 4.8 % (0.0-11.0); WHITE BLOOD COUNT (AUTO) 6.2 K/UL (4.0-11.2)
[2017-03-07 13:40] LABS: BASOPHILS % (AUTO) 0.9 % (0.0-2.0); EOSINOPHILS % (AUTO) 3.4 % (0.0-7.0); LYMPHOCYTES # (AUTO) 1.7 K/UL (0.8-4.8); LYMPHOCYTES % (AUTO) 27.5 % (20.5-51.5); MEAN CORPUSCULAR HEMOGLOBIN 30.4 UUG (27.0-31.0); MEAN CORPUSCULAR HGB CONC 30 g/dL (32.0-37.0); MEAN CORPUSCULAR VOLUME 101.6 FL (81.0-99.0); NEUTROPHILS # (AUTO) 3.9 K/UL (1.8-8.9); NEUTROPHILS % (AUTO) 63.4 % (38.5-71.5); PLATELET COUNT (AUTO) 134 K/UL (150-450)
[2017-03-07 13:45] LABS: HEMATOCRIT 22.9 % (37-47); HEMOGLOBIN 6.9 G/DL (12.0-16.0); RED BLOOD CELL COUNT(AUTO) 2.26 MIL/UL (4.2-5.4)
--- NOTE | 2017-03-07 13:50 | NUR ---
Dr. Jorgensen was paged and message left re;abnormal lab results with hgb 6.9 and gastrostomy tube in place in stomach.
[2017-03-07 14:24] LABS: BAND % (MANUAL) 29 % (0-10); EOSINOPHILS % (MANUAL) 3 % (0-8); LYMPHOCYTES % (MANUAL) 30 % (20-40); MONOCYTES % (MANUAL) 5 % (2-10); NEUTROPHILS % (MANUAL) 33 % (42-75)
--- NOTE | 2017-03-07 14:43 | NUR ---
DR. BARNETT CALLED BACK AND WITH NEW ORDERS CARRIED OUT,AND AWARE OF N.P FOR DR. ROBERTSON(I.D) IS HERE AND THAT SHE IS ASSESSING PT.
[2017-03-07] MEDS ORDERED: IMIPENEM/CILASTATIN SODIUM 500 MG in IV NORMAL SALINE 100 ML IV SCH (15:30)
--- NOTE | 2017-03-07 15:30 | NUR ---
MR CARIDAD RUIZ GAVE CONSENT BY PHONE TO 2 NURSES FOR TRANSFUSION OF PACKED RED BLOOD CELLS AND PT. WAS SEEN BY Ant MYLES COVERING FOR DR. ROBERTSON AND ORDERS CARRIED OUT.
[2017-03-07] MEDS ORDERED: IMIPENEM IV SCH (15:53)
[2017-03-07] MEDS ORDERED: NORMAL SALINE IV SCH (15:53)
[2017-03-07] MEDS ORDERED: CILASTATIN SODIUM IV SCH (15:53)
--- NOTE | 2017-03-07 16:20 | NUR ---
PT. WAS EXAMINED BY Ant ALVA (COVERING FOR DR. ROBERTSON) AND WITH NEW ORDERS CARRIED OUT,MR RUIZ IN AGREEMENT.
--- NOTE | 2017-03-07 16:20 | NUR ---
ORDER FOR IMIPENEM FROM [facility] WAS CHANGED AND CLARIFIED RECOMMENDED BY [facility] PHARMACIST RITO AND CARRIED OUT ,ALSO VALARIE ( OMNICAHAYDEN ) SPOKE TO Ant .
--- NOTE | 2017-03-07 16:53 | NUR ---
DR. BARNETT WAS NOTIFIED RE:CXR RESULT AND SODIUM 159 AND WITH NEW ORDERS CARRIED OUT.
[2017-03-07] MEDS: DIABETICSOURCE AC 1000ML LIQUID GT PRN (17:08)
[2017-03-07] MEDS: NORMAL SALINE IV SCH (18:59)
[2017-03-07] MEDS: CILASTATIN SODIUM IV SCH (18:59)
[2017-03-07] MEDS: IMIPENEM IV SCH (18:59)
[2017-03-07] MEDS: [UNRECOGNIZED DRUG - OTHER] GT SCH (20:35)
[2017-03-07] MEDS: FISH OIL GT SCH (20:35)
[2017-03-07] MEDS: CALCIUM CARBONATE 500 MG TAB.CHEW GT SCH (20:36)
--- NOTE | 2017-03-07 21:00 | NUR ---
Vital signs: B/P 110/58 T: 98.7 RR:12 MA: 79 02sat: 98%, Started Blood transfusion, no signs of any distress at this time, IV site on right forearm intact and no signs of infiltration, will continue monitor.
--- NOTE | 2017-03-07 21:54 | NUR ---
2115 Patient is afebrile, no signs of any blood transfusion reactions noted, B/P: 108/52 T:98.2 RR:12 HR: 79 02sat 98%, no signs of any respiratory distress , turned and repositioned, kept clean and comfortable.
--- NOTE | 2017-03-07 23:30 | NUR ---
Blood transfusion completed at this time, no adverse reactions noted , afebrile, no signs of any distress, on Imipenem IV for UTI, no adverse reactions noted, on clindamycin via gt for Gt cellulitis, no adverse reactions noted, around gt site noted with redness, no residual from gt noted, no drainage noted from gt site, kept clean and comfortable.
--- NOTE | 2017-03-08 03:00 | NUR ---
COUNTER HAND reported that patient have no urine output, B/P 138/78 RR: 18 WV:92 T: 98.9 02sat 98%. Obtained order for bladder scan order from Dr. Smith Jorgesnen. Bladder scan done and noted with 910 ml residual, straight cath and noted with 450 ml, PVR done and noted with 400 ml residual, no signs of any distress noted, afebrile, will continue monitor.
--- NOTE | 2017-03-08 04:00 | NUR ---
Spoke with [facility] Pharmacist and clarification of Imipenem order done to give Imepenem 250 mg IVPB every 6 hours X 3 days total for UTI.
[2017-03-08] MEDS: NUTRISOURCE FIBER 4 GM PACKET GT SCH ×3 (05:03→21:51)
[2017-03-08] MEDS: CLINDAMYCIN HCL 150 MG CAPSULE GT SCH ×3 (05:03→21:51)
[2017-03-08] MEDS: BACLOFEN 10 MG TABLET GT SCH ×3 (05:03→17:14)
[2017-03-08] MEDS: BLOOD SUGAR DIAGNOSTIC 1 EACH STRIP VI SCH ×3 (05:04→17:14)
[2017-03-08] MEDS: NORMAL SALINE IV SCH ×6 (05:34→23:33)
[2017-03-08] MEDS: CILASTATIN SODIUM IV SCH ×6 (05:34→23:33)
[2017-03-08] MEDS: IMIPENEM IV SCH ×6 (05:34→23:33)
[2017-03-08 06:00] VITALS: BP 118/59
--- NOTE | 2017-03-08 06:00 | NUR ---
Bladder scan done and noted with 702 ml residual , straight cath and obtained 150 ml, patient is afebrile, no signs of any distress noted, still with generalized edema and very distended abdomen, gt residual was 50 ml,no nausea /vomiting noted, HOB elevated, on aspiration precaution, kept clean and comfortable.
[2017-03-08 06:52] LABS: CREATININE 1.1 mg/dL (0.6-1.3); POTASSIUM 4.3 mmol/L (3.5-5.1)
--- NOTE | 2017-03-08 07:40 | NUR ---
Seen by Dr. Jorgensen, new orders given and carried out.
[2017-03-08 08:00] VITALS: BP 112/62
[2017-03-08] MEDS: ACIDOPHILUS/BULGARICUS CHEW TAB GT SCH ×2 (08:25→20:08)
[2017-03-08] MEDS: FAMOTIDINE 20 MG TABLET GT SCH ×2 (08:25→20:10)
[2017-03-08] MEDS: PHENOBARBITAL GT SCH ×2 (08:25→20:10)
[2017-03-08] MEDS: HYDROGEN PEROXIDE 3% 118 ML BOTTLE TP SCH ×2 (08:25→20:11)
[2017-03-08] MEDS: VITAMINS A AND D OINT TP SCH (08:25)
[2017-03-08] MEDS: INSULIN DETEMIR 300 UNIT/3 ML CARTRIDGE SQ SCH ×2 (08:25→20:20)
[2017-03-08] MEDS: COD LIVER OIL/ZINC OXIDE OINT 113 GM TUBE TOP SCH ×2 (08:25→20:11)
[2017-03-08] MEDS: LEVETIRACETAM 500 MG/5 ML LIQUID UDC GT SCH ×2 (08:25→20:08)
[2017-03-08] MEDS: COD LIVER OIL/ZINC OXIDE OINT 113 GM TUBE TP SCH (08:25)
[2017-03-08] MEDS: POTASSIUM CHLORIDE 20 MEQ TAB.PRT.SR XX SCH ×2 (08:26→17:14)
[2017-03-08] MEDS: FUROSEMIDE 40 MG/4 ML VIAL IVP SCH (09:01)
--- NOTE | 2017-03-08 11:00 | NUR ---
Pvr resulted 700 ml, f/c fr [id number] inserted without difficulty, abdomen distended, continue monitoring, kept clean and dry.
[2017-03-08] MEDS: INSULIN REGULAR, HUMAN 300 UNIT/3 ML VIAL SQ PRN ×2 (11:52→17:15)
[2017-03-08] MEDS: HYDROCODONE/APAP 5-325MG TABLET GT PRN (17:56)
[2017-03-08] MEDS: [UNRECOGNIZED DRUG - OTHER] GT SCH (20:10)
[2017-03-08] MEDS: FISH OIL GT SCH (20:10)
[2017-03-08] MEDS: CALCIUM CARBONATE 500 MG TAB.CHEW GT SCH (20:10)
--- NOTE | 2017-03-08 20:19 | NUR ---
Received pt awake, on HT-50 vent with the following settings of AC-12, Vt-450, PEEP+5, FIO2-35%, trached with Shiley#6 DCT trach, which is in the place and secure. No distress noted. Airway care done, pt responded to physical stimuli(noticed blood in the sputum. Charge nurse Duarte notified). HME changed. Resus. bag and back up trach at bedside. Vent and alarms checked and reset.
[2017-03-08 20:40] VITALS: BP 136/66
[2017-03-08] MEDS: DIABETICSOURCE AC 1000ML LIQUID GT PRN (22:22)
--- NOTE | 2017-03-08 22:56 | NUR ---
PATIENT SEEN BY DR CECILLE ROBERTSON MD LOOK AT THE PATIENT ABDOMINAL WOUND CLOSED TO GT SITE, NOTED WITH DRAINAGE OF SEROSANGUINEOUS IN SMALL AMOUNT, WITH ORDER TO CULTURE THE SITE, SPECIMEN SENT ORDERED.
[2017-03-09] MEDS: BACLOFEN 10 MG TABLET GT SCH ×4 (00:47→17:16)
[2017-03-09] MEDS: BLOOD SUGAR DIAGNOSTIC 1 EACH STRIP VI SCH ×4 (00:48→17:33)
[2017-03-09] MEDS: NORMAL SALINE IV SCH ×3 (05:27→18:02)
[2017-03-09] MEDS: IMIPENEM IV SCH ×3 (05:27→18:02)
[2017-03-09] MEDS: CILASTATIN SODIUM IV SCH ×3 (05:27→18:02)
[2017-03-09] MEDS: CLINDAMYCIN HCL 150 MG CAPSULE GT SCH ×3 (05:32→22:19)
[2017-03-09] MEDS: NUTRISOURCE FIBER 4 GM PACKET GT SCH ×3 (05:32→22:19)
[2017-03-09 07:27] LABS: BASOPHILS # (AUTO) 0.1 K/uL (0.0-8.0); EOSINOPHILS # (AUTO) 0.2 K/uL (0.0-0.7); EOSINOPHILS % (AUTO) 3.2 % (0.0-7.0); HEMATOCRIT 27.6 % (37-47); HEMOGLOBIN 8.4 G/DL (12.0-16.0); LYMPHOCYTES # (AUTO) 1.4 K/UL (0.8-4.8); LYMPHOCYTES % (AUTO) 26.5 % (20.5-51.5); MEAN CORPUSCULAR HGB CONC 30 g/dL (32.0-37.0); MONOCYTES # (AUTO) 0.4 K/UL (0.1-1.30); MONOCYTES % (AUTO) 6.9 % (0.0-11.0); NEUTROPHILS # (AUTO) 3.3 K/UL (1.8-8.9); NEUTROPHILS % (AUTO) 62.4 % (38.5-71.5); PLATELET COUNT (AUTO) 157 K/UL (150-450); RED BLOOD CELL COUNT(AUTO) 2.79 MIL/UL (4.2-5.4); WHITE BLOOD COUNT (AUTO) 5.4 K/UL (4.0-11.2)
[2017-03-09 07:42] LABS: BILIRUBIN,TOTAL 0.4 mg/dL (0.2-1.0); CREATININE 1.1 mg/dL (0.6-1.3); MAGNESIUM 2.9 mg/dL (1.8-2.4); PHOSPHOROUS 2.6 mg/dL (2.5-4.9); TOTAL PROTEIN, SERUM 9.1 g/dL (6.4-8.2)
[2017-03-09] MEDS: FUROSEMIDE 40 MG/4 ML VIAL IVP SCH (08:17)
--- NOTE | 2017-03-09 08:30 | NUR ---
PT ON HT-50 VENT, SETTINGS ARE AC 12, Vt 450, +5, 35% FIO2. SHILEY 6 TRACH IS PATENT AND SECURED WITH TIES. PT TOLERATING VENT SETTINGS FAIRLY WELL. SUCTIONED MODERATE AMOUNTS OF YELLOW THICK SECRETIONS. HME CHANGED, BVM AND BACK UP TRACH AT BEDSIDE. ALARMS ARE ON AND AUDIBLE, WILL CONTINUE TO MONITOR.
[2017-03-09] MEDS: ACIDOPHILUS/BULGARICUS CHEW TAB GT SCH ×2 (08:36→20:10)
[2017-03-09] MEDS: LEVETIRACETAM 500 MG/5 ML LIQUID UDC GT SCH ×2 (08:36→20:10)
[2017-03-09] MEDS: HYDROGEN PEROXIDE 3% 118 ML BOTTLE TP SCH ×2 (08:37→20:13)
[2017-03-09] MEDS: FAMOTIDINE 20 MG TABLET GT SCH ×2 (08:37→20:11)
[2017-03-09] MEDS: VITAMINS A AND D OINT TP SCH (08:37)
[2017-03-09] MEDS: COD LIVER OIL/ZINC OXIDE OINT 113 GM TUBE TP SCH (08:37)
[2017-03-09] MEDS: DIABETICSOURCE AC 1000ML LIQUID GT PRN (08:37)
[2017-03-09] MEDS: COD LIVER OIL/ZINC OXIDE OINT 113 GM TUBE TOP SCH ×2 (08:37→20:13)
[2017-03-09] MEDS: POTASSIUM CHLORIDE 20 MEQ TAB.PRT.SR XX SCH ×2 (08:37→17:16)
[2017-03-09] MEDS: PHENOBARBITAL GT SCH ×2 (08:37→20:11)
--- NOTE | 2017-03-09 09:00 | NUR ---
Dr. Mckeon paged regarding critical labs value, Na 159.
[2017-03-09] MEDS: INSULIN DETEMIR 300 UNIT/3 ML CARTRIDGE SQ SCH ×2 (09:19→21:23)
--- NOTE | 2017-03-09 11:34 | NUR ---
Spoke with Dr. Mckeon, notified of Na level 159, new orders given to increase gtube water flushes to 250ml q 4 hrs.
[2017-03-09] MEDS: INSULIN REGULAR, HUMAN 300 UNIT/3 ML VIAL SQ PRN (11:36)
[2017-03-09 11:52] VITALS: BP 121/56
--- NOTE | 2017-03-09 18:06 | NUR ---
Notice light hematuria from f/c, Dr. Jorgensen notified of patient's condition Hg 8.4, Na 159, no new orders given at this time, continue monitoring, cbc and bmp in am.
[2017-03-09] MEDS: ACETAMINOPHEN 650 MG/20 ML UDC- FOR SA ONLY GT PRN (20:00)
[2017-03-09] MEDS: FISH OIL GT SCH (20:11)
[2017-03-09] MEDS: [UNRECOGNIZED DRUG - OTHER] GT SCH (20:11)
[2017-03-09] MEDS: CALCIUM CARBONATE 500 MG TAB.CHEW GT SCH (20:11)
[2017-03-09 20:44] VITALS: BP 102/58
--- NOTE | 2017-03-09 20:58 | NUR ---
PT ON CONT HT 50 VENT WITH SHILEY # [address] AND SECURED, WITH SAME CURRENT VENT SETTINGS, PT DOES ASSIST AT TIMES, ALYSIA GOOD COUGH EFFORT, SUCTIONED LIGHT PALE YELL TINGE SECRETIONS, WITH NO VENT CHANGES MADE AT THIS TIME, CHECK CUFF, CHANGE HME, ALL ALARMS OK, AMBU BAG AT BEDSIDE, PT STABLE AT THIS TIME.Andi CHAKRABORTYP Addendum: 03/09/17 at 2058 by ETHEL FERGUSON RT Amended: Links added.
--- NOTE | 2017-03-09 22:50 | NUR ---
Remains on clindamycin gt for Gt cellulitis, and Imipenem IV for UTI, no adverse reactions noted, temp:99.1 fluids given as ordered, no drainage or discharge noted from gt site, Abdomen is very distended , + bowel sounds noted on all four quadrants, f/c draining well to yellow urine, good catheter care and smitha care rendered, kept clean and comfortable.
[2017-03-10] MEDS: DIABETICSOURCE AC 1000ML LIQUID GT PRN ×2 (04:00→08:59)
[2017-03-10] MEDS: HYDROCODONE/APAP 5-325MG TABLET GT PRN ×2 (04:01→21:35)
[2017-03-10] MEDS: NORMAL SALINE IV SCH ×4 (05:23→12:19)
[2017-03-10] MEDS: IMIPENEM IV SCH ×4 (05:23→12:19)
[2017-03-10] MEDS: CILASTATIN SODIUM IV SCH ×4 (05:23→12:19)
[2017-03-10] MEDS: NUTRISOURCE FIBER 4 GM PACKET GT SCH ×3 (05:39→21:36)
[2017-03-10] MEDS: CLINDAMYCIN HCL 150 MG CAPSULE GT SCH ×3 (05:39→21:36)
[2017-03-10] MEDS: BACLOFEN 10 MG TABLET GT SCH ×4 (05:39→17:10)
[2017-03-10] MEDS: BLOOD SUGAR DIAGNOSTIC 1 EACH STRIP VI SCH ×4 (05:40→17:33)
--- NOTE | 2017-03-10 07:08 | NUR ---
Resident was received on mechanical ventilation with ordered vent settings of AC 12 VT 450 PEEP 5 FIO2 35% No signs of respiratory distress noted at this time.Trach is secure and patent. She is trached with a shiley #6 DCT. SUPERVISING FILM OR VIDEOTAPE EDITOR used for cuff inflation. HME was changed without complications. Alarm parameters on/audible. Spare trach at bedside. Will continue to monitor
[2017-03-10 07:43] LABS: BASOPHILS % (AUTO) 0.7 % (0.0-2.0); EOSINOPHILS # (AUTO) 0.3 K/uL (0.0-0.7); EOSINOPHILS % (AUTO) 4.8 % (0.0-7.0); HEMATOCRIT 28.1 % (37-47); HEMOGLOBIN 8.5 G/DL (12.0-16.0); LYMPHOCYTES # (AUTO) 1.9 K/UL (0.8-4.8); LYMPHOCYTES % (AUTO) 32.7 % (20.5-51.5); MEAN CORPUSCULAR HEMOGLOBIN 30.2 UUG (27.0-31.0); MEAN CORPUSCULAR HGB CONC 30 g/dL (32.0-37.0); MEAN CORPUSCULAR VOLUME 99.4 FL (81.0-99.0); MONOCYTES # (AUTO) 0.4 K/UL (0.1-1.30); MONOCYTES % (AUTO) 7.5 % (0.0-11.0); NEUTROPHILS # (AUTO) 3.2 K/UL (1.8-8.9); NEUTROPHILS % (AUTO) 54.3 % (38.5-71.5); PLATELET COUNT (AUTO) 176 K/UL (150-450); RED BLOOD CELL COUNT(AUTO) 2.83 MIL/UL (4.2-5.4); WHITE BLOOD COUNT (AUTO) 5.8 K/UL (4.0-11.2)
[2017-03-10 07:54] LABS: CREATININE 1.1 mg/dL (0.6-1.3); POTASSIUM 3.8 mmol/L (3.5-5.1)
[2017-03-10 08:02] VITALS: BP 108/61
[2017-03-10] MEDS: LEVETIRACETAM 500 MG/5 ML LIQUID UDC GT SCH ×2 (08:55→20:05)
[2017-03-10] MEDS: PHENOBARBITAL GT SCH ×2 (08:55→20:06)
[2017-03-10] MEDS: ACIDOPHILUS/BULGARICUS CHEW TAB GT SCH ×2 (08:55→20:05)
[2017-03-10] MEDS: FAMOTIDINE 20 MG TABLET GT SCH ×2 (08:56→20:06)
[2017-03-10] MEDS: COD LIVER OIL/ZINC OXIDE OINT 113 GM TUBE TP SCH (08:58)
[2017-03-10] MEDS: HYDROGEN PEROXIDE 3% 118 ML BOTTLE TP SCH ×2 (08:58→20:06)
[2017-03-10] MEDS: COD LIVER OIL/ZINC OXIDE OINT 113 GM TUBE TOP SCH ×2 (08:58→20:06)
[2017-03-10] MEDS: VITAMINS A AND D OINT TP SCH (08:58)
[2017-03-10] MEDS: POTASSIUM CHLORIDE 20 MEQ TAB.PRT.SR XX SCH ×2 (08:58→17:10)
[2017-03-10] MEDS: FUROSEMIDE 40 MG/4 ML VIAL IVP SCH (09:00)
[2017-03-10] MEDS: INSULIN DETEMIR 300 UNIT/3 ML CARTRIDGE SQ SCH ×2 (09:13→21:22)
[2017-03-10] MEDS: [UNRECOGNIZED DRUG - OTHER] GT SCH (20:06)
[2017-03-10] MEDS: CALCIUM CARBONATE 500 MG TAB.CHEW GT SCH (20:06)
[2017-03-10] MEDS: FISH OIL GT SCH (20:06)
[2017-03-10 20:20] VITALS: BP 112/61
--- NOTE | 2017-03-10 21:08 | NUR ---
PT ON CONT HT 50 VENT WITH SHILEY # [address] AND SECURED, WITH SAME CURRENT VENT SETTINGS; PT DOES ASSIST AT TIMES, WITH GOOD COUGH EFFORT, SUCTIONED LIGHT PALE YELL TINGE SECRETIONS, CHECK CUFF, CHANGE HME AND PASCUAL, NO VENT CHANGES MADE AT THIS TIME, ALL ALARMS OK, AMBU BAG AT BEDSIDE, PT STABLE, PIP 39-43 CM APPROX. Andi CHAKRABORTYP Addendum: 03/10/17 at 2109 by ETHEL FERGUSON RT Amended: Links added.
--- NOTE | 2017-03-10 23:55 | NUR ---
S/p IV antibiotic for UTI, no adverse reactions noted, on clindamycin for gt cellulitis, no adverse reactions noted, abdomen is very distended but noted with + bowel sounds on all four quadrants, no residuals noted. f/c draining well to yellow urine output, good smitha care rendered, kept clean and comfortable.
[2017-03-11] MEDS: BLOOD SUGAR DIAGNOSTIC 1 EACH STRIP VI SCH ×4 (00:47→17:34)
[2017-03-11] MEDS: BACLOFEN 10 MG TABLET GT SCH ×5 (00:47→23:52)
[2017-03-11] MEDS: CLINDAMYCIN HCL 150 MG CAPSULE GT SCH (05:37)
[2017-03-11] MEDS: NUTRISOURCE FIBER 4 GM PACKET GT SCH ×3 (05:37→22:04)
[2017-03-11] MEDS: DIABETICSOURCE AC 1000ML LIQUID GT PRN (05:38)
[2017-03-11 08:03] VITALS: BP 112/72
[2017-03-11] MEDS: ACIDOPHILUS/BULGARICUS CHEW TAB GT SCH ×2 (08:51→20:15)
[2017-03-11] MEDS: LEVETIRACETAM 500 MG/5 ML LIQUID UDC GT SCH ×2 (08:52→20:15)
[2017-03-11] MEDS: PHENOBARBITAL GT SCH ×2 (08:53→20:16)
[2017-03-11] MEDS: FAMOTIDINE 20 MG TABLET GT SCH ×2 (08:53→20:16)
[2017-03-11] MEDS: FUROSEMIDE 40 MG/4 ML GT SCH ×2 (08:53→20:15)
[2017-03-11] MEDS: INSULIN DETEMIR 300 UNIT/3 ML CARTRIDGE SQ SCH ×2 (08:55→20:20)
[2017-03-11] MEDS: POTASSIUM CHLORIDE 20 MEQ TAB.PRT.SR XX SCH ×2 (08:57→17:34)
[2017-03-11] MEDS: COD LIVER OIL/ZINC OXIDE OINT 113 GM TUBE TOP SCH ×2 (08:57→20:21)
[2017-03-11] MEDS: VITAMINS A AND D OINT TP SCH (08:57)
[2017-03-11] MEDS: COD LIVER OIL/ZINC OXIDE OINT 113 GM TUBE TP SCH (08:57)
[2017-03-11] MEDS: HYDROGEN PEROXIDE 3% 118 ML BOTTLE TP SCH ×2 (08:57→20:21)
[2017-03-11] MEDS: INSULIN REGULAR, HUMAN 300 UNIT/3 ML VIAL SQ PRN ×2 (11:50→17:35)
[2017-03-11] MEDS: [UNRECOGNIZED DRUG - OTHER] GT SCH (20:15)
[2017-03-11] MEDS: FISH OIL GT SCH (20:15)
--- NOTE | 2017-03-11 20:15 | NUR ---
PT ON CONT HT 50 VENT WITH SHILEY # [address] AND SECURED, WITH SAME CURRENT VENT SETTINGS, PT DOES ASSIST AT TIMES, WITH GOOD COUGH EFFORT, SUCTION MOUTH WITH SUDHA COLLINS WELL, CHECK CUFF, CHANGE HME, SUCTIONED LIGHT PALE YELL TINGE SECRETIONS, NO VENT CHANGES MADE AT THIS TIME, ALL ALARMS OK, AMBU BAG AT BEDSIDE, PT STABLE, PIP 38-42 CM APPROX. Andi FERGUSON RCP Addendum: 03/11/17 at 2017 by ETHEL FERGUSON RT Amended: Links added.
[2017-03-11] MEDS: CALCIUM CARBONATE 500 MG TAB.CHEW GT SCH (20:16)
[2017-03-11] MEDS: HYDROCODONE/APAP 5-325MG TABLET GT PRN (21:57)
[2017-03-11 22:16] VITALS: BP 105/105
--- NOTE | 2017-03-11 23:45 | NUR ---
S/p antibiotic theraphy , no adverse reactions noted abdomen still distended but noted with + bowel sound on all four quadrants,no discharge or drainage from gt site, good GT care done . [place] catheter is intact and draining well to yellow urine, good catheter done, kept clean and comfortable.
[2017-03-12] MEDS: BLOOD SUGAR DIAGNOSTIC 1 EACH STRIP VI SCH ×4 (00:09→17:25)
[2017-03-12] MEDS: INSULIN REGULAR, HUMAN 300 UNIT/3 ML VIAL SQ PRN ×3 (00:12→17:28)
[2017-03-12] MEDS: NUTRISOURCE FIBER 4 GM PACKET GT SCH ×3 (05:39→21:38)
[2017-03-12] MEDS: BACLOFEN 10 MG TABLET GT SCH ×3 (05:39→17:19)
[2017-03-12 08:00] VITALS: BP 118/65
[2017-03-12] MEDS: LEVETIRACETAM 500 MG/5 ML LIQUID UDC GT SCH ×2 (08:20→20:29)
[2017-03-12] MEDS: FAMOTIDINE 20 MG TABLET GT SCH ×2 (08:20→20:29)
[2017-03-12] MEDS: ACIDOPHILUS/BULGARICUS CHEW TAB GT SCH ×2 (08:20→20:29)
[2017-03-12] MEDS: PHENOBARBITAL GT SCH ×2 (08:20→20:29)
[2017-03-12] MEDS: FUROSEMIDE 40 MG/4 ML GT SCH ×2 (08:20→20:29)
[2017-03-12] MEDS: HYDROGEN PEROXIDE 3% 118 ML BOTTLE TP SCH ×2 (08:21→20:30)
[2017-03-12] MEDS: COD LIVER OIL/ZINC OXIDE OINT 113 GM TUBE TP SCH (08:21)
[2017-03-12] MEDS: COD LIVER OIL/ZINC OXIDE OINT 113 GM TUBE TOP SCH ×2 (08:21→20:30)
[2017-03-12] MEDS: INSULIN DETEMIR 300 UNIT/3 ML CARTRIDGE SQ SCH ×2 (08:21→20:30)
[2017-03-12] MEDS: VITAMINS A AND D OINT TP SCH (08:21)
[2017-03-12] MEDS: POTASSIUM CHLORIDE 20 MEQ TAB.PRT.SR XX SCH ×2 (08:21→17:19)
[2017-03-12] MEDS: DIABETICSOURCE AC 1000ML LIQUID GT PRN (15:20)
--- NOTE | 2017-03-12 20:20 | NUR ---
Received pt awake, on HT-50 vent with the following settings of AC-12, Vt-450, PEEP+5, FIO2-35%, trached with Shiley#6 DCT trach, which is in the place and secure. No s/s of respiratory distress noted. Airway care done, pt responded to physical stimuli. HME changed. Resus. bag and back up trach at bedside. Vent and alarms on and audible.
[2017-03-12] MEDS: [UNRECOGNIZED DRUG - OTHER] GT SCH (20:29)
[2017-03-12] MEDS: CALCIUM CARBONATE 500 MG TAB.CHEW GT SCH (20:29)
[2017-03-12] MEDS: FISH OIL GT SCH (20:29)
[2017-03-12 22:35] VITALS: BP 102/50
[2017-03-13] MEDS: BLOOD SUGAR DIAGNOSTIC 1 EACH STRIP VI SCH ×4 (00:40→17:22)
[2017-03-13] MEDS: BACLOFEN 10 MG TABLET GT SCH ×4 (00:40→17:10)
[2017-03-13] MEDS: [UNRECOGNIZED DRUG - OTHER] GT SCH (01:00)
[2017-03-13] MEDS: FISH OIL GT SCH (01:00)
[2017-03-13] MEDS: NUTRISOURCE FIBER 4 GM PACKET GT SCH ×3 (05:42→21:53)
[2017-03-13 06:43] LABS: BASOPHILS # (AUTO) 0.1 K/uL (0.0-8.0); BASOPHILS % (AUTO) 1.2 % (0.0-2.0); EOSINOPHILS # (AUTO) 0.3 K/uL (0.0-0.7); EOSINOPHILS % (AUTO) 4.6 % (0.0-7.0); HEMATOCRIT 24.4 % (37-47); HEMOGLOBIN 7.8 G/DL (12.0-16.0); LYMPHOCYTES # (AUTO) 1.7 K/UL (0.8-4.8); LYMPHOCYTES % (AUTO) 28.9 % (20.5-51.5); MEAN CORPUSCULAR HEMOGLOBIN 31.3 UUG (27.0-31.0); MEAN CORPUSCULAR HGB CONC 32 g/dL (32.0-37.0); MEAN CORPUSCULAR VOLUME 98.4 FL (81.0-99.0); MONOCYTES # (AUTO) 0.4 K/UL (0.1-1.30); MONOCYTES % (AUTO) 6.5 % (0.0-11.0); NEUTROPHILS # (AUTO) 3.4 K/UL (1.8-8.9); NEUTROPHILS % (AUTO) 58.8 % (38.5-71.5); PLATELET COUNT (AUTO) 224 K/UL (150-450); WHITE BLOOD COUNT (AUTO) 5.9 K/UL (4.0-11.2)
[2017-03-13 06:53] LABS: BILIRUBIN,TOTAL 0.4 mg/dL (0.2-1.0); MAGNESIUM 2.4 mg/dL (1.8-2.4); PHOSPHOROUS 2.4 mg/dL (2.5-4.9); POTASSIUM 3.9 mmol/L (3.5-5.1); TOTAL PROTEIN, SERUM 8.8 g/dL (6.4-8.2)
[2017-03-13 07:16] LABS: RED BLOOD CELL COUNT(AUTO) 2.48 MIL/UL (4.2-5.4)
[2017-03-13 08:00] VITALS: BP 97/49
[2017-03-13] MEDS: INSULIN DETEMIR 300 UNIT/3 ML CARTRIDGE SQ SCH ×2 (08:27→21:59)
[2017-03-13] MEDS: LEVETIRACETAM 500 MG/5 ML LIQUID UDC GT SCH ×2 (08:52→21:50)
[2017-03-13] MEDS: ACIDOPHILUS/BULGARICUS CHEW TAB GT SCH ×2 (08:52→21:49)
[2017-03-13] MEDS: FUROSEMIDE 40 MG/4 ML GT SCH ×2 (08:53→21:58)
[2017-03-13] MEDS: COD LIVER OIL/ZINC OXIDE OINT 113 GM TUBE TOP SCH ×2 (08:53→21:53)
[2017-03-13] MEDS: VITAMINS A AND D OINT TP SCH (08:53)
[2017-03-13] MEDS: FAMOTIDINE 20 MG TABLET GT SCH ×2 (08:53→21:53)
[2017-03-13] MEDS: HYDROGEN PEROXIDE 3% 118 ML BOTTLE TP SCH ×2 (08:53→21:53)
[2017-03-13] MEDS: POTASSIUM CHLORIDE 20 MEQ TAB.PRT.SR XX SCH ×2 (08:53→17:10)
[2017-03-13] MEDS: COD LIVER OIL/ZINC OXIDE OINT 113 GM TUBE TP SCH (08:53)
[2017-03-13] MEDS: PHENOBARBITAL GT SCH ×2 (08:53→22:00)
--- NOTE | 2017-03-13 09:52 | NUR ---
DR. GALEAS WAS NOTIFIED ABOUT LAB RESULTS AND WITH NEW ORDERS CARRIED OUT.
--- NOTE | 2017-03-13 11:19 | NUR ---
Pharmacy Review for upcoming 03/25 IDT Meeting -VS: TEMP 99.4 HR 81 BP 102/50 -LABS: (From 03/10) WBC 5.8H/H 8.5/28.1PLT 176 NA 152K 3.8CL 114CO2 35BUN/SCR 31/1.1 BS 77 -MEDICATION USE REVIEWED: > Pt is not on any anti-psych medication > On Phenobarbital 50mg BID, last level 20.7 (15-39) on 12/13. No seizure activity in February. >On Keppra 750mg BID, Calculated CrCl 52.12 ml/min, last level was 43.8 (10-40) (06/16/16), renal function appropriate for dose No seizure activity in February. >On Kcl 40meq am and 20 meq pm, K=3.8 in February. > Pt insulin regimen: now on levemir 62 units HS, levemir 32 units AM + a custom sliding scale of regular insulin + 8units of regular insulin in addition. BS in Feb ranged 80-193. > PRN MED USAGE: (February) Tylenol 650mg mild-mod pain none used Tylenol 650mg for temp none used [place] 5/325mg for mod-severe pain (-) none used -NEW ORDERS NOTED: > EGD done 03/06 for anemia, 1 unit PRBC transfused 02/27 > Primaxin 03/07-03/10 for UTI > Clindamycin 150mg q8hr 03/06-03/11 for GT cellulitis > Furosemide 40mg q12hr added 03/11 > Artificial Tears d/c'd 02/13 per Rx recommendation d/t lack of use Will continue to monitor, no further recommendations at this time. Addendum: 03/20/17 at 1243 by ZENAIDA CONNOLLY ADM Update from today 03/20/17 IDT Meeting: > Pt was reviewed and discussed in detail, including recent abx courses for GT cellulitis and UTI > No acute medication issues or concerns at this time, will continue to monitor
[2017-03-13] MEDS: DIABETICSOURCE AC 1000ML LIQUID GT PRN (13:58)
--- NOTE | 2017-03-13 15:10 | NUR ---
NEW ORDER WAS CARRIED OUT TO [facility]OC[facility]
[2017-03-13] MEDS ORDERED: NEUTRA PHOS PACKET GT ONE (15:15)
--- NOTE | 2017-03-13 16:00 | NUR ---
SEEN BY DR. VICK FULLER.
[2017-03-13] MEDS: INSULIN REGULAR, HUMAN 300 UNIT/3 ML VIAL SQ PRN (17:23)
[2017-03-13 20:55] VITALS: BP 94/55
[2017-03-13] MEDS: CALCIUM CARBONATE 500 MG TAB.CHEW GT SCH (21:54)
[2017-03-14] MEDS: BLOOD SUGAR DIAGNOSTIC 1 EACH STRIP VI SCH ×4 (00:30→17:24)
[2017-03-14] MEDS: BACLOFEN 10 MG TABLET GT SCH ×4 (00:30→17:24)
[2017-03-14] MEDS: INSULIN REGULAR, HUMAN 300 UNIT/3 ML VIAL SQ PRN ×2 (01:37→05:06)
[2017-03-14] MEDS: NUTRISOURCE FIBER 4 GM PACKET GT SCH ×3 (05:02→21:44)
[2017-03-14 08:00] VITALS: BP 100/51
[2017-03-14] MEDS: LEVETIRACETAM 500 MG/5 ML LIQUID UDC GT SCH ×2 (08:26→21:39)
[2017-03-14] MEDS: ACIDOPHILUS/BULGARICUS CHEW TAB GT SCH ×2 (08:26→21:39)
[2017-03-14] MEDS: FUROSEMIDE 40 MG/4 ML GT SCH ×2 (08:27→21:41)
[2017-03-14] MEDS: COD LIVER OIL/ZINC OXIDE OINT 113 GM TUBE TP SCH (08:28)
[2017-03-14] MEDS: COD LIVER OIL/ZINC OXIDE OINT 113 GM TUBE TOP SCH ×2 (08:28→21:43)
[2017-03-14] MEDS: FAMOTIDINE 20 MG TABLET GT SCH ×2 (08:28→21:42)
[2017-03-14] MEDS: PHENOBARBITAL GT SCH ×2 (08:28→21:42)
[2017-03-14] MEDS: HYDROGEN PEROXIDE 3% 118 ML BOTTLE TP SCH ×2 (08:28→21:44)
[2017-03-14] MEDS: VITAMINS A AND D OINT TP SCH (08:29)
[2017-03-14] MEDS: POTASSIUM CHLORIDE 20 MEQ TAB.PRT.SR XX SCH ×2 (08:29→17:23)
[2017-03-14] MEDS: INSULIN DETEMIR 300 UNIT/3 ML CARTRIDGE SQ SCH ×2 (08:31→21:43)
--- NOTE | 2017-03-14 09:09 | NUR ---
Seen by Dr. Seth, labs ordered for tomorrow by in [facility].
[2017-03-14] MEDS: DIABETICSOURCE AC 1000ML LIQUID GT PRN (14:25)
[2017-03-14 20:18] VITALS: BP 108/50
--- NOTE | 2017-03-14 21:13 | NUR ---
PT ON CONT HT 50 VENT WITH SHILEY # [address] AND SECURED, WITH SAME CURRENT VENT SETTINGS, PT DOES ASSIST AT TIMES, CHECK CUFF, CHANGE HME, SUCTIONED LIGHT PALE YELL TINGE SECRETIONS, WITH GOOD COUGH EFFORT, ALL ALARMS OK, AMBU BAG AT BEDSIDE, NO VENT CHANGES MADE AT THIS TIME, PIP 39-44CM APPROX. Andi CHAKRABORTYP Addendum: 03/14/17 at 2115 by ETHEL FERGUSON RT Amended: Links added.
[2017-03-14] MEDS: [UNRECOGNIZED DRUG - OTHER] GT SCH (21:40)
[2017-03-14] MEDS: FISH OIL GT SCH (21:40)
[2017-03-14] MEDS: CALCIUM CARBONATE 500 MG TAB.CHEW GT SCH (21:42)
[2017-03-15] MEDS: BACLOFEN 10 MG TABLET GT SCH ×5 (00:05→23:04)
[2017-03-15] MEDS: BLOOD SUGAR DIAGNOSTIC 1 EACH STRIP VI SCH ×5 (00:05→23:04)
[2017-03-15] MEDS: INSULIN REGULAR, HUMAN 300 UNIT/3 ML VIAL SQ PRN ×4 (00:06→23:05)
[2017-03-15] MEDS: NUTRISOURCE FIBER 4 GM PACKET GT SCH ×3 (05:50→21:43)
[2017-03-15 08:00] VITALS: BP 109/60
[2017-03-15 08:00] LABS: BASOPHILS # (AUTO) 0.1 K/uL (0.0-8.0); BASOPHILS % (AUTO) 0.9 % (0.0-2.0); EOSINOPHILS # (AUTO) 0.3 K/uL (0.0-0.7); EOSINOPHILS % (AUTO) 3.5 % (0.0-7.0); HEMATOCRIT 25.9 % (37-47); HEMOGLOBIN 7.9 G/DL (12.0-16.0); LYMPHOCYTES # (AUTO) 1.5 K/UL (0.8-4.8); LYMPHOCYTES % (AUTO) 19.6 % (20.5-51.5); MEAN CORPUSCULAR HGB CONC 31 g/dL (32.0-37.0); MONOCYTES # (AUTO) 0.4 K/UL (0.1-1.30); MONOCYTES % (AUTO) 5.4 % (0.0-11.0); NEUTROPHILS # (AUTO) 5.1 K/UL (1.8-8.9); NEUTROPHILS % (AUTO) 70.6 % (38.5-71.5); PLATELET COUNT (AUTO) 264 K/UL (150-450); RED BLOOD CELL COUNT(AUTO) 2.64 MIL/UL (4.2-5.4)
--- NOTE | 2017-03-15 08:00 | NUR ---
Pt received on Continuous mechanical ventilation via trach. Pt in semi fowlers position and has limited response to verbal stimuli. Pt is on Taurus HT-50 vent with ordered settings of A/C-12, VT-450, PEEP +5, FIO2-35%. Tolerating vent settings well. SpO2-100%. Sxn'd small amts of yellow secretions. No signs or symptoms of respiratory distress noted. Trach is a Shiley 6 DCT. Minimal leak technique used to assess cuff inflation. Trach is patent and secure. No irritation or redness noted around stoma or trach tie. HME changed. PPE used. Vent alarm parameters checked, on and audible. Vent plugged into red emergency outlet. Bag/valve/mask and back up trach bedside. Will continue to monitor.
[2017-03-15 08:05] LABS: WHITE BLOOD COUNT (AUTO) 7.4 K/UL (4.0-11.2)
[2017-03-15 08:27] LABS: BILIRUBIN,TOTAL 0.5 mg/dL (0.2-1.0); MAGNESIUM 2.5 mg/dL (1.8-2.4); PHOSPHOROUS 2.5 mg/dL (2.5-4.9); POTASSIUM 3.8 mmol/L (3.5-5.1); TOTAL PROTEIN, SERUM 8.7 g/dL (6.4-8.2)
[2017-03-15] MEDS: ACIDOPHILUS/BULGARICUS CHEW TAB GT SCH ×2 (08:58→21:38)
[2017-03-15] MEDS: FUROSEMIDE 40 MG/4 ML GT SCH ×2 (09:00→21:39)
[2017-03-15] MEDS: LEVETIRACETAM 500 MG/5 ML LIQUID UDC GT SCH ×2 (09:00→21:38)
[2017-03-15] MEDS: POTASSIUM CHLORIDE 20 MEQ TAB.PRT.SR XX SCH ×2 (09:01→17:59)
[2017-03-15] MEDS: COD LIVER OIL/ZINC OXIDE OINT 113 GM TUBE TP SCH (09:01)
[2017-03-15] MEDS: VITAMINS A AND D OINT TP SCH (09:01)
[2017-03-15] MEDS: FAMOTIDINE 20 MG TABLET GT SCH ×2 (09:01→21:41)
[2017-03-15] MEDS: COD LIVER OIL/ZINC OXIDE OINT 113 GM TUBE TOP SCH ×2 (09:01→21:43)
[2017-03-15] MEDS: PHENOBARBITAL GT SCH ×2 (09:01→21:41)
[2017-03-15] MEDS: HYDROGEN PEROXIDE 3% 118 ML BOTTLE TP SCH ×2 (09:01→21:43)
[2017-03-15] MEDS: INSULIN DETEMIR 300 UNIT/3 ML CARTRIDGE SQ SCH ×2 (09:04→21:41)
--- NOTE | 2017-03-15 13:42 | NUR ---
SEEN BY HARSH Mcgarry AND DENISE FAUSTINO.
--- NOTE | 2017-03-15 14:59 | NUR ---
DR. IBETH BAUGH WAS CALLED AND MESSAGE LEFT FOR F/U HGB 7.9 TODAY.
--- NOTE | 2017-03-15 19:15 | NUR ---
matteo ball n.p. was in, no new orders.
[2017-03-15 20:22] VITALS: BP 112/50
--- NOTE | 2017-03-15 21:01 | NUR ---
PT ON CONT HT 50 VENT WITH SHILEY # [address] AND SECURED, WITH SAME CURRENT VENT SETTINGS, PT DOES ASSIST AT TIMES, GOOD COUGH EFFORT, SUCTIONED LIGHT PALE YELL TINGE SECRETIONS, WITH NO VENT CHANGES MADE AT THIS TIME, ALL ALARMS OK, AMBU BAG AT BEDSIDE, NO SOB NOTED, CHECK CUFF, CHANGE HME, PT STABLE AT THIS TIME, PIP 39-43CM APPROX. Andi FERGUSON RCP Addendum: 03/15/17 at 2102 by ETHEL FERGUSON RT Amended: Links added.
[2017-03-15] MEDS: FISH OIL GT SCH (21:39)
[2017-03-15] MEDS: [UNRECOGNIZED DRUG - OTHER] GT SCH (21:39)
[2017-03-15] MEDS: CALCIUM CARBONATE 500 MG TAB.CHEW GT SCH (21:41)
[2017-03-16] MEDS: DIABETICSOURCE AC 1000ML LIQUID GT PRN (00:30)
[2017-03-16] MEDS: BACLOFEN 10 MG TABLET GT SCH ×3 (06:02→17:28)
[2017-03-16] MEDS: BLOOD SUGAR DIAGNOSTIC 1 EACH STRIP VI SCH ×3 (06:02→17:28)
[2017-03-16] MEDS: NUTRISOURCE FIBER 4 GM PACKET GT SCH ×3 (06:02→21:22)
[2017-03-16 07:59] LABS: BILIRUBIN,TOTAL 0.4 mg/dL (0.2-1.0); CREATININE 0.8 mg/dL (0.6-1.3); PHOSPHOROUS 2.4 mg/dL (2.5-4.9); TOTAL PROTEIN, SERUM 8.6 g/dL (6.4-8.2)
[2017-03-16 08:00] VITALS: BP 107/56
[2017-03-16 08:08] LABS: MAGNESIUM 2.4 mg/dL (1.8-2.4)
--- NOTE | 2017-03-16 08:23 | NUR ---
RECEIVED PT ON HT-50 VENT WITH CURRENT SETTINGS OF AC 12, VT 450, PEEP +5, FIO2 35%. PT APPEARS TO BE COMFORTABLE AT THIS TIME. NO S/S OF RESPIRATORY DISTRESS OBSERVED. NO CHANGES MADE ON VENT. VENT ALARMS CHECKED, ARE ON AND FUNCTIONING PROPERLY. TRACH IS PATENT AND SECURED WITH FOAM TRACH TIES. SUCTIONED SMALL AMOUNT OF THICK, PALE SECRETIONS. HME CHANGED NEEDED. BVM AND BACK UP TRACH ARE AT BEDSIDE. VENT IS PLUGGED INTO RED EMERGENCY OUTLET. WILL CONTINUE TO MONITOR PT THROUGHOUT SHIFT.
[2017-03-16 09:25] LABS: BASOPHILS % (AUTO) 0.6 % (0.0-2.0); EOSINOPHILS # (AUTO) 0.3 K/uL (0.0-0.7); EOSINOPHILS % (AUTO) 4.5 % (0.0-7.0); HEMATOCRIT 26.8 % (37-47); HEMOGLOBIN 8.2 G/DL (12.0-16.0); LYMPHOCYTES # (AUTO) 1.3 K/UL (0.8-4.8); LYMPHOCYTES % (AUTO) 17.7 % (20.5-51.5); MEAN CORPUSCULAR HEMOGLOBIN 29.7 UUG (27.0-31.0); MEAN CORPUSCULAR HGB CONC 31 g/dL (32.0-37.0); MEAN CORPUSCULAR VOLUME 97.1 FL (81.0-99.0); MONOCYTES # (AUTO) 0.4 K/UL (0.1-1.30); MONOCYTES % (AUTO) 5.7 % (0.0-11.0); NEUTROPHILS # (AUTO) 5.4 K/UL (1.8-8.9); NEUTROPHILS % (AUTO) 71.5 % (38.5-71.5); PLATELET COUNT (AUTO) 285 K/UL (150-450); RED BLOOD CELL COUNT(AUTO) 2.76 MIL/UL (4.2-5.4); WHITE BLOOD COUNT (AUTO) 7.4 K/UL (4.0-11.2)
[2017-03-16] MEDS: ACIDOPHILUS/BULGARICUS CHEW TAB GT SCH ×2 (09:34→21:22)
[2017-03-16] MEDS: LEVETIRACETAM 500 MG/5 ML LIQUID UDC GT SCH ×2 (09:34→21:22)
[2017-03-16] MEDS: COD LIVER OIL/ZINC OXIDE OINT 113 GM TUBE TOP SCH ×2 (09:35→21:22)
[2017-03-16] MEDS: FAMOTIDINE 20 MG TABLET GT SCH ×2 (09:35→21:22)
[2017-03-16] MEDS: FUROSEMIDE 40 MG/4 ML GT SCH ×2 (09:35→21:22)
[2017-03-16] MEDS: COD LIVER OIL/ZINC OXIDE OINT 113 GM TUBE TP SCH (09:36)
[2017-03-16] MEDS: HYDROGEN PEROXIDE 3% 118 ML BOTTLE TP SCH ×2 (09:36→21:22)
[2017-03-16] MEDS: VITAMINS A AND D OINT TP SCH (09:36)
[2017-03-16] MEDS: POTASSIUM CHLORIDE 20 MEQ TAB.PRT.SR XX SCH ×2 (09:36→17:28)
[2017-03-16] MEDS: PHENOBARBITAL GT SCH ×2 (09:39→21:22)
[2017-03-16] MEDS: INSULIN DETEMIR 300 UNIT/3 ML CARTRIDGE SQ SCH ×2 (09:40→20:57)
--- NOTE | 2017-03-16 14:03 | NUR ---
Paged Shelbie Chauhan regarding Hematology consult with patient. Spoke to social secretary, left message, social secretary agree to page Dr. Pereyra. Awaiting a call back.
--- NOTE | 2017-03-16 15:11 | NUR ---
Paged Dr. Louis regarding abnormal lab results sodium 149 and phosphorus 2.4. left message with medical secretary teacher, awaiting a call back.
[2017-03-16] MEDS ORDERED: NEUTRA PHOS PACKET PO ONE (15:15)
[2017-03-16] MEDS: INSULIN REGULAR, HUMAN 300 UNIT/3 ML VIAL SQ PRN (17:28)
[2017-03-16 20:06] VITALS: BP 132/65
[2017-03-16] MEDS: FISH OIL GT SCH (21:22)
[2017-03-16] MEDS: [UNRECOGNIZED DRUG - OTHER] GT SCH (21:22)
[2017-03-16] MEDS: CALCIUM CARBONATE 500 MG TAB.CHEW GT SCH (21:22)
[2017-03-16] MEDS: HYDROCODONE/APAP 5-325MG TABLET GT PRN (22:31)
--- NOTE | 2017-03-16 23:45 | NUR ---
Afebrile and resting comfortably in bed, still with distended abdomen, with positive bowel sounds on all four quadrants, gt residual of 75 ml, HOB elevated and on aspiration precaution, kept clean and comfortable. Addendum: 03/17/17 at 0526 by MARINA PEÑA RN Patient is sleeping, no signs of distress noted, gt site is dry, no drainage noted, good skin care done. kept clean and comfortable.
[2017-03-17] MEDS: BACLOFEN 10 MG TABLET GT SCH ×4 (00:29→17:22)
[2017-03-17] MEDS: BLOOD SUGAR DIAGNOSTIC 1 EACH STRIP VI SCH ×4 (00:30→17:22)
[2017-03-17] MEDS: INSULIN REGULAR, HUMAN 300 UNIT/3 ML VIAL SQ PRN ×4 (00:56→17:24)
[2017-03-17] MEDS: NUTRISOURCE FIBER 4 GM PACKET GT SCH ×3 (06:15→22:54)
[2017-03-17] MEDS: DIABETICSOURCE AC 1000ML LIQUID GT PRN (07:00)
[2017-03-17] MEDS: ACIDOPHILUS/BULGARICUS CHEW TAB GT SCH ×2 (08:05→20:21)
[2017-03-17] MEDS: INSULIN DETEMIR 300 UNIT/3 ML CARTRIDGE SQ SCH ×2 (08:07→21:28)
[2017-03-17] MEDS: COD LIVER OIL/ZINC OXIDE OINT 113 GM TUBE TP SCH (08:20)
[2017-03-17] MEDS: VITAMINS A AND D OINT TP SCH (08:20)
[2017-03-17] MEDS: LEVETIRACETAM 500 MG/5 ML LIQUID UDC GT SCH ×2 (08:20→20:21)
[2017-03-17] MEDS: COD LIVER OIL/ZINC OXIDE OINT 113 GM TUBE TOP SCH ×2 (08:20→20:21)
[2017-03-17] MEDS: HYDROGEN PEROXIDE 3% 118 ML BOTTLE TP SCH ×2 (08:20→20:21)
[2017-03-17] MEDS: FUROSEMIDE 40 MG/4 ML GT SCH ×2 (08:20→20:21)
[2017-03-17] MEDS: PHENOBARBITAL GT SCH ×2 (08:20→20:21)
[2017-03-17] MEDS: POTASSIUM CHLORIDE 20 MEQ TAB.PRT.SR XX SCH ×2 (08:20→17:22)
[2017-03-17] MEDS: FAMOTIDINE 20 MG TABLET GT SCH ×2 (08:20→20:21)
[2017-03-17 11:56] VITALS: BP 113/62
--- NOTE | 2017-03-17 14:00 | NUR ---
NEW ORDERS CARRIED OUT FROM DR. HERBERT D/T NEAR GT SITE OPEN AREA DRAINING PUS AND HARD TO TOUCH OTHERWISE AFEBRILE AND STABLE.
[2017-03-17 19:53] VITALS: BP 108/61
[2017-03-17] MEDS: FISH OIL GT SCH (20:21)
[2017-03-17] MEDS: CALCIUM CARBONATE 500 MG TAB.CHEW GT SCH (20:21)
[2017-03-17] MEDS: [UNRECOGNIZED DRUG - OTHER] GT SCH (20:21)
--- NOTE | 2017-03-17 20:21 | NUR ---
Pt received awake, on HT-50 vent with the following settings of AC-12, Vt-450, PEEP+5, FIO2-35%, trached with Shiley#6 DCT trach, which is in the place and secure. No distress noted. Airway care done, pt responded to physical stimuli. HME and Sx Juarez changed. Resus. bag and back up trach at bedside. Vent and alarms on and audible.
--- NOTE | 2017-03-17 21:44 | NUR ---
Afebrile, no signs of any distress noted, 02 sat @ 97%, abdomen id distended but with positive bowel sounds on all fours quadrants, no residuals noted , with an open area near GT site, no drainage noted but it is hard to touch around it and noted redness, good skin care done, covered with dry dressing, lee catheter is draining well to yellow urine, turned and repositioned, kept clean and comfortable.
[2017-03-17] MEDS: HYDROCODONE/APAP 5-325MG TABLET GT PRN (22:00)
[2017-03-18] MEDS: BLOOD SUGAR DIAGNOSTIC 1 EACH STRIP VI SCH ×4 (00:09→17:05)
[2017-03-18] MEDS: BACLOFEN 10 MG TABLET GT SCH ×4 (00:09→17:05)
[2017-03-18] MEDS: INSULIN REGULAR, HUMAN 300 UNIT/3 ML VIAL SQ PRN ×4 (00:10→17:06)
[2017-03-18] MEDS: NUTRISOURCE FIBER 4 GM PACKET GT SCH ×3 (05:11→22:03)
[2017-03-18] MEDS: HYDROCODONE/APAP 5-325MG TABLET GT PRN ×2 (06:04→20:50)
--- NOTE | 2017-03-18 06:30 | NUR ---
Noted with yellowish drainage from gt site and also from open are near gt site, gt care done and good skin care done, no nausea/vomiting, no residual noted from gt site, kept clean and comfortable.
[2017-03-18 06:38] LABS: BASOPHILS % (AUTO) 0.2 % (0.0-2.0); EOSINOPHILS # (AUTO) 0.3 K/uL (0.0-0.7); EOSINOPHILS % (AUTO) 3.2 % (0.0-7.0); HEMATOCRIT 25.8 % (37-47); LYMPHOCYTES # (AUTO) 1.2 K/UL (0.8-4.8); LYMPHOCYTES % (AUTO) 14.2 % (20.5-51.5); MEAN CORPUSCULAR HEMOGLOBIN 30.4 UUG (27.0-31.0); MEAN CORPUSCULAR HGB CONC 31 g/dL (32.0-37.0); MEAN CORPUSCULAR VOLUME 98.1 FL (81.0-99.0); MONOCYTES # (AUTO) 0.5 K/UL (0.1-1.30); MONOCYTES % (AUTO) 5.6 % (0.0-11.0); NEUTROPHILS # (AUTO) 6.2 K/UL (1.8-8.9); NEUTROPHILS % (AUTO) 76.8 % (38.5-71.5); PLATELET COUNT (AUTO) 268 K/UL (150-450); RED BLOOD CELL COUNT(AUTO) 2.63 MIL/UL (4.2-5.4); WHITE BLOOD COUNT (AUTO) 8.2 K/UL (4.0-11.2)
[2017-03-18] MEDS: FUROSEMIDE 40 MG/4 ML GT SCH ×2 (08:49→20:38)
[2017-03-18] MEDS: FAMOTIDINE 20 MG TABLET GT SCH ×2 (08:49→20:39)
[2017-03-18] MEDS: PHENOBARBITAL GT SCH ×2 (08:49→20:54)
[2017-03-18] MEDS: ACIDOPHILUS/BULGARICUS CHEW TAB GT SCH ×2 (08:49→20:36)
[2017-03-18] MEDS: LEVETIRACETAM 500 MG/5 ML LIQUID UDC GT SCH ×2 (08:49→20:37)
[2017-03-18] MEDS: INSULIN DETEMIR 300 UNIT/3 ML CARTRIDGE SQ SCH ×2 (08:50→20:41)
[2017-03-18] MEDS: COD LIVER OIL/ZINC OXIDE OINT 113 GM TUBE TP SCH (08:51)
[2017-03-18] MEDS: HYDROGEN PEROXIDE 3% 118 ML BOTTLE TP SCH ×2 (08:51→20:43)
[2017-03-18] MEDS: COD LIVER OIL/ZINC OXIDE OINT 113 GM TUBE TOP SCH ×2 (08:51→20:43)
[2017-03-18] MEDS: VITAMINS A AND D OINT TP SCH (08:51)
[2017-03-18] MEDS: POTASSIUM CHLORIDE 20 MEQ TAB.PRT.SR XX SCH ×2 (08:51→17:03)
[2017-03-18 11:01] VITALS: BP 111/57
--- NOTE | 2017-03-18 14:03 | NUR ---
dr. hood was notified re:resuts of cbc and nno.
--- NOTE | 2017-03-18 20:24 | NUR ---
Pt received awake, on HT-50 vent with the following settings of AC-12, Vt-450, PEEP+5, FIO2-35%, trached with Shiley#6 DCT trach, which is in the place and secure. No respiratory distress noted. Airway care done, pt responded to physical stimuli. HME changed. Resus. bag and back up trach at bedside. Vent and alarms on and audible.
[2017-03-18] MEDS: FISH OIL GT SCH (20:37)
[2017-03-18] MEDS: [UNRECOGNIZED DRUG - OTHER] GT SCH (20:37)
[2017-03-18] MEDS: CALCIUM CARBONATE 500 MG TAB.CHEW GT SCH (20:39)
--- NOTE | 2017-03-18 22:50 | NUR ---
Patient is afebrile, No distress noted, abdio Addendum: 03/19/17 at 0642 by MARINA PEÑA RN Patient is afebrile and no distress noted, abdomen is still distended, (+) bowel sounds on all four quadrants, no drainage noted from open area near gt site and no drainage from gt site, no residual noted from gt, lee cather draining well to yellow urine, good catheter care done, smitha care rendered, kept clean and comfortable.
[2017-03-18 23:51] VITALS: BP 110/50
[2017-03-19] MEDS: BLOOD SUGAR DIAGNOSTIC 1 EACH STRIP VI SCH ×4 (00:07→17:20)
[2017-03-19] MEDS: BACLOFEN 10 MG TABLET GT SCH ×4 (00:07→17:18)
[2017-03-19] MEDS: NUTRISOURCE FIBER 4 GM PACKET GT SCH ×3 (05:32→21:24)
[2017-03-19 06:38] LABS: BASOPHILS # (AUTO) 0.1 K/uL (0.0-8.0); BASOPHILS % (AUTO) 0.8 % (0.0-2.0); EOSINOPHILS # (AUTO) 0.3 K/uL (0.0-0.7); EOSINOPHILS % (AUTO) 5.1 % (0.0-7.0); HEMATOCRIT 24.9 % (37-47); HEMOGLOBIN 7.6 G/DL (12.0-16.0); LYMPHOCYTES # (AUTO) 1.5 K/UL (0.8-4.8); LYMPHOCYTES % (AUTO) 22.5 % (20.5-51.5); MEAN CORPUSCULAR HEMOGLOBIN 29.9 UUG (27.0-31.0); MEAN CORPUSCULAR HGB CONC 31 g/dL (32.0-37.0); MONOCYTES # (AUTO) 0.4 K/UL (0.1-1.30); NEUTROPHILS # (AUTO) 4.2 K/UL (1.8-8.9); NEUTROPHILS % (AUTO) 65.6 % (38.5-71.5); PLATELET COUNT (AUTO) 267 K/UL (150-450); RED BLOOD CELL COUNT(AUTO) 2.54 MIL/UL (4.2-5.4); WHITE BLOOD COUNT (AUTO) 6.5 K/UL (4.0-11.2)
[2017-03-19] MEDS: DIABETICSOURCE AC 1000ML LIQUID GT PRN (06:53)
[2017-03-19 07:12] LABS: BILIRUBIN,TOTAL 0.4 mg/dL (0.2-1.0); MAGNESIUM 2.6 mg/dL (1.8-2.4); PHOSPHOROUS 2.8 mg/dL (2.5-4.9); POTASSIUM 3.8 mmol/L (3.5-5.1); TOTAL PROTEIN, SERUM 8.3 g/dL (6.4-8.2)
[2017-03-19 08:00] VITALS: BP 106/56
[2017-03-19] MEDS: LEVETIRACETAM 500 MG/5 ML LIQUID UDC GT SCH ×2 (08:37→21:21)
[2017-03-19] MEDS: ACIDOPHILUS/BULGARICUS CHEW TAB GT SCH ×2 (08:37→21:20)
[2017-03-19] MEDS: FUROSEMIDE 40 MG/4 ML GT SCH ×2 (08:38→21:22)
[2017-03-19] MEDS: FAMOTIDINE 20 MG TABLET GT SCH ×2 (08:39→21:22)
[2017-03-19] MEDS: PHENOBARBITAL GT SCH ×2 (08:39→21:22)
[2017-03-19] MEDS: COD LIVER OIL/ZINC OXIDE OINT 113 GM TUBE TP SCH (08:39)
[2017-03-19] MEDS: POTASSIUM CHLORIDE 20 MEQ TAB.PRT.SR XX SCH ×2 (08:39→17:18)
[2017-03-19] MEDS: HYDROGEN PEROXIDE 3% 118 ML BOTTLE TP SCH ×2 (08:39→21:24)
[2017-03-19] MEDS: COD LIVER OIL/ZINC OXIDE OINT 113 GM TUBE TOP SCH ×2 (08:39→21:24)
[2017-03-19] MEDS: VITAMINS A AND D OINT TP SCH (08:39)
[2017-03-19] MEDS: INSULIN DETEMIR 300 UNIT/3 ML CARTRIDGE SQ SCH ×2 (08:41→21:18)
--- NOTE | 2017-03-19 13:45 | NUR ---
Seen and examined by Mireya COLLAZO, notified of the Lab result of HGB 7.6 and Sodium 155. New orders given noted and carried out.
--- NOTE | 2017-03-19 17:37 | NUR ---
RESIDENT REMAIN ON VENT HT-50 WITH SETTINGS OF AC 12,VT 450, PEEP 5 AND FIO2 35%. STABLE WITH O2 SATURATION OF 99% THIS MORNING. SUCTIONED FOR MODERATE AMOUNT OF THICK WHITISH SECRETIONS ORALLY AND FROM THE TRACH. VENTILATOR IS WORKING WELL WITH ALL ALARMS ACTIVE. CHANGED HUMIDIFIER FILTER.
[2017-03-19 21:03] VITALS: BP 95/46
[2017-03-19] MEDS: FISH OIL GT SCH (21:21)
[2017-03-19] MEDS: [UNRECOGNIZED DRUG - OTHER] GT SCH (21:21)
[2017-03-19] MEDS: CALCIUM CARBONATE 500 MG TAB.CHEW GT SCH (21:32)
[2017-03-20] MEDS: BLOOD SUGAR DIAGNOSTIC 1 EACH STRIP VI SCH ×5 (00:05→23:49)
[2017-03-20] MEDS: BACLOFEN 10 MG TABLET GT SCH ×5 (00:05→23:49)
[2017-03-20] MEDS: NUTRISOURCE FIBER 4 GM PACKET GT SCH ×3 (05:10→21:13)
[2017-03-20 07:25] LABS: BILIRUBIN,TOTAL 0.4 mg/dL (0.2-1.0); CREATININE 0.9 mg/dL (0.6-1.3); MAGNESIUM 2.5 mg/dL (1.8-2.4); PHOSPHOROUS 3.2 mg/dL (2.5-4.9); POTASSIUM 3.9 mmol/L (3.5-5.1); TOTAL PROTEIN, SERUM 8.7 g/dL (6.4-8.2)
[2017-03-20 07:27] LABS: BASOPHILS % (AUTO) 0.1 % (0.0-2.0); EOSINOPHILS # (AUTO) 0.4 K/uL (0.0-0.7); EOSINOPHILS % (AUTO) 4.4 % (0.0-7.0); HEMATOCRIT 26.7 % (37-47); LYMPHOCYTES # (AUTO) 1.8 K/UL (0.8-4.8); LYMPHOCYTES % (AUTO) 22.2 % (20.5-51.5); MEAN CORPUSCULAR HEMOGLOBIN 29.7 UUG (27.0-31.0); MEAN CORPUSCULAR HGB CONC 30 g/dL (32.0-37.0); MEAN CORPUSCULAR VOLUME 98.7 FL (81.0-99.0); MONOCYTES # (AUTO) 0.5 K/UL (0.1-1.30); MONOCYTES % (AUTO) 6.5 % (0.0-11.0); NEUTROPHILS # (AUTO) 5.6 K/UL (1.8-8.9); NEUTROPHILS % (AUTO) 66.8 % (38.5-71.5); PLATELET COUNT (AUTO) 240 K/UL (150-450); RED BLOOD CELL COUNT(AUTO) 2.71 MIL/UL (4.2-5.4)
[2017-03-20 07:35] LABS: WHITE BLOOD COUNT (AUTO) 8.3 K/UL (4.0-11.2)
[2017-03-20 08:00] VITALS: BP 116/59
--- NOTE | 2017-03-20 08:10 | NUR ---
Pt received laying in bed, semi-Huff's, awake - eyes open, unable to communicate, withdraws to physical stimuli.. Pt trach: Shiley [address] / secure with tie, no visible sign of skin irritation / breakdown noted under / around trach tie.. Trach site clean / dry, stoma appears normal, no discoloration noted.. Continuous mechanical ventilation, vent: HT-50 w/settings: A/C 12, Vt 450, PEEP +5, FiO2 35%, tolerating well, no changes made to vent settings at this time.. Vent alarms checked, alarms on / audible and functioning properly at this time.. BVM / back up trach at bedside.. No s/s of respiratory distress / S.O.B noted.. Will continue to monitor..
[2017-03-20] MEDS: INSULIN DETEMIR 300 UNIT/3 ML CARTRIDGE SQ SCH ×2 (08:45→21:17)
[2017-03-20] MEDS: LEVETIRACETAM 500 MG/5 ML LIQUID UDC GT SCH ×2 (08:49→21:10)
[2017-03-20] MEDS: ACIDOPHILUS/BULGARICUS CHEW TAB GT SCH ×2 (08:49→21:10)
[2017-03-20] MEDS: FAMOTIDINE 20 MG TABLET GT SCH ×2 (08:50→21:12)
[2017-03-20] MEDS: FUROSEMIDE 40 MG/4 ML GT SCH ×2 (08:50→21:12)
[2017-03-20] MEDS: PHENOBARBITAL GT SCH ×2 (08:50→21:12)
[2017-03-20] MEDS: COD LIVER OIL/ZINC OXIDE OINT 113 GM TUBE TP SCH (08:51)
[2017-03-20] MEDS: COD LIVER OIL/ZINC OXIDE OINT 113 GM TUBE TOP SCH ×2 (08:51→21:12)
[2017-03-20] MEDS: HYDROGEN PEROXIDE 3% 118 ML BOTTLE TP SCH ×2 (08:51→21:13)
[2017-03-20] MEDS: VITAMINS A AND D OINT TP SCH (08:51)
[2017-03-20] MEDS: POTASSIUM CHLORIDE 20 MEQ TAB.PRT.SR XX SCH ×2 (08:51→17:49)
[2017-03-20 12:11] LABS: BAND % (MANUAL) 9 % (0-10); EOSINOPHILS % (MANUAL) 4 % (0-8); LYMPHOCYTES % (MANUAL) 23 % (20-40); MONOCYTES % (MANUAL) 3 % (2-10); NEUTROPHILS % (MANUAL) 61 % (42-75)
[2017-03-20] MEDS: INSULIN REGULAR, HUMAN 300 UNIT/3 ML VIAL SQ PRN ×2 (12:20→18:24)
--- NOTE | 2017-03-20 13:00 | NUR ---
NEW ORDER CARRIED OUT FOR CONTACT ISOLATION D/T OPEN ABSCESS NEAR GT SITE FROM DR. HERBERT.
--- NOTE | 2017-03-20 15:30 | NUR ---
INTERDISCIPLINARY PLAN OF CARE CONFERENCE was held today. Patient's family was invited to the meeting, but they were unable to attend. Dr. Gilbert and the Interdisciplinary Team reviewed the current plan of care in detail. RN provided updates on patient's current medical condition, medications, and recently ordered tests and procedures. See RN IDT conference notes. See also all other disciplines IDT notes and physician's progress notes for additional details.
[2017-03-20 20:55] VITALS: BP 116/63
--- NOTE | 2017-03-20 21:00 | NUR ---
PT ON CONT HT 50 VENT WITH SHILEY # [address] AND SECURED, WITH SAME CURRENT VENT SETTINGS, PT DOES ASSIST AT TIMES, WITH GOOD COUGH EFFORT, SUCTIONED LIGHT PALE YELL TINGE SECRETIONS, WITH NO VENT CHANGES MADE AT THIS TIME, ALL ALARMS OK, AMBU BAG AT BEDSIDE , CHECK CUFF. CHANGE HME, NO SOB NOTED, PIP 38-42 CM, PT STABLE, B/S SLIGHTLY RHONCHI,CLEARING AFTER SUCTIONING. Andi CHAKRABORTYP Addendum: 03/20/17 at 2103 by ETHEL FERGUSON RT Amended: Links added.
[2017-03-20] MEDS: FISH OIL GT SCH (21:10)
[2017-03-20] MEDS: [UNRECOGNIZED DRUG - OTHER] GT SCH (21:10)
[2017-03-20] MEDS: CALCIUM CARBONATE 500 MG TAB.CHEW GT SCH (21:12)
[2017-03-20] MEDS: MUPIROCIN 2% OINT 22 GM TUBE TP SCH (21:19)
--- NOTE | 2017-03-20 21:30 | NUR ---
DR CRISTINA NOTIFIED HEMOGLOBIN 7.6-03/19/17 AND HEMOGLOBIN 8.0-03/20/17, NO NEW ORDERS.
[2017-03-21] MEDS: BLOOD SUGAR DIAGNOSTIC 1 EACH STRIP VI SCH ×3 (05:13→18:09)
[2017-03-21] MEDS: BACLOFEN 10 MG TABLET GT SCH ×3 (05:13→18:05)
[2017-03-21] MEDS: NUTRISOURCE FIBER 4 GM PACKET GT SCH ×3 (05:13→22:17)
[2017-03-21] MEDS: INSULIN REGULAR, HUMAN 300 UNIT/3 ML VIAL SQ PRN (06:59)
[2017-03-21] MEDS: HYDROCODONE/APAP 5-325MG TABLET GT PRN ×2 (09:00→17:00)
[2017-03-21] MEDS: ACIDOPHILUS/BULGARICUS CHEW TAB GT SCH ×2 (09:27→20:12)
[2017-03-21] MEDS: LEVETIRACETAM 500 MG/5 ML LIQUID UDC GT SCH ×2 (09:27→20:12)
[2017-03-21] MEDS: COD LIVER OIL/ZINC OXIDE OINT 113 GM TUBE TP SCH (09:28)
[2017-03-21] MEDS: POTASSIUM CHLORIDE 20 MEQ TAB.PRT.SR XX SCH ×2 (09:28→18:00)
[2017-03-21] MEDS: COD LIVER OIL/ZINC OXIDE OINT 113 GM TUBE TOP SCH ×2 (09:28→20:16)
[2017-03-21] MEDS: FUROSEMIDE 40 MG/4 ML GT SCH ×2 (09:28→20:12)
[2017-03-21] MEDS: HYDROGEN PEROXIDE 3% 118 ML BOTTLE TP SCH ×2 (09:28→20:16)
[2017-03-21] MEDS: VITAMINS A AND D OINT TP SCH (09:28)
[2017-03-21] MEDS: PHENOBARBITAL GT SCH ×2 (09:28→20:12)
[2017-03-21] MEDS: MUPIROCIN 2% OINT 22 GM TUBE TP SCH ×2 (09:28→20:16)
[2017-03-21] MEDS: FAMOTIDINE 20 MG TABLET GT SCH ×2 (09:28→20:13)
[2017-03-21] MEDS: INSULIN DETEMIR 300 UNIT/3 ML CARTRIDGE SQ SCH ×2 (09:30→20:14)
[2017-03-21 10:34] VITALS: BP 100/48
[2017-03-21] MEDS: SOD FERRIC GLUC COMPLX/SUCROSE 125 MG in IV NORMAL SALINE 100 ML IV SCH (14:19)
--- NOTE | 2017-03-21 19:06 | NUR ---
SEEN BY DR HICKMAN AND DR. BARNETT AND NNO.NO A/R TO IV FERRLECIT.
[2017-03-21] MEDS: [UNRECOGNIZED DRUG - OTHER] GT SCH (20:12)
[2017-03-21] MEDS: FISH OIL GT SCH (20:12)
[2017-03-21] MEDS: CALCIUM CARBONATE 500 MG TAB.CHEW GT SCH (20:13)
[2017-03-21 20:33] VITALS: BP 137/85
[2017-03-21] MEDS: CEFEPIME HCL 1 G in IV DEXTROSE 5% 50 ML IV SCH (22:00)
--- NOTE | 2017-03-21 22:00 | NUR ---
Seen with new orders from Dr. Tsai, Maxipime 1 gram IVPB every 8 hours and vancomycin to dose by Pharmacy for near gt site open abcess. I spoke to [place] and he gave me vancomycin dosing of Vancomycin 1750 mg every 24 hours and to do trough with BUN, Crea before the 3rd dose, noted and carried out. I asked Orlando (pharmacist) and James from dispatch if both medications are covered by insurance and they stated "yes". Initiated Maxipime with no adverse reactions noted, no drainage from affected site at this time but it is noted to be red, abdomen is distended but with positive bowel sounds on all 4 quadrants, f/c is draining well to yellow urine, kept patient clean and comfortable.
[2017-03-22] MEDS: BLOOD SUGAR DIAGNOSTIC 1 EACH STRIP VI SCH ×4 (00:21→18:12)
[2017-03-22] MEDS: BACLOFEN 10 MG TABLET GT SCH ×4 (00:21→17:56)
[2017-03-22] MEDS: HYDROCODONE/APAP 5-325MG TABLET GT PRN ×4 (04:03→16:16)
[2017-03-22] MEDS: NUTRISOURCE FIBER 4 GM PACKET GT SCH ×3 (05:09→22:19)
[2017-03-22] MEDS: CEFEPIME HCL 1 G in IV DEXTROSE 5% 50 ML IV SCH ×3 (06:00→22:00)
--- NOTE | 2017-03-22 06:50 | NUR ---
PT CURRENTLY ON CONTINUOUS MECHANICAL VENTILATION. CURRENT SETTINGS ARE AC 12, VT 450, PEEP +5, FIO2 35%. PT APPEARS TO BE COMFORTABLE AT THIS TIME. NO S/S OF RESPIRATORY DISTRESS OBSERVED AT THIS TIME. NO CHANGES MADE ON VENT. VENT ALARMS CHECKED, ARE ON AND AUDIBLE. TRACH IS PATENT AND SECURED WITH FOAM TRACH TIES. SUCTIONED SMALL AMOUNT OF THICK, PALE SECRETIONS. HME CHANGED NEEDED. BVM AND BACK UP TRACH ARE AT BEDSIDE. VENT IS PLUGGED INTO RED EMERGENCY OUTLET. WILL CONTINUE TO MONITOR PT THROUGHOUT SHIFT.
[2017-03-22 08:00] VITALS: BP 108/61
[2017-03-22] MEDS: INSULIN DETEMIR 300 UNIT/3 ML CARTRIDGE SQ SCH ×2 (09:07→20:08)
[2017-03-22] MEDS: ACIDOPHILUS/BULGARICUS CHEW TAB GT SCH ×2 (09:12→20:07)
[2017-03-22] MEDS: LEVETIRACETAM 500 MG/5 ML LIQUID UDC GT SCH ×2 (09:12→20:07)
[2017-03-22] MEDS: FUROSEMIDE 40 MG/4 ML GT SCH ×2 (09:12→20:07)
[2017-03-22] MEDS: VITAMINS A AND D OINT TP SCH (09:13)
[2017-03-22] MEDS: PHENOBARBITAL GT SCH ×2 (09:13→20:07)
[2017-03-22] MEDS: FAMOTIDINE 20 MG TABLET GT SCH ×2 (09:13→20:07)
[2017-03-22] MEDS: POTASSIUM CHLORIDE 20 MEQ TAB.PRT.SR XX SCH ×2 (09:13→17:56)
[2017-03-22] MEDS: COD LIVER OIL/ZINC OXIDE OINT 113 GM TUBE TOP SCH ×2 (09:13→20:08)
[2017-03-22] MEDS: HYDROGEN PEROXIDE 3% 118 ML BOTTLE TP SCH ×2 (09:13→20:08)
[2017-03-22] MEDS: COD LIVER OIL/ZINC OXIDE OINT 113 GM TUBE TP SCH (09:13)
[2017-03-22] MEDS: MUPIROCIN 2% OINT 22 GM TUBE TP SCH ×2 (09:13→20:08)
--- NOTE | 2017-03-22 11:30 | NUR ---
Seen by Kasey COLLAZO, with no new order.
[2017-03-22] MEDS: INSULIN REGULAR, HUMAN 300 UNIT/3 ML VIAL SQ PRN ×2 (12:56→18:12)
[2017-03-22] MEDS: SOD FERRIC GLUC COMPLX/SUCROSE 125 MG in IV NORMAL SALINE 100 ML IV SCH (14:00)
[2017-03-22] MEDS: FISH OIL GT SCH (20:07)
[2017-03-22] MEDS: CALCIUM CARBONATE 500 MG TAB.CHEW GT SCH (20:07)
[2017-03-22] MEDS: [UNRECOGNIZED DRUG - OTHER] GT SCH (20:07)
[2017-03-22] MEDS: DIABETICSOURCE AC 1000ML LIQUID GT PRN (20:28)
[2017-03-22 20:54] VITALS: BP 117/55
[2017-03-22] MEDS: VANCOMYCIN IV 1,750 MG in IV DEXTROSE 5% 500 ML IV SCH ×3 (23:58)
--- NOTE | 2017-03-23 00:02 | NUR ---
On maxipime and vancomycin IV for near gt site abcess/infection, no adverse reactions noted, on contact isolation for MRSA of near gt site abcess, afebrile, no drainage noted from affected site but site and surrounding area is red and is tight, noted with abdominal distention but with positive bowel sounds on all quadrants, no respiratory distress noted, kept clean and comfortable.
[2017-03-23] MEDS: BLOOD SUGAR DIAGNOSTIC 1 EACH STRIP VI SCH ×4 (00:35→17:16)
[2017-03-23] MEDS: BACLOFEN 10 MG TABLET GT SCH ×4 (00:35→17:02)
[2017-03-23] MEDS: INSULIN REGULAR, HUMAN 300 UNIT/3 ML VIAL SQ PRN ×3 (00:57→17:16)
[2017-03-23] MEDS: HYDROCODONE/APAP 5-325MG TABLET GT PRN ×3 (04:00→21:00)
[2017-03-23] MEDS: NUTRISOURCE FIBER 4 GM PACKET GT SCH ×3 (05:45→21:17)
[2017-03-23] MEDS: CEFEPIME HCL 1 G in IV DEXTROSE 5% 50 ML IV SCH ×3 (06:07→21:55)
[2017-03-23 08:00] VITALS: BP 102/59
[2017-03-23] MEDS: LEVETIRACETAM 500 MG/5 ML LIQUID UDC GT SCH ×2 (09:12→20:16)
[2017-03-23] MEDS: ACIDOPHILUS/BULGARICUS CHEW TAB GT SCH ×2 (09:12→20:16)
[2017-03-23] MEDS: FUROSEMIDE 40 MG/4 ML GT SCH ×2 (09:13→20:17)
[2017-03-23] MEDS: FAMOTIDINE 20 MG TABLET GT SCH ×2 (09:13→20:17)
[2017-03-23] MEDS: PHENOBARBITAL GT SCH ×2 (09:13→20:17)
[2017-03-23] MEDS: COD LIVER OIL/ZINC OXIDE OINT 113 GM TUBE TOP SCH ×2 (09:15→20:17)
[2017-03-23] MEDS: HYDROGEN PEROXIDE 3% 118 ML BOTTLE TP SCH ×2 (09:15→20:17)
[2017-03-23] MEDS: POTASSIUM CHLORIDE 20 MEQ TAB.PRT.SR XX SCH ×2 (09:15→17:02)
[2017-03-23] MEDS: INSULIN DETEMIR 300 UNIT/3 ML CARTRIDGE SQ SCH ×2 (09:15→20:19)
[2017-03-23] MEDS: MUPIROCIN 2% OINT 22 GM TUBE TP SCH ×2 (09:15→20:17)
[2017-03-23] MEDS: COD LIVER OIL/ZINC OXIDE OINT 113 GM TUBE TP SCH (09:15)
[2017-03-23] MEDS: VITAMINS A AND D OINT TP SCH (09:15)
[2017-03-23] MEDS: SOD FERRIC GLUC COMPLX/SUCROSE 125 MG in IV NORMAL SALINE 100 ML IV SCH (14:47)
[2017-03-23] MEDS: [UNRECOGNIZED DRUG - OTHER] GT SCH (20:17)
[2017-03-23] MEDS: CALCIUM CARBONATE 500 MG TAB.CHEW GT SCH (20:17)
[2017-03-23] MEDS: FISH OIL GT SCH (20:17)
[2017-03-23 20:55] VITALS: BP 134/60
--- NOTE | 2017-03-23 21:22 | NUR ---
PT ON CONT HT 50 VENT WITH SHILEY # [address] AND SECURED, WITH SAME CURRENT VENT SETTINGS, PT DOES ASSIST AT TIMES ,SUCTIONED VERY LIGHT PALE YELL TINGE SECRETIONS, WITH GOOD COUGH EFFORT, CHECK CUFF, CHANGE HME, ALL ALARMS OK, AMBU BAG AT BEDSIDE, NO VENT CHANGES MADE AT THIS TIME, PT IS STABLE AT THIS TIME.Andi FERGUSON RCP Addendum: 03/23/17 at 2124 by ETHEL FERGUSON RT Amended: Links added.
[2017-03-24] MEDS: BACLOFEN 10 MG TABLET GT SCH ×4 (00:06→17:09)
[2017-03-24] MEDS: BLOOD SUGAR DIAGNOSTIC 1 EACH STRIP VI SCH ×4 (00:06→17:09)
[2017-03-24] MEDS: VANCOMYCIN IV 1,750 MG in IV DEXTROSE 5% 500 ML IV SCH (00:10)
[2017-03-24] MEDS: DIABETICSOURCE AC 1000ML LIQUID GT PRN (04:18)
[2017-03-24] MEDS: HYDROCODONE/APAP 5-325MG TABLET GT PRN (04:18)
--- NOTE | 2017-03-24 05:00 | NUR ---
continue on maxipime iv and vancomycin iv, no adverse reaction observed.
[2017-03-24] MEDS: NUTRISOURCE FIBER 4 GM PACKET GT SCH ×3 (05:30→21:05)
--- NOTE | 2017-03-24 05:45 | NUR ---
while cleaning pt, vent alarming, pt was high pressuring, suctioned, o2sat 85%, fio2 increased to 100%, respiratory therapist called and r.t. stated put back on fio2 35%, monitored pt, no further distress observed.
[2017-03-24] MEDS: CEFEPIME HCL 1 G in IV DEXTROSE 5% 50 ML IV SCH ×3 (05:57→22:01)
[2017-03-24 08:00] VITALS: BP 100/58
[2017-03-24] MEDS: LEVETIRACETAM 500 MG/5 ML LIQUID UDC GT SCH ×2 (08:47→21:02)
[2017-03-24] MEDS: ACIDOPHILUS/BULGARICUS CHEW TAB GT SCH ×2 (08:47→21:02)
[2017-03-24] MEDS: FAMOTIDINE 20 MG TABLET GT SCH ×2 (08:48→21:03)
[2017-03-24] MEDS: PHENOBARBITAL GT SCH ×2 (08:48→21:03)
[2017-03-24] MEDS: FUROSEMIDE 40 MG/4 ML GT SCH ×2 (08:48→21:02)
[2017-03-24] MEDS: COD LIVER OIL/ZINC OXIDE OINT 113 GM TUBE TOP SCH ×2 (08:49→21:05)
[2017-03-24] MEDS: MUPIROCIN 2% OINT 22 GM TUBE TP SCH ×2 (08:49→21:05)
[2017-03-24] MEDS: HYDROGEN PEROXIDE 3% 118 ML BOTTLE TP SCH ×2 (08:49→21:05)
[2017-03-24] MEDS: POTASSIUM CHLORIDE 20 MEQ TAB.PRT.SR XX SCH ×2 (08:49→17:09)
[2017-03-24] MEDS: VITAMINS A AND D OINT TP SCH (08:49)
[2017-03-24] MEDS: COD LIVER OIL/ZINC OXIDE OINT 113 GM TUBE TP SCH (08:49)
[2017-03-24] MEDS: INSULIN DETEMIR 300 UNIT/3 ML CARTRIDGE SQ SCH ×2 (08:53→21:20)
--- NOTE | 2017-03-24 09:30 | NUR ---
PATIENT IN BED, V/S STABLE NO S/S OF RESPIRATORY DISTRESS NOTED AT THIS TIME. PATIENT'S RESIDUAL CHECKED ORDERED AND 200 ML NOTED, GTUBE FEEDING HELD AT THIS TIME. RN ON CHARGE NOTIFIED, WILL CONTINUE MONITORING.
--- NOTE | 2017-03-24 10:13 | NUR ---
Patient was endorsed on CMV with ordered settings of AC 12 VT 450 PEEP 5 FIO2 35% No S/S of respiratory distress noted at this time.Trach is secure and patent. She is trached with a shiley #6 DCT. EDITORIAL WRITER used for cuff inflation. HME was changed without complications. Alarm parameters assessed and are on/audible. Spare trach at bedside. Will continue to monitor
--- NOTE | 2017-03-24 12:00 | NUR ---
G-TUBE FEEDING CONNECTED AND BACK ON AT THIS TIME. RESIDUAL WNL. WILL CONTINUE MONITORING.
[2017-03-24] MEDS: SOD FERRIC GLUC COMPLX/SUCROSE 125 MG in IV NORMAL SALINE 100 ML IV SCH (13:49)
--- NOTE | 2017-03-24 19:00 | NUR ---
PATIENT TOLERATED G-TUBE FEEDING WELL, NO DISTRESS NOTED AT THIS TIME.
[2017-03-24 20:52] VITALS: BP 102/51
[2017-03-24] MEDS: [UNRECOGNIZED DRUG - OTHER] GT SCH (21:02)
[2017-03-24] MEDS: FISH OIL GT SCH (21:02)
[2017-03-24] MEDS: CALCIUM CARBONATE 500 MG TAB.CHEW GT SCH (21:03)
[2017-03-25] MEDS: BACLOFEN 10 MG TABLET GT SCH ×4 (00:20→17:02)
[2017-03-25] MEDS: BLOOD SUGAR DIAGNOSTIC 1 EACH STRIP VI SCH ×4 (00:20→17:02)
[2017-03-25] MEDS: VANCOMYCIN IV 1,750 MG in IV DEXTROSE 5% 500 ML IV SCH (01:30)
--- NOTE | 2017-03-25 05:30 | NUR ---
vancomycin trough- 32.0,bun-37,creatinine-1.0, faxed results to [facility] iv dpt.
[2017-03-25] MEDS: CEFEPIME HCL 1 G in IV DEXTROSE 5% 50 ML IV SCH ×3 (06:00→22:13)
[2017-03-25] MEDS: NUTRISOURCE FIBER 4 GM PACKET GT SCH ×3 (06:16→21:30)
[2017-03-25] MEDS: HYDROCODONE/APAP 5-325MG TABLET GT PRN (06:18)
[2017-03-25] MEDS: INSULIN REGULAR, HUMAN 300 UNIT/3 ML VIAL SQ PRN (06:18)
[2017-03-25 08:00] VITALS: BP 120/65
[2017-03-25] MEDS: ACIDOPHILUS/BULGARICUS CHEW TAB GT SCH ×2 (08:04→21:28)
[2017-03-25] MEDS: LEVETIRACETAM 500 MG/5 ML LIQUID UDC GT SCH ×2 (08:05→21:28)
[2017-03-25] MEDS: FUROSEMIDE 40 MG/4 ML GT SCH ×2 (08:07→21:28)
[2017-03-25] MEDS: PHENOBARBITAL GT SCH ×2 (08:07→21:28)
[2017-03-25] MEDS: FAMOTIDINE 20 MG TABLET GT SCH ×2 (08:07→21:29)
[2017-03-25] MEDS: COD LIVER OIL/ZINC OXIDE OINT 113 GM TUBE TOP SCH ×2 (08:09→21:29)
[2017-03-25] MEDS: MUPIROCIN 2% OINT 22 GM TUBE TP SCH ×2 (08:09→21:29)
[2017-03-25] MEDS: COD LIVER OIL/ZINC OXIDE OINT 113 GM TUBE TP SCH (08:09)
[2017-03-25] MEDS: HYDROGEN PEROXIDE 3% 118 ML BOTTLE TP SCH ×2 (08:10→21:30)
[2017-03-25] MEDS: VITAMINS A AND D OINT TP SCH (08:10)
[2017-03-25] MEDS: POTASSIUM CHLORIDE 20 MEQ TAB.PRT.SR XX SCH ×2 (08:11→17:02)
[2017-03-25] MEDS: INSULIN DETEMIR 300 UNIT/3 ML CARTRIDGE SQ SCH ×2 (08:13→21:16)
--- NOTE | 2017-03-25 08:30 | NUR ---
PT WAS RECEIVED ON HT-50 VENT WITH SETTINGS AC12, VT450, PEEP +5, FIO2 35%. PT TRACH SECURED AND INTACT WITH TIE. PT TRACH SIZE SHILEY 6. PT HME WAS CHANGED. PT SUCTION WITH SMALL AMOUNT OF SECRETION OBTAIN. PT AT THIS TIME HAS NO DISTRESS AND TOLERATING VENT WELL. PT AMBU-BAG AND BACK UP TRACH AT BED SIDE. VENT ALARMS ON AND AUDIBLE. WILL CONTINUE TO MONITOR PT THROUGHOUT SHIFT. PT REMAINS HIGH PRESSURES NURSE AWARE.
--- NOTE | 2017-03-25 09:16 | NUR ---
MESSAGE WAS LEFT TO IV PHARMACIST RE:VANCOMYCIN TROUGH 32.0.
[2017-03-25] MEDS: DIABETICSOURCE AC 1000ML LIQUID GT PRN (12:04)
--- NOTE | 2017-03-25 14:31 | NUR ---
[facility] CALLED AND WITH NEW ORDERS CARRIED OUT,TO HOLD VANCOMYCIN AND RANDOM LEVEL ON Sunday.
[2017-03-25] MEDS: SOD FERRIC GLUC COMPLX/SUCROSE 125 MG in IV NORMAL SALINE 100 ML IV SCH (14:45)
--- NOTE | 2017-03-25 17:15 | NUR ---
PT'S FATHER CONSENTED TO ADM. OF FLU VACCINE.
[2017-03-25] MEDS: [UNRECOGNIZED DRUG - OTHER] GT SCH (21:28)
[2017-03-25] MEDS: FISH OIL GT SCH (21:28)
[2017-03-25] MEDS: CALCIUM CARBONATE 500 MG TAB.CHEW GT SCH (21:29)
[2017-03-25 22:54] VITALS: BP 104/64
[2017-03-26] MEDS: VANCOMYCIN IV 1,750 MG in IV DEXTROSE 5% 500 ML IV SCH ×2
[2017-03-26] MEDS: BACLOFEN 10 MG TABLET GT SCH ×4 (00:14→17:24)
[2017-03-26] MEDS: BLOOD SUGAR DIAGNOSTIC 1 EACH STRIP VI SCH ×4 (00:15→17:31)
[2017-03-26] MEDS: INSULIN REGULAR, HUMAN 300 UNIT/3 ML VIAL SQ PRN ×2 (00:23→05:33)
[2017-03-26] MEDS: CEFEPIME HCL 1 G in IV DEXTROSE 5% 50 ML IV SCH ×3 (05:15→22:49)
[2017-03-26] MEDS: NUTRISOURCE FIBER 4 GM PACKET GT SCH ×3 (05:31→21:24)
[2017-03-26] MEDS: HYDROCODONE/APAP 5-325MG TABLET GT PRN (05:43)
[2017-03-26 08:00] VITALS: BP 100/51
[2017-03-26] MEDS: ACIDOPHILUS/BULGARICUS CHEW TAB GT SCH ×2 (08:36→21:23)
[2017-03-26] MEDS: LEVETIRACETAM 500 MG/5 ML LIQUID UDC GT SCH ×2 (08:36→21:23)
[2017-03-26] MEDS: FAMOTIDINE 20 MG TABLET GT SCH ×2 (08:37→21:23)
[2017-03-26] MEDS: FUROSEMIDE 40 MG/4 ML GT SCH ×2 (08:37→21:23)
[2017-03-26] MEDS: PHENOBARBITAL GT SCH ×2 (08:37→21:23)
[2017-03-26] MEDS: MUPIROCIN 2% OINT 22 GM TUBE TP SCH ×2 (08:38→21:24)
[2017-03-26] MEDS: POTASSIUM CHLORIDE 20 MEQ TAB.PRT.SR XX SCH ×2 (08:38→17:24)
[2017-03-26] MEDS: COD LIVER OIL/ZINC OXIDE OINT 113 GM TUBE TOP SCH ×2 (08:38→21:23)
[2017-03-26] MEDS: HYDROGEN PEROXIDE 3% 118 ML BOTTLE TP SCH ×2 (08:38→21:24)
[2017-03-26] MEDS: VITAMINS A AND D OINT TP SCH (08:38)
[2017-03-26] MEDS: COD LIVER OIL/ZINC OXIDE OINT 113 GM TUBE TP SCH (08:38)
[2017-03-26] MEDS: INSULIN DETEMIR 300 UNIT/3 ML CARTRIDGE SQ SCH ×2 (08:39→21:09)
--- NOTE | 2017-03-26 11:30 | NUR ---
Seen by Kasey COLLAZO with no new order.
[2017-03-26] MEDS: SOD FERRIC GLUC COMPLX/SUCROSE 125 MG in IV NORMAL SALINE 100 ML IV SCH (13:09)
[2017-03-26] MEDS: DIABETICSOURCE AC 1000ML LIQUID GT PRN (17:24)
--- NOTE | 2017-03-26 20:02 | NUR ---
Received pt on HT-50 vent with the following settings of AC-12, Vt-450, PEEP+5, FIO2-35%, trached with Shiley#6 DCT trach, which is in the place and secure. No s/s of respiratory distress noted. Airway care done, pt responded to physical stimuli. HME changed. Resus. bag and back up trach at bedside. Vent and alarms working properly.
[2017-03-26 20:28] VITALS: BP 120/57
[2017-03-26] MEDS: CALCIUM CARBONATE 500 MG TAB.CHEW GT SCH (21:23)
[2017-03-26] MEDS: FISH OIL GT SCH (21:23)
[2017-03-26] MEDS: [UNRECOGNIZED DRUG - OTHER] GT SCH (21:23)
[2017-03-27] MEDS: VANCOMYCIN IV 1,750 MG in IV DEXTROSE 5% 500 ML IV SCH ×2
[2017-03-27] MEDS: BLOOD SUGAR DIAGNOSTIC 1 EACH STRIP VI SCH ×4 (00:21→18:04)
[2017-03-27] MEDS: BACLOFEN 10 MG TABLET GT SCH ×4 (00:21→17:49)
[2017-03-27] MEDS: NUTRISOURCE FIBER 4 GM PACKET GT SCH ×3 (05:05→21:44)
[2017-03-27] MEDS: HYDROCODONE/APAP 5-325MG TABLET GT PRN ×2 (05:07→12:08)
[2017-03-27] MEDS: CEFEPIME HCL 1 G in IV DEXTROSE 5% 50 ML IV SCH ×3 (05:32→21:46)
[2017-03-27] MEDS: ACIDOPHILUS/BULGARICUS CHEW TAB GT SCH ×2 (08:01→21:52)
[2017-03-27] MEDS: LEVETIRACETAM 500 MG/5 ML LIQUID UDC GT SCH ×2 (08:03→21:42)
[2017-03-27] MEDS: FUROSEMIDE 40 MG/4 ML GT SCH ×2 (08:04→21:43)
[2017-03-27] MEDS: FAMOTIDINE 20 MG TABLET GT SCH ×2 (08:04→21:53)
[2017-03-27] MEDS: PHENOBARBITAL GT SCH ×2 (08:04→21:43)
[2017-03-27] MEDS: MUPIROCIN 2% OINT 22 GM TUBE TP SCH (08:05)
[2017-03-27] MEDS: VITAMINS A AND D OINT TP SCH (08:05)
[2017-03-27] MEDS: COD LIVER OIL/ZINC OXIDE OINT 113 GM TUBE TOP SCH ×2 (08:05→21:44)
[2017-03-27] MEDS: POTASSIUM CHLORIDE 20 MEQ TAB.PRT.SR XX SCH ×2 (08:05→17:49)
[2017-03-27] MEDS: COD LIVER OIL/ZINC OXIDE OINT 113 GM TUBE TP SCH (08:05)
[2017-03-27] MEDS: HYDROGEN PEROXIDE 3% 118 ML BOTTLE TP SCH ×2 (08:05→21:44)
[2017-03-27] MEDS: INSULIN DETEMIR 300 UNIT/3 ML CARTRIDGE SQ SCH ×2 (08:18→21:54)
[2017-03-27 08:58] LABS: CREATININE 1.1 mg/dL (0.6-1.3); VANCOMYCIN,RANDOM 29.1 ug/mL (18.0-26.0)
[2017-03-27 11:11] VITALS: BP 102/61
--- NOTE | 2017-03-27 13:50 | NUR ---
Noted an opening next to the G-tube site, further assessment shown the opening at the infected G-tube site have discharge similar to the G-tube residual. Notified Yue COLLAZO, with order for GI consults. Called and left message for Dr. Frausto regarding GI consult. Patient continues on IV ATB TX for G-tube site infection.
[2017-03-27] MEDS: SOD FERRIC GLUC COMPLX/SUCROSE 125 MG in IV NORMAL SALINE 100 ML IV SCH (14:57)
--- NOTE | 2017-03-27 15:01 | NUR ---
Relayed vancomycin random, BUN, and creatinine lab result to [facility], with new recommendation to continue to hold vancomycin IV until further orders; random vancomycin level with BUN and creatinine in AM of 03/29/17. Noted and carried out.
--- NOTE | 2017-03-27 17:50 | NUR ---
The company secretary from Dr. Fields office called back. Relayed information regarding the G-tube site issue to Dr. Frausto through Her. Awaiting a call back.
--- NOTE | 2017-03-27 19:05 | NUR ---
Dr. Frausto called back, notified of opening next the G-tube stoma with residual feeding discharging from it and a G-tube residual of 300ml twice during the shift. New orders given, noted and carried out.
[2017-03-27 20:00] VITALS: BP 97/52
--- NOTE | 2017-03-27 20:10 | NUR ---
Patient noted with residual 300ml twice during this shift. Paged Dr. Gilbert with orders noted and carried out.
--- NOTE | 2017-03-27 21:30 | NUR ---
iv d51/2ns@75ml/hr started, continue on maxipime iv, no adverse reaction observed, opening next to g-tube, oozing green color drainage,feeding on hold, blood sugar @05am- 141, no hypoglycemia observed.
[2017-03-27] MEDS: IV D5 1/2 NS 1000 ML 1,000 ML IV PRN (21:45)
[2017-03-27] MEDS: CALCIUM CARBONATE 500 MG TAB.CHEW GT SCH (21:53)
[2017-03-27] MEDS: FISH OIL GT SCH (21:53)
[2017-03-27] MEDS: [UNRECOGNIZED DRUG - OTHER] GT SCH (21:53)
[2017-03-28] MEDS: VANCOMYCIN IV 1,750 MG in IV DEXTROSE 5% 500 ML IV SCH ×2
[2017-03-28] MEDS: BACLOFEN 10 MG TABLET GT SCH ×4 (00:44→17:05)
[2017-03-28] MEDS: BLOOD SUGAR DIAGNOSTIC 1 EACH STRIP VI SCH ×4 (00:44→18:00)
[2017-03-28] MEDS: NUTRISOURCE FIBER 4 GM PACKET GT SCH ×3 (05:52→21:38)
[2017-03-28] MEDS: CEFEPIME HCL 1 G in IV DEXTROSE 5% 50 ML IV SCH ×3 (06:02→21:50)
[2017-03-28 08:00] VITALS: BP 108/53
--- NOTE | 2017-03-28 08:20 | NUR ---
RECEIVED ON CONTINUOUS VENT AC 12 VT 450 PEEP 5 FIO2 35%. TRACH IN PLACE AND SECURED WITH TRACH TIE. BACK UP TRACH AND AMBU BAG AT BEDSIDE. SUCTION SMALL AMOUNT THICK PALE YELLOW SECRETIONS. VENT CHECKED, ALARMS WORKING WELL AND AUDIBLE. NO DISTRESS NOTED AT THIS TIME. WILL CONTINUE TO MONITOR.
[2017-03-28] MEDS: HYDROGEN PEROXIDE 3% 118 ML BOTTLE TP SCH ×2 (08:37→20:26)
[2017-03-28] MEDS: COD LIVER OIL/ZINC OXIDE OINT 113 GM TUBE TP SCH (08:38)
[2017-03-28] MEDS: VITAMINS A AND D OINT TP SCH (08:38)
[2017-03-28] MEDS: ACIDOPHILUS/BULGARICUS CHEW TAB GT SCH ×2 (08:38→20:24)
[2017-03-28] MEDS: COD LIVER OIL/ZINC OXIDE OINT 113 GM TUBE TOP SCH ×2 (08:38→20:26)
[2017-03-28] MEDS: LEVETIRACETAM 500 MG/5 ML LIQUID UDC GT SCH ×2 (08:39→20:24)
[2017-03-28] MEDS: POTASSIUM CHLORIDE 20 MEQ TAB.PRT.SR XX SCH ×2 (08:40→17:05)
[2017-03-28] MEDS: PHENOBARBITAL GT SCH ×2 (08:43→20:24)
[2017-03-28] MEDS: INSULIN DETEMIR 300 UNIT/3 ML CARTRIDGE SQ SCH ×2 (08:44→20:25)
[2017-03-28] MEDS: FAMOTIDINE 20 MG TABLET GT SCH ×2 (08:46→20:24)
[2017-03-28] MEDS: FUROSEMIDE 40 MG/4 ML GT SCH ×2 (08:48→20:24)
--- NOTE | 2017-03-28 08:54 | NUR ---
Consent for Ct scan of the abdomen with contrast given by father via telephone.
[2017-03-28] MEDS: IV D5 1/2 NS 1000 ML 1,000 ML IV PRN (10:53)
[2017-03-28] MEDS ORDERED: IV NS 1000 ML 1,000 ML IV ONE (11:00)
--- NOTE | 2017-03-28 12:39 | NUR ---
Seen by Kasey COLLAZO with no new order.
--- NOTE | 2017-03-28 13:15 | NUR ---
Pt. transported to CT-SCAN for abdominal and pelvis exam. pt remain on vent with no incident noted. at 1345 pt transported back to room without incident noted. vent plugged on red outlet. alarms working well and audible.
[2017-03-28] MEDS: SOD FERRIC GLUC COMPLX/SUCROSE 125 MG in IV NORMAL SALINE 100 ML IV SCH (14:37)
[2017-03-28] MEDS: NEOMY/BACITRA/POLYMYXIN B OINT UD PACKET TP SCH ×2 (15:32→20:26)
[2017-03-28] MEDS: [UNRECOGNIZED DRUG - OTHER] GT SCH (20:24)
[2017-03-28] MEDS: CALCIUM CARBONATE 500 MG TAB.CHEW GT SCH (20:24)
[2017-03-28] MEDS: FISH OIL GT SCH (20:24)
[2017-03-28 21:32] VITALS: BP 115/61
[2017-03-29] MEDS: VANCOMYCIN IV 1,750 MG in IV DEXTROSE 5% 500 ML IV SCH ×2
[2017-03-29] MEDS: BACLOFEN 10 MG TABLET GT SCH ×4 (00:12→17:51)
[2017-03-29] MEDS: BLOOD SUGAR DIAGNOSTIC 1 EACH STRIP VI SCH ×4 (00:13→17:51)
--- NOTE | 2017-03-29 04:12 | NUR ---
PT ON CONT HT 50 VENT WITH SHILEY # [address] AND SECURED, WITH SAME CURRENT VENT SETTINGS, PT DOES ASSIST AT TIMES, CHECK CUFF, CHANGE HME, SUCTIONED LIGHT PALE YELL TINGE SECRETIONS, WITH NO VENT CHANGES MADE AT THIS TIME, ALL ALARMS OK, AMBU BAG AT BEDSIDE.Andi CHAKRABORTYP Addendum: 03/29/17 at 0444 by ETHEL FERGUSON RT Amended: Links added.
--- NOTE | 2017-03-29 05:00 | NUR ---
CONTINUE ON IV D51/2NS @ 75ML/HR, CONTINUE ON MAXIPIME IV, BLOOD SUGAR- 132@0500.
[2017-03-29] MEDS: NUTRISOURCE FIBER 4 GM PACKET GT SCH ×3 (05:37→21:15)
[2017-03-29] MEDS: CEFEPIME HCL 1 G in IV DEXTROSE 5% 50 ML IV SCH ×3 (05:41→21:25)
[2017-03-29] MEDS: IV D5 1/2 NS 1000 ML 1,000 ML IV PRN ×2 (05:41→21:09)
[2017-03-29 07:29] LABS: CREATININE 0.9 mg/dL (0.6-1.3); VANCOMYCIN,RANDOM 15.9 ug/mL (18.0-26.0)
[2017-03-29 08:00] VITALS: BP 124/53
--- NOTE | 2017-03-29 08:05 | NUR ---
Pt received on Continuous mechanical ventilation via trach. Pt in semi fowlers position and has limited response to verbal stimuli. Pt is on Taurus HT-50 vent with ordered settings of A/C-12, VT-450, PEEP +5, FIO2-35%. Tolerating vent settings well. SpO2-98%. Sxn'd small amts of yellow secretions. No signs or symptoms of respiratory distress noted. Trach is a Shiley 6 DCT. Minimal leak technique used to assess cuff inflation. Trach is patent and secure. No irritation or redness noted around stoma or trach tie. HME changed. PPE used. Vent alarm parameters checked, on and audible. Vent plugged into red emergency outlet. Bag/valve/mask and back up trach bedside. Will continue to monitor.
[2017-03-29] MEDS: LEVETIRACETAM 500 MG/5 ML LIQUID UDC GT SCH ×2 (08:48→21:09)
[2017-03-29] MEDS: ACIDOPHILUS/BULGARICUS CHEW TAB GT SCH ×2 (08:48→21:08)
[2017-03-29] MEDS: PHENOBARBITAL GT SCH ×2 (08:50→21:09)
[2017-03-29] MEDS: FUROSEMIDE 40 MG/4 ML GT SCH ×2 (08:50→21:09)
[2017-03-29] MEDS: HYDROGEN PEROXIDE 3% 118 ML BOTTLE TP SCH ×2 (08:50→21:14)
[2017-03-29] MEDS: COD LIVER OIL/ZINC OXIDE OINT 113 GM TUBE TP SCH (08:50)
[2017-03-29] MEDS: COD LIVER OIL/ZINC OXIDE OINT 113 GM TUBE TOP SCH ×2 (08:50→21:14)
[2017-03-29] MEDS: FAMOTIDINE 20 MG TABLET GT SCH ×2 (08:50→21:12)
[2017-03-29] MEDS: NEOMY/BACITRA/POLYMYXIN B OINT UD PACKET TP SCH ×2 (08:51→21:15)
[2017-03-29] MEDS: POTASSIUM CHLORIDE 20 MEQ TAB.PRT.SR XX SCH ×2 (08:51→17:51)
[2017-03-29] MEDS: VITAMINS A AND D OINT TP SCH (08:51)
[2017-03-29] MEDS: INSULIN DETEMIR 300 UNIT/3 ML CARTRIDGE SQ SCH ×2 (08:58→21:14)
--- NOTE | 2017-03-29 09:27 | NUR ---
DR. HICKMAN WAS AWARE OF ABDOMEN CT SCAN RESULT AND DR. NESS WAS PAGED AND LEFT A MESSAGE.
--- NOTE | 2017-03-29 09:29 | NUR ---
WAS PAGED RE: RESULT OF CY SCAN OF ABDOMEN.
--- NOTE | 2017-03-29 11:27 | NUR ---
ABDOMINAL CT SCAN RESULT WAS NOTIFIED TO DENISE Mcgarry AND WITH NEW ORDERS CARRIED OUT.
--- NOTE | 2017-03-29 11:43 | NUR ---
NEW ORDER WAS CARRIED OUT FOR RT. AND LT. BUTTOCK FUNGAL RASH FROM DENISE Mcgarry AND COLACE D/C DUE TO CONT. LOOSE STOOL. Addendum: 03/29/17 at 1149 by ERICK REYES RN WRONG ACCOUNT ENTRY PT. DOES NOT HAVE ANY RASH ON BUTTOCKS.
--- NOTE | 2017-03-29 11:49 | NUR ---
MESSAGE LEFT TO DR PIPER TYPE INSPECTOR TO F/U ABD. CT SCAN RESULT FOR UTERINE CERVIX MASS.
[2017-03-29] MEDS: INSULIN REGULAR, HUMAN 300 UNIT/3 ML VIAL SQ PRN ×2 (12:24→17:51)
--- NOTE | 2017-03-29 12:30 | NUR ---
PT. SEEN NAD EXAMINED BY DR. NESS AND HE SPOKE TO PT'S FATHER AND HE WAS IN AGREEMENT WITH PROCEDURE:ULTRASOUND GUIDED LARGE VOLUME PARACENTESIS AND DR. NESS SPOKE TO DR. PIERRE (RADIOLOGIST) AND PT'S FATHER CARIDAD RUIZ GAVE CONSENT BY PHONE TO 2 NURSES.
--- NOTE | 2017-03-29 13:13 | NUR ---
NEW ORDER WAS CARRIED OUT FROM DR. NESS (G.I) FOR STAT LAB WORK DUE TO PROCEDURE SCHEDULE AT 15:[address] PIERRE .
[2017-03-29 13:38] LABS: BASOPHILS % (AUTO) 0.4 % (0.0-2.0); EOSINOPHILS # (AUTO) 0.4 K/uL (0.0-0.7); EOSINOPHILS % (AUTO) 4.3 % (0.0-7.0); HEMATOCRIT 24.7 % (31.2-41.9); HEMOGLOBIN 7.5 g/dL (10.9-14.3); LYMPHOCYTES # (AUTO) 0.8 K/uL (20.0-40.0); LYMPHOCYTES % (AUTO) 8.1 % (20.5-51.5); MEAN CORPUSCULAR HEMOGLOBIN 32.6 uug (24.7-32.8); MEAN CORPUSCULAR HGB CONC 30 g/dL (32.3-35.6); MEAN CORPUSCULAR VOLUME 107.8 fL (75.5-95.3); MONOCYTES # (AUTO) 0.5 K/uL (2.0-10.0); MONOCYTES % (AUTO) 5.1 % (0.0-11.0); NEUTROPHILS # (AUTO) 8.1 K/uL (1.8-8.9); NEUTROPHILS % (AUTO) 82.1 % (38.5-71.5); WHITE BLOOD COUNT (AUTO) 9.9 K/uL (3.8-11.8)
[2017-03-29 13:44] LABS: PLATELET COUNT (AUTO) 138 K/uL (179-408)
[2017-03-29 14:03] LABS: BAND % (MANUAL) 11 % (0-10); EOSINOPHILS % (MANUAL) 5 % (0-8); LYMPHOCYTES % (MANUAL) 10 % (20-40); METAMYELOCYTES % 1 % (0-1); MONOCYTES % (MANUAL) 4 % (2-10); NEUTROPHILS % (MANUAL) 69 % (42-75)
--- NOTE | 2017-03-29 14:50 | NUR ---
DR. BARNETT WAS CALLED AND AWARE OF DR. NESS'S ORDERS AND IN AGREEMENT AND ORDER WAS CLARIFIED.
--- NOTE | 2017-03-29 14:50 | NUR ---
SEEN BY DR VICK FULLER.
--- NOTE | 2017-03-29 15:18 | NUR ---
([facility]) CALLED BACK AND STATED THAT WILL SEE PT. LATER ON TODAY.
--- NOTE | 2017-03-29 16:05 | NUR ---
MESSAGE LEFT TO DR. RIGO GAONA FOR CONSULTATION.
--- NOTE | 2017-03-29 17:10 | NUR ---
PT. WAS SEEN BY DR. XIONG AND AWARE OF FINDINGSPOKE TO PT'S FATHER AND WITH NNO AND STATED THAT SHE WILL SPEAK TO THE OTHERS DOCTORS TOO .
--- NOTE | 2017-03-29 19:00 | NUR ---
ENDORSE TO NOC SHIFT CH. NURSE THAT MR. RAO WILL TALK TO RADIOLOGIST TO FIND OUT WHERE PARACENTESIS WILL BE DONE .
--- NOTE | 2017-03-29 19:34 | NUR ---
message was left to [facility] pharmacist re:vancomycin random 15.7
[2017-03-29 20:05] VITALS: BP 115/64
--- NOTE | 2017-03-29 20:34 | NUR ---
PT ON CONT HT 50 VENT WITH SHILEY # [address] AND SECURED, WITH SAME CURRENT VENT SETTINGS, PT DOES ASSIST AT TIMES, WITH GOOD COUGH EFFORT,SUCTIONED LIGHT PALE YELL TINGE SECRETIONS, AND SUCTION MOUTH WITH KARINA HALEY, ALL ALARMS OK, AMBU BAG AT BEDSIDE, PIP 40CM APPROX, NO VENT CHANGES MADE AT THIS TIME, PT STABLE AT THIS TIME, CHANGE HME AND CHECK CUFF. Andi CHAKRABORTYP Addendum: 03/29/17 at 2035 by ETHEL FERGUSON RT Amended: Links added.
[2017-03-29] MEDS: FISH OIL GT SCH (21:09)
[2017-03-29] MEDS: [UNRECOGNIZED DRUG - OTHER] GT SCH (21:09)
[2017-03-29] MEDS: CALCIUM CARBONATE 500 MG TAB.CHEW GT SCH (21:12)
[2017-03-30] MEDS: VANCOMYCIN IV 1,750 MG in IV DEXTROSE 5% 500 ML IV SCH ×2
[2017-03-30] MEDS: BACLOFEN 10 MG TABLET GT SCH ×4 (00:19→17:17)
[2017-03-30] MEDS: BLOOD SUGAR DIAGNOSTIC 1 EACH STRIP VI SCH ×4 (00:19→17:17)
[2017-03-30] MEDS: NUTRISOURCE FIBER 4 GM PACKET GT SCH ×3 (05:27→21:52)
[2017-03-30] MEDS: CEFEPIME HCL 1 G in IV DEXTROSE 5% 50 ML IV SCH ×3 (05:49→22:05)
[2017-03-30] MEDS: ACIDOPHILUS/BULGARICUS CHEW TAB GT SCH ×2 (08:39→21:52)
[2017-03-30] MEDS: FUROSEMIDE 40 MG/4 ML GT SCH ×2 (08:40→21:54)
[2017-03-30] MEDS: PHENOBARBITAL GT SCH ×2 (08:40→21:54)
[2017-03-30] MEDS: LEVETIRACETAM 500 MG/5 ML LIQUID UDC GT SCH ×2 (08:40→21:52)
[2017-03-30] MEDS: POTASSIUM CHLORIDE 20 MEQ TAB.PRT.SR XX SCH ×2 (08:41→17:17)
[2017-03-30] MEDS: COD LIVER OIL/ZINC OXIDE OINT 113 GM TUBE TP SCH (08:41)
[2017-03-30] MEDS: NEOMY/BACITRA/POLYMYXIN B OINT UD PACKET TP SCH ×2 (08:41→21:52)
[2017-03-30] MEDS: FAMOTIDINE 20 MG TABLET GT SCH ×2 (08:41→21:54)
[2017-03-30] MEDS: HYDROGEN PEROXIDE 3% 118 ML BOTTLE TP SCH ×2 (08:41→21:52)
[2017-03-30] MEDS: COD LIVER OIL/ZINC OXIDE OINT 113 GM TUBE TOP SCH ×2 (08:41→21:52)
[2017-03-30] MEDS: VITAMINS A AND D OINT TP SCH (08:41)
[2017-03-30] MEDS: INSULIN DETEMIR 300 UNIT/3 ML CARTRIDGE SQ SCH ×2 (08:42→21:52)
[2017-03-30] MEDS: INSULIN REGULAR, HUMAN 300 UNIT/3 ML VIAL SQ PRN ×2 (12:57→17:18)
--- NOTE | 2017-03-30 14:10 | NUR ---
Received patient in stable condition with no acute distress at 0700. vital sign BP 91/49 pulse 67 temp. 97.5, SPO2 98%, Resp 12. continue on ventilator with vent setting functioning properly. Left for Recovery department for ultrasound guided large Paracentesis accompanied by RT, RN and a windows technical specialist.
--- NOTE | 2017-03-30 15:20 | NUR ---
Patient returned fro Recovery Department S/P Ultrasound guided large volume paracentesis. 6.3 liters of ascites fluid was removed. No distress noted. Vital sign BP 96/49 pulse 69 Resp. 12, temp. 97.1. Paracentesis site at mid low abdomen noted with bandage in place, no bleeding, and no linkage noted. will continue to monitor.
[2017-03-30] MEDS ORDERED: ALBUMIN HUMAN 25% 100 ML IV ONE (16:30)
--- NOTE | 2017-03-30 18:03 | NUR ---
Albumin 25%, 100ml IV given as ordered, Patient tolerated it well. Vitals BP 98/53, pulse 72 Resp 12, temp. 97.6. G-tube feeding reassumed as ordered.
--- NOTE | 2017-03-30 20:26 | NUR ---
Received pt trached with Aleisha#6 DCT trach, which is in the place and secure, on HT-50 vent with the following settings of AC-12, Vt-450, PEEP+5, FIO2-35%. No distress noted. Airway care done, pt responded to physical stimuli. HME changed. Resus. bag and back up trach at bedside. Vent and alarms checked and reset.
[2017-03-30 20:30] VITALS: BP 80/44
--- NOTE | 2017-03-30 20:30 | NUR ---
Received patient in bed, temp is 94.5 MS: 64 RR: 12 B/P: 80/44 02 sat 94% ,no signs of any respiratory distress, extremities are cold, applied warm blankets to patient, called Dr. Jorgensen but Dr. Mckeon group was medical sales consultant, Spoke with Dr. Seth (medical sales consultant) with new order for 0.9NS 250 ml IV bolus X 1 for low BP and to apply jeannette hugger for temp 95 and below for low temperature, noted and carried out.Kept patient clean and comfortable, will continue monitor.
[2017-03-30] MEDS ORDERED: IV NORMAL SALINE 1000 ML BAG IV ONE (21:30)
[2017-03-30] MEDS: [UNRECOGNIZED DRUG - OTHER] GT SCH (21:54)
[2017-03-30] MEDS: FISH OIL GT SCH (21:54)
[2017-03-30] MEDS: CALCIUM CARBONATE 500 MG TAB.CHEW GT SCH (21:54)
[2017-03-30 22:00] VITALS: BP 92/52
--- NOTE | 2017-03-30 22:00 | NUR ---
Rechecked vital signs and temperature:95.8 WA: 63 RR:12 B/P: 92/52 02sat 96%, Pain 0/10, no respiratory distress noted, on jeannette hugger, kept clean and comfortable.
[2017-03-30 23:00] VITALS: BP 90/52
--- NOTE | 2017-03-30 23:00 | NUR ---
Temperature: 97.4 RR:12 SD: 64 B/P: 90/52 , Pain 0/10 no re
--- NOTE | 2017-03-30 23:05 | NUR ---
Sleeping in bed, no respiratory distress noted, skin warm to touch, dressing intact from paracentesis site, no signs of any distress, kept clean and comfortable.
[2017-03-31] MEDS: BACLOFEN 10 MG TABLET GT SCH ×4 (00:08→18:00)
[2017-03-31] MEDS: BLOOD SUGAR DIAGNOSTIC 1 EACH STRIP VI SCH ×4 (00:08→18:00)
[2017-03-31 01:00] VITALS: BP 92/50
[2017-03-31 04:00] VITALS: BP 98/47
[2017-03-31] MEDS: NUTRISOURCE FIBER 4 GM PACKET GT SCH ×2 (05:43→14:00)
[2017-03-31 06:00] VITALS: BP 99/53
[2017-03-31] MEDS: CEFEPIME HCL 1 G in IV DEXTROSE 5% 50 ML IV SCH (06:45)
--- NOTE | 2017-03-31 06:48 | NUR ---
patient in bed, no signs of any distress noted, changed and repositioned, abdomen soft to touch , s/p paracentesis, no bleeding or drainage from site, dressing is intact, handled very gently, kept clean and comfortable. afebrile, temperature is 97.1, B/P :96/45 SD: 68 RR:12 02 sat 97%, kept clean and comfortable.
[2017-03-31 08:03] VITALS: BP 99/65
[2017-03-31] MEDS ORDERED: DIABETICSOURCE AC 1000ML LIQUID GT PRN (08:15)
--- NOTE | 2017-03-31 08:50 | NUR ---
DR. BARNETT WAS CALLED BUT NOT GAGE DESIGNER INSTEAD DR. GALEAS WAS PAGED RE; B/P 85/45 (H.R 65X',RR 20X',O2 SAT 100%,P/A0/10,TEMP. [address] F)[address] DR[address] HERBERT WAS PAGED TOO RE: STOPPING DATE FOR IV ATB.
[2017-03-31] MEDS: PHENOBARBITAL GT SCH (09:00)
[2017-03-31] MEDS ORDERED: VANCOMYCIN IV 1,500 MG in IV DEXTROSE 5% 500 ML IV SCH (09:00)
[2017-03-31] MEDS: NEOMY/BACITRA/POLYMYXIN B OINT UD PACKET TP SCH (09:00)
[2017-03-31] MEDS: HYDROGEN PEROXIDE 3% 118 ML BOTTLE TP SCH (09:00)
[2017-03-31] MEDS: VITAMINS A AND D OINT TP SCH (09:00)
[2017-03-31] MEDS: INSULIN DETEMIR 300 UNIT/3 ML CARTRIDGE SQ SCH (09:00)
[2017-03-31] MEDS: POTASSIUM CHLORIDE 20 MEQ TAB.PRT.SR XX SCH ×2 (09:30→17:00)
[2017-03-31] MEDS: LEVETIRACETAM 500 MG/5 ML LIQUID UDC GT SCH (09:30)
[2017-03-31] MEDS: COD LIVER OIL/ZINC OXIDE OINT 113 GM TUBE TP SCH (09:30)
[2017-03-31] MEDS: FAMOTIDINE 20 MG TABLET GT SCH (09:30)
[2017-03-31] MEDS: COD LIVER OIL/ZINC OXIDE OINT 113 GM TUBE TOP SCH (09:30)
[2017-03-31] MEDS: FUROSEMIDE 40 MG/4 ML GT SCH (09:30)
[2017-03-31] MEDS: ACIDOPHILUS/BULGARICUS CHEW TAB GT SCH (09:30)
[2017-03-31] MEDS ORDERED: IV NORMAL SALINE 500 ML IV ONE (11:00)
--- NOTE | 2017-03-31 12:18 | NUR ---
DR. PAVON WAS PAGED AGAIN D/T RECURRENT LOW B/P 88/45 AND CH. NURSE SPOKE TO PT'S FATHER AND HE IS AWARE OF RECURRENT HYPOTENSION AND CURRENT TX'S AND IN AGREEMENT BUT O.K WITH TRANSFER TO ER. IF NEEDED.
[2017-03-31 12:37] LABS: BASOPHILS % (AUTO) 0.4 % (0.0-2.0); EOSINOPHILS # (AUTO) 0.3 K/uL (0.0-0.7); EOSINOPHILS % (AUTO) 6.2 % (0.0-7.0); LYMPHOCYTES # (AUTO) 1.1 K/uL (20.0-40.0); LYMPHOCYTES % (AUTO) 20.3 % (20.5-51.5); MEAN CORPUSCULAR HEMOGLOBIN 32.8 uug (24.7-32.8); MEAN CORPUSCULAR HGB CONC 30 g/dL (32.3-35.6); MEAN CORPUSCULAR VOLUME 110.3 fL (75.5-95.3); MONOCYTES # (AUTO) 0.3 K/uL (2.0-10.0); MONOCYTES % (AUTO) 6.5 % (0.0-11.0); NEUTROPHILS # (AUTO) 3.5 K/uL (1.8-8.9); NEUTROPHILS % (AUTO) 66.6 % (38.5-71.5)
[2017-03-31 12:55] LABS: BILIRUBIN,TOTAL 0.4 mg/dL (0.2-1.0); CREATININE 1.1 mg/dL (0.6-1.3); MAGNESIUM 2.3 mg/dL (1.8-2.4); PHOSPHOROUS 2.8 mg/dL (2.5-4.9); POTASSIUM 3.4 mmol/L (3.5-5.1)
--- NOTE | 2017-03-31 13:03 | NUR ---
DR. HICKMAN WAS PAGED HGB 7.1 AND HCT 23.1.
[2017-03-31 13:05] LABS: HEMOGLOBIN 7.1 g/dL (10.9-14.3)
--- NOTE | 2017-03-31 13:05 | NUR ---
DR. PAVON WAS PAGED AGAIN .
[2017-03-31 13:06] LABS: HEMATOCRIT 23.9 % (31.2-41.9); RED BLOOD CELL COUNT(AUTO) 2.17 MIL/uL (3.63-4.92); WHITE BLOOD COUNT (AUTO) 5.2 K/uL (3.8-11.8)
[2017-03-31 13:07] LABS: PLATELET COUNT (AUTO) 90 K/uL (179-408)
--- NOTE | 2017-03-31 13:49 | NUR ---
DR. PAVON CALLED AND AWARE OF LAB RESULTS HGB 7.1 AND HCT 23.9 AND SERUM POTASSIUM 3.4 AND NA 149 AND LATEST B/P 73/31 AND O2 SAT 99% ,HR 64X; ,SKIN DRY AND WARM TO TOUCH AND EDEMATOUS AND URINE OUTPUT 250ML CLEAR URINE AND HE WAS CISNEROS THAT PT.HAD PARACENTESIS YESTERDAY AND IT WAS REMOVED 6.1L AND ABOUT PREVIOUS HYPOTENSION EPISODES LAST NOC TREATED WITH IV BOLUS NSS . AND P/A 0/[address] RICO WAS AWARE OF ADVANCED DIRECTIVES FOR DNR BUT O.K TRANSFER AND PT'S FATHER WISHES FOR TRANSFER AND WITH NEW ORDER CARRIED OUT FOR TRANSFER TO E. TO BE EVALUATED AND .ER. NURSE [place] WAS CALLED AND GIVEN REPORT AND ALSO NURSING MANAGER [employer] WAS NOTIFIED ABOUT TRANSFER AND ALSO PT'S FATHER WAS NOTIFIED AND IN AGREEMENT.P[facility]IATRIST ORTHOPEDIC IAL WAS ALSO NOTIFIED AND REMAINS WITH ORDER FOR BED HOLD FOR 7 DAYS.[facility] WERE ALSO AWARE OF PT. TRANSFER.
--- NOTE | 2017-03-31 13:50 | NUR ---
PT. WAS TRANSFERRED WITH 2 RT'S AT BEDSIDE TO TO ER AT THIS TIME AND REPORT WAS GIVEN IN PERSON AGAIN TO NURSE IBRAHIM.
[2017-03-31] MEDS ORDERED: HYDR-3974 GT (14:20)
[2017-03-31] MEDS ORDERED: INSU100V10 SQ ×2 (14:20)
[2017-03-31] MEDS ORDERED: NEOM15OI3 TP (14:20)
[2017-03-31] MEDS ORDERED: CEFE1VIA7 IM (14:20)
[2017-03-31] MEDS ORDERED: DEXT50VI3 IV (14:20)
[2017-03-31] MEDS ORDERED: LEVE100S GT (14:20)
[2017-03-31] MEDS ORDERED: OMEG1600 GT (14:20)
[2017-03-31] MEDS ORDERED: VANCO IV (14:20)
[2017-03-31] MEDS ORDERED: POTA-88 GT ×2 (14:20)
[2017-03-31] MEDS ORDERED: FURO40SO5 GT (14:20)
[2017-03-31] MEDS ORDERED: MUPI22OI2 (14:20)
[2017-03-31] MEDS ORDERED: BLOO-360 IN (14:20)
[2017-03-31] MEDS ORDERED: PETR113O TP (14:20)
[2017-03-31] MEDS ORDERED: FAMO-132 GT (14:20)
[2017-03-31] MEDS ORDERED: ZINC57OI3 TP ×2 (14:20)
[2017-03-31] MEDS ORDERED: VANC1.5P10 IV (14:20)
[2017-03-31 14:24] LABS: BAND % (MANUAL) 10 % (0-10); EOSINOPHILS % (MANUAL) 9 % (0-8); LYMPHOCYTES % (MANUAL) 19 % (20-40); MONOCYTES % (MANUAL) 5 % (2-10); NEUTROPHILS % (MANUAL) 57 % (42-75)
[2017-03-31] MEDS ORDERED: INSU100V28 (18:08)
[2017-03-31] MEDS ORDERED: MUPIROCIN 2% OINT 22 GM TUBE TP SCH (21:00)
== END 2017-03-31 13:50 | disposition short-term general hospital (02) | DRG 207 ==
LOC: SA → UNDOLOA 03-31 13:50
PROVIDERS: ADMIT Internal Medicine; ATTEND Internal Medicine
PROC: 5A1955Z Respiratory Ventilation, Greater than 96 Consecutive Hours (ICD-10-PCS; principal; 2016-07-09)
PROC: 30233N1 Transfusion of Nonautologous Red Blood Cells into Peripheral Vein, Percutaneous Approach (ICD-10-PCS; 2017-02-27)
DX: J96.11 Chronic respiratory failure with hypoxia (principal); D61.818 Other pancytopenia; E87.0 Hyperosmolality and hypernatremia; R53.2 Functional quadriplegia; R18.8 Other ascites; D62 Acute posthemorrhagic anemia; F07.81 Postconcussional syndrome; Z99.11 Dependence on respirator [ventilator] status; L03.811 Cellulitis of head [any part, except face]; K94.22 Gastrostomy infection; L03.311 Cellulitis of abdominal wall; J98.11 Atelectasis; N39.0 Urinary tract infection, site not specified; K74.60 Unspecified cirrhosis of liver; E11.9 Type 2 diabetes mellitus without complications; K75.81 Nonalcoholic steatohepatitis (NASH); Z66 Do not resuscitate; S06.9X0S Unspecified intracranial injury without loss of consciousness, sequela; Z93.1 Gastrostomy status; Z93.0 Tracheostomy status; M95.2 Other acquired deformity of head; S02.0XXS Fracture of vault of skull, sequela; V09.20XS Pedestrian injured in traffic accident involving unspecified motor vehicles, sequela; Z98.2 Presence of cerebrospinal fluid drainage device; Z88.0 Allergy status to penicillin; G40.909 Epilepsy, unspecified, not intractable, without status epilepticus; Z79.4 Long term (current) use of insulin; Z79.899 Other long term (current) drug therapy; E87.6 Hypokalemia; R47.02 Dysphasia; R13.10 Dysphagia, unspecified; Z87.440 Personal history of urinary (tract) infections; E66.9 Obesity, unspecified; Z68.34 Body mass index [BMI] 34.0-34.9, adult; L02.92 Furuncle, unspecified; D50.0 Iron deficiency anemia secondary to blood loss (chronic); Z22.39 Carrier of other specified bacterial diseases; L30.9 Dermatitis, unspecified; J45.909 Unspecified asthma, uncomplicated; G89.29 Other chronic pain; Z87.820 Personal history of traumatic brain injury; B37.2 Candidiasis of skin and nail
CPT/HCPCS: 36415; 71010; 74000; 76700; 76705; 76856; 80184; 82306; 82378; 82746; 82747; 83010; 83021; 83550; 83615; 83735; 84100; 84300; 84520; 85014; 85025; 85610; 85660; 85730; 86850; 86900; 86901; 86920; 87040; 87070; 87077; 87086; 93307; 94003; A4663; C1758; J0692; J0743; J1815; J1940; J2185; J2916; J3370; J3490; J7030; J7060; P9016-BL; P9021; P9047; Q9963

== ENCOUNTER 2016-12-21 09:45 | Day surgery (SDC) | payer MEDICARE, MEDICAID ==
[2016-12-21] MEDS ORDERED: SIMETHICONE 40 MG/0.6 ML 30 ML BOTTLE MC ONE (09:46)
[2016-12-21] MEDS ORDERED: LIDOCAINE HCL 1% 20 ML VIAL MC ONE (09:46)
[2016-12-21] MEDS ORDERED: PROPOFOL 200 MG/20 ML BOTTLE IV ONE (09:46)
[2016-12-21] MEDS ORDERED: IV LACTATED RINGERS SOLUTION 1,000 ML BAG IV ONE (09:46)
--- NOTE | 2016-12-21 10:30 | NUR ---
TRANSPORTED PATIENT DOWN TO OR FOR PROCEDURE AT 0950 WITH HT-50 VENT (AMBU BAG AND BACK UP TRACH BY BEDSIDE.) AFTER PROCEDURE, TRANSPORTED PATIENT TO RECOVERY AT 1028. NO COMPLICATIONS DURING TRANSPORT. NO VENT CHANGES. SPO2 100%.
== END 2016-12-21 11:05 | disposition still patient (30) ==
LOC: DS 09:45
PROVIDERS: ATTEND Internal Medicine Gastroenterology
DX: K94.23 Gastrostomy malfunction (principal); K31.7 Polyp of stomach and duodenum; R00.0 Tachycardia, unspecified; E11.9 Type 2 diabetes mellitus without complications; E66.9 Obesity, unspecified; G40.909 Epilepsy, unspecified, not intractable, without status epilepticus; J45.909 Unspecified asthma, uncomplicated; K21.9 Gastro-esophageal reflux disease without esophagitis; D69.6 Thrombocytopenia, unspecified; E64.9 Sequelae of unspecified nutritional deficiency; Z93.0 Tracheostomy status
CPT/HCPCS: 49440; A4217; J3490; J7120

== ENCOUNTER 2017-03-06 09:00 | Day surgery (SDC) | payer MEDICARE, MEDICAID ==
[2017-03-06] MEDS ORDERED: IRR STERIL WATER FOR IRR 1000 ML BOTTLE IR ONE (09:01)
[2017-03-06] MEDS ORDERED: PROPOFOL 200 MG/20 ML BOTTLE IV ONE (09:01)
[2017-03-06] MEDS ORDERED: LIDOCAINE HCL 1% 20 ML VIAL MC ONE (09:01)
[2017-03-06] MEDS ORDERED: IV NORMAL SALINE 1000 ML BAG IV ONE (09:01)
== END 2017-03-06 09:20 ==
LOC: DS 09:00
PROVIDERS: ATTEND Internal Medicine Gastroenterology
DX: K29.70 Gastritis, unspecified, without bleeding (principal); D64.9 Anemia, unspecified; E11.9 Type 2 diabetes mellitus without complications; Z88.8 Allergy status to other drugs, medicaments and biological substances; Z88.0 Allergy status to penicillin
CPT/HCPCS: 43239; 43246; A4217 ×2; J3490 ×2; J7030; 43235

== ENCOUNTER 2017-03-28 08:50 | Outpatient (CLI) | payer MEDICARE, MEDICAID | END 2017-03-28 23:59 | disposition home or self-care (01) | LOC: RAD 08:50 | PROVIDERS: ATTEND Internal Medicine | DX: R16.1 Splenomegaly, not elsewhere classified (principal); R18.8 Other ascites; J90 Pleural effusion, not elsewhere classified; J98.11 Atelectasis; R59.0 Localized enlarged lymph nodes; K74.60 Unspecified cirrhosis of liver; Z98.2 Presence of cerebrospinal fluid drainage device | CPT/HCPCS: 74177; J7050; Q9963; Q9967 ==

== ENCOUNTER 2017-03-30 08:22 | Outpatient (CLI) | payer MEDICARE, MEDICAID ==
[2017-03-31] MEDS ORDERED: NEOM15OI3 TP (14:20)
[2017-03-31] MEDS ORDERED: LEVE100S GT (14:20)
[2017-03-31] MEDS ORDERED: DEXT50VI3 IV (14:20)
[2017-03-31] MEDS ORDERED: HYDR-3974 GT (14:20)
[2017-03-31] MEDS ORDERED: INSU100V10 SQ ×2 (14:20)
[2017-03-31] MEDS ORDERED: ZINC57OI3 TP ×2 (14:20)
[2017-03-31] MEDS ORDERED: VANC1.5P10 IV (14:20)
[2017-03-31] MEDS ORDERED: FURO40SO5 GT (14:20)
[2017-03-31] MEDS ORDERED: PETR113O TP (14:20)
[2017-03-31] MEDS ORDERED: OMEG1600 GT (14:20)
[2017-03-31] MEDS ORDERED: MUPI22OI2 (14:20)
[2017-03-31] MEDS ORDERED: BLOO-360 IN (14:20)
[2017-03-31] MEDS ORDERED: POTA-88 GT ×2 (14:20)
[2017-03-31] MEDS ORDERED: FAMO-132 GT (14:20)
[2017-03-31] MEDS ORDERED: CEFE1VIA7 IM (14:20)
[2017-03-31] MEDS ORDERED: VANCO IV (14:20)
[2017-03-31] MEDS ORDERED: INSU100V28 (18:08)
== END 2017-03-30 23:59 | disposition home or self-care (01) ==
LOC: RAD 08:22
PROVIDERS: ATTEND Internal Medicine
DX: R18.8 Other ascites (principal)
CPT/HCPCS: 49083; A4663; J7050 ×2; J7030

== ENCOUNTER 2017-03-31 13:43 | Inpatient (IN) | payer MEDICARE, MEDICAID ==
[~2017-03-31] VITALS: Ht 165.1 cm; Wt 114.3 kg
[2017-03-31] VITALS (9 sets, daily range): BP systolic 83–164; BP diastolic 44–78
[2017-03-31] MEDS ORDERED: IV NORMAL SALINE 1000 ML BAG IV ONE (14:15)
[2017-03-31] MEDS ORDERED: FURO40SO5 GT (14:20)
[2017-03-31] MEDS ORDERED: INSU100V10 SQ ×2 (14:20)
[2017-03-31] MEDS ORDERED: POTA-88 GT ×2 (14:20)
[2017-03-31] MEDS ORDERED: OMEG1600 GT (14:20)
[2017-03-31] MEDS ORDERED: PETR113O TP (14:20)
[2017-03-31] MEDS ORDERED: HYDR-3974 GT (14:20)
[2017-03-31] MEDS ORDERED: VANCO IV (14:20)
[2017-03-31] MEDS ORDERED: DEXT50VI3 IV (14:20)
[2017-03-31] MEDS ORDERED: MUPI22OI2 (14:20)
[2017-03-31] MEDS ORDERED: CEFE1VIA7 IM (14:20)
[2017-03-31] MEDS ORDERED: LEVE100S GT (14:20)
[2017-03-31] MEDS ORDERED: NEOM15OI3 TP (14:20)
[2017-03-31] MEDS ORDERED: ZINC57OI3 TP ×2 (14:20)
[2017-03-31] MEDS ORDERED: VANC1.5P10 IV (14:20)
[2017-03-31] MEDS ORDERED: BLOO-360 IN (14:20)
[2017-03-31] MEDS ORDERED: FAMO-132 GT (14:20)
[2017-03-31 14:44] LABS: *BILIRUBIN,URIN NEGATIVE (NEGATIVE); *BLOOD, URINE 3+ (NEGATIVE); *CLARITY,URINE SLIGHTLY CLOUDY (CLEAR); *COLOR,URINE YELLOW (YELLOW); *KETONES,URINE NEGATIVE (NEGATIVE); *PROTEIN,URINE 2+ (NEGATIVE); *UROBILINOGEN,URINE 0.2 E.U./dl (NORMAL); LEUKOCYTE ESTERASE ,URINE TRACE (NEGATIVE); NITRITE, URINE NEGATIVE (NEGATIVE); UGLUCOSE NEGATIVE (NEGATIVE)
[2017-03-31] MEDS ORDERED: AZITHROMYCIN IV 500 MG in IV DEXTROSE 5% 250 ML IV ONE (14:45)
[2017-03-31] MEDS ORDERED: AZTREONAM 2 G in IV NORMAL SALINE 100 ML IV SCH (14:45)
[2017-03-31 14:47] LABS: CREATININE 1.1 mg/dL (0.6-1.3); POTASSIUM 3.6 mmol/L (3.5-5.1)
[2017-03-31 14:49] LABS: BASOPHILS % (AUTO) 0.2 % (0.0-2.0); EOSINOPHILS # (AUTO) 0.4 K/uL (0.0-0.7); EOSINOPHILS % (AUTO) 7.2 % (0.0-7.0); LYMPHOCYTES # (AUTO) 1.1 K/UL (0.8-4.8); LYMPHOCYTES % (AUTO) 19.9 % (20.5-51.5); MEAN CORPUSCULAR HEMOGLOBIN 32.2 UUG (27.0-31.0); MEAN CORPUSCULAR HGB CONC 30 g/dL (32.0-37.0); MEAN CORPUSCULAR VOLUME 107.7 FL (81.0-99.0); MONOCYTES # (AUTO) 0.2 K/UL (0.1-1.30); MONOCYTES % (AUTO) 4.4 % (0.0-11.0); NEUTROPHILS % (AUTO) 68.3 % (38.5-71.5); PLATELET COUNT (AUTO) 107 K/UL (150-450); WHITE BLOOD COUNT (AUTO) 5.7 K/UL (4.0-11.2)
[2017-03-31 14:52] LABS: HEMATOCRIT 22.5 % (37-47); HEMOGLOBIN 6.7 G/DL (12.0-16.0)
[2017-03-31] MEDS ORDERED: AZTREONAM 1 G VIAL ONE (14:55)
[2017-03-31 15:00] LABS: BILIRUBIN,DIRECT 0.1 mg/dL (0.0-0.2); BILIRUBIN,TOTAL 0.4 mg/dL (0.2-1.0); TOTAL PROTEIN, SERUM 7.2 g/dL (6.4-8.2)
[2017-03-31] MEDS ORDERED: AZITHROMYCIN 500 MG VIAL IV ONE (15:01)
--- NOTE | 2017-03-31 15:10 | NUR ---
SBAR Report received from Robert XIONG.
[2017-03-31 15:14] LABS: BACTERIA,URINE FEW /HPF (NONE SEEN); RBC,URINE 20-50 /HPF (0-3); SQUAMOUS EPITHELIAL CELL,UR FEW /HPF (NONE SEEN); YEAST,URINE MODERATE /HPF (NONE SEEN)
[2017-03-31 15:15] LABS: MUCUS,URINE MANY /LPF (0-FEW)
--- NOTE | 2017-03-31 15:21 | NUR ---
rt at bedside suctioning the pt. top closer at bedside for blood draw
--- NOTE | 2017-03-31 15:30 | NUR ---
called dr. cunningham to admit the pt.
--- NOTE | 2017-03-31 15:55 | NUR ---
pt transfered to ccu as rodney status per jewelry department supervisor
--- NOTE | 2017-03-31 16:00 | NUR ---
admitted from ED 66 yr old female to CCU as HALEY admit. patient is comatose, tracheally intubated to vent TV 450. ac 12 fio2 35% peep 5c. dx sepsis and pneumonia. had fluid bolus 3500ml in ED. call to dr cunningham for admission orders. lee catheter intact with good urine output. patient is edematous and contracted. has no good peripheral IV access. will put in a PICC line also patient needs blood transfusion for anemia yeison. ekg is sinus rhythm BP stable at present Addendum: 03/31/17 at 1837 by IVELISSE BAILEY RN Amended: Links added.
[2017-03-31 16:12] LABS: NEUTROPHILS % (MANUAL) 56 % (42-75)
[2017-03-31 16:13] LABS: BAND % (MANUAL) 16 % (0-10); EOSINOPHILS % (MANUAL) 6 % (0-8); LYMPHOCYTES % (MANUAL) 18 % (20-40); MONOCYTES % (MANUAL) 4 % (2-10)
--- NOTE | 2017-03-31 16:24 | NUR ---
Patient transferred from subacute to ccu due to hypotensive lab value reviewed 03/31 RBC-2.10,HGB/HCT-6.7/22.5(L/L),NA-151(H),GLUCOSE 99,BUN-28 currently NPO At subacute unit patient was on Diabetisource @45ml/hr x 22 hrs. If medically feasible and TF is planned then will rec initiate TF Diabetisource at lower rate and advance [id number] to goal rate of Diabetisource 45ml/hr x 22 hrs. water flushes per MD. Full nutrition assessment will be per schedule policy Addendum: 03/31/17 at [address] Amended: Links added.
[2017-03-31] MEDS ORDERED: NORMAL SALINE FLUSH 10 ML DISP.SYRIN IV PRN (16:30)
[2017-03-31] MEDS ORDERED: DIABETICSOURCE AC 1000ML LIQUID GT PRN ×2 (17:00→17:06)
--- NOTE | 2017-03-31 17:30 | NUR ---
fluid reassessment done. dr cunningham informed. no further fluid therapy needed Addendum: 03/31/17 at 1859 by IVELISSE BAILEY RN Amended: Links added.
[2017-03-31] MEDS ORDERED: INSU100V28 (18:08)
--- NOTE | 2017-03-31 18:29 | NUR ---
blood transfusion 1 unit started via right foot #22 IV site. pending PICC line insertion Addendum: 03/31/17 at 1829 by IVELISSE BAILEY RN Amended: Links added.
[2017-03-31] MEDS ORDERED: DEXTROSE 50% 50 ML DISP.SYRIN IV PRN (18:30)
[2017-03-31] MEDS ORDERED: ACETAMINOPHEN 650 MG/20.3 ML LIQUID UDC GT PRN ×2 (18:30)
--- NOTE | 2017-03-31 19:15 | NUR ---
CALLED DR AYERS FOR CONSULT W/ ORDERS.
--- NOTE | 2017-03-31 19:20 | NUR ---
report given to Ulysses Addendum: 03/31/17 at 1923 by IVELISSE BAILEY RN Amended: Links added.
--- NOTE | 2017-03-31 19:35 | NUR ---
RECEIVED ON CONTINUOUS VENT AC 12 VT 450 PEEP 5 FIO2 35% . TRACH IN PLACE AND SECURED. SUCTION SMALL AMOUNT THIN WHITE SECRETIONS. VENT CHECKED, ALARMS WORKING WELL AND AUDIBLE. NO DISTRESS NOTED AT THIS TIME. WILL CONTINUE TO MONITOR.
[2017-03-31] MEDS: BLOOD SUGAR DIAGNOSTIC 1 EACH STRIP VI SCH (19:53)
[2017-03-31] MEDS: ACIDOPHILUS/BULGARICUS CHEW TAB GT SCH (19:57)
--- NOTE | 2017-03-31 20:00 | NUR ---
RECEIVED PT OBTUNDED RESPONDING TO NOXIOUS STIMULI. TRACH TO VENT W/ SETTINGS OF AC-12, TV-450, FIO2-35%, PEEP-+5, W/ O2 SAT OF 100%. SUCTIONED VIA TRACH & ORALLY W/ FROTHY MINIMAL WHITISH MUCOUS. PICC LINE ON ELIZABETH JUST INSERTED & X-RAY DONE TO CONFIRM PLACEMENT. G-TUNE INTACT & CLAMPED. BLOOD TRANSFUSION IN PROGRESS. AFEBRILE. SBP ON THE 80S. WATCHED PT. CLOSELY.
[2017-03-31] MEDS: BACLOFEN 10 MG TABLET GT SCH ×2 (20:03→23:20)
[2017-03-31] MEDS: LEVETIRACETAM 500 MG/5 ML LIQUID UDC GT SCH (20:50)
[2017-03-31] MEDS: FAMOTIDINE 20 MG TABLET GT SCH (20:52)
[2017-03-31] MEDS: COD LIVER OIL/ZINC OXIDE OINT 113 GM TUBE TOP PRN ×4 (20:53→21:14)
[2017-03-31] MEDS: MUPIROCIN 2% OINT 22 GM TUBE TP SCH (20:54)
[2017-03-31] MEDS: NEOMY/BACITRAC/POLYMI OINT 28.35 GM TUBE TP SCH (20:54)
[2017-03-31] MEDS ORDERED: IV NS 1000 ML 1,000 ML IV ONE (21:00)
[2017-03-31] MEDS: INSULIN DETEMIR 300 UNIT/3 ML CARTRIDGE SQ SCH (21:00)
[2017-03-31] MEDS ORDERED: MISCELLANEOUS MED GT SCH (21:00)
[2017-03-31] MEDS ORDERED: PHENOBARBITAL 30 MG/7.5 ML LIQUID UDC GT SCH (21:00)
--- NOTE | 2017-03-31 21:00 | NUR ---
HOLD LEVEMIR INSULIN BS-89.
--- NOTE | 2017-03-31 21:00 | NUR ---
DR. RICO CALLED RE: LOW BP W/ ORDER.
[2017-03-31] MEDS: COD LIVER OIL/ZINC OXIDE OINT 113 GM TUBE TOP SCH (21:15)
[2017-03-31] MEDS: LINEZOLID IV 600 MG in PREMIXED 1 EACH IV SCH (21:19)
[2017-03-31] MEDS: NORMAL SALINE FLUSH 10 ML DISP.SYRIN IV SCH (21:55)
[2017-03-31] MEDS: AZTREONAM 1 G in IV NORMAL SALINE 50 ML IV SCH (21:57)
--- NOTE | 2017-03-31 23:00 | NUR ---
HGB-8.9 , ONE HR. AFTER BLODD TRANSSFUSION, NO FURTHER BLOOD TRANSFUSION NEEDED. HOUSE IS OUT . REINSERTED W/ FR.#16 W/ DIFFICULTY, PT IS CONTRACTED.
[2017-03-31 23:29] LABS: HEMATOCRIT 29.8 % (37-47); HEMOGLOBIN 8.9 G/DL (12.0-16.0)
[2017-04-01] VITALS (49 sets, daily range): BP systolic 76–151; BP diastolic 33–80
[2017-04-01] MEDS: BLOOD SUGAR DIAGNOSTIC 1 EACH STRIP VI SCH ×4 (01:04→18:21)
[2017-04-01] MEDS: IV NS 1000 ML 1,000 ML IV PRN ×2 (02:22→14:15)
--- NOTE | 2017-04-01 04:00 | NUR ---
AM CARE DONE. TRACH CARE DONE.CLEANED G-TUBE SITE & COVERED W/ DRSG.
--- NOTE | 2017-04-01 04:41 | NUR ---
G-TUBE FDG REMAINS ON HOLD, HIGH RESIDUAL.
[2017-04-01 05:05] LABS: BASOPHILS % (AUTO) 0.2 % (0.0-2.0); EOSINOPHILS # (AUTO) 0.4 K/uL (0.0-0.7); EOSINOPHILS % (AUTO) 6.7 % (0.0-7.0); HEMATOCRIT 26.3 % (37-47); HEMOGLOBIN 8.3 G/DL (12.0-16.0); LYMPHOCYTES % (AUTO) 15.9 % (20.5-51.5); MEAN CORPUSCULAR HEMOGLOBIN 32.7 UUG (27.0-31.0); MEAN CORPUSCULAR HGB CONC 32 g/dL (32.0-37.0); MEAN CORPUSCULAR VOLUME 103.8 FL (81.0-99.0); MONOCYTES # (AUTO) 0.2 K/UL (0.1-1.30); MONOCYTES % (AUTO) 4.1 % (0.0-11.0); NEUTROPHILS # (AUTO) 4.5 K/UL (1.8-8.9); NEUTROPHILS % (AUTO) 73.1 % (38.5-71.5); PLATELET COUNT (AUTO) 96 K/UL (150-450); RED BLOOD CELL COUNT(AUTO) 2.53 MIL/UL (4.2-5.4); WHITE BLOOD COUNT (AUTO) 6.1 K/UL (4.0-11.2)
[2017-04-01 05:17] LABS: BILIRUBIN,TOTAL 0.8 mg/dL (0.2-1.0); MAGNESIUM 2.1 mg/dL (1.8-2.4); PHOSPHOROUS 3.5 mg/dL (2.5-4.9); POTASSIUM 3.7 mmol/L (3.5-5.1); TOTAL PROTEIN, SERUM 7.2 g/dL (6.4-8.2)
[2017-04-01 05:26] LABS: EOSINOPHILS % (MANUAL) 5 % (0-8); LYMPHOCYTES % (MANUAL) 9 % (20-40); MONOCYTES % (MANUAL) 6 % (2-10); NEUTROPHILS % (MANUAL) 80 % (42-75)
[2017-04-01] MEDS: AZTREONAM 1 G in IV NORMAL SALINE 50 ML IV SCH ×3 (05:50→21:08)
[2017-04-01] MEDS: BACLOFEN 10 MG TABLET GT SCH ×4 (05:50→23:41)
[2017-04-01] MEDS: NORMAL SALINE FLUSH 10 ML DISP.SYRIN IV SCH ×3 (05:51→21:10)
--- NOTE | 2017-04-01 06:42 | NUR ---
CXR DONE,REPOSITIONED ON HER SIDE W/ HOB ELEVATED.
--- NOTE | 2017-04-01 07:30 | NUR ---
REPORT RECEIVED.PT REMAINS COMATOSE,CONTRACTED.GENERALIZED EDEMA NOTED.RESPIRATION EVEN,UNLABORED.TRACH TUBE SHILEY 6 INTACT,CONNECTED TO VENTILATOR.NO SOB NOTED.ABDOMEN DISTENDED.GT FEEDING KEPT ON HOLD DUE TO HIGH RESIDUAL.FC INTACT,PATENT,DRAINING YELLOW COLOR URINE.WILL CONTINUE TO MONITOR.
[2017-04-01] MEDS: FUROSEMIDE 40 MG/5 ML LIQUID UDC GT SCH (08:31)
[2017-04-01] MEDS: POTASSIUM CHLORIDE 20 MEQ POWDER PACKET GT SCH ×2 (08:32→18:09)
[2017-04-01] MEDS: FAMOTIDINE 20 MG TABLET GT SCH ×2 (08:32→21:00)
[2017-04-01] MEDS: ACIDOPHILUS/BULGARICUS CHEW TAB GT SCH ×2 (08:32→18:09)
[2017-04-01] MEDS: CALCIUM CARBONATE 500 MG TAB.CHEW PO SCH (08:32)
[2017-04-01 08:36] LABS: ABG BASE EXCESS -1.7 mmol/L; ABG HCO3 24.5 mmol/L; ABG PCO2 48.4 mmHg (35.0-45.0); ABG PH 7.322 (7.350-7.450); ABG PO2 88.8 mmHg (75.0-100.0); ABG SITE LEFT RADIAL; ABG TOTAL HEMOGLOBIN 8.9 G/dL (12.0-16.0); COHb 3.3 % (0.5-1.5); MetHb 0.5 % (0.0-1.5); O2Hb 93.4 % (94.0-97.0); VENT MODE VENT - A/C; VT, ABG 450 mL
[2017-04-01] MEDS: INSULIN DETEMIR 300 UNIT/3 ML CARTRIDGE SQ SCH ×2 (08:44→21:00)
[2017-04-01] MEDS: MUPIROCIN 2% OINT 22 GM TUBE TP SCH ×2 (08:45→21:07)
[2017-04-01] MEDS: COD LIVER OIL/ZINC OXIDE OINT 113 GM TUBE TOP SCH ×2 (08:45→21:11)
[2017-04-01] MEDS: NEOMY/BACITRAC/POLYMI OINT 28.35 GM TUBE TP SCH ×2 (08:46→21:07)
[2017-04-01] MEDS: VITAMINS A AND D OINT TP SCH (08:46)
[2017-04-01] MEDS: LEVETIRACETAM 500 MG/5 ML LIQUID UDC GT SCH ×2 (08:48→21:00)
[2017-04-01] MEDS: GENTAMICIN SULFATE INJ 120 MG in IV DEXTROSE 5% 100 ML IV SCH ×2 (08:57→22:39)
[2017-04-01] MEDS: LINEZOLID IV 600 MG in PREMIXED 1 EACH IV SCH ×2 (09:00→21:01)
--- NOTE | 2017-04-01 10:00 | NUR ---
SEEN,EXAMINED BY .NEW ORDERS RECEIVED.PERICARE DONE DUE TO LARGE BM.
--- NOTE | 2017-04-01 10:28 | NUR ---
Clinical Pharmacy Note: Gentamicin Dosing per Pharmacy Subjective: Gentamicin IV to start on this 66 yo female patient from subacute as per ID recommendation (waiting for ID notes). Objective: BUN 26/ Scr 1.0 WBC 6.1 Temp 98.1 wt 215 lb ht 65'' Assessment/Plan: Will start gentamicin 120mg IVPB q14hrs today with estimated gentamicin trough of 0.8 & peak of 7 mcg/ml. 1st dose was due today at 0900. Plan to check peak & trough around 3rd dose. Will continue to monitor & follow up
[2017-04-01] MEDS: PHENOBARBITAL 32.4 MG TABLET GT SCH ×2 (10:52→21:00)
--- NOTE | 2017-04-01 12:05 | NUR ---
SEEN,EXAMINED BY WITH NEW ORDERS NOTED.FLEXISEAL INSERTED RECTALLY DUE TO LARGE AMOUNT OF LIQUID STOOL.PERICARE WAS GIVEN.
--- NOTE | 2017-04-01 12:45 | NUR ---
Pt started on Levophed gtt to support BP.
[2017-04-01] MEDS: NOREPINEPHRINE BITARTRATE 8 MG in IV DEXTROSE 5% 500 ML IV PRN ×2 (12:46→21:02)
--- NOTE | 2017-04-01 14:48 | NUR ---
Seen,examined by with new orders noted.
[2017-04-01] MEDS: AZITHROMYCIN IV 500 MG in IV DEXTROSE 5% 250 ML IV SCH (16:15)
--- NOTE | 2017-04-01 18:50 | NUR ---
Pt remains comatose.No s/s of pain,discomfort.Remains on Levophed gtt at 16mcg to support BP.Gt feeding on hold.Turned,repositioned.Complete bath provided.
--- NOTE | 2017-04-01 19:30 | NUR ---
Assumed care of patient, opens eyes but makes no attempt to communicate,CONTINUES on ventilator via trach. ABDOMEN REMAINS DISTENDED AND FIRM..TITRATING LEVOPHED ORDERED.
--- NOTE | 2017-04-01 19:35 | NUR ---
PT RECEIVED ON MEJIA VENT. CURRENT VENT SETTIGNS ARE AC 14 VT 450 PEEP 5 FIO2 35%. NO CHANGES MADE ON VENT AT THIS TIME. VENT CHECK DONE. ALARMS ARE ON AND FUNCTIONING PROPERLY. TRACH IS PATENT AND SECURED WITH TRACH TIES. SUCTION SMALL AMOUNT THIN, WHITE SECRETIONS. HME CHANGED NEEDED. ORAL CARE DONE. VENT IS PLUGGED INTO RED EMERGENCY OUTLET. NO S/S OF RESPIRATORY DISTRESS OBSERVED. WILL CONTINUE TO MONITOR.
[2017-04-01] MEDS: OMEGA-3 FATTY ACIDS/FISH OIL CAPSULE GT SCH (20:59)
[2017-04-01] MEDS: COD LIVER OIL/ZINC OXIDE OINT 113 GM TUBE TOP PRN (21:06)
[2017-04-01] MEDS: METRONIDAZOLE 500 MG/NS 100ML 500 MG in PREMIXED 1 EACH IV SCH (21:08)
[2017-04-01] MEDS: VANCOMYCIN FOR PO/GT/NG USE GT SCH (21:10)
[2017-04-02] VITALS (90 sets, daily range): BP systolic 76–134; BP diastolic 26–77
[2017-04-02] MEDS: BLOOD SUGAR DIAGNOSTIC 1 EACH STRIP VI SCH ×4 (00:30→18:12)
[2017-04-02] MEDS: BACLOFEN 10 MG TABLET GT SCH ×3 (05:06→17:33)
[2017-04-02] MEDS: AZTREONAM 1 G in IV NORMAL SALINE 50 ML IV SCH ×3 (05:06→21:58)
[2017-04-02] MEDS: IV NS 1000 ML 1,000 ML IV PRN ×2 (05:07→20:39)
[2017-04-02] MEDS: METRONIDAZOLE 500 MG/NS 100ML 500 MG in PREMIXED 1 EACH IV SCH ×3 (05:07→21:59)
[2017-04-02] MEDS: VANCOMYCIN FOR PO/GT/NG USE GT SCH ×3 (05:07→17:33)
[2017-04-02] MEDS: NORMAL SALINE FLUSH 10 ML DISP.SYRIN IV SCH ×3 (05:38→22:00)
[2017-04-02 06:26] LABS: BASOPHILS # (AUTO) 0.1 K/uL (0.0-8.0); BASOPHILS % (AUTO) 1.2 % (0.0-2.0); EOSINOPHILS # (AUTO) 0.5 K/uL (0.0-0.7); EOSINOPHILS % (AUTO) 5.6 % (0.0-7.0); HEMOGLOBIN 9.1 G/DL (12.0-16.0); LYMPHOCYTES # (AUTO) 1.1 K/UL (0.8-4.8); LYMPHOCYTES % (AUTO) 13.1 % (20.5-51.5); MEAN CORPUSCULAR HEMOGLOBIN 31.4 UUG (27.0-31.0); MEAN CORPUSCULAR HGB CONC 30 g/dL (32.0-37.0); MEAN CORPUSCULAR VOLUME 103.4 FL (81.0-99.0); MONOCYTES # (AUTO) 0.5 K/UL (0.1-1.30); MONOCYTES % (AUTO) 6.4 % (0.0-11.0); NEUTROPHILS # (AUTO) 5.9 K/UL (1.8-8.9); NEUTROPHILS % (AUTO) 73.7 % (38.5-71.5); PLATELET COUNT (AUTO) 67 K/UL (150-450); WHITE BLOOD COUNT (AUTO) 8.1 K/UL (4.0-11.2)
[2017-04-02] MEDS: NOREPINEPHRINE BITARTRATE 8 MG in IV DEXTROSE 5% 500 ML IV PRN ×3 (06:28→19:19)
--- NOTE | 2017-04-02 07:00 | NUR ---
sbar report received from [facility]. 66yr old comatose female, here in CCU for sepsis, pneumonia. vermin exterminator ventilator dependent, tracheostomy Shiley #6 intact. vent settings ac14, tv 450, fio2 35% and peep 5cm. patient very edematous, lee catheter intact. on lasix daily. gt cellulitis noted positive for mrsa. on contact isolation. GT feeding on hold secondary to high residuals and abd distention. extremeties are flaccid. is quadriplegic.on levophed drip at 20mcg/min. titrated down to sbp>90. main IV fluid NS at 100ml/hr via jessica PICC line Addendum: 04/02/17 at 1109 by IVELISSE BAILEY RN Amended: Links added.
[2017-04-02 07:11] LABS: BILIRUBIN,TOTAL 0.4 mg/dL (0.2-1.0); POTASSIUM 4.9 mmol/L (3.5-5.1); TOTAL PROTEIN, SERUM 7.3 g/dL (6.4-8.2)
--- NOTE | 2017-04-02 07:33 | NUR ---
PT RECEIVED ON MEJIA VENT ON SETTINGS AC 14 VT 450 PEEP 5 FIO2 35%. NO CHANGES MADE ON VENT AT THIS TIME NO MORNING ABG WAS ORDER. PT HME WAS CHANGED PT WAS SUCTION ORAL CARE WAS DONE NO DISTRESS NOTED. PT VENT ALARMS ON AND AUDIBLE. PT HAS NO DISTRESS NOTED. PT AMBU-BAG AND BACK UP TRACH AT BED SIDE. WILL CONTINUE TO MONITOR PT THROUGHOUT SHIFT.
[2017-04-02] MEDS: LINEZOLID IV 600 MG in PREMIXED 1 EACH IV SCH (08:21)
[2017-04-02] MEDS: VITAMINS A AND D OINT TP SCH (08:22)
[2017-04-02] MEDS: LEVETIRACETAM 500 MG/5 ML LIQUID UDC GT SCH ×2 (08:23→20:46)
[2017-04-02] MEDS: FAMOTIDINE 20 MG TABLET GT SCH ×2 (08:28→20:46)
[2017-04-02] MEDS: PHENOBARBITAL 32.4 MG TABLET GT SCH ×2 (08:28→20:46)
[2017-04-02] MEDS: CALCIUM CARBONATE 500 MG TAB.CHEW PO SCH (08:28)
[2017-04-02] MEDS: ACIDOPHILUS/BULGARICUS CHEW TAB GT SCH ×2 (08:28→15:59)
[2017-04-02] MEDS: FUROSEMIDE 40 MG/5 ML LIQUID UDC GT SCH (08:28)
[2017-04-02] MEDS: POTASSIUM CHLORIDE 20 MEQ POWDER PACKET GT SCH ×2 (08:29→15:59)
[2017-04-02] MEDS: INSULIN DETEMIR 300 UNIT/3 ML CARTRIDGE SQ SCH ×2 (08:32→21:58)
[2017-04-02] MEDS: NEOMY/BACITRAC/POLYMI OINT 28.35 GM TUBE TP SCH ×2 (08:39→20:48)
[2017-04-02] MEDS: MUPIROCIN 2% OINT 22 GM TUBE TP SCH ×2 (08:39→20:49)
[2017-04-02] MEDS: COD LIVER OIL/ZINC OXIDE OINT 113 GM TUBE TOP PRN ×5 (08:39→20:49)
[2017-04-02 08:48] LABS: PHOSPHOROUS 3.2 mg/dL (2.5-4.9)
[2017-04-02] MEDS: COD LIVER OIL/ZINC OXIDE OINT 113 GM TUBE TOP SCH ×2 (08:49→21:41)
--- NOTE | 2017-04-02 10:00 | NUR ---
family member (father)Paolo called to find out conditionof the patient. Addendum: 04/02/17 at 1730 by IVELISSE BAILEY RN Amended: Links added.
[2017-04-02 10:27] LABS: BAND % (MANUAL) 3 % (0-10); BASOPHILS % (MANUAL) 0 % (0-2); EOSINOPHILS % (MANUAL) 11 % (0-8); LYMPHOCYTES % (MANUAL) 6 % (20-40); MONOCYTES % (MANUAL) 5 % (2-10); NEUTROPHILS % (MANUAL) 75 % (42-75)
--- NOTE | 2017-04-02 12:00 | NUR ---
remains off tube fdg. gt residual was 400ml at noon time. abd remains distended with generalized edema. Addendum: 04/02/17 at 1717 by IVELISSE BAILEY RN Amended: Links added. Addendum: 04/02/17 at 1718 by IVELISSE BAILEY RN Amended: Links added. Addendum: 04/02/17 at 1720 by IVELISSE BAILEY RN Amended: Links added. Addendum: 04/02/17 at 1721 by IVELISSE BAILEY RN Amended: Ирина added. Addendum: 04/02/17 at 1723 by IVELISSE BAILEY RN Amended: Links added. Addendum: 04/02/17 at 1723 by IVELISSE BAILEY RN Amended: Links added.
--- NOTE | 2017-04-02 12:00 | NUR ---
warming measure done because of temp 94.6 orally. jeannette woods dcd at 1200. temp 97.7 Addendum: 04/02/17 at 1723 by IVELISSE BAILEY RN Amended: Links added. Addendum: 04/02/17 at 1723 by IVELISSE BAILEY RN Amended: Links added.
--- NOTE | 2017-04-02 12:15 | NUR ---
maricarmen 113, no coverage needed Addendum: 04/02/17 at 1241 by IVELISSE BAILEY RN Amended: Links added.
--- NOTE | 2017-04-02 12:30 | NUR ---
dr shah aware of pat's respiratory status. no abgs and chest xray ordered for today Addendum: 04/02/17 at 1724 by IVELISSE BAILEY RN Amended: Links added. Addendum: 04/02/17 at 1725 by IVELISSE BAILEY RN Amended: Links added.
--- NOTE | 2017-04-02 12:54 | NUR ---
Clinical Pharmacy Note: Gentamicin Dosing per Pharmacy Subjective: Gentamicin IV to continue on this 66 yo female patient from subacute for HCAP Objective: BUN 24/ Scr 1.0 WBC 8.1 Temp 97.7 gentamicin trough level: 3.7 wt 215 lb ht 65'' Assessment/Plan: Since gentamicin trough level is 3.7, will hold gentamicin for today. Plan to check gentamicin random level in am for further dosing. plan to dose by level. Will continue to monitor & follow up
--- NOTE | 2017-04-02 13:05 | NUR ---
WENT UP TO SCAN CHEST/MEDIASTINUM HOWEVER RN WANTS ME TO RETURN WHEN BP NORMALIZES.
--- NOTE | 2017-04-02 14:00 | NUR ---
had good diuresis from lasix 40mg this am Addendum: 04/02/17 at 1721 by IVELISSE BAILEY RN Amended: Ирина added. Addendum: 04/02/17 at 1723 by IVELISSE BAILEY RN Amended: Ирина added. Addendum: 04/02/17 at 1723 by IVELISSE BAILEY RN Amended: Links added.
--- NOTE | 2017-04-02 14:10 | NUR ---
ultrasound of chest both sides done at the bedside,. Addendum: 04/02/17 at 1429 by IVELISSE BAILEY RN Amended: Links added.
--- NOTE | 2017-04-02 15:00 | NUR ---
no response from dr sana lloyd and also need md to be informed of patient's yeast in urine. pharmacy called yeast of urine. Addendum: 04/02/17 at 1728 by IVELISSE BAILEY RN Amended: Links added. Addendum: 04/02/17 at 1730 by IVELISSE BAILEY RN Amended: Links added.
[2017-04-02] MEDS: AZITHROMYCIN IV 500 MG in IV DEXTROSE 5% 250 ML IV SCH (15:44)
[2017-04-02] MEDS: HYDROCODONE/APAP 5-325MG TABLET GT PRN (15:59)
--- NOTE | 2017-04-02 16:00 | NUR ---
pm care given. skin remains intact. on first step select air mattress and turned q2 hrs from side to side. Addendum: 04/02/17 at 1718 by IVELISSE BAILEY RN Amended: Ирина added. Addendum: 04/02/17 at 1720 by IVELISSE BAILEY RN Amended: Links added. Addendum: 04/02/17 at 1721 by IVELISSE BAILEY RN Amended: Links added. Addendum: 04/02/17 at 1723 by IVELISSE BAILEY RN Amended: Links added. Addendum: 04/02/17 at 1723 by IVELISSE BAILEY RN Amended: Links added.
--- NOTE | 2017-04-02 16:00 | NUR ---
seen by dr connolly at 1600 with no new orders Addendum: 04/02/17 at 1714 by IVELISSE BAILEY RN Amended: Ирина added. Addendum: 04/02/17 at 1715 by IVELISSE BAILEY RN Amended: Ирина added. Addendum: 04/02/17 at 1717 by IVELISSE BAILEY RN Amended: Links added. Addendum: 04/02/17 at 1718 by IVELISSE BAILEY RN Amended: Links added. Addendum: 04/02/17 at 1720 by IVELISSE BAILEY RN Amended: Links added. Addendum: 04/02/17 at 1721 by IVELISSE BAILEY RN Amended: Links added. Addendum: 04/02/17 at 1723 by IVELISSE BAILEY RN Amended: Links added. Addendum: 04/02/17 at 1723 by IVELISSE BAILEY RN Amended: Links added.
--- NOTE | 2017-04-02 17:15 | NUR ---
dr connolly made aware of patient's cont need for vasopressor. Addendum: 04/02/17 at 1715 by IVELISSE BAILEY RN Amended: Ирина added. Addendum: 04/02/17 at 1717 by IVELISSE BAILEY RN Amended: Ирина added. Addendum: 04/02/17 at 1718 by IVELISSE BAILEY RN Amended: Links added. Addendum: 04/02/17 at 1720 by IVELISSE BAILEY RN Amended: Links added. Addendum: 04/02/17 at 1721 by IVELISSE BAILEY RN Amended: Links added. Addendum: 04/02/17 at 1723 by IVELISSE BAILEY RN Amended: Links added. Addendum: 04/02/17 at 1723 by IVELISSE BAILEY RN Amended: Ирина added.
--- NOTE | 2017-04-02 17:20 | NUR ---
edematous but with palpable peripheral pulses Addendum: 04/02/17 at 1720 by IVELISSE BAILEY RN Amended: Ирина added. Addendum: 04/02/17 at 1721 by IVELISSE BAILEY RN Amended: Ирина added. Addendum: 04/02/17 at 1723 by IVELISSE BAILEY RN Amended: Links added. Addendum: 04/02/17 at 1723 by IVELISSE BAILEY RN Amended: Links added.
--- NOTE | 2017-04-02 18:17 | NUR ---
Accucheck 140. no insulin coverage per insulin sliding scale Addendum: 04/02/17 at 1826 by IVELISSE BAILEY RN Amended: Links added.
--- NOTE | 2017-04-02 19:14 | NUR ---
seen by Ramesh GASTELUM. made aware of new microbiology results. orders received. Addendum: 04/02/17 at 1914 by IVELISSE BAILEY RN Amended: Links added.
--- NOTE | 2017-04-02 20:02 | NUR ---
Patient received on Mosquera settings AC 14, VT 450, PEEP+5, FIO2-35%. Shiley 6 DCT is patent and secure. Backup Shiley 6 DCT and resusc. bag at bedside. No respiratory distress noted. Pt to be monitored throughout the shift and PRN SX. Mosquera alarm parameters have been checked and remain audible.
[2017-04-02] MEDS: MUPIROCIN 2% OINT 22 GM TUBE NS SCH (20:40)
[2017-04-02] MEDS: OMEGA-3 FATTY ACIDS/FISH OIL CAPSULE GT SCH (20:45)
--- NOTE | 2017-04-02 22:48 | NUR ---
Stool sent for c-diff/ PATIENT CONTINUES ON VENTILATOR VIA TRACH.ABDOMEN REMAINS DISTENDED AND FIRM. NEELAM FORD
[2017-04-03] VITALS (95 sets, daily range): BP systolic 87–141; BP diastolic 32–74
[2017-04-03] MEDS: BACLOFEN 10 MG TABLET GT SCH ×5 (00:05→23:01)
[2017-04-03] MEDS: NOREPINEPHRINE BITARTRATE 8 MG in IV DEXTROSE 5% 500 ML IV PRN ×3 (02:53→18:43)
[2017-04-03] MEDS: BLOOD SUGAR DIAGNOSTIC 1 EACH STRIP VI SCH ×4 (02:55→17:42)
[2017-04-03 04:50] LABS: BASOPHILS # (AUTO) 0.1 K/uL (0.0-8.0); BASOPHILS % (AUTO) 0.7 % (0.0-2.0); EOSINOPHILS # (AUTO) 0.6 K/uL (0.0-0.7); EOSINOPHILS % (AUTO) 7.3 % (0.0-7.0); HEMATOCRIT 27.4 % (37-47); HEMOGLOBIN 8.4 G/DL (12.0-16.0); LYMPHOCYTES # (AUTO) 1.8 K/UL (0.8-4.8); LYMPHOCYTES % (AUTO) 23.3 % (20.5-51.5); MEAN CORPUSCULAR HEMOGLOBIN 32.1 UUG (27.0-31.0); MEAN CORPUSCULAR HGB CONC 31 g/dL (32.0-37.0); MEAN CORPUSCULAR VOLUME 104.1 FL (81.0-99.0); MONOCYTES # (AUTO) 0.6 K/UL (0.1-1.30); MONOCYTES % (AUTO) 7.1 % (0.0-11.0); NEUTROPHILS # (AUTO) 4.7 K/UL (1.8-8.9); NEUTROPHILS % (AUTO) 61.6 % (38.5-71.5); PLATELET COUNT (AUTO) 116 K/UL (150-450); RED BLOOD CELL COUNT(AUTO) 2.63 MIL/UL (4.2-5.4); WHITE BLOOD COUNT (AUTO) 7.8 K/UL (4.0-11.2)
[2017-04-03 05:06] LABS: BILIRUBIN,TOTAL 0.4 mg/dL (0.2-1.0); MAGNESIUM 1.8 mg/dL (1.8-2.4); PHOSPHOROUS 2.8 mg/dL (2.5-4.9); POTASSIUM 3.3 mmol/L (3.5-5.1); TOTAL PROTEIN, SERUM 7.3 g/dL (6.4-8.2)
[2017-04-03] MEDS: AZTREONAM 1 G in IV NORMAL SALINE 50 ML IV SCH ×2 (05:29→14:15)
[2017-04-03] MEDS: METRONIDAZOLE 500 MG/NS 100ML 500 MG in PREMIXED 1 EACH IV SCH ×3 (05:29→21:53)
[2017-04-03] MEDS: VANCOMYCIN FOR PO/GT/NG USE GT SCH ×2 (05:29→13:17)
[2017-04-03] MEDS: NORMAL SALINE FLUSH 10 ML DISP.SYRIN IV SCH ×3 (05:30→22:00)
--- NOTE | 2017-04-03 06:09 | NUR ---
Pt remains on Mosquera with no changes made to the ventilator settings. No resp. distress noted throughout the shift. Pt appeared to tolerate ventilator settings well. Shiley 6 remains patent and secure; B/U Shiley 6 and BVM are both at bedside. Mosquera alarm parameters have been checked and remain audible.
[2017-04-03] MEDS ORDERED: Z GUARD REMEDY PASTE 57 GM TUBE TOP PRN (06:15)
--- NOTE | 2017-04-03 06:42 | NUR ---
No change in nuero status continues on ventilator via trach/.WHOLE BODY SWOLLEN AND TIGHT.cONTINUES TO NEED PRESSOR TO SUPPORT B/P
--- NOTE | 2017-04-03 07:30 | NUR ---
REPORT RECEIVED FROM Lianne Reyez RN. 66yr old female, comatose, vent dependent. trach Shiley #6 to vent with settings ac 14 tv 450, peep 5 and fio2 35%. remains on levophed at 9mcg/min.PICC line intact via ELIZABETH, IV NS @100ml/hr. Abdomen remains distended. GT site still leaking ascitec fluid. has generalized edema. lee catheter intact. flexiseal intact Addendum: 04/03/17 at 0745 by IVELISSE BAILEY RN Amended: Links added.
--- NOTE | 2017-04-03 08:21 | NUR ---
seen by dr moran with new orders Addendum: 04/03/17 at 0821 by IVELISSE BAILEY RN Amended: Links added.
[2017-04-03] MEDS: ACIDOPHILUS/BULGARICUS CHEW TAB GT SCH ×2 (08:32→16:45)
[2017-04-03] MEDS: CALCIUM CARBONATE 500 MG TAB.CHEW PO SCH (08:33)
[2017-04-03] MEDS: POTASSIUM CHLORIDE 20 MEQ POWDER PACKET GT SCH ×3 (08:33→16:46)
[2017-04-03] MEDS: FAMOTIDINE 20 MG TABLET GT SCH ×2 (08:33→21:00)
[2017-04-03] MEDS: HYDROCODONE/APAP 5-325MG TABLET GT PRN (08:34)
[2017-04-03] MEDS: IV D5/ 0.9% NACL 1,000 ML IV PRN (08:41)
[2017-04-03] MEDS: LEVETIRACETAM 500 MG/5 ML LIQUID UDC GT SCH (08:41)
[2017-04-03] MEDS: VITAMINS A AND D OINT TP SCH (08:42)
[2017-04-03] MEDS: INSULIN DETEMIR 300 UNIT/3 ML CARTRIDGE SQ SCH ×2 (08:45→21:00)
[2017-04-03] MEDS: PHENOBARBITAL 32.4 MG TABLET GT SCH (08:48)
[2017-04-03] MEDS: Z GUARD REMEDY PASTE 57 GM TUBE TOP SCH ×2 (08:52→21:00)
[2017-04-03] MEDS ORDERED: BUMETANIDE INJ 4 MG in IV DEXTROSE 5% 24 ML IV ONE (09:00)
--- NOTE | 2017-04-03 09:00 | NUR ---
labs reviewed by dr moran Addendum: 04/03/17 at 1857 by IVELISSE BAILEY RN Amended: Ирина added. Addendum: 04/03/17 at 1859 by IVELISSE BAILEY RN Amended: Ирина added. Addendum: 04/03/17 at 1918 by IVELISSE BAILEY RN Amended: Links added. Addendum: 04/03/17 at 2 by IVELISSE BAILEY RN Amended: Links added. Addendum: 04/03/17 at 5 by IVELISSE BAILEY RN Amended: Links added. Addendum: 04/03/17 at 1926 by IVELISSE BAILEY RN Amended: Links added. Addendum: 04/03/17 at 1926 by IVELISSE BAILEY RN Amended: Links added. Addendum: 04/03/17 at 8 by IVELISSE BAILEY RN Amended: Links added.
--- NOTE | 2017-04-03 09:00 | NUR ---
bumex drip 4mg started IV times 4 hrs. Main IV fluid changed to D5NS at 65ml/hr Addendum: 04/03/17 at 1014 by IVELISSE BAILEY RN Amended: Links added.
[2017-04-03] MEDS: MUPIROCIN 2% OINT 22 GM TUBE NS SCH ×2 (09:09→21:00)
[2017-04-03] MEDS: NEOMY/BACITRAC/POLYMI OINT 28.35 GM TUBE TP SCH ×2 (09:09→21:00)
[2017-04-03] MEDS: COD LIVER OIL/ZINC OXIDE OINT 113 GM TUBE TOP SCH ×2 (09:10→21:00)
[2017-04-03] MEDS: MUPIROCIN 2% OINT 22 GM TUBE TP SCH ×2 (09:10→21:00)
[2017-04-03 09:57] LABS: EOSINOPHILS % (MANUAL) 9 % (0-8); LYMPHOCYTES % (MANUAL) 26 % (20-40); MONOCYTES % (MANUAL) 6 % (2-10); NEUTROPHILS % (MANUAL) 59 % (42-75)
--- NOTE | 2017-04-03 10:00 | NUR ---
peripheral pulses weak but palpable. remains edematous Addendum: 04/03/17 at 1859 by IVELISSE BAILEY RN Amended: Links added. Addendum: 04/03/17 at 1918 by IVELISSE BAILEY RN Amended: Links added. Addendum: 04/03/17 at 1922 by IVELISSE BAILEY RN Amended: Links added. Addendum: 04/03/17 at 1925 by IVELISSE BAILEY RN Amended: Links added. Addendum: 04/03/17 at 1926 by IVELISSE BAILEY RN Amended: Links added. Addendum: 04/03/17 at 1927 by IVELISSE BAILEY RN Amended: Links added. Addendum: 04/03/17 at 1927 by IVELISSE BAILEY RN Amended: Links added.
--- NOTE | 2017-04-03 10:30 | NUR ---
spoke to patient's father on the phone. condition report given Addendum: 04/03/17 at 1928 by IVELISSE BAILEY RN Amended: Links added.
--- NOTE | 2017-04-03 10:45 | NUR ---
seen by dr delaney new orders Addendum: 04/03/17 at 1105 by IVELISSE BAILEY RN Amended: Links added.
--- NOTE | 2017-04-03 10:45 | NUR ---
seen by dr benjy SANTILLAN gt was pulled out by . colostomy bag applied to contain leakage from peritoneal cavity. Addendum: 04/03/17 at 1102 by IVELISSE BAILEY RN Amended: Links added. Addendum: 04/03/17 at 1105 by IVELISSE BAILEY RN Amended: Links added.
[2017-04-03 10:52] LABS: ABG BASE EXCESS -3.9 mmol/L; ABG HCO3 22.1 mmol/L; ABG PCO2 43.8 mmHg (35.0-45.0); ABG PO2 105.9 mmHg (75.0-100.0); ABG SITE LEFT FEMORAL; COHb 1.7 % (0.5-1.5); MetHb 0.3 % (0.0-1.5); VENT MODE VENT - A/C; VT, ABG 450 mL
[2017-04-03] MEDS ORDERED: TPN/PPN PER PHARMACY IV PRN (11:15)
--- NOTE | 2017-04-03 12:00 | NUR ---
warming measures initiated for hypothermia Addendum: 04/03/17 at 1918 by IVELISSE BAILEY RN Amended: Ирина added. Addendum: 04/03/17 at 1922 by IVELISSE BAILEY RN Amended: Ирина added. Addendum: 04/03/17 at 1925 by IVELISSE BAILEY RN Amended: Links added. Addendum: 04/03/17 at 6 by IVELISSE BAILEY RN Amended: Links added. Addendum: 04/03/17 at 7 by IVELISSE BAILEY RN Amended: Links added. Addendum: 04/03/17 at 1928 by IVELISSE BAILEY RN Amended: Links added.
--- NOTE | 2017-04-03 12:00 | NUR ---
temp 94.5. jeannette xiong applied on patient Addendum: 04/03/17 at 1316 by IVELISSE BAILEY RN Amended: Links added.
--- NOTE | 2017-04-03 12:19 | NUR ---
maricarmen 106, no insulin needed Addendum: 04/03/17 at 1223 by IVELISSE BAILEY RN Amended: Links added.
--- NOTE | 2017-04-03 12:42 | NUR ---
Clinical Pharmacy Note: Gentamicin Dosing per Pharmacy Subjective: Gentamicin IV to continue on this 66 yo female patient from subacute for HCAP Objective: BUN 18/ Scr 1.0 WBC 7.8 Temp 97.4 gentamicin random level: 2 (with am labs) wt 215 lb ht 65'' Assessment/Plan: Will continue to dose by level. Will give gentamicin 120 mg IVPB x1 today at 1800. Pharmacy shall order next gentamicin random level in am for further dosing. Will continue to monitor & follow up
--- NOTE | 2017-04-03 13:00 | NUR ---
remains on levophed drip at 10 mcg/min. bp 90-100 sbp while on bumex drip Addendum: 04/03/17 at 1921 by IVELISSE BAILEY RN Amended: Ирина added. Addendum: 04/03/17 at 1924 by IVELISSE BAILEY RN Amended: Links added. Addendum: 04/03/17 at 1925 by IVELISSE BAILEY RN Amended: Links added. Addendum: 04/03/17 at 7 by IVELISSE BAILEY RN Amended: Links added. Addendum: 04/03/17 at 1928 by IVELISSE BAILEY RN Amended: Links added.
--- NOTE | 2017-04-03 14:00 | NUR ---
stable pulmonary status on current vent settings Addendum: 04/03/17 at 1925 by IVELISSE BAILEY RN Amended: Ирина added. Addendum: 04/03/17 at 1925 by IVELISSE BAILEY RN Amended: Ирина added. Addendum: 04/03/17 at 1927 by IVELISSE BAILEY RN Amended: Links added. Addendum: 04/03/17 at 1928 by IVELISSE BAILEY RN Amended: Links added.
[2017-04-03] MEDS: AZITHROMYCIN IV 500 MG in IV DEXTROSE 5% 250 ML IV SCH (15:32)
--- NOTE | 2017-04-03 16:00 | NUR ---
skin care done Addendum: 04/03/17 at 1926 by IVELISSE BAILEY RN Amended: Ирина added. Addendum: 04/03/17 at 7 by IVELISSE BAILEY RN Amended: Ирина added. Addendum: 04/03/17 at 1928 by IVELISSE BAILEY RN Amended: Links added.
--- NOTE | 2017-04-03 17:43 | NUR ---
dale 124, no coverage needed Addendum: 04/03/17 at 1744 by IVELISSE BAILEY RN Amended: Links added.
[2017-04-03] MEDS ORDERED: GENTAMICIN SULFATE INJ 120 MG in IV DEXTROSE 5% 100 ML IV ONE (18:00)
--- NOTE | 2017-04-03 19:27 | NUR ---
seen by Ramesh norris ID. made aware of the left eye redness Addendum: 04/03/17 at 1926 by IVELISSE BAILEY RN Amended: Links added. Addendum: 04/03/17 at 1927 by IVELISSE BAILEY RN Amended: Links added.
--- NOTE | 2017-04-03 19:30 | NUR ---
report given to Ronnie Addendum: 04/03/17 at 1930 by IVELISSE BAILEY RN Amended: Links added.
--- NOTE | 2017-04-03 19:51 | NUR ---
RECEIVED PT ON CONTINUOUS MECHANICAL VENTILATION WITH VENT SETTINGS OF AC 14 VT 450 PEEP 5 FIO2 35%. NO CHANGES MADE ON VENT AT THIS TIME. VENT CHECK COMPLETED. ALARMS CHECKED, ARE ON AND AUDIBLE. ORAL CARE DONE. TRACH IS PATENT AND SECURED WITH TRACH TIES. SUCTION SMALL AMOUNT THIN WHITE SECRETIONS. HME CHANGED. VENT IS PLUGGED INTO RED EMERGENCY OUTLET. NO S/S OF RESPIRATORY DISTRESS OBSERVED. WILL CONTINUE TO MONITOR THROUGHOUT SHIFT.
[2017-04-03 20:18] LABS: CREATININE 0.9 mg/dL (0.6-1.3); POTASSIUM 3.1 mmol/L (3.5-5.1)
[2017-04-03] MEDS ORDERED: DEXTROSE 5% IV SCH (21:00)
[2017-04-03] MEDS: OMEGA-3 FATTY ACIDS/FISH OIL CAPSULE GT SCH (21:00)
[2017-04-03] MEDS ORDERED: LEVETIRACETAM IV SCH (21:00)
[2017-04-03] MEDS: POTASSIUM CHLORIDE 50 ML IV SCH ×3 (21:37→23:30)
[2017-04-03] MEDS ORDERED: CIPROFLOXACIN 0.3% OPHT OINT 3.5 GM TUBE LEFTEYE SCH (21:45)
[2017-04-03] MEDS: CEFTAZIDIME 2 G in IV DEXTROSE 5% 100 ML IV SCH (22:00)
[2017-04-03] MEDS: CIPROFLOXACIN 0.3% OPHT DROP 2.5 ML BOTTLE LEFTEYE SCH (22:00)
[2017-04-03] MEDS: PHENOBARBITAL SODIUM 130 MG/1 ML DISP.SYRIN IV SCH (22:27)
[2017-04-03] MEDS ORDERED: PHENOBARBITAL SODIUM 130 MG/1 ML DISP.SYRIN ONE (22:39)
--- NOTE | 2017-04-03 22:39 | NUR ---
Note to Pharmacy: Phenobarbital given; but, charted elsewhere in eMar.
[2017-04-03] MEDS ORDERED: LEVETIRACETAM 500 MG/5 ML VIAL IV ONE (22:49)
[2017-04-03] MEDS ORDERED: CIPROFLOXACIN 0.3% OPHT DROP 2.5 ML BOTTLE ONE (22:49)
[2017-04-03] MEDS ORDERED: CEFTAZIDIME 1 G VIAL ONE ×2 (22:50→22:58)
[2017-04-04] VITALS (77 sets, daily range): BP systolic 80–136; BP diastolic 44–93
[2017-04-04] MEDS: BLOOD SUGAR DIAGNOSTIC 1 EACH STRIP VI SCH ×4 (00:30→18:26)
[2017-04-04] MEDS: POTASSIUM CHLORIDE 50 ML IV SCH ×3 (00:30→14:51)
[2017-04-04 05:02] LABS: BASOPHILS % (AUTO) 0.5 % (0.0-2.0); EOSINOPHILS # (AUTO) 0.5 K/uL (0.0-0.7); EOSINOPHILS % (AUTO) 8.9 % (0.0-7.0); HEMOGLOBIN 8.2 G/DL (12.0-16.0); LYMPHOCYTES # (AUTO) 1.5 K/UL (0.8-4.8); MEAN CORPUSCULAR HEMOGLOBIN 32.8 UUG (27.0-31.0); MEAN CORPUSCULAR HGB CONC 32 g/dL (32.0-37.0); MEAN CORPUSCULAR VOLUME 104.1 FL (81.0-99.0); MONOCYTES # (AUTO) 0.4 K/UL (0.1-1.30); MONOCYTES % (AUTO) 6.6 % (0.0-11.0); PLATELET COUNT (AUTO) 96 K/UL (150-450); WHITE BLOOD COUNT (AUTO) 5.4 K/UL (4.0-11.2)
[2017-04-04] MEDS: BACLOFEN 10 MG TABLET GT SCH (05:05)
[2017-04-04] MEDS: METRONIDAZOLE 500 MG/NS 100ML 500 MG in PREMIXED 1 EACH IV SCH ×3 (05:07→21:58)
[2017-04-04] MEDS: CIPROFLOXACIN 0.3% OPHT DROP 2.5 ML BOTTLE LEFTEYE SCH ×3 (05:07→21:58)
[2017-04-04] MEDS: NORMAL SALINE FLUSH 10 ML DISP.SYRIN IV SCH ×3 (05:08→21:58)
[2017-04-04 05:20] LABS: BILIRUBIN,TOTAL 0.4 mg/dL (0.2-1.0); CREATININE 0.9 mg/dL (0.6-1.3); MAGNESIUM 1.7 mg/dL (1.8-2.4); PHOSPHOROUS 2.5 mg/dL (2.5-4.9); POTASSIUM 3.5 mmol/L (3.5-5.1)
[2017-04-04 05:52] LABS: EOSINOPHILS % (MANUAL) 7 % (0-8); LYMPHOCYTES % (MANUAL) 28 % (20-40); MONOCYTES % (MANUAL) 7 % (2-10); NEUTROPHILS % (MANUAL) 58 % (42-75)
[2017-04-04] MEDS: IV D5/ 0.9% NACL 1,000 ML IV PRN (06:45)
[2017-04-04] MEDS: DEXTROSE 5% IV SCH ×2 (09:25→21:02)
[2017-04-04] MEDS: LEVETIRACETAM IV SCH ×2 (09:25→21:02)
[2017-04-04] MEDS: NEOMY/BACITRAC/POLYMI OINT 28.35 GM TUBE TP SCH ×2 (09:26→21:00)
[2017-04-04] MEDS: PHENOBARBITAL SODIUM 130 MG/1 ML DISP.SYRIN IV SCH ×2 (09:26→21:02)
[2017-04-04] MEDS: MUPIROCIN 2% OINT 22 GM TUBE NS SCH ×2 (09:27→21:00)
[2017-04-04] MEDS: VITAMINS A AND D OINT TP SCH (09:27)
[2017-04-04] MEDS: Z GUARD REMEDY PASTE 57 GM TUBE TOP SCH ×2 (09:28→21:00)
[2017-04-04] MEDS: CEFTAZIDIME 2 G in IV DEXTROSE 5% 100 ML IV SCH ×2 (09:32→21:57)
[2017-04-04] MEDS: MUPIROCIN 2% OINT 22 GM TUBE TP SCH ×2 (09:32→21:00)
[2017-04-04] MEDS: COD LIVER OIL/ZINC OXIDE OINT 113 GM TUBE TOP SCH ×2 (09:35→21:00)
[2017-04-04] MEDS ORDERED: POTASSIUM CHLORIDE 100 ML IV ONE (10:45)
[2017-04-04] MEDS: NOREPINEPHRINE BITARTRATE 8 MG in IV DEXTROSE 5% 500 ML IV PRN ×2 (15:12→19:33)
[2017-04-04] MEDS: OMEGA-3 FATTY ACIDS/FISH OIL CAPSULE GT SCH (20:48)
[2017-04-04] MEDS: FAMOTIDINE. 20 MG/2 ML VIAL IV SCH (21:02)
[2017-04-05] VITALS (90 sets, daily range): BP systolic 77–131; BP diastolic 44–73
--- NOTE | 2017-04-05 00:01 | NUR ---
Remains on vasopressor. Continues MRSA isolation. Turned Q2H side to side; remains, on 1st Step mattress. Right upper arm PICC; dressing changed.
[2017-04-05] MEDS: BLOOD SUGAR DIAGNOSTIC 1 EACH STRIP VI SCH ×4 (00:29→17:47)
[2017-04-05] MEDS: IV D5/ 0.9% NACL 1,000 ML IV PRN (04:05)
[2017-04-05] MEDS: NORMAL SALINE FLUSH 10 ML DISP.SYRIN IV SCH ×3 (05:17→22:34)
[2017-04-05] MEDS: METRONIDAZOLE 500 MG/NS 100ML 500 MG in PREMIXED 1 EACH IV SCH ×3 (05:17→16:02)
[2017-04-05] MEDS: CIPROFLOXACIN 0.3% OPHT DROP 2.5 ML BOTTLE LEFTEYE SCH ×3 (05:17→22:34)
[2017-04-05 05:24] LABS: BASOPHILS % (AUTO) 0.2 % (0.0-2.0); EOSINOPHILS # (AUTO) 0.5 K/uL (0.0-0.7); EOSINOPHILS % (AUTO) 7.8 % (0.0-7.0); HEMATOCRIT 26.6 % (37-47); HEMOGLOBIN 8.3 G/DL (12.0-16.0); LYMPHOCYTES # (AUTO) 1.2 K/UL (0.8-4.8); LYMPHOCYTES % (AUTO) 20.3 % (20.5-51.5); MEAN CORPUSCULAR HEMOGLOBIN 32.9 UUG (27.0-31.0); MEAN CORPUSCULAR HGB CONC 31 g/dL (32.0-37.0); MEAN CORPUSCULAR VOLUME 105.9 FL (81.0-99.0); MONOCYTES # (AUTO) 0.4 K/UL (0.1-1.30); MONOCYTES % (AUTO) 7.5 % (0.0-11.0); NEUTROPHILS # (AUTO) 3.7 K/UL (1.8-8.9); NEUTROPHILS % (AUTO) 64.2 % (38.5-71.5); PLATELET COUNT (AUTO) 104 K/UL (150-450); RED BLOOD CELL COUNT(AUTO) 2.52 MIL/UL (4.2-5.4); WHITE BLOOD COUNT (AUTO) 5.8 K/UL (4.0-11.2)
[2017-04-05 05:29] LABS: BILIRUBIN,TOTAL 0.4 mg/dL (0.2-1.0); CREATININE 0.9 mg/dL (0.6-1.3); MAGNESIUM 1.6 mg/dL (1.8-2.4); PHOSPHOROUS 2.4 mg/dL (2.5-4.9); POTASSIUM 3.3 mmol/L (3.5-5.1); TOTAL PROTEIN, SERUM 6.9 g/dL (6.4-8.2)
--- NOTE | 2017-04-05 07:30 | NUR ---
RECIEVED PT LYING IN BED, HOB ON SEMIFOWLERS. COMATOSE AND UNRESPONSIVE, EYES OPENS INVOLUNTARILY.. BOTH EYES ARE RED AND EDEMATOUS.. SR ON THE MONITOR. PT STILL ON LEVOPHED DRIP FOR BLOOD PRESSURE SUPPORT AT 10MCG/KG/MIN. PICC LINE SITE IS GOOD. PT IS HEAVILY OBESED AND GENERALIZED EDEMA +3. AFEBRILE.
[2017-04-05] MEDS ORDERED: MAGNESIUM SULFATE/D5W 100 ML IV SCH (08:15)
[2017-04-05] MEDS: FAMOTIDINE. 20 MG/2 ML VIAL IV SCH ×2 (08:32→21:07)
[2017-04-05] MEDS: PHENOBARBITAL SODIUM 130 MG/1 ML DISP.SYRIN IV SCH ×2 (08:32→21:07)
[2017-04-05] MEDS: VITAMINS A AND D OINT TP SCH (08:33)
[2017-04-05] MEDS: NEOMY/BACITRAC/POLYMI OINT 28.35 GM TUBE TP SCH ×2 (08:33→21:00)
[2017-04-05] MEDS: MUPIROCIN 2% OINT 22 GM TUBE NS SCH ×2 (08:33→09:07)
[2017-04-05] MEDS: MUPIROCIN 2% OINT 22 GM TUBE TP SCH ×2 (09:00→21:00)
[2017-04-05] MEDS: Z GUARD REMEDY PASTE 57 GM TUBE TOP SCH ×2 (09:00→21:00)
[2017-04-05] MEDS: LEVETIRACETAM IV SCH ×2 (09:05→21:07)
[2017-04-05] MEDS: DEXTROSE 5% IV SCH ×2 (09:05→21:07)
[2017-04-05] MEDS: COD LIVER OIL/ZINC OXIDE OINT 113 GM TUBE TOP SCH ×2 (09:05→21:00)
[2017-04-05 09:36] LABS: ABG BASE EXCESS -1.8 mmol/L; ABG HCO3 23.3 mmol/L; ABG PCO2 41.3 mmHg (35.0-45.0); ABG PO2 95.9 mmHg (75.0-100.0); ABG SITE LEFT RADIAL; ABG TOTAL HEMOGLOBIN 8.4 G/dL (12.0-16.0); COHb 1.7 % (0.5-1.5); MetHb 0.4 % (0.0-1.5); VENT MODE VENT - A/C; VT, ABG 450 mL
[2017-04-05] MEDS: CEFTAZIDIME 2 G in IV DEXTROSE 5% 100 ML IV SCH ×2 (11:22→22:32)
[2017-04-05] MEDS: POTASSIUM PHOSPHATE MM 7.5 MMOL in IV DEXTROSE 5% 100 ML IV SCH ×2 (14:03→16:05)
[2017-04-05] MEDS: NOREPINEPHRINE BITARTRATE 8 MG in IV DEXTROSE 5% 500 ML IV PRN ×2 (14:11→20:15)
[2017-04-05] MEDS: POTASSIUM CHLORIDE 10 MEQ in IV D5 1/2 NS 1000 ML 1,000 ML IV PRN (14:14)
--- NOTE | 2017-04-05 18:01 | NUR ---
PT REMAINS ON MECHANICAL VENTILATION, NO SOB NOTED DURING THROUGHOUT SHIFT. SHILEY 6 TRACH IS PATENT AND SECURED WITH TIES. HAS MODERATE AMOUNTS OF THICK YELLOW SECRETIONS. NO VENT CHANGES MADE. ALARMS ARE ON AND AUDIBLE, BVM AND BACK UP TRACH AT BEDSIDE. WILL CONTINUE TO MONITOR.
--- NOTE | 2017-04-05 19:14 | NUR ---
Received pt on Mosquera vent with the following settings of AC-14, Vt-450, PEEP+5, FIO2-35%, trached with Shiley#6 DCT trach, which is in the place and secure. No s/s of respiratory distress noted. Airway care done, pt responded to physical stimuli. Resus. bag and back up trach at bedside. Vent and alarms checked and reset.
[2017-04-05] MEDS: OMEGA-3 FATTY ACIDS/FISH OIL CAPSULE GT SCH (21:00)
[2017-04-06] VITALS (96 sets, daily range): BP systolic 60–129; BP diastolic 21–73
--- NOTE | 2017-04-06 00:01 | NUR ---
Remains on vasopressor. Continues MRSA isolation. Turned Q2H side to side; remains, on 1st Step mattress.
[2017-04-06] MEDS: INSULIN REGULAR, HUMAN 300 UNIT/3 ML VIAL SQ PRN ×3 (00:26→18:11)
[2017-04-06] MEDS: BLOOD SUGAR DIAGNOSTIC 1 EACH STRIP VI SCH ×4 (00:26→18:04)
[2017-04-06] MEDS: POTASSIUM CHLORIDE 10 MEQ in IV D5 1/2 NS 1000 ML 1,000 ML IV PRN ×2 (03:54→17:52)
--- NOTE | 2017-04-06 05:07 | NUR ---
Cont. monitor pt on present vent settings. During the shift no respiratory distress noted, present vent settings pt tolerated well, no changes made. Sx and lavage prn. HME changed. Oral care done. Resus. bag and back up trach at bedside. Vent and alarms on and audible.
[2017-04-06 05:13] LABS: BASOPHILS % (AUTO) 0.8 % (0.0-2.0); EOSINOPHILS # (AUTO) 0.5 K/uL (0.0-0.7); EOSINOPHILS % (AUTO) 9.7 % (0.0-7.0); HEMATOCRIT 26.5 % (37-47); HEMOGLOBIN 8.3 G/DL (12.0-16.0); LYMPHOCYTES # (AUTO) 1.4 K/UL (0.8-4.8); LYMPHOCYTES % (AUTO) 26.4 % (20.5-51.5); MEAN CORPUSCULAR HEMOGLOBIN 33.2 UUG (27.0-31.0); MEAN CORPUSCULAR HGB CONC 31 g/dL (32.0-37.0); MEAN CORPUSCULAR VOLUME 106.5 FL (81.0-99.0); MONOCYTES # (AUTO) 0.4 K/UL (0.1-1.30); MONOCYTES % (AUTO) 7.7 % (0.0-11.0); NEUTROPHILS % (AUTO) 55.4 % (38.5-71.5); PLATELET COUNT (AUTO) 85 K/UL (150-450); WHITE BLOOD COUNT (AUTO) 5.3 K/UL (4.0-11.2)
[2017-04-06 05:16] LABS: RED BLOOD CELL COUNT(AUTO) 2.49 MIL/UL (4.2-5.4)
[2017-04-06 05:23] LABS: BILIRUBIN,TOTAL 0.3 mg/dL (0.2-1.0); CREATININE 0.9 mg/dL (0.6-1.3); MAGNESIUM 1.9 mg/dL (1.8-2.4); PHOSPHOROUS 2.6 mg/dL (2.5-4.9); POTASSIUM 3.3 mmol/L (3.5-5.1); TOTAL PROTEIN, SERUM 6.9 g/dL (6.4-8.2)
[2017-04-06] MEDS: NORMAL SALINE FLUSH 10 ML DISP.SYRIN IV SCH ×3 (06:19→21:08)
[2017-04-06] MEDS: METRONIDAZOLE 500 MG/NS 100ML 500 MG in PREMIXED 1 EACH IV SCH ×3 (06:19→21:23)
[2017-04-06] MEDS: CIPROFLOXACIN 0.3% OPHT DROP 2.5 ML BOTTLE LEFTEYE SCH ×2 (06:19→14:08)
[2017-04-06] MEDS: PHENOBARBITAL SODIUM 130 MG/1 ML DISP.SYRIN IV SCH ×2 (08:13→20:42)
[2017-04-06] MEDS: FAMOTIDINE. 20 MG/2 ML VIAL IV SCH ×2 (08:13→21:02)
[2017-04-06] MEDS: NEOMY/BACITRAC/POLYMI OINT 28.35 GM TUBE TP SCH ×2 (08:14→21:01)
[2017-04-06] MEDS: MUPIROCIN 2% OINT 22 GM TUBE NS SCH ×2 (08:14→21:04)
[2017-04-06] MEDS: VITAMINS A AND D OINT TP SCH (08:14)
[2017-04-06] MEDS: Z GUARD REMEDY PASTE 57 GM TUBE TOP SCH ×2 (08:27→21:00)
[2017-04-06] MEDS: COD LIVER OIL/ZINC OXIDE OINT 113 GM TUBE TOP PRN (08:27)
[2017-04-06] MEDS: MUPIROCIN 2% OINT 22 GM TUBE TP SCH ×2 (08:28→21:00)
[2017-04-06] MEDS: COD LIVER OIL/ZINC OXIDE OINT 113 GM TUBE TOP SCH ×2 (08:28→21:00)
[2017-04-06] MEDS: LEVETIRACETAM IV SCH ×2 (08:50→20:28)
[2017-04-06] MEDS: DEXTROSE 5% IV SCH ×2 (08:50→20:28)
[2017-04-06] MEDS: CEFTAZIDIME 2 G in IV DEXTROSE 5% 100 ML IV SCH ×2 (10:08→21:23)
--- NOTE | 2017-04-06 11:30 | NUR ---
seen by dr cesar new orders received Addendum: 04/06/17 at 1337 by IVELISSE BAILEY RN Amended: Ирина added. Addendum: 04/06/17 at 1339 by IVELISSE BAILEY RN Amended: Ирина added. Addendum: 04/06/17 at 1339 by IVELISSE BAILEY RN Amended: Links added.
--- NOTE | 2017-04-06 12:00 | NUR ---
remains afebrile. Addendum: 04/06/17 at 1846 by IVELISSE BAILEY RN Amended: Ирина added. Addendum: 04/06/17 at 1848 by IVELISSE BAILEY RN Amended: Ирина added. Addendum: 04/06/17 at 1850 by IVELISSE BAILEY RN Amended: Links added. Addendum: 04/06/17 at 1850 by IVELISSE BAILEY RN Amended: Links added. Addendum: 04/06/17 at 1851 by IVELISSE BAILEY RN Amended: Links added. Addendum: 04/06/17 at 1854 by IVELISSE BAILEY RN Amended: Links added. Addendum: 04/06/17 at 1854 by IVELISSE BAILEY RN Amended: Links added.
--- NOTE | 2017-04-06 12:24 | NUR ---
no coverage for accreagan 149 Addendum: 04/06/17 at 1225 by IVELISSE BAILEY RN Amended: Links added.
--- NOTE | 2017-04-06 13:00 | NUR ---
remains stable on vent. has a lot of frothy oral secretions. needed frequent suctioning orally Addendum: 04/06/17 at 1848 by IVELISSE BAILEY RN Amended: Links added. Addendum: 04/06/17 at 185 by IVELISSE BAILEY RN Amended: Links added. Addendum: 04/06/17 at 1851 by IVELISSE BAILEY RN Amended: Links added. Addendum: 04/06/17 at 1852 by IVELISSE BAILEY RN Amended: Links added. Addendum: 04/06/17 at 1854 by IVELISSE BAILEY RN Amended: Links added. Addendum: 04/06/17 at 1855 by IVELISSE BAILEY RN Amended: Links added.
--- NOTE | 2017-04-06 13:38 | NUR ---
seen by dr irizarry Addendum: 04/06/17 at 1339 by IVELISSE BAILEY RN Amended: Ирина crocker. Addendum: 04/06/17 at 1339 by IVELISSE BAILEY RN Amended: Ирина crocker.
--- NOTE | 2017-04-06 14:00 | NUR ---
skin care done Addendum: 04/06/17 at 1850 by IVELISSE BAILEY RN Amended: Ирина added. Addendum: 04/06/17 at 185 by IVELISSE BAILEY RN Amended: Ирина added. Addendum: 04/06/17 at 1852 by IVELISSE BAILEY RN Amended: Links added. Addendum: 04/06/17 at 1854 by IVELISSE BAILEY RN Amended: Links added. Addendum: 04/06/17 at 1855 by IVELISSE BAILEY RN Amended: Links added.
--- NOTE | 2017-04-06 15:00 | NUR ---
seen by dr alan jarrett insertion. Addendum: 04/06/17 at 184 by IVELISSE BAILEY RN Amended: Links added. Addendum: 04/06/17 at 1844 by IVELISSE BAILEY RN Amended: Links added. Addendum: 04/06/17 at 184 by IVELISSE BAILEY RN Amended: Links added. Addendum: 04/06/17 at 1846 by IVELISSE BAILEY RN Amended: Links added. Addendum: 04/06/17 at 1848 maisha BAILEY RN Amended: Links added. Addendum: 04/06/17 at 0 by IVELISSE BAILEY RN Amended: Links added. Addendum: 04/06/17 at 1850 by IVELISSE BAILEY RN Amended: Links added. Addendum: 04/06/17 at 1851 by IVELISSE BAILEY RN Amended: Links added. Addendum: 04/06/17 at 1854 by IVELISSE BAILEY RN Amended: Links added. Addendum: 04/06/17 at 1855 by IVELISSE BAILEY RN Amended: Links added.
--- NOTE | 2017-04-06 15:00 | NUR ---
tpn on hold till medically appropriate Addendum: 04/06/17 at 185 by IVELISSE BAILEY RN Amended: Ирина added. Addendum: 04/06/17 at 1851 by IVELISSE BAILEY RN Amended: Ирина added. Addendum: 04/06/17 at 1854 by IVELISSE BAILEY RN Amended: Links added. Addendum: 04/06/17 at 1855 by IVELISSE BAILEY RN Amended: Links added.
[2017-04-06] MEDS: POTASSIUM CHLORIDE 50 ML IV SCH ×2 (16:00→16:48)
[2017-04-06] MEDS: NOREPINEPHRINE BITARTRATE 8 MG in IV DEXTROSE 5% 500 ML IV PRN (16:08)
--- NOTE | 2017-04-06 17:00 | NUR ---
seen by dr connolly, cardiology. aware of patient's need for vasopressor.no new orders Addendum: 04/06/17 at 1844 by IVELISSE BAILEY RN Amended: Ирина added. Addendum: 04/06/17 at 1844 by IVELISSE BAILEY RN Amended: Ирина added. Addendum: 04/06/17 at 1845 by IVELISSE BAILEY RN Amended: Links added. Addendum: 04/06/17 at 1848 by IVELISSE BAILEY RN Amended: Links added. Addendum: 04/06/17 at 1850 by IVELISSE BAILEY RN Amended: Links added. Addendum: 04/06/17 at 1850 by IVELISSE BAILEY RN Amended: Links added. Addendum: 04/06/17 at 1851 by IVELISSE BAILEY RN Amended: Links added. Addendum: 04/06/17 at 1854 by IVELISSE BAILEY RN Amended: Links added. Addendum: 04/06/17 at 1855 by IVELISSE BAILEY RN Amended: Links added.
--- NOTE | 2017-04-06 17:00 | NUR ---
remains on multiple antibiotics for infection. Addendum: 04/06/17 at 1854 by IVELISSE BAILEY RN Amended: Ирина added. Addendum: 04/06/17 at 1855 by IVELISSE BAILEY RN Amended: Ирина crocker.
--- NOTE | 2017-04-06 17:36 | NUR ---
k3,3. covered with 20meq kcl IV Addendum: 04/06/17 at 1741 by IVELISSE BAILEY RN Amended: Links added.
--- NOTE | 2017-04-06 18:00 | NUR ---
no output from gt site. Addendum: 04/06/17 at 1855 by IVELISSE BAILEY RN Amended: Links added.
--- NOTE | 2017-04-06 18:13 | NUR ---
HUMULIN 11 UNITS GIVEN SQ FOR ACCUCHECK 164 Addendum: 04/06/17 at 1813 by IVELISSE BAILEY RN Amended: Links added.
--- NOTE | 2017-04-06 18:25 | NUR ---
PT CONT ON FULL VENT SUPPORT. PT VENT'D VIA TRACH TUBE SH6DCT, VENT SETTINGS AC14 450 VT PEEP+5 35%. NO VENT WEANING TODAY. BS DIM SYEDA. LAVAGE/SXN'ING PRN. BVM BACKUP TRACH AT BEDSIDE. VENT ALARMS AUDIBLE CHECKED AND RESET.
--- NOTE | 2017-04-06 18:52 | NUR ---
off tpn/tube fdg for now till medically feasible. patient with severe anasarca. MDs aware Addendum: 04/06/17 at 1851 by IVELISSE BAILEY RN Amended: Links added. Addendum: 04/06/17 at 1853 by IVELISSE BAILEY RN Amended: Links added. Addendum: 04/06/17 at 1854 by IVELISSE BAILEY RN Amended: Links added.
--- NOTE | 2017-04-06 19:17 | NUR ---
Received pt on Mosquera vent with the following settings of AC-14, Vt-450, PEEP+5, FIO2-35%, trached with Shiley#6 DCT trach, which is in the place and secure. No s/s of respiratory distress noted. Airway care done, pt responded to physical stimuli. Resus. bag and back up trach at bedside. Vent and alarms on and audible.
[2017-04-06] MEDS: FLUCONAZOLE 400MG /NS 200ML IV 400 MG in PREMIXED 1 EACH IV SCH (20:56)
[2017-04-06] MEDS: CIPROFLOXACIN 0.3% OPHT DROP 2.5 ML BOTTLE EACHEYE SCH (21:00)
[2017-04-06] MEDS: OMEGA-3 FATTY ACIDS/FISH OIL CAPSULE GT SCH (21:02)
[2017-04-07] VITALS (94 sets, daily range): BP systolic 89–153; BP diastolic 41–87
[2017-04-07] MEDS: BLOOD SUGAR DIAGNOSTIC 1 EACH STRIP VI SCH ×4 (00:28→18:17)
[2017-04-07 05:10] LABS: BASOPHILS % (AUTO) 0.7 % (0.0-2.0); EOSINOPHILS # (AUTO) 0.4 K/uL (0.0-0.7); EOSINOPHILS % (AUTO) 7.5 % (0.0-7.0); HEMOGLOBIN 8.2 G/DL (12.0-16.0); LYMPHOCYTES # (AUTO) 1.4 K/UL (0.8-4.8); LYMPHOCYTES % (AUTO) 22.9 % (20.5-51.5); MEAN CORPUSCULAR HEMOGLOBIN 32.5 UUG (27.0-31.0); MEAN CORPUSCULAR HGB CONC 30 g/dL (32.0-37.0); MEAN CORPUSCULAR VOLUME 107.1 FL (81.0-99.0); MONOCYTES # (AUTO) 0.4 K/UL (0.1-1.30); MONOCYTES % (AUTO) 6.6 % (0.0-11.0); NEUTROPHILS # (AUTO) 3.7 K/UL (1.8-8.9); NEUTROPHILS % (AUTO) 62.3 % (38.5-71.5); PLATELET COUNT (AUTO) 82 K/UL (150-450); RED BLOOD CELL COUNT(AUTO) 2.52 MIL/UL (4.2-5.4); WHITE BLOOD COUNT (AUTO) 5.9 K/UL (4.0-11.2)
--- NOTE | 2017-04-07 05:25 | NUR ---
Cont. monitor pt on present vent settings. During the shift no respiratory distress noted. Present vent settings pt tolerated well, no changes made. Sx and lavage prn. HME changed. Oral care done. Resus. bag and back up trach at bedside. Vent and alarms checked and reset.
[2017-04-07 05:26] LABS: CREATININE 0.9 mg/dL (0.6-1.3); PHOSPHOROUS 2.5 mg/dL (2.5-4.9); POTASSIUM 3.6 mmol/L (3.5-5.1)
[2017-04-07 05:43] LABS: MAGNESIUM 1.8 mg/dL (1.8-2.4)
[2017-04-07] MEDS: NORMAL SALINE FLUSH 10 ML DISP.SYRIN IV SCH ×3 (06:00→21:53)
[2017-04-07] MEDS: CIPROFLOXACIN 0.3% OPHT DROP 2.5 ML BOTTLE EACHEYE SCH ×3 (06:00→21:51)
[2017-04-07] MEDS: METRONIDAZOLE 500 MG/NS 100ML 500 MG in PREMIXED 1 EACH IV SCH ×3 (06:12→21:52)
--- NOTE | 2017-04-07 07:20 | NUR ---
Trached patient was endorsed on CMV:Mosquera vent with the following settings of AC-14, Vt-450, PEEP+5, FIO2-35%. She is trached with Shiley#6 DCT trach: Secure and patent at midline. KNIFE SETTER used for cuff assessment. No signs of respiratory distress noted. Oral/ Trach care rendered, HME changed. Back up trach at bedside. Vent alarms on and audible. Will continue to monitor.
--- NOTE | 2017-04-07 07:30 | NUR ---
STATUS QUO. HOB UP 30DEGREES. OPENS EYES INVOLUNTARILY, LOOKS REDAND EDEMATOUS. CLOSED UP WITH A PAPER TAPE TEMPORARILY AND COVERED UP WITH 2X2 WET GAUZE. NPO. SR NO ECTOPY. BREATHING WELL ON THE VENT. SUCTION MODERATEAMOUNT, PT IS DROOLING MUCH ORALLY. AFEBRILE. HAS GENERALIZED EDME ALL OVER.
[2017-04-07 08:37] LABS: BAND % (MANUAL) 8 % (0-10); BASOPHILS % (MANUAL) 1 % (0-2); EOSINOPHILS % (MANUAL) 9 % (0-8); LYMPHOCYTES % (MANUAL) 23 % (20-40); MONOCYTES % (MANUAL) 7 % (2-10); NEUTROPHILS % (MANUAL) 52 % (42-75)
[2017-04-07] MEDS: NOREPINEPHRINE BITARTRATE 8 MG in IV DEXTROSE 5% 500 ML IV PRN (09:23)
[2017-04-07] MEDS: POTASSIUM CHLORIDE 10 MEQ in IV D5 1/2 NS 1000 ML 1,000 ML IV PRN (09:24)
[2017-04-07] MEDS: DEXTROSE 5% IV SCH ×2 (09:24→20:07)
[2017-04-07] MEDS: LEVETIRACETAM IV SCH ×2 (09:24→20:07)
[2017-04-07 09:35] LABS: ABG BASE EXCESS 0.5 mmol/L; ABG HCO3 26.9 mmol/L; ABG PH 7.324 (7.350-7.450); ABG PO2 88.7 mmHg (75.0-100.0); ABG SITE LEFT RADIAL; ABG TOTAL HEMOGLOBIN 9.5 G/dL (12.0-16.0); COHb 1.5 % (0.5-1.5); MetHb 0.5 % (0.0-1.5); O2Hb 94.7 % (94.0-97.0); VENT MODE VENT - A/C; VT, ABG 450 mL
[2017-04-07] MEDS: PHENOBARBITAL SODIUM 130 MG/1 ML DISP.SYRIN IV SCH ×2 (09:56→20:13)
[2017-04-07] MEDS: FAMOTIDINE. 20 MG/2 ML VIAL IV SCH ×2 (09:56→20:13)
[2017-04-07] MEDS: VITAMINS A AND D OINT TP SCH (09:57)
[2017-04-07] MEDS: NEOMY/BACITRAC/POLYMI OINT 28.35 GM TUBE TP SCH ×2 (09:57→20:13)
[2017-04-07] MEDS: MUPIROCIN 2% OINT 22 GM TUBE NS SCH ×2 (09:57→21:00)
[2017-04-07] MEDS: Z GUARD REMEDY PASTE 57 GM TUBE TOP SCH ×2 (09:58→20:16)
[2017-04-07] MEDS: COD LIVER OIL/ZINC OXIDE OINT 113 GM TUBE TOP SCH ×2 (09:59→20:16)
[2017-04-07] MEDS: MUPIROCIN 2% OINT 22 GM TUBE TP SCH ×2 (10:01→20:16)
[2017-04-07] MEDS: CEFTAZIDIME 2 G in IV DEXTROSE 5% 100 ML IV SCH ×2 (10:02→21:50)
--- NOTE | 2017-04-07 10:30 | NUR ---
SEEN AND EXAMINED BY DR LEZAMA AND DR WALLACE WITH NEW ORDERS. NO APPARENT DISTRESS NOTED. PT STILL ON VASOPRESSOR LEVOPHED AT 10MCG/MIN. VIA THE PICC LINE. SBP IS MAINTAINED ABLOVE 100.
[2017-04-07] MEDS: INSULIN REGULAR, HUMAN 300 UNIT/3 ML VIAL SQ PRN (12:07)
--- NOTE | 2017-04-07 16:00 | NUR ---
PM CARE RENDERED. NO DRAIN NOTED ON FLEXISEAL.
[2017-04-07] MEDS: POTASSIUM CHLORIDE 10 MEQ in IV D5W 1000ML 1,000 ML IV PRN (20:03)
[2017-04-07] MEDS: FLUCONAZOLE 400MG /NS 200ML IV 400 MG in PREMIXED 1 EACH IV SCH (20:09)
[2017-04-07] MEDS: OMEGA-3 FATTY ACIDS/FISH OIL CAPSULE GT SCH (20:13)
[2017-04-07] MEDS: COD LIVER OIL/ZINC OXIDE OINT 113 GM TUBE TOP PRN (20:15)
--- NOTE | 2017-04-07 20:35 | NUR ---
Pt rec'd on Mosquera settings AC 14, VT 450, FIO2-35% and PEEP+5. No resp. distress noted. Shiley 6 is patent and secure; B/U Shiley 6 and BVM at bedside. Pt to be monitored throughout the shift and PRN SX . Mosquera alarm parameters have been checked and remain audible at this time.
[2017-04-08] VITALS (95 sets, daily range): BP systolic 82–148; BP diastolic 35–101
[2017-04-08] MEDS: BLOOD SUGAR DIAGNOSTIC 1 EACH STRIP VI SCH ×4 (00:01→18:08)
[2017-04-08] MEDS: NOREPINEPHRINE BITARTRATE 8 MG in IV DEXTROSE 5% 500 ML IV PRN ×2 (01:22→13:53)
--- NOTE | 2017-04-08 05:11 | NUR ---
Pt remains on Mosquera with no changes made to the ventilator settings. No resp. distress noted throughout the shift. Shiley 6 remains patent and secure. B/U Shiley 6 and BVM remain at bedside. Pt appeared to tolerate ventilator settings well. Mosquera alarm parameters have been checked and remain audible.
[2017-04-08 05:19] LABS: BASOPHILS # (AUTO) 0.1 K/uL (0.0-8.0); BASOPHILS % (AUTO) 1.2 % (0.0-2.0); EOSINOPHILS # (AUTO) 0.4 K/uL (0.0-0.7); EOSINOPHILS % (AUTO) 8.1 % (0.0-7.0); HEMATOCRIT 28.2 % (37-47); HEMOGLOBIN 8.3 G/DL (12.0-16.0); LYMPHOCYTES # (AUTO) 1.5 K/UL (0.8-4.8); LYMPHOCYTES % (AUTO) 27.4 % (20.5-51.5); MEAN CORPUSCULAR HEMOGLOBIN 31.7 UUG (27.0-31.0); MEAN CORPUSCULAR HGB CONC 29 g/dL (32.0-37.0); MEAN CORPUSCULAR VOLUME 108.3 FL (81.0-99.0); MONOCYTES # (AUTO) 0.5 K/UL (0.1-1.30); MONOCYTES % (AUTO) 8.3 % (0.0-11.0); PLATELET COUNT (AUTO) 84 K/UL (150-450); RED BLOOD CELL COUNT(AUTO) 2.61 MIL/UL (4.2-5.4); WHITE BLOOD COUNT (AUTO) 5.5 K/UL (4.0-11.2)
[2017-04-08] MEDS: NORMAL SALINE FLUSH 10 ML DISP.SYRIN IV SCH ×3 (05:44→21:38)
[2017-04-08 05:45] LABS: BILIRUBIN,TOTAL 0.4 mg/dL (0.2-1.0); CREATININE 0.9 mg/dL (0.6-1.3); MAGNESIUM 1.8 mg/dL (1.8-2.4); PHOSPHOROUS 2.2 mg/dL (2.5-4.9); POTASSIUM 3.4 mmol/L (3.5-5.1); TOTAL PROTEIN, SERUM 7.1 g/dL (6.4-8.2)
[2017-04-08] MEDS: CIPROFLOXACIN 0.3% OPHT DROP 2.5 ML BOTTLE EACHEYE SCH ×3 (05:45→21:30)
[2017-04-08] MEDS: METRONIDAZOLE 500 MG/NS 100ML 500 MG in PREMIXED 1 EACH IV SCH ×3 (05:46→21:31)
--- NOTE | 2017-04-08 05:55 | NUR ---
Patient NPO held Insulin coverage; glucose 163.
--- NOTE | 2017-04-08 07:30 | NUR ---
RECIEVED PT LYING IN BED.HOB UP 30DEGRESS. . CONDITION IS THE SAME.
--- NOTE | 2017-04-08 08:00 | NUR ---
LEVOPHED DRIP INFUSING WELL AMD SBP MAINTAINED ABOVE 100SYSTOLIC.
[2017-04-08] MEDS: INSULIN REGULAR, HUMAN 300 UNIT/3 ML VIAL SQ PRN ×3 (08:37→18:17)
[2017-04-08] MEDS: NEOMY/BACITRAC/POLYMI OINT 28.35 GM TUBE TP SCH ×2 (09:04→21:00)
[2017-04-08] MEDS: FAMOTIDINE. 20 MG/2 ML VIAL IV SCH ×2 (09:04→21:29)
[2017-04-08] MEDS: MUPIROCIN 2% OINT 22 GM TUBE NS SCH ×2 (09:04→21:00)
[2017-04-08] MEDS: PHENOBARBITAL SODIUM 130 MG/1 ML DISP.SYRIN IV SCH ×2 (09:04→21:24)
[2017-04-08] MEDS: VITAMINS A AND D OINT TP SCH (09:05)
[2017-04-08] MEDS: Z GUARD REMEDY PASTE 57 GM TUBE TOP SCH ×2 (09:06→21:00)
[2017-04-08] MEDS: COD LIVER OIL/ZINC OXIDE OINT 113 GM TUBE TOP SCH ×2 (09:06→21:00)
[2017-04-08] MEDS: CEFTAZIDIME 2 G in IV DEXTROSE 5% 100 ML IV SCH ×2 (09:10→21:39)
[2017-04-08] MEDS: MUPIROCIN 2% OINT 22 GM TUBE TP SCH ×2 (09:11→21:00)
[2017-04-08] MEDS: DEXTROSE 5% IV SCH ×2 (09:54→21:38)
[2017-04-08] MEDS: LEVETIRACETAM IV SCH ×2 (09:54→21:38)
--- NOTE | 2017-04-08 10:00 | NUR ---
SUCTION SECRETIONS FREQUENTLY MODERATE AMOUNT OF WHITISH PLEGHM.
[2017-04-08] MEDS ORDERED: TPN/PPN PER PHARMACY IV PRN (11:30)
[2017-04-08] MEDS: POTASSIUM CHLORIDE 10 MEQ in IV D5W 1000ML 1,000 ML IV PRN ×2 (11:51→18:53)
--- NOTE | 2017-04-08 12:00 | NUR ---
TEMP IS 94.7F. [facility]
--- NOTE | 2017-04-08 13:24 | NUR ---
Clinical Pharmacy Note: TPN per Pharmacy Subjective: Patient is 66 y/o female with PMH respiratory failure, vent dependent with trach, Gt site cellulites, transferred from subacute due to hypotension. per MD notes; Shock likely hypovolemic and septic,Gtube site cellulitis and fistulous tract, GTube has been removed. Patient has been NPO x7 days on 04/08/17. Per RN patient had Blood from NGTsuction. Per Dietitian TF not appropriate at this time. Per Dietitian, TPN are not indicated for patient with respiratory failure. MD aware but wants to start TPN/PPN since NPO x7 days. As per Dietitian recommendation will start TPN/PPN today. As per deletion recommendation, will start D-10%,AA 4.25% @10mls/hr titrating to goal rate of 70 ml/hr for total 1680 ml volume, D10% =571 kcal, AA 4.25%= 75 gm protein= 302 kcal) Objective: Labs: Na+ 154 , K+ 3.4, Cl 154, CO2 29, BUN 5, Scr 0.9, Glucose 175 Ca++ 7.7 (corrected Ca++=9.86) Albumin 1.3, Mg++ 1.8, Phos 2.2, WBC 5.5, Plt 84 Temp 97.5 Wt: 254 lb Assessment/Plan: 1)As per deletion recommendation, will start D-10%,AA 4.25% @ 20mls/hr & increase rate every 8 hrs by 10 ml/hr to goal rate of 40 ml/hr for day one (to prevent re-feeding syndrome). Will decrease IVF (D5W + 10 meq kcl from 100ml/hr to 80 ml/hr when starting TPN 2)Bag # 1 will contain: trace elements 1ml, MVI 10ml, K phos 6 mmol/L. No KCL shall be added since chloride is high today 3)No lipids shall be started for today (plt =84). Will order TG level with am labs 4)Will continue same accucheck sliding scale for now. Will monitor glucose level in am (no insulin added to TPN yet). 5)Will order labs for am. 6) Will continue to follow TPN closely daily.
[2017-04-08] MEDS: POTASSIUM PHOSPHATE MM 5 MMOL in IV DEXTROSE 5% 100 ML IV SCH ×2 (13:37→15:26)
[2017-04-08] MEDS ORDERED: MVI ADULT IV PRN ×5 (17:00)
[2017-04-08] MEDS ORDERED: POTASSIUM PHOSPHATE MM IV PRN ×5 (17:00)
[2017-04-08] MEDS ORDERED: [UNRECOGNIZED DRUG - OTHER] IV PRN ×5 (17:00)
[2017-04-08] MEDS ORDERED: POTASSIUM CHLORIDE 10 MEQ in IV D5W 1000ML 1,000 ML IV PRN (17:00)
--- NOTE | 2017-04-08 17:00 | NUR ---
TPN BOTTLE N0 1 STARTED ORDERED AT 20ML/HR. MAIN IVF STILL GOING AND DROPPED DOWN TO 80ML/HR. LAST BS IS 157. COVERED WITH 11UNITS OF REGULAR INSULIN. LAST TEMP IS 97.5F.
--- NOTE | 2017-04-08 19:45 | NUR ---
Patient received on Mosquera settings AC 14, VT 450, FIO2-35% and PEEP+5. No resp. distress noted. Shiley 6 is patent and secure; Backup Shiley 6 and resusc. bag at bedside. Pt to be monitored throughout the shift and PRN SX . Mosquera alarm parameters have been checked and remain audible at this time.
[2017-04-08] MEDS: FLUCONAZOLE 400MG /NS 200ML IV 400 MG in PREMIXED 1 EACH IV SCH (20:37)
[2017-04-08] MEDS: OMEGA-3 FATTY ACIDS/FISH OIL CAPSULE GT SCH (21:00)
[2017-04-09] VITALS (95 sets, daily range): BP systolic 83–136; BP diastolic 28–83
--- NOTE | 2017-04-09 00:01 | NUR ---
Continue Levophed titration. Remains very edematous. Trach to vent.
[2017-04-09] MEDS: INSULIN REGULAR, HUMAN 300 UNIT/3 ML VIAL SQ PRN ×5 (00:30→23:47)
[2017-04-09] MEDS: BLOOD SUGAR DIAGNOSTIC 1 EACH STRIP VI SCH ×5 (00:36→23:44)
[2017-04-09 05:17] LABS: BASOPHILS % (AUTO) 0.1 % (0.0-2.0); EOSINOPHILS # (AUTO) 0.4 K/uL (0.0-0.7); EOSINOPHILS % (AUTO) 6.2 % (0.0-7.0); HEMATOCRIT 27.5 % (37-47); HEMOGLOBIN 8.5 G/DL (12.0-16.0); LYMPHOCYTES # (AUTO) 1.2 K/UL (0.8-4.8); LYMPHOCYTES % (AUTO) 19.9 % (20.5-51.5); MEAN CORPUSCULAR HEMOGLOBIN 33.1 UUG (27.0-31.0); MEAN CORPUSCULAR HGB CONC 31 g/dL (32.0-37.0); MEAN CORPUSCULAR VOLUME 107.3 FL (81.0-99.0); MONOCYTES # (AUTO) 0.4 K/UL (0.1-1.30); MONOCYTES % (AUTO) 6.4 % (0.0-11.0); NEUTROPHILS # (AUTO) 4.3 K/UL (1.8-8.9); NEUTROPHILS % (AUTO) 67.4 % (38.5-71.5); PLATELET COUNT (AUTO) 71 K/UL (150-450); RED BLOOD CELL COUNT(AUTO) 2.57 MIL/UL (4.2-5.4); WHITE BLOOD COUNT (AUTO) 6.3 K/UL (4.0-11.2)
[2017-04-09 05:19] LABS: BILIRUBIN,TOTAL 0.4 mg/dL (0.2-1.0); CREATININE 0.9 mg/dL (0.6-1.3); MAGNESIUM 1.5 mg/dL (1.8-2.4); PHOSPHOROUS 2.3 mg/dL (2.5-4.9); POTASSIUM 3.5 mmol/L (3.5-5.1); TOTAL PROTEIN, SERUM 7.1 g/dL (6.4-8.2)
[2017-04-09] MEDS: NOREPINEPHRINE BITARTRATE 8 MG in IV DEXTROSE 5% 500 ML IV PRN ×2 (05:39→19:58)
[2017-04-09] MEDS: CIPROFLOXACIN 0.3% OPHT DROP 2.5 ML BOTTLE EACHEYE SCH ×3 (06:00→22:18)
[2017-04-09] MEDS: NORMAL SALINE FLUSH 10 ML DISP.SYRIN IV SCH ×3 (06:00→22:16)
--- NOTE | 2017-04-09 06:00 | NUR ---
Okeefe catheter dislodged & replace.
[2017-04-09] MEDS: METRONIDAZOLE 500 MG/NS 100ML 500 MG in PREMIXED 1 EACH IV SCH ×3 (06:41→22:16)
[2017-04-09] MEDS: PHENOBARBITAL SODIUM 130 MG/1 ML DISP.SYRIN IV SCH ×2 (08:49→21:08)
[2017-04-09] MEDS: NEOMY/BACITRAC/POLYMI OINT 28.35 GM TUBE TP SCH ×2 (08:51→21:02)
[2017-04-09] MEDS: MUPIROCIN 2% OINT 22 GM TUBE NS SCH (08:52)
[2017-04-09] MEDS: VITAMINS A AND D OINT TP SCH (08:52)
[2017-04-09] MEDS: MUPIROCIN 2% OINT 22 GM TUBE TP SCH ×2 (09:14→21:04)
[2017-04-09] MEDS: CEFTAZIDIME 2 G in IV DEXTROSE 5% 100 ML IV SCH ×2 (09:14→22:57)
[2017-04-09] MEDS: Z GUARD REMEDY PASTE 57 GM TUBE TOP SCH ×2 (09:15→21:03)
[2017-04-09] MEDS: LEVETIRACETAM IV SCH ×2 (09:17→21:01)
[2017-04-09] MEDS: DEXTROSE 5% IV SCH ×2 (09:17→21:01)
[2017-04-09] MEDS: FAMOTIDINE. 20 MG/2 ML VIAL IV SCH ×2 (09:54→21:05)
[2017-04-09] MEDS ORDERED: MAGNESIUM SULFATE/D5W 100 ML IV SCH (10:15)
[2017-04-09] MEDS: POTASSIUM CHLORIDE 10 MEQ in IV D5W 1000ML 1,000 ML IV PRN (12:57)
[2017-04-09] MEDS: COD LIVER OIL/ZINC OXIDE OINT 113 GM TUBE TOP SCH ×2 (13:48→21:02)
[2017-04-09] MEDS ORDERED: POTASSIUM CHLORIDE 10 MEQ in IV D5W 1000ML 1,000 ML IV PRN ×2 (14:00→17:00)
[2017-04-09] MEDS: POTASSIUM PHOSPHATE MM 5 MMOL in IV DEXTROSE 5% 100 ML IV SCH ×2 (15:59→17:54)
[2017-04-09] MEDS ORDERED: AMINO ACID IV PRN ×4 (16:00)
[2017-04-09] MEDS ORDERED: [UNRECOGNIZED DRUG - OTHER] IV PRN ×4 (16:00)
[2017-04-09] MEDS ORDERED: MAGNESIUM SULFATE IV PRN ×10 (16:00→17:00)
[2017-04-09] MEDS ORDERED: POTASSIUM PHOSPHATE MM IV PRN ×10 (16:00→17:00)
--- NOTE | 2017-04-09 16:17 | NUR ---
Clinical Pharmacy Note: TPN per Pharmacy Subjective: Patient is 66 y/o female with PMH respiratory failure, vent dependent with trach, Gt site cellulites, transferred from subacute due to hypotension. per MD notes; Shock likely hypovolemic and septic,Gtube site cellulitis and fistulous tract, GTube has been removed. Patient has been NPO x7 days on 04/08/17. Per RN patient had Blood from NGTsuction. Per Dietitian TF not appropriate at this time. Per Dietitian, TPN are not indicated for patient with respiratory failure. MD aware but wanted to start TPN/PPN since NPO x7 days on 04/08/17. As per Dietitian recommendation will start TPN/PPN today. As per deletion recommendation, will start D-10%,AA 4.25% @10mls/hr titrating to goal rate of 70 ml/hr for total 1680 ml volume, D10% =571 kcal, AA 4.25%= 75 gm protein= 302 kcal) Objective: Labs: Na+ 153 , K+ 3.5, Cl 118, CO2 29, BUN 5, Scr 0.9, Glucose 179 Ca++ 7.2 (corrected Ca++=9.36) Albumin 1.3, Mg++ 1.5, Phos 2.3, WBC 5.3, Plt 71, TG 97 Temp 97.5 Wt: 254 lb Assessment/Plan: 1)As per dietitian recommendation, will continue D-10%,AA 4.25% @ 60mls/hr & increase rate every 4 hrs by 10 ml/hr to goal rate of 70 ml/hr for day two (to prevent re-feeding syndrome). Will decrease IVF (D5W + 10 meq kcl from 100ml/hr to 40 ml/hr AT 1700 then dc at 2100. 2)Bag # 2 will contain: trace elements 1ml, MVI 10ml, K phos 9 mmol/L, Mgso4 1 gm. Also, bolused Mg 1gm IVPB x1 & Kphos 10 mmol IVPB x1 today. Bottle # 3 will contain: kphos 9 mmol & Mgso4 1gm per liter. 3)No lipids shall be started for today (plt =7 & trending down). 4)Will continue same accucheck sliding scale for now. Will monitor glucose level. 5)Will order labs for am. As per dietitian recommendation will monitor lipid panel weekly 6) Will continue to follow TPN closely daily.
[2017-04-09] MEDS ORDERED: [UNRECOGNIZED DRUG - OTHER] IV PRN ×6 (17:00)
--- NOTE | 2017-04-09 17:55 | NUR ---
NO CHANGES MADE WITH VENT SETTINGS TODAY. ORAL CARE GIVEN. SUCTIONED NEEDED. CHANGED HME FILTER AND INNER CANNULA.
--- NOTE | 2017-04-09 18:23 | NUR ---
humulin 11 units given sq for accucheck 200 Addendum: 04/09/17 at 1823 by IVELISSE BAILEY RN Amended: Links added.
--- NOTE | 2017-04-09 19:30 | NUR ---
Report received. Patient comatose, trache to vent with same settings. Sat above 96%. On contact isolation for MRSA nares and GT site. Hypotensive. On continuous Levophed drip for BP support; see IV spread sheet for doses and rates. Assessment completed. Addendum: 04/10/17 at 0048 by QUINTEN STRANGE RN Amended: Links added.
[2017-04-09] MEDS: FLUCONAZOLE 400MG /NS 200ML IV 400 MG in PREMIXED 1 EACH IV SCH (20:00)
[2017-04-09] MEDS: OMEGA-3 FATTY ACIDS/FISH OIL CAPSULE GT SCH (21:05)
[2017-04-09] MEDS: IV NORMAL SALINE 250 ML IV PRN (21:45)
--- NOTE | 2017-04-09 22:00 | NUR ---
TPN rate increased to 70 ml. Main IV dc'd. Levophed drip titrated up to keep SBP above 90. Addendum: 04/10/17 at 0116 by QUINTEN STRANGE RN Amended: Links added.
[2017-04-10] VITALS (95 sets, daily range): BP systolic 82–150; BP diastolic 40–83
--- NOTE | 2017-04-10 | NUR ---
Hypothermic. Temp=94 orally. Theo woods turned on. No neuro changes. Addendum: 04/10/17 at 0042 by QUINTEN STRANGE RN Amended: Links added.
--- NOTE | 2017-04-10 04:00 | NUR ---
Temp=97. Theo woods turned off. Am care rendered. Levophed drip titrated down. BPs monitored closely. Addendum: 04/10/17 at 0703 by QUINTEN STRANGE RN Amended: Links added.
[2017-04-10] MEDS: NORMAL SALINE FLUSH 10 ML DISP.SYRIN IV SCH ×3 (05:08→22:08)
[2017-04-10] MEDS: METRONIDAZOLE 500 MG/NS 100ML 500 MG in PREMIXED 1 EACH IV SCH ×3 (05:09→22:09)
[2017-04-10] MEDS: CIPROFLOXACIN 0.3% OPHT DROP 2.5 ML BOTTLE EACHEYE SCH ×3 (05:09→21:28)
[2017-04-10 05:15] LABS: CREATININE 0.9 mg/dL (0.6-1.3); MAGNESIUM 1.8 mg/dL (1.8-2.4); PHOSPHOROUS 2.5 mg/dL (2.5-4.9); POTASSIUM 3.4 mmol/L (3.5-5.1)
[2017-04-10 05:27] LABS: BASOPHILS % (AUTO) 0.6 % (0.0-2.0); EOSINOPHILS # (AUTO) 0.3 K/uL (0.0-0.7); HEMATOCRIT 28.3 % (37-47); HEMOGLOBIN 8.6 G/DL (12.0-16.0); LYMPHOCYTES # (AUTO) 1.3 K/UL (0.8-4.8); LYMPHOCYTES % (AUTO) 24.7 % (20.5-51.5); MEAN CORPUSCULAR HEMOGLOBIN 32.9 UUG (27.0-31.0); MEAN CORPUSCULAR HGB CONC 30 g/dL (32.0-37.0); MEAN CORPUSCULAR VOLUME 108.5 FL (81.0-99.0); MONOCYTES # (AUTO) 0.3 K/UL (0.1-1.30); MONOCYTES % (AUTO) 5.9 % (0.0-11.0); NEUTROPHILS # (AUTO) 3.4 K/UL (1.8-8.9); NEUTROPHILS % (AUTO) 62.8 % (38.5-71.5); PLATELET COUNT (AUTO) 66 K/UL (150-450); RED BLOOD CELL COUNT(AUTO) 2.61 MIL/UL (4.2-5.4); WHITE BLOOD COUNT (AUTO) 5.3 K/UL (4.0-11.2)
[2017-04-10] MEDS: BLOOD SUGAR DIAGNOSTIC 1 EACH STRIP VI SCH ×4 (05:59→23:48)
[2017-04-10] MEDS: INSULIN REGULAR, HUMAN 300 UNIT/3 ML VIAL SQ PRN ×4 (06:04→23:49)
--- NOTE | 2017-04-10 07:15 | NUR ---
report received from Yash, 66 yr old female, here for sepsis since 03/31/17. patient is comatose but responsive to tactil stimuli. is very edematous all over. is receiving tpn via right upper arm piccline. also on levophed drip at 3mcg/min. IV NS on at TKO rate. lee catheter intact urine with adequate outpu. ekg sinus rhythm temp low side.gt site dressing dry. ngt remains with coffee ground output to low intermittent suction. Addendum: 04/10/17 at 0814 by IVELISSE BAILEY RN Amended: Links added.
--- NOTE | 2017-04-10 07:24 | NUR ---
PT RECEIVED TRACH TO VENT WITH SETTINGS OF AC14/450/35%/+ 5 OF PEEP. TRACH SECURED AND INTACT. AIRWAY PATENT. VENT ALARMS SET AND AUDIBLE.
[2017-04-10] MEDS ORDERED: AMINO ACID IV PRN ×4 (08:00)
[2017-04-10] MEDS ORDERED: [UNRECOGNIZED DRUG - OTHER] IV PRN ×4 (08:00)
[2017-04-10] MEDS ORDERED: POTASSIUM PHOSPHATE MM IV PRN ×10 (08:00→22:30)
[2017-04-10] MEDS ORDERED: MAGNESIUM SULFATE IV PRN ×10 (08:00→22:30)
[2017-04-10] MEDS: LEVETIRACETAM IV SCH ×2 (08:32→21:27)
[2017-04-10] MEDS: DEXTROSE 5% IV SCH ×2 (08:32→21:27)
[2017-04-10 08:47] LABS: ABG BASE EXCESS 0.2 mmol/L; ABG HCO3 26.7 mmol/L; ABG PCO2 53.4 mmHg (35.0-45.0); ABG PH 7.317 (7.350-7.450); ABG PO2 95.8 mmHg (75.0-100.0); ABG SITE RIGHT RADIAL; ABG TOTAL HEMOGLOBIN 8.8 G/dL (12.0-16.0); MetHb 0.5 % (0.0-1.5); O2Hb 94.6 % (94.0-97.0); VENT MODE VENT - A/C; VT, ABG 450 mL
[2017-04-10] MEDS: COD LIVER OIL/ZINC OXIDE OINT 113 GM TUBE TOP SCH ×2 (08:56→20:37)
[2017-04-10] MEDS: PHENOBARBITAL SODIUM 130 MG/1 ML DISP.SYRIN IV SCH ×2 (08:56→21:27)
[2017-04-10] MEDS: Z GUARD REMEDY PASTE 57 GM TUBE TOP SCH ×2 (08:56→20:37)
[2017-04-10] MEDS: NEOMY/BACITRAC/POLYMI OINT 28.35 GM TUBE TP SCH ×2 (08:58→20:39)
[2017-04-10] MEDS: VITAMINS A AND D OINT TP SCH (08:58)
[2017-04-10] MEDS: MUPIROCIN 2% OINT 22 GM TUBE TP SCH (08:58)
[2017-04-10] MEDS: FAMOTIDINE. 20 MG/2 ML VIAL IV SCH ×2 (09:00→20:40)
[2017-04-10] MEDS: CEFTAZIDIME 2 G in IV DEXTROSE 5% 100 ML IV SCH ×2 (10:18→22:26)
--- NOTE | 2017-04-10 12:45 | NUR ---
humulin 17 units given sq for accuchthad 259 Addendum: 04/10/17 at 1246 by IVELISSE BAILEY RN Amended: Links added.
--- NOTE | 2017-04-10 13:30 | NUR ---
seen by dr moran. report given to . will add levimir for hyperglycemia. Addendum: 04/10/17 at 1433 by IVELISSE BAILEY RN Amended: Links added.
[2017-04-10] MEDS: INSULIN DETEMIR 300 UNIT/3 ML CARTRIDGE SQ SCH ×2 (14:14→20:50)
--- NOTE | 2017-04-10 15:02 | NUR ---
Clinical Pharmacy Note: TPN per Pharmacy Subjective: Patient is 66 y/o female with PMH respiratory failure, vent dependent with trach, Gt site cellulites, transferred from subacute due to hypotension. per MD notes; Shock likely hypovolemic and septic,Gtube site cellulitis and fistulous tract, GTube has been removed. Patient has been NPO x7 days on 04/08/17. Per RN patient had Blood from NGT suction. Per Dietitian TF not appropriate at this time. Per Dietitian, TPN are not indicated for patient with respiratory failure. MD aware but wanted to start TPN/PPN since NPO x7 days on 04/08/17. As per Dietitian recommendation will start TPN/PPN today. As per deletion recommendation, will start D-10%,AA 4.25% @10mls/hr titrating to goal rate of 70 ml/hr for total 1680 ml volume, D10% =571 kcal, AA 4.25%= 75 gm protein= 302 kcal) Objective: Labs: Na+ 152 , K+ 3.4, Cl 117, CO2 29, BUN 6, Scr 0.9, Glucose 256 Ca++ 7.4 (corrected Ca++=9.56) Albumin 1.3 (04/09), Mg++ 1.8, Phos 2.5, Plt 66, TG 97 (04/09) Temp 97.7 Wt: 254 lb Assessment/Plan: 1)AA 4.25% Dextrose 10% final concentration running at 70 ml/hr (goal rate for now, however, as per dietition not providing optimal nutrition yet. Discuss daily with dietitian to see if any modification is needed. Dr. Mckeon approved dcing IVF & continuing TPN at 70 ml/hr for now (04/10). As per RN, MD will meet with family to discuss options. 2)Bag # 4 will contain: trace elements 1ml, MVI 10ml, K phos 12 mmol/L, Mgso4 1 gm/L 3)No lipids shall be started for today (plt =66 & trending down). 4)MD added Levemir 10 units SQ q12hr today. Will continue same accu check sliding scale for now. Will monitor glucose level (may need to add insulin regular to TPN bag- pharmacy will review) 5)Will order labs for am. As per dietitian recommendation will monitor lipid panel weekly 6) Will continue to follow TPN closely daily. Addendum: 04/10/17 at 1541 by ROCCO GODFREY ALSO BLOUSED 5 MMOL KPHOS IV X1 TODAY
--- NOTE | 2017-04-10 16:51 | NUR ---
PER DR HICKMAN VENT SETTING CHANGES WERE MADE. PT RESPIRATORY RATE INCREASED TO 16.
[2017-04-10] MEDS ORDERED: POTASSIUM PHOSPHATE MM 5 MMOL in IV DEXTROSE 5% 100 ML IV ONE (17:00)
[2017-04-10] MEDS: NOREPINEPHRINE BITARTRATE 8 MG in IV DEXTROSE 5% 500 ML IV PRN (18:02)
--- NOTE | 2017-04-10 18:03 | NUR ---
maricarmen 248, covered with 14 units harshadulin R SQ Addendum: 04/10/17 at 1803 by IVELISSE BAILEY RN Amended: Links added.
--- NOTE | 2017-04-10 19:22 | NUR ---
report given tob JTaecharatkij RN Addendum: 04/10/17 at 1922 by IVELISSE BAILEY RN Amended: Links added.
--- NOTE | 2017-04-10 19:30 | NUR ---
Report received. Patient comatose, with trache to vent with same settings; sat above 95%. On continuous Levophed drip for BP support. Contact isolation maintained for MRSA nares. Addendum: 04/11/17 at 0058 by QUINTEN STRANGE RN Amended: Links added.
--- NOTE | 2017-04-10 19:40 | NUR ---
Pt received on Mosquera vent with current settings of AC 16, VT 450, Peep +5, FiO2 35% Pt appears to be tolerating vent settings well at this time, no signs of respiratory distress noted at this time. Pt is trached with a Shiley 6 DCT trach, which is secure and patent. Suctioned pt with moderate amount of pale-white secretions. Ambu-bag and back-up trach is at bedside. Vent alarms functioning and audible. Will continue to monitor pt throughout shift.
[2017-04-10] MEDS: FLUCONAZOLE 400MG /NS 200ML IV 400 MG in PREMIXED 1 EACH IV SCH (20:37)
[2017-04-10] MEDS: OMEGA-3 FATTY ACIDS/FISH OIL CAPSULE GT SCH (20:40)
--- NOTE | 2017-04-10 21:25 | NUR ---
BPs labile; Levophed drip titrated down. BPs monitored closely.
[2017-04-10] MEDS ORDERED: [UNRECOGNIZED DRUG - OTHER] IV PRN ×6 (22:30)
--- NOTE | 2017-04-10 23:30 | NUR ---
Seen by Aster HOUSER for Dr. Pennie Villareal. Made aware of patient's condition. GT site seen by her. No new orders.
[2017-04-11] VITALS (92 sets, daily range): BP systolic 73–149; BP diastolic 37–84
[2017-04-11] MEDS: IV NORMAL SALINE 250 ML IV PRN (00:32)
[2017-04-11] MEDS: NORMAL SALINE FLUSH 10 ML DISP.SYRIN IV SCH ×3 (05:10→22:29)
[2017-04-11] MEDS: CIPROFLOXACIN 0.3% OPHT DROP 2.5 ML BOTTLE EACHEYE SCH ×3 (05:11→21:00)
[2017-04-11] MEDS: BLOOD SUGAR DIAGNOSTIC 1 EACH STRIP VI SCH ×4 (05:11→23:45)
[2017-04-11] MEDS: METRONIDAZOLE 500 MG/NS 100ML 500 MG in PREMIXED 1 EACH IV SCH ×3 (05:11→21:57)
[2017-04-11 05:26] LABS: BILIRUBIN,TOTAL 0.4 mg/dL (0.2-1.0); CREATININE 0.9 mg/dL (0.6-1.3); MAGNESIUM 1.8 mg/dL (1.8-2.4); PHOSPHOROUS 2.2 mg/dL (2.5-4.9); POTASSIUM 3.4 mmol/L (3.5-5.1); TOTAL PROTEIN, SERUM 7.5 g/dL (6.4-8.2)
[2017-04-11 05:51] LABS: BASOPHILS # (AUTO) 0.1 K/uL (0.0-8.0); BASOPHILS % (AUTO) 0.9 % (0.0-2.0); EOSINOPHILS # (AUTO) 0.3 K/uL (0.0-0.7); EOSINOPHILS % (AUTO) 5.7 % (0.0-7.0); HEMATOCRIT 28.6 % (37-47); HEMOGLOBIN 8.8 G/DL (12.0-16.0); LYMPHOCYTES # (AUTO) 1.5 K/UL (0.8-4.8); LYMPHOCYTES % (AUTO) 25.2 % (20.5-51.5); MEAN CORPUSCULAR HGB CONC 31 g/dL (32.0-37.0); MEAN CORPUSCULAR VOLUME 106.9 FL (81.0-99.0); MONOCYTES # (AUTO) 0.4 K/UL (0.1-1.30); MONOCYTES % (AUTO) 6.3 % (0.0-11.0); NEUTROPHILS # (AUTO) 3.8 K/UL (1.8-8.9); NEUTROPHILS % (AUTO) 61.9 % (38.5-71.5); PLATELET COUNT (AUTO) 57 K/UL (150-450); RED BLOOD CELL COUNT(AUTO) 2.68 MIL/UL (4.2-5.4); WHITE BLOOD COUNT (AUTO) 6.1 K/UL (4.0-11.2)
[2017-04-11] MEDS: INSULIN REGULAR, HUMAN 300 UNIT/3 ML VIAL SQ PRN ×4 (06:06→23:59)
[2017-04-11 06:23] LABS: EOSINOPHILS % (MANUAL) 7 % (0-8); LYMPHOCYTES % (MANUAL) 22 % (20-40); MONOCYTES % (MANUAL) 5 % (2-10); NEUTROPHILS % (MANUAL) 66 % (42-75)
--- NOTE | 2017-04-11 06:30 | NUR ---
Sat maintaining above 94% on current vent settings. Still on Levophed drip for BP support. Urine bcrqzm=900 ml x 12H. No neuro changes. Requires frequent oral suctioning for frothy white secretions. Contact isolation maintained. Addendum: 04/11/17 at 0707 by QUINTEN STRANGE RN Amended: Links added.
--- NOTE | 2017-04-11 07:40 | NUR ---
PT CONT ON FULL VENT SUPPORT. PT VENT'D VIA TRACH TUBE SH6DCT, VENT SETTINGS AC16 450 VT PEEP+5 35%. NO VENT WEANING TODAY. BS DIM SYEDA. LAVAGE/SXN'ING PRN. BVM BACKUP TRACH AT BEDSIDE. VENT ALARMS AUDIBLE CHECKED AND RESET.
--- NOTE | 2017-04-11 08:25 | NUR ---
PT'S FAMILY HAD MEETING WITH DR. HORTON IN REGARDING THE PLAN OF CARE.
[2017-04-11] MEDS: LEVETIRACETAM IV SCH ×2 (08:30→20:59)
[2017-04-11] MEDS: DEXTROSE 5% IV SCH ×2 (08:30→20:59)
[2017-04-11] MEDS: PHENOBARBITAL SODIUM 130 MG/1 ML DISP.SYRIN IV SCH ×2 (08:31→21:07)
[2017-04-11] MEDS: FAMOTIDINE. 20 MG/2 ML VIAL IV SCH ×2 (08:31→20:59)
[2017-04-11] MEDS: Z GUARD REMEDY PASTE 57 GM TUBE TOP SCH ×2 (08:32→21:00)
[2017-04-11] MEDS: VITAMINS A AND D OINT TP SCH (08:32)
[2017-04-11] MEDS: COD LIVER OIL/ZINC OXIDE OINT 113 GM TUBE TOP SCH ×2 (08:34→20:59)
[2017-04-11] MEDS: NEOMY/BACITRAC/POLYMI OINT 28.35 GM TUBE TP SCH ×2 (08:34→21:01)
[2017-04-11] MEDS: INSULIN DETEMIR 300 UNIT/3 ML CARTRIDGE SQ SCH ×2 (08:37→21:04)
[2017-04-11] MEDS: CEFTAZIDIME 2 G in IV DEXTROSE 5% 100 ML IV SCH ×2 (08:38→22:29)
[2017-04-11 09:57] LABS: ABG HCO3 23.8 mmol/L; ABG PCO2 45.5 mmHg (35.0-45.0); ABG PH 7.336 (7.350-7.450); ABG PO2 89.3 mmHg (75.0-100.0); ABG SITE LEFT RADIAL; ABG TOTAL HEMOGLOBIN 8.5 G/dL (12.0-16.0); COHb 1.8 % (0.5-1.5); MetHb 0.5 % (0.0-1.5); O2Hb 94.5 % (94.0-97.0); VENT MODE VENT - A/C 16; VT, ABG 450 mL
[2017-04-11] MEDS ORDERED: MAGNESIUM SULFATE IV PRN ×20 (11:00→13:00)
[2017-04-11] MEDS ORDERED: INSULIN REGULAR IV PRN ×20 (11:00→13:00)
[2017-04-11] MEDS ORDERED: [UNRECOGNIZED DRUG - OTHER] IV PRN ×10 (11:00→13:00)
[2017-04-11] MEDS ORDERED: POTASSIUM PHOSPHATE MM IV PRN ×20 (11:00→13:00)
[2017-04-11] MEDS ORDERED: [UNRECOGNIZED DRUG - OTHER] IV PRN ×10 (11:30→13:00)
--- NOTE | 2017-04-11 15:30 | NUR ---
Clinical Pharmacy Note: TPN per Pharmacy Subjective: Patient is 66 y/o female with PMH respiratory failure, vent dependent with trach, Gt site cellulites, transferred from subacute due to hypotension. per MD notes; Shock likely hypovolemic and septic,Gtube site cellulitis and fistulous tract, GTube has been removed. Patient has been NPO x7 days on 04/08/17. Per RN patient had Blood from NGT suction. Per Dietitian TF not appropriate at this time. Per Dietitian, TPN are not indicated for patient with respiratory failure. MD aware but wanted to start TPN/PPN since NPO x7 days on 04/08/17. As per Dietitian recommendation will start TPN/PPN 04/08. As per deletion recommendation, will start D-10%,AA 4.25% @10mls/hr titrating to goal rate of 70 ml/hr for total 1680 ml volume, D10% =571 kcal, AA 4.25%= 75 gm protein= 302 kcal) Objective: Labs: Na+ 148 , K+ 3.4, Cl 115, CO2 30, BUN 10, Scr 0.9, Glucose 288 Ca++ 7.7 (corrected Ca++=9.94) Albumin 1.2, Mg++ 1.8, Phos 2.2, Plt 57, TG 97 (04/09) Temp 97.3 Wt: 254 lb Assessment/Plan: 1)AA 4.25% Dextrose 10% final concentration running at 70 ml/hr (goal rate for now, however, as per dietition not providing optimal nutrition yet. Discuss daily with dietitian to see if any modification is needed. Dr. Mckeon approved dcing IVF & continuing TPN at 70 ml/hr for now (04/10). As per RN, MD will meet with family to discuss options. 2)Bag # 5 will contain: K phos 15 mmol/L, MgSO4 0.5 gm/L, 15 units reg insulin Bag #6 will contain: trace elements 1ml, MVI 10ml, Kphos 12mmol/L, MgSO4 1gm, 15units reg insulin 3)No lipids shall be started for today (plt =57 & trending down). 4)MD added Levemir 10 units SQ q12hr today. Will continue same accu check sliding scale for now. Will continue monitor glucose level (added insulin regular 15 units to each TPN bag for now) 5)Will order labs for am. As per dietitian recommendation will monitor lipid panel weekly 6) Will continue to follow TPN closely daily. Addendum: 04/10/17 at 1541 by ROCCO GODFREY ALSO BLOUSED 5 MMOL KPHOS IV X1 TODAY
--- NOTE | 2017-04-11 16:00 | NUR ---
DR HICKMAN CAME TO ASSESS THE PATIENT.
[2017-04-11] MEDS: NOREPINEPHRINE BITARTRATE 8 MG in IV DEXTROSE 5% 500 ML IV PRN (16:21)
--- NOTE | 2017-04-11 18:00 | NUR ---
THE PT HAS BEEN SEEN BY FAMILY MEMBER, UPDATED WITH PT'S CONDITION AND PLAN OF CARE.
--- NOTE | 2017-04-11 19:23 | NUR ---
NO CHANGES NOTED. NO S/S OF RESPIRATORY DISTRESS/PAIN NOTED. PICC LINE INTACT/PATENT. ALL SAFETY NEEDS ARE MET.
[2017-04-11] MEDS: FLUCONAZOLE 400MG /NS 200ML IV 400 MG in PREMIXED 1 EACH IV SCH (19:45)
--- NOTE | 2017-04-11 20:00 | NUR ---
trach to vent with same settings.maintaining saturation above 94%.suction patient orally and via trach with large amount of clear white oral secretions. Addendum: 04/11/17 at 2301 by KAREN WILSON RN Amended: Links added.
[2017-04-11] MEDS: OMEGA-3 FATTY ACIDS/FISH OIL CAPSULE GT SCH (20:59)
--- NOTE | 2017-04-11 21:00 | NUR ---
h and h with in parameters .no sign and symptoms of bleeding . Addendum: 04/12/17 at 0011 by KAREN WILSON RN Amended: Links added.
--- NOTE | 2017-04-11 22:00 | NUR ---
NPO patinet on TPN , with right Nare NGT to low intermittent wall suction . Addendum: 04/12/17 at 0008 by KAREN WILSON RN Amended: Links added.
--- NOTE | 2017-04-11 22:30 | NUR ---
pt on norepinephrine drip titrated to keep SBP >90 mm/hg.continue to monitor vitals q15 min . Addendum: 04/12/17 at 0016 by KAREN WILSON RN Amended: Links added.
--- NOTE | 2017-04-11 23:35 | NUR ---
PATIENT RECEIVED ON MEJIA VENT WITH THE FOLLOWING SETTINGS: AC 14, VT 450, PEEP +5, FIO2 35%. PATIENT IS TOLERATING CURRENT VENT SETTINGS WELL AT THIS TIME. PATIENT HAS A SHILEY 6 DCT TRACH. TRACH IS PROPERLY IN PLACE AND SECURED WITH TRACH TIES. ORAL CARE DONE. SUCTIONED SMALL AMOUNTS OF WHITE SECRETIONS. HME CHANGED, PRN. VENT ALARMS ARE ON AND AUDIBLE. VENT IS PLUGGED IN THE RED OUTLET. NO VENT CHANGES MADE AT THIS TIME. NO SOB NOTED. WILL CONTINUE TO MONITOR.
[2017-04-12] VITALS (95 sets, daily range): BP systolic 76–161; BP diastolic 39–76
--- NOTE | 2017-04-12 | NUR ---
no new skin breakdown noted.remedy z-guard applied to sacral area .Desitin to buttocks ,perineal area.turned and reposition q2 and elevated upper and lower extremities with pillows ,bilateral heels offloaded . Addendum: 04/12/17 at 0305 by KAERN WILSON RN Amended: Links added.
[2017-04-12] MEDS ORDERED: MAGNESIUM SULFATE IV PRN ×12 (03:00→18:00)
[2017-04-12] MEDS ORDERED: POTASSIUM PHOSPHATE MM IV PRN ×12 (03:00→18:00)
[2017-04-12] MEDS ORDERED: INSULIN REGULAR IV PRN ×12 (03:00→18:00)
[2017-04-12] MEDS ORDERED: [UNRECOGNIZED DRUG - OTHER] IV PRN ×7 (03:00)
[2017-04-12] MEDS: METRONIDAZOLE 500 MG/NS 100ML 500 MG in PREMIXED 1 EACH IV SCH ×3 (05:11→21:25)
[2017-04-12] MEDS: NORMAL SALINE FLUSH 10 ML DISP.SYRIN IV SCH ×3 (05:12→21:31)
[2017-04-12] MEDS: CIPROFLOXACIN 0.3% OPHT DROP 2.5 ML BOTTLE EACHEYE SCH ×3 (05:12→21:11)
[2017-04-12] MEDS: IV NORMAL SALINE 250 ML IV PRN (05:16)
[2017-04-12 05:17] LABS: PHOSPHOROUS 2.5 mg/dL (2.5-4.9); POTASSIUM 3.4 mmol/L (3.5-5.1)
[2017-04-12] MEDS: BLOOD SUGAR DIAGNOSTIC 1 EACH STRIP VI SCH ×3 (06:18→17:25)
[2017-04-12] MEDS: INSULIN REGULAR, HUMAN 300 UNIT/3 ML VIAL SQ PRN ×3 (06:20→18:32)
[2017-04-12] MEDS: DEXTROSE 5% IV SCH ×2 (09:10→20:54)
[2017-04-12] MEDS: PHENOBARBITAL SODIUM 130 MG/1 ML DISP.SYRIN IV SCH ×2 (09:10→20:54)
[2017-04-12] MEDS: LEVETIRACETAM IV SCH ×2 (09:10→20:54)
[2017-04-12] MEDS: FAMOTIDINE. 20 MG/2 ML VIAL IV SCH ×2 (09:10→20:55)
[2017-04-12] MEDS: VITAMINS A AND D OINT TP SCH (09:11)
[2017-04-12] MEDS: NEOMY/BACITRAC/POLYMI OINT 28.35 GM TUBE TP SCH ×2 (09:12→21:09)
[2017-04-12] MEDS: Z GUARD REMEDY PASTE 57 GM TUBE TOP SCH ×2 (09:12→20:55)
[2017-04-12] MEDS: COD LIVER OIL/ZINC OXIDE OINT 113 GM TUBE TOP SCH ×2 (09:13→21:09)
[2017-04-12] MEDS: INSULIN DETEMIR 300 UNIT/3 ML CARTRIDGE SQ SCH ×2 (09:15→20:57)
--- NOTE | 2017-04-12 10:00 | NUR ---
DR HICKMAN SEEN THE PT, REPORT GIVEN TO THE
[2017-04-12] MEDS: CEFTAZIDIME 2 G in IV DEXTROSE 5% 100 ML IV SCH ×2 (10:55→22:08)
--- NOTE | 2017-04-12 11:05 | NUR ---
ESTEFANÍA met with patient's brother Phong Zhou yesterday, who wanted to discuss options for the level of care for patient. ESETFANÍA allowed Phong to express his thoughts and feelings, and then provided education on the Preferred Intensity of Care that had been filled out when patient was on subacute, and the breakdown of the treatment options for patient. Per Phong's request, ESTEFANÍA also provided education on hospice services. Phong thanked ESTEFANÍA for her time, and stated that he will be talking to his father (patient's conservator) later on today, after which they may want to schedule a meeting with the doctor to discuss their options/decision. ESTEFANÍA offered her ongoing support, which Phong stated he would appreciate. Phong stated that he will contact this SW soon to ask for her assistance in coordinating with the doctors. ESTEFANÍA agreed. ESTEFANÍA met with Subacute Director Josette and informed her of above.
--- NOTE | 2017-04-12 11:16 | NUR ---
SW met with patient's father yesterday, who brought in a letter from [facility], requesting information for patient's case. SW gathered the information required and mailed it to [facility]: [facility] [address] [place] [address]
[2017-04-12 12:01] LABS: BASOPHILS % (AUTO) 0.5 % (0.0-2.0); EOSINOPHILS # (AUTO) 0.3 K/uL (0.0-0.7); HEMATOCRIT 28.9 % (37-47); HEMOGLOBIN 8.7 G/DL (12.0-16.0); LYMPHOCYTES # (AUTO) 1.8 K/UL (0.8-4.8); MEAN CORPUSCULAR HEMOGLOBIN 33.2 UUG (27.0-31.0); MEAN CORPUSCULAR HGB CONC 30 g/dL (32.0-37.0); MEAN CORPUSCULAR VOLUME 110.2 FL (81.0-99.0); MONOCYTES # (AUTO) 0.4 K/UL (0.1-1.30); MONOCYTES % (AUTO) 5.9 % (0.0-11.0); NEUTROPHILS # (AUTO) 3.9 K/UL (1.8-8.9); NEUTROPHILS % (AUTO) 60.6 % (38.5-71.5); PLATELET COUNT (AUTO) 62 K/UL (150-450); RED BLOOD CELL COUNT(AUTO) 2.62 MIL/UL (4.2-5.4); WHITE BLOOD COUNT (AUTO) 6.4 K/UL (4.0-11.2)
--- NOTE | 2017-04-12 12:38 | NUR ---
ESTEFANÍA met with Dr. Louis and Dr. Gilbert, and discussed patient's family's request for a family meeting. A family meeting was scheduled for tomorrow, 04/13/17 at 12:30pm with Dr. Louis. ESTEFANÍA spoke with patient's brother Phong [phone] to inform them of the meeting date/time, and Phong was in agreement. He stated that he and his father will be in attendance. ESTEFANÍA also informed subacute director Josette, who will also be in attendance, along with this ESTEFANÍA.
--- NOTE | 2017-04-12 13:00 | NUR ---
DR WALLACE SEEN THE PT, REPORT GIVEN TO THE DRZeinab ADVISED DR WALLACE THAT SUBACUTE S/W WANTED TO TALK TO THE DR. Addendum: 04/12/17 at 1656 by BARTOLO SIU RN PER DR. WALLACE D/C THE INSULIN CUSTOM SLIDING SCALE TO THE MILD INSULIN R SLIDING SCALE
[2017-04-12 13:26] LABS: BAND % (MANUAL) 3 % (0-10); EOSINOPHILS % (MANUAL) 4 % (0-8); LYMPHOCYTES % (MANUAL) 24 % (20-40); MONOCYTES % (MANUAL) 6 % (2-10); NEUTROPHILS % (MANUAL) 63 % (42-75)
--- NOTE | 2017-04-12 16:08 | NUR ---
Clinical Pharmacy Note: TPN per Pharmacy Subjective: Patient is 66 y/o female with PMH respiratory failure, vent dependent with trach, Gt site cellulites, transferred from subacute due to hypotension. per MD notes; Shock likely hypovolemic and septic,Gtube site cellulitis and fistulous tract, GTube has been removed. Patient has been NPO x7 days on 04/08/17. Per RN patient had Blood from NGT suction. Per Dietitian TF not appropriate at this time. Per Dietitian, TPN are not indicated for patient with respiratory failure. MD aware but wanted to start TPN/PPN since NPO x7 days on 04/08/17. As per Dietitian recommendation will start TPN/PPN 04/08. As per deletion recommendation, will increase D-10%,AA 4.25% @10mls/hr titrating to goal rate of 90 ml/hr for total 2160 ml volume, D10% =734 kcal, AA 4.25%= 91.8 gm protein= 367 kcal) Objective: Labs: Na+ 149 , K+ 3.4, Cl 115, CO2 29, BUN 10, Scr 1.0, Glucose 176 Ca++ 7.8 (corrected Ca++=9.94) Albumin 1.2 (04/11), Mg++ 2.0, Phos 2.5, Plt 62, TG 97 (04/09) Temp 97.5 Wt: 254 lb Assessment/Plan: 1)AA 4.25% Dextrose 10% final concentration running at 70 ml/hr (new goal rate of 90ml/hr, increase as tolerable by 10ml/hr q8hr until goal). As per RN and SW notes, MD will meet with family to discuss options 2)Bag # 7 will contain: K phos 15 mmol/L, MgSO4 0.5 gm/L, 15 units reg insulin Bag # 8 will contain: trace elements 1ml, MVI 10ml, 15units reg insulin 3)Per health and social care teacher recommendation and Dr. Dorinda lemons, will start intralipids 20% 250ml to run over 24hrs every other day. 4)MD increased Levemir from 10 to 16 units SQ q12hr today. Will continue same accu check sliding scale for now. Will continue monitor glucose level (insulin regular 15 units in each TPN bag as well ) 5)Will order labs for am. As per dietitian recommendation will monitor lipid panel weekly 6) Will continue to follow TPN closely daily.
[2017-04-12] MEDS ORDERED: DEXTROSE 50% 50 ML DISP.SYRIN IV PRN (17:00)
--- NOTE | 2017-04-12 17:39 | NUR ---
PT REMAINS ON MECHANICAL VENTILATION, NO VENT CHANGES MADE, NO SOB NOTED. TOLERATING WELL AT THIS TIME. HAS MINIMAL AMOUNT OF PALE YELLOW THICK SECRETIONS. ALARMS ARE ON AND AUDIBLE, BVM AND BACK UP TRACH AT BEDSIDE. WILL CONTINUE TO MONITOR.
[2017-04-12] MEDS ORDERED: IV FAT EMULSIONS 20% 250 ML IV ONE (18:00)
[2017-04-12] MEDS ORDERED: [UNRECOGNIZED DRUG - OTHER] IV PRN ×5 (18:00)
[2017-04-12] MEDS: NOREPINEPHRINE BITARTRATE 8 MG in IV DEXTROSE 5% 500 ML IV PRN (18:24)
[2017-04-12] MEDS: FLUCONAZOLE 400MG /NS 200ML IV 400 MG in PREMIXED 1 EACH IV SCH (19:57)
--- NOTE | 2017-04-12 20:00 | NUR ---
Appears comfortable on current vent settings. Small thick secretions from trach, at times foaming from mouth. Frequent oral care rendered. PICC line RUE intact; Remains Levophed-dependent, titrating drip to achieve SBP parameter above 90 mmHg. Maintained on contact isolation. On multiple IV antibiotics. TPN in progress, rate increased to 80 ml/hr with goal 90. NG tube patent, to low suction with pale brown gastric output. Nursing comfort measures observed at all times. Please see CCU flowsheet for full assessment and clinical data.
--- NOTE | 2017-04-12 20:15 | NUR ---
PT RECEIVED ON MEJIA VENT. CURRENT VENT SETTINGS ARE AC 16 VT 450 PEEP 5 FIO2 35%. NO CHANGES MADE AT THIS TIME. VENT CHECK DONE. ALARMS CHECKED, ARE ON AND FUNCTIONING PROPERLY. SH. 6DCT TRACH IS PATENT AND SECURED WITH FOAM TRACH TIES. ORAL CARE DONE. SUCTIONED SMALL AMOUNT THIN WHITE SECRETIONS. HME CHANGED NEEDED. VENT IS PLUGGED INTO RED EMERGENCY OUTLET. NO S/S OF RESPIRATORY DISTRESS OBSERVED AT THIS TIME. WILL CONTINUE TO MONITOR THROUGHOUT SHIFT.
[2017-04-12] MEDS: OMEGA-3 FATTY ACIDS/FISH OIL CAPSULE GT SCH (21:08)
[2017-04-13] VITALS (50 sets, daily range): BP systolic 83–144; BP diastolic 45–78
[2017-04-13] MEDS: INSULIN REGULAR, HUMAN 300 UNIT/3 ML VIAL SQ PRN ×3 (00:06→11:58)
[2017-04-13] MEDS: BLOOD SUGAR DIAGNOSTIC 1 EACH STRIP VI SCH ×3 (00:14→11:54)
[2017-04-13] MEDS ORDERED: INSULIN REGULAR IV PRN ×5 (05:00)
[2017-04-13] MEDS ORDERED: HUMAN IV PRN ×5 (05:00)
[2017-04-13] MEDS ORDERED: [UNRECOGNIZED DRUG - OTHER] IV PRN ×5 (05:00)
[2017-04-13] MEDS ORDERED: MVI ADULT IV PRN ×5 (05:00)
[2017-04-13 05:21] LABS: BASOPHILS % (AUTO) 0.7 % (0.0-2.0); EOSINOPHILS # (AUTO) 0.3 K/uL (0.0-0.7); EOSINOPHILS % (AUTO) 5.8 % (0.0-7.0); HEMATOCRIT 24.5 % (37-47); HEMOGLOBIN 7.8 G/DL (12.0-16.0); LYMPHOCYTES % (AUTO) 17.8 % (20.5-51.5); MEAN CORPUSCULAR HEMOGLOBIN 35.6 UUG (27.0-31.0); MEAN CORPUSCULAR HGB CONC 32 g/dL (32.0-37.0); MEAN CORPUSCULAR VOLUME 112.4 FL (81.0-99.0); MONOCYTES # (AUTO) 0.3 K/UL (0.1-1.30); MONOCYTES % (AUTO) 4.6 % (0.0-11.0); NEUTROPHILS # (AUTO) 4.1 K/UL (1.8-8.9); NEUTROPHILS % (AUTO) 71.1 % (38.5-71.5); PLATELET COUNT (AUTO) 76 K/UL (150-450); WHITE BLOOD COUNT (AUTO) 5.7 K/UL (4.0-11.2)
[2017-04-13 05:28] LABS: RED BLOOD CELL COUNT(AUTO) 2.18 MIL/UL (4.2-5.4)
[2017-04-13 05:34] LABS: CREATININE 0.9 mg/dL (0.6-1.3); MAGNESIUM 1.9 mg/dL (1.8-2.4); PHOSPHOROUS 2.3 mg/dL (2.5-4.9); POTASSIUM 3.2 mmol/L (3.5-5.1)
[2017-04-13] MEDS: CIPROFLOXACIN 0.3% OPHT DROP 2.5 ML BOTTLE EACHEYE SCH (05:44)
[2017-04-13] MEDS: METRONIDAZOLE 500 MG/NS 100ML 500 MG in PREMIXED 1 EACH IV SCH (05:44)
[2017-04-13] MEDS: NORMAL SALINE FLUSH 10 ML DISP.SYRIN IV SCH (05:45)
--- NOTE | 2017-04-13 06:30 | NUR ---
General condition unchanged. Remains on levophed drip. TPN now at goal rate of 90 ml/hr. Blood glucose remains high despite insulin in TPN and coverages, will need to address. Please see CCU flowsheet for trends and clinical data. called for critical lab, no order to transfuse.
[2017-04-13] MEDS: DEXTROSE 5% IV SCH (08:50)
[2017-04-13] MEDS: PHENOBARBITAL SODIUM 130 MG/1 ML DISP.SYRIN IV SCH (08:50)
[2017-04-13] MEDS: LEVETIRACETAM IV SCH (08:50)
[2017-04-13] MEDS: FAMOTIDINE. 20 MG/2 ML VIAL IV SCH (08:51)
[2017-04-13] MEDS: COD LIVER OIL/ZINC OXIDE OINT 113 GM TUBE TOP SCH (08:52)
[2017-04-13] MEDS: Z GUARD REMEDY PASTE 57 GM TUBE TOP SCH (08:52)
[2017-04-13] MEDS: VITAMINS A AND D OINT TP SCH (08:53)
[2017-04-13] MEDS: NEOMY/BACITRAC/POLYMI OINT 28.35 GM TUBE TP SCH (08:53)
[2017-04-13] MEDS: INSULIN DETEMIR 300 UNIT/3 ML CARTRIDGE SQ SCH (09:18)
[2017-04-13] MEDS: CEFTAZIDIME 2 G in IV DEXTROSE 5% 100 ML IV SCH (09:46)
[2017-04-13] MEDS ORDERED: MORPHINE SULFATE 20 MG/1 ML ORAL LIQ. PO PRN ×2 (13:30→14:15)
--- NOTE | 2017-04-13 13:30 | NUR ---
PT PLACED ON COMFORT CARE PER DR HORTON AND DOWNGRADED TO HALEY STATUS SECONDARY TO TRACH TO VENT. MOST OF THE TX'S DISCONTINUED PER MD ORDER. FAMILY CONFERENCE HELD WITH DR HORTON AND FAMILY DECIDED TO BEGIN COMFORT CARE.
--- NOTE | 2017-04-13 14:23 | NUR ---
Family meeting held today. Present at the meeting were patient's father (conservator) Paolo Zhou, patient's brother Phong Zhou, Subacute Director Joestte Lynn, ESTEFANÍA Bourne, and Dr. Seth. Dr. Seth discussed patient's current medical condition, along with treatment options. Family's questions were addressed by Dr. Seth, after which the family agreed on palliative care for patient. The plan is for patient to be transferred back up to Subacute for palliative care.
--- NOTE | 2017-04-13 17:48 | NUR ---
PT TRANSFERRED BACK TO SUBACUTE TO CONTINUE COMFORT MEASURES.
[2017-04-13] MEDS ORDERED: FIBERSOURCE HN 1000ML LIQUID GT PRN (18:45)
== END 2017-04-13 17:00 | DRG 870 ==
LOC: ER 13:43 → CCU 15:17
PROVIDERS: ADMIT Internal Medicine; ATTEND Internal Medicine
PROC: 5A1955Z Respiratory Ventilation, Greater than 96 Consecutive Hours (ICD-10-PCS; principal; 2017-03-31)
PROC: 02HV33Z Insertion of Infusion Device into Superior Vena Cava, Percutaneous Approach (ICD-10-PCS; 2017-03-31)
PROC: 30233N1 Transfusion of Nonautologous Red Blood Cells into Peripheral Vein, Percutaneous Approach (ICD-10-PCS; 2017-03-31)
DX: A41.9 Sepsis, unspecified organism (principal); R57.1 Hypovolemic shock; Z99.11 Dependence on respirator [ventilator] status; E43 Unspecified severe protein-calorie malnutrition; K31.6 Fistula of stomach and duodenum; J90 Pleural effusion, not elsewhere classified; J15.1 Pneumonia due to Pseudomonas; R65.21 Severe sepsis with septic shock; J96.11 Chronic respiratory failure with hypoxia; R53.2 Functional quadriplegia; E87.0 Hyperosmolality and hypernatremia; R18.8 Other ascites; L03.311 Cellulitis of abdominal wall; K94.22 Gastrostomy infection; Z68.41 Body mass index [BMI] 40.0-44.9, adult; J96.12 Chronic respiratory failure with hypercapnia; K92.2 Gastrointestinal hemorrhage, unspecified; J98.11 Atelectasis; B48.8 Other specified mycoses; N39.0 Urinary tract infection, site not specified; I42.9 Cardiomyopathy, unspecified; Z51.5 Encounter for palliative care; Z66 Do not resuscitate; Z93.0 Tracheostomy status; S06.9X0S Unspecified intracranial injury without loss of consciousness, sequela; Z22.322 Carrier or suspected carrier of Methicillin resistant Staphylococcus aureus; Z98.2 Presence of cerebrospinal fluid drainage device; Z87.01 Personal history of pneumonia (recurrent); V09.9XXS Pedestrian injured in unspecified transport accident, sequela; Z79.899 Other long term (current) drug therapy; Z93.1 Gastrostomy status; E66.01 Morbid (severe) obesity due to excess calories; Z71.3 Dietary counseling and surveillance; Z74.01 Bed confinement status; Z88.0 Allergy status to penicillin; Z88.2 Allergy status to sulfonamides; Z93.3 Colostomy status; R13.10 Dysphagia, unspecified; E86.1 Hypovolemia; E87.6 Hypokalemia; E11.9 Type 2 diabetes mellitus without complications; G40.909 Epilepsy, unspecified, not intractable, without status epilepticus; E83.39 Other disorders of phosphorus metabolism; F07.81 Postconcussional syndrome; Z87.440 Personal history of urinary (tract) infections; N85.8 Other specified noninflammatory disorders of uterus; M21.372 Foot drop, left foot; M21.371 Foot drop, right foot; H10.9 Unspecified conjunctivitis; Z79.4 Long term (current) use of insulin; D69.6 Thrombocytopenia, unspecified; D64.9 Anemia, unspecified
CPT/HCPCS: 36415; 36569; 36600; 70030-TC; 71010; 74000; 76604; 76700; 83605; 83615; 83735; 83986; 84100; 84155; 84478; 85018; 85025; 85730; 86850; 86900; 86901; 86920; 87040; 87070; 87077; 87086; 93005; 94002; 94003; A4663; C1751; J0456; J0713; J1450; J1580; J1815; J1953; J2020; J2560; J3370; J3475; J3480; J3490; J7030; J7040; J7042; J7050; J7060; J7070; P9016-BL; P9021

== ENCOUNTER 2017-04-13 20:54 | Inpatient (IN) | payer MEDICARE, MEDICAID ==
[~2017-04-13] VITALS: Ht 172.7 cm; Wt 104.3 kg
--- NOTE | 2017-04-13 01:51 | NUR ---
1800 Endorsed by the morning nurse. Patient lying in bed eyes are closed with some facial grimacing with ventilator setting AC 16 VT 450 FiO2 35% PEEP of 5 and connected with NGT with intermittent suctioning with VS 87/42-79- 99.6-20 O2 sat 99%. Patient on palliative care.Noted no more G-Tube. G-Tube stoma site noted with pink color with no signs of bleeding and dark discoloration in the periwound area #1 above wound 0.5x 0.5cm #2 lower wound 0.5x 1cm covered with dry dressing.Negative for tunneling and undermining.#3 R knee abrasion with pink appearance with no noted signs of bleeding.#4 L leg payne with purplish discoloration.Noted Left leg swollen. made aware.Instructed SENIOR PROJECT LEADER/TEAM LEAD to handle patient slowly and carefully when moving Addendum: 04/22/17 at 0251 by LISA LEDESMA LVN Corrected date and time 04/13/171999
[2017-04-13 18:00] VITALS: BP 87/42
--- NOTE | 2017-04-13 18:00 | NUR ---
1800 Endorsed by the morning nurse. Patient lying in bed eyes are closed with some facial grimacing with ventilator setting AC 16 VT 450 FiO2 35% PEEP of 5 and connected with NGT with intermittent suctioning with VS 87/42-79- 99.6-20 O2 sat 99%. Patient on palliative care.Noted no more G-Tube. G-Tube stoma site noted with pink color with no signs of bleeding and dark discoloration in the periwound area #1 above wound 0.5x 0.5cm #2 lower wound 0.5x 1cm covered with dry dressing.Negative for tunneling and undermining.#3 R knee abrasion with pink appearance with no noted signs of bleeding.#4 L leg payne with purplish discoloration.Noted Left leg swollen.MD made aware.Instructed BRAND AMBASSADOR to handle patient slowly and carefully when moving. Noted picc line in the right upper arm.Negative for bleeding and infiltration.Will continue to monitor Addendum: 04/15/17 at 0715 by LISA LEDESMA LVN duplicate
--- NOTE | 2017-04-13 18:00 | NUR ---
1800 Received patient lying in bed eyes are closed with some facial grimacing with ventilator setting AC 16 VT 450 FiO2 35% PEEP of 5 and connected with NGT with intermittent suctioning with VS 87/42-79- 18-99.6-20 O2 sat 99%. Patient on palliative care.Noted no more G-Tube. G-Tube stoma site noted with pink color with no signs of bleeding and dark discoloration in the periwound area #1 above wound 0.5x 0.5cm #2 lower wound 0.5x 1cm covered with dry dressing.Negative for tunneling and undermining.#3 R knee abrasion with pink appearance with no noted signs of bleeding.#4 L leg payne with purplish discoloration.Noted Left leg swollen.MD aware.Instructed DERMATOLOGICAL SURGEON to handle patient slowly and carefully when moving .Kept clean and dry for comfort.VS taken and recorded every 4 hours.at 4am Roxanol 0.05ml given for pain.Assessed patient after and hour noted patient relaxed, eyes are open with a little sign of discomfort.Will continue to monitor. Addendum: 04/15/17 at 0635 by LISA LEDESMA LVN noted picc line at R upper arm. No noted any swelling and infiltration in the site.Will continue to monitor.
--- NOTE | 2017-04-13 20:35 | NUR ---
Readmitted Patient from CCU back to sub acute on palliative care, all medication discontinued. Have an NG-tube connected to intermittent suctioning. No more G-tube, G-tube stoma with dressing intact. On a ventilator with setting: AC 16, VT 450, FiO2 35%, and a PEEP of 5. right knee noted with abrasion 2cm and leg tibia purplish discoloration with painful reaction when touched, Vitals on arrival at 1800 BP 87/42, pulse 79, SPO2 91%, Temp 99.6, Resp. 20, pain 4/10. Paged Dr. Gilbert, his no call, Dr. Mcdermott, ordered to continue with Roxanol 1mg PO Q 4HR PRN for pain. Vitals at 1930 are BP 103/49, pulse 71, SPO2 91%, Temp 99.4, Resp. 20, pain 5/10. Endorsed to next shift. Addendum: 04/14/17 at 2041 by JAKE SHAH RN Readmitted Patient from CCU back to sub acute on palliative care, all medication discontinued. Have an NG-tube connected to intermittent suctioning. No more G-tube, G-tube stoma with dressing intact. On a ventilator with setting: AC 16, VT 450, FiO2 35%, and a PEEP of 5. right knee noted with abrasion 2cm and left leg tibia purplish discoloration with painful reaction when touched, Vitals on arrival at 1800 BP 87/42, pulse 79, SPO2 91%, Temp 99.6, Resp. 20, pain 4/10. Paged Dr. Gilbert, his no call, Dr. Mcdermott, ordered to continue with Roxanol 1mg PO Q 4HR PRN for pain. Vitals at 1930 are BP 103/49, pulse 71, SPO2 91%, Temp 99.4, Resp. 20, pain 5/10. Endorsed to next shift.
[~2017-04-13 20:54] MED LIST changes: +BLOO-360 IN; -COD500OI3 GT; -DEXT1DRO3 OP; +DEXT50VI3 IV; +FAMO-132 GT; -FOLI1TAB16 GT; +FURO40SO5 GT; -GUAR1PAC4 GT; +HYDR-3974 GT; -HYDROCODONE 5/325 GT; +INSU100V10 SQ; +INSU100V28; -INSU100V28 SQ; -IVER3TAB2 GT; -Insulin Glargine,Hum.rec.anlog SQ; -LOPE2CAP40 GT; -MENT71OI TP; -MULT1TAB11 GT; +MUPI22OI2; +NEOM15OI3 TP; +OMEG1600 GT; +PETR113O TP; +POTA-88 GT; -PROSTAT GT; -RANI150T8 GT; -SIMILASAN EACHEYE; -Vancomycin Hcl PO; +ZINC57OI3 TP; -[UNRECOGNIZED DRUG - CODE] IV
[2017-04-13 22:00] VITALS: BP 89/50
[2017-04-14 02:00] VITALS: BP 89/70
[2017-04-14] MEDS: MORPHINE SULFATE 20 MG/1 ML ORAL LIQ. PO PRN ×2 (04:00→09:28)
[2017-04-14 06:00] VITALS: BP 98/87
--- NOTE | 2017-04-14 07:49 | NUR ---
Pt received laying in bed, semi-Huff's, awake - eyes open, obtunded - unable to communicate.. Pt trach: Surekhaley [address] / secure with tie, no visible sign of skin irritation / breakdown noted under / around trach tie.. Trach site clean / dry, stoma appears normal, no discoloration noted.. Continuous mechanical ventilation, vent: HT-50 w/settings: A/C 16, Vt 450, PEEP +5, FiO2 35%, tolerating well, no changes made to vent settings at this time.. Vent alarms checked, alarms on / audible and functioning properly at this time.. BVM / back up trach at bedside.. No s/s of respiratory distress / S.O.B noted.. Will continue to monitor..
[2017-04-14 08:00] VITALS: BP 135/98
[2017-04-14] MEDS ORDERED: MORPHINE SULFATE 20 MG/1 ML ORAL LIQ. PO PRN (10:30)
[2017-04-14] MEDS ORDERED: ACETAMINOPHEN 650 MG SUPP.RECT RC PRN (10:30)
[2017-04-14] MEDS ORDERED: SCOPOLAMINE HYDROBROMIDE 1.5 MG PATCH TD PRN (10:30)
[2017-04-14] MEDS ORDERED: ATROPINE SULFATE 1% OPHT DROP 2 ML SL PRN (10:30)
[2017-04-14] MEDS ORDERED: ONDANSETRON 4 MG/2 ML VIAL IV PRN (10:30)
[2017-04-14 12:00] VITALS: BP 128/87
[2017-04-14] MEDS: MORPHINE 20MG/ML GT PRN (17:17)
[2017-04-14 18:00] VITALS: BP 139/100
--- NOTE | 2017-04-14 19:30 | NUR ---
Patient continues on palliative care, all medication discontinued. NG-tube connected to intermittent suctioning with about 100ml output. G-tube stoma with dressing intact. Continue on a ventilator with setting: AC 16, VT 450, FiO2 35%, and a PEEP of 5. Paged Dr. Salcedo regarding left leg tibia purplish discoloration with painful reaction when touched emphasizing on a possible FX, new orders for comfort and anti-agitation since the patient is no palliative care. Noted and carried out. Kept cleaned and comfortable.
--- NOTE | 2017-04-14 19:45 | NUR ---
Notified Responsible democrat, Mr Paolo Zhou regarding patient Possible left tibia FX and the TX ordered.
--- NOTE | 2017-04-14 20:35 | NUR ---
RECEIVED ON CONTINUOUS VENT AC 16 VT 450 PEEP 5 FIO2 35% . TRACH IN PLACE AND SECURED. CHANGED PASCUAL. BACK UP TRACH AND AMBU BAG AT BEDSIDE. SUCTION PRN. VENT CHECKED, ALARMS WORKING WELL AND AUDIBLE. NO SIGNS OF RESPIRATORY DISTRESS NOTED AT THIS TIME. WILL CONTINUE TO MONITOR.
[2017-04-14 21:32] VITALS: BP 89/50
[2017-04-15] VITALS: BP 88/51
[2017-04-15 04:00] VITALS: BP 82/48
--- NOTE | 2017-04-15 05:00 | NUR ---
1999- .6,73,16,89/50,O2SAT 97%, RIGHT UPPER ARM PICC LINE PATENT, NO RESPIRATORY DISTRESS NOTED, 0500- 96/42,52,16, O2SAT 100%,REPOSITIONED, CONDITION GUARDED,MORPHINE 2MG GIVEN FOR COMFORT.
[2017-04-15] MEDS: MORPHINE 20MG/ML GT PRN ×4 (05:30→23:00)
[2017-04-15] MEDS ORDERED: HEPARIN SODIUM,PORCINE/PF 100 UNIT/ML, 5ML SYR IV PRN (07:15)
[2017-04-15] MEDS ORDERED: NORMAL SALINE FLUSH 10 ML DISP.SYRIN IV PRN (07:15)
[2017-04-15 08:00] VITALS: BP 71/35
[2017-04-15] MEDS: NORMAL SALINE FLUSH 10 ML DISP.SYRIN IV SCH ×2 (09:00→21:00)
--- NOTE | 2017-04-15 09:00 | NUR ---
pt kept comfortable. remain on palliative care. without signs and symptom of pain or discomfort noted.
--- NOTE | 2017-04-15 11:00 | NUR ---
left leg remain swollen. gentle handling when giving care.
--- NOTE | 2017-04-15 12:42 | NUR ---
Seen and examined by Dr. Mcdermott, regional refrigerated cdl truck driver for Dr Gilbert. notified of the possible FX of left lower, with no new orders.
--- NOTE | 2017-04-15 14:41 | NUR ---
brotherat bedside. morphine 1ml given for comfort.
--- NOTE | 2017-04-15 18:45 | NUR ---
Patient continues on palliative care, Roxanol 2mg given as ordered for comfort. vitals BP 72/43, pulse 45, temp 97.6 and Resp. 16 with SPO2 98%.
--- NOTE | 2017-04-15 20:24 | NUR ---
Pt received trached with Aleisha#6 DCT trach, which is in place and secure, on HT-50 vent with the following settings of AC-16, Vt-450, PEEP+5, FIO2-35%. No distress noted. Airway care done. HME changed. Resus. bag and back up trach at bedside. Vent and alarms on and audible.
--- NOTE | 2017-04-15 20:30 | NUR ---
Patient is resting in bed, no signs of any respiratory distress, connected to vent, on palliative care, on NGT for intermittent suction . Noted with dark gastric aspirate about 200 ml from the canister. Also, on morphine sulfate sublingually for comfort given as ordered. lee catheter noted with 50 ml residual, abdomen is still hard and distended, left knee extending below the knee, Handled very gently. with ativan order as needed for agitation or dyspnea, with Right ante cubital PICC line with 3 lumens, intact and no signs of complications, still with generalized (+) edema, elavated extremities on pillows, kept clean and comfortable.
[2017-04-15 22:37] VITALS: BP 120/89
[2017-04-16 01:10] VITALS: BP 86/48
[2017-04-16] MEDS: MORPHINE 20MG/ML GT PRN ×4 (02:08→17:13)
[2017-04-16 05:12] VITALS: BP 81/32
--- NOTE | 2017-04-16 06:35 | NUR ---
Patient is sleeping, no signs of respiratory distress noted, on palliative care, morphine given for comfort, turned and repositioned, kept clean and comfortable, needs attended, will continue monitor, B/P : 70/32 LA: 42, RR:16 T: 94.3 02sat: 94%, PAIN 0/10, will monitor closely.
[2017-04-16 07:08] VITALS: BP 77/30
[2017-04-16 08:00] VITALS: BP 74/33
[2017-04-16] MEDS: NORMAL SALINE FLUSH 10 ML DISP.SYRIN IV SCH ×2 (09:00→21:00)
--- NOTE | 2017-04-16 09:00 | NUR ---
pt's father called re pt's condition. pt appears to be comfortable. without resp/acute distress. b/p 73/43. pulse-63, o2sat 100%. informed father doesn't appear to have any pain or discomfort
--- NOTE | 2017-04-16 12:27 | NUR ---
Pt. seen by Yue Mcgarry and aware of left knee swelling with no new orders. Continue comfort care.
--- NOTE | 2017-04-16 14:38 | NUR ---
pt kept comfortable. morphine 2mg given sublingual. for comfort.
--- NOTE | 2017-04-16 16:09 | NUR ---
Psychosocial assessment completed today. ESTEFANÍA spoke with patient's brother Phong [phone] and discuss pastoral services. Phong was receptive and stated that he would contact the floor representative of the [employer] the family attends. Phong also stated that ESTEFANÍA could contact the school librarian that usually visits the hospital. ESTEFANÍA contacted Father Cm from [facility] [phone], and left him a voicemail asking him to call this SW back.
--- NOTE | 2017-04-16 16:30 | NUR ---
Patient readmitted from ICU after prolonged admission for Sepsis and GT site abscess,on palliative care; per MD notes, no more GT feeding due to palliative care and recent GT site abscess on NGT suction Dietitian is available upon request. Addendum: 04/16/17 at [address] Amended: Links added.
--- NOTE | 2017-04-16 17:19 | NUR ---
SW has not heard back from Father Cm yet (see previous SS note). SW called [facility] at [phone] and left a message asking for a call back in order to arrange a visit from the bladder trimmer. is project manager Lianne and TRAVELING NURSE Nilesh informed.
--- NOTE | 2017-04-16 19:33 | NUR ---
Trached resident was received on HT-50 vent with the following settings of AC-16, Vt-450, PEEP+5, FIO2-35%. No distress noted. She is trached with a Shiley 6 DCT, INSURANCE ADVISOR used for cuff assessment. HME changed. Sucitoned small amounts of pale white thick secretions without complications noted. Back up trach at bedside. Vent and alarms on and audible. Will continue to monitor.
[2017-04-16 20:52] VITALS: BP 71/34
--- NOTE | 2017-04-17 00:43 | NUR ---
PT IS SLEEPING, NO SOB DISTRESS NOTED.ON PALLIATIVE CARE MORPHINE GIVEN FOR COMFORT (L) KNEE SWELLING MONITOR FOR PAIN TURN POSITIONED KEEP CLEAN AND COMFORTABLE.CONTINUE COMFORT CARE BP 84/36 P56 [id number] NOTED.
--- NOTE | 2017-04-17 07:28 | NUR ---
Pt received laying in bed, semi-Huff's, awake - eyes open, obtunded - unable to communicate.. Pt trach: Shiley [address] / secure with tie, no visible sign of skin irritation / breakdown noted under / around trach tie.. Trach site clean / dry, stoma appears normal, no discoloration noted.. Continuous mechanical ventilation, vent: HT-50 w/settings: A/C 16, Vt 450, PEEP +5, FiO2 35%, tolerating well, no changes made to vent settings at this time.. Vent alarms checked, alarms on / audible and functioning properly at this time.. BVM / back up trach at bedside.. No s/s of respiratory distress / S.O.B noted.. Will continue to monitor.. Pt BP low, nurse aware, pt is on palliative care..
[2017-04-17] MEDS: MORPHINE 20MG/ML GT PRN ×2 (08:25→18:07)
[2017-04-17] MEDS: NORMAL SALINE FLUSH 10 ML DISP.SYRIN IV SCH ×2 (09:00→21:00)
--- NOTE | 2017-04-17 13:13 | NUR ---
Pharmacy Update from today's 04/17/17 IDT Meeting Note: Patient was transferred to CCU for sepsis and GT site abscess 03/31-04/13. Patient transferred back to 04/13 and currently on palliative care measures. -VS: TEMP 94.3 HR 52 BP 71/34 -LABS: (From 03/10) WBC 5.8 H/H 8.5/28.1 PLT 176 NA 152 K 3.8 CL 114 CO2 35 BUN/SCR 31/1.1 BS 77 -MEDICATION USE REVIEWED: > All recent medications have been discontinued at this time. Patient currently on palliative care measures > PRN MED USAGE: previous PRN meds have been discontinued at thsi time. Pt on palliative care measures. -NEW ORDERS NOTED: > Upon transfer back to , pt has been placed on palliative care measures including atropine and scopolamine for resp secretions, ativan for agitation, zofran for N/V, and morphine oral solution q1hr as needed for pain/agitation. All previous treatment measures, tube feedings have been discontinued however pt will remain on vent to allow to natural passing per pt's family request.
--- NOTE | 2017-04-17 13:14 | NUR ---
Renae from [facility] called back this morning, in response to the voicemail message this SW had left yesterday evening. Renae stated that a rail bender would come to the hospital today to visit patient.
--- NOTE | 2017-04-17 13:15 | NUR ---
Father Edwar came to visit patient in her room. This and Subacute Director Josette lopez.
--- NOTE | 2017-04-17 14:37 | NUR ---
INTERDISCIPLINARY PLAN OF CARE CONFERENCE was held today. Patient's family was invited to the meeting, but they were unable to attend. Dr. Gilbert and the Interdisciplinary Team reviewed the current plan of care in detail. Patient admitted to subacute on 04/13/17 after requiring acute hospitalization. RN provided updates on patient's medical condition; reported that patient is on comfort care at this time. See RN IDT conference notes. See also all other disciplines IDT notes and physician's progress notes for additional details.
--- NOTE | 2017-04-17 20:56 | NUR ---
Pt received trached with Aleisha#6 DCT trach, which is in place and secure, on HT-50 vent with the following settings of AC-16, Vt-450, PEEP+5, FIO2-35%. No respiratory distress noted. Airway care done. HME changed. Resus. bag and back up trach at bedside. Vent and alarms on and audible.
[2017-04-17 21:42] VITALS: BP 75/35
[2017-04-18] MEDS: MORPHINE 20MG/ML GT PRN ×4 (00:30→17:34)
--- NOTE | 2017-04-18 06:05 | NUR ---
PT KEPT COMFORTABLE.MORPHINE 2MG GIVEN VIA SUBLINGUAL FOR PAIN.
[2017-04-18] MEDS: NORMAL SALINE FLUSH 10 ML DISP.SYRIN IV SCH ×2 (09:00→21:03)
--- NOTE | 2017-04-18 18:00 | NUR ---
(LATE ENTRY)FOR 04/17/17 AT 18:00.PT. REMAINS COMFORTABLE AND MEDICATED ORDERED.
--- NOTE | 2017-04-18 18:00 | NUR ---
PT. REMAINS COMFORTABLE AND MEDICATED ORDERED.
--- NOTE | 2017-04-18 18:55 | NUR ---
(LATE ENTRY) SEEN BY DR. HICKMAN ON 04/17/17 AT 18:50 AND SPOKE TO PT'S BROTHER AND NNO.
--- NOTE | 2017-04-18 20:59 | NUR ---
pt received on a mechanical vent with the following settings that are charted on the mechanical vent notes. suctioned small amounts of thin secretions. oral suctioned performed. no complications during and after suctioning. trach is patent and properly secured with trach ties. vent alarms are on and audible. prn hme changed. ambu bag and back up trach is on the side of the bed. vent is plugged in red outlet. no sob noted at this time. pt is tolerating current vent settings well. will continue to monitor.
[2017-04-18 21:15] VITALS: BP 68/31
[2017-04-19] MEDS: MORPHINE 20MG/ML GT PRN ×4 (01:00→17:38)
--- NOTE | 2017-04-19 05:57 | NUR ---
PT IN BED ON VENT WITH TRACH NO SOB DISTRESS. MORPHINE 2 MG GIVEN VIA SUBLINGUAL FOR PAIN.KEEP CLEAN AND COMFORT CARE BP73/36 MMHG P50/MIN NOTED.
[2017-04-19] MEDS: NORMAL SALINE FLUSH 10 ML DISP.SYRIN IV SCH ×2 (09:24→21:50)
[2017-04-19 10:47] VITALS: BP 83/43
--- NOTE | 2017-04-19 20:30 | NUR ---
On palliative care, afebrile, no signs of any distress, on roxanol for pain management, connected to vent as ordered, NGT is connect to low intermittent suction, noted with greenish output approximately 150 ml, still with generalized edema + 4, abdomen is distended, lee catheter is noted with minimal output and tea colored, left leg noted with discoloration, handled very gently, kept clean and comfortable.
--- NOTE | 2017-04-19 20:33 | NUR ---
Pt received on HT-50 vent with the following settings of AC-16, Vt-450, PEEP+5, FIO2-35%, trached with Shiley#6 DCT trach, which is in place and secure. No respiratory distress noted. Airway care done. HME changed. Resus. bag and back up trach at bedside. Vent and alarms on and audible.
[2017-04-19 21:51] VITALS: BP 80/47
[2017-04-19 23:00] VITALS: BP 80/46
[2017-04-20 01:00] VITALS: BP 89/54
[2017-04-20] MEDS: MORPHINE 20MG/ML GT PRN ×6 (03:20→22:00)
[2017-04-20 04:11] VITALS: BP 85/48
[2017-04-20 08:00] VITALS: BP 120/98
--- NOTE | 2017-04-20 08:30 | NUR ---
PT RECEIVED ON HT-50 VENTILATOR. CURRENT SETTINGS ARE AC 16, VT 450, PEEP +5, FIO2 35%. NO CHANGES MADE. ALARMS CHECKED, ARE ON AND AUDIBLE. NO S/S OF RESPIRATORY DISTRESS OBSERVED AT THIS TIME. SH. #6DCT TRACH IS PATENT AND SECURED WITH TRACH TIES. SUCTIONED SMALL AMOUNT OF YELLOWISH SECRETIONS. HME CHANGED. AMBU BAG AND BACK UP TRACH AT BEDSIDE. WILL CONTINUE TO MONITOR.
[2017-04-20] MEDS: NORMAL SALINE FLUSH 10 ML DISP.SYRIN IV SCH ×2 (09:00→21:00)
[2017-04-20 20:06] VITALS: BP 78/46
--- NOTE | 2017-04-20 20:58 | NUR ---
Pt received on HT-50 vent with the following settings of AC-16, Vt-450, PEEP+5, FIO2-35%, trached with Shiley#6 DCT trach, which is in place and secure. No sob noted. Airway care done. Resus. bag and back up trach at bedside. Vent and alarms checked and reset.
[2017-04-21] MEDS: MORPHINE 20MG/ML GT PRN ×4 (03:00→22:32)
--- NOTE | 2017-04-21 05:00 | NUR ---
on palliative care,no respiratory distress, on roxanol for pain management, on vent,n/g tube connected to low intermittent suction with dark brown drainage, lee cath with small amount of urine,kept pt clean and dry,condition guarded.
[2017-04-21 08:03] VITALS: BP 44/29
[2017-04-21] MEDS: NORMAL SALINE FLUSH 10 ML DISP.SYRIN IV SCH ×2 (09:00→21:52)
[2017-04-21 14:00] VITALS: BP 78/57
--- NOTE | 2017-04-21 15:28 | NUR ---
PATIENT RECEIVED ON HT-50 VENT W/ THE FOLLOWING SETTINGS THAT ARE CHARTED ON THE MECHANICAL VENT NOTES. SUCTIONED A SMALL AMOUNT OF YELLOW THIN SECRETIONS. CHANGED HME. VENT ALARMS CHECKED AND THEY ARE ON AND AUDIBLE. VENT IS PLUGGED IN THE RED EMERGENCY OUTLET. BMV AND BACK UP TRACH AT BEDSIDE. NO SOB NOTED AT THIS TIME.
--- NOTE | 2017-04-21 18:54 | NUR ---
PATIENT IN BED REMAINS COMFORTABLE , ATIVAN AND PAIN MEDICATION GIVEN ORDERED. 300 MLS OUT PUT OF GASTRIC FLUIDS, COFFEE GROUND COLOR.
[2017-04-21 22:26] VITALS: BP 65/30
[2017-04-22] MEDS: MORPHINE 20MG/ML GT PRN ×7 (02:26→23:55)
--- NOTE | 2017-04-22 05:00 | NUR ---
continue on palliative care, no respiratory distress noted, roxanol for pain management, n/g tube patent with dark brown color drainage, repositioned, pt checked frequently.
--- NOTE | 2017-04-22 05:24 | NUR ---
PT ON CONT HT 50 VENT WITH SHILEY TRAC IN PLACE AND SECURED, WITH SAME CURRENT VENT SETTINGS, PT DOES ASSIST AT TIMES, SLIGHT IMPROVEMENT IN VENTILATION, TANIA FLUID, SUCTIONED LIGHT PALE YELL TINGE SECRETIONS WITH GOOD COUGH EFFORT, CHANGE HME AND PASCUAL, ALL ALARMS OK, AMBU BAG AT BEDSIDE, NO VENT CHANGES MADE AT THIS TIME, SUCTION MOUTH WITH KARINA HALEY D GOLDEN RCP Addendum: 04/22/17 at 0599 by ETHEL FERGUSON RT Amended: Links added.
[2017-04-22] MEDS: LORAZEPAM 1 MG TABLET SL PRN ×2 (07:58→14:05)
[2017-04-22] MEDS: NORMAL SALINE FLUSH 10 ML DISP.SYRIN IV SCH ×2 (09:00→21:23)
[2017-04-22 11:10] VITALS: BP 120/79
--- NOTE | 2017-04-22 17:48 | NUR ---
PT. REMAINS COMFORTABLE AT ALL TIMES AND MEDICATED ORDERED.
--- NOTE | 2017-04-22 18:07 | NUR ---
RESIDENT LOOKS COMFORTABLE IN BED SUCTIONED FOR MODERATE AMOUNT OF SECRETIONS ORALLY AND FROM THE TRACH. CHANGED VENTILATOR CIRCUIT WITHOUT INCIDENT.
--- NOTE | 2017-04-22 20:59 | NUR ---
PT ON CONT HT 50 VENT WITH SHILEY # [address] AND SECURED, PT DOES ASSIST AT TIMES, BUT VERY WEAK, SUCTIONED LIGHT PALE YELL TINGE SECRETIONS, AND SUCTION MOUTH WITH YANKAUER, LOW BP, NO VENT CHANGES MADE AT THIS TIME, ALL ALARMS OK, AMBU BAG AT BEDSIDE, CHANGE HME AND CHECK CUFF, B/S SLIGHTLY DECREASED WITH SLIGHT RHONCHI. Andi CHAKRABORTYP Addendum: 04/22/17 at 2108 by ETHEL FERGUSON RT Amended: Links added.
[2017-04-22 22:24] VITALS: BP 69/35
[2017-04-23] MEDS: MORPHINE 20MG/ML GT PRN ×4 (04:45→20:38)
[2017-04-23 05:00] VITALS: BP 66/35
--- NOTE | 2017-04-23 05:00 | NUR ---
ON PALLIATIVE CARE, NO RESPIRATORY DISTRESS,MEDICATED FOR COMFORT.
--- NOTE | 2017-04-23 08:21 | NUR ---
PT CONT ON FULL VENT SUPPORT. PT VENT'D VIA TRACH TUBE SH6DCT, VENT SETTINGS AC16 450 VT PEEP+5 35%. BS DIM SYEDA. LAVAGE/SXN'ING PRN. PT ON COMFORT CARE MEASURES. BVM BACKUP TRACH AT BEDSIDE. VENT ALARMS AUDIBLE CHECKED AND RESET.
[2017-04-23] MEDS: NORMAL SALINE FLUSH 10 ML DISP.SYRIN IV SCH ×2 (09:25→21:00)
[2017-04-23 11:57] VITALS: BP 67/33
--- NOTE | 2017-04-23 14:52 | NUR ---
SEEN BY HARSH Mcgarry ,REMAINS COMFORTABLE.
--- NOTE | 2017-04-23 20:10 | NUR ---
Pt received on continuous mechanical ventilation via Trach, is in semi diaz position, and is unable to respond verbal stimuli. Trach is Shiley 6 DCT, and is patent and secure. No redness or irritation noted around stoma or trach tie. Pt is on HT-50 vent with ordered settings of A/C 16, VT-450, PEEP +5, FIO2-35% . Minimal leak technique used to assess cuff inflation. Pt tolerating vent settings well. No signs or symptoms of respiratory distress noted. Sxn'd small amts of white/yellow secretions. Vent alarm parameters checked, on and audible. Ventilator plugged into red emergency outlet. Bag/valve/mask and back up trach at bedside. HME changed. PPE used.
[2017-04-23 20:25] VITALS: BP 66/33
[2017-04-24] MEDS: MORPHINE 20MG/ML GT PRN ×6 (05:12→21:24)
[2017-04-24 08:00] VITALS: BP 81/35
[2017-04-24] MEDS: NORMAL SALINE FLUSH 10 ML DISP.SYRIN IV SCH ×2 (09:00→21:00)
--- NOTE | 2017-04-24 13:16 | NUR ---
Seen and examined by Dr. Gilbert with no new orders.
[2017-04-24 20:00] VITALS: BP 74/34
[2017-04-25] MEDS: MORPHINE 20MG/ML GT PRN ×6 (02:11→21:37)
--- NOTE | 2017-04-25 05:44 | NUR ---
on palliative care, continue on comfort measures, no respiratory distress.
[2017-04-25 08:02] VITALS: BP 70/60
[2017-04-25] MEDS: NORMAL SALINE FLUSH 10 ML DISP.SYRIN IV SCH ×2 (09:43→21:27)
--- NOTE | 2017-04-25 15:28 | NUR ---
on palliative care, continue on comfort measures, no respiratory distress.
[2017-04-25 22:54] VITALS: BP 56/22
--- NOTE | 2017-04-26 01:08 | NUR ---
PT ON CONT HT 50 VENT WITH SHILEY #[address] AND SECURED, WITH SAME CURRENT VENT SETTINGS, WITH WEAK COUGH EFFORT, LO W BP, SUCTIONED LIGHT PALE YELL TINGE SECRETIONS, NO VENT CHANGES MADE AT THIS TIME, CHANGE HME , CHECK CUFF, ALL ALARMS OK, AMBU BAG AT BEDSIDE.Andi FERGUSON CASH APPLICATIONS MANAGER Addendum: 04/26/17 at 0110 by ETHEL FERGUSON RT Amended: Links added.
[2017-04-26] MEDS: MORPHINE 20MG/ML GT PRN ×11 (01:57→22:27)
--- NOTE | 2017-04-26 05:06 | NUR ---
pt on palliative care, made pt comfortable, no respiratory distress.
[2017-04-26 08:00] VITALS: BP 91/46
--- NOTE | 2017-04-26 08:00 | NUR ---
DR. IBETH BAUGH AWARE OF PT. IS ON PALLIATIVE CARE.
--- NOTE | 2017-04-26 08:25 | NUR ---
PT REMAINS ON HT-50 VENT, SETTINGS ARE AC 16, Vt 450, +5, 35% FIO2. TRACH IS PATENT AND SECURED WITH TIES. TOLERATING VENT SETTINGS WELL. HAS MINIMAL AMOUNTS OF PALE YELLOW SECRETIONS. BVM AND BACK UP TRACH AT BEDSIDE. ALARMS ARE ON AND AUDIBLE. WILL CONTINUE TO MONITOR.
[2017-04-26] MEDS: NORMAL SALINE FLUSH 10 ML DISP.SYRIN IV SCH ×2 (09:00→21:58)
[2017-04-26] MEDS: LORAZEPAM 1 MG TABLET SL PRN (12:44)
--- NOTE | 2017-04-26 13:17 | NUR ---
SEEN BY HARSH FULLER.
--- NOTE | 2017-04-26 18:59 | NUR ---
PT. REMAINS COMFORTABLE AND MEDICATED ORDERD.
--- NOTE | 2017-04-26 20:59 | NUR ---
PT ON CONT HT 50 VENT WITH SHILEY # [address] AND SECURED, WITH SAME CURRENT VENT SETTINGS, PT WITH MOSTLY CONTROLLED VENTILATION. FAIR COUGH EFFORT, SUCTIONED VERY LIGHT PALE YELL TINGE SECRETIONS, AND SUCTION MOUTH WITH KARINA HALEY, CHANGE HME AND CHECK CUFF, ALL ALARMS OK, AMBU BAG AT BEDSIDE, NO VENT CHANGES MADE AT THIS TIME, NO SIGNS OF SOB AT THIS TIME ,SAT 98%. RYANNE SMALL Addendum: 04/26/17 at 2101 by ETHEL HORVATH Amended: Links added.
[2017-04-26 22:41] VITALS: BP 157/89
[2017-04-27] MEDS: MORPHINE 20MG/ML GT PRN ×8 (03:45→23:00)
[2017-04-27 08:00] VITALS: BP 81/32
[2017-04-27] MEDS: NORMAL SALINE FLUSH 10 ML DISP.SYRIN IV SCH ×2 (09:00→21:21)
--- NOTE | 2017-04-27 17:19 | NUR ---
PT. REMAINS COMFORTABLE AND MEDICATED ORDERED.
--- NOTE | 2017-04-27 20:31 | NUR ---
Received pt on HT-50 vent with the following settings of AC-16, Vt-450, PEEP+5, FIO2-35%, trached with Shiley#6 DCT trach, which is in place and secure. No respiratory distress noted. Airway care done, pt responded to physical stimuli. Pulse ox in the room. Resus. bag and back up trach at bedside. Vent and alarms checked and reset.
--- NOTE | 2017-04-27 21:59 | NUR ---
Received pt on HT-50 vent with the following settings of AC-16, Vt-450, PEEP+5, FIO2-35%, trached with Shiley#6 DCT trach, which is in place and secure. No respiratory distrtess noted. Airway care done. Resus. bag and back up trach at bedside. Vent and alarms checked and reset.
[2017-04-27 22:48] VITALS: BP 69/36
[2017-04-28] MEDS: MORPHINE 20MG/ML GT PRN ×5 (04:40→21:15)
--- NOTE | 2017-04-28 06:42 | NUR ---
Patient on palliative care, comfort measures , no respiratory distress noted during this shift . Continuo monitoring patient closely.
--- NOTE | 2017-04-28 08:21 | NUR ---
RECEIVED PT ON CONTINUOUS MECHANICAL VENTILATION WITH SETTINGS OF AC 16, VT 450, PEEP +5, FIO2 35%. NO CHANGES MADE AT THIS TIME. ALARMS CHECKED, ARE ON AND FUNCTIONING WELL. NO S/S OF RESPIRATORY DISTRESS NOTED. TRACH IS PATENT AND SECURED. MONTHLY TRACH CHANGE TO BE DONE TODAY. SUCTIONED SMALL AMOUNT OF YELLOWISH SECRETIONS. HME CHANGED. BVM AND BACK UP TRACH AT BEDSIDE. WILL CONTINUE TO MONITOR.
[2017-04-28] MEDS: NORMAL SALINE FLUSH 10 ML DISP.SYRIN IV SCH ×2 (08:58→21:00)
--- NOTE | 2017-04-28 19:01 | NUR ---
PT. REMAINS COMFORTABLE AND MEDICATED ORDERED.
--- NOTE | 2017-04-28 20:00 | NUR ---
Patient remains on palliative care, connected to vent , no respiratory distress noted, morphine given as ordered for comfort, on intermittent suction , noted with 100 ml, dark green drainage from NGT, abdomen is still distended, lee catheter noted with 50 ml west yellow urine output noted in the urinary bag. Turned and kept patient comfortable, will monitor closely.
[2017-04-28 22:10] VITALS: BP 52/23
[2017-04-29] MEDS: MORPHINE 20MG/ML GT PRN ×9 (02:41→23:10)
[2017-04-29 06:20] VITALS: BP 100/49
--- NOTE | 2017-04-29 06:22 | NUR ---
Patient is resting comfortably in bed, on comfort measures, morphine given for comfort, no respiratory distress noted, afebrile temp is 97.3, 02 sat @ 99% B/P : 100/49 RR:16 pain: 0/10 HR: 72 , skin looks wrinkled and very dry, abdomen is distended but soft to touch and no signs of any distress when touched, NGT is draining with dark green with total of 400 ml output via intermittent suction, lee catheter noted with minimal output with 25 ml west yellow in color, turned and repositioned, kept clean and comfortable.
[2017-04-29 08:00] VITALS: BP 67/32
[2017-04-29] MEDS: NORMAL SALINE FLUSH 10 ML DISP.SYRIN IV SCH ×2 (08:32→21:36)
--- NOTE | 2017-04-29 08:35 | NUR ---
RESIDENT RECEIVED ON HT50 VENT, TOLERATING CURRENT SETTINGS WELL, NO SOB NOTED, SUCTION PRN, ON SEMI BROOKE'S POSITION, TRACH TUBE CHECKED, SECURED AND PATENT. NO OTHER VENT CHANGES AT THIS TIME.
--- NOTE | 2017-04-29 20:05 | NUR ---
PT RECEIVED ON HT-50 VENTILATOR. CURRENT VENT SETTINGS ARE AC 16, VT 450, PEEP +5, FIO2 35%. NO CHANGES MADE AT THIS TIME. VENT CHECK DONE. ALARMS CHECKED, ARE ON AND AUDIBLE. TRACH IS PATENT AND SECURED WITH FOAM TRACH TIES. SUCTIONED SMALL AMOUNT OF THICK, YELLOWISH SECRETIONS. HME CHANGED. AMBU BAG AND BACK UP TRACH AT BEDSIDE. NO S/S OF RESPIRATORY DISTRESS NOTED AT THIS TIME. WILL CONTINUE TO MONITOR THROUGHOUT SHIFT.
[2017-04-29 22:06] VITALS: BP 66/30
[2017-04-30] MEDS: MORPHINE 20MG/ML GT PRN ×6 (03:31→20:25)
--- NOTE | 2017-04-30 06:06 | NUR ---
pt on palliative care, comfort measures given, no respiratory distress noted.
[2017-04-30 08:00] VITALS: BP 86/0
--- NOTE | 2017-04-30 11:43 | NUR ---
PT ON HT-50 VENT, SETTINGS ARE AC 16, Vt 450, +5, 35% FIO2. TRACH IS PATENT AND SECURED WITH TIES. NO SOB NOTED. HAS SMALL AMOUNTS OF PALE YELLOW SECRETIONS. BVM AND BACK UP TRACH AT BEDSIDE. ALARMS ARE ON AND AUDIBLE. WILL CONTINUE TO MONITOR.
[2017-04-30 20:38] VITALS: BP 63/36
[2017-04-30] MEDS: NORMAL SALINE FLUSH 10 ML DISP.SYRIN IV SCH (21:00)
[2017-05-01] MEDS: MORPHINE 20MG/ML GT PRN ×8 (01:28→23:00)
--- NOTE | 2017-05-01 06:17 | NUR ---
pt on palliative care, n/g tube patent with dark brown drainage, no respiratory distress.
[2017-05-01 08:00] VITALS: BP 59/29
[2017-05-01] MEDS: NORMAL SALINE FLUSH 10 ML DISP.SYRIN IV SCH ×2 (09:00→21:00)
--- NOTE | 2017-05-01 12:08 | NUR ---
Pharmacy Update from today's 05/01/17 IDT Meeting Note: Patient was transferred to CCU for sepsis and GT site abscess 03/31-04/13. Patient transferred back to 04/13 and currently on palliative care measures. -VS: TEMP 94.3 HR 52 BP 71/34 -LABS: (From 03/10) WBC 5.8 H/H 8.5/28.1 PLT 176 NA 152 K 3.8 CL 114 CO2 35 BUN/SCR 31/1.1 BS 77 -MEDICATION USE REVIEWED: > All recent medications have been discontinued at this time. Patient currently on palliative care measures > PRN MED USAGE: previous PRN meds have been discontinued at thsi time. Pt on palliative care measures. -CURRENT MEDS NOTED: > Upon transfer back to , pt has been placed on palliative care measures including atropine and scopolamine for resp secretions, ativan for agitation, zofran for N/V, and morphine oral solution q1hr as needed for pain/agitation. All previous treatment measures, tube feedings have been discontinued however pt will remain on vent to allow to natural passing per pt's family request. No changes or concerns at IDT meeting, continues on comfort care with family visiting pt. Will follow
--- NOTE | 2017-05-01 14:09 | NUR ---
PT. REMAINS COMFORTABLE AND MEDICATED ORDERED.
--- NOTE | 2017-05-01 14:09 | NUR ---
SEEN BY DENISE FULLER.
--- NOTE | 2017-05-01 16:11 | NUR ---
INTERDISCIPLINARY PLAN OF CARE CONFERENCE was held today. Patient's family was invited to the meeting, but they were unable to attend. Dr. Gilbert and the Interdisciplinary Team reviewed the current plan of care. RN provided updates on patient's current medical condition. See RN IDT conference notes. Patient continues to comfort care. See also all other disciplines IDT notes and physician's progress notes for additional details.
--- NOTE | 2017-05-01 17:25 | NUR ---
PT. REMAINS COMFORTABLE AND MEDICATED ORDERED.
--- NOTE | 2017-05-01 18:07 | NUR ---
REMAIN ON CURRENT VENT SETTINGS. RESIDENT IS ON COMFORT MEASURES ONLY. LAVAGED AND SUCTIONED FOR MODERATE AMOUNT OF THICK YELLOW SECRETIONS, NO CHANGES WITH RESPIRATORY ORDERS.
[2017-05-01 20:33] VITALS: BP 64/37
[2017-05-02] MEDS: MORPHINE 20MG/ML GT PRN ×11 (01:13→23:00)
[2017-05-02] MEDS: NORMAL SALINE FLUSH 10 ML DISP.SYRIN IV SCH ×2 (09:10→21:14)
[2017-05-02 12:39] VITALS: BP 52/26
--- NOTE | 2017-05-02 17:37 | NUR ---
CARE RESUMED POST AM REPORT. RESIDENT REMAIN ON COMFORT MEASURE ONLY. VENT CHECK AND VENT MANAGEMENT RESUMED. CHANGED HUMIDIFIER FILTER.
--- NOTE | 2017-05-02 18:12 | NUR ---
PT. REMAINS COMFORTABLE AT ALL TIMES AND MEDICATED ORDERED.
[2017-05-02] MEDS: LORAZEPAM 1 MG TABLET SL PRN (18:53)
--- NOTE | 2017-05-02 19:20 | NUR ---
Seen and examined by Dr. Gilbert with no orders.
[2017-05-02 20:00] VITALS: BP 62/34
--- NOTE | 2017-05-02 20:00 | NUR ---
Patient in bed, afebrile, no signs of any distress, family @ bedside, 02 sat @94%, remains on palliative care,morphine gives as ordered for comfort, NGT on low intermittent suction , noted with dark greenish aspirate approximately 100 ml, lee catheter draining well to west yellow urine, good smitha care rendered, kept clean and comfortable.
[2017-05-02 22:00] VITALS: BP 62/32
--- NOTE | 2017-05-02 23:10 | NUR ---
Seen notes from Dr. Shelbie Pereyra with no orders.
[2017-05-03] VITALS: BP 67/33
[2017-05-03] MEDS: MORPHINE 20MG/ML GT PRN ×19 (01:00→23:00)
[2017-05-03 02:30] VITALS: BP 58/26
--- NOTE | 2017-05-03 03:55 | NUR ---
RECEIVED PT ON A MECHANICAL VENT WITH THE SETTINGS THAT ARE CHARTED ON THE VENT NOTES. VENT ALARMS ARE ON AND AUDIBLE. HME CHANGED, PRN. SUCTIONED SMALL AMOUNTS OF YELLOW AND WHITE THIN SECRETIONS. VENT IS PLUGGED IN THE RED OUTLET. TRACH IS PROPERLY SECURED WITH TRACH TIES. AIR WAY IS PATENT. SPARE TRACH AND AMBU BAG IS BY BEDSIDE. NO SIGNS OR SYMPTOMS OF RESPIRATORY DISTRESS NOTED AT THIS TIME.
[2017-05-03 05:30] VITALS: BP 55/28
--- NOTE | 2017-05-03 06:17 | NUR ---
Patient sleeping, connected to vent, no respiratory distress noted, continues on Palliative care, morphine given as ordered, NGT on intermittent low suction, noted with total of 300 ml dark green aspirate. lee catheter noted with total of 100ml west yellow urine, ELIZABETH PICC intact and no signs of complications noted. skin looks dry,kept clean and comfortable.
[2017-05-03 08:00] VITALS: BP 50/26
[2017-05-03] MEDS: NORMAL SALINE FLUSH 10 ML DISP.SYRIN IV SCH ×2 (09:00→21:00)
--- NOTE | 2017-05-03 19:54 | NUR ---
RECEIVED PT ON CONTINOUS MECHANICAL VENTILATION WITH CURRENT SETTINGS OF AC 16, VT 450, PEEP +5, FIO2 35%. NO CHANGES MADE. VENT ALARMS CHECKED, ARE ON AND FUNCTIONING WELL. SH. #6DCT TRACH IS PATENT AND SECURED WITH FOAM TRACH TIES. SUCTIONED SMALL AMOUNT OF THICK, YELLOWISH SECRETIONS. HME CHANGED NEEDED. BVM AND BACK UP TRACH AT BEDSIDE. NO S/S OF RESPIRATORY DISTRESS NOTED. WILL CONTINUE TO MONITOR THROUGHOUT SHIFT.
[2017-05-03 20:22] VITALS: BP 63/25
--- NOTE | 2017-05-03 21:00 | NUR ---
Patient is on palliative care, morphine given as ordered, no signs of any distress noted, on continuous low intermittent suction and noted with dark greenish output, ELIZABETH PICC line intact and no signs of infection. Abdomen distended but soft to the touch, lee catheter draining to west yellow urine output, good smitha care rendered, kept clean and comfortable.
--- NOTE | 2017-05-03 22:30 | NUR ---
Added PICC line dressing change every week and as needed when soiled for maintenance.
[2017-05-03 23:00] VITALS: BP 57/28
[2017-05-04] MEDS: MORPHINE 20MG/ML GT PRN ×18 (01:00→22:50)
[2017-05-04 06:44] VITALS: BP 62/29
--- NOTE | 2017-05-04 06:57 | NUR ---
Afebrile, awake, no signs of any distress, turned and repositioned, kept clean and comfortable , remains on palliative care, will continue monitor.
[2017-05-04 08:00] VITALS: BP 64/33
[2017-05-04] MEDS: NORMAL SALINE FLUSH 10 ML DISP.SYRIN IV SCH ×3 (09:00→21:42)
[2017-05-04 20:40] VITALS: BP 76/58
--- NOTE | 2017-05-04 20:40 | NUR ---
Received pt on HT-50 vent with the following settings of AC-16, Vt-450, PEEP+5, FIO2-35%, trached with Shiley#6 DCT trach, which is in place and secure. No sob noted. Airway care done, pt responded to physical stimuli. HME changed. Resus. bag and back up trach at bedside. Vent and alarms on and audible.
[2017-05-05] VITALS: BP 75/38
[2017-05-05] MEDS: MORPHINE 20MG/ML GT PRN ×15 (01:11→21:57)
--- NOTE | 2017-05-05 02:46 | NUR ---
Still on palliative care , morphine given as ordered, on low intermittent suction with dark green output , ELIZABETH PICC line intact and no signs of complications noted, kept comfortable as possible.
--- NOTE | 2017-05-05 05:58 | NUR ---
Patient sleeping, no signs of any distress noted, connected to vent . Morphine given for comfort, remains on palliative care, kept patient comfortable as possible, turned and repositioned, will continue monitoring.
[2017-05-05 06:01] VITALS: BP 59/28
--- NOTE | 2017-05-05 08:15 | NUR ---
Pt received on continuous mechanical ventilation via Trach, is in semi diaz position, and is unresponsive to verbal stimuli. Trach is Shiley 6 DCT, and is patent and secure. No redness or irritation noted around stoma or trach tie. Pt is on HT-50 vent with ordered settings of A/C 16, VT-450, PEEP +5, FIO2-35% . Minimal leak technique used to assess cuff inflation. Pt tolerating vent settings well. No signs or symptoms of respiratory distress noted. Sxn'd small amts of white/yellow secretions. Vent alarm parameters checked, on and audible. Ventilator plugged into red emergency outlet. Bag/valve/mask and back up trach at bedside. HME changed. PPE used. Will continue to monitor.
[2017-05-05] MEDS: NORMAL SALINE FLUSH 10 ML DISP.SYRIN IV SCH ×2 (08:19→21:00)
[2017-05-05] MEDS: LORAZEPAM 1 MG TABLET SL PRN ×3 (08:33→18:29)
[2017-05-05 11:22] VITALS: BP 98/76
[2017-05-05 21:43] VITALS: BP 70/45
--- NOTE | 2017-05-06 01:29 | NUR ---
PT ON CONT HT 50 VENT WITH SHILEY # [address] AND SECURED, PT DOES ASSIST AT TIMES, WITH GOOD COUGH EFFORT, SUCTIONED VERY LIGHT PALE YELL TINGE SECRETIONS, CHECK CUFF, NO VENT CHANGES MADE AT THIS TIME, CHANGE MÓNICA AND BALLARD. Andi FERGUSON RCP Addendum: 05/06/17 at 0130 by ETHEL FERGUSON RT Amended: Links added.
[2017-05-06] MEDS: MORPHINE 20MG/ML GT PRN ×12 (02:17→21:59)
--- NOTE | 2017-05-06 06:00 | NUR ---
on palliative care,morphine given for comfort, n/g tube connected to low intermittent suction, dark brown drainage noted, repositioned, no respiratory distress noted.
[2017-05-06] MEDS: NORMAL SALINE FLUSH 10 ML DISP.SYRIN IV SCH ×2 (08:15→21:00)
[2017-05-06] MEDS: LORAZEPAM 1 MG TABLET SL PRN (09:25)
[2017-05-06 11:30] VITALS: BP 82/62
[2017-05-06 21:13] VITALS: BP 50/26
[2017-05-07] MEDS: MORPHINE 20MG/ML GT PRN ×12 (02:00→21:54)
[2017-05-07 08:00] VITALS: BP 45/114
[2017-05-07] MEDS: NORMAL SALINE FLUSH 10 ML DISP.SYRIN IV SCH ×2 (09:07→21:56)
--- NOTE | 2017-05-07 15:51 | NUR ---
RESIDENT REMAIN ON HT50 VENT, TOLERATED AND STABLE ON CURRENT VENT SETTINGS, SUCTION PRN, GOOD GAG REFLEX NOTED, VENT CHECKED, ALARMS ON AND AUDIBLE, NO VENT CHANGES AT THIS TIME.
--- NOTE | 2017-05-07 18:38 | NUR ---
Seen by Dr. Gilbert with no new order.
--- NOTE | 2017-05-07 20:00 | NUR ---
On palliative care, connected to vent , morphine given for comfort, no signs of any distress noted, NGT is connected to low intermittent suction, noted with dark green output. ELIZABETH PICC intact and no signs of infection, skin dry to touch. lee catheter intact and draining well to yellow urine ,noted with 25 ml in the urinary bag, good smitha care rendered, turned and repositioned for comfort, will continue monitor.
[2017-05-07 20:33] VITALS: BP 86/50
--- NOTE | 2017-05-07 21:00 | NUR ---
received patient on ht-50 ventilator w/ the following settings that are charted on the mechanical vent notes. suctioned small amounts of thin secretions. trach is patent and secured with trach ties. vent alarms checked and they are on and audible. hme changed. ambu bag and back up trach is by bedside. vent is plugged in red emergency outlet. no sob noted at this time. pt is tolerating current vent settings well. will continue to monitor.
[2017-05-08] VITALS: BP 66/32
[2017-05-08] MEDS: MORPHINE 20MG/ML GT PRN ×13 (00:30→23:00)
[2017-05-08 01:00] VITALS: BP 94/76
[2017-05-08 06:14] VITALS: BP 54/24
--- NOTE | 2017-05-08 07:23 | NUR ---
Trached resident was received on HT-50 vent with the following settings of AC-16, Vt-450, PEEP+5, FIO2-35%. No distress noted. She is trached with a Shiley 6 DCT, WELDING ENGINEER used for cuff assessment. HME changed. Back up trach at bedside. Vent and alarms on and audible. Will continue to monitor.
[2017-05-08 08:00] VITALS: BP 45/17
[2017-05-08] MEDS: NORMAL SALINE FLUSH 10 ML DISP.SYRIN IV SCH (08:58)
--- NOTE | 2017-05-08 10:48 | NUR ---
SEEN BY DR. SHRUTI FULLER.
--- NOTE | 2017-05-08 20:30 | NUR ---
RECEIVED ON CONTINUOUS VENT AC 16 VT 450 PEEP 5 FIO2 35 % . SUCTION PRN. TRACH IN PLACE AND SECURED. BACK UP TRACH AND AMBU BAG AT BEDSIDE. PT REMAINS ON COMFORT MEASURES.VENT CHECKED, ALARMS WORKING WELL AND AUDIBLE. WILL CONTINUE TO MONITOR.
[2017-05-08 20:40] VITALS: BP 80/56
[2017-05-09] MEDS: MORPHINE 20MG/ML GT PRN ×12 (01:00→23:04)
[2017-05-09] MEDS: NORMAL SALINE FLUSH 10 ML DISP.SYRIN IV SCH ×2 (09:00→20:55)
--- NOTE | 2017-05-09 21:03 | NUR ---
pt received on a mechanical ventilator w/ the following settings that are charted on the mechanical vent notes. patients family is present in the room. suctioned small amounts of thin secretions. trach is patent and properly secured with trach ties. vent alarms are on and audible. hme changed, prn. bmv and spare trach is by bedside. vent is plugged in red outlet. no signs or symptoms of respiratory distress noted at this time. pt is tolerating current vent settings well. will continue to monitor patient throughout the shift.
[2017-05-10] MEDS: MORPHINE 20MG/ML GT PRN ×10 (02:00→21:38)
[2017-05-10 08:00] VITALS: BP 51/24
--- NOTE | 2017-05-10 08:42 | NUR ---
PT RECEIVED ON HT-50 VENTILATOR WITH CURRENT SETTINGS OF AC 16, VT 450, PEEP +5, FIO2 35%. NO CHANGES MADE AT THIS TIME. VENT CHECK DONE. ALARMS CHECKED, ARE ON AND FUNCTIONING PROPERLY. TRACH IS PATENT AND SECURED WITH FOAM TRACH TIES. SUCTIONED SMALL AMOUNT OF THICK, YELLOWISH SECRETIONS. HME CHANGED NEEDED. AMBU BAG AND BACK UP TRACH AT BEDSIDE. NO S/S OF RESPIRATORY DISTRESS NOTED AT THIS TIME. WILL CONTINUE TO MONITOR PT.
[2017-05-10] MEDS: NORMAL SALINE FLUSH 10 ML DISP.SYRIN IV SCH ×2 (09:12→21:44)
--- NOTE | 2017-05-10 14:42 | NUR ---
SEEN BY HARSH FULLER,REMAINS COMFORTABLE.
--- NOTE | 2017-05-10 18:35 | NUR ---
PT. REMAINS COMFORTABLE AND MEDICATED ORDERED.
--- NOTE | 2017-05-10 20:19 | NUR ---
Pt rec'd on HT-50 settings AC 16, VT 450, PEEP+5 and FIO2-35%. No resp. distress noted. Shiley 6 is patent and secure; B/U Shiley 6 and BVM at bedside. Pt to be monitored throughout the shift and PRN SX. HT-50 alarm parameters have been checked and remain audible.
[2017-05-10 23:27] VITALS: BP 42/21
[2017-05-11] MEDS: MORPHINE 20MG/ML GT PRN ×12 (01:08→22:23)
[2017-05-11 08:00] VITALS: BP 53/24
[2017-05-11] MEDS: NORMAL SALINE FLUSH 10 ML DISP.SYRIN IV SCH ×2 (09:00→21:50)
--- NOTE | 2017-05-11 11:47 | NUR ---
Patient remains comfortable. Phong Zhou( patient's brother) called for update and stated he will come by and visit this afternoon.
[2017-05-11 22:00] VITALS: BP 49/22
[2017-05-12] MEDS: MORPHINE 20MG/ML GT PRN ×5 (00:08→06:20)
[2017-05-12 07:30] VITALS: BP 45/20
--- NOTE | 2017-05-12 07:30 | NUR ---
PT'S V/S FOLLOW:97.2F,H.R 83X',RR12X',B/P 45/20,O2 SAT 75% AND NOTED COMFORTABLE NO FACIAL GRIMACING.P/A 0/10.SKIN COLD AND VERY PALE.
--- NOTE | 2017-05-12 08:45 | NUR ---
DURING ROUNDS PT. NOTED MORE PALE THAN USUAL AND V/S WERE RE CHECKED CAREFULLY AND OBSERVED ONLY ERRATIC SLOW HEART RATE AND NO B/P AND PT'S BROTHER WAS NOTIFIED IMMEDIATELY DUE TO HE EXPRESSED HIS WISH TO BE WITH HER.RT AND CH. NURSE PRESENT AT BEDSIDE MONITORING V/S AND MAKING SURE PT. WAS COMFORTABLE AND NOT ALONE.
--- NOTE | 2017-05-12 09:00 | NUR ---
PT AND PRONOUNCED BY TYRESE SUAREZ. VITAL SIGNS ZERO .VENT DISCONNECTED AT THIS TIME.
--- NOTE | 2017-05-12 09:10 | NUR ---
NOTED AT THIS TIME :PT. APNEIC X 5 MIN.,PUPILS FIXED AND DILATED ,NO AUDIBLE HEART TONES X 1 MIN,NO BREATH SOUNDS X 1 MIN,NO PALPABLE PULSES X 1 MIN.,NO CORNEAL REFLEXES AND PT. PRONOUNCED AT 0900.DR. ZARCO (MOTEL FRONT DESK CLERK FOR DR. HICKMAN )WAS PAGED(DR. BARNETT WAS NOT MOTEL FRONT DESK CLERK AND HIS MOTEL FRONT DESK CLERK MD THAT COVERS HIM HAS NO PRIVILEGES IN HOSPITAL),DR. ZARCO CALLED BACK AND WAS NOTIFIED AND WITH ORDER TO D/C ALL TX AND RELEASE BODY TO [facility]ORTUARY OF [facility].PT'S BROTHER AZAM WAS CALLED AND AWARE AND STATED THAT HE WAS ONLY 5 MIN AWAY AND THAT PLS DO NOT CALL HIS FATHER DUE TO HE WAS GOING TO DO IT PERSONALLY IN A WAY THAT HE WONT BE TOO AFFECTED DUE TO HIS HEALTH AND AGE.BUT O.K TO CONTACT MORTUARY.
--- NOTE | 2017-05-12 09:15 | NUR ---
NURSING FIRE BOSS NICKY RAND MANAGER COPY MARY LOZANO WAS ALSO NOTIFIED, AND ER CASING CLEANER CLAUDIA LEE WAS ALSO AWARE.[facility] AND [facility] WERE ALSO NOTIFIED.
--- NOTE | 2017-05-12 09:30 | NUR ---
[facility] WAS NOTIFIED AND CASE #[id number] .
--- NOTE | 2017-05-12 09:50 | NUR ---
POST MORTEM CARE WAS DONE AFTER PT'S BROTHER LEFT.
--- NOTE | 2017-05-12 10:10 | NUR ---
BODY WAS RELEASED BY NSG LUMP MAKER AND CH. NURSE TO MORTUARY [facility] PT'S BROTHER REQUESTED.
--- NOTE | 2017-05-12 12:16 | NUR ---
CORRECTED ENTRY :BODY WAS RELEASED TO MORTUARY AT 11:10 AM BY SHANTEL NEWMAN AND SASCHA. NURSE .
== END 2017-05-12 11:10 | disposition expired | DRG 207 ==
LOC: SA 20:54
PROVIDERS: ADMIT Internal Medicine Pulmonary Disease; ATTEND Internal Medicine Pulmonary Disease
PROC: 5A1955Z Respiratory Ventilation, Greater than 96 Consecutive Hours (ICD-10-PCS; principal; 2017-04-13)
PROC: 02HV33Z Insertion of Infusion Device into Superior Vena Cava, Percutaneous Approach (ICD-10-PCS; 2017-04-15)
DX: J96.11 Chronic respiratory failure with hypoxia (principal); G93.1 Anoxic brain damage, not elsewhere classified; A41.9 Sepsis, unspecified organism; K31.6 Fistula of stomach and duodenum; J90 Pleural effusion, not elsewhere classified; I95.9 Hypotension, unspecified; R53.2 Functional quadriplegia; Z99.11 Dependence on respirator [ventilator] status; R18.8 Other ascites; I42.9 Cardiomyopathy, unspecified; L03.311 Cellulitis of abdominal wall; Z51.5 Encounter for palliative care; Z66 Do not resuscitate; R13.10 Dysphagia, unspecified; Z93.1 Gastrostomy status; J96.12 Chronic respiratory failure with hypercapnia; M19.90 Unspecified osteoarthritis, unspecified site; Z93.0 Tracheostomy status; D64.9 Anemia, unspecified; Z87.820 Personal history of traumatic brain injury; Z79.4 Long term (current) use of insulin; Z79.899 Other long term (current) drug therapy; Z88.2 Allergy status to sulfonamides; Z88.0 Allergy status to penicillin; Z98.2 Presence of cerebrospinal fluid drainage device; G40.909 Epilepsy, unspecified, not intractable, without status epilepticus; V89.2XXS Person injured in unspecified motor-vehicle accident, traffic, sequela; K75.81 Nonalcoholic steatohepatitis (NASH); K72.90 Hepatic failure, unspecified without coma; M79.89 Other specified soft tissue disorders; E03.9 Hypothyroidism, unspecified; N18.9 Chronic kidney disease, unspecified; E11.22 Type 2 diabetes mellitus with diabetic chronic kidney disease; E86.9 Volume depletion, unspecified; J45.909 Unspecified asthma, uncomplicated
CPT/HCPCS: 94002; 94003; A4663; J3490